=== PATIENT | male | born 1930 | race Caucasian/White ===

== ENCOUNTER 2017-09-05 18:39 | Inpatient (IN) | payer MEDICARE, MEDICAID ==
[2017-09-05] MEDS ORDERED: Haloperidol Lactate 5 mg/mL 1mL Vial ONE ×2 (19:07→23:02)
[2017-09-05] MEDS ORDERED: Haloperidol Lactate 5 mg/mL 1mL Vial IM STA (19:10)
--- NOTE | 2017-09-05 19:37 | ED Physician Chart ---
ED Chief Complaint/HPI - Patient Information Date Seen:: 09/05/17 Time Seen:: 19:00 Chief Complaint:: COMBATIVE History of Present Illness:: THIS IS A 87 YO COMBATIVE DEMENTED MALE SENT FROM THE GROUP HOME FOR EVALUATION AND TREATMENT. THE PATIENT IS CHRONICALLY ILL WITH HYPERTENSION, GLAUCOMA AND ANEMIA WITH DEMENTIA. Allergies:: Allergies Allergy/AdvReac Type Severity Reaction Status Date / Time No Known Allergies Allergy Verified 09/05/17 18:52 Vitals:: Vital Signs - 8 hr 09/05/17 18:53 Temp 98.9 F HR 86 RR 16 BP 125/81 O2 Sat % 94 Historian:: Medical Records Review:: Nurse's Note Reviewed, Old Chart Reviewed, Transfer documents Reviewed ED Review of Systems - Review of Systems General/Constitutional: No fever, No chills, No weight loss, No weakness, No diaphoresis, No edema, No loss of appetite, Other (THIS PATIENT IS UNABLE TO GIVE A REVIEW OF SYSTEMS) Skin: No skin lesions, No rash, No bruising Head: No headache, No light-headedness Eyes: No loss of vision, No pain, No diplopia ENT: No earache, No nasal drainage, No sore throat, No tinnitus Neck: No neck pain, No swelling, No thyromegaly, No stiffness, No mass noted Cardio Vascular: No chest pain, No palpitations, No PND, No orthopnea, No edema Pulmonary: No SOB, No cough, No sputum, No wheezing GI: No nausea, No vomiting, No diarrhea, No pain, No melena, No hematochezia, No constipation, No hematemesis G/U: No dysuria, No frequency, No hematuria Musculoskeletal: No bone or joint pain, No back pain, No muscle pain Endocrine: No polyuria, No polydipsia Psychiatric: No prior psych history, No depression, No anxiety, No suicidal ideation Hematopoietic: No bruising, No lymphadenopathy Allergic/Immuno: No urticaria, No angioedema Neurological: No syncope, No focal symptoms, No weakness, No paresthesia, No headache, No seizure, No dizziness, No confusion, No vertigo ED Past Medical History - Past Medical History Obtainable: Yes Past Medical History: HTN, Dementia, Other (GLAUCOMA, ANEMIA) Family Medical History - Family Member Mother History Unknown: Yes ED Physical Exam - Physical Examination General/Constitutional: Awake, Well-developed, well-nourished, Alert, No distress, GCS 15, Non-toxic appearing, Ambulatory Other Gen/Cons comments:: COMBATIVE, UNCOOPERATIVE AND CONFUSED. Head: Atraumatic Eyes: Lids, conjuctiva normal, PERRL, EOMI Skin: Nl inspection, No rash, No skin lesions, No ecchymosis, Well hydrated, No lymphadenopathy ENMT: External ears, nose nl, Nasal exam nl, Lips, teeth, gums nl Neck: Nontender, Full ROM w/o pain, No JVD, No nuchal rigidity, No bruit, No mass, No stridor Respiratory: Nl effort/Exclusion, Clear to Auscultation, No Wheeze/Rhonchi/Rales Cardio Vascular: RRR, No murmur, gallop, rubs, NL S1 S2 GI: No tenderness/rebounding/guarding, No organomegaly, No hernia, Normal BS's, Nondistended, No mass/bruits, No McBurney tenderness : No CVA tenderness Extremities: No tenderness or effusion, Full ROM, normal strength in all extremities, No edema, Normal digits & nails Neuro/Psych: Alert/oriented, DTR's symmetric, Normal sensory exam, Normal motor strength, Judgement/insight normal, Mood normal, Normal gait, No focal deficits Other Neuro/Psych comments:: THIS PATIENT IS COMBATIVE AND UNCOOPERATIVE, CONFUSED WITH HITTING OUT. Misc: Normal back, No paraspinal tenderness ED Labs/Radiology/EKG Results - Radiology Results Results: chest x-ray = nad - EKG Interpretations EKG Time:: 22:07 Rate & Rhythm: RATE=71, SINUS [place]: LEFT AXIS ED Assessment - Assessment General Assessment: SEVERE PSYCHOSIS ED Septic Shock - . Is Septic Shock (SBP<90, OR Lactate>4 mmol\L) present?: No - <6hrs of presentation: Vital Signs: Vital Signs - 8 hr 09/05/17 18:53 Temp 98.9 F HR 86 RR 16 BP 125/81 O2 Sat % 94 ED Reassessment (Disposition) - Reassessment Reassessment Condition:: Improved - Diagnosis Diagnosis:: PSYCHOSIS - Patient Disposition Discharge/Transfer:: Acute Care w/in this hosp Admitting Medical Physician:: Prashanth Quintana Admitting Psych Physician:: Allie Clarke Condition at Disposition:: Improved ED Discharge Plan - Patient Disposition Admit/Discharge/Transfer: Acute Care w/in this hosp Condition at Disposition: Improved
[2017-09-05 20:38] LABS: % BASOPHILS 1.2 % (0.0-2.0); % EOSINOPHILS 3.4 % (0.0-5.0); % LYMPHOCYTES 34.3 % (20.0-50.0); % NEUTROPHILS 51.1 % (40.0-80.0); BASOPHILE ABSOLUTE 0.1 Th/cumm (0-0.2); EOSINOPHILE ABSOLUTE 0.2 Th/cmm (0.1-0.4); HEMATOCRIT 39.2 % (41.0-60); LYMPHOCYTE ABSOLUTE 2.3 Th/cmm (1.5-3.0); MEAN CELL VOLUME 88.9 fl (80-99); MEAN CORPUSCULAR HEMOGLOBIN 29.6 pg (27.0-31.0); MEAN CORPUSCULAR HGB CONC 33.3 pg (28.0-36.0); MEAN PLATELET VOLUME 7.2 fl; MONOCYTE ABSOLUTE 0.7 Th/cmm (0.3-1.0); NEUTROPHILE ABSOLUTE 3.5 Th/cmm (1.8-8.0); PLATELET COUNT 237 Th/cmm (150-400); RED BLOOD COUNT 4.41 Mil/cmm (3.80-5.80); WHITE BLOOD COUNT 6.8 Th/cmm (4.8-10.8)
[2017-09-05 20:50] LABS: INR 1.01 (0.5-1.4); PROTHROMBIN TIME (TEST) 10.5 SECONDS (9.5-11.5)
[2017-09-05 20:53] LABS: ALB/GLOB RATIO 1.7 (1.0-1.8); ALBUMIN 3.8 gm/dL (4.2-5.5); ALKALINE PHOSPHATASE 115 U/L (34-104); BILIRUBIN,TOTAL 0.3 mg/dL (0.3-1.0); BUN - UREA NITROGEN 23 mg/dL (7-25); CALCIUM SERUM 9.5 mg/dL (8.6-10.3); CARBON DIOXIDE 25.9 mEq/L (21.0-31.0); CHLORIDE 107 mEq/L (98-107); GLUCOSE 89 mg/dL (70-105); POTASSIUM SERUM 4.9 mEq/L (3.5-5.1); SGOT 21 U/L (13-39); SGPT/ALT 15 U/L (7-52); SODIUM SERUM 139 mEq/L (136-145); TOTAL PROTEIN,SERUM 6.1 gm/dL (6.0-8.3)
[2017-09-06 00:16] VITALS: BP 162/80
[2017-09-06] MEDS ORDERED: Magnesium Hydroxide (MOM) 30 mL UDC PO PRN (00:17)
[2017-09-06] MEDS ORDERED: Maalox 30 mL Cup PO PRN (00:17)
[2017-09-06] MEDS ORDERED: Influenza Vaccine 0.5 mL Syr IM ONE (04:21)
--- NOTE | 2017-09-06 05:26 | History and Physical ---
History of Present Illness - HPI Chief Complaint: Combativeness HPI: 87 Y/O male who presents to [facility] ER who was sent from SNF for COMBATIVE behavior and increased DEMENTIA noted by the stadd at the [facility]. Was sent FOR EVALUATION AND TREATMENT. PMH includes HYPERTENSION, BPH, GLAUCOMA AND ANEMIA WITH DEMENTIA. VS T98.2 P102 BP 141/74 R20 Vital Signs: Last Vital Signs Temp 97.4 F 09/06/17 00:14 Pulse 73 09/06/17 00:14 Resp 20 09/06/17 00:14 BP 162/80 09/06/17 00:16 Pulse Ox 96 09/06/17 00:14 Past Medical History Cardiovascular: Report: HTN Pulmonary: Report: No Pertinent Hx RED LEADER: Report: Dementia GI: Report: Constipation Psych: Report: Psychosis Musculoskeletal: Report: No Pertinent Hx Rheumatologic: Report: No pertinent Hx Infectious Disease: Report: No Pertinent Hx Renal/: Report: No Pertinent Hx Endocrine: Report: No Pertinent Hx Dermatology: Report: No Pertinent Hx - Past Surgical History Past Surgical History: No pertinent Hx Family Medical History - Family Member Mother History Unknown: Yes Social History Smoke: No Alcohol: None Drugs: None Lives: Alone - Medications Home Medications: Home Medication Medication Instructions Recorded Type Acetaminophen [Tylenol] 650 mg PO Q6HR PRN 09/05/17 History Ascorbate Calcium [Vitamin C] 500 mg PO DAILY 09/05/17 History Clonidine HCl [Catapres] 0.1 mg PO Q8H PRN 09/05/17 History Donepezil HCl [Aricept] 10 mg PO HS 09/05/17 History Ferrous Sulfate 330 mg PO BID 09/05/17 History Furosemide [Lasix] 20 mg PO DAILY 09/05/17 History Lactose-Reduced Food [Ensure Plus 240 ml PO DAILY 09/05/17 History 240 ml] Lactose-Reduced Food [High-Protein 8 oz PO BID 09/05/17 History Nutritional Shake] Latanoprost 0.005% Ophth Soln 1 drop EACH EYE HS 09/05/17 History [Xalatan 0.005% Ophth Soln] Lorazepam [Ativan] 0.5 mg PO Q6H PRN 09/05/17 History Tamsulosin [Flomax] 0.4 mg PO HS 09/05/17 History amLODIPine Besylate [Norvasc] 5 mg PO DAILY 09/05/17 History - Allergies Allergies/Adverse Reactions: Allergies Allergy/AdvReac Type Severity Reaction Status Date / Time No Known Allergies Allergy Verified 09/05/17 18:52 Review of Systems - Review of Systems Constitutional: Report: No Significant Eyes: Report: No Significant ENT: Report: No Significant Respiratory: Report: No Significant Cardiovascular: Report: No Significant Gastrointestinal: Report: No Significant Genitourinary: Report: No Significant Musculoskeletal: Report: No Significant Skin: Report: No Significant Neurological: Report: No Significant Physical Exam - Physical Exam HEENT: Report: Ears Nose Throat within normal limits, Pharnyx within normal limits Neck: Report: Within normal limits Cardiovascular Systems: Report: +s1/s2 noted, Regular, Rate and Rhythm Respiratory: Report: Breath Sounds are within normal limits, Clear to Auscultation of lung lloyd Abdomen: Report: Non-tender to palpation Back: Report: Inspection of back is within normal limits. Extremities: Report: Non-tender to palpation. Skin: Report: Color of skin is within normal limits Neuro/Psych: Report: Mood affect is within normal limits, A+Ox3 - Assessment Assessment: Current Active Problems Problem Status Onset INCREASED AGITATION AND CONFUSION Acute Psychosis HTN Dementia BPH Insomnia - Plan Plan: admit to [facility] continue home meds
[2017-09-06] MEDS ORDERED: FERROUS SULFATE 330 MG PO SCH (09:00)
--- NOTE | 2017-09-06 09:46 | Diagnostic Imaging Report ---
Chest x-ray single view History: Chest pain Comparison: None The heart size is normal. No focal pulmonary parenchymal processes. No hilar or mediastinal abnormalities. COPD changes are noted. Healed fracture of the left clavicle noted Impression: No acute abnormalities.
[2017-09-06] MEDS: Ferrous Sulfate 325 MG TAB PO SCH ×2 (10:00→18:24)
[2017-09-06] MEDS: Multivitamin Tab PO SCH (10:00)
--- NOTE | 2017-09-07 05:39 | General Progress Note ---
Subjective - Review of Systems Service Date: 09/07/17 Subjective: Awake, Afebrile. but confused. VST97.8 P78 R18 BP 120/66 Objective - Results Result Diagrams: 09/05/17 20:09/05/17 20: Recent Labs: Laboratory Last Values WBC 6.8 Th/cmm (4.8-10.8) 09/05/17 20: RBC 4.41 Mil/cmm (3.80-5.80) 09/05/17 20: Hgb 13.0 gm/dL (12-16) 09/05/17 20: Hct 39.2 % (41.0-60) L 09/05/17 20: MCV 88.9 fl (80-99) 09/05/17 20: MCH 29.6 pg (27.0-31.0) 09/05/17 20: MCHC Differential 33.3 pg (28.0-36.0) 09/05/17 20: RDW 14.0 % (11.5-20.0) 09/05/17 20: Plt Count 237 Th/cmm (150-400) 09/05/17 20:21 MPV 7.2 fl 09/05/17 20:21 Neutrophils % 51.1 % (40.0-80.0) 09/05/17 20: Lymphocytes % 34.3 % (20.0-50.0) 09/05/17 20: Monocytes % 10.0 % (2.0-10.0) 09/05/17 20: Eosinophils % 3.4 % (0.0-5.0) 09/05/17 20: Basophils % 1.2 % (0.0-2.0) 09/05/17 20: PT 10.5 SECONDS (9.5-11.5) 09/05/17 20: INR 1.01 (0.5-1.4) 09/05/17 20: PTT (Actin FS) 27.7 SECONDS (26.0-38.0) 09/05/17 20:21 Sodium 139 mEq/L (136-145) 09/05/17 20:21 Potassium 4.9 mEq/L (3.5-5.1) 09/05/17 20:21 Chloride 107 mEq/L (98-107) 09/05/17 20:21 Carbon Dioxide 25.9 mEq/L (21.0-31.0) 09/05/17 20:21 Anion Gap 11.0 (7.0-16.0) 09/05/17 20:21 BUN 23 mg/dL (7-25) 09/05/17 20:21 Creatinine 1.0 mg/dL (0.7-1.3) 09/05/17 20:21 Est GFR ( Amer) TNP 09/05/17 20:21 Est GFR (Non-Af Amer) TNP 09/05/17 20:21 BUN/Creatinine Ratio 23.0 09/05/17 20:21 Glucose 89 mg/dL (70-105) 09/05/17 20:21 Calcium 9.5 mg/dL (8.6-10.3) 09/05/17 20:21 Total Bilirubin 0.3 mg/dL (0.3-1.0) 09/05/17 20:21 AST 21 U/L (13-39) 09/05/17 20:21 ALT 15 U/L (7-52) 09/05/17 20:21 Alkaline Phosphatase 115 U/L (34-104) H 09/05/17 20:21 Troponin I 0.02 ng/mL (0.01-0.05) 09/05/17 20:21 Total Protein 6.1 gm/dL (6.0-8.3) 09/05/17 20:21 Albumin 3.8 gm/dL (4.2-5.5) L 09/05/17 20:21 Globulin 2.3 gm/dL 09/05/17 20:21 Albumin/Globulin Ratio 1.7 (1.0-1.8) 09/05/17 20:21 TSH 2.30 uIU/ml (0.34-5.60) 09/05/17 20:21 - Physical Exam Vitals and I&O: Vital Signs Temp 97.8 F 09/06/17 20:35 Pulse 78 09/06/17 20:35 Resp 18 09/06/17 20:35 BP 120/66 09/06/17 14:00 Pulse Ox 98 09/06/17 20:35 Intake & Output 03/2409/06/17 09/07/17 06:59 18:59 06:59 Intake Total 120 1640 320 Balance 120 1640 320 Intake: Oral 120 1640 320 Other: # Voids 1 4 1 # Bowel Movements 0 Active Medications: Current Medications Acetaminophen (Tylenol) 650 mg PO Q4HR PRN PRN Reason: Mild Pain / Temp above 100 Stop: 11/05/17 00:16 Al Hydrox/Mg Hydrox/Simethicone (Maalox) 30 ml PO Q4HR PRN PRN Reason: GI DISTRESS Stop: 11/05/17 00:16 Amlodipine Besylate (Norvasc) 5 mg PO DAILY ANG Stop: 11/05/17 08:59 Last Admin: 09/06/17 10:00 Dose: Not Given Ascorbic Acid (Vitamin C) 500 mg PO DAILY ANG Stop: 11/05/17 08:59 Last Admin: 09/06/17 10:00 Dose: Not Given Diphenhydramine HCl (Benadryl 50 Mg/Ml) 50 mg IM Q4HR PRN PRN Reason: Agitation Stop: 11/04/17 21:25 Last Admin: 09/05/17 21:34 Dose: 50 mg Donepezil HCl (Aricept) 10 mg PO HS ANG Stop: 11/05/17 20:59 Last Admin: 09/06/17 22:00 Dose: 10 mg Ferrous Sulfate (Iron) 325 mg PO BID ANG Stop: 11/05/17 08:59 Last Admin: 09/06/17 18:24 Dose: 325 mg Furosemide (Lasix) 20 mg PO DAILY ANG Stop: 11/05/17 08:59 Last Admin: 09/06/17 10:00 Dose: Not Given Latanoprost (Xalatan 0.005% Ophth Soln) 1 drop EACH EYE HS ANG Stop: 11/05/17 20:59 Last Admin: 09/06/17 22:00 Dose: 1 drop Magnesium Hydroxide (Milk Of Magnesia) 30 ml PO HS PRN PRN Reason: Constipation Memantine (Namenda) 5 mg PO DAILY ANG Stop: 11/06/17 08:59 Multivitamins/Vitamin C (Theragran) 1 tab PO DAILY ANG Stop: 11/05/17 08:59 Last Admin: 09/06/17 10:00 Dose: Not Given Olanzapine (Zyprexa) 2.5 mg PO BID ANG PRN Reason: Protocol Stop: 11/05/17 16:59 Last Admin: 09/06/17 16:29 Dose: 2.5 mg Tamsulosin HCl (Flomax) 0.4 mg PO HS ANG Stop: 11/05/17 20:59 Last Admin: 09/06/17 20:00 Dose: 0.4 mg Zolpidem Tartrate (Ambien) 5 mg PO HS PRN PRN Reason: Insomnia Stop: 11/05/17 00:16 Last Admin: 09/06/17 22:14 Dose: 5 mg General: Alert, Oriented x3, No acute distress HEENT: Atraumatic, PERRLA, EOMI Neck: Supple, no JVD Cardiovascular: Regular rate, Normal S1, Normal S2 Lungs: Clear to auscultation Abdomen: Bowel sounds Extremities: no Clubbing, no Cyanosis, no Edema Neurological: Normal gait Assessment/Plan - Problem List Patient Problems: All Active Problems INCREASED AGITATION AND CONFUSION (Acute) - Assessment Assessment: Current Active Problems Problem Status Onset INCREASED AGITATION AND CONFUSION Acute Psychosis HTN Dementia BPH Insomnia - Plan Plan: admit to [facility] continue home meds
[2017-09-07] MEDS: Ferrous Sulfate 325 MG TAB PO SCH ×2 (11:29→17:54)
[2017-09-07] MEDS: Multivitamin Tab PO SCH (11:41)
--- NOTE | 2017-09-07 17:42 | Psychosocial Evaluation ---
DATE OF SERVICE: INITIAL PSYCHIATRIC EVALUATION COVERING FOR: Dr. Clarke. IDENTIFYING DATA: The patient is an 87-year-old male. CHIEF COMPLAINT: Confused. HISTORY OF PRESENT ILLNESS: He is an 87-year-old male who was initially brought in here by [facility], was sent from his [facility] after presenting with combative and also behavior psychotic and also medically cleared prior to being transferred here. Today, on [id number] evaluation, the patient observed to be slightly sedated after given Haldol IM injection for agitated and aggressive behavior yesterday, very extremely poor historian, limited historian. He is still a kind of sleepy from yesterday, unable to get much information. We will obtain more collateral baseline information. PAST MEDICAL HISTORY: Include hypertension, BPH, glaucoma, anemia. PAST PSYCHIATRIC HISTORY: Dementia. HOME MEDICATIONS: Include acetaminophen, clonidine, benazepril 10 mg a day, ferrous sulfate, Lasix, lactulose, ____, Ativan as needed, amlodipine. ALLERGIES TO MEDICATIONS: NKDA. FAMILY PSYCHIATRIC HISTORY: Unknown. LEGAL HISTORY: Unknown. PSYCHOSOCIAL ENVIRONMENTAL HISTORY: No alcohol or drug use. Currently living in a [facility]p. LABORATORY DATA: Reviewed, unremarkable. MENTAL STATUS EXAMINATION: Slightly sedated, difficult to wake up, but redirectable. Unable to assess thought process, thought content, derailed, delusional. Limited insight ____ control. ASSESSMENT: PHYSICAL PAIN: 0 out of 10, no physical impairment. STRENGTH: Open to treatment. WEAKNESS: Poor coping skills. PROVISIONAL DIAGNOSTIC IMPRESSION: Dementia with behavior disturbances and psychosis. SECONDARY DIAGNOSIS: None. MEDICAL DIAGNOSIS: As noted above. ASSESSMENT AND PLAN: The patient is an 87-year-old male with a history of severe dementia with recent exacerbation of behavior. PLAN: We will continue monitoring and evaluating. We will continue with the current medication regimen and augment with Namenda 5 mg and allow the residual ____ from the sedation of medications to further evaluate and obtain more collateral information. Estimated stay between 2-4 weeks. DISCHARGE CRITERIA: The patient is to demonstrate euthymic mood, no suicidal or homicidal ideation, good psychiatric followup, and good [id number] interaction. [facility]# [id number]
--- NOTE | 2017-09-08 08:20 | General Progress Note ---
Subjective - Review of Systems Service Date: 09/08/17 Subjective: Awake, Afebrile. but confused. VST97.2 P84 R18 BP 122/67 Objective - Results Result Diagrams: 09/05/17 20:09/05/17 20: Recent Labs: Laboratory Last Values WBC 6.8 Th/cmm (4.8-10.8) 09/05/17 20: RBC 4.41 Mil/cmm (3.80-5.80) 09/05/17 20: Hgb 13.0 gm/dL (12-16) 09/05/17 20: Hct 39.2 % (41.0-60) L 09/05/17 20: MCV 88.9 fl (80-99) 09/05/17 20: MCH 29.6 pg (27.0-31.0) 09/05/17 20: MCHC Differential 33.3 pg (28.0-36.0) 09/05/17 20: RDW 14.0 % (11.5-20.0) 09/05/17 20: Plt Count 237 Th/cmm (150-400) 09/05/17 20:21 MPV 7.2 fl 09/05/17 20:21 Neutrophils % 51.1 % (40.0-80.0) 09/05/17 20: Lymphocytes % 34.3 % (20.0-50.0) 09/05/17 20: Monocytes % 10.0 % (2.0-10.0) 09/05/17 20: Eosinophils % 3.4 % (0.0-5.0) 09/05/17 20: Basophils % 1.2 % (0.0-2.0) 09/05/17 20: PT 10.5 SECONDS (9.5-11.5) 09/05/17 20: INR 1.01 (0.5-1.4) 09/05/17 20: PTT (Actin FS) 27.7 SECONDS (26.0-38.0) 09/05/17 20:21 Sodium 139 mEq/L (136-145) 09/05/17 20:21 Potassium 4.9 mEq/L (3.5-5.1) 09/05/17 20:21 Chloride 107 mEq/L (98-107) 09/05/17 20:21 Carbon Dioxide 25.9 mEq/L (21.0-31.0) 09/05/17 20:21 Anion Gap 11.0 (7.0-16.0) 09/05/17 20:21 BUN 23 mg/dL (7-25) 09/05/17 20:21 Creatinine 1.0 mg/dL (0.7-1.3) 09/05/17 20:21 Est GFR ( Amer) TNP 09/05/17 20:21 Est GFR (Non-Af Amer) TNP 09/05/17 20:21 BUN/Creatinine Ratio 23.0 09/05/17 20:21 Glucose 89 mg/dL (70-105) 09/05/17 20:21 Calcium 9.5 mg/dL (8.6-10.3) 09/05/17 20:21 Total Bilirubin 0.3 mg/dL (0.3-1.0) 09/05/17 20:21 AST 21 U/L (13-39) 09/05/17 20:21 ALT 15 U/L (7-52) 09/05/17 20:21 Alkaline Phosphatase 115 U/L (34-104) H 09/05/17 20:21 Troponin I 0.02 ng/mL (0.01-0.05) 09/05/17 20:21 Total Protein 6.1 gm/dL (6.0-8.3) 09/05/17 20:21 Albumin 3.8 gm/dL (4.2-5.5) L 09/05/17 20:21 Globulin 2.3 gm/dL 09/05/17 20:21 Albumin/Globulin Ratio 1.7 (1.0-1.8) 09/05/17 20:21 TSH 2.30 uIU/ml (0.34-5.60) 09/05/17 20:21 - Physical Exam Vitals and I&O: Vital Signs Temp 97.2 F 09/08/17 06:48 Pulse 84 09/08/17 06:48 Resp 18 09/08/17 06:48 BP 122/67 09/08/17 06:48 Pulse Ox 96 09/08/17 06:48 Intake & Output 09/07/17 09/08/1709/08/18 18:59 06:59 18:59 Intake Total 770 240 Balance 770 240 Intake: Oral 770 240 Other: # Voids 3 1 # Bowel Movements 0 Active Medications: Current Medications Acetaminophen (Tylenol) 650 mg PO Q4HR PRN PRN Reason: Mild Pain / Temp above 100 Stop: 11/05/17 00:16 Al Hydrox/Mg Hydrox/Simethicone (Maalox) 30 ml PO Q4HR PRN PRN Reason: GI DISTRESS Stop: 11/05/17 00:16 Amlodipine Besylate (Norvasc) 5 mg PO DAILY ANG Stop: 11/05/17 08:59 Last Admin: 09/07/17 11:28 Dose: 5 mg Ascorbic Acid (Vitamin C) 500 mg PO DAILY ANG Stop: 11/05/17 08:59 Last Admin: 09/07/17 11:29 Dose: 500 mg Diphenhydramine HCl (Benadryl 50 Mg/Ml) 50 mg IM Q4HR PRN PRN Reason: Agitation Stop: 11/04/17 21:25 Last Admin: 09/05/17 21:34 Dose: 50 mg Donepezil HCl (Aricept) 10 mg PO HS ANG Stop: 11/05/17 20:59 Last Admin: 09/07/17 21:28 Dose: 10 mg Ferrous Sulfate (Iron) 325 mg PO BID ANG Stop: 11/05/17 08:59 Last Admin: 09/07/17 17:54 Dose: Not Given Furosemide (Lasix) 20 mg PO DAILY ANG Stop: 11/05/17 08:59 Last Admin: 09/07/17 11:29 Dose: 20 mg Latanoprost (Xalatan 0.005% Ophth Soln) 1 drop EACH EYE HS ANG Stop: 11/05/17 20:59 Last Admin: 09/07/17 21:29 Dose: 1 drop Magnesium Hydroxide (Milk Of Magnesia) 30 ml PO HS PRN PRN Reason: Constipation Memantine (Namenda) 5 mg PO DAILY ANG Stop: 11/06/17 08:59 Last Admin: 09/07/17 11:41 Dose: 5 mg Multivitamins/Vitamin C (Theragran) 1 tab PO DAILY ANG Stop: 11/05/17 08:59 Last Admin: 09/07/17 11:41 Dose: 1 tab Olanzapine (Zyprexa) 2.5 mg PO DAILY ANG PRN Reason: Protocol Stop: 11/06/17 08:59 Last Admin: 09/07/17 11:40 Dose: 2.5 mg Olanzapine (Zyprexa) 5 mg PO HS ANG PRN Reason: Protocol Stop: 11/06/17 20:59 Last Admin: 09/07/17 21:28 Dose: 5 mg Tamsulosin HCl (Flomax) 0.4 mg PO HS ANG Stop: 11/05/17 20:59 Last Admin: 09/07/17 21:28 Dose: 0.4 mg Zolpidem Tartrate (Ambien) 5 mg PO HS PRN PRN Reason: Insomnia Stop: 11/05/17 00:16 Last Admin: 09/07/17 21:28 Dose: 5 mg General: Alert, Oriented x3, No acute distress HEENT: Atraumatic, PERRLA, EOMI Neck: Supple, no JVD Cardiovascular: Regular rate, Normal S1, Normal S2 Lungs: Clear to auscultation Abdomen: Bowel sounds Extremities: no Clubbing, no Cyanosis, no Edema Neurological: Normal gait Assessment/Plan - Problem List Patient Problems: All Active Problems INCREASED AGITATION AND CONFUSION (Acute) - Assessment Assessment: Current Active Problems Problem Status Onset INCREASED AGITATION AND CONFUSION Acute Psychosis HTN Dementia BPH Insomnia - Plan [facility]
--- NOTE | 2017-09-08 08:58 | Progress Notes ---
DATE: 09/07/2017 SUBJECTIVE: The patient was seen and evaluated. The patient's chart reviewed. This is Dr. Valentine covering for Dr. Clarke. Nursing staff reported that overnight the patient continues to disrobe, disengage, could not sleep at all last night. Today on [id number] evaluation on interview, minimally interactive, disorganized, mostly just stares. MENTAL STATUS EXAMINATION: Disorganized thought process, disengaged, severely memory and cognitively impaired. ASSESSMENT AND PLAN: The patient is an 87-year-old severely cognitively impaired with dementia. We will continue consolidating his Zyprexa to nighttime to 5 mg to continue to targeting the insomnia that exacerbates the patient's behavior of disrobing. Continue with the neurocognitive enhancer while we obtain more collateral baseline information and awaiting medical consultation. JOB# [id number]
[2017-09-08] MEDS: Ferrous Sulfate 325 MG TAB PO SCH ×2 (09:30→16:46)
[2017-09-08] MEDS: Multivitamin Tab PO SCH (09:31)
[2017-09-08] MEDS ORDERED: Albuterol/Ipratropium Neb 3 ML AERS HHN PRN (15:05)
--- NOTE | 2017-09-08 15:13 | Diagnostic Imaging Report ---
CHEST X-RAY: AP view INDICATION: Pneumonia COMPARISON: 09/05/2017 FINDINGS: Bibasal infiltrates are noted. Small bilateral effusions are noted. Height size is normal. IMPRESSION: Bibasal infiltrates and small bilateral effusions..
[2017-09-08 17:40] LABS: pH 7.46 (7.35-7.45)
[2017-09-08 17:48] LABS: ANION GAP 13.6 (7.0-16.0); BUN - UREA NITROGEN 48 mg/dL (7-25); CARBON DIOXIDE 23.6 mEq/L (21.0-31.0); CHLORIDE 103 mEq/L (98-107); CREATININE - SERUM 1.2 mg/dL (0.7-1.3); GLUCOSE 193 mg/dL (70-105); POTASSIUM SERUM 4.2 mEq/L (3.5-5.1); SODIUM SERUM 136 mEq/L (136-145)
[2017-09-08 18:02] LABS: % EOSINOPHILS 0.2 % (0.0-5.0); % LYMPHOCYTES 6.5 % (20.0-50.0); % MONOCYTES 8.5 % (2.0-10.0); % NEUTROPHILS 84.8 % (40.0-80.0); HEMATOCRIT 40.5 % (41.0-60); HEMOGLOBIN 13.3 gm/dL (12-16); LYMPHOCYTE ABSOLUTE 0.9 Th/cmm (1.5-3.0); MEAN CELL VOLUME 88.8 fl (80-99); MEAN CORPUSCULAR HEMOGLOBIN 29.2 pg (27.0-31.0); MEAN CORPUSCULAR HGB CONC 32.9 pg (28.0-36.0); MONOCYTE ABSOLUTE 1.1 Th/cmm (0.3-1.0); NEUTROPHILE ABSOLUTE 11.2 Th/cmm (1.8-8.0); PLATELET COUNT 173 Th/cmm (150-400); RED BLOOD COUNT 4.56 Mil/cmm (3.80-5.80); RED CELL DISTRIBUTION WIDTH 14.1 % (11.5-20.0)
[2017-09-08 18:06] LABS: WHITE BLOOD COUNT 13.2 Th/cmm (4.8-10.8)
[2017-09-09 16:09] LABS: A1C % 5.1 % (4.0-6.0)
== END 2017-09-08 18:04 | DRG 885 ==
LOC: ER 18:39 → GERO 21:10
PROVIDERS: ADMIT Psychiatry & Neurology Psychiatry; ATTEND Psychiatry & Neurology Psychiatry
DX: F29 Unspecified psychosis not due to a substance or known physiological condition (principal); F03.91 Unspecified dementia, unspecified severity, with behavioral disturbance; D64.9 Anemia, unspecified; I10 Essential (primary) hypertension; N40.0 Benign prostatic hyperplasia without lower urinary tract symptoms; G47.00 Insomnia, unspecified; H40.9 Unspecified glaucoma
CPT/HCPCS: 36415-UA; 36600-90; 71045-TC; 80048-TC; 80053-TC; 82803-TC; 82948-90; 83036-90; 83880-TC; 84443-TC; 84484-TC; 85007-TC; 85025-TC; 85027-TC; 85610-TC; 85730-TC; 93005; 94640; 94760; J1200; J1630; J2060; J7051; Z7610

== ENCOUNTER 2017-09-08 18:05 | Inpatient (IN) | payer MEDICARE, MEDICAID ==
--- NOTE | 2017-09-08 21:07 | Progress Notes ---
DATE: 09/08/2017 Case was discussed with staff of the patient, reviewed records. This is a well-known case to me. I have been seeing him at [facility]. The patient is demented, confused. He was sent from [facility] to his nursing facility after presenting he was combative and psychotic. He was medically cleared before transferring him here. He was somewhat sedated, given Haldol upon admission because of his behavior the day before. He was a very poor historian and limited, which has been all the time since I have been seeing him. The patient also with a history of dementia and also hypertension, glaucoma, and anemia. The patient is unable to participate in any meaningful conversation or make safe plan for self-care. He is unpredictable, impulsive, needing redirection. He has been on Aricept 10 mg at bedtime and Namenda 5 mg daily that was initiated yesterday by Dr. Valentine and he is also on Zyprexa 2.5 mg in the morning and 5 mg at bedtime. Unable to tell me the date where he is, why he is here. No side effects with the medication, no sedation nausea, no extrapyramidal symptoms. We will continue to work with the patient in group therapy, milieu therapy, adjust medication as needed. JOB# [id number]
[2017-09-08] MEDS ORDERED: Maalox 30 mL Cup PO PRN (22:13)
[2017-09-08] MEDS ORDERED: Magnesium Hydroxide (MOM) 30 mL UDC PO PRN (22:21)
[2017-09-08] MEDS ORDERED: Pneumococcal Vaccine 0.5 mL Vial IM ONE (22:44)
[2017-09-08] MEDS ORDERED: Influenza Vaccine 0.5 mL Syr IM ONE (22:44)
[2017-09-09] MEDS ORDERED: Levofloxacin 500mg/100mL 500 MG/100 ML BAG IV SCH (07:00)
[2017-09-09] MEDS: Albuterol/Ipratropium Neb 3 ML AERS HHN PRN (07:34)
--- NOTE | 2017-09-09 08:25 | History and Physical ---
History of Present Illness - HPI Chief Complaint: pneumonia HPI: 87 y/o male who was transferred from [facility] to Medical floor for possible pneumonia. patient was initially admitted to [facility] for psychosis but became short of breath. Chest xray revealed bilateral infiltrate and patient was transferred for further evaluation and treatment. initial labwork Vital Signs: Last Vital Signs Temp 97.9 F 09/09/17 04:00 Pulse 87 09/09/17 07:34 Resp 20 09/09/17 07:34 BP 145/72 09/09/17 04:00 Pulse Ox 95 09/09/17 07:34 Past Medical History Cardiovascular: Report: No Pertinent Hx Pulmonary: Report: Pneumonia [employer]: Report: No Pertinent Hx GI: Report: No Pertinent Hx Psych: Report: No Pertinent Hx Musculoskeletal: Report: No Pertinent Hx Rheumatologic: Report: No pertinent Hx Infectious Disease: Report: No Pertinent Hx Renal/: Report: No Pertinent Hx Endocrine: Report: No Pertinent Hx Dermatology: Report: No Pertinent Hx - Past Surgical History Past Surgical History: No pertinent Hx Family Medical History - Family Member Mother History Unknown: Yes Social History Smoke: No Alcohol: None Drugs: None Lives: Senior Living - Medications Home Medications: Home Medication Medication Instructions Recorded Type Acetaminophen [Tylenol] 650 mg PO Q4HR PRN tab 09/08/17 Rx Al Hyd/Mg Hyd/Simethicone [Maalox] 30 ml PO Q4HR PRN udc 09/08/17 Rx Albuterol/Ipratropium Neb [Duoneb 3 ml HHN Q4H PRN aers 09/08/17 Rx Neb] Ascorbic Acid [Vitamin C] 500 mg PO DAILY tab 09/08/17 Rx Donepezil Hcl [Aricept] 10 mg PO HS tab 09/08/17 Rx Ferrous Sulfate [Iron] 325 mg PO BID tab 09/08/17 Rx Furosemide [Lasix] 20 mg PO DAILY tab 09/08/17 Rx Latanoprost 0.005% Ophth Soln 1 drop EACH EYE HS drops 09/08/17 Rx [Xalatan 0.005% Ophth Soln] Magnesium Hydroxide [Milk of 30 ml PO HS PRN udc 09/08/17 Rx Magnesia] Memantine [Namenda] 5 mg PO DAILY tab 09/08/17 Rx Multivitamin [Theragran] 1 tab PO DAILY tab 09/08/17 Rx OLANZapine [ZyPREXA] 2.5 mg PO DAILY tab 09/08/17 Rx OLANZapine [ZyPREXA] 5 mg PO HS tab 09/08/17 Rx Tamsulosin [Flomax] 0.4 mg PO HS cap 09/08/17 Rx Zolpidem Tartrate [Ambien] 5 mg PO HS PRN tab 09/08/17 Rx amLODIPine Besylate [Norvasc] 5 mg PO DAILY tab 09/08/17 Rx cloNIDine HCl [Catapres] 0.1 mg PO Q8H PRN tab 09/08/17 Rx diphenhydrAMINE [Benadryl 50 50 mg IM Q4HR PRN vial 09/08/17 Rx mg/mL] - Allergies Allergies/Adverse Reactions: Allergies Allergy/AdvReac Type Severity Reaction Status Date / Time No Known Allergies Allergy Verified 09/05/17 18:52 Review of Systems - Review of Systems Constitutional: Report: No Significant Eyes: Report: No Significant ENT: Report: No Significant Respiratory: Report: Cough, Wheezing Cardiovascular: Report: No Significant Gastrointestinal: Report: No Significant Genitourinary: Report: No Significant Musculoskeletal: Report: No Significant Skin: Report: No Significant Neurological: Report: No Significant Physical Exam - Physical Exam HEENT: Report: Ears Nose Throat within normal limits, Pharnyx within normal limits Neck: Report: Within normal limits Cardiovascular Systems: Report: +s1/s2 noted, Regular, Rate and Rhythm Respiratory: Report: Wheezing Abdomen: Report: Non-tender to palpation - Lab Results All Lab Results last 24 hours: Laboratory Results - last 24 hr 09/09/17 08:06 POC Glucose 116 H - Assessment Assessment: leukocytosis pneumonia htn bph glaucoma anemia dementia psychosis prerenal azotemia - Plan Plan: cbc cmp pulmonary consult id consult psyche consult levofloxacin 500mg IV daily gentle hydration
[2017-09-09] MEDS: Sodium Chloride 0.45% 1,000 ML IV SCH (08:49)
[2017-09-09] MEDS: Multivitamin Tab PO SCH (08:53)
[2017-09-09] MEDS ORDERED: Ferrous Sulfate 325 MG TAB PO SCH (09:00)
--- NOTE | 2017-09-09 09:05 | Diagnostic Imaging Report ---
Portable chest x-ray HISTORY: Shortness of breath Compared with the prior exam of September 03, 2015, 2017, persistent infiltrate is seen in the left lower lobe. The findings have increased since an exam of September 05, 2017. Changes suggest pneumonia. Clinical correlation is needed. IMPRESSION: 1. No change since September 08, 2017 with infiltrate in the left lower lobe. The findings have increased compared to September 05, 2017. Pneumonia cannot be excluded. Clinical correlation is needed.
[2017-09-09 10:51] LABS: % BASOPHILS 0.2 % (0.0-2.0); % EOSINOPHILS 0.2 % (0.0-5.0); % LYMPHOCYTES 11.2 % (20.0-50.0); % MONOCYTES 10.5 % (2.0-10.0); % NEUTROPHILS 77.9 % (40.0-80.0); HEMATOCRIT 37.4 % (41.0-60); HEMOGLOBIN 12.5 gm/dL (12-16); MEAN CELL VOLUME 88.5 fl (80-99); MEAN CORPUSCULAR HEMOGLOBIN 29.5 pg (27.0-31.0); MEAN CORPUSCULAR HGB CONC 33.4 pg (28.0-36.0); MEAN PLATELET VOLUME 7.9 fl; MONOCYTE ABSOLUTE 0.9 Th/cmm (0.3-1.0); NEUTROPHILE ABSOLUTE 6.9 Th/cmm (1.8-8.0); PLATELET COUNT 182 Th/cmm (150-400); RED BLOOD COUNT 4.23 Mil/cmm (3.80-5.80); RED CELL DISTRIBUTION WIDTH 13.9 % (11.5-20.0); WHITE BLOOD COUNT 8.8 Th/cmm (4.8-10.8)
[2017-09-09 11:02] LABS: ANION GAP 12.8 (7.0-16.0); BUN - UREA NITROGEN 40 mg/dL (7-25); CALCIUM SERUM 9.5 mg/dL (8.6-10.3); CARBON DIOXIDE 23.9 mEq/L (21.0-31.0); CHLORIDE 106 mEq/L (98-107); CREATININE - SERUM 0.9 mg/dL (0.7-1.3); GLUCOSE 140 mg/dL (70-105); POTASSIUM SERUM 3.7 mEq/L (3.5-5.1); SODIUM SERUM 139 mEq/L (136-145)
--- NOTE | 2017-09-09 23:13 | Progress Notes ---
DATE: 09/09/2017 SUBJECTIVE: Case is discussed with the staff of the patient and reviewed records. This is a well-known case to me as I have been seeing him at [facility] and he was admitted to [facility] because of his acting-out behavior and apparently he developed pneumonia, so transferred to the medical floor. Since being transferred into the unit, the patient was pulling his IVs and they have to put mittens for him, so he could be treated. He is demented, confused, unable to make safe plan for self-care, and so far no side effect from the medication. No sedation, no nausea. He is not on any antipsychotic; however, he is on Namenda 5 mg daily as well as Aricept 10 mg at bedtime and he was initiated on Zyprexa by Dr. Valentine 5 mg at bedtime and 2.5 mg in the morning with no side effects. Thank you very much for allowing me to participate in the care of this most interesting gentleman. JOB# [id number]
[2017-09-10] MEDS ORDERED: LEVOFLOXACIN IV ONE (03:14)
--- NOTE | 2017-09-10 04:52 | Consultation ---
DATE OF CONSULTATION: 09/09/2017 INFECTIOUS DISEASE CONSULTATION REFERRING PHYSICIAN: Dr. Jarrell. REASON FOR CONSULTATION: Pneumonia. HISTORY OF PRESENT ILLNESS: The patient is an 87-year-old male with a past medical history of psychosis, dementia, admitted to Geropsych Unit for psychosis. In the Geropsych Unit, the patient became short of breath. Chest x-ray showed evidence of pneumonia. The patient is a poor historian, unable to give any history. So far, the patient had no fever. On initial evaluation, the patient's temperature is 99.1 degree Fahrenheit and WBC count was 8800. Liver functions were started. ID consult was called for antibiotic management. PAST MEDICAL HISTORY: Includes dementia, psychosis, hypertension, BPH, glaucoma, anemia. ALLERGIES: NKDA. MEDICATIONS: As per medication reconciliation sheet. Antibiotic luciano, he is receiving levofloxacin. SOCIAL HISTORY: No history of smoking, alcohol or drug use. The patient lives at nursing facility. PAST SURGICAL HISTORY: None significant. REVIEW OF SYSTEMS: Unable to give any history. With a limited examination CONSTITUTIONAL: The patient has no fever, no chills. HEENT: No diplopia, no photophobia. RESPIRATORY: The patient has cough and shortness of breath with wheezing. CARDIOVASCULAR: No chest pain, no palpitation. GASTROINTESTINAL: No nausea, no vomiting, no diarrhea. No constipation. GENITOURINARY: No dysuria. MUSCULOSKELETAL: No muscle pain, no joint pain. NEUROLOGIC: No headache, no dizziness, no focal weakness. PHYSICAL EXAMINATION: VITAL SIGNS: Shows temperature is 98.9 degrees Fahrenheit, pulse 89, respirations 19, blood pressure 116/49, oxygen saturation 96%. GENERAL: The patient is comfortable. HEENT: Head is normocephalic, atraumatic. Oral cavity moist, pink tongue. Eyes: Pallor is present, no icterus. PERRLA, EOMI. NECK: Supple, no JVD, no carotid bruit. Trachea midline. CHEST: Bilateral breath sounds, crackles present. HEART: S1, S2 within normal limits. Regular rhythm. No murmur, no gallop. ABDOMEN: Soft, nontender, nondistended. Bowel sounds present. EXTREMITIES: No cyanosis, no clubbing, no edema. NEUROLOGIC: Alert and awake. LABORATORY DATA: Lab luciano current lab shows WBC count 8800, hemoglobin 12.5, hematocrit 37.4, platelets are 182,000, neutrophils 78%. Sodium 139, potassium 3.7, chloride 106, bicarbonate is 24, BUN is 40, creatinine 0.9, glucose is 140. A chest x-ray showed an increase in the left lower lobe infiltrate with changes consistent with pneumonia. IMPRESSION: 1. Pneumonia. 2. Dementia. 3. Psychosis. 4. Anemia. 5. Benign prostatic hypertrophy. 6. Hypertension. 7. Glaucoma. 8. Prerenal azotemia. RECOMMENDATION AND PLAN: I agree with continuing levofloxacin. Because of the age, we will make Levaquin 250 mg p.o. daily. Thank you, Dr. Jarrell for involving me in taking care of this patient. JOB# [id number]
[2017-09-10] MEDS: Sodium Chloride 0.45% 1,000 ML IV SCH (06:11)
[2017-09-10 06:43] LABS: % BASOPHILS 0.4 % (0.0-2.0); % EOSINOPHILS 0.7 % (0.0-5.0); % LYMPHOCYTES 16.7 % (20.0-50.0); % MONOCYTES 13.9 % (2.0-10.0); % NEUTROPHILS 68.3 % (40.0-80.0); EOSINOPHILE ABSOLUTE 0.1 Th/cmm (0.1-0.4); HEMOGLOBIN 11.9 gm/dL (12-16); LYMPHOCYTE ABSOLUTE 1.6 Th/cmm (1.5-3.0); MEAN CELL VOLUME 88.8 fl (80-99); MEAN CORPUSCULAR HEMOGLOBIN 29.4 pg (27.0-31.0); MEAN CORPUSCULAR HGB CONC 33.1 pg (28.0-36.0); MEAN PLATELET VOLUME 7.9 fl; MONOCYTE ABSOLUTE 1.3 Th/cmm (0.3-1.0); NEUTROPHILE ABSOLUTE 6.5 Th/cmm (1.8-8.0); PLATELET COUNT 183 Th/cmm (150-400); RED BLOOD COUNT 4.05 Mil/cmm (3.80-5.80); RED CELL DISTRIBUTION WIDTH 14.1 % (11.5-20.0); WHITE BLOOD COUNT 9.5 Th/cmm (4.8-10.8)
[2017-09-10 07:03] LABS: ANION GAP 11.3 (7.0-16.0); BUN - UREA NITROGEN 32 mg/dL (7-25); CALCIUM SERUM 9.5 mg/dL (8.6-10.3); CARBON DIOXIDE 25.4 mEq/L (21.0-31.0); CHLORIDE 107 mEq/L (98-107); CREATININE - SERUM 0.9 mg/dL (0.7-1.3); GLUCOSE 91 mg/dL (70-105); POTASSIUM SERUM 3.7 mEq/L (3.5-5.1); SODIUM SERUM 140 mEq/L (136-145)
--- NOTE | 2017-09-10 08:10 | General Progress Note ---
Subjective - Review of Systems Service Date: 09/10/17 Subjective: Patient was seen and examined. chest congested. possible aspiration. Will hold feedings for now. swallow eval. change IVs to D5 1/2NS Objective - Results Result Diagrams: 09/10/17 05:40 09/10/17 05:40 Recent Labs: Laboratory Last Values WBC 9.5 Th/cmm (4.8-10.8) 09/10/17 05:40 RBC 4.05 Mil/cmm (3.80-5.80) 09/10/17 05:40 Hgb 11.9 gm/dL (12-16) L 09/10/17 05:40 Hct 36.0 % (41.0-60) L 09/10/17 05:40 MCV 88.8 fl (80-99) 09/10/17 05:40 MCH 29.4 pg (27.0-31.0) 09/10/17 05:40 MCHC Differential 33.1 pg (28.0-36.0) 09/10/17 05:40 RDW 14.1 % (11.5-20.0) 09/10/17 05:40 Plt Count 183 Th/cmm (150-400) 09/10/17 05:40 MPV 7.9 fl 09/10/17 05:40 Neutrophils % 68.3 % (40.0-80.0) 09/10/17 05:40 Lymphocytes % 16.7 % (20.0-50.0) L 09/10/17 05:40 Monocytes % 13.9 % (2.0-10.0) H 09/10/17 05:40 Eosinophils % 0.7 % (0.0-5.0) 09/10/17 05:40 Basophils % 0.4 % (0.0-2.0) 09/10/17 05:40 Sodium 140 mEq/L (136-145) 09/10/17 05:40 Potassium 3.7 mEq/L (3.5-5.1) 09/10/17 05:40 Chloride 107 mEq/L (98-107) 09/10/17 05:40 Carbon Dioxide 25.4 mEq/L (21.0-31.0) 09/10/17 05:40 Anion Gap 11.3 (7.0-16.0) 09/10/17 05:40 BUN 32 mg/dL (7-25) H 09/10/17 05:40 Creatinine 0.9 mg/dL (0.7-1.3) 09/10/17 05:40 Est GFR ( Amer) TNP 09/10/17 05:40 Est GFR (Non-Af Amer) TNP 09/10/17 05:40 BUN/Creatinine Ratio 35.6 09/10/17 05:40 Glucose 91 mg/dL (70-105) 09/10/17 05:40 POC Glucose 116 MG/DL (70 - 105) H 09/09/17 08:06 Calcium 9.5 mg/dL (8.6-10.3) 09/10/17 05:40 Troponin I 0.03 ng/mL (0.01-0.05) 09/09/17 10:15 B-Natriuretic Peptide 88.6 pg/mL (5.0-100.0) 09/10/17 05:40 - Physical Exam Vitals and I&O: Vital Signs Temp 97.6 F 09/10/17 04:00 Pulse 91 09/10/17 04:00 Resp 20 09/10/17 04:00 BP 147/61 09/10/17 04:00 Pulse Ox 100 09/10/17 04:00 Intake & Output 09/09/17 09/10/17 09/10/17 18:59 06:59 18:59 Intake Total 1150.000 Balance 1150.000 Weight (lbs) 70.307 kg Intake: Intake, IV Amount 1100.000 Levofloxacin 500mg/100mL 100 500 mg In 100 ml @ 100 mls/hr IV Q24HR ANG Rx#: [id number] Sodium Chloride 0.45% 1, 1000.000 000 ml @ 50 mls/hr IV . Q20H ANG Rx#:[id number] Oral 50 Other: # Voids 2 # Bowel Movements 0 Weight Source Bedscale Active Medications: Current Medications Acetaminophen (Tylenol) 650 mg PO Q4H PRN PRN Reason: Mild pain, temp above 100 Stop: 11/07/17 22:07 Al Hydrox/Mg Hydrox/Simethicone (Maalox) 30 ml PO Q4HR PRN PRN Reason: GI distress Stop: 11/07/17 22:12 Albuterol/Ipratropium (Duoneb Neb) 3 ml HHN Q4H PRN PRN Reason: Wheezing Stop: 11/07/17 19:41 Last Admin: 09/09/17 07:34 Dose: 3 ml Amlodipine Besylate (Norvasc) 5 mg PO DAILY ANG Stop: 11/08/17 08:59 Last Admin: 09/09/17 08:51 Dose: Not Given Ascorbic Acid (Vitamin C) 500 mg PO DAILY ANG Stop: 11/08/17 08:59 Last Admin: 09/09/17 08:52 Dose: 500 mg Donepezil HCl (Aricept) 10 mg PO HS ANG Stop: 11/08/17 20:59 Last Admin: 09/09/17 22:23 Dose: 10 mg Levofloxacin (Levaquin Pb) 250 mg in 50 mls @ 50 mls/hr IV Q24HR ANG Stop: 11/09/17 08:59 Dextrose/Sodium Chloride (D5-0.45ns) 1,000 mls @ 50 mls/hr IV .Q20H ANG Stop: 11/09/17 08:14 Latanoprost (Xalatan 0.005% Ophth Soln) 1 drop EACH EYE HS ANG Stop: 11/08/17 20:59 Last Admin: 09/10/17 00:22 Dose: Not Given Losartan Potassium (Cozaar) 50 mg PO DAILY ANG Stop: 11/08/17 08:59 Last Admin: 09/09/17 08:52 Dose: Not Given Magnesium Hydroxide (Milk Of Magnesia) 30 ml PO HS PRN PRN Reason: Constipation Stop: 11/07/17 22:20 Memantine (Namenda) 5 mg PO DAILY AGN Stop: 11/08/17 08:59 Last Admin: 09/09/17 08:53 Dose: 5 mg Multivitamins/Vitamin C (Theragran) 1 tab PO DAILY ANG Stop: 11/08/17 08:59 Last Admin: 09/09/17 08:53 Dose: 1 tab Olanzapine (Zyprexa) 5 mg PO HS ANG PRN Reason: Protocol Stop: 11/08/17 20:59 Last Admin: 09/09/17 22:23 Dose: 5 mg Olanzapine (Zyprexa) 2.5 mg PO DAILY ANG PRN Reason: Protocol Stop: 11/08/17 08:59 Last Admin: 09/09/17 08:54 Dose: 2.5 mg Tamsulosin HCl (Flomax) 0.4 mg PO HS ANG Stop: 11/08/17 20:59 Last Admin: 09/09/17 22:23 Dose: 0.4 mg Zolpidem Tartrate (Ambien) 5 mg PO HS PRN PRN Reason: Insomnia Stop: 11/07/17 22:26 General: Alert HEENT: Atraumatic, PERRLA, EOMI Cardiovascular: Regular rate, Normal S1, Normal S2 Lungs: Other (rhonchi) Abdomen: Bowel sounds, Soft Extremities: Edema, no Clubbing, no Cyanosis Neurological: Normal gait Skin: no Rash Assessment/Plan - Assessment Assessment: leukocytosis pneumonia htn bph glaucoma anemia dementia psychosis prerenal azotemia - Plan Plan: cbc cmp pulmonary consult id consult psyche consult levofloxacin 500mg IV daily gentle hydration
[2017-09-10] MEDS: Multivitamin Tab PO SCH (09:07)
[2017-09-10] MEDS: D5-0.45NS 1,000 ML IV SCH (09:14)
[2017-09-10] MEDS: Levofloxacin 250mg/50mL 250 MG/50 ML BAG IV SCH (09:16)
[2017-09-10 13:04] LABS: INR 1.17 (0.5-1.4); PROTHROMBIN TIME (TEST) 12.3 SECONDS (9.5-11.5)
[2017-09-10] MEDS: metroNIDAZOLE 500mg/NS 100mL 500 MG/100 ML BAG IV SCH ×2 (13:39→22:17)
[2017-09-10] MEDS: Albuterol/Ipratropium Neb 3 ML AERS HHN SCH ×2 (15:21→19:30)
--- NOTE | 2017-09-10 16:11 | Progress Notes ---
DATE: 09/10/2017 SUBJECTIVE: The patient is still getting treated for pneumonia. The patient has mittens, so he would not pull his IV. The patient is confused, demented. The patient continued to be unable to make safe plan for self-care or participate in a meaningful conversation. The patient has been compliant with the medication with no side effects, no sedation, no nausea, no extrapyramidal symptoms. The patient is already on Aricept and Namenda. Namenda was initiated yesterday. No side effects with the medication, no sedation, no nausea, no extrapyramidal symptoms. He is also on Zyprexa and the patient may need to go to [facility] if he is still acting out aggressive; however, he improved. He can go back to the Nursing Facility. Thank you very much for allowing me to participate in the care of this most interesting gentleman. [facility]# [id number]
--- NOTE | 2017-09-10 17:39 | Consultation ---
DATE OF CONSULTATION: 09/10/2017 INPATIENT GI CONSULTATION CONSULTING PHYSICIAN: Dr. Jarrell. REASON FOR CONSULTATION: Consideration of G-tube placement. HISTORY OF PRESENT ILLNESS: The patient is an 87-year-old male with past medical history significant for dementia, psychosis, behavioral problems and glaucoma, who was admitted to the medical floor from the [facility] for chest congestions and signs of pneumonia. Once transferred to the medical floor, the patient had a chest x-ray that showed evidence of bilateral pneumonia. He has been maintained on antibiotics thus far. The patient then was subjected to a swallow evaluation this morning, which he failed and there is a recommendation for nothing by mouth from the speech therapist. Given these findings and the possibility of aspiration pneumonia, GI is asked for consultation for possible G-tube placement. PAST MEDICAL HISTORY: Dementia, psychosis, hypertension, benign prostatic hypertrophy, glaucoma, and anemia. PAST SURGICAL HISTORY: Unknown. FAMILY HISTORY: Noncontributory. SOCIAL HISTORY: The patient lives at a nursing facility. There is no history of smoking, alcohol, or other drugs. ALLERGIES: No known drug allergies. REVIEW OF SYSTEMS: Not possible given that the patient is not able to interact with the interview today. CURRENT MEDICATIONS: Tylenol, Maalox, albuterol, amlodipine, vitamin C, Aricept, Levaquin, Cozaar, milk of magnesia, Namenda, Solu-Medrol, Flagyl, multivitamin, Zyprexa, Flomax, and Ambien. PHYSICAL EXAMINATION: VITAL SIGNS: Blood pressure 148/61, pulse 82 beats per minute, temperature 98.0, oxygenation 96%. GENERAL: The patient is lying in bed at 30 degrees. He is alert and oriented x 0. He does not appear to be in acute distress. HEAD, EARS, EYES, NOSE AND THROAT: Normocephalic and atraumatic appearing head. Pupils are equal and reactive. No scleral icterus is noticed. There are dry mucous membranes. NECK: Supple. No JVD or thyromegaly. CHEST: Reduced breath sounds at both bases with crackles as well. CARDIOVASCULAR: S1 and S2 are present. Regular rate and rhythm. ABDOMEN: Soft, nontender to palpation. No guarding. No rebound. No distention. EXTREMITIES: Thin, no pitting edema. Pulses are not present. SKIN: No obvious jaundice or cyanosis. LABORATORY DATA: White blood cell count 9.5, hemoglobin 11.9, platelet count is 183. Sodium 140, BUN 32, creatinine 0.9. BNP is 88. IMAGING: No abdominal imaging has been performed. IMPRESSION: This is an 87-year-old male with history of dementia and psychosis, who was transferred from the Geriatric Psych Unit to the medicine floor with pneumonia and failed swallow evaluation. 1. Pneumonia. 2. Dysphagia, having failed a swallow evaluation. 3. Dementia and psychosis. DISCUSSION: Given that the patient has failed a swallow evaluation and is also suffering pneumonia, it is certainly reasonable to consider G-tube insertion. The patient may have suffered an aspiration event which is responsible for his pneumonia at this time. I have discussed this matter with the patient's niece, who is the primary decision maker and she is leaning towards consenting for the procedure, although will let us know the final decision in a few hours. If there is consent for G-tube placement, then we will plan for this tomorrow morning. I did go over with the niece the risks and benefits of such a procedure, which included infection, bleeding, G-tube site related perforation and premature removal of the G-tube by the patient. I also notified her that this is not a permanent G-tube and may be removed at 6-week point if the patient regained swallowing function. The alternative would be an NG tube to see if he regained swallowing function in the next week or two weeks. RECOMMENDATIONS: 1. We will follow up the patient's niece decision and if she consents, we will plan for G-tube tomorrow morning. 2. We will get an INR value now and tomorrow morning. 3. NPO at midnight. 4. We will write the patient for 1 g of Ancef for 1 hour before the procedure. We will continue to follow. Thank you for allowing us to participate in this patient's care. Please call with any further questions. JOB# [id number]
[2017-09-10] MEDS: Budesonide 0.5 Mg/2 mL Ud HHN SCH (19:30)
--- NOTE | 2017-09-11 00:36 | Consultation ---
DATE OF CONSULTATION: 09/10/2017 PULMONARY CONSULTATION REASON FOR CONSULTATION: Help the patient with shortness of breath with abnormal chest x-ray. CONSULT NOTE: This is an 87-year-old patient of Dr. Jarrell and the patient basically lives in a convalescent home and has been brought in up here, ____ Geropsych with possibly pneumonia. Initially was admitted for psychosis. Unfortunately, this patient quite restless, agitated. Meaningful detailed history from the patient is not available to me at this particular time. PAST MEDICAL HISTORY: Alzheimer psychosis as well as a history of BPH, history of dementia, history of anemia, hypertension, and has history of prerenal azotemia. Unfortunately, meaningful detailed history from the patient is not available to me at this particular time except for reviewing the chart. SOCIAL HISTORY: Smoking history is not available to me at this particular time. PHYSICAL EXAMINATION: GENERAL: This is an elderly looking gentleman, quite agitated, not responding, not in any acute respiratory distress, etc. VITAL SIGNS: The patient's recorded temperature is 97.6, blood pressure 147/61, respiration rate 20, saturation 100% on room air. HEENT: Examination of the head is essentially unremarkable. Pupils appear to be equal and reacting to light. Conjunctivae are slightly pallor. Oral cavity shows edentulous. NECK: No nodes in the neck could be palpated. CHEST: Show diminished air entry with occasional rhonchi. HEART: Regular. ABDOMEN: Soft, nontender. EXTREMITIES: Shows some atrophic changes, otherwise unremarkable. LABORATORY DATA: The patient's white count is 9.5, hemoglobin 11.9 and electrolytes are okay with BUN 32 and BNP is 88. Chest x-ray showed basal interstitial infiltrate bilaterally and chemistries are otherwise unremarkable. IMPRESSION: Most likely this is aspiration with significant dementia, possibility of aspiration is slightly high. PLANS AND SUGGESTIONS: We will get a CT chest if the patient cooperates and also get a speech therapy, most likely would need to have a G-tube on this patient and go from there. We will follow through. JOB# [id number]
[2017-09-11] MEDS: D5-0.45NS 1,000 ML IV SCH (05:07)
[2017-09-11] MEDS: metroNIDAZOLE 500mg/NS 100mL 500 MG/100 ML BAG IV SCH ×2 (05:07→12:12)
[2017-09-11 06:22] LABS: HEMATOCRIT 34.8 % (41.0-60); HEMOGLOBIN 11.7 gm/dL (12-16); MEAN CELL VOLUME 87.8 fl (80-99); MEAN CORPUSCULAR HEMOGLOBIN 29.6 pg (27.0-31.0); MEAN CORPUSCULAR HGB CONC 33.7 pg (28.0-36.0); MEAN PLATELET VOLUME 7.7 fl; PLATELET COUNT 234 Th/cmm (150-400); RED BLOOD COUNT 3.96 Mil/cmm (3.80-5.80); RED CELL DISTRIBUTION WIDTH 13.7 % (11.5-20.0); WHITE BLOOD COUNT 7.2 Th/cmm (4.8-10.8)
[2017-09-11 06:27] LABS: MANUAL DIFF REQUIRED? YES
[2017-09-11 06:43] LABS: ALB/GLOB RATIO 1.1 (1.0-1.8); ALBUMIN 3.3 gm/dL (4.2-5.5); ALKALINE PHOSPHATASE 100 U/L (34-104); ANION GAP 10.5 (7.0-16.0); BILIRUBIN,TOTAL 0.7 mg/dL (0.3-1.0); BUN - UREA NITROGEN 37 mg/dL (7-25); CALCIUM SERUM 9.6 mg/dL (8.6-10.3); CARBON DIOXIDE 23.6 mEq/L (21.0-31.0); CHLORIDE 109 mEq/L (98-107); CREATININE - SERUM 0.9 mg/dL (0.7-1.3); GLUCOSE 160 mg/dL (70-105); POTASSIUM SERUM 4.1 mEq/L (3.5-5.1); SGOT 15 U/L (13-39); SGPT/ALT 16 U/L (7-52); SODIUM SERUM 139 mEq/L (136-145); TOTAL PROTEIN,SERUM 6.3 gm/dL (6.0-8.3)
[2017-09-11 06:59] LABS: INR 1.12 (0.5-1.4); PROTHROMBIN TIME (TEST) 11.7 SECONDS (9.5-11.5)
[2017-09-11 07:22] LABS: BAND NEUTROPHILE 2 % (0-10); LYMPHOCYTE 9 % (20-50); MONOCYTE 2 % (2-10); NEUTROPHILS 87 % (40-80); PLATELET ESTIMATE ADEQUATE (NORMAL); TOTAL CELLS COUNTED 100
[2017-09-11] MEDS: Budesonide 0.5 Mg/2 mL Ud HHN SCH ×2 (07:39→21:26)
[2017-09-11] MEDS: Albuterol/Ipratropium Neb 3 ML AERS HHN SCH ×4 (07:39→21:26)
--- NOTE | 2017-09-11 08:07 | General Progress Note ---
Subjective - Review of Systems Service Date: 09/11/17 Subjective: For Gtube placement today. Patient was seen and examined. NPO for now. Continue IV fluids. No acute distress. chest congestion improved. possible aspiration pneumonia. Objective - Results Result Diagrams: 09/11/17 05:58 09/11/17 05:58 Recent Labs: Laboratory Last Values WBC 7.2 Th/cmm (4.8-10.8) 09/11/17 05:58 RBC 3.96 Mil/cmm (3.80-5.80) 09/11/17 05:58 Hgb 11.7 gm/dL (12-16) L 09/11/17 05:58 Hct 34.8 % (41.0-60) L 09/11/17 05:58 MCV 87.8 fl (80-99) 09/11/17 05:58 MCH 29.6 pg (27.0-31.0) 09/11/17 05:58 MCHC Differential 33.7 pg (28.0-36.0) 09/11/17 05:58 RDW 13.7 % (11.5-20.0) 09/11/17 05:58 Plt Count 234 Th/cmm (150-400) 09/11/17 05:58 MPV 7.7 fl 09/11/17 05:58 Neutrophils % 68.3 % (40.0-80.0) 09/10/17 05:40 Band Neutrophils % 2 % (0-10) 09/11/17 05:58 Lymphocytes % 16.7 % (20.0-50.0) L 09/10/17 05:40 Monocytes % 13.9 % (2.0-10.0) H 09/10/17 05:40 Eosinophils % 0.7 % (0.0-5.0) 09/10/17 05:40 Basophils % 0.4 % (0.0-2.0) 09/10/17 05:40 Neutrophils (Manual) 87 % (40-80) H 09/11/17 05:58 Lymphocytes 9 % (20-50) L 09/11/17 05:58 Monocytes 2 % (2-10) 09/11/17 05:58 Platelet Estimate ADEQUATE (NORMAL) 09/11/17 05:58 PT 11.7 SECONDS (9.5-11.5) H 09/11/17 05:58 INR 1.12 (0.5-1.4) 09/11/17 05:58 Sodium 139 mEq/L (136-145) 09/11/17 05:58 Potassium 4.1 mEq/L (3.5-5.1) 09/11/17 05:58 Chloride 109 mEq/L (98-107) H 09/11/17 05:58 Carbon Dioxide 23.6 mEq/L (21.0-31.0) 09/11/17 05:58 Anion Gap 10.5 (7.0-16.0) 09/11/17 05:58 BUN 37 mg/dL (7-25) H 09/11/17 05:58 Creatinine 0.9 mg/dL (0.7-1.3) 09/11/17 05:58 Est GFR ( Amer) TNP 09/11/17 05:58 Est GFR (Non-Af Amer) TNP 09/11/17 05:58 BUN/Creatinine Ratio 41.1 09/11/17 05:58 Glucose 160 mg/dL (70-105) H 09/11/17 05:58 POC Glucose 116 MG/DL (70 - 105) H 09/09/17 08:06 Calcium 9.6 mg/dL (8.6-10.3) 09/11/17 05:58 Total Bilirubin 0.7 mg/dL (0.3-1.0) 09/11/17 05:58 AST 15 U/L (13-39) 09/11/17 05:58 ALT 16 U/L (7-52) 09/11/17 05:58 Alkaline Phosphatase 100 U/L (34-104) 09/11/17 05:58 Troponin I 0.03 ng/mL (0.01-0.05) 09/09/17 10:15 B-Natriuretic Peptide 88.6 pg/mL (5.0-100.0) 09/10/17 05:40 Total Protein 6.3 gm/dL (6.0-8.3) 09/11/17 05:58 Albumin 3.3 gm/dL (4.2-5.5) L 09/11/17 05:58 Globulin 3.0 gm/dL 09/11/17 05:58 Albumin/Globulin Ratio 1.1 (1.0-1.8) 09/11/17 05:58 - Physical Exam Vitals and I&O: Vital Signs Temp 97.3 F 09/11/17 04:00 Pulse 80 09/11/17 07:51 Resp 18 09/11/17 07:51 BP 146/60 09/11/17 04:00 Pulse Ox 97 09/11/17 07:51 Intake & Output 09/10/17 09/11/17 09/11/17 18:59 06:59 18:59 Intake Total 300 1094.167 Balance 300 1094.167 Weight (lbs) 70.307 kg 70.307 kg Intake: Intake, IV Amount 100 1094.167 D5-0.45NS 1,000 ml @ 50 994.167 mls/hr IV .Q20H [facility] Rx#: [id number] metroNIDAZOLE 500mg/NS 100 100 100mL 500 mg In 100 ml @ 100 mls/hr IV Q8HR [facility] Rx #:[id number] Oral 200 Other: # Voids 3 2 # Bowel Movements 1 Weight Source Bedscale Bedscale Active Medications: Current Medications Acetaminophen (Tylenol) 650 mg PO Q4H PRN PRN Reason: Mild pain, temp above 100 Stop: 11/07/17 22:07 Al Hydrox/Mg Hydrox/Simethicone (Maalox) 30 ml PO Q4HR PRN PRN Reason: GI distress Stop: 11/07/17 22:12 Albuterol/Ipratropium (Duoneb Neb) 3 ml HHN Q4H PRN PRN Reason: Wheezing Stop: 11/07/17 19:41 Last Admin: 09/09/17 07:34 Dose: 3 ml Albuterol/Ipratropium (Duoneb Neb) 3 ml HHN [id number] [facility] Stop: 11/09/17 14:59 Last Admin: 09/11/17 07:39 Dose: 3 ml Amlodipine Besylate (Norvasc) 5 mg PO DAILY [facility] Stop: 11/08/17 08:59 Last Admin: 09/10/17 09:07 Dose: 5 mg Ascorbic Acid (Vitamin C) 500 mg PO DAILY [facility] Stop: 11/08/17 08:59 Last Admin: 09/10/17 09:06 Dose: 500 mg Budesonide (Pulmicort) 0.5 mg HHN BIDRT [facility] Stop: 11/09/17 18:59 Last Admin: 09/11/17 07:39 Dose: 0.5 mg Donepezil HCl (Aricept) 10 mg PO HS ANG Stop: 11/08/17 20:59 Last Admin: 09/10/17 22:13 Dose: 10 mg Levofloxacin (Levaquin Pb) 250 mg in 50 mls @ 50 mls/hr IV Q24HR [facility] Stop: 11/09/17 08:59 Last Admin: 09/10/17 09:16 Dose: 50 mls/hr Dextrose/Sodium Chloride (D5-0.45ns) 1,000 mls @ 50 mls/hr IV .Q20H [facility] Stop: 11/09/17 08:14 Last Admin: 09/11/17 05:07 Dose: 50 mls/hr Metronidazole (Flagyl) 500 mg in 100 mls @ 100 mls/hr IV Q8HR [facility] Stop: 11/09/17 12:59 Last Admin: 09/11/17 05:07 Dose: 100 mls/hr Cefazolin Sodium 1 gm/ (Dextrose) 50 mls @ 100 mls/hr IV X1 ONE Stop: 09/11/17 09:59 Latanoprost (Xalatan 0.005% Ophth Soln) 1 drop EACH EYE HS [facility] Stop: 11/08/17 20:59 Last Admin: 09/10/17 22:17 Dose: 1 drop Losartan Potassium (Cozaar) 50 mg PO DAILY [facility] Stop: 11/08/17 08:59 Last Admin: 09/10/17 09:06 Dose: 50 mg Magnesium Hydroxide (Milk Of Magnesia) 30 ml PO HS PRN PRN Reason: Constipation Stop: 11/07/17 22:20 Memantine (Namenda) 5 mg PO DAILY [facility] Stop: 11/08/17 08:59 Last Admin: 09/10/17 09:07 Dose: 5 mg Methylprednisolone Sodium Succinate (Solu-Medrol) 80 mg IVP Q12HR [facility] Stop: 11/09/17 08:59 Last Admin: 09/10/17 22:17 Dose: 80 mg Multivitamins/Vitamin C (Theragran) 1 tab PO DAILY [facility] Stop: 11/08/17 08:59 Last Admin: 09/10/17 09:07 Dose: 1 tab Olanzapine (Zyprexa) 5 mg PO HS ANG PRN Reason: Protocol Stop: 11/08/17 20:59 Last Admin: 09/10/17 22:13 Dose: 5 mg Olanzapine (Zyprexa) 2.5 mg PO DAILY ANG PRN Reason: Protocol Stop: 11/08/17 08:59 Last Admin: 09/10/17 09:11 Dose: 2.5 mg Tamsulosin HCl (Flomax) 0.4 mg PO HS ANG Stop: 11/08/17 20:59 Last Admin: 09/10/17 22:13 Dose: 0.4 mg Zolpidem Tartrate (Ambien) 5 mg PO HS PRN PRN Reason: Insomnia Stop: 11/07/17 22:26 General: Alert HEENT: Atraumatic, PERRLA, EOMI Cardiovascular: Regular rate, Normal S1, Normal S2 Lungs: Other (rhonchi) Abdomen: Bowel sounds, Soft Extremities: Edema, no Clubbing, no Cyanosis Neurological: Normal gait Skin: no Rash Assessment/Plan - Assessment Assessment: leukocytosis pneumonia vs aspiration PNA htn bph glaucoma anemia dementia psychosis prerenal azotemia - Plan Plan: cbc cmp pulmonary consult id consult psyche consult levofloxacin 500mg IV daily Flagyl 500mg IV q8 gentle hydration for gtube placement. Nutritional Asmnt/Malnutr-PDOC - Dietary Evaluation Malnutrition Findings (Please click <Entered> for more info): Nutritional Asmnt/Malnutrition Start: 09/10/17 18: 01 Text: Status: Complete Freq: Document 09/10/17 18:01 GUZMAN (Rec: 09/10/17 18:12 [email or web address] Nutritional Asmnt/Malnutrition Patient General Information Nutritional Screening High Risk Diagnosis PNA Pertinent Medical Hx/Surgical Hx PNA Subjective Information Pt seen sleeping at time of visit. Per nurse, pt failed swallow eval this morning. ST recommended strict NPO. MD may order PEG placement tommorrow . Current Diet Order/ Nutrition Support NPO Pertinent Medications vit C, D5-0.45ns, levaquin, theragran Pertinent Labs 09/10 BUN 32 Nutritional Hx/Data Height 1.73 m Height (Calculated Centimeters) 172.7 Current Weight (lbs) 70.307 kg Weight (Calculated Kilograms) 70.3 Weight (Calculated Grams) 44355.8 [place] Body Weight 154 Body Mass Index (BMI) 23.6 Weight Status Approriate GI Symptoms GI Symptoms None Last BM 09/08 Difficult in: Swallowing Skin Integrity/Comment: reddened to lower back scabs on both feet Estimated Nutritional Goals BEE in Kcals: Using Current wt Calories/Kcals/Kg 23-27 Kcals Calculated 4491-0635 Protein: Using Current wt Protein g/k-1.2 Protein Calculated 63-74 Fluid: ml 1610-1890ml (1ml/kcal) Nutritional Problem 1. Problem Problem inadequate energy intake Etiology pt failed swallow eval Signs/Symptoms: pt on NPO and need alternative nutrition route Intervention/Recommendation Comments 1. Monitor NPO status. 2. If TF needed, recommend initiating Fibersource HN at 20ml/hr for first 24hr, increase 10ml/hr q12hr to goal rate of 55ml/hr continuous. It provides 1584kcal, 71g protein, 1069ml free water, meeting 100% of nutritional needs. 3. Monitor TF rate, tolerance, wt weekly, skin integrity and labs 4. F/U as high risk in 2-3 days, 09/12-09/13 Expected Outcomes/Goals Expected Outcomes/Goals 1. Pt to meet at least 75% of nutritional needs via nutrition support with tolerance 2. Wt stability, skin to remain intact, labs to approach WNL.
[2017-09-11 08:33] LABS: pH 7.45 (7.35-7.45)
[2017-09-11 08:34] LABS: ALLEN TEST POSITIVE
--- NOTE | 2017-09-11 08:42 | Diagnostic Imaging Report ---
CT Chest without IV contrast HISTORY: Pneumonia COMPARISON: Chest x-ray on 09/09/2017. Technique: Axial images were obtained from the base of the neck to the upper abdomen without IV contrast. Reconstructions were made. Total DLP to 36, CTD I 5.9 Findings: Evaluation of the mediastinum is limited due to lack of IV contrast. A few borderline prominent mediastinal nodes are seen the largest along the left upper mediastinum measuring 0.9 x 0.9 cm. No evidence of an aortic aneurysm. Diffuse atherosclerosis is noted with coronary artery calcifications. Trace pericardial fluid is noted. The heart size is normal. There are diffuse emphysematous changes throughout the lungs most pronounced within the lung bases with areas of interstitial lung disease and and bibasal infiltrates, left greater than right. Left apical 2.9 x 1.4 cm irregular opacity is seen abutting the pleura. Right apical 5 mm nodular opacity is also seen abutting the pleura. No pleural effusions. The Upper abdomen demonstrates evidence of prior cholecystectomy. Left renal cysts are noted. Degenerative changes of the spine are noted with multilevel Schmorl's node formation. There is also mild chronic compression deformity of T12. There is a 1.2 cm sclerotic density along the T12 vertebral body on the left side. IMPRESSION: Diffuse emphysematous changes of the lungs with chronic interstitial lung changes greatest along the bibasal regions with superimposed bibasal infiltrates, left greater than right. Clinical correlation is recommended. 2.9 x 1.4 cm left apical irregular opacity and additional right apical 0.5cm opacity abutting the pleura. Findings favor areas of scarring and probable passive atelectasis. Please correlate with old exams, if available. Neoplastic etiology is less likely, however, short-term follow-up surveillance CT in one 1 to 2 months is recommended. Atherosclerotic vascular disease. Few borderline prominent mediastinal lymph nodes, nonspecific. 1.2 cm a sclerotic density of the T12 vertebral body on the left side, nonspecific. This may represent an incidental bone island. Other etiologies such as metastatic disease would be considered less likely. Correlation with old exams be helpful for comparison. If necessary, follow-up exam such as nuclear medicine bone scan may be obtained Evidence of prior cholecystectomy. Left renal cysts.
[2017-09-11] MEDS: Levofloxacin 250mg/50mL 250 MG/50 ML BAG IV SCH (09:02)
[2017-09-11] MEDS: Multivitamin Tab PO SCH (09:04)
--- NOTE | 2017-09-11 11:26 | Operative Report ---
DATE OF SURGERY: 09/11/2017 INPATIENT EGD AND G-TUBE PLACEMENT PROCEDURE PERFORMED: EGD with biopsy and EGD with PEG placement. ENDOSCOPIST: Rodrigo Heart M.D. PREOPERATIVE DIAGNOSES: 1. Dysphagia, failed swallow evaluation. 2. Pneumonia. POSTOPERATIVE DIAGNOSES: 1. Gastritis. 2. Hiatal hernia. 3. Esophageal diverticulum. 4. Successful G-tube placement. INDICATIONS: The patient is an 87-year-old male with history of dementia, who was transferred from [facility] yesterday because of bilateral pneumonia. He has failed the swallow evaluation and has not been taking in good nutrition and likely has aspirated causing pneumonia. Thus, GI is asked for a G-tube placement. CONSENT: Informed consent was obtained from the patient's niece, who is the healthcare proxy. The risks and benefits of this procedure were discussed and included but not limited to infection, bleeding, perforation, need for surgery, cardiopulmonary complications, missed pathology, G-tube site infection, G-tube site related perforation, premature G-tube site removal, bowel perforation related G-tube site insertion, and . The patient's niece indicated understanding of these risks and wished to go forward with the procedure and signed the consent form. ANESTHESIA: The procedure was performed in the main operating room under the care of the general anesthesiologist. PROCEDURE IN DETAIL: The patient was fitted to the appropriate monitoring devices and kept in the supine position. After initiation of general anesthesia, a gastroscope was introduced into the mouth and guided under direct visualization into the esophagus, stomach, and duodenum. The GE junction was located at 37 cm from the incisors. There appeared to be a 2 cm hiatal hernia in this area. Additionally, proximal to the Z-line, there was a small diverticulum although the diverticulum was investigated and not appear to have any perforation. The examined portions of the stomach appeared without mass lesion or ulcer, although there was some gastritis in the antral area and a LALY test was performed with excisional biopsy to see. The duodenum appeared normal endoscopically and the bulb and second portion. Next, an appropriate position for the G-tube was found in the lesser curve of the stomach proximal to the angularis. This was confirmed by transillumination and single poke method from the outside skin. Next, a 22-gauge needle was used to administer subcutaneous lidocaine in this area. This needle was then used to inject the stomach and it to directly enter into the stomach with ease from the endoscopic side. After this, a small incision was made on the skin and a trocar was placed through the incision and was seen to freely enter the stomach from the endoscopic side with ease without resistance. The trocar was then secured in place by the snare device and the needle was removed. The guidewire was inserted through the trocar and secured with the snare and the scope and guidewire were pulled out through the mouth. Next, a 20-Polish G-tube was affixed to the wire securely and lubricated. Next, using pull technique, the guidewire and G-tube were pulled back down through the mouth and through the esophagus and stomach to the abdominal wall. At this point, antibiotic ointment was applied to the skin site and the external bumper was put into place. The scope was then reintroduced into the stomach and confirmed the correct location of the internal bumper at the abdominal wall, but freely rotated. At this point, the procedure was complete. RECOMMENDATIONS: 1. The G-tube can be used immediately for medications and water flushes. 2. Can start tube feedings at 8 hours at 10 mL an hour and increase by 10 mL per hour until the goal rate is reached. 3. Check residuals every 6 hours and hold for residuals greater than [address] an abdominal binder. 5. We will follow up LALY test and treat H. pylori if found. Thank you for allowing me to participate in the patient's care. Please call with any further questions. JOB# [id number]
--- NOTE | 2017-09-11 14:01 | Infectious Disease Prog Note ---
Infectious Disease Subjective - Review of Systems Service Date: 09/11/17 Subjective: No change, no fever. Infectious Disease Objective - Results Result Diagrams: 09/11/17 05:58 09/11/17 05:58 Recent Labs: Laboratory Last Values WBC 7.2 Th/cmm (4.8-10.8) 09/11/17 05:58 RBC 3.96 Mil/cmm (3.80-5.80) 09/11/17 05:58 Hgb 11.7 gm/dL (12-16) L 09/11/17 05:58 Hct 34.8 % (41.0-60) L 09/11/17 05:58 MCV 87.8 fl (80-99) 09/11/17 05:58 MCH 29.6 pg (27.0-31.0) 09/11/17 05:58 MCHC Differential 33.7 pg (28.0-36.0) 09/11/17 05:58 RDW 13.7 % (11.5-20.0) 09/11/17 05:58 Plt Count 234 Th/cmm (150-400) 09/11/17 05:58 MPV 7.7 fl 09/11/17 05:58 Neutrophils % 68.3 % (40.0-80.0) 09/10/17 05:40 Band Neutrophils % 2 % (0-10) 09/11/17 05:58 Lymphocytes % 16.7 % (20.0-50.0) L 09/10/17 05:40 Monocytes % 13.9 % (2.0-10.0) H 09/10/17 05:40 Eosinophils % 0.7 % (0.0-5.0) 09/10/17 05:40 Basophils % 0.4 % (0.0-2.0) 09/10/17 05:40 Neutrophils (Manual) 87 % (40-80) H 09/11/17 05:58 Lymphocytes 9 % (20-50) L 09/11/17 05:58 Monocytes 2 % (2-10) 09/11/17 05:58 Platelet Estimate ADEQUATE (NORMAL) 09/11/17 05:58 PT 11.7 SECONDS (9.5-11.5) H 09/11/17 05:58 INR 1.12 (0.5-1.4) 09/11/17 05:58 Specimen Source Arterial 09/11/17 08:20 Sample Site RB 09/11/17 08:20 pH 7.45 (7.35-7.45) 09/11/17 08:20 pCO2 35.0 mmHg (35.0-45.0) 09/11/17 08:20 pO2 66.0 mmHg (80.0-100.0) L 09/11/17 08:20 HCO3 25.3 mEq/L (20.0-26.0) 09/11/17 08:20 Base Excess 0.6 mEq/L (-3.0-3.0) 09/11/17 08:20 O2 Saturation 94.0 % (92.0-100.0) 09/11/17 08:20 Franki Test POSITIVE 09/11/17 08:20 Vent Rate NA 09/11/17 08:20 Inspired O2 21 09/11/17 08:20 Tidal Volume NA 09/11/17 08:20 PEEP NA 09/11/17 08:20 Pressure (ins/psv/peep) NA 09/11/17 08:20 Critical Value SANDEEP CAMPOS 09/11/17 08:20 Sodium 139 mEq/L (136-145) 09/11/17 05:58 Potassium 4.1 mEq/L (3.5-5.1) 09/11/17 05:58 Chloride 109 mEq/L (98-107) H 09/11/17 05:58 Carbon Dioxide 23.6 mEq/L (21.0-31.0) 09/11/17 05:58 Anion Gap 10.5 (7.0-16.0) 09/11/17 05:58 BUN 37 mg/dL (7-25) H 09/11/17 05:58 Creatinine 0.9 mg/dL (0.7-1.3) 09/11/17 05:58 Est GFR ( Amer) TNP 09/11/17 05:58 Est GFR (Non-Af Amer) TNP 09/11/17 05:58 BUN/Creatinine Ratio 41.1 09/11/17 05:58 Glucose 160 mg/dL (70-105) H 09/11/17 05:58 POC Glucose 116 MG/DL (70 - 105) H 09/09/17 08:06 Calcium 9.6 mg/dL (8.6-10.3) 09/11/17 05:58 Total Bilirubin 0.7 mg/dL (0.3-1.0) 09/11/17 05:58 AST 15 U/L (13-39) 09/11/17 05:58 ALT 16 U/L (7-52) 09/11/17 05:58 Alkaline Phosphatase 100 U/L (34-104) 09/11/17 05:58 Troponin I 0.03 ng/mL (0.01-0.05) 09/09/17 10:15 B-Natriuretic Peptide 88.6 pg/mL (5.0-100.0) 09/10/17 05:40 Total Protein 6.3 gm/dL (6.0-8.3) 09/11/17 05:58 Albumin 3.3 gm/dL (4.2-5.5) L 09/11/17 05:58 Globulin 3.0 gm/dL 09/11/17 05:58 Albumin/Globulin Ratio 1.1 (1.0-1.8) 09/11/17 05:58 TSH 0.53 uIU/ml (0.34-5.60) 09/11/17 05:58 - Physical Exam Vitals and I&O: Vital Signs Temp 97.3 F 09/11/17 04:00 Pulse 75 09/11/17 10:57 Resp 18 09/11/17 10:57 BP 100/52 09/11/17 09:03 Pulse Ox 95 09/11/17 10:57 Intake & Output 09/10/17 09/11/17 09/11/17 18:59 06:59 18:59 Intake Total 300 1194.167 Balance 300 1194.167 Weight (lbs) 70.307 kg 70.307 kg Intake: Intake, IV Amount 100 1194.167 D5-0.45NS 1,000 ml @ 50 994.167 mls/hr IV .Q20H [facility] Rx#: [id number] metroNIDAZOLE 500mg/NS 100 200 100mL 500 mg In 100 ml @ 100 mls/hr IV Q8HR [facility] Rx #:[id number] Oral 200 Other: # Voids 3 2 # Bowel Movements 1 Weight Source Bedscale Bedscale Active Medications: Current Medications Acetaminophen (Tylenol) 650 mg PO Q4H PRN PRN Reason: Mild pain, temp above 100 Stop: 11/07/17 22:07 Al Hydrox/Mg Hydrox/Simethicone (Maalox) 30 ml PO Q4HR PRN PRN Reason: GI distress Stop: 11/07/17 22:12 Albuterol/Ipratropium (Duoneb Neb) 3 ml HHN Q4H PRN PRN Reason: Wheezing Stop: 11/07/17 19:41 Last Admin: 09/09/17 07:34 Dose: 3 ml Albuterol/Ipratropium (Duoneb Neb) 3 ml HHN [id number] [facility] Stop: 11/09/17 14:59 Last Admin: 09/11/17 10:55 Dose: 3 ml Amlodipine Besylate (Norvasc) 5 mg PO DAILY [facility] Stop: 11/08/17 08:59 Last Admin: 09/11/17 09:01 Dose: Not Given Ascorbic Acid (Vitamin C) 500 mg PO DAILY [facility] Stop: 11/08/17 08:59 Last Admin: 09/11/17 10:49 Dose: Not Given Budesonide (Pulmicort) 0.5 mg HHN BIDRT [facility] Stop: 11/09/17 18:59 Last Admin: 09/11/17 07:39 Dose: 0.5 mg Donepezil HCl (Aricept) 10 mg PO HS [facility] Stop: 11/08/17 20:59 Last Admin: 09/10/17 22:13 Dose: 10 mg Levofloxacin (Levaquin Pb) 250 mg in 50 mls @ 50 mls/hr IV Q24HR [facility] Stop: 11/09/17 08:59 Last Admin: 09/11/17 09:02 Dose: Not Given Dextrose/Sodium Chloride (D5-0.45ns) 1,000 mls @ 50 mls/hr IV .Q20H [facility] Stop: 11/09/17 08:14 Last Admin: 09/11/17 05:07 Dose: 50 mls/hr Metronidazole (Flagyl) 500 mg in 100 mls @ 100 mls/hr IV Q8HR [facility] Stop: 11/09/17 12:59 Last Admin: 09/11/17 12:12 Dose: 100 mls/hr Latanoprost (Xalatan 0.005% Oph Soln) 1 drop EACH EYE [facility] Stop: 11/08/17 20:59 Last Admin: 09/10/17 22:17 Dose: 1 drop Losartan Potassium (Cozaar) 50 mg PO DAILY [facility] Stop: 11/08/17 08:59 Last Admin: 09/11/17 09:03 Dose: Not Given Magnesium Hydroxide (Milk Of Magnesia) 30 ml PO HS PRN PRN Reason: Constipation Stop: 11/07/17 22:20 Memantine (Namenda) 5 mg PO DAILY [facility] Stop: 11/08/17 08:59 Last Admin: 09/11/17 09:04 Dose: Not Given Methylprednisolone Sodium Succinate (Solu-Medrol) 80 mg IVP Q12HR [facility] Stop: 11/09/17 08:59 Last Admin: 09/11/17 10:48 Dose: 80 mg Multivitamins/Vitamin C (Theragran) 1 tab PO DAILY [facility] Stop: 11/08/17 08:59 Last Admin: 09/11/17 09:04 Dose: Not Given Olanzapine (Zyprexa) 5 mg PO HS [facility]G PRN Reason: Protocol Stop: 11/08/17 20:59 Last Admin: 09/10/17 22:13 Dose: 5 mg Olanzapine (Zyprexa) 2.5 mg PO DAILY [facility] PRN Reason: Protocol Stop: 11/08/17 08:59 Last Admin: 09/11/17 09:05 Dose: Not Given Tamsulosin HCl (Flomax) 0.4 mg PO HS [facility] Stop: 11/08/17 20:59 Last Admin: 09/10/17 22:13 Dose: 0.4 mg Zolpidem Tartrate (Ambien) 5 mg PO HS PRN PRN Reason: Insomnia Stop: 11/07/17 22:26 General: no acute distress, well developed, well nourished HEENT: atraumatic, normocephalic, PERRLA Neck: supple, no thyromegaly Cardiovascular: S1S2, regular Lungs: clear to auscultation bilaterally, rhonchi, no clear to percussion Abdomen: soft, bowel sounds, no tender, no distended, no mass, no hepatomegaly, no splenomegaly Extremities: no cyanosis, no clubbing, no edema Neurological: other (confused) Skin: intact Infectious Disease Assmt/Plan - Assessment Assessment: 1. Pneumonia. 2. Dementia. 3. Psychosis. 4. Anemia. 5. Benign prostatic hypertrophy. 6. Hypertension. 7. Glaucoma. 8. Prerenal azotemia. - Plan Plan: Continue Levaquin. Nutritional Asmnt/Malnutr-PDOC - Dietary Evaluation Malnutrition Findings (Please click <Entered> for more info): Nutritional Asmnt/Malnutrition Start: 09/10/17 18: 01 Text: Status: Complete Freq: Document 09/10/17 18:01 JELLY (Rec: 09/10/17 18:12 [email or web address]) Nutritional Asmnt/Malnutrition Patient General Information Nutritional Screening High Risk Diagnosis PNA Pertinent Medical Hx/Surgical Hx PNA Subjective Information Pt seen sleeping at time of visit. Per nurse, pt failed swallow eval this morning. ST recommended strict NPO. MD may order PEG placement tommorrow . Current Diet Order/ Nutrition Support NPO Pertinent Medications vit C, D5-0.45ns, levaquin, theragran Pertinent Labs 09/10 BUN 32 Nutritional Hx/Data Height 1.73 m Height (Calculated Centimeters) 172.7 Current Weight (lbs) 70.307 kg Weight (Calculated Kilograms) 70.3 Weight (Calculated Grams) 51478.8 [place] Body Weight 154 Body Mass Index (BMI) 23.6 Weight Status Approriate GI Symptoms GI Symptoms None Last BM 09/08 Difficult in: Swallowing Skin Integrity/Comment: reddened to lower back scabs on both feet Estimated Nutritional Goals BEE in Kcals: Using Current wt Calories/Kcals/Kg 23-27 Kcals Calculated 5017-9434 Protein: Using Current wt Protein g/k-1.2 Protein Calculated 63-74 Fluid: ml 1610-1890ml (1ml/kcal) Nutritional Problem 1. Problem Problem inadequate energy intake Etiology pt failed swallow eval Signs/Symptoms: pt on NPO and need alternative nutrition route Intervention/Recommendation Comments 1. Monitor NPO status. 2. If TF needed, recommend initiating Fibersource HN at 20ml/hr for first 24hr, increase 10ml/hr q12hr to goal rate of 55ml/hr continuous. It provides 1584kcal, 71g protein, 1069ml free water, meeting 100% of nutritional needs. 3. Monitor TF rate, tolerance, wt weekly, skin integrity and labs 4. F/U as high risk in 2-3 days, 09/12-09/13 Expected Outcomes/Goals Expected Outcomes/Goals 1. Pt to meet at least 75% of nutritional needs via nutrition support with tolerance 2. Wt stability, skin to remain intact, labs to approach WNL.
--- NOTE | 2017-09-11 23:11 | Progress Notes ---
DATE: 09/11/2017 SUBJECTIVE: Case was discussed with staff of the patient and reviewed records. The patient is suffering with pneumonia. The staff today when I tried to talk to him were trying to get a sputum sample from him. He has been staying in bed all the time, which is typically his behavior when he was in the long term. He is unable to communicate. He is unable to take care of himself or make safe plan for self-care. He has not been acting agitated in any way for now. The patient is suffering with pneumonia. He is now n.p.o. with IV fluid with no acute distress. Dr. Jarrell believes he may have aspiration pneumonia and no side effects of the medications. No extrapyramidal symptoms. Thank you very much for allowing me to participate in the care of this most interesting gentleman. JOB# [id number]
[2017-09-12] MEDS: metroNIDAZOLE 500mg/NS 100mL 500 MG/100 ML BAG IV SCH ×4 (00:37→21:26)
--- NOTE | 2017-09-12 00:58 | Progress Notes ---
DATE: 09/11/2017 PROBLEM LIST: 1. Altered state of mind, possibly aspiration. 2. Underlying Alzheimer's. SYMPTOMS: Nil. The patient has a G-tube, still periodically restless, distress, on and off agitated, otherwise unremarkable. PHYSICAL EXAMINATION: VITAL SIGNS: T-max 97.5, blood pressure 126/59, saturation 99 on room air. NECK: Veins not visualized. CHEST: Shows diminished air entry with occasional rhonchi. HEART: Regular. ABDOMEN: Shows a G-tube, otherwise unremarkable. LABORATORY DATA: The patient's white count is 7.2, hemoglobin 11.7. ABG is pO2 is 66. 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 ASSESSMENT: The patient is clinically stable. PLANS AND SUGGESTIONS: Continue current treatment. Hopefully, we can discharge with a G-tube, antibiotic and followup chest x-ray as an outpatient and go from there. JOB# [id number]
[2017-09-12] MEDS: Albuterol/Ipratropium Neb 3 ML AERS HHN SCH ×4 (07:20→19:23)
[2017-09-12] MEDS: Budesonide 0.5 Mg/2 mL Ud HHN SCH ×2 (07:20→19:23)
--- NOTE | 2017-09-12 07:57 | General Progress Note ---
Subjective - Review of Systems Service Date: 09/12/17 Subjective: s/p G-tube placement today. Patient was seen and examined. doing much better today. on g-tube feding per dietary .Continue IV fluids. No acute distress. chest congestion improved. possible aspiration pneumonia. Objective - Results Result Diagrams: 09/11/17 05:58 09/11/17 05:58 Recent Labs: Laboratory Last Values WBC 7.2 Th/cmm (4.8-10.8) 09/11/17 05:58 RBC 3.96 Mil/cmm (3.80-5.80) 09/11/17 05:58 Hgb 11.7 gm/dL (12-16) L 09/11/17 05:58 Hct 34.8 % (41.0-60) L 09/11/17 05:58 MCV 87.8 fl (80-99) 09/11/17 05:58 MCH 29.6 pg (27.0-31.0) 09/11/17 05:58 MCHC Differential 33.7 pg (28.0-36.0) 09/11/17 05:58 RDW 13.7 % (11.5-20.0) 09/11/17 05:58 Plt Count 234 Th/cmm (150-400) 09/11/17 05:58 MPV 7.7 fl 09/11/17 05:58 Neutrophils % 68.3 % (40.0-80.0) 09/10/17 05:40 Band Neutrophils % 2 % (0-10) 09/11/17 05:58 Lymphocytes % 16.7 % (20.0-50.0) L 09/10/17 05:40 Monocytes % 13.9 % (2.0-10.0) H 09/10/17 05:40 Eosinophils % 0.7 % (0.0-5.0) 09/10/17 05:40 Basophils % 0.4 % (0.0-2.0) 09/10/17 05:40 Neutrophils (Manual) 87 % (40-80) H 09/11/17 05:58 Lymphocytes 9 % (20-50) L 09/11/17 05:58 Monocytes 2 % (2-10) 09/11/17 05:58 Platelet Estimate ADEQUATE (NORMAL) 09/11/17 05:58 PT 11.7 SECONDS (9.5-11.5) H 09/11/17 05:58 INR 1.12 (0.5-1.4) 09/11/17 05:58 Specimen Source Arterial 09/11/17 08:20 Sample Site RB 09/11/17 08:20 pH 7.45 (7.35-7.45) 09/11/17 08:20 pCO2 35.0 mmHg (35.0-45.0) 09/11/17 08:20 pO2 66.0 mmHg (80.0-100.0) L 09/11/17 08:20 HCO3 25.3 mEq/L (20.0-26.0) 09/11/17 08:20 Base Excess 0.6 mEq/L (-3.0-3.0) 09/11/17 08:20 O2 Saturation 94.0 % (92.0-100.0) 09/11/17 08:20 Franki Test POSITIVE 09/11/17 08:20 Vent Rate NA 09/11/17 08:20 Inspired O2 21 09/11/17 08:20 Tidal Volume NA 09/11/17 08:20 PEEP NA 09/11/17 08:20 Pressure (ins/psv/peep) NA 09/11/17 08:20 Critical Value SANDEEP BETH 09/11/17 08:20 Sodium 139 mEq/L (136-145) 09/11/17 05:58 Potassium 4.1 mEq/L (3.5-5.1) 09/11/17 05:58 Chloride 109 mEq/L (98-107) H 09/11/17 05:58 Carbon Dioxide 23.6 mEq/L (21.0-31.0) 09/11/17 05:58 Anion Gap 10.5 (7.0-16.0) 09/11/17 05:58 BUN 37 mg/dL (7-25) H 09/11/17 05:58 Creatinine 0.9 mg/dL (0.7-1.3) 09/11/17 05:58 Est GFR ( Amer) TNP 09/11/17 05:58 Est GFR (Non-Af Amer) TNP 09/11/17 05:58 BUN/Creatinine Ratio 41.1 09/11/17 05:58 Glucose 160 mg/dL (70-105) H 09/11/17 05:58 POC Glucose 116 MG/DL (70 - 105) H 09/09/17 08:06 Calcium 9.6 mg/dL (8.6-10.3) 09/11/17 05:58 Total Bilirubin 0.7 mg/dL (0.3-1.0) 09/11/17 05:58 AST 15 U/L (13-39) 09/11/17 05:58 ALT 16 U/L (7-52) 09/11/17 05:58 Alkaline Phosphatase 100 U/L (34-104) 09/11/17 05:58 Troponin I 0.03 ng/mL (0.01-0.05) 09/09/17 10:15 B-Natriuretic Peptide 88.6 pg/mL (5.0-100.0) 09/10/17 05:40 Total Protein 6.3 gm/dL (6.0-8.3) 09/11/17 05:58 Albumin 3.3 gm/dL (4.2-5.5) L 09/11/17 05:58 Globulin 3.0 gm/dL 09/11/17 05:58 Albumin/Globulin Ratio 1.1 (1.0-1.8) 09/11/17 05:58 TSH 0.53 uIU/ml (0.34-5.60) 09/11/17 05:58 - Physical Exam Vitals and I&O: Vital Signs Temp 98.2 F 09/11/17 16:00 Pulse 77 09/12/17 07:23 Resp 20 09/12/17 07:23 BP 112/61 09/11/17 16:00 Pulse Ox 98 09/12/17 07:23 Intake & Output 09/11/17 09/12/17 09/12/17 18:59 06:59 18:59 Intake Total 100 100 Balance 100 100 Weight (lbs) 70.76 kg Intake: Intake, IV Amount 100 100 metroNIDAZOLE 500mg/NS 100 100 100mL 500 mg In 100 ml @ 100 mls/hr IV Q8HR [facility] Rx #:[id number] Other: Weight Source Bedscale Active Medications: Current Medications Acetaminophen (Tylenol) 650 mg PO Q4H PRN PRN Reason: Mild pain, temp above 100 Stop: 11/07/17 22:07 Al Hydrox/Mg Hydrox/Simethicone (Maalox) 30 ml PO Q4HR PRN PRN Reason: GI distress Stop: 11/07/17 22:12 Albuterol/Ipratropium (Duoneb Neb) 3 ml HHN Q4H PRN PRN Reason: Wheezing Stop: 11/07/17 19:41 Last Admin: 09/09/17 07:34 Dose: 3 ml Albuterol/Ipratropium (Duoneb Neb) 3 ml HHN [id number] ANG Stop: 11/09/17 14:59 Last Admin: 09/12/17 07:20 Dose: 3 ml Amlodipine Besylate (Norvasc) 5 mg PO DAILY ANG Stop: 11/08/17 08:59 Last Admin: 09/11/17 09:01 Dose: Not Given Ascorbic Acid (Vitamin C) 500 mg PO DAILY ANG Stop: 11/08/17 08:59 Last Admin: 09/11/17 10:49 Dose: Not Given Budesonide (Pulmicort) 0.5 mg HHN BIDRT ANG Stop: 11/09/17 18:59 Last Admin: 09/12/17 07:20 Dose: 0.5 mg Donepezil HCl (Aricept) 10 mg PO HS [facility] Stop: 11/08/17 20:59 Last Admin: 09/11/17 23:00 Dose: 10 mg Levofloxacin (Levaquin Pb) 250 mg in 50 mls @ 50 mls/hr IV Q24HR ANG Stop: 11/09/17 08:59 Last Admin: 09/11/17 09:02 Dose: Not Given Dextrose/Sodium Chloride (D5-0.45ns) 1,000 mls @ 50 mls/hr IV .Q20H ANG Stop: 11/09/17 08:14 Last Admin: 09/11/17 05:07 Dose: 50 mls/hr Metronidazole (Flagyl) 500 mg in 100 mls @ 100 mls/hr IV Q8HR ANG Stop: 11/09/17 12:59 Last Admin: 09/12/17 05:59 Dose: 100 mls/hr Latanoprost (Xalatan 0.005% Ophth Soln) 1 drop EACH EYE [facility] Stop: 11/08/17 20:59 Last Admin: 09/12/17 02:48 Dose: Not Given Losartan Potassium (Cozaar) 50 mg PO DAILY [facility] Stop: 11/08/17 08:59 Last Admin: 09/11/17 09:03 Dose: Not Given Magnesium Hydroxide (Milk Of Magnesia) 30 ml PO HS PRN PRN Reason: Constipation Stop: 11/07/17 22:20 Memantine (Namenda) 5 mg PO DAILY ANG Stop: 11/08/17 08:59 Last Admin: 09/11/17 09:04 Dose: Not Given Methylprednisolone Sodium Succinate (Solu-Medrol) 80 mg IVP Q12HR ANG Stop: 11/09/17 08:59 Last Admin: 09/12/17 00:22 Dose: 80 mg Multivitamins/Vitamin C (Theragran) 1 tab PO DAILY [facility] Stop: 11/08/17 08:59 Last Admin: 09/11/17 09:04 Dose: Not Given Olanzapine (Zyprexa) 5 mg PO HS ANG PRN Reason: Protocol Stop: 11/08/17 20:59 Last Admin: 09/11/17 23:00 Dose: 5 mg Olanzapine (Zyprexa) 2.5 mg PO DAILY ANG PRN Reason: Protocol Stop: 11/08/17 08:59 Last Admin: 09/11/17 09:05 Dose: Not Given Tamsulosin HCl (Flomax) 0.4 mg PO HS [facility] Stop: 11/08/17 20:59 Last Admin: 09/11/17 23:00 Dose: 0.4 mg Zolpidem Tartrate (Ambien) 5 mg PO HS PRN PRN Reason: Insomnia Stop: 11/07/17 22:26 Last Admin: 09/12/17 00:38 Dose: 5 mg General: Alert HEENT: Atraumatic, PERRLA, EOMI Cardiovascular: Regular rate, Normal S1, Normal S2 Lungs: Other (rhonchi) Abdomen: Bowel sounds, Soft Extremities: Edema, no Clubbing, no Cyanosis Neurological: Normal gait Skin: no Rash Assessment/Plan - Assessment Assessment: leukocytosis pneumonia vs aspiration PNA htn bph glaucoma anemia dementia psychosis prerenal azotemia s/p gtube placement - Plan Plan: cbc cmp pulmonary consult id consult psyche consult levofloxacin 500mg IV daily Flagyl 500mg IV q8 gentle hydration for gtube placement. Nutritional Asmnt/Malnutr-PDOC - Dietary Evaluation Malnutrition Findings (Please click <Entered> for more info): Nutritional Asmnt/Malnutrition Start: 09/10/17 18: 01 Text: Status: Complete Freq: Document 09/10/17 18:01 OSMANJUAN CARLOS (Rec: 09/10/17 18:12 [id number] [id number]) Nutritional Asmnt/Malnutrition Patient General Information Nutritional Screening High Risk Diagnosis PNA Pertinent Medical Hx/Surgical Hx PNA Subjective Information Pt seen sleeping at time of visit. Per nurse, pt failed swallow eval this morning. ST recommended strict NPO. MD may order PEG placement tommorrow . Current Diet Order/ Nutrition Support NPO Pertinent Medications vit C, D5-0.45ns, levaquin, theragran Pertinent Labs 09/10 BUN 32 Nutritional Hx/Data Height 1.73 m Height (Calculated Centimeters) 172.7 Current Weight (lbs) 70.307 kg Weight (Calculated Kilograms) 70.3 Weight (Calculated Grams) 63640.8 [place] Body Weight 154 Body Mass Index (BMI) 23.6 Weight Status Approriate GI Symptoms GI Symptoms None Last BM 09/08 Difficult in: Swallowing Skin Integrity/Comment: reddened to lower back scabs on both feet Estimated Nutritional Goals BEE in Kcals: Using Current wt Calories/Kcals/Kg 23-27 Kcals Calculated 1511-4821 Protein: Using Current wt Protein g/k-1.2 Protein Calculated 63-74 Fluid: ml 1610-1890ml (1ml/kcal) Nutritional Problem 1. Problem Problem inadequate energy intake Etiology pt failed swallow eval Signs/Symptoms: pt on NPO and need alternative nutrition route Intervention/Recommendation Comments 1. Monitor NPO status. 2. If TF needed, recommend initiating Fibersource HN at 20ml/hr for first 24hr, increase 10ml/hr q12hr to goal rate of 55ml/hr continuous. It provides 1584kcal, 71g protein, 1069ml free water, meeting 100% of nutritional needs. 3. Monitor TF rate, tolerance, wt weekly, skin integrity and labs 4. F/U as high risk in 2-3 days, 09/12-09/13 Expected Outcomes/Goals Expected Outcomes/Goals 1. Pt to meet at least 75% of nutritional needs via nutrition support with tolerance 2. Wt stability, skin to remain intact, labs to approach WNL.
[2017-09-12] MEDS: Multivitamin Tab PO SCH (09:04)
--- NOTE | 2017-09-12 09:12 | GI Progress Note ---
Subjective - Review of Systems Service Date: 09/12/17 Subjective: Tolerating G tube feeding Objective - Results Result Diagrams: 09/11/17 05:58 09/11/17 05:58 Recent Labs: Laboratory Last Values WBC 7.2 Th/cmm (4.8-10.8) 09/11/17 05:58 RBC 3.96 Mil/cmm (3.80-5.80) 09/11/17 05:58 Hgb 11.7 gm/dL (12-16) L 09/11/17 05:58 Hct 34.8 % (41.0-60) L 09/11/17 05:58 MCV 87.8 fl (80-99) 09/11/17 05:58 MCH 29.6 pg (27.0-31.0) 09/11/17 05:58 MCHC Differential 33.7 pg (28.0-36.0) 09/11/17 05:58 RDW 13.7 % (11.5-20.0) 09/11/17 05:58 Plt Count 234 Th/cmm (150-400) 09/11/17 05:58 MPV 7.7 fl 09/11/17 05:58 Neutrophils % 68.3 % (40.0-80.0) 09/10/17 05:40 Band Neutrophils % 2 % (0-10) 09/11/17 05:58 Lymphocytes % 16.7 % (20.0-50.0) L 09/10/17 05:40 Monocytes % 13.9 % (2.0-10.0) H 09/10/17 05:40 Eosinophils % 0.7 % (0.0-5.0) 09/10/17 05:40 Basophils % 0.4 % (0.0-2.0) 09/10/17 05:40 Neutrophils (Manual) 87 % (40-80) H 09/11/17 05:58 Lymphocytes 9 % (20-50) L 09/11/17 05:58 Monocytes 2 % (2-10) 09/11/17 05:58 Platelet Estimate ADEQUATE (NORMAL) 09/11/17 05:58 PT 11.7 SECONDS (9.5-11.5) H 09/11/17 05:58 INR 1.12 (0.5-1.4) 09/11/17 05:58 Specimen Source Arterial 09/11/17 08:20 Sample Site RB 09/11/17 08:20 pH 7.45 (7.35-7.45) 09/11/17 08:20 pCO2 35.0 mmHg (35.0-45.0) 09/11/17 08:20 pO2 66.0 mmHg (80.0-100.0) L 09/11/17 08:20 HCO3 25.3 mEq/L (20.0-26.0) 09/11/17 08:20 Base Excess 0.6 mEq/L (-3.0-3.0) 09/11/17 08:20 O2 Saturation 94.0 % (92.0-100.0) 09/11/17 08:20 Franki Test POSITIVE 09/11/17 08:20 Vent Rate NA 09/11/17 08:20 Inspired O2 21 09/11/17 08:20 Tidal Volume NA 09/11/17 08:20 PEEP NA 09/11/17 08:20 Pressure (ins/psv/peep) NA 09/11/17 08:20 Critical Value SANDEEP CAMPOS 09/11/17 08:20 Sodium 139 mEq/L (136-145) 09/11/17 05:58 Potassium 4.1 mEq/L (3.5-5.1) 09/11/17 05:58 Chloride 109 mEq/L (98-107) H 09/11/17 05:58 Carbon Dioxide 23.6 mEq/L (21.0-31.0) 09/11/17 05:58 Anion Gap 10.5 (7.0-16.0) 09/11/17 05:58 BUN 37 mg/dL (7-25) H 09/11/17 05:58 Creatinine 0.9 mg/dL (0.7-1.3) 09/11/17 05:58 Est GFR ( Amer) TNP 09/11/17 05:58 Est GFR (Non-Af Amer) TNP 09/11/17 05:58 BUN/Creatinine Ratio 41.1 09/11/17 05:58 Glucose 160 mg/dL (70-105) H 09/11/17 05:58 POC Glucose 116 MG/DL (70 - 105) H 09/09/17 08:06 Calcium 9.6 mg/dL (8.6-10.3) 09/11/17 05:58 Total Bilirubin 0.7 mg/dL (0.3-1.0) 09/11/17 05:58 AST 15 U/L (13-39) 09/11/17 05:58 ALT 16 U/L (7-52) 09/11/17 05:58 Alkaline Phosphatase 100 U/L (34-104) 09/11/17 05:58 Troponin I 0.03 ng/mL (0.01-0.05) 09/09/17 10:15 B-Natriuretic Peptide 88.6 pg/mL (5.0-100.0) 09/10/17 05:40 Total Protein 6.3 gm/dL (6.0-8.3) 09/11/17 05:58 Albumin 3.3 gm/dL (4.2-5.5) L 09/11/17 05:58 Globulin 3.0 gm/dL 09/11/17 05:58 Albumin/Globulin Ratio 1.1 (1.0-1.8) 09/11/17 05:58 TSH 0.53 uIU/ml (0.34-5.60) 09/11/17 05:58 - Physical Exam Vitals and I&O: Vital Signs Temp 98.2 F 09/11/17 16:00 Pulse 65 09/12/17 09:07 Resp 20 09/12/17 07:23 BP 125/65 09/12/17 09:07 Pulse Ox 98 09/12/17 07:23 Intake & Output 09/11/17 09/12/17 09/12/17 18:59 06:59 18:59 Intake Total 100 100 Balance 100 100 Weight (lbs) 70.76 kg Intake: Intake, IV Amount 100 100 metroNIDAZOLE 500mg/NS 100 100 100mL 500 mg In 100 ml @ 100 mls/hr IV Q8HR [facility] Rx #:[id number] Other: Weight Source Bedscale Active Medications: Current Medications Acetaminophen (Tylenol) 650 mg PO Q4H PRN PRN Reason: Mild pain, temp above 100 Stop: 11/07/17 22:07 Al Hydrox/Mg Hydrox/Simethicone (Maalox) 30 ml PO Q4HR PRN PRN Reason: GI distress Stop: 11/07/17 22:12 Albuterol/Ipratropium (Duoneb Neb) 3 ml HHN Q4H PRN PRN Reason: Wheezing Stop: 11/07/17 19:41 Last Admin: 09/09/17 07:34 Dose: 3 ml Albuterol/Ipratropium (Duoneb Neb) 3 ml HHN [id number] ANG Stop: 11/09/17 14:59 Last Admin: 09/12/17 07:20 Dose: 3 ml Amlodipine Besylate (Norvasc) 5 mg PO DAILY ANG Stop: 11/08/17 08:59 Last Admin: 09/12/17 09:04 Dose: 5 mg Ascorbic Acid (Vitamin C) 500 mg PO DAILY ANG Stop: 11/08/17 08:59 Last Admin: 09/12/17 09:04 Dose: 500 mg Budesonide (Pulmicort) 0.5 mg HHN BIDRT ANG Stop: 11/09/17 18:59 Last Admin: 09/12/17 07:20 Dose: 0.5 mg Donepezil HCl (Aricept) 10 mg PO HS ANG Stop: 11/08/17 20:59 Last Admin: 09/11/17 23:00 Dose: 10 mg Levofloxacin (Levaquin Pb) 250 mg in 50 mls @ 50 mls/hr IV Q24HR ANG Stop: 11/09/17 08:59 Last Admin: 09/11/17 09:02 Dose: Not Given Dextrose/Sodium Chloride (D5-0.45ns) 1,000 mls @ 50 mls/hr IV .Q20H ANG Stop: 11/09/17 08:14 Last Admin: 09/11/17 05:07 Dose: 50 mls/hr Metronidazole (Flagyl) 500 mg in 100 mls @ 100 mls/hr IV Q8HR ANG Stop: 11/09/17 12:59 Last Admin: 09/12/17 05:59 Dose: 100 mls/hr Latanoprost (Xalatan 0.005% Ophth Soln) 1 drop EACH EYE [facility] Stop: 11/08/17 20:59 Last Admin: 09/12/17 02:48 Dose: Not Given Losartan Potassium (Cozaar) 50 mg PO DAILY ANG Stop: 11/08/17 08:59 Last Admin: 09/12/17 09:07 Dose: 50 mg Magnesium Hydroxide (Milk Of Magnesia) 30 ml PO HS PRN PRN Reason: Constipation Stop: 11/07/17 22:20 Memantine (Namenda) 5 mg PO DAILY [facility] Stop: 11/08/17 08:59 Last Admin: 09/12/17 09:04 Dose: 5 mg Methylprednisolone Sodium Succinate (Solu-Medrol) 80 mg IVP Q12HR ANG Stop: 11/09/17 08:59 Last Admin: 09/12/17 09:08 Dose: 80 mg Multivitamins/Vitamin C (Theragran) 1 tab PO DAILY ANG Stop: 11/08/17 08:59 Last Admin: 09/12/17 09:04 Dose: 1 tab Olanzapine (Zyprexa) 5 mg PO HS ANG PRN Reason: Protocol Stop: 11/08/17 20:59 Last Admin: 09/11/17 23:00 Dose: 5 mg Olanzapine (Zyprexa) 2.5 mg PO DAILY ANG PRN Reason: Protocol Stop: 11/08/17 08:59 Last Admin: 09/11/17 09:05 Dose: Not Given Tamsulosin HCl (Flomax) 0.4 mg PO HS [facility] Stop: 11/08/17 20:59 Last Admin: 09/11/17 23:00 Dose: 0.4 mg Zolpidem Tartrate (Ambien) 5 mg PO HS PRN PRN Reason: Insomnia Stop: 11/07/17 22:26 Last Admin: 09/12/17 00:38 Dose: 5 mg General: Alert HEENT: Atraumatic, PERRLA, EOMI Cardiovascular: Regular rate, Normal S1, Normal S2 Lungs: Other (rhonchi) Abdomen: Bowel sounds, Soft Extremities: Edema, no Clubbing, no Cyanosis Neurological: Normal gait Skin: no Rash - Procedures Procedures: Procedures Procedure Code Date EGD PLACE GASTROSTOMY TUBE 87154 09/08/17 INSERTION OF FEEDING DEVICE INTO STOMACH, PERC APPROACH [id number] 09/08/17 Assessment/Plan - Assessment Assessment: # Anorexia # Failure to thrive # Pneumonia # Dementia G tube placed on 09/11 and pt tolerating his feeds this morning. Plan: - cont tube feeding at goal rate - check residual every 6 hr, hold for > 100cc - flush G tube with 100cc water every 6 hours - management of PNA as per primary GI to see as needed, please call with questions
[2017-09-12] MEDS: Levofloxacin 250mg/50mL 250 MG/50 ML BAG IV SCH (11:24)
--- NOTE | 2017-09-12 14:20 | Infectious Disease Prog Note ---
Infectious Disease Subjective - Review of Systems Service Date: 09/12/17 Subjective: No change, no fever. Infectious Disease Objective - Results Result Diagrams: 09/11/17 05:58 09/11/17 05:58 Recent Labs: Laboratory Last Values WBC 7.2 Th/cmm (4.8-10.8) 09/11/17 05:58 RBC 3.96 Mil/cmm (3.80-5.80) 09/11/17 05:58 Hgb 11.7 gm/dL (12-16) L 09/11/17 05:58 Hct 34.8 % (41.0-60) L 09/11/17 05:58 MCV 87.8 fl (80-99) 09/11/17 05:58 MCH 29.6 pg (27.0-31.0) 09/11/17 05:58 MCHC Differential 33.7 pg (28.0-36.0) 09/11/17 05:58 RDW 13.7 % (11.5-20.0) 09/11/17 05:58 Plt Count 234 Th/cmm (150-400) 09/11/17 05:58 MPV 7.7 fl 09/11/17 05:58 Neutrophils % 68.3 % (40.0-80.0) 09/10/17 05:40 Band Neutrophils % 2 % (0-10) 09/11/17 05:58 Lymphocytes % 16.7 % (20.0-50.0) L 09/10/17 05:40 Monocytes % 13.9 % (2.0-10.0) H 09/10/17 05:40 Eosinophils % 0.7 % (0.0-5.0) 09/10/17 05:40 Basophils % 0.4 % (0.0-2.0) 09/10/17 05:40 Neutrophils (Manual) 87 % (40-80) H 09/11/17 05:58 Lymphocytes 9 % (20-50) L 09/11/17 05:58 Monocytes 2 % (2-10) 09/11/17 05:58 Platelet Estimate ADEQUATE (NORMAL) 09/11/17 05:58 PT 11.7 SECONDS (9.5-11.5) H 09/11/17 05:58 INR 1.12 (0.5-1.4) 09/11/17 05:58 Specimen Source Arterial 09/11/17 08:20 Sample Site RB 09/11/17 08:20 pH 7.45 (7.35-7.45) 09/11/17 08:20 pCO2 35.0 mmHg (35.0-45.0) 09/11/17 08:20 pO2 66.0 mmHg (80.0-100.0) L 09/11/17 08:20 HCO3 25.3 mEq/L (20.0-26.0) 09/11/17 08:20 Base Excess 0.6 mEq/L (-3.0-3.0) 09/11/17 08:20 O2 Saturation 94.0 % (92.0-100.0) 09/11/17 08:20 Franki Test POSITIVE 09/11/17 08:20 Vent Rate NA 09/11/17 08:20 Inspired O2 21 09/11/17 08:20 Tidal Volume NA 09/11/17 08:20 PEEP NA 09/11/17 08:20 Pressure (ins/psv/peep) NA 09/11/17 08:20 Critical Value SANDEEP CAMPOS 09/11/17 08:20 Sodium 139 mEq/L (136-145) 09/11/17 05:58 Potassium 4.1 mEq/L (3.5-5.1) 09/11/17 05:58 Chloride 109 mEq/L (98-107) H 09/11/17 05:58 Carbon Dioxide 23.6 mEq/L (21.0-31.0) 09/11/17 05:58 Anion Gap 10.5 (7.0-16.0) 09/11/17 05:58 BUN 37 mg/dL (7-25) H 09/11/17 05:58 Creatinine 0.9 mg/dL (0.7-1.3) 09/11/17 05:58 Est GFR ( Amer) TNP 09/11/17 05:58 Est GFR (Non-Af Amer) TNP 09/11/17 05:58 BUN/Creatinine Ratio 41.1 09/11/17 05:58 Glucose 160 mg/dL (70-105) H 09/11/17 05:58 POC Glucose 116 MG/DL (70 - 105) H 09/09/17 08:06 Calcium 9.6 mg/dL (8.6-10.3) 09/11/17 05:58 Total Bilirubin 0.7 mg/dL (0.3-1.0) 09/11/17 05:58 AST 15 U/L (13-39) 09/11/17 05:58 ALT 16 U/L (7-52) 09/11/17 05:58 Alkaline Phosphatase 100 U/L (34-104) 09/11/17 05:58 Troponin I 0.03 ng/mL (0.01-0.05) 09/09/17 10:15 B-Natriuretic Peptide 88.6 pg/mL (5.0-100.0) 09/10/17 05:40 Total Protein 6.3 gm/dL (6.0-8.3) 09/11/17 05:58 Albumin 3.3 gm/dL (4.2-5.5) L 09/11/17 05:58 Globulin 3.0 gm/dL 09/11/17 05:58 Albumin/Globulin Ratio 1.1 (1.0-1.8) 09/11/17 05:58 TSH 0.53 uIU/ml (0.34-5.60) 09/11/17 05:58 Helicobacter pylori Ab NEGATIVE (NEGATIVE) 09/11/17 09:50 - Physical Exam Vitals and I&O: Vital Signs Temp 98.2 F 09/11/17 16:00 Pulse 79 09/12/17 10:31 Resp 22 09/12/17 10:31 BP 125/65 09/12/17 09:07 Pulse Ox 99 09/12/17 10:31 Intake & Output 09/11/17 09/12/17 09/12/17 18:59 06:59 18:59 Intake Total 100 200 Balance 100 200 Weight (lbs) 70.76 kg Intake: Intake, IV Amount 100 200 metroNIDAZOLE 500mg/NS 100 200 100mL 500 mg In 100 ml @ 100 mls/hr IV Q8HR [facility] Rx #:[id number] Other: Weight Source Bedscale Active Medications: Current Medications Acetaminophen (Tylenol) 650 mg PO Q4H PRN PRN Reason: Mild pain, temp above 100 Stop: 11/07/17 22:07 Al Hydrox/Mg Hydrox/Simethicone (Maalox) 30 ml PO Q4HR PRN PRN Reason: GI distress Stop: 11/07/17 22:12 Albuterol/Ipratropium (Duoneb Neb) 3 ml HHN Q4H PRN PRN Reason: Wheezing Stop: 11/07/17 19:41 Last Admin: 09/09/17 07:34 Dose: 3 ml Albuterol/Ipratropium (Duoneb Neb) 3 ml HHN [id number] ANG Stop: 11/09/17 14:59 Last Admin: 09/12/17 10:31 Dose: 3 ml Amlodipine Besylate (Norvasc) 5 mg PO DAILY ANG Stop: 11/08/17 08:59 Last Admin: 09/12/17 09:04 Dose: 5 mg Ascorbic Acid (Vitamin C) 500 mg PO DAILY ANG Stop: 11/08/17 08:59 Last Admin: 09/12/17 09:04 Dose: 500 mg Budesonide (Pulmicort) 0.5 mg HHN BIDRT ANG Stop: 11/09/17 18:59 Last Admin: 09/12/17 07:20 Dose: 0.5 mg Donepezil HCl (Aricept) 10 mg PO HS ANG Stop: 11/08/17 20:59 Last Admin: 09/11/17 23:00 Dose: 10 mg Levofloxacin (Levaquin Pb) 250 mg in 50 mls @ 50 mls/hr IV Q24HR ANG Stop: 11/09/17 08:59 Last Admin: 09/12/17 11:24 Dose: 50 mls/hr Dextrose/Sodium Chloride (D5-0.45ns) 1,000 mls @ 50 mls/hr IV .Q20H ANG Stop: 11/09/17 08:14 Last Admin: 09/11/17 05:07 Dose: 50 mls/hr Metronidazole (Flagyl) 500 mg in 100 mls @ 100 mls/hr IV Q8HR ANG Stop: 11/09/17 12:59 Last Admin: 09/12/17 12:15 Dose: 100 mls/hr Latanoprost (Xalatan 0.005% Ophth Soln) 1 drop EACH EYE HS ANG Stop: 11/08/17 20:59 Last Admin: 09/12/17 02:48 Dose: Not Given Lorazepam (Ativan) 1 mg GT Q6HR PRN; Protocol PRN Reason: Agitation Stop: 11/11/17 11:14 Losartan Potassium (Cozaar) 50 mg PO DAILY ANG Stop: 11/08/17 08:59 Last Admin: 09/12/17 09:07 Dose: 50 mg Magnesium Hydroxide (Milk Of Magnesia) 30 ml PO HS PRN PRN Reason: Constipation Stop: 11/07/17 22:20 Memantine (Namenda) 5 mg PO DAILY ANG Stop: 11/08/17 08:59 Last Admin: 09/12/17 09:04 Dose: 5 mg Methylprednisolone Sodium Succinate (Solu-Medrol) 80 mg IVP Q12HR ANG Stop: 11/09/17 08:59 Last Admin: 09/12/17 09:08 Dose: 80 mg Multivitamins/Vitamin C (Theragran) 1 tab PO DAILY ANG Stop: 11/08/17 08:59 Last Admin: 09/12/17 09:04 Dose: 1 tab Olanzapine (Zyprexa) 5 mg PO HS ANG PRN Reason: Protocol Stop: 11/08/17 20:59 Last Admin: 09/11/17 23:00 Dose: 5 mg Olanzapine (Zyprexa) 2.5 mg PO DAILY ANG PRN Reason: Protocol Stop: 11/08/17 08:59 Last Admin: 09/12/17 11:22 Dose: 2.5 mg Tamsulosin HCl (Flomax) 0.4 mg PO HS ANG Stop: 11/08/17 20:59 Last Admin: 09/11/17 23:00 Dose: 0.4 mg Zolpidem Tartrate (Ambien) 5 mg PO HS PRN PRN Reason: Insomnia Stop: 11/07/17 22:26 Last Admin: 09/12/17 00:38 Dose: 5 mg General: no acute distress, well developed, well nourished HEENT: atraumatic, normocephalic, PERRLA, EOMI Neck: supple, no thyromegaly Cardiovascular: S1S2, regular Lungs: clear to auscultation bilaterally, clear to percussion Abdomen: soft, bowel sounds, no tender, no distended, no mass, no rebound, no hepatomegaly, no splenomegaly Extremities: no cyanosis, no clubbing, no edema Skin: intact - Procedures Procedures: Procedures Procedure Code Date EGD PLACE GASTROSTOMY TUBE 50470 09/08/17 INSERTION OF FEEDING DEVICE INTO STOMACH, PERC APPROACH [id number] 09/08/17 Infectious Disease Assmt/Plan - Assessment Assessment: 1. Pneumonia. 2. Dementia. 3. Psychosis. 4. Anemia. 5. Benign prostatic hypertrophy. 6. Hypertension. 7. Glaucoma. 8. Prerenal azotemia. - Plan Plan: Continue Levaquin. Nutritional Asmnt/Malnutr-PDOC - Dietary Evaluation Malnutrition Findings (Please click <Entered> for more info): Nutritional Asmnt/Malnutrition Start: 09/10/17 18: 01 Text: Status: Complete Freq: Document 09/10/17 18:01 [facility] (Rec: 09/10/17 18:12 LCHEN [id number]) Nutritional Asmnt/Malnutrition Patient General Information Nutritional Screening High Risk Diagnosis PNA Pertinent Medical Hx/Surgical Hx PNA Subjective Information Pt seen sleeping at time of visit. Per nurse, pt failed swallow eval this morning. ST recommended strict NPO. MD may order PEG placement tommorrow . Current Diet Order/ Nutrition Support NPO Pertinent Medications vit C, D5-0.45ns, levaquin, theragran Pertinent Labs 09/10 BUN 32 Nutritional Hx/Data Height 1.73 m Height (Calculated Centimeters) 172.7 Current Weight (lbs) 70.307 kg Weight (Calculated Kilograms) 70.3 Weight (Calculated Grams) 04365.8 [place] Body Weight 154 Body Mass Index (BMI) 23.6 Weight Status Approriate GI Symptoms GI Symptoms None Last BM 09/08 Difficult in: Swallowing Skin Integrity/Comment: reddened to lower back scabs on both feet Estimated Nutritional Goals BEE in Kcals: Using Current wt Calories/Kcals/Kg 23-27 Kcals Calculated 9329-7306 Protein: Using Current wt Protein g/k-1.2 Protein Calculated 63-74 Fluid: ml 1610-1890ml (1ml/kcal) Nutritional Problem 1. Problem Problem inadequate energy intake Etiology pt failed swallow eval Signs/Symptoms: pt on NPO and need alternative nutrition route Intervention/Recommendation Comments 1. Monitor NPO status. 2. If TF needed, recommend initiating Fibersource HN at 20ml/hr for first 24hr, increase 10ml/hr q12hr to goal rate of 55ml/hr continuous. It provides 1584kcal, 71g protein, 1069ml free water, meeting 100% of nutritional needs. 3. Monitor TF rate, tolerance, wt weekly, skin integrity and labs 4. F/U as high risk in 2-3 days, 09/12-09/13 Expected Outcomes/Goals Expected Outcomes/Goals 1. Pt to meet at least 75% of nutritional needs via nutrition support with tolerance 2. Wt stability, skin to remain intact, labs to approach WNL.
[2017-09-12] MEDS: D5-0.45NS 1,000 ML IV SCH (17:18)
--- NOTE | 2017-09-12 23:59 | Progress Notes ---
DATE: 09/12/2017 SUBJECTIVE: Case discussed with staff of the patient. The patient continues to be unable to communicate. He is recovering from pneumonia. He had a biopsy yesterday. Also endoscopy has been done for him. The patient so far has not been as agitated. He is much calmer and he stays in bed most of the time, which is his pattern even when he was at the [place] [facility] and no side effect for the medication. If he is not agitated, he can go back to the [place] [facility]; however, he still gets agitated and wants to go back to [facility]. Thank you very much for allowing me to participate in the care of this most interesting gentleman. JOB# [id number]
[2017-09-13] MEDS: metroNIDAZOLE 500mg/NS 100mL 500 MG/100 ML BAG IV SCH ×3 (04:31→21:54)
--- NOTE | 2017-09-13 05:52 | General Progress Note ---
Subjective - Review of Systems Service Date: 09/13/17 Subjective: s/p G-tube placement today. Patient was seen and examined. doing much better today. on g-tube feeding per dietary .Continue IV fluids. No acute distress. chest congestion improved. possible aspiration pneumonia. Will continue current treatment. Spoke to Niece. Would like to keep patient here for the weekend for continued care. Objective - Results Result Diagrams: 09/11/17 05:58 09/11/17 05:58 Recent Labs: Laboratory Last Values WBC 7.2 Th/cmm (4.8-10.8) 09/11/17 05:58 RBC 3.96 Mil/cmm (3.80-5.80) 09/11/17 05:58 Hgb 11.7 gm/dL (12-16) L 09/11/17 05:58 Hct 34.8 % (41.0-60) L 09/11/17 05:58 MCV 87.8 fl (80-99) 09/11/17 05:58 MCH 29.6 pg (27.0-31.0) 09/11/17 05:58 MCHC Differential 33.7 pg (28.0-36.0) 09/11/17 05:58 RDW 13.7 % (11.5-20.0) 09/11/17 05:58 Plt Count 234 Th/cmm (150-400) 09/11/17 05:58 MPV 7.7 fl 09/11/17 05:58 Neutrophils % 68.3 % (40.0-80.0) 09/10/17 05:40 Band Neutrophils % 2 % (0-10) 09/11/17 05:58 Lymphocytes % 16.7 % (20.0-50.0) L 09/10/17 05:40 Monocytes % 13.9 % (2.0-10.0) H 09/10/17 05:40 Eosinophils % 0.7 % (0.0-5.0) 09/10/17 05:40 Basophils % 0.4 % (0.0-2.0) 09/10/17 05:40 Neutrophils (Manual) 87 % (40-80) H 09/11/17 05:58 Lymphocytes 9 % (20-50) L 09/11/17 05:58 Monocytes 2 % (2-10) 09/11/17 05:58 Platelet Estimate ADEQUATE (NORMAL) 09/11/17 05:58 PT 11.7 SECONDS (9.5-11.5) H 09/11/17 05:58 INR 1.12 (0.5-1.4) 09/11/17 05:58 Specimen Source Arterial 09/11/17 08:20 Sample Site RB 09/11/17 08:20 pH 7.45 (7.35-7.45) 09/11/17 08:20 pCO2 35.0 mmHg (35.0-45.0) 09/11/17 08:20 pO2 66.0 mmHg (80.0-100.0) L 09/11/17 08:20 HCO3 25.3 mEq/L (20.0-26.0) 09/11/17 08:20 Base Excess 0.6 mEq/L (-3.0-3.0) 09/11/17 08:20 O2 Saturation 94.0 % (92.0-100.0) 09/11/17 08:20 Franki Test POSITIVE 09/11/17 08:20 Vent Rate NA 09/11/17 08:20 Inspired O2 21 09/11/17 08:20 Tidal Volume NA 09/11/17 08:20 PEEP NA 09/11/17 08:20 Pressure (ins/psv/peep) NA 09/11/17 08:20 Critical Value SANDEEP CAMPOS 09/11/17 08:20 Sodium 139 mEq/L (136-145) 09/11/17 05:58 Potassium 4.1 mEq/L (3.5-5.1) 09/11/17 05:58 Chloride 109 mEq/L (98-107) H 09/11/17 05:58 Carbon Dioxide 23.6 mEq/L (21.0-31.0) 09/11/17 05:58 Anion Gap 10.5 (7.0-16.0) 09/11/17 05:58 BUN 37 mg/dL (7-25) H 09/11/17 05:58 Creatinine 0.9 mg/dL (0.7-1.3) 09/11/17 05:58 Est GFR ( Amer) TNP 09/11/17 05:58 Est GFR (Non-Af Amer) TNP 09/11/17 05:58 BUN/Creatinine Ratio 41.1 09/11/17 05:58 Glucose 160 mg/dL (70-105) H 09/11/17 05:58 POC Glucose 116 MG/DL (70 - 105) H 09/09/17 08:06 Calcium 9.6 mg/dL (8.6-10.3) 09/11/17 05:58 Total Bilirubin 0.7 mg/dL (0.3-1.0) 09/11/17 05:58 AST 15 U/L (13-39) 09/11/17 05:58 ALT 16 U/L (7-52) 09/11/17 05:58 Alkaline Phosphatase 100 U/L (34-104) 09/11/17 05:58 Troponin I 0.03 ng/mL (0.01-0.05) 09/09/17 10:15 B-Natriuretic Peptide 88.6 pg/mL (5.0-100.0) 09/10/17 05:40 Total Protein 6.3 gm/dL (6.0-8.3) 09/11/17 05:58 Albumin 3.3 gm/dL (4.2-5.5) L 09/11/17 05:58 Globulin 3.0 gm/dL 09/11/17 05:58 Albumin/Globulin Ratio 1.1 (1.0-1.8) 09/11/17 05:58 TSH 0.53 uIU/ml (0.34-5.60) 09/11/17 05:58 Helicobacter pylori Ab NEGATIVE (NEGATIVE) 09/11/17 09:50 - Physical Exam Vitals and I&O: Vital Signs Temp 98.6 F 09/13/17 04:00 Pulse 73 09/13/17 04:00 Resp 20 09/13/17 04:00 BP 127/85 09/13/17 04:00 Pulse Ox 98 09/13/17 04:00 Intake & Output 09/12/17 09/12/17 09/13/17 06:59 18:59 06:59 Intake Total 1200 1000 750 Balance 1200 1000 750 Weight (lbs) 70.76 kg 59.477 kg Intake: Intake, IV Amount 1200 100 100 D5-0.45NS 1,000 ml @ 50 1000 mls/hr IV .Q20H [facility] Rx#: [id number] metroNIDAZOLE 500mg/NS 200 100 100 100mL 500 mg In 100 ml @ 100 mls/hr IV Q8HR [facility] Rx #:[id number] Oral 0 Tube Feeding 600 650 Other 300 Other: # Voids 2 # Bowel Movements 0 0 Weight Source Bedscale Bedscale Active Medications: Current Medications Acetaminophen (Tylenol) 650 mg PO Q4H PRN PRN Reason: Mild pain, temp above 100 Stop: 11/07/17 22:07 Al Hydrox/Mg Hydrox/Simethicone (Maalox) 30 ml PO Q4HR PRN PRN Reason: GI distress Stop: 11/07/17 22:12 Albuterol/Ipratropium (Duoneb Neb) 3 ml HHN Q4H PRN PRN Reason: Wheezing Stop: 11/07/17 19:41 Last Admin: 09/09/17 07:34 Dose: 3 ml Albuterol/Ipratropium (Duoneb Neb) 3 ml HHN [id number] [facility] Stop: 11/09/17 14:59 Last Admin: 09/12/17 19:23 Dose: 3 ml Amlodipine Besylate (Norvasc) 5 mg PO DAILY [facility] Stop: 11/08/17 08:59 Last Admin: 09/12/17 09:04 Dose: 5 mg Ascorbic Acid (Vitamin C) 500 mg PO DAILY [facility] Stop: 11/08/17 08:59 Last Admin: 09/12/17 09:04 Dose: 500 mg Budesonide (Pulmicort) 0.5 mg HHN BIDRT ANG Stop: 11/09/17 18:59 Last Admin: 09/12/17 19:23 Dose: 0.5 mg Donepezil HCl (Aricept) 10 mg PO HS [facility] Stop: 11/08/17 20:59 Last Admin: 09/12/17 21:23 Dose: 10 mg Levofloxacin (Levaquin Pb) 250 mg in 50 mls @ 50 mls/hr IV Q24HR [facility] Stop: 11/09/17 08:59 Last Admin: 09/12/17 11:24 Dose: 50 mls/hr Dextrose/Sodium Chloride (D5-0.45ns) 1,000 mls @ 50 mls/hr IV .Q20H [facility] Stop: 11/09/17 08:14 Last Admin: 09/12/17 17:18 Dose: 50 mls/hr Metronidazole (Flagyl) 500 mg in 100 mls @ 100 mls/hr IV Q8HR ANG Stop: 11/09/17 12:59 Last Admin: 09/13/17 04:31 Dose: 100 mls/hr Latanoprost (Xalatan 0.005% Ophth Soln) 1 drop EACH EYE HS ANG Stop: 11/08/17 20:59 Last Admin: 09/12/17 21:44 Dose: Not Given Lorazepam (Ativan) 1 mg GT Q6HR PRN; Protocol PRN Reason: Agitation Stop: 11/11/17 11:14 Last Admin: 09/12/17 17:13 Dose: 1 mg Losartan Potassium (Cozaar) 50 mg PO DAILY ANG Stop: 11/08/17 08:59 Last Admin: 09/12/17 09:07 Dose: 50 mg Magnesium Hydroxide (Milk Of Magnesia) 30 ml PO HS PRN PRN Reason: Constipation Stop: 11/07/17 22:20 Memantine (Namenda) 5 mg PO DAILY ANG Stop: 11/08/17 08:59 Last Admin: 09/12/17 09:04 Dose: 5 mg Methylprednisolone Sodium Succinate (Solu-Medrol) 80 mg IVP Q12HR ANG Stop: 11/09/17 08:59 Last Admin: 09/12/17 21:24 Dose: 80 mg Multivitamins/Vitamin C (Theragran) 1 tab PO DAILY ANG Stop: 11/08/17 08:59 Last Admin: 09/12/17 09:04 Dose: 1 tab Olanzapine (Zyprexa) 5 mg PO HS ANG PRN Reason: Protocol Stop: 11/08/17 20:59 Last Admin: 09/12/17 21:24 Dose: 5 mg Olanzapine (Zyprexa) 2.5 mg PO DAILY ANG PRN Reason: Protocol Stop: 11/08/17 08:59 Last Admin: 09/12/17 11:22 Dose: 2.5 mg Tamsulosin HCl (Flomax) 0.4 mg PO HS ANG Stop: 11/08/17 20:59 Last Admin: 09/12/17 21:27 Dose: 0.4 mg Zolpidem Tartrate (Ambien) 5 mg PO HS PRN PRN Reason: Insomnia Stop: 11/07/17 22:26 Last Admin: 09/12/17 00:38 Dose: 5 mg General: Alert HEENT: Atraumatic, PERRLA, EOMI Cardiovascular: Regular rate, Normal S1, Normal S2 Lungs: Other (rhonchi) Abdomen: Bowel sounds, Soft Extremities: Edema, no Clubbing, no Cyanosis Neurological: Normal gait Skin: no Rash Psych/Mental Status: Other (dementia) - Procedures Procedures: Procedures Procedure Code Date EGD PLACE GASTROSTOMY TUBE 91883 09/08/17 INSERTION OF FEEDING DEVICE INTO STOMACH, PERC APPROACH [id number] 09/08/17 Assessment/Plan - Assessment Assessment: leukocytosis pneumonia vs aspiration PNA htn bph glaucoma anemia dementia psychosis prerenal azotemia s/p g-tube placement - Plan Plan: cbc cmp pulmonary consult id consult psyche consult levofloxacin 500mg IV daily Flagyl 500mg IV q8 gentle hydration for g-tube placement. Nutritional Asmnt/Malnutr-PDOC - Dietary Evaluation Malnutrition Findings (Please click <Entered> for more info): Nutritional Asmnt/Malnutrition Start: 09/10/17 18: 01 Text: Status: Complete Freq: Document 09/10/17 18:01 [facility] (Rec: 09/10/17 18:12 HEN [id number]) Nutritional Asmnt/Malnutrition Patient General Information Nutritional Screening High Risk Diagnosis PNA Pertinent Medical Hx/Surgical Hx PNA Subjective Information Pt seen sleeping at time of visit. Per nurse, pt failed swallow eval this morning. ST recommended strict NPO. MD may order PEG placement tommorrow . Current Diet Order/ Nutrition Support NPO Pertinent Medications vit C, D5-0.45ns, levaquin, theragran Pertinent Labs 09/10 BUN 32 Nutritional Hx/Data Height 1.73 m Height (Calculated Centimeters) 172.7 Current Weight (lbs) 70.307 kg Weight (Calculated Kilograms) 70.3 Weight (Calculated Grams) 58414.8 [place] Body Weight 154 Body Mass Index (BMI) 23.6 Weight Status Approriate GI Symptoms GI Symptoms None Last BM 09/08 Difficult in: Swallowing Skin Integrity/Comment: reddened to lower back scabs on both feet Estimated Nutritional Goals BEE in Kcals: Using Current wt Calories/Kcals/Kg 23-27 Kcals Calculated 4412-6615 Protein: Using Current wt Protein g/k-1.2 Protein Calculated 63-74 Fluid: ml 1610-1890ml (1ml/kcal) Nutritional Problem 1. Problem Problem inadequate energy intake Etiology pt failed swallow eval Signs/Symptoms: pt on NPO and need alternative nutrition route Intervention/Recommendation Comments 1. Monitor NPO status. 2. If TF needed, recommend initiating Fibersource HN at 20ml/hr for first 24hr, increase 10ml/hr q12hr to goal rate of 55ml/hr continuous. It provides 1584kcal, 71g protein, 1069ml free water, meeting 100% of nutritional needs. 3. Monitor TF rate, tolerance, wt weekly, skin integrity and labs 4. F/U as high risk in 2-3 days, 09/12-09/13 Expected Outcomes/Goals Expected Outcomes/Goals 1. Pt to meet at least 75% of nutritional needs via nutrition support with tolerance 2. Wt stability, skin to remain intact, labs to approach WNL.
[2017-09-13] MEDS: Albuterol/Ipratropium Neb 3 ML AERS HHN SCH ×4 (07:53→18:48)
[2017-09-13] MEDS: Budesonide 0.5 Mg/2 mL Ud HHN SCH ×2 (07:54→18:48)
[2017-09-13] MEDS: Multivitamin Tab PO SCH (08:20)
[2017-09-13] MEDS: Levofloxacin 250mg/50mL 250 MG/50 ML BAG IV SCH (08:21)
[2017-09-13] MEDS: D5-0.45NS 1,000 ML IV SCH (12:18)
[2017-09-13] MEDS ORDERED: Maalox 30 mL Cup GT PRN (20:45)
--- NOTE | 2017-09-13 22:57 | Infectious Disease Prog Note ---
Infectious Disease Subjective - Review of Systems Service Date: 09/13/17 Subjective: No change, no fever. Infectious Disease Objective - Results Result Diagrams: 09/14/17 05:59 09/14/17 05:59 Recent Labs: Laboratory Last Values WBC 7.2 Th/cmm (4.8-10.8) 09/11/17 05:58 RBC 3.96 Mil/cmm (3.80-5.80) 09/11/17 05:58 Hgb 11.7 gm/dL (12-16) L 09/11/17 05:58 Hct 34.8 % (41.0-60) L 09/11/17 05:58 MCV 87.8 fl (80-99) 09/11/17 05:58 MCH 29.6 pg (27.0-31.0) 09/11/17 05:58 MCHC Differential 33.7 pg (28.0-36.0) 09/11/17 05:58 RDW 13.7 % (11.5-20.0) 09/11/17 05:58 Plt Count 234 Th/cmm (150-400) 09/11/17 05:58 MPV 7.7 fl 09/11/17 05:58 Neutrophils % 68.3 % (40.0-80.0) 09/10/17 05:40 Band Neutrophils % 2 % (0-10) 09/11/17 05:58 Lymphocytes % 16.7 % (20.0-50.0) L 09/10/17 05:40 Monocytes % 13.9 % (2.0-10.0) H 09/10/17 05:40 Eosinophils % 0.7 % (0.0-5.0) 09/10/17 05:40 Basophils % 0.4 % (0.0-2.0) 09/10/17 05:40 Neutrophils (Manual) 87 % (40-80) H 09/11/17 05:58 Lymphocytes 9 % (20-50) L 09/11/17 05:58 Monocytes 2 % (2-10) 09/11/17 05:58 Platelet Estimate ADEQUATE (NORMAL) 09/11/17 05:58 PT 11.7 SECONDS (9.5-11.5) H 09/11/17 05:58 INR 1.12 (0.5-1.4) 09/11/17 05:58 Specimen Source Arterial 09/11/17 08:20 Sample Site RB 09/11/17 08:20 pH 7.45 (7.35-7.45) 09/11/17 08:20 pCO2 35.0 mmHg (35.0-45.0) 09/11/17 08:20 pO2 66.0 mmHg (80.0-100.0) L 09/11/17 08:20 HCO3 25.3 mEq/L (20.0-26.0) 09/11/17 08:20 Base Excess 0.6 mEq/L (-3.0-3.0) 09/11/17 08:20 O2 Saturation 94.0 % (92.0-100.0) 09/11/17 08:20 Franki Test POSITIVE 09/11/17 08:20 Vent Rate NA 09/11/17 08:20 Inspired O2 21 09/11/17 08:20 Tidal Volume NA 09/11/17 08:20 PEEP NA 09/11/17 08:20 Pressure (ins/psv/peep) NA 09/11/17 08:20 Critical Value SANDEEP CAMPOS 09/11/17 08:20 Sodium 139 mEq/L (136-145) 09/11/17 05:58 Potassium 4.1 mEq/L (3.5-5.1) 09/11/17 05:58 Chloride 109 mEq/L (98-107) H 09/11/17 05:58 Carbon Dioxide 23.6 mEq/L (21.0-31.0) 09/11/17 05:58 Anion Gap 10.5 (7.0-16.0) 09/11/17 05:58 BUN 37 mg/dL (7-25) H 09/11/17 05:58 Creatinine 0.9 mg/dL (0.7-1.3) 09/11/17 05:58 Est GFR ( Amer) TNP 09/11/17 05:58 Est GFR (Non-Af Amer) TNP 09/11/17 05:58 BUN/Creatinine Ratio 41.1 09/11/17 05:58 Glucose 160 mg/dL (70-105) H 09/11/17 05:58 POC Glucose 116 MG/DL (70 - 105) H 09/09/17 08:06 Calcium 9.6 mg/dL (8.6-10.3) 09/11/17 05:58 Total Bilirubin 0.7 mg/dL (0.3-1.0) 09/11/17 05:58 AST 15 U/L (13-39) 09/11/17 05:58 ALT 16 U/L (7-52) 09/11/17 05:58 Alkaline Phosphatase 100 U/L (34-104) 09/11/17 05:58 Troponin I 0.03 ng/mL (0.01-0.05) 09/09/17 10:15 B-Natriuretic Peptide 88.6 pg/mL (5.0-100.0) 09/10/17 05:40 Total Protein 6.3 gm/dL (6.0-8.3) 09/11/17 05:58 Albumin 3.3 gm/dL (4.2-5.5) L 09/11/17 05:58 Globulin 3.0 gm/dL 09/11/17 05:58 Albumin/Globulin Ratio 1.1 (1.0-1.8) 09/11/17 05:58 TSH 0.53 uIU/ml (0.34-5.60) 09/11/17 05:58 Helicobacter pylori Ab NEGATIVE (NEGATIVE) 09/11/17 09:50 - Physical Exam Vitals and I&O: Vital Signs Temp 98.6 F 09/13/17 16:00 Pulse 64 09/13/17 18:45 Resp 20 09/13/17 18:45 BP 126/48 09/13/17 16:00 Pulse Ox 95 09/13/17 18:45 Intake & Output 09/13/17 09/13/17 09/14/17 06:59 18:59 06:59 Intake Total 850 1050 Balance 850 1050 Weight (lbs) 59.477 kg Intake: Intake, IV Amount 200 1050 D5-0.45NS 1,000 ml @ 50 950 mls/hr IV .Q20H ANG Rx#: [id number] metroNIDAZOLE 500mg/NS 200 100 100mL 500 mg In 100 ml @ 100 mls/hr IV Q8HR [facility] Rx #:[id number] Tube Feeding 650 Other: # Bowel Movements 0 Weight Source Bedscale Active Medications: Current Medications Acetaminophen (Tylenol) 650 mg GT Q4H PRN PRN Reason: Mild pain, temp above 100 Stop: 11/07/17 22:07 Al Hydrox/Mg Hydrox/Simethicone (Maalox) 30 ml GT Q4HR PRN PRN Reason: GI distress Stop: 11/07/17 22:12 Albuterol/Ipratropium (Duoneb Neb) 3 ml HHN Q4H PRN PRN Reason: Wheezing Stop: 11/07/17 19:41 Last Admin: 09/09/17 07:34 Dose: 3 ml Albuterol/Ipratropium (Duoneb Neb) 3 ml HHN [id number] ANG Stop: 11/09/17 14:59 Last Admin: 09/13/17 18:48 Dose: 3 ml Amlodipine Besylate (Norvasc) 5 mg GT DAILY [facility] Stop: 11/12/17 20:44 Ascorbic Acid (Vitamin C) 500 mg GT DAILY [facility] Stop: 11/12/17 20:45 Budesonide (Pulmicort) 0.5 mg HHN BIDRT [facility] Stop: 11/09/17 18:59 Last Admin: 09/13/17 18:48 Dose: 0.5 mg Donepezil HCl (Aricept) 10 mg GT HS [facility] Stop: 11/12/17 20:48 Last Admin: 09/13/17 21:54 Dose: 10 mg Levofloxacin (Levaquin Pb) 250 mg in 50 mls @ 50 mls/hr IV Q24HR [facility] Stop: 11/09/17 08:59 Last Admin: 09/13/17 08:21 Dose: 50 mls/hr Dextrose/Sodium Chloride (D5-0.45ns) 1,000 mls @ 50 mls/hr IV .Q20H [facility] Stop: 11/09/17 08:14 Last Admin: 09/13/17 12:18 Dose: 50 mls/hr Metronidazole (Flagyl) 500 mg in 100 mls @ 100 mls/hr IV Q8HR [facility] Stop: 11/09/17 12:59 Last Admin: 09/13/17 21:54 Dose: 100 mls/hr Latanoprost (Xalatan 0.005% Ophth Soln) 1 drop EACH EYE HS [facility] Stop: 11/08/17 20:59 Last Admin: 09/13/17 21:55 Dose: Not Given Lorazepam (Ativan) 1 mg GT Q6HR PRN; Protocol PRN Reason: Agitation Stop: 11/11/17 11:14 Last Admin: 09/13/17 06:46 Dose: 1 mg Losartan Potassium (Cozaar) 50 mg GT DAILY ANG Stop: 11/12/17 20:46 Magnesium Hydroxide (Milk Of Magnesia) 30 ml PO HS PRN PRN Reason: Constipation Stop: 11/07/17 22:20 Memantine (Namenda) 5 mg GT DAILY ANG Stop: 11/12/17 20:53 Methylprednisolone Sodium Succinate (Solu-Medrol) 80 mg IVP Q12HR ANG Stop: 11/09/17 08:59 Last Admin: 09/13/17 21:54 Dose: 80 mg Multivitamins/Vitamin C (Theragran) 1 tab GT DAILY [facility] Stop: 11/12/17 20:54 Olanzapine (Zyprexa) 5 mg GT HS ANG PRN Reason: Protocol Stop: 11/12/17 20:54 Olanzapine (Zyprexa) 2.5 mg GT DAILY ANG PRN Reason: Protocol Stop: 11/12/17 20:55 Tamsulosin HCl (Flomax) 0.4 mg GT HS ANG Stop: 11/12/17 20:55 Last Admin: 09/13/17 21:54 Dose: 0.4 mg Zolpidem Tartrate (Ambien) 5 mg GT HS PRN PRN Reason: Insomnia Stop: 11/07/17 22:26 General: no acute distress, cachectic HEENT: atraumatic, normocephalic, PERRLA, EOMI Neck: supple, no thyromegaly Cardiovascular: S1S2, regular Lungs: clear to percussion, crackles Abdomen: soft, no tender, no distended Extremities: no cyanosis, no clubbing, no edema Skin: intact - Procedures Procedures: Procedures Procedure Code Date EGD PLACE GASTROSTOMY TUBE 03886 09/08/17 INSERTION OF FEEDING DEVICE INTO STOMACH, PERC APPROACH [id number] 09/08/17 Infectious Disease Assmt/Plan - Assessment Assessment: 1. Pneumonia. 2. Dementia. 3. Psychosis. 4. Anemia. 5. Benign prostatic hypertrophy. 6. Hypertension. 7. Glaucoma. 8. Prerenal azotemia. - Plan Plan: Continue Levaquin. Nutritional Asmnt/Malnutr-PDOC - Dietary Evaluation Malnutrition Findings (Please click <Entered> for more info): Nutritional Asmnt/Malnutrition Start: 09/10/17 18: 01 Text: Status: Complete Freq: Document 09/10/17 18:01 JELLY (Rec: 09/10/17 18:12 JELLY [email or web address]) Nutritional Asmnt/Malnutrition Patient General Information Nutritional Screening High Risk Diagnosis PNA Pertinent Medical Hx/Surgical Hx PNA Subjective Information Pt seen sleeping at time of visit. Per nurse, pt failed swallow eval this morning. ST recommended strict NPO. MD may order PEG placement tommorrow . Current Diet Order/ Nutrition Support NPO Pertinent Medications vit C, D5-0.45ns, levaquin, theragran Pertinent Labs 09/10 BUN 32 Nutritional Hx/Data Height 1.73 m Height (Calculated Centimeters) 172.7 Current Weight (lbs) 70.307 kg Weight (Calculated Kilograms) 70.3 Weight (Calculated Grams) [address]49[address].8 [place] Body Weight 154 Body Mass Index (BMI) 23.6 Weight Status Approriate GI Symptoms GI Symptoms None Last BM 09/08 Difficult in: Swallowing Skin Integrity/Comment: reddened to lower back scabs on both feet Estimated Nutritional Goals BEE in Kcals: Using Current wt Calories/Kcals/Kg 23-27 Kcals Calculated 4010-9576 Protein: Using Current wt Protein g/k-1.2 Protein Calculated 63-74 Fluid: ml 1610-1890ml (1ml/kcal) Nutritional Problem 1. Problem Problem inadequate energy intake Etiology pt failed swallow eval Signs/Symptoms: pt on NPO and need alternative nutrition route Intervention/Recommendation Comments 1. Monitor NPO status. 2. If TF needed, recommend initiating Fibersource HN at 20ml/hr for first 24hr, increase 10ml/hr q12hr to goal rate of 55ml/hr continuous. It provides 1584kcal, 71g protein, 1069ml free water, meeting 100% of nutritional needs. 3. Monitor TF rate, tolerance, wt weekly, skin integrity and labs 4. F/U as high risk in 2-3 days, 09/12-09/13 Expected Outcomes/Goals Expected Outcomes/Goals 1. Pt to meet at least 75% of nutritional needs via nutrition support with tolerance 2. Wt stability, skin to remain intact, labs to approach WNL.
--- NOTE | 2017-09-13 23:49 | Progress Notes ---
DATE: 09/13/2017 PULMONARY PROGRESS NOTE PROBLEM LIST: 1. Acute aspiration pneumonia, improving. 2. Alzheimer's. 3. Dysphagia. 4. Status post G-tube placement. SYMPTOMS: Nil, feel free, still on and off confused, disoriented, no respiratory distress, etc. PHYSICAL EXAMINATION: VITAL SIGNS: T-max 98.2, blood pressure 128/68, and saturation 96%. NECK: Veins not visualized. CHEST: Shows diminished air entry with occasional secretory noise. ABDOMEN: Soft, nontender. EXTREMITIES: Shows no peripheral edema. ASSESSMENT: The patient is clinically stable respiratory luciano. PLANS AND SUGGESTIONS: We will go ahead and check x-rays out and CBC tomorrow, if it remains stable, possibly consideration for discharge. JOB# [id number]
[2017-09-14] MEDS: metroNIDAZOLE 500mg/NS 100mL 500 MG/100 ML BAG IV SCH ×3 (05:34→21:37)
[2017-09-14 06:47] LABS: HEMATOCRIT 39.9 % (41.0-60); HEMOGLOBIN 13.7 gm/dL (12-16); LYMPHOCYTE ABSOLUTE 0.7 Th/cmm (1.5-3.0); MANUAL DIFF REQUIRED? YES; MEAN CELL VOLUME 88.1 fl (80-99); MEAN CORPUSCULAR HEMOGLOBIN 30.2 pg (27.0-31.0); MEAN CORPUSCULAR HGB CONC 34.3 pg (28.0-36.0); MEAN PLATELET VOLUME 7.7 fl; MONOCYTE ABSOLUTE 0.4 Th/cmm (0.3-1.0); NEUTROPHILE ABSOLUTE 12.2 Th/cmm (1.8-8.0); PLATELET COUNT 321 Th/cmm (150-400); RED BLOOD COUNT 4.53 Mil/cmm (3.80-5.80); RED CELL DISTRIBUTION WIDTH 13.6 % (11.5-20.0)
--- NOTE | 2017-09-14 06:48 | General Progress Note ---
Subjective - Review of Systems Service Date: 09/14/17 Subjective: Patient was seen and examined. less agitated. doing much better today. tolerating g-tube feeding. Will adjust rate per dietary. Continue IV fluids. No acute distress. chest congestion improved. possible aspiration pneumonia. Will continue current treatment. Spoke to Niece. Would like to keep patient here for the weekend for continued care. Objective - Results Result Diagrams: 09/11/17 05:58 09/11/17 05:58 Recent Labs: Laboratory Last Values WBC 7.2 Th/cmm (4.8-10.8) 09/11/17 05:58 RBC 3.96 Mil/cmm (3.80-5.80) 09/11/17 05:58 Hgb 11.7 gm/dL (12-16) L 09/11/17 05:58 Hct 34.8 % (41.0-60) L 09/11/17 05:58 MCV 87.8 fl (80-99) 09/11/17 05:58 MCH 29.6 pg (27.0-31.0) 09/11/17 05:58 MCHC Differential 33.7 pg (28.0-36.0) 09/11/17 05:58 RDW 13.7 % (11.5-20.0) 09/11/17 05:58 Plt Count 234 Th/cmm (150-400) 09/11/17 05:58 MPV 7.7 fl 09/11/17 05:58 Neutrophils % 68.3 % (40.0-80.0) 09/10/17 05:40 Band Neutrophils % 2 % (0-10) 09/11/17 05:58 Lymphocytes % 16.7 % (20.0-50.0) L 09/10/17 05:40 Monocytes % 13.9 % (2.0-10.0) H 09/10/17 05:40 Eosinophils % 0.7 % (0.0-5.0) 09/10/17 05:40 Basophils % 0.4 % (0.0-2.0) 09/10/17 05:40 Neutrophils (Manual) 87 % (40-80) H 09/11/17 05:58 Lymphocytes 9 % (20-50) L 09/11/17 05:58 Monocytes 2 % (2-10) 09/11/17 05:58 Platelet Estimate ADEQUATE (NORMAL) 09/11/17 05:58 PT 11.7 SECONDS (9.5-11.5) H 09/11/17 05:58 INR 1.12 (0.5-1.4) 09/11/17 05:58 Specimen Source Arterial 09/11/17 08:20 Sample Site RB 09/11/17 08:20 pH 7.45 (7.35-7.45) 09/11/17 08:20 pCO2 35.0 mmHg (35.0-45.0) 09/11/17 08:20 pO2 66.0 mmHg (80.0-100.0) L 09/11/17 08:20 HCO3 25.3 mEq/L (20.0-26.0) 09/11/17 08:20 Base Excess 0.6 mEq/L (-3.0-3.0) 09/11/17 08:20 O2 Saturation 94.0 % (92.0-100.0) 09/11/17 08:20 Franki Test POSITIVE 09/11/17 08:20 Vent Rate NA 09/11/17 08:20 Inspired O2 21 09/11/17 08:20 Tidal Volume NA 09/11/17 08:20 PEEP NA 09/11/17 08:20 Pressure (ins/psv/peep) NA 09/11/17 08:20 Critical Value SANDEEP CAMPOS 09/11/17 08:20 Sodium 139 mEq/L (136-145) 09/11/17 05:58 Potassium 4.1 mEq/L (3.5-5.1) 09/11/17 05:58 Chloride 109 mEq/L (98-107) H 09/11/17 05:58 Carbon Dioxide 23.6 mEq/L (21.0-31.0) 09/11/17 05:58 Anion Gap 10.5 (7.0-16.0) 09/11/17 05:58 BUN 37 mg/dL (7-25) H 09/11/17 05:58 Creatinine 0.9 mg/dL (0.7-1.3) 09/11/17 05:58 Est GFR ( Amer) TNP 09/11/17 05:58 Est GFR (Non-Af Amer) TNP 09/11/17 05:58 BUN/Creatinine Ratio 41.1 09/11/17 05:58 Glucose 160 mg/dL (70-105) H 09/11/17 05:58 POC Glucose 116 MG/DL (70 - 105) H 09/09/17 08:06 Calcium 9.6 mg/dL (8.6-10.3) 09/11/17 05:58 Total Bilirubin 0.7 mg/dL (0.3-1.0) 09/11/17 05:58 AST 15 U/L (13-39) 09/11/17 05:58 ALT 16 U/L (7-52) 09/11/17 05:58 Alkaline Phosphatase 100 U/L (34-104) 09/11/17 05:58 Troponin I 0.03 ng/mL (0.01-0.05) 09/09/17 10:15 B-Natriuretic Peptide 88.6 pg/mL (5.0-100.0) 09/10/17 05:40 Total Protein 6.3 gm/dL (6.0-8.3) 09/11/17 05:58 Albumin 3.3 gm/dL (4.2-5.5) L 09/11/17 05:58 Globulin 3.0 gm/dL 09/11/17 05:58 Albumin/Globulin Ratio 1.1 (1.0-1.8) 09/11/17 05:58 TSH 0.53 uIU/ml (0.34-5.60) 09/11/17 05:58 Helicobacter pylori Ab NEGATIVE (NEGATIVE) 09/11/17 09:50 - Physical Exam Vitals and I&O: Vital Signs Temp 98.5 F 09/14/17 04:28 Pulse 82 09/14/17 04:28 Resp 16 09/14/17 04:28 BP 126/72 09/14/17 04:28 Pulse Ox 97 09/14/17 04:28 Intake & Output 09/13/17 09/13/17 09/14/17 06:59 18:59 06:59 Intake Total 850 1050 100 Balance 850 1050 100 Weight (lbs) 59.477 kg Intake: Intake, IV Amount 200 1050 100 D5-0.45NS 1,000 ml @ 50 950 mls/hr IV .Q20H [facility] Rx#: [id number] metroNIDAZOLE 500mg/NS 200 100 100 100mL 500 mg In 100 ml @ 100 mls/hr IV Q8HR [facility] Rx #:[id number] Tube Feeding 650 Other: # Bowel Movements 0 Weight Source Bedscale Active Medications: Current Medications Acetaminophen (Tylenol) 650 mg GT Q4H PRN PRN Reason: Mild pain, temp above 100 Stop: 11/07/17 22:07 Al Hydrox/Mg Hydrox/Simethicone (Maalox) 30 ml GT Q4HR PRN PRN Reason: GI distress Stop: 11/07/17 22:12 Albuterol/Ipratropium (Duoneb Neb) 3 ml HHN Q4H PRN PRN Reason: Wheezing Stop: 11/07/17 19:41 Last Admin: 09/09/17 07:34 Dose: 3 ml Albuterol/Ipratropium (Duoneb Neb) [id number] [facility] Stop: 11/09/17 14:59 Last Admin: 09/13/17 18:48 Dose: 3 ml Amlodipine Besylate (Norvasc) [address] [facility] Stop: 11/12/17 20:44 Ascorbic Acid (Vitamin C) [address] [facility] Stop: 11/12/17 20:45 Budesonide (Pulmicort) 0.[address] [facility] Stop: 11/09/17 18:59 Last Admin: 09/13/17 18:48 Dose: 0.5 mg Donepezil HCl (Aricept) [address] [facility] Stop: 11/12/17 20:48 Last Admin: 09/13/17 21:54 Dose: 10 mg Levofloxacin (Levaquin Pb) 250 mg in 50 mls @ 50 mls/hr IV Q24HR [facility] Stop: 11/09/17 08:59 Last Admin: 09/13/17 08:21 Dose: 50 mls/hr Dextrose/Sodium Chloride (D5-0.45ns) 1,000 mls @ 50 mls/hr IV .Q20H [facility] Stop: 11/09/17 08:14 Last Admin: 09/13/17 12:18 Dose: 50 mls/hr Metronidazole (Flagyl) 500 mg in 100 mls @ 100 mls/hr IV Q8HR [facility] Stop: 11/09/17 12:59 Last Admin: 09/14/17 05:34 Dose: 100 mls/hr Latanoprost (Xalatan 0.005% Ophth Soln) 1 drop EACH EYE HS ANG Stop: 11/08/17 20:59 Last Admin: 09/13/17 21:55 Dose: Not Given Lorazepam (Ativan) 1 mg GT Q6HR PRN; Protocol PRN Reason: Agitation Stop: 11/11/17 11:14 Last Admin: 09/14/17 02:28 Dose: 1 mg Losartan Potassium (Cozaar) 50 mg GT DAILY ANG Stop: 11/12/17 20:46 Magnesium Hydroxide (Milk Of Magnesia) 30 ml PO HS PRN PRN Reason: Constipation Stop: 11/07/17 22:20 Memantine (Namenda) 5 mg GT DAILY ANG Stop: 11/12/17 20:53 Methylprednisolone Sodium Succinate (Solu-Medrol) 80 mg IVP Q12HR ANG Stop: 11/09/17 08:59 Last Admin: 09/13/17 21:54 Dose: 80 mg Multivitamins/Vitamin C (Theragran) 1 tab GT DAILY ANG Stop: 11/12/17 20:54 Olanzapine (Zyprexa) 5 mg GT HS ANG PRN Reason: Protocol Stop: 11/12/17 20:54 Olanzapine (Zyprexa) 2.5 mg GT DAILY ANG PRN Reason: Protocol Stop: 11/12/17 20:55 Tamsulosin HCl (Flomax) 0.4 mg GT HS ANG Stop: 11/12/17 20:55 Last Admin: 09/13/17 21:54 Dose: 0.4 mg Zolpidem Tartrate (Ambien) 5 mg GT HS PRN PRN Reason: Insomnia Stop: 11/07/17 22:26 Last Admin: 09/14/17 01:16 Dose: 5 mg General: Alert HEENT: Atraumatic, PERRLA, EOMI Cardiovascular: Regular rate, Normal S1, Normal S2 Lungs: Other (rhonchi) Abdomen: Bowel sounds, Soft Extremities: Edema, no Clubbing, no Cyanosis Neurological: Normal gait Skin: no Rash Psych/Mental Status: Other (dementia) - Procedures Procedures: Procedures Procedure Code Date EGD PLACE GASTROSTOMY TUBE 17481 09/08/17 INSERTION OF FEEDING DEVICE INTO STOMACH, PERC APPROACH [id number] 09/08/17 Assessment/Plan - Assessment Assessment: leukocytosis pneumonia vs aspiration PNA htn bph glaucoma anemia dementia psychosis prerenal azotemia improving. s/p g-tube placement - Plan Plan: cbc cmp pulmonary consult id consult psyche consult levofloxacin 500mg IV daily Flagyl 500mg IV q8 gentle hydration gtube feeing per dietary Nutritional Asmnt/Malnutr-PDOC - Dietary Evaluation Malnutrition Findings (Please click <Entered> for more info): Nutritional Asmnt/Malnutrition Start: 09/10/17 18: 01 Text: Status: Complete Freq: Document 09/10/17 18:01 [facility] (Rec: 09/10/17 18:12 HEN [email or web address]) Nutritional Asmnt/Malnutrition Patient General Information Nutritional Screening High Risk Diagnosis PNA Pertinent Medical Hx/Surgical Hx PNA Subjective Information Pt seen sleeping at time of visit. Per nurse, pt failed swallow eval this morning. ST recommended strict NPO. MD may order PEG placement tommorrow . Current Diet Order/ Nutrition Support NPO Pertinent Medications vit C, D5-0.45ns, levaquin, theragran Pertinent Labs 09/10 BUN 32 Nutritional Hx/Data Height 1.73 m Height (Calculated Centimeters) 172.7 Current Weight (lbs) 70.307 kg Weight (Calculated Kilograms) 70.3 Weight (Calculated Grams) 90677.8 [place] Body Weight 154 Body Mass Index (BMI) 23.6 Weight Status Approriate GI Symptoms GI Symptoms None Last BM 09/08 Difficult in: Swallowing Skin Integrity/Comment: reddened to lower back scabs on both feet Estimated Nutritional Goals BEE in Kcals: Using Current wt Calories/Kcals/Kg 23-27 Kcals Calculated 1614-1708 Protein: Using Current wt Protein g/k-1.2 Protein Calculated 63-74 Fluid: ml 1610-1890ml (1ml/kcal) Nutritional Problem 1. Problem Problem inadequate energy intake Etiology pt failed swallow eval Signs/Symptoms: pt on NPO and need alternative nutrition route Intervention/Recommendation Comments 1. Monitor NPO status. 2. If TF needed, recommend initiating Fibersource HN at 20ml/hr for first 24hr, increase 10ml/hr q12hr to goal rate of 55ml/hr continuous. It provides 1584kcal, 71g protein, 1069ml free water, meeting 100% of nutritional needs. 3. Monitor TF rate, tolerance, wt weekly, skin integrity and labs 4. F/U as high risk in 2-3 days, 09/12-09/13 Expected Outcomes/Goals Expected Outcomes/Goals 1. Pt to meet at least 75% of nutritional needs via nutrition support with tolerance 2. Wt stability, skin to remain intact, labs to approach WNL.
[2017-09-14 06:55] LABS: WHITE BLOOD COUNT 13.3 Th/cmm (4.8-10.8)
[2017-09-14 07:06] LABS: ALB/GLOB RATIO 1.4 (1.0-1.8); ALBUMIN 3.3 gm/dL (4.2-5.5); ALKALINE PHOSPHATASE 97 U/L (34-104); ANION GAP 10.6 (7.0-16.0); BILIRUBIN,TOTAL 0.6 mg/dL (0.3-1.0); BUN - UREA NITROGEN 32 mg/dL (7-25); CALCIUM SERUM 9.3 mg/dL (8.6-10.3); CARBON DIOXIDE 26.3 mEq/L (21.0-31.0); CHLORIDE 108 mEq/L (98-107); CREATININE - SERUM 0.7 mg/dL (0.7-1.3); GLUCOSE 187 mg/dL (70-105); POTASSIUM SERUM 3.9 mEq/L (3.5-5.1); SGOT 13 U/L (13-39); SGPT/ALT 16 U/L (7-52); SODIUM SERUM 141 mEq/L (136-145); TOTAL PROTEIN,SERUM 5.7 gm/dL (6.0-8.3)
[2017-09-14] MEDS: Budesonide 0.5 Mg/2 mL Ud HHN SCH ×2 (07:23→18:35)
[2017-09-14] MEDS: Albuterol/Ipratropium Neb 3 ML AERS HHN SCH ×4 (07:23→18:35)
[2017-09-14 07:29] LABS: BAND NEUTROPHILE 1 % (0-10); LYMPHOCYTE 4 % (20-50); MONOCYTE 5 % (2-10); NEUTROPHILS 90 % (40-80); PLATELET ESTIMATE ADEQUATE (NORMAL); TOTAL CELLS COUNTED 100
[2017-09-14] MEDS: Levofloxacin 250mg/50mL 250 MG/50 ML BAG IV SCH (08:29)
[2017-09-14] MEDS: Multivitamin Tab GT SCH (08:31)
--- NOTE | 2017-09-14 10:23 | Diagnostic Imaging Report ---
Exam: Portable summation of chest. HISTORY: Pneumonia. Findings: Portable examination of the chest at 0809 hours reviewed and compared to prior study 09/09/2017 demonstrates decrease in bibasal pneumonia. The costophrenic angles are clear. Mediastinal structures midline bony thorax intact. Healed fracture left mid clavicle appreciated. The aortic arch calcified. IMPRESSION: Decreasing basilar infiltrates bilaterally. COPD changes. Follow-up examination is recommended.
[2017-09-14] MEDS: D5-0.45NS 1,000 ML IV SCH (12:49)
--- NOTE | 2017-09-14 18:38 | Progress Notes ---
DATE: 09/14/2017 PROBLEM LIST: 1. Aspiration pneumonia. 2. Questionable COPD. 3. Alzheimer's with underlying psychosis. SYMPTOMS: The patient opens eyes, snoring, no respiratory distress, etc. PHYSICAL EXAMINATION: VITAL SIGNS: Temperature is 97.4, blood pressure 123/79, saturations in mid 90s on room air. NECK: Veins not visualized. CHEST: Shows occasional transmitted noise, otherwise unremarkable. HEART: Regular. ABDOMEN: Soft, nontender. EXTREMITIES: Shows no peripheral edema. Chest x-ray shows slight improvement with infiltrate. LABORATORY DATA: White count is 13,000, hemoglobin 13.7 and neutrophil is 90%. ASSESSMENT: The patient is clinically improving with pneumonitis aspiration with Alzheimer's. PLANS AND SUGGESTIONS: Continue current treatment. Discharge planning should be okay by Friday or Friday. JOB# [id number]
--- NOTE | 2017-09-14 19:00 | Infectious Disease Prog Note ---
Infectious Disease Subjective - Review of Systems Service Date: 09/14/17 Subjective: No change, no fever. Infectious Disease Objective - Results Result Diagrams: 09/14/17 05:59 09/14/17 05:59 Recent Labs: Laboratory Last Values WBC 13.3 Th/cmm (4.8-10.8) H 09/14/17 05:59 RBC 4.53 Mil/cmm (3.80-5.80) 09/14/17 05:59 Hgb 13.7 gm/dL (12-16) 09/14/17 05:59 Hct 39.9 % (41.0-60) L 09/14/17 05:59 MCV 88.1 fl (80-99) 09/14/17 05:59 MCH 30.2 pg (27.0-31.0) 09/14/17 05:59 MCHC Differential 34.3 pg (28.0-36.0) 09/14/17 05:59 RDW 13.6 % (11.5-20.0) 09/14/17 05:59 Plt Count 321 Th/cmm (150-400) 09/14/17 05:59 MPV 7.7 fl 09/14/17 05:59 Neutrophils % 68.3 % (40.0-80.0) 09/10/17 05:40 Band Neutrophils % 1 % (0-10) 09/14/17 05:59 Lymphocytes % 16.7 % (20.0-50.0) L 09/10/17 05:40 Monocytes % 13.9 % (2.0-10.0) H 09/10/17 05:40 Eosinophils % 0.7 % (0.0-5.0) 09/10/17 05:40 Basophils % 0.4 % (0.0-2.0) 09/10/17 05:40 Neutrophils (Manual) 90 % (40-80) H 09/14/17 05:59 Lymphocytes 4 % (20-50) L 09/14/17 05:59 Monocytes 5 % (2-10) 09/14/17 05:59 Platelet Estimate ADEQUATE (NORMAL) 09/14/17 05:59 PT 11.7 SECONDS (9.5-11.5) H 09/11/17 05:58 INR 1.12 (0.5-1.4) 09/11/17 05:58 Specimen Source Arterial 09/11/17 08:20 Sample Site RB 09/11/17 08:20 pH 7.45 (7.35-7.45) 09/11/17 08:20 pCO2 35.0 mmHg (35.0-45.0) 09/11/17 08:20 pO2 66.0 mmHg (80.0-100.0) L 09/11/17 08:20 HCO3 25.3 mEq/L (20.0-26.0) 09/11/17 08:20 Base Excess 0.6 mEq/L (-3.0-3.0) 09/11/17 08:20 O2 Saturation 94.0 % (92.0-100.0) 09/11/17 08:20 Franki Test POSITIVE 09/11/17 08:20 Vent Rate NA 09/11/17 08:20 Inspired O2 21 09/11/17 08:20 Tidal Volume NA 09/11/17 08:20 PEEP NA 09/11/17 08:20 Pressure (ins/psv/peep) NA 09/11/17 08:20 Critical Value SANDEEP CAMPOS 09/11/17 08:20 Sodium 141 mEq/L (136-145) 09/14/17 05:59 Potassium 3.9 mEq/L (3.5-5.1) 09/14/17 05:59 Chloride 108 mEq/L (98-107) H 09/14/17 05:59 Carbon Dioxide 26.3 mEq/L (21.0-31.0) 09/14/17 05:59 Anion Gap 10.6 (7.0-16.0) 09/14/17 05:59 BUN 32 mg/dL (7-25) H 09/14/17 05:59 Creatinine 0.7 mg/dL (0.7-1.3) 09/14/17 05:59 Est GFR ( Amer) TNP 09/14/17 05:59 Est GFR (Non-Af Amer) TNP 09/14/17 05:59 BUN/Creatinine Ratio 45.7 09/14/17 05:59 Glucose 187 mg/dL (70-105) H 09/14/17 05:59 POC Glucose 116 MG/DL (70 - 105) H 09/09/17 08:06 Calcium 9.3 mg/dL (8.6-10.3) 09/14/17 05:59 Total Bilirubin 0.6 mg/dL (0.3-1.0) 09/14/17 05:59 AST 13 U/L (13-39) 09/14/17 05:59 ALT 16 U/L (7-52) 09/14/17 05:59 Alkaline Phosphatase 97 U/L (34-104) 09/14/17 05:59 Troponin I 0.03 ng/mL (0.01-0.05) 09/09/17 10:15 B-Natriuretic Peptide 88.6 pg/mL (5.0-100.0) 09/10/17 05:40 Total Protein 5.7 gm/dL (6.0-8.3) L 09/14/17 05:59 Albumin 3.3 gm/dL (4.2-5.5) L 09/14/17 05:59 Globulin 2.4 gm/dL 09/14/17 05:59 Albumin/Globulin Ratio 1.4 (1.0-1.8) 09/14/17 05:59 TSH 0.53 uIU/ml (0.34-5.60) 09/11/17 05:58 Helicobacter pylori Ab NEGATIVE (NEGATIVE) 09/11/17 09:50 - Physical Exam Vitals and I&O: Vital Signs Temp 98.4 F 09/14/17 16:00 Pulse 88 09/14/17 16:00 Resp 18 09/14/17 16:00 BP 123/78 09/14/17 16:00 Pulse Ox 99 09/14/17 16:00 Intake & Output 09/13/17 09/14/17 09/14/17 18:59 06:59 18:59 Intake Total 5094 777 3000.333 Balance 0549 890 7757.333 Weight (lbs) 59.421 kg Intake: Intake, IV Amount 3103 837 9759.333 D5-0.45NS 1,000 ml @ 50 950 1273.333 mls/hr IV .Q20H ANG Rx#: [id number] Levofloxacin 250mg/50mL 50 50 250 mg In 50 ml @ 50 mls/ hr IV Q24HR ANG Rx#: [id number] metroNIDAZOLE 500mg/NS 100 200 100 100mL 500 mg In 100 ml @ 100 mls/hr IV Q8HR [facility] Rx #:[id number] Other: # Voids 5 # Bowel Movements 1 Stool Characteristics Soft Brown Weight Source Bedscale Active Medications: Current Medications Acetaminophen (Tylenol) 650 mg GT Q4H PRN PRN Reason: Mild pain, temp above 100 Stop: 11/07/17 22:07 Al Hydrox/Mg Hydrox/Simethicone (Maalox) 30 ml GT Q4HR PRN PRN Reason: GI distress Stop: 11/07/17 22:12 Albuterol/Ipratropium (Duoneb Neb) 3 ml HHN Q4H PRN PRN Reason: Wheezing Stop: 11/07/17 19:41 Last Admin: 09/09/17 07:34 Dose: 3 ml Albuterol/Ipratropium (Duoneb Neb) 3 ml HHN [id number] [facility] Stop: 11/09/17 14:59 Last Admin: 09/14/17 18:35 Dose: 3 ml Amlodipine Besylate (Norvasc) 5 mg GT DAILY [facility] Stop: 11/12/17 20:44 Last Admin: 09/14/17 08:29 Dose: 5 mg Ascorbic Acid (Vitamin C) 500 mg GT DAILY [facility] Stop: 11/12/17 20:45 Last Admin: 09/14/17 08:29 Dose: 500 mg Budesonide (Pulmicort) 0.5 mg HHN BIDRT [facility] Stop: 11/09/17 18:59 Last Admin: 09/14/17 18:35 Dose: 0.5 mg Donepezil HCl (Aricept) 10 mg GT HS [facility] Stop: 11/12/17 20:48 Last Admin: 09/13/17 21:54 Dose: 10 mg Levofloxacin (Levaquin Pb) 250 mg in 50 mls @ 50 mls/hr IV Q24HR [facility] Stop: 11/09/17 08:59 Last Infusion: 09/14/17 18:18 Dose: Infused Dextrose/Sodium Chloride (D5-0.45ns) 1,000 mls @ 50 mls/hr IV .Q20H [facility] Stop: 11/09/17 08:14 Last Infusion: 09/14/17 18:17 Dose: 50 mls/hr Metronidazole (Flagyl) 500 mg in 100 mls @ 100 mls/hr IV Q8HR [facility] Stop: 11/09/17 12:59 Last Infusion: 09/14/17 16:02 Dose: Infused Latanoprost (Xalatan 0.005% Ophth Soln) 1 drop EACH EYE HS ANG Stop: 11/08/17 20:59 Last Admin: 09/13/17 21:55 Dose: Not Given Lorazepam (Ativan) 1 mg GT Q6HR PRN; Protocol PRN Reason: Agitation Stop: 11/11/17 11:14 Last Admin: 09/14/17 02:28 Dose: 1 mg Losartan Potassium (Cozaar) 50 mg GT DAILY ANG Stop: 11/12/17 20:46 Last Admin: 09/14/17 08:30 Dose: 50 mg Magnesium Hydroxide (Milk Of Magnesia) 30 ml PO HS PRN PRN Reason: Constipation Stop: 11/07/17 22:20 Memantine (Namenda) 5 mg GT DAILY ANG Stop: 11/12/17 20:53 Last Admin: 09/14/17 08:31 Dose: 5 mg Methylprednisolone Sodium Succinate (Solu-Medrol) 80 mg IVP Q12HR ANG Stop: 11/09/17 08:59 Last Admin: 09/14/17 08:31 Dose: 80 mg Multivitamins/Vitamin C (Theragran) 1 tab GT DAILY ANG Stop: 11/12/17 20:54 Last Admin: 09/14/17 08:31 Dose: 1 tab Olanzapine (Zyprexa) 5 mg GT HS ANG PRN Reason: Protocol Stop: 11/12/17 20:54 Olanzapine (Zyprexa) 2.5 mg GT DAILY ANG PRN Reason: Protocol Stop: 11/12/17 20:55 Last Admin: 09/14/17 08:31 Dose: 2.5 mg Tamsulosin HCl (Flomax) 0.4 mg GT HS ANG Stop: 11/12/17 20:55 Last Admin: 09/13/17 21:54 Dose: 0.4 mg Zolpidem Tartrate (Ambien) 5 mg GT HS PRN PRN Reason: Insomnia Stop: 11/07/17 22:26 Last Admin: 09/14/17 01:16 Dose: 5 mg General: no acute distress, well developed, well nourished HEENT: atraumatic, normocephalic, PERRLA, EOMI Neck: supple, no thyromegaly Cardiovascular: S1S2, regular Lungs: clear to auscultation bilaterally, clear to percussion Abdomen: soft, no tender, no distended, no rebound Extremities: no cyanosis, no clubbing, no edema Neurological: awake, alert, oriented Skin: intact - Procedures Procedures: Procedures Procedure Code Date EGD PLACE GASTROSTOMY TUBE 43563 09/08/17 INSERTION OF FEEDING DEVICE INTO STOMACH, PERC APPROACH [id number] 09/08/17 Infectious Disease Assmt/Plan - Assessment Assessment: 1. Pneumonia. 2. Dementia. 3. Psychosis. 4. Anemia. 5. Benign prostatic hypertrophy. 6. Hypertension. 7. Glaucoma. 8. Prerenal azotemia. - Plan Plan: Continue Levaquin. Nutritional Asmnt/Malnutr-PDOC - Dietary Evaluation Malnutrition Findings (Please click <Entered> for more info): Nutritional Asmnt/Malnutrition Start: 09/10/17 18: 01 Text: Status: Complete Freq: Document 09/10/17 18:01 JELLY (Rec: 09/10/17 18:12 [email or web address] Nutritional Asmnt/Malnutrition Patient General Information Nutritional Screening High Risk Diagnosis PNA Pertinent Medical Hx/Surgical Hx PNA Subjective Information Pt seen sleeping at time of visit. Per nurse, pt failed swallow eval this morning. ST recommended strict NPO. MD may order PEG placement tommorrow . Current Diet Order/ Nutrition Support NPO Pertinent Medications vit C, D5-0.45ns, levaquin, theragran Pertinent Labs 09/10 BUN 32 Nutritional Hx/Data Height 1.73 m Height (Calculated Centimeters) 172.7 Current Weight (lbs) 70.307 kg Weight (Calculated Kilograms) 70.3 Weight (Calculated Grams) 02095.8 [place] Body Weight 154 Body Mass Index (BMI) 23.6 Weight Status Approriate GI Symptoms GI Symptoms None Last BM 09/08 Difficult in: Swallowing Skin Integrity/Comment: reddened to lower back scabs on both feet Estimated Nutritional Goals BEE in Kcals: Using Current wt Calories/Kcals/Kg 23-27 Kcals Calculated 1000-6096 Protein: Using Current wt Protein g/k-1.2 Protein Calculated 63-74 Fluid: ml 1610-1890ml (1ml/kcal) Nutritional Problem 1. Problem Problem inadequate energy intake Etiology pt failed swallow eval Signs/Symptoms: pt on NPO and need alternative nutrition route Intervention/Recommendation Comments 1. Monitor NPO status. 2. If TF needed, recommend initiating Fibersource HN at 20ml/hr for first 24hr, increase 10ml/hr q12hr to goal rate of 55ml/hr continuous. It provides 1584kcal, 71g protein, 1069ml free water, meeting 100% of nutritional needs. 3. Monitor TF rate, tolerance, wt weekly, skin integrity and labs 4. F/U as high risk in 2-3 days, 09/12-09/13 Expected Outcomes/Goals Expected Outcomes/Goals 1. Pt to meet at least 75% of nutritional needs via nutrition support with tolerance 2. Wt stability, skin to remain intact, labs to approach WNL.
--- NOTE | 2017-09-14 19:02 | Infectious Disease Prog Note ---
Infectious Disease Subjective - Review of Systems Service Date: 09/14/17 Subjective: No change, no fever. Infectious Disease Objective - Results Result Diagrams: 09/14/17 05:59 09/14/17 05:59 Recent Labs: Laboratory Last Values WBC 13.3 Th/cmm (4.8-10.8) H 09/14/17 05:59 RBC 4.53 Mil/cmm (3.80-5.80) 09/14/17 05:59 Hgb 13.7 gm/dL (12-16) 09/14/17 05:59 Hct 39.9 % (41.0-60) L 09/14/17 05:59 MCV 88.1 fl (80-99) 09/14/17 05:59 MCH 30.2 pg (27.0-31.0) 09/14/17 05:59 MCHC Differential 34.3 pg (28.0-36.0) 09/14/17 05:59 RDW 13.6 % (11.5-20.0) 09/14/17 05:59 Plt Count 321 Th/cmm (150-400) 09/14/17 05:59 MPV 7.7 fl 09/14/17 05:59 Neutrophils % 68.3 % (40.0-80.0) 09/10/17 05:40 Band Neutrophils % 1 % (0-10) 09/14/17 05:59 Lymphocytes % 16.7 % (20.0-50.0) L 09/10/17 05:40 Monocytes % 13.9 % (2.0-10.0) H 09/10/17 05:40 Eosinophils % 0.7 % (0.0-5.0) 09/10/17 05:40 Basophils % 0.4 % (0.0-2.0) 09/10/17 05:40 Neutrophils (Manual) 90 % (40-80) H 09/14/17 05:59 Lymphocytes 4 % (20-50) L 09/14/17 05:59 Monocytes 5 % (2-10) 09/14/17 05:59 Platelet Estimate ADEQUATE (NORMAL) 09/14/17 05:59 PT 11.7 SECONDS (9.5-11.5) H 09/11/17 05:58 INR 1.12 (0.5-1.4) 09/11/17 05:58 Specimen Source Arterial 09/11/17 08:20 Sample Site RB 09/11/17 08:20 pH 7.45 (7.35-7.45) 09/11/17 08:20 pCO2 35.0 mmHg (35.0-45.0) 09/11/17 08:20 pO2 66.0 mmHg (80.0-100.0) L 09/11/17 08:20 HCO3 25.3 mEq/L (20.0-26.0) 09/11/17 08:20 Base Excess 0.6 mEq/L (-3.0-3.0) 09/11/17 08:20 O2 Saturation 94.0 % (92.0-100.0) 09/11/17 08:20 Franki Test POSITIVE 09/11/17 08:20 Vent Rate NA 09/11/17 08:20 Inspired O2 21 09/11/17 08:20 Tidal Volume NA 09/11/17 08:20 PEEP NA 09/11/17 08:20 Pressure (ins/psv/peep) NA 09/11/17 08:20 Critical Value SANDEEP CAMPOS 09/11/17 08:20 Sodium 141 mEq/L (136-145) 09/14/17 05:59 Potassium 3.9 mEq/L (3.5-5.1) 09/14/17 05:59 Chloride 108 mEq/L (98-107) H 09/14/17 05:59 Carbon Dioxide 26.3 mEq/L (21.0-31.0) 09/14/17 05:59 Anion Gap 10.6 (7.0-16.0) 09/14/17 05:59 BUN 32 mg/dL (7-25) H 09/14/17 05:59 Creatinine 0.7 mg/dL (0.7-1.3) 09/14/17 05:59 Est GFR ( Amer) TNP 09/14/17 05:59 Est GFR (Non-Af Amer) TNP 09/14/17 05:59 BUN/Creatinine Ratio 45.7 09/14/17 05:59 Glucose 187 mg/dL (70-105) H 09/14/17 05:59 POC Glucose 116 MG/DL (70 - 105) H 09/09/17 08:06 Calcium 9.3 mg/dL (8.6-10.3) 09/14/17 05:59 Total Bilirubin 0.6 mg/dL (0.3-1.0) 09/14/17 05:59 AST 13 U/L (13-39) 09/14/17 05:59 ALT 16 U/L (7-52) 09/14/17 05:59 Alkaline Phosphatase 97 U/L (34-104) 09/14/17 05:59 Troponin I 0.03 ng/mL (0.01-0.05) 09/09/17 10:15 B-Natriuretic Peptide 88.6 pg/mL (5.0-100.0) 09/10/17 05:40 Total Protein 5.7 gm/dL (6.0-8.3) L 09/14/17 05:59 Albumin 3.3 gm/dL (4.2-5.5) L 09/14/17 05:59 Globulin 2.4 gm/dL 09/14/17 05:59 Albumin/Globulin Ratio 1.4 (1.0-1.8) 09/14/17 05:59 TSH 0.53 uIU/ml (0.34-5.60) 09/11/17 05:58 Helicobacter pylori Ab NEGATIVE (NEGATIVE) 09/11/17 09:50 - Physical Exam Vitals and I&O: Vital Signs Temp 98.4 F 09/14/17 16:00 Pulse 88 09/14/17 16:00 Resp 18 09/14/17 16:00 BP 123/78 09/14/17 16:00 Pulse Ox 99 09/14/17 16:00 Intake & Output 09/14/17 09/14/17 09/15/17 06:59 18:59 06:59 Intake Total 200 1423.333 Balance 200 1423.333 Weight (lbs) 59.421 kg Intake: Intake, IV Amount 200 1423.333 D5-0.45NS 1,000 ml @ 50 1273.333 mls/hr IV .Q20H ANG Rx#: [id number] Levofloxacin 250mg/50mL 50 250 mg In 50 ml @ 50 mls/ hr IV Q24HR ANG Rx#: [id number] metroNIDAZOLE 500mg/NS 200 100 100mL 500 mg In 100 ml @ 100 mls/hr IV Q8HR ANG Rx #:[id number] Other: # Voids 5 # Bowel Movements 1 Stool Characteristics Soft Brown Weight Source Bedscale Active Medications: Current Medications Acetaminophen (Tylenol) 650 mg GT Q4H PRN PRN Reason: Mild pain, temp above 100 Stop: 11/07/17 22:07 Al Hydrox/Mg Hydrox/Simethicone (Maalox) 30 ml GT Q4HR PRN PRN Reason: GI distress Stop: 11/07/17 22:12 Albuterol/Ipratropium (Duoneb Neb) 3 ml HHN Q4H PRN PRN Reason: Wheezing Stop: 11/07/17 19:41 Last Admin: 09/09/17 07:34 Dose: 3 ml Albuterol/Ipratropium (Duoneb Neb) 3 ml HHN [id number] Stop: 11/09/17 14:59 Last Admin: 09/14/17 18:35 Dose: 3 ml Amlodipine Besylate (Norvasc) 5 mg GT DAILY [facility] Stop: 11/12/17 20:44 Last Admin: 09/14/17 08:29 Dose: 5 mg Ascorbic Acid (Vitamin C) 500 mg GT DAILY [facility] Stop: 11/12/17 20:45 Last Admin: 09/14/17 08:29 Dose: 500 mg Budesonide (Pulmicort) 0.5 mg HHN BIDRT [facility] Stop: 11/09/17 18:59 Last Admin: 09/14/17 18:35 Dose: 0.5 mg Donepezil HCl (Aricept) 10 mg GT HS [facility] Stop: 11/12/17 20:48 Last Admin: 09/13/17 21:54 Dose: 10 mg Levofloxacin (Levaquin Pb) 250 mg in 50 mls @ 50 mls/hr IV Q24HR [facility] Stop: 11/09/17 08:59 Last Infusion: 09/14/17 18:18 Dose: Infused Dextrose/Sodium Chloride (D5-0.45ns) 1,000 mls @ 50 mls/hr IV .Q20H [facility] Stop: 11/09/17 08:14 Last Infusion: 09/14/17 18:17 Dose: 50 mls/hr Metronidazole (Flagyl) 500 mg in 100 mls @ 100 mls/hr IV Q8HR [facility] Stop: 11/09/17 12:59 Last Infusion: 09/14/17 16:02 Dose: Infused Latanoprost (Xalatan 0.005% Ophth Soln) 1 drop EACH EYE HS ANG Stop: 11/08/17 20:59 Last Admin: 09/13/17 21:55 Dose: Not Given Lorazepam (Ativan) 1 mg GT Q6HR PRN; Protocol PRN Reason: Agitation Stop: 11/11/17 11:14 Last Admin: 09/14/17 02:28 Dose: 1 mg Losartan Potassium (Cozaar) 50 mg GT DAILY ANG Stop: 11/12/17 20:46 Last Admin: 09/14/17 08:30 Dose: 50 mg Magnesium Hydroxide (Milk Of Magnesia) 30 ml PO HS PRN PRN Reason: Constipation Stop: 11/07/17 22:20 Memantine (Namenda) 5 mg GT DAILY ANG Stop: 11/12/17 20:53 Last Admin: 09/14/17 08:31 Dose: 5 mg Methylprednisolone Sodium Succinate (Solu-Medrol) 80 mg IVP Q12HR ANG Stop: 11/09/17 08:59 Last Admin: 09/14/17 08:31 Dose: 80 mg Multivitamins/Vitamin C (Theragran) 1 tab GT DAILY ANG Stop: 11/12/17 20:54 Last Admin: 09/14/17 08:31 Dose: 1 tab Olanzapine (Zyprexa) 5 mg GT HS ANG PRN Reason: Protocol Stop: 11/12/17 20:54 Olanzapine (Zyprexa) 2.5 mg GT DAILY ANG PRN Reason: Protocol Stop: 11/12/17 20:55 Last Admin: 09/14/17 08:31 Dose: 2.5 mg Tamsulosin HCl (Flomax) 0.4 mg GT HS ANG Stop: 11/12/17 20:55 Last Admin: 09/13/17 21:54 Dose: 0.4 mg Zolpidem Tartrate (Ambien) 5 mg GT HS PRN PRN Reason: Insomnia Stop: 11/07/17 22:26 Last Admin: 09/14/17 01:16 Dose: 5 mg General: no acute distress HEENT: atraumatic, normocephalic, PERRLA, EOMI, moist mucous membrane Neck: supple, no thyromegaly Cardiovascular: S1S2, regular Lungs: clear to percussion, crackles Abdomen: soft, bowel sounds, no tender, no distended, no rebound Extremities: no cyanosis, no clubbing, no edema Skin: intact - Procedures Procedures: Procedures Procedure Code Date EGD PLACE GASTROSTOMY TUBE 45582 09/08/17 INSERTION OF FEEDING DEVICE INTO STOMACH, PERC APPROACH [id number] 09/08/17 Infectious Disease Assmt/Plan - Assessment Assessment: 1. Pneumonia. 2. Dementia. 3. Psychosis. 4. Anemia. 5. Benign prostatic hypertrophy. 6. Hypertension. 7. Glaucoma. 8. Prerenal azotemia. - Plan Plan: Continue Levaquin. Nutritional Asmnt/Malnutr-PDOC - Dietary Evaluation Malnutrition Findings (Please click <Entered> for more info): Nutritional Asmnt/Malnutrition Start: 09/10/17 18: 01 Text: Status: Complete Freq: Document 09/10/17 18:01 JELLY (Rec: 09/10/17 18:12 K[email or web address]) Nutritional Asmnt/Malnutrition Patient General Information Nutritional Screening High Risk Diagnosis PNA Pertinent Medical Hx/Surgical Hx PNA Subjective Information Pt seen sleeping at time of visit. Per nurse, pt failed swallow eval this morning. ST recommended strict NPO. MD may order PEG placement tommorrow . Current Diet Order/ Nutrition Support NPO Pertinent Medications vit C, D5-0.45ns, levaquin, theragran Pertinent Labs 09/10 BUN 32 Nutritional Hx/Data Height 1.73 m Height (Calculated Centimeters) 172.7 Current Weight (lbs) 70.307 kg Weight (Calculated Kilograms) 70.3 Weight (Calculated Grams) 24172.8 [place] Body Weight 154 Body Mass Index (BMI) 23.6 Weight Status Approriate GI Symptoms GI Symptoms None Last BM 09/08 Difficult in: Swallowing Skin Integrity/Comment: reddened to lower back scabs on both feet Estimated Nutritional Goals BEE in Kcals: Using Current wt Calories/Kcals/Kg 23-27 Kcals Calculated 3746-6299 Protein: Using Current wt Protein g/k-1.2 Protein Calculated 63-74 Fluid: ml 1610-1890ml (1ml/kcal) Nutritional Problem 1. Problem Problem inadequate energy intake Etiology pt failed swallow eval Signs/Symptoms: pt on NPO and need alternative nutrition route Intervention/Recommendation Comments 1. Monitor NPO status. 2. If TF needed, recommend initiating Fibersource HN at 20ml/hr for first 24hr, increase 10ml/hr q12hr to goal rate of 55ml/hr continuous. It provides 1584kcal, 71g protein, 1069ml free water, meeting 100% of nutritional needs. 3. Monitor TF rate, tolerance, wt weekly, skin integrity and labs 4. F/U as high risk in 2-3 days, 09/12-09/13 Expected Outcomes/Goals Expected Outcomes/Goals 1. Pt to meet at least 75% of nutritional needs via nutrition support with tolerance 2. Wt stability, skin to remain intact, labs to approach WNL.
[2017-09-15] MEDS: metroNIDAZOLE 500mg/NS 100mL 500 MG/100 ML BAG IV SCH ×3 (05:30→20:39)
[2017-09-15] MEDS: Albuterol/Ipratropium Neb 3 ML AERS HHN SCH ×4 (07:38→18:53)
[2017-09-15] MEDS: Budesonide 0.5 Mg/2 mL Ud HHN SCH ×2 (07:38→19:29)
--- NOTE | 2017-09-15 07:40 | General Progress Note ---
Subjective - Review of Systems Service Date: 09/15/17 Subjective: Patient was seen and examined. less agitated. doing much better today. tolerating g-tube feeding. Will adjust rate per dietary. Continue IV fluids. No acute distress. chest congestion improved. possible aspiration pneumonia. Will continue current treatment. Spoke to Niece. Would like to keep patient here for the weekend for continued care. Objective - Results Result Diagrams: 09/14/17 05:59 09/14/17 05:59 Recent Labs: Laboratory Last Values WBC 13.3 Th/cmm (4.8-10.8) H 09/14/17 05:59 RBC 4.53 Mil/cmm (3.80-5.80) 09/14/17 05:59 Hgb 13.7 gm/dL (12-16) 09/14/17 05:59 Hct 39.9 % (41.0-60) L 09/14/17 05:59 MCV 88.1 fl (80-99) 09/14/17 05:59 MCH 30.2 pg (27.0-31.0) 09/14/17 05:59 MCHC Differential 34.3 pg (28.0-36.0) 09/14/17 05:59 RDW 13.6 % (11.5-20.0) 09/14/17 05:59 Plt Count 321 Th/cmm (150-400) 09/14/17 05:59 MPV 7.7 fl 09/14/17 05:59 Neutrophils % 68.3 % (40.0-80.0) 09/10/17 05:40 Band Neutrophils % 1 % (0-10) 09/14/17 05:59 Lymphocytes % 16.7 % (20.0-50.0) L 09/10/17 05:40 Monocytes % 13.9 % (2.0-10.0) H 09/10/17 05:40 Eosinophils % 0.7 % (0.0-5.0) 09/10/17 05:40 Basophils % 0.4 % (0.0-2.0) 09/10/17 05:40 Neutrophils (Manual) 90 % (40-80) H 09/14/17 05:59 Lymphocytes 4 % (20-50) L 09/14/17 05:59 Monocytes 5 % (2-10) 09/14/17 05:59 Platelet Estimate ADEQUATE (NORMAL) 09/14/17 05:59 PT 11.7 SECONDS (9.5-11.5) H 09/11/17 05:58 INR 1.12 (0.5-1.4) 09/11/17 05:58 Specimen Source Arterial 09/11/17 08:20 Sample Site RB 09/11/17 08:20 pH 7.45 (7.35-7.45) 09/11/17 08:20 pCO2 35.0 mmHg (35.0-45.0) 09/11/17 08:20 pO2 66.0 mmHg (80.0-100.0) L 09/11/17 08:20 HCO3 25.3 mEq/L (20.0-26.0) 09/11/17 08:20 Base Excess 0.6 mEq/L (-3.0-3.0) 09/11/17 08:20 O2 Saturation 94.0 % (92.0-100.0) 09/11/17 08:20 Franki Test POSITIVE 09/11/17 08:20 Vent Rate NA 09/11/17 08:20 Inspired O2 21 09/11/17 08:20 Tidal Volume NA 09/11/17 08:20 PEEP NA 09/11/17 08:20 Pressure (ins/psv/peep) NA 09/11/17 08:20 Critical Value SANDEEP CAMPOS 09/11/17 08:20 Sodium 141 mEq/L (136-145) 09/14/17 05:59 Potassium 3.9 mEq/L (3.5-5.1) 09/14/17 05:59 Chloride 108 mEq/L (98-107) H 09/14/17 05:59 Carbon Dioxide 26.3 mEq/L (21.0-31.0) 09/14/17 05:59 Anion Gap 10.6 (7.0-16.0) 09/14/17 05:59 BUN 32 mg/dL (7-25) H 09/14/17 05:59 Creatinine 0.7 mg/dL (0.7-1.3) 09/14/17 05:59 Est GFR ( Amer) TNP 09/14/17 05:59 Est GFR (Non-Af Amer) TNP 09/14/17 05:59 BUN/Creatinine Ratio 45.7 09/14/17 05:59 Glucose 187 mg/dL (70-105) H 09/14/17 05:59 POC Glucose 116 MG/DL (70 - 105) H 09/09/17 08:06 Calcium 9.3 mg/dL (8.6-10.3) 09/14/17 05:59 Total Bilirubin 0.6 mg/dL (0.3-1.0) 09/14/17 05:59 AST 13 U/L (13-39) 09/14/17 05:59 ALT 16 U/L (7-52) 09/14/17 05:59 Alkaline Phosphatase 97 U/L (34-104) 09/14/17 05:59 Troponin I 0.03 ng/mL (0.01-0.05) 09/09/17 10:15 B-Natriuretic Peptide 88.6 pg/mL (5.0-100.0) 09/10/17 05:40 Total Protein 5.7 gm/dL (6.0-8.3) L 09/14/17 05:59 Albumin 3.3 gm/dL (4.2-5.5) L 09/14/17 05:59 Globulin 2.4 gm/dL 09/14/17 05:59 Albumin/Globulin Ratio 1.4 (1.0-1.8) 09/14/17 05:59 TSH 0.53 uIU/ml (0.34-5.60) 09/11/17 05:58 Helicobacter pylori Ab NEGATIVE (NEGATIVE) 09/11/17 09:50 - Physical Exam Vitals and I&O: Vital Signs Temp 98.4 F 09/15/17 04:00 Pulse 87 09/15/17 04:00 Resp 18 09/15/17 04:00 BP 122/64 09/15/17 04:00 Pulse Ox 98 09/15/17 04:00 Intake & Output 09/14/17 09/15/17 09/15/17 18:59 06:59 18:59 Intake Total 1423.333 100 Balance 1423.333 100 Weight (lbs) 59.421 kg Intake: Intake, IV Amount 1423.333 100 D5-0.45NS 1,000 ml @ 50 1273.333 mls/hr IV .Q20H [facility] Rx#: [id number] Levofloxacin 250mg/50mL 50 250 mg In 50 ml @ 50 mls/ hr IV Q24HR [facility] Rx#: [id number] metroNIDAZOLE 500mg/NS 100 100 100mL 500 mg In 100 ml @ 100 mls/hr IV Q8HR [facility] Rx #:[id number] Other: # Voids 5 # Bowel Movements 1 Stool Characteristics Soft Soft Brown Brown Weight Source Bedscale Active Medications: Current Medications Acetaminophen (Tylenol) 650 mg GT Q4H PRN PRN Reason: Mild pain, temp above 100 Stop: 11/07/17 22:07 Al Hydrox/Mg Hydrox/Simethicone (Maalox) 30 ml GT Q4HR PRN PRN Reason: GI distress Stop: 11/07/17 22:12 Albuterol/Ipratropium (Duoneb Neb) 3 ml HHN Q4H PRN PRN Reason: Wheezing Stop: 11/07/17 19:41 Last Admin: 09/09/17 07:34 Dose: 3 ml Albuterol/Ipratropium (Duoneb Neb) 3 ml HHN [id number] ANG Stop: 11/09/17 14:59 Last Admin: 09/14/17 18:35 Dose: 3 ml Amlodipine Besylate (Norvasc) 5 mg GT DAILY ANG Stop: 11/12/17 20:44 Last Admin: 09/14/17 08:29 Dose: 5 mg Ascorbic Acid (Vitamin C) 500 mg GT DAILY ANG Stop: 11/12/17 20:45 Last Admin: 09/14/17 08:29 Dose: 500 mg Budesonide (Pulmicort) 0.5 mg HHN BIDRT ANG Stop: 11/09/17 18:59 Last Admin: 09/14/17 18:35 Dose: 0.5 mg Donepezil HCl (Aricept) 10 mg GT HS [facility] Stop: 11/12/17 20:48 Last Admin: 09/14/17 21:37 Dose: 10 mg Levofloxacin (Levaquin Pb) 250 mg in 50 mls @ 50 mls/hr IV Q24HR [facility] Stop: 11/09/17 08:59 Last Infusion: 09/14/17 18:18 Dose: Infused Dextrose/Sodium Chloride (D5-0.45ns) 1,000 mls @ 50 mls/hr IV .Q20H [facility] Stop: 11/09/17 08:14 Last Infusion: 09/14/17 18:17 Dose: 50 mls/hr Metronidazole (Flagyl) 500 mg in 100 mls @ 100 mls/hr IV Q8HR ANG Stop: 11/09/17 12:59 Last Admin: 09/15/17 05:30 Dose: 100 mls/hr Latanoprost (Xalatan 0.005% Ophth Soln) 1 drop EACH EYE HS ANG Stop: 11/08/17 20:59 Last Admin: 09/14/17 21:37 Dose: Not Given Lorazepam (Ativan) 1 mg GT Q6HR PRN; Protocol PRN Reason: Agitation Stop: 11/11/17 11:14 Last Admin: 09/15/17 02:59 Dose: 1 mg Losartan Potassium (Cozaar) 50 mg GT DAILY ANG Stop: 11/12/17 20:46 Last Admin: 09/14/17 08:30 Dose: 50 mg Magnesium Hydroxide (Milk Of Magnesia) 30 ml PO HS PRN PRN Reason: Constipation Stop: 11/07/17 22:20 Memantine (Namenda) 5 mg GT DAILY ANG Stop: 11/12/17 20:53 Last Admin: 09/14/17 08:31 Dose: 5 mg Methylprednisolone Sodium Succinate (Solu-Medrol) 80 mg IVP Q12HR ANG Stop: 11/09/17 08:59 Last Admin: 09/14/17 21:35 Dose: 80 mg Multivitamins/Vitamin C (Theragran) 1 tab GT DAILY ANG Stop: 11/12/17 20:54 Last Admin: 09/14/17 08:31 Dose: 1 tab Olanzapine (Zyprexa) 5 mg GT HS ANG PRN Reason: Protocol Stop: 11/12/17 20:54 Last Admin: 09/14/17 21:36 Dose: 5 mg Olanzapine (Zyprexa) 2.5 mg GT DAILY ANG PRN Reason: Protocol Stop: 11/12/17 20:55 Last Admin: 09/14/17 08:31 Dose: 2.5 mg Tamsulosin HCl (Flomax) 0.4 mg GT HS ANG Stop: 11/12/17 20:55 Last Admin: 09/14/17 21:37 Dose: 0.4 mg Zolpidem Tartrate (Ambien) 5 mg GT HS PRN PRN Reason: Insomnia Stop: 11/07/17 22:26 Last Admin: 09/14/17 01:16 Dose: 5 mg General: Alert HEENT: Atraumatic, PERRLA, EOMI Cardiovascular: Regular rate, Normal S1, Normal S2 Lungs: Other (rhonchi) Abdomen: Bowel sounds, Soft Extremities: Edema, no Clubbing, no Cyanosis Neurological: Normal gait Skin: no Rash Psych/Mental Status: Other (dementia) - Procedures Procedures: Procedures Procedure Code Date EGD PLACE GASTROSTOMY TUBE 50832 09/08/17 INSERTION OF FEEDING DEVICE INTO STOMACH, PERC APPROACH [id number] 09/08/17 Assessment/Plan - Assessment Assessment: leukocytosis pneumonia vs aspiration PNA htn bph glaucoma anemia dementia psychosis prerenal azotemia improving. s/p g-tube placement leukocytosis - Plan Plan: repeat cbc pulmonary consult id consult psyche consult levofloxacin 500mg IV daily Flagyl 500mg IV q8 gentle hydration gtube feeing per dietary Nutritional Asmnt/Malnutr-PDOC - Dietary Evaluation Malnutrition Findings (Please click <Entered> for more info): Nutritional Asmnt/Malnutrition Start: 09/10/17 18: 01 Text: Status: Complete Freq: Document 09/10/17 18:01 KISHORE (Rec: 09/10/17 18:12 [facility] Nutritional Asmnt/Malnutrition Patient General Information Nutritional Screening High Risk Diagnosis PNA Pertinent Medical Hx/Surgical Hx PNA Subjective Information Pt seen sleeping at time of visit. Per nurse, pt failed swallow eval this morning. ST recommended strict NPO. MD may order PEG placement tommorrow . Current Diet Order/ Nutrition Support NPO Pertinent Medications vit C, D5-0.45ns, levaquin, theragran Pertinent Labs 09/10 BUN 32 Nutritional Hx/Data Height 1.73 m Height (Calculated Centimeters) 172.7 Current Weight (lbs) 70.307 kg Weight (Calculated Kilograms) 70.3 Weight (Calculated Grams) 65088.8 [place] Body Weight 154 Body Mass Index (BMI) 23.6 Weight Status Approriate GI Symptoms GI Symptoms None Last BM 09/08 Difficult in: Swallowing Skin Integrity/Comment: reddened to lower back scabs on both feet Estimated Nutritional Goals BEE in Kcals: Using Current wt Calories/Kcals/Kg 23-27 Kcals Calculated 1668-2569 Protein: Using Current wt Protein g/k-1.2 Protein Calculated 63-74 Fluid: ml 1610-1890ml (1ml/kcal) Nutritional Problem 1. Problem Problem inadequate energy intake Etiology pt failed swallow eval Signs/Symptoms: pt on NPO and need alternative nutrition route Intervention/Recommendation Comments 1. Monitor NPO status. 2. If TF needed, recommend initiating Fibersource HN at 20ml/hr for first 24hr, increase 10ml/hr q12hr to goal rate of 55ml/hr continuous. It provides 1584kcal, 71g protein, 1069ml free water, meeting 100% of nutritional needs. 3. Monitor TF rate, tolerance, wt weekly, skin integrity and labs 4. F/U as high risk in 2-3 days, 09/12-09/13 Expected Outcomes/Goals Expected Outcomes/Goals 1. Pt to meet at least 75% of nutritional needs via nutrition support with tolerance 2. Wt stability, skin to remain intact, labs to approach WNL.
[2017-09-15] MEDS ORDERED: Probiotic Screen MC PRN (08:45)
[2017-09-15 09:02] LABS: HEMATOCRIT 42.4 % (41.0-60); MEAN CORPUSCULAR HEMOGLOBIN 29.3 pg (27.0-31.0); MEAN CORPUSCULAR HGB CONC 32.9 pg (28.0-36.0); MEAN PLATELET VOLUME 7.6 fl; PLATELET COUNT 353 Th/cmm (150-400); RED BLOOD COUNT 4.77 Mil/cmm (3.80-5.80); RED CELL DISTRIBUTION WIDTH 13.7 % (11.5-20.0)
[2017-09-15] MEDS: Multivitamin Tab GT SCH (09:06)
[2017-09-15] MEDS: Lactobacillus Rhamnosus GG 15 Billion CFU CAP.SPRINK GT SCH (09:06)
[2017-09-15 09:26] LABS: MANUAL DIFF REQUIRED? YES
[2017-09-15 09:27] LABS: BAND NEUTROPHILE 3 % (0-10); LYMPHOCYTE 10 % (20-50); MONOCYTE 4 % (2-10); NEUTROPHILS 83 % (40-80); TOTAL CELLS COUNTED 100
[2017-09-15 09:29] LABS: WHITE BLOOD COUNT 21.9 Th/cmm (4.8-10.8)
[2017-09-15] MEDS: Levofloxacin 250mg/50mL 250 MG/50 ML BAG IV SCH (09:41)
[2017-09-15] MEDS: D5-0.45NS 1,000 ML IV SCH ×2 (12:44→12:45)
--- NOTE | 2017-09-15 14:28 | Infectious Disease Prog Note ---
Infectious Disease Subjective - Review of Systems Service Date: 09/15/17 Subjective: No change, no fever. Infectious Disease Objective - Results Result Diagrams: 09/16/17 08:07 09/14/17 05:59 Recent Labs: Laboratory Last Values WBC 21.9 Th/cmm (4.8-10.8) H* 09/15/17 08:15 RBC 4.77 Mil/cmm (3.80-5.80) 09/15/17 08:15 Hgb 14.0 gm/dL (12-16) 09/15/17 08:15 Hct 42.4 % (41.0-60) 09/15/17 08:15 MCV 89.0 fl (80-99) 09/15/17 08:15 MCH 29.3 pg (27.0-31.0) 09/15/17 08:15 MCHC Differential 32.9 pg (28.0-36.0) 09/15/17 08:15 RDW 13.7 % (11.5-20.0) 09/15/17 08:15 Plt Count 353 Th/cmm (150-400) 09/15/17 08:15 MPV 7.6 fl 09/15/17 08:15 Neutrophils % 68.3 % (40.0-80.0) 09/10/17 05:40 Band Neutrophils % 3 % (0-10) 09/15/17 08:15 Lymphocytes % 16.7 % (20.0-50.0) L 09/10/17 05:40 Monocytes % 13.9 % (2.0-10.0) H 09/10/17 05:40 Eosinophils % 0.7 % (0.0-5.0) 09/10/17 05:40 Basophils % 0.4 % (0.0-2.0) 09/10/17 05:40 Neutrophils (Manual) 83 % (40-80) H 09/15/17 08:15 Lymphocytes 10 % (20-50) L 09/15/17 08:15 Monocytes 4 % (2-10) 09/15/17 08:15 Platelet Estimate ADEQUATE (NORMAL) 09/14/17 05:59 PT 11.7 SECONDS (9.5-11.5) H 09/11/17 05:58 INR 1.12 (0.5-1.4) 09/11/17 05:58 Specimen Source Arterial 09/11/17 08:20 Sample Site RB 09/11/17 08:20 pH 7.45 (7.35-7.45) 09/11/17 08:20 pCO2 35.0 mmHg (35.0-45.0) 09/11/17 08:20 pO2 66.0 mmHg (80.0-100.0) L 09/11/17 08:20 HCO3 25.3 mEq/L (20.0-26.0) 09/11/17 08:20 Base Excess 0.6 mEq/L (-3.0-3.0) 09/11/17 08:20 O2 Saturation 94.0 % (92.0-100.0) 09/11/17 08:20 Franki Test POSITIVE 09/11/17 08:20 Vent Rate NA 09/11/17 08:20 Inspired O2 21 09/11/17 08:20 Tidal Volume NA 09/11/17 08:20 PEEP NA 09/11/17 08:20 Pressure (ins/psv/peep) NA 09/11/17 08:20 Critical Value SANDEEP CAMPOS 09/11/17 08:20 Sodium 141 mEq/L (136-145) 09/14/17 05:59 Potassium 3.9 mEq/L (3.5-5.1) 09/14/17 05:59 Chloride 108 mEq/L (98-107) H 09/14/17 05:59 Carbon Dioxide 26.3 mEq/L (21.0-31.0) 09/14/17 05:59 Anion Gap 10.6 (7.0-16.0) 09/14/17 05:59 BUN 32 mg/dL (7-25) H 09/14/17 05:59 Creatinine 0.7 mg/dL (0.7-1.3) 09/14/17 05:59 Est GFR ( Amer) TNP 09/14/17 05:59 Est GFR (Non-Af Amer) TNP 09/14/17 05:59 BUN/Creatinine Ratio 45.7 09/14/17 05:59 Glucose 187 mg/dL (70-105) H 09/14/17 05:59 POC Glucose 166 MG/DL (70 - 105) H 09/15/17 11:54 Calcium 9.3 mg/dL (8.6-10.3) 09/14/17 05:59 Total Bilirubin 0.6 mg/dL (0.3-1.0) 09/14/17 05:59 AST 13 U/L (13-39) 09/14/17 05:59 ALT 16 U/L (7-52) 09/14/17 05:59 Alkaline Phosphatase 97 U/L (34-104) 09/14/17 05:59 Troponin I 0.03 ng/mL (0.01-0.05) 09/09/17 10:15 B-Natriuretic Peptide 88.6 pg/mL (5.0-100.0) 09/10/17 05:40 Total Protein 5.7 gm/dL (6.0-8.3) L 09/14/17 05:59 Albumin 3.3 gm/dL (4.2-5.5) L 09/14/17 05:59 Globulin 2.4 gm/dL 09/14/17 05:59 Albumin/Globulin Ratio 1.4 (1.0-1.8) 09/14/17 05:59 TSH 0.53 uIU/ml (0.34-5.60) 09/11/17 05:58 Helicobacter pylori Ab NEGATIVE (NEGATIVE) 09/11/17 09:50 - Physical Exam Vitals and I&O: Vital Signs Temp 97.1 F 09/15/17 11:58 Pulse 88 09/15/17 12:04 Resp 20 09/15/17 12:04 BP 153/84 09/15/17 11:58 Pulse Ox 97 09/15/17 12:04 Intake & Output 09/14/17 09/15/17 09/15/17 18:59 06:59 18:59 Intake Total 1423.333 970 777.500 Output Total 0 Balance 1423.333 970 777.500 Weight (lbs) 59.421 kg 58.967 kg Intake: Intake, IV Amount 1423.333 200 777.500 D5-0.45NS 1,000 ml @ 50 1273.333 727.500 mls/hr IV .Q20H [facility] Rx#: [id number] Levofloxacin 250mg/50mL 50 250 mg In 50 ml @ 50 mls/ hr IV Q24HR [facility] Rx#: [id number] Piperacillin Sodium/ 50 Tazobact 3.375 gm In Sodium Chloride 0.9% 50 ml @ 100 mls/hr IV Q6HR REPLACED BY [facility] Rx#:[id number] metroNIDAZOLE 500mg/NS 100 200 100mL 500 mg In 100 ml @ 100 mls/hr IV Q8HR REPLACED BY [facility] Rx #:[id number] Oral 0 Tube Feeding 120 TPN/PPN 650 Output: Stool 0 Other: # Voids 5 4 # Bowel Movements 1 0 Stool Characteristics Soft Soft Brown Brown Weight Source Bedscale Bedscale Active Medications: Current Medications Acetaminophen (Tylenol) 650 mg GT Q4H PRN PRN Reason: Mild pain, temp above 100 Stop: 11/07/17 22:07 Al Hydrox/Mg Hydrox/Simethicone (Maalox) 30 ml GT Q4HR PRN PRN Reason: GI distress Stop: 11/07/17 22:12 Albuterol/Ipratropium (Duoneb Neb) 3 ml HHN Q4H PRN PRN Reason: Wheezing Stop: 11/07/17 19:41 Last Admin: 09/09/17 07:34 Dose: 3 ml Albuterol/Ipratropium (Duoneb Neb) 3 ml HHN [id number] REPLACED BY [facility] Stop: 11/09/17 14:59 Last Admin: 09/15/17 12:01 Dose: 3 ml Amlodipine Besylate (Norvasc) 5 mg GT DAILY [facility] Stop: 11/12/17 20:44 Last Admin: 09/15/17 09:05 Dose: 5 mg Ascorbic Acid (Vitamin C) 500 mg GT DAILY ANG Stop: 11/12/17 20:45 Last Admin: 09/15/17 09:05 Dose: 500 mg Budesonide (Pulmicort) 0.5 mg HHN BIDRT ANG Stop: 11/09/17 18:59 Last Admin: 09/15/17 07:38 Dose: 0.5 mg Donepezil HCl (Aricept) 10 mg GT HS [facility]PL[facility]ED BY [facility] Stop: 11/12/17 20:48 Last Admin: 09/14/17 21:37 Dose: 10 mg Dextrose/Sodium Chloride (D5-0.45ns) 1,000 mls @ 50 mls/hr IV .Q20H [facility] Stop: 11/09/17 08:14 Last Admin: 09/15/17 12:45 Dose: 50 mls/hr Metronidazole (Flagyl) 500 mg in 100 mls @ 100 mls/hr IV Q8HR ANG Stop: 11/09/17 12:59 Last Admin: 09/15/17 12:34 Dose: 100 mls/hr Piperacillin Sod/Tazobactam (Sod 3.375 gm/ Sodium Chloride) 50 mls @ 100 mls/ hr IV Q6HR ANG Stop: 11/14/17 11:59 Last Infusion: 09/15/17 12:10 Dose: Infused Lactobacillus Rhamnosus (Culturelle 15b) 1 each GT DAILY ANG Stop: 11/14/17 08:59 Last Admin: 09/15/17 09:06 Dose: 1 each Latanoprost (Xalatan 0.005% Oph Soln) 1 drop EACH EYE HS ANG Stop: 11/08/17 20:59 Last Admin: 09/14/17 21:37 Dose: Not Given Lorazepam (Ativan) 1 mg GT Q6HR PRN; Protocol PRN Reason: Agitation Stop: 11/11/17 11:14 Last Admin: 09/15/17 02:59 Dose: 1 mg Losartan Potassium (Cozaar) 50 mg GT DAILY ANG Stop: 11/12/17 20:46 Last Admin: 09/15/17 09:05 Dose: 50 mg Magnesium Hydroxide (Milk Of Magnesia) 30 ml PO HS PRN PRN Reason: Constipation Stop: 11/07/17 22:20 Memantine (Namenda) 5 mg GT BID ANG Stop: 11/14/17 16:59 Methylprednisolone Sodium Succinate (Solu-Medrol) 80 mg IVP Q12HR ANG Stop: 11/09/17 08:59 Last Admin: 09/15/17 09:41 Dose: 80 mg Miscellaneous (Probiotic Screen) 1 ea MC PRN PRN PRN Reason: PROTOCOL Stop: 11/14/17 08:44 Miscellaneous (Zosyn Iv Per Pharmacy) 1 ea MC PRN PRN PRN Reason: PROTOCOL Stop: 11/14/17 09:53 Multivitamins/Vitamin C (Theragran) 1 tab GT DAILY ANG Stop: 11/12/17 20:54 Last Admin: 09/15/17 09:06 Dose: 1 tab Olanzapine (Zyprexa) 5 mg GT HS ANG PRN Reason: Protocol Stop: 11/12/17 20:54 Last Admin: 09/14/17 21:36 Dose: 5 mg Olanzapine (Zyprexa) 2.5 mg GT DAILY ANG PRN Reason: Protocol Stop: 11/12/17 20:55 Last Admin: 09/15/17 09:07 Dose: 2.5 mg Tamsulosin HCl (Flomax) 0.4 mg GT HS ANG Stop: 11/12/17 20:55 Last Admin: 09/14/17 21:37 Dose: 0.4 mg Zolpidem Tartrate (Ambien) 5 mg GT HS PRN PRN Reason: Insomnia Stop: 11/07/17 22:26 Last Admin: 09/14/17 01:16 Dose: 5 mg General: no acute distress, well developed, well nourished HEENT: atraumatic, normocephalic, PERRLA, EOMI Neck: supple, no thyromegaly Cardiovascular: S1S2, regular Lungs: clear to auscultation bilaterally, clear to percussion Abdomen: soft, no tender, no distended Extremities: no cyanosis, no clubbing, no edema Skin: intact - Procedures Procedures: Procedures Procedure Code Date EGD PLACE GASTROSTOMY TUBE 09354 09/08/17 INSERTION OF FEEDING DEVICE INTO STOMACH, PERC APPROACH [id number] 09/08/17 Infectious Disease Assmt/Plan - Assessment Assessment: 1. Pneumonia. 2. Dementia. 3. Psychosis. 4. Anemia. 5. Benign prostatic hypertrophy. 6. Hypertension. 7. Glaucoma. 8. Prerenal azotemia. 9. Leukocytosis. - Plan Plan: Continue zosyn. Nutritional Asmnt/Malnutr-PDOC - Dietary Evaluation Malnutrition Findings (Please click <Entered> for more info): Nutritional Asmnt/Malnutrition Start: 09/10/17 18: 01 Text: Status: Complete Freq: Document 09/10/17 18:01 JELLY (Rec: 09/10/17 18:12 [id number] Nutritional Asmnt/Malnutrition Patient General Information Nutritional Screening High Risk Diagnosis PNA Pertinent Medical Hx/Surgical Hx PNA Subjective Information Pt seen sleeping at time of visit. Per nurse, pt failed swallow eval this morning. ST recommended strict NPO. MD may order PEG placement tommorrow . Current Diet Order/ Nutrition Support NPO Pertinent Medications vit C, D5-0.45ns, levaquin, theragran Pertinent Labs 09/10 BUN 32 Nutritional Hx/Data Height 1.73 m Height (Calculated Centimeters) 172.7 Current Weight (lbs) 70.307 kg Weight (Calculated Kilograms) 70.3 Weight (Calculated Grams) 28729.8 [place] Body Weight 154 Body Mass Index (BMI) 23.6 Weight Status Approriate GI Symptoms GI Symptoms None Last BM 09/08 Difficult in: Swallowing Skin Integrity/Comment: reddened to lower back scabs on both feet Estimated Nutritional Goals BEE in Kcals: Using Current wt Calories/Kcals/Kg 23-27 Kcals Calculated 0958-9983 Protein: Using Current wt Protein g/k-1.2 Protein Calculated 63-74 Fluid: ml 1610-1890ml (1ml/kcal) Nutritional Problem 1. Problem Problem inadequate energy intake Etiology pt failed swallow eval Signs/Symptoms: pt on NPO and need alternative nutrition route Intervention/Recommendation Comments 1. Monitor NPO status. 2. If TF needed, recommend initiating Fibersource HN at 20ml/hr for first 24hr, increase 10ml/hr q12hr to goal rate of 55ml/hr continuous. It provides 1584kcal, 71g protein, 1069ml free water, meeting 100% of nutritional needs. 3. Monitor TF rate, tolerance, wt weekly, skin integrity and labs 4. F/U as high risk in 2-3 days, 09/12-09/13 Expected Outcomes/Goals Expected Outcomes/Goals 1. Pt to meet at least 75% of nutritional needs via nutrition support with tolerance 2. Wt stability, skin to remain intact, labs to approach WNL.
--- NOTE | 2017-09-16 00:16 | Progress Notes ---
DATE: 09/15/2017 Case was discussed with staff of the patient, reviewed records. The patient was moved to another room. He is calmer in general, but he has mittens on because now he has a G-tube and he tend to pull his IVs and G tube. He continues to be demented, confused, unable to participate in meaningful conversation or make safe plan for self-care. He has been compliant with the medication with no side effects, no sedation, no nausea, no extrapyramidal symptoms. He is currently on Namenda 5 mg daily. I will be increasing the dose to 5 mg twice a day to help with his cognitive functioning. He is on Aricept 10 mg at bedtime. He was on Aricept 10 mg at bedtime. The antibiotic was discontinued today, the levofloxacin and he continues to be on the olanzapine and that is helping him calm down and be more cooperative and will continue with no side effects, no sedation, no nausea, no extrapyramidal symptoms. Thank you very much for allowing me to participate in the care of this most interesting gentleman. JOB# [id number]
[2017-09-16] MEDS: metroNIDAZOLE 500mg/NS 100mL 500 MG/100 ML BAG IV SCH ×2 (04:11→12:44)
--- NOTE | 2017-09-16 07:54 | General Progress Note ---
Subjective - Review of Systems Service Date: 09/16/17 Subjective: Patient was seen and examined. no acute distress. awake, alert, afebrile. Objective - Results Result Diagrams: 09/15/17 08:15 09/14/17 05:59 Recent Labs: Laboratory Last Values WBC 21.9 Th/cmm (4.8-10.8) H* 09/15/17 08:15 RBC 4.77 Mil/cmm (3.80-5.80) 09/15/17 08:15 Hgb 14.0 gm/dL (12-16) 09/15/17 08:15 Hct 42.4 % (41.0-60) 09/15/17 08:15 MCV 89.0 fl (80-99) 09/15/17 08:15 MCH 29.3 pg (27.0-31.0) 09/15/17 08:15 MCHC Differential 32.9 pg (28.0-36.0) 09/15/17 08:15 RDW 13.7 % (11.5-20.0) 09/15/17 08:15 Plt Count 353 Th/cmm (150-400) 09/15/17 08:15 MPV 7.6 fl 09/15/17 08:15 Neutrophils % 68.3 % (40.0-80.0) 09/10/17 05:40 Band Neutrophils % 3 % (0-10) 09/15/17 08:15 Lymphocytes % 16.7 % (20.0-50.0) L 09/10/17 05:40 Monocytes % 13.9 % (2.0-10.0) H 09/10/17 05:40 Eosinophils % 0.7 % (0.0-5.0) 09/10/17 05:40 Basophils % 0.4 % (0.0-2.0) 09/10/17 05:40 Neutrophils (Manual) 83 % (40-80) H 09/15/17 08:15 Lymphocytes 10 % (20-50) L 09/15/17 08:15 Monocytes 4 % (2-10) 09/15/17 08:15 Platelet Estimate ADEQUATE (NORMAL) 09/14/17 05:59 PT 11.7 SECONDS (9.5-11.5) H 09/11/17 05:58 INR 1.12 (0.5-1.4) 09/11/17 05:58 Specimen Source Arterial 09/11/17 08:20 Sample Site RB 09/11/17 08:20 pH 7.45 (7.35-7.45) 09/11/17 08:20 pCO2 35.0 mmHg (35.0-45.0) 09/11/17 08:20 pO2 66.0 mmHg (80.0-100.0) L 09/11/17 08:20 HCO3 25.3 mEq/L (20.0-26.0) 09/11/17 08:20 Base Excess 0.6 mEq/L (-3.0-3.0) 09/11/17 08:20 O2 Saturation 94.0 % (92.0-100.0) 09/11/17 08:20 Franki Test POSITIVE 09/11/17 08:20 Vent Rate NA 09/11/17 08:20 Inspired O2 21 09/11/17 08:20 Tidal Volume NA 09/11/17 08:20 PEEP NA 09/11/17 08:20 Pressure (ins/psv/peep) NA 09/11/17 08:20 Critical Value SANDEEP CAMPOS 09/11/17 08:20 Sodium 141 mEq/L (136-145) 09/14/17 05:59 Potassium 3.9 mEq/L (3.5-5.1) 09/14/17 05:59 Chloride 108 mEq/L (98-107) H 09/14/17 05:59 Carbon Dioxide 26.3 mEq/L (21.0-31.0) 09/14/17 05:59 Anion Gap 10.6 (7.0-16.0) 09/14/17 05:59 BUN 32 mg/dL (7-25) H 09/14/17 05:59 Creatinine 0.7 mg/dL (0.7-1.3) 09/14/17 05:59 Est GFR ( Amer) TNP 09/14/17 05:59 Est GFR (Non-Af Amer) TNP 09/14/17 05:59 BUN/Creatinine Ratio 45.7 09/14/17 05:59 Glucose 187 mg/dL (70-105) H 09/14/17 05:59 POC Glucose 166 MG/DL (70 - 105) H 09/15/17 11:54 Calcium 9.3 mg/dL (8.6-10.3) 09/14/17 05:59 Total Bilirubin 0.6 mg/dL (0.3-1.0) 09/14/17 05:59 AST 13 U/L (13-39) 09/14/17 05:59 ALT 16 U/L (7-52) 09/14/17 05:59 Alkaline Phosphatase 97 U/L (34-104) 09/14/17 05:59 Troponin I 0.03 ng/mL (0.01-0.05) 09/09/17 10:15 B-Natriuretic Peptide 88.6 pg/mL (5.0-100.0) 09/10/17 05:40 Total Protein 5.7 gm/dL (6.0-8.3) L 09/14/17 05:59 Albumin 3.3 gm/dL (4.2-5.5) L 09/14/17 05:59 Globulin 2.4 gm/dL 09/14/17 05:59 Albumin/Globulin Ratio 1.4 (1.0-1.8) 09/14/17 05:59 TSH 0.53 uIU/ml (0.34-5.60) 09/11/17 05:58 Helicobacter pylori Ab NEGATIVE (NEGATIVE) 09/11/17 09:50 - Physical Exam Vitals and I&O: Vital Signs Temp 97.6 F 09/16/17 06:00 Pulse 75 09/16/17 06:00 Resp 17 09/16/17 06:00 BP 137/80 09/16/17 06:00 Pulse Ox 95 09/16/17 04:00 Intake & Output 09/15/17 09/16/17 09/16/17 18:59 06:59 18:59 Intake Total 767.802 5677 Balance 178.196 0328 Weight (lbs) 61.643 kg Intake: Intake, IV Amount 877.500 200 D5-0.45NS 1,000 ml @ 50 727.500 mls/hr IV .Q20H ANG Rx#: [id number] Piperacillin Sodium/ 50 100 Tazobact 3.375 gm In Sodium Chloride 0.9% 50 ml @ 100 mls/hr IV Q6HR ANG Rx#:[id number] metroNIDAZOLE 500mg/NS 100 100 100mL 500 mg In 100 ml @ 100 mls/hr IV Q8HR [facility] Rx #:[id number] Tube Feeding 880 Other: # Voids 2 # Bowel Movements 1 Weight Source Bedscale Active Medications: Current Medications Acetaminophen (Tylenol) 650 mg GT Q4H PRN PRN Reason: Mild pain, temp above 100 Stop: 11/07/17 22:07 Al Hydrox/Mg Hydrox/Simethicone (Maalox) 30 ml GT Q4HR PRN PRN Reason: GI distress Stop: 11/07/17 22:12 Albuterol/Ipratropium (Duoneb Neb) 3 ml HHN Q4H PRN PRN Reason: Wheezing Stop: 11/07/17 19:41 Last Admin: 09/09/17 07:34 Dose: 3 ml Albuterol/Ipratropium (Duoneb Neb) 3 ml HHN [id number] [facility] Stop: 11/09/17 14:59 Last Admin: 09/15/17 18:53 Dose: 3 ml Amlodipine Besylate (Norvasc) 5 mg GT DAILY [facility] Stop: 11/12/17 20:44 Last Admin: 09/15/17 09:05 Dose: 5 mg Ascorbic Acid (Vitamin C) 500 mg GT DAILY [facility] Stop: 11/12/17 20:45 Last Admin: 09/15/17 09:05 Dose: 500 mg Budesonide (Pulmicort) 0.5 mg HHN BIDRT [facility] Stop: 11/09/17 18:59 Last Admin: 09/15/17 19:29 Dose: 0.5 mg Donepezil HCl (Aricept) 10 mg GT HS [facility] Stop: 11/12/17 20:48 Last Admin: 09/15/17 20:37 Dose: 10 mg Dextrose/Sodium Chloride (D5-0.45ns) 1,000 mls @ 50 mls/hr IV .Q20H [facility] Stop: 11/09/17 08:14 Last Admin: 09/15/17 12:45 Dose: 50 mls/hr Metronidazole (Flagyl) 500 mg in 100 mls @ 100 mls/hr IV Q8HR [facility] Stop: 11/09/17 12:59 Last Admin: 09/16/17 04:11 Dose: 100 mls/hr Piperacillin Sod/Tazobactam (Sod 3.375 gm/ Sodium Chloride) 50 mls @ 100 mls/ hr IV Q6HR ANG Stop: 11/14/17 11:59 Last Admin: 09/16/17 05:06 Dose: 100 mls/hr Lactobacillus Rhamnosus (Culturelle 15b) 1 each GT DAILY ANG Stop: 11/14/17 08:59 Last Admin: 09/15/17 09:06 Dose: 1 each Latanoprost (Xalatan 0.005% Ophth Soln) 1 drop EACH EYE HS ANG Stop: 11/08/17 20:59 Last Admin: 09/15/17 20:34 Dose: Not Given Lorazepam (Ativan) 1 mg GT Q6HR PRN; Protocol PRN Reason: Agitation Stop: 11/11/17 11:14 Last Admin: 09/15/17 02:59 Dose: 1 mg Losartan Potassium (Cozaar) 50 mg GT DAILY ANG Stop: 11/12/17 20:46 Last Admin: 09/15/17 09:05 Dose: 50 mg Magnesium Hydroxide (Milk Of Magnesia) 30 ml PO HS PRN PRN Reason: Constipation Stop: 11/07/17 22:20 Memantine (Namenda) 5 mg GT BID ANG Stop: 11/14/17 16:59 Last Admin: 09/15/17 19:21 Dose: 5 mg Methylprednisolone Sodium Succinate (Solu-Medrol) 80 mg IVP Q12HR ANG Stop: 11/09/17 08:59 Last Admin: 09/15/17 20:37 Dose: 80 mg Miscellaneous (Probiotic Screen) 1 ea PRN PRN PRN Reason: PROTOCOL Stop: 11/14/17 08:44 Miscellaneous (Zosyn Iv Per Pharmacy) 1 ea PRN PRN PRN Reason: PROTOCOL Stop: 11/14/17 09:53 Multivitamins/Vitamin C (Theragran) 1 tab GT DAILY ANG Stop: 11/12/17 20:54 Last Admin: 09/15/17 09:06 Dose: 1 tab Olanzapine (Zyprexa) 5 mg GT HS ANG PRN Reason: Protocol Stop: 11/12/17 20:54 Last Admin: 09/15/17 20:37 Dose: 5 mg Olanzapine (Zyprexa) 2.5 mg GT DAILY ANG PRN Reason: Protocol Stop: 11/12/17 20:55 Last Admin: 09/15/17 09:07 Dose: 2.5 mg Tamsulosin HCl (Flomax) 0.4 mg GT HS ANG Stop: 11/12/17 20:55 Last Admin: 09/15/17 20:38 Dose: 0.4 mg Zolpidem Tartrate (Ambien) 5 mg GT HS PRN PRN Reason: Insomnia Stop: 11/07/17 22:26 Last Admin: 09/14/17 01:16 Dose: 5 mg General: Alert HEENT: Atraumatic, PERRLA, EOMI Cardiovascular: Regular rate, Normal S1, Normal S2 Lungs: Other (rhonchi) Abdomen: Bowel sounds, Soft Extremities: Edema, no Clubbing, no Cyanosis Neurological: Normal gait Skin: no Rash Psych/Mental Status: Other (dementia) - Procedures Procedures: Procedures Procedure Code Date EGD PLACE GASTROSTOMY TUBE 12346 09/08/17 INSERTION OF FEEDING DEVICE INTO STOMACH, PERC APPROACH [id number] 09/08/17 Assessment/Plan - Assessment Assessment: leukocytosis pneumonia vs aspiration PNA htn bph glaucoma anemia dementia psychosis prerenal azotemia improving. s/p g-tube placement leukocytosis - Plan Plan: repeat cbc pulmonary consult id consult psyche consult Zosyn IV per pharmacy Flagyl 500mg IV q8 gentle hydration gtube feeing per dietary Nutritional Asmnt/Malnutr-PDOC - Dietary Evaluation Malnutrition Findings (Please click <Entered> for more info): Nutritional Asmnt/Malnutrition Start: 09/10/17 18: 01 Text: Status: Complete Freq: Document 09/10/17 18:01 GUZMAN (Rec: 09/10/17 18:12 KISHORE [email or web address]) Nutritional Asmnt/Malnutrition Patient General Information Nutritional Screening High Risk Diagnosis PNA Pertinent Medical Hx/Surgical Hx PNA Subjective Information Pt seen sleeping at time of visit. Per nurse, pt failed swallow eval this morning. ST recommended strict NPO. MD may order PEG placement tommorrow . Current Diet Order/ Nutrition Support NPO Pertinent Medications vit C, D5-0.45ns, levaquin, theragran Pertinent Labs 09/10 BUN 32 Nutritional Hx/Data Height 1.73 m Height (Calculated Centimeters) 172.7 Current Weight (lbs) 70.307 kg Weight (Calculated Kilograms) 70.3 Weight (Calculated Grams) 15650.8 [place] Body Weight 154 Body Mass Index (BMI) 23.6 Weight Status Approriate GI Symptoms GI Symptoms None Last BM 09/08 Difficult in: Swallowing Skin Integrity/Comment: reddened to lower back scabs on both feet Estimated Nutritional Goals BEE in Kcals: Using Current wt Calories/Kcals/Kg 23-27 Kcals Calculated 7267-1006 Protein: Using Current wt Protein g/k-1.2 Protein Calculated 63-74 Fluid: ml 1610-1890ml (1ml/kcal) Nutritional Problem 1. Problem Problem inadequate energy intake Etiology pt failed swallow eval Signs/Symptoms: pt on NPO and need alternative nutrition route Intervention/Recommendation Comments 1. Monitor NPO status. 2. If TF needed, recommend initiating Fibersource HN at 20ml/hr for first 24hr, increase 10ml/hr q12hr to goal rate of 55ml/hr continuous. It provides 1584kcal, 71g protein, 1069ml free water, meeting 100% of nutritional needs. 3. Monitor TF rate, tolerance, wt weekly, skin integrity and labs 4. F/U as high risk in 2-3 days, 09/12-09/13 Expected Outcomes/Goals Expected Outcomes/Goals 1. Pt to meet at least 75% of nutritional needs via nutrition support with tolerance 2. Wt stability, skin to remain intact, labs to approach WNL.
[2017-09-16] MEDS: Albuterol/Ipratropium Neb 3 ML AERS HHN SCH ×4 (08:07→19:43)
[2017-09-16] MEDS: Budesonide 0.5 Mg/2 mL Ud HHN SCH ×2 (08:07→19:57)
[2017-09-16] MEDS: Lactobacillus Rhamnosus GG 15 Billion CFU CAP.SPRINK GT SCH (08:23)
[2017-09-16] MEDS: Multivitamin Tab GT SCH (08:23)
[2017-09-16 08:25] LABS: HEMATOCRIT 39.7 % (41.0-60); HEMOGLOBIN 13.3 gm/dL (12-16); MANUAL DIFF REQUIRED? YES; MEAN CELL VOLUME 88.4 fl (80-99); MEAN CORPUSCULAR HEMOGLOBIN 29.7 pg (27.0-31.0); MEAN CORPUSCULAR HGB CONC 33.6 pg (28.0-36.0); MEAN PLATELET VOLUME 7.5 fl; MONOCYTE ABSOLUTE 0.5 Th/cmm (0.3-1.0); NEUTROPHILE ABSOLUTE 18.3 Th/cmm (1.8-8.0); PLATELET COUNT 337 Th/cmm (150-400); RED BLOOD COUNT 4.49 Mil/cmm (3.80-5.80); RED CELL DISTRIBUTION WIDTH 13.9 % (11.5-20.0)
[2017-09-16 08:29] LABS: WHITE BLOOD COUNT 19.8 Th/cmm (4.8-10.8)
[2017-09-16 08:47] LABS: BAND NEUTROPHILE 6 % (0-10); LYMPHOCYTE 12 % (20-50); NEUTROPHILS 77 % (40-80); TOTAL CELLS COUNTED 100
[2017-09-16 08:48] LABS: MONOCYTE 5 % (2-10)
[2017-09-16] MEDS: D5-0.45NS 1,000 ML IV SCH (11:43)
--- NOTE | 2017-09-16 13:25 | Infectious Disease Prog Note ---
Infectious Disease Subjective - Review of Systems Service Date: 09/16/17 Subjective: No change, no fever. Infectious Disease Objective - Results Result Diagrams: 09/16/17 08:07 09/14/17 05:59 Recent Labs: Laboratory Last Values WBC 19.8 Th/cmm (4.8-10.8) H 09/16/17 08:07 RBC 4.49 Mil/cmm (3.80-5.80) 09/16/17 08:07 Hgb 13.3 gm/dL (12-16) 09/16/17 08:07 Hct 39.7 % (41.0-60) L 09/16/17 08:07 MCV 88.4 fl (80-99) 09/16/17 08:07 MCH 29.7 pg (27.0-31.0) 09/16/17 08:07 MCHC Differential 33.6 pg (28.0-36.0) 09/16/17 08:07 RDW 13.9 % (11.5-20.0) 09/16/17 08:07 Plt Count 337 Th/cmm (150-400) 09/16/17 08:07 MPV 7.5 fl 09/16/17 08:07 Neutrophils % [employer] 09/16/17 08:07 Band Neutrophils % 6 % (0-10) 09/16/17 08:07 Lymphocytes % [employer] 09/16/17 08:07 Monocytes % [employer] 09/16/17 08:07 Eosinophils % [employer] 09/16/17 08:07 Basophils % [employer] 09/16/17 08:07 Neutrophils (Manual) 77 % (40-80) 09/16/17 08:07 Lymphocytes 12 % (20-50) L 09/16/17 08:07 Monocytes 5 % (2-10) 09/16/17 08:07 Platelet Estimate ADEQUATE (NORMAL) 09/14/17 05:59 PT 11.7 SECONDS (9.5-11.5) H 09/11/17 05:58 INR 1.12 (0.5-1.4) 09/11/17 05:58 Specimen Source Arterial 09/11/17 08:20 Sample Site RB 09/11/17 08:20 pH 7.45 (7.35-7.45) 09/11/17 08:20 pCO2 35.0 mmHg (35.0-45.0) 09/11/17 08:20 pO2 66.0 mmHg (80.0-100.0) L 09/11/17 08:20 HCO3 25.3 mEq/L (20.0-26.0) 09/11/17 08:20 Base Excess 0.6 mEq/L (-3.0-3.0) 09/11/17 08:20 O2 Saturation 94.0 % (92.0-100.0) 09/11/17 08:20 Franki Test POSITIVE 09/11/17 08:20 Vent Rate NA 09/11/17 08:20 Inspired O2 21 09/11/17 08:20 Tidal Volume NA 09/11/17 08:20 PEEP NA 09/11/17 08:20 Pressure (ins/psv/peep) NA 09/11/17 08:20 Critical Value SANDEEP CAMPOS 09/11/17 08:20 Sodium 141 mEq/L (136-145) 09/14/17 05:59 Potassium 3.9 mEq/L (3.5-5.1) 09/14/17 05:59 Chloride 108 mEq/L (98-107) H 09/14/17 05:59 Carbon Dioxide 26.3 mEq/L (21.0-31.0) 09/14/17 05:59 Anion Gap 10.6 (7.0-16.0) 09/14/17 05:59 BUN 32 mg/dL (7-25) H 09/14/17 05:59 Creatinine 0.7 mg/dL (0.7-1.3) 09/14/17 05:59 Est GFR ( Amer) TNP 09/14/17 05:59 Est GFR (Non-Af Amer) NYP 09/14/17 05:59 BUN/Creatinine Ratio 45.7 09/14/17 05:59 Glucose 187 mg/dL (70-105) H 09/14/17 05:59 POC Glucose 166 MG/DL (70 - 105) H 09/15/17 11:54 Calcium 9.3 mg/dL (8.6-10.3) 09/14/17 05:59 Total Bilirubin 0.6 mg/dL (0.3-1.0) 09/14/17 05:59 AST 13 U/L (13-39) 09/14/17 05:59 ALT 16 U/L (7-52) 09/14/17 05:59 Alkaline Phosphatase 97 U/L (34-104) 09/14/17 05:59 Troponin I 0.03 ng/mL (0.01-0.05) 09/09/17 10:15 B-Natriuretic Peptide 88.6 pg/mL (5.0-100.0) 09/10/17 05:40 Total Protein 5.7 gm/dL (6.0-8.3) L 09/14/17 05:59 Albumin 3.3 gm/dL (4.2-5.5) L 09/14/17 05:59 Globulin 2.4 gm/dL 09/14/17 05:59 Albumin/Globulin Ratio 1.4 (1.0-1.8) 09/14/17 05:59 TSH 0.53 uIU/ml (0.34-5.60) 09/11/17 05:58 Helicobacter pylori Ab NEGATIVE (NEGATIVE) 09/11/17 09:50 - Physical Exam Vitals and I&O: Vital Signs Temp 98.6 F 09/16/17 12:00 Pulse 73 09/16/17 12:00 Resp 18 09/16/17 12:21 BP 141/79 09/16/17 12:00 Pulse Ox 98 09/16/17 11:39 Intake & Output 09/15/17 09/16/17 09/16/17 18:59 06:59 18:59 Intake Total 002.506 5585 1000 Balance 197.454 3299 1000 Weight (lbs) 61.643 kg Intake: Intake, IV Amount 877.690 258 2015 D5-0.45NS 1,000 ml @ 50 166.344 2338 mls/hr IV .Q20H ANG Rx#: [id number] Piperacillin Sodium/ 50 150 Tazobact 3.375 gm In Sodium Chloride 0.9% 50 ml @ 100 mls/hr IV Q6HR [facility] Rx#:[id number] metroNIDAZOLE 500mg/NS 100 200 100mL 500 mg In 100 ml @ 100 mls/hr IV Q8HR ANG Rx #:[id number] Tube Feeding 880 Other: # Voids 2 # Bowel Movements 1 Weight Source Bedscale Active Medications: Current Medications Acetaminophen (Tylenol) 650 mg GT Q4H PRN PRN Reason: Mild pain, temp above 100 Stop: 11/07/17 22:07 Al Hydrox/Mg Hydrox/Simethicone (Maalox) 30 ml GT Q4HR PRN PRN Reason: GI distress Stop: 11/07/17 22:12 Albuterol/Ipratropium (Duoneb Neb) 3 ml HHN Q4H PRN PRN Reason: Wheezing Stop: 11/07/17 19:41 Last Admin: 09/09/17 07:34 Dose: 3 ml Albuterol/Ipratropium (Duoneb Neb) 3 ml HHN [id number] ANG Stop: 11/09/17 14:59 Last Admin: 09/16/17 11:36 Dose: 3 ml Amlodipine Besylate (Norvasc) 5 mg GT DAILY [facility] Stop: 11/12/17 20:44 Last Admin: 09/16/17 08:23 Dose: 5 mg Ascorbic Acid (Vitamin C) 500 mg GT DAILY ANG Stop: 11/12/17 20:45 Last Admin: 09/16/17 08:23 Dose: 500 mg Budesonide (Pulmicort) 0.5 mg HHN BIDRT ANG Stop: 11/09/17 18:59 Last Admin: 09/16/17 08:07 Dose: 0.5 mg Donepezil HCl (Aricept) 10 mg GT HS [facility] Stop: 11/12/17 20:48 Last Admin: 09/15/17 20:37 Dose: 10 mg Dextrose/Sodium Chloride (D5-0.45ns) 1,000 mls @ 50 mls/hr IV .Q20H ANG Stop: 11/09/17 08:14 Last Admin: 09/16/17 11:43 Dose: 50 mls/hr Metronidazole (Flagyl) 500 mg in 100 mls @ 100 mls/hr IV Q8HR ANG Stop: 11/09/17 12:59 Last Admin: 09/16/17 12:44 Dose: 100 mls/hr Piperacillin Sod/Tazobactam (Sod 3.375 gm/ Sodium Chloride) 50 mls @ 100 mls/ hr IV Q6HR ANG Stop: 11/14/17 11:59 Last Admin: 09/16/17 11:42 Dose: 100 mls/hr Lactobacillus Rhamnosus (Culturelle 15b) 1 each GT DAILY ANG Stop: 11/14/17 08:59 Last Admin: 09/16/17 08:23 Dose: 1 each Latanoprost (Xalatan 0.005% Ophth Soln) 1 drop EACH EYE HS ANG Stop: 11/08/17 20:59 Last Admin: 09/15/17 20:34 Dose: Not Given Lorazepam (Ativan) 1 mg GT Q6HR PRN; Protocol PRN Reason: Agitation Stop: 11/11/17 11:14 Last Admin: 09/15/17 02:59 Dose: 1 mg Losartan Potassium (Cozaar) 50 mg GT DAILY ANG Stop: 11/12/17 20:46 Last Admin: 09/16/17 08:23 Dose: 50 mg Magnesium Hydroxide (Milk Of Magnesia) 30 ml PO HS PRN PRN Reason: Constipation Stop: 11/07/17 22:20 Memantine (Namenda) 5 mg GT BID ANG Stop: 11/14/17 16:59 Last Admin: 09/16/17 08:23 Dose: 5 mg Methylprednisolone Sodium Succinate (Solu-Medrol) 80 mg IVP Q12HR ANG Stop: 11/09/17 08:59 Last Admin: 09/16/17 08:21 Dose: 80 mg Miscellaneous (Probiotic Screen) 1 ea PRN PRN PRN Reason: PROTOCOL Stop: 11/14/17 08:44 Miscellaneous (Zosyn Iv Per Pharmacy) 1 ea PRN PRN PRN Reason: PROTOCOL Stop: 11/14/17 09:53 Multivitamins/Vitamin C (Theragran) 1 tab GT DAILY ANG Stop: 11/12/17 20:54 Last Admin: 09/16/17 08:23 Dose: 1 tab Olanzapine (Zyprexa) 5 mg GT HS ANG PRN Reason: Protocol Stop: 11/12/17 20:54 Last Admin: 09/15/17 20:37 Dose: 5 mg Olanzapine (Zyprexa) 2.5 mg GT DAILY ANG PRN Reason: Protocol Stop: 11/12/17 20:55 Last Admin: 09/16/17 08:22 Dose: 2.5 mg Tamsulosin HCl (Flomax) 0.4 mg GT HS ANG Stop: 11/12/17 20:55 Last Admin: 09/15/17 20:38 Dose: 0.4 mg Zolpidem Tartrate (Ambien) 5 mg GT HS PRN PRN Reason: Insomnia Stop: 11/07/17 22:26 Last Admin: 09/14/17 01:16 Dose: 5 mg General: no acute distress, well developed, well nourished HEENT: atraumatic, normocephalic, PERRLA, EOMI Neck: supple, no thyromegaly Cardiovascular: S1S2, regular, systolic murmur Lungs: clear to auscultation bilaterally, clear to percussion Abdomen: soft, tender, hepatomegaly, no distended Extremities: no cyanosis, no clubbing, no edema - Procedures Procedures: Procedures Procedure Code Date EGD PLACE GASTROSTOMY TUBE 14386 09/08/17 INSERTION OF FEEDING DEVICE INTO STOMACH, PERC APPROACH [id number] 09/08/17 Infectious Disease Assmt/Plan - Assessment Assessment: 1. Pneumonia. 2. Dementia. 3. Psychosis. 4. Anemia. 5. Benign prostatic hypertrophy. 6. Hypertension. 7. Glaucoma. 8. Prerenal azotemia. 9. Leukocytosis. Improving. - Plan Plan: Continue zosyn. Nutritional Asmnt/Malnutr-PDOC - Dietary Evaluation Malnutrition Findings (Please click <Entered> for more info): Nutritional Asmnt/Malnutrition Start: 09/10/17 18: 01 Text: Status: Complete Freq: Document 09/10/17 18:01 [facility] (Rec: 09/10/17 18:12 [facility] [id number]) Nutritional Asmnt/Malnutrition Patient General Information Nutritional Screening High Risk Diagnosis PNA Pertinent Medical Hx/Surgical Hx PNA Subjective Information Pt seen sleeping at time of visit. Per nurse, pt failed swallow eval this morning. ST recommended strict NPO. MD may order PEG placement tommorrow . Current Diet Order/ Nutrition Support NPO Pertinent Medications vit C, D5-0.45ns, levaquin, theragran Pertinent Labs 09/10 BUN 32 Nutritional Hx/Data Height 1.73 m Height (Calculated Centimeters) 172.7 Current Weight (lbs) 70.307 kg Weight (Calculated Kilograms) 70.3 Weight (Calculated Grams) 11479.8 [place] Body Weight 154 Body Mass Index (BMI) 23.6 Weight Status Approriate GI Symptoms GI Symptoms None Last BM 09/08 Difficult in: Swallowing Skin Integrity/Comment: reddened to lower back scabs on both feet Estimated Nutritional Goals BEE in Kcals: Using Current wt Calories/Kcals/Kg 23-27 Kcals Calculated 2363-6626 Protein: Using Current wt Protein g/k-1.2 Protein Calculated 63-74 Fluid: ml 1610-1890ml (1ml/kcal) Nutritional Problem 1. Problem Problem inadequate energy intake Etiology pt failed swallow eval Signs/Symptoms: pt on NPO and need alternative nutrition route Intervention/Recommendation Comments 1. Monitor NPO status. 2. If TF needed, recommend initiating Fibersource HN at 20ml/hr for first 24hr, increase 10ml/hr q12hr to goal rate of 55ml/hr continuous. It provides 1584kcal, 71g protein, 1069ml free water, meeting 100% of nutritional needs. 3. Monitor TF rate, tolerance, wt weekly, skin integrity and labs 4. F/U as high risk in 2-3 days, 09/12-09/13 Expected Outcomes/Goals Expected Outcomes/Goals 1. Pt to meet at least 75% of nutritional needs via nutrition support with tolerance 2. Wt stability, skin to remain intact, labs to approach WNL.
--- NOTE | 2017-09-17 01:56 | Progress Notes ---
DATE: 09/15/2017 PULMONARY PROGRESS NOTE PROBLEM LIST: 1. Aspiration pneumonia, improved. 2. Chronic obstructive pulmonary disease with possibly pulmonary fibrosis. 3. Dysphagia. 4. Psychosis. SYMPTOMS: Nil. The patient is feeling okay, very minimal to not communicative, not in any acute distress. PHYSICAL EXAMINATION: VITAL SIGNS: Temperature is 98, blood pressure 120/80, saturation is mid 90s on room air. No respiratory distress. NECK: Veins not visualized. CHEST: Shows occasional transmitted noise otherwise unremarkable. HEART: Regular. ABDOMEN: Soft, nontender. EXTREMITIES: Shows no peripheral edema. ASSESSMENT: The patient is clinically stable, improving. PLANS AND SUGGESTIONS: We will go ahead and okay for discharge for a few days of antibiotics by G-tube, etc. and go from there. JOB# [id number]
--- NOTE | 2017-09-17 02:02 | Progress Notes ---
DATE: 09/16/2017 PULMONARY PROGRESS NOTE PROBLEM LIST: 1. Aspiration tracheobronchitis with pneumonia. 2. Alzheimer's. 3. Aspiration and underlying history of psychosis. SYMPTOMS: The patient is awake, periodically restless, no distress, and some upper respiratory secretory noise with tongue falling back. PHYSICAL EXAMINATION: VITAL SIGNS: Temperature is 98.6, blood pressure 141/79, respirations 16. NECK: Veins not visualized. Good bilateral carotid upstroke. CHEST: Shows occasional rhonchi with diminished air entry. HEART: Regular. ABDOMEN: Soft, nontender. LABORATORY DATA: The patient's white count went to 19,000 and presumably possibly related to the steroid. PLANS AND SUGGESTIONS: We will discontinue steroid totally, we will put it orally and repeat white count tomorrow and go from there. JOB# [id number]
[2017-09-17 02:57] LABS: URINE MICROSCOPIC INDICATED? YES; URINE SOURCE CATH
[2017-09-17 02:58] LABS: URINE BILIRUBIN NEGATIVE (NEGATIVE); URINE BLOOD NEGATIVE (NEGATIVE); URINE GLUCOSE (UA) NEGATIVE (NEGATIVE); URINE KETONE NEGATIVE (NEGATIVE); URINE LEUKOCYTE ESTERASE NEGATIVE (NEGATIVE); URINE NITRATE NEGATIVE (NEGATIVE); URINE PROTEIN NEGATIVE (NEGATIVE); URINE UROBILINOGEN 0.2 E.U./dL (0.2 - 1.0)
[2017-09-17 03:01] LABS: URINE BACTERIA NONE SEEN /hpf (NONE SEEN); URINE CLARITY CLEAR (CLEAR); URINE COLOR YELLOW; URINE EPITHELIAL CELLS OCCASIONAL /lpf (FEW); URINE RBC NONE SEEN /hpf (0-5); URINE WBC NONE SEEN /hpf (0-5)
--- NOTE | 2017-09-17 03:29 | Progress Notes ---
DATE: 09/16/2017 SUBJECTIVE: Case was discussed with staff of the patient and reviewed records. The patient continues to be the same, unable to participate in a meaningful conversation demented, confused. PLAN: He continues to have multiple medical issues that are being dealt with on the Med-Surg unit. I did increase Namenda dose yesterday to improve his cognition and no side effects with the medication. Thank you very much for allowing me to participate in the care of this most interesting gentleman. JOB# [id number]
[2017-09-17 06:31] LABS: HEMATOCRIT 41.8 % (41.0-60); HEMOGLOBIN 14.2 gm/dL (12-16); MEAN CELL VOLUME 88.5 fl (80-99); RED BLOOD COUNT 4.72 Mil/cmm (3.80-5.80); RED CELL DISTRIBUTION WIDTH 14.1 % (11.5-20.0)
[2017-09-17 06:35] LABS: WHITE BLOOD COUNT 27.7 Th/cmm (4.8-10.8)
[2017-09-17 06:36] LABS: MANUAL DIFF REQUIRED? YES; PLATELET COUNT 233 Th/cmm (150-400)
[2017-09-17] MEDS: Albuterol/Ipratropium Neb 3 ML AERS HHN SCH ×4 (07:14→19:02)
[2017-09-17] MEDS: Budesonide 0.5 Mg/2 mL Ud HHN SCH ×2 (07:16→19:02)
[2017-09-17 07:19] LABS: BAND NEUTROPHILE 8 % (0-10); LYMPHOCYTE 11 % (20-50); MONOCYTE 2 % (2-10); NEUTROPHILS 79 % (40-80); TOTAL CELLS COUNTED 100
--- NOTE | 2017-09-17 07:47 | General Progress Note ---
Subjective - Review of Systems Service Date: 09/17/17 Subjective: Patient was seen and examined. no acute distress. awake, alert, afebrile. WBC' s elevated. For chest xray this AM. Objective - Results Result Diagrams: 09/17/17 06:18 09/14/17 05:59 Recent Labs: Laboratory Last Values WBC 27.7 Th/cmm (4.8-10.8) H* 09/17/17 06:18 RBC 4.72 Mil/cmm (3.80-5.80) 09/17/17 06:18 Hgb 14.2 gm/dL (12-16) 09/17/17 06:18 Hct 41.8 % (41.0-60) 09/17/17 06:18 MCV 88.5 fl (80-99) 09/17/17 06:18 MCH 30.0 pg (27.0-31.0) 09/17/17 06:18 MCHC Differential 34.0 pg (28.0-36.0) 09/17/17 06:18 RDW 14.1 % (11.5-20.0) 09/17/17 06:18 Plt Count 233 Th/cmm (150-400) D 09/17/17 06:18 MPV 8.0 fl 09/17/17 06:18 Neutrophils % AGRICULTURAL EXTENSION SPECIALIST 09/16/17 08:07 Band Neutrophils % 8 % (0-10) 09/17/17 06:18 Lymphocytes % AGRICULTURAL EXTENSION SPECIALIST 09/16/17 08:07 Monocytes % AGRICULTURAL EXTENSION SPECIALIST 09/16/17 08:07 Eosinophils % AGRICULTURAL EXTENSION SPECIALIST 09/16/17 08:07 Basophils % AGRICULTURAL EXTENSION SPECIALIST 09/16/17 08:07 Neutrophils (Manual) 79 % (40-80) 09/17/17 06:18 Lymphocytes 11 % (20-50) L 09/17/17 06:18 Monocytes 2 % (2-10) 09/17/17 06:18 Platelet Estimate ADEQUATE (NORMAL) 09/14/17 05:59 PT 11.7 SECONDS (9.5-11.5) H 09/11/17 05:58 INR 1.12 (0.5-1.4) 09/11/17 05:58 Specimen Source Arterial 09/11/17 08:20 Sample Site RB 09/11/17 08:20 pH 7.45 (7.35-7.45) 09/11/17 08:20 pCO2 35.0 mmHg (35.0-45.0) 09/11/17 08:20 pO2 66.0 mmHg (80.0-100.0) L 09/11/17 08:20 HCO3 25.3 mEq/L (20.0-26.0) 09/11/17 08:20 Base Excess 0.6 mEq/L (-3.0-3.0) 09/11/17 08:20 O2 Saturation 94.0 % (92.0-100.0) 09/11/17 08:20 Franki Test POSITIVE 09/11/17 08:20 Vent Rate NA 09/11/17 08:20 Inspired O2 21 09/11/17 08:20 Tidal Volume NA 09/11/17 08:20 PEEP NA 09/11/17 08:20 Pressure (ins/psv/peep) NA 09/11/17 08:20 Critical Value SANDEEP CAMPOS 09/11/17 08:20 Sodium 141 mEq/L (136-145) 09/14/17 05:59 Potassium 3.9 mEq/L (3.5-5.1) 09/14/17 05:59 Chloride 108 mEq/L (98-107) H 09/14/17 05:59 Carbon Dioxide 26.3 mEq/L (21.0-31.0) 09/14/17 05:59 Anion Gap 10.6 (7.0-16.0) 09/14/17 05:59 BUN 32 mg/dL (7-25) H 09/14/17 05:59 Creatinine 0.7 mg/dL (0.7-1.3) 09/14/17 05:59 Est GFR ( Amer) TNP 09/14/17 05:59 Est GFR (Non-Af Amer) TNP 09/14/17 05:59 BUN/Creatinine Ratio 45.7 09/14/17 05:59 Glucose 187 mg/dL (70-105) H 09/14/17 05:59 POC Glucose 166 MG/DL (70 - 105) H 09/15/17 11:54 Calcium 9.3 mg/dL (8.6-10.3) 09/14/17 05:59 Total Bilirubin 0.6 mg/dL (0.3-1.0) 09/14/17 05:59 AST 13 U/L (13-39) 09/14/17 05:59 ALT 16 U/L (7-52) 09/14/17 05:59 Alkaline Phosphatase 97 U/L (34-104) 09/14/17 05:59 Troponin I 0.03 ng/mL (0.01-0.05) 09/09/17 10:15 B-Natriuretic Peptide 88.6 pg/mL (5.0-100.0) 09/10/17 05:40 Total Protein 5.7 gm/dL (6.0-8.3) L 09/14/17 05:59 Albumin 3.3 gm/dL (4.2-5.5) L 09/14/17 05:59 Globulin 2.4 gm/dL 09/14/17 05:59 Albumin/Globulin Ratio 1.4 (1.0-1.8) 09/14/17 05:59 TSH 0.53 uIU/ml (0.34-5.60) 09/11/17 05:58 Urine Source CATH 09/17/17 02:15 Urine Color YELLOW 09/17/17 02:15 Urine Clarity CLEAR (CLEAR) 09/17/17 02:15 Urine pH 7.0 (4.6 - 8.0) 09/17/17 02:15 Ur Specific [place] 1.010 (1.005-1.030) 09/17/17 02:15 Urine Protein NEGATIVE mg/dL (NEGATIVE) 09/17/17 02:15 Urine Glucose (UA) NEGATIVE mg/dL (NEGATIVE) 09/17/17 02:15 Urine Ketones NEGATIVE mg/dL (NEGATIVE) 09/17/17 02:15 Urine Blood NEGATIVE (NEGATIVE) 09/17/17 02:15 Urine Nitrate NEGATIVE (NEGATIVE) 09/17/17 02:15 Urine Bilirubin NEGATIVE (NEGATIVE) 09/17/17 02:15 Urine Urobilinogen 0.2 E.U./dL (0.2 - 1.0) 09/17/17 02:15 Ur Leukocyte Esterase NEGATIVE (NEGATIVE) 09/17/17 02:15 Urine RBC NONE SEEN /hpf (0-5) 09/17/17 02:15 Urine WBC NONE SEEN /hpf (0-5) 09/17/17 02:15 Ur Epithelial Cells OCCASIONAL /lpf (FEW) 09/17/17 02:15 Urine Bacteria NONE SEEN /hpf (NONE SEEN) 09/17/17 02:15 Helicobacter pylori Ab NEGATIVE (NEGATIVE) 09/11/17 09:50 - Physical Exam Vitals and I&O: Vital Signs Temp 97 F 09/17/17 06:00 Pulse 88 09/17/17 07:16 Resp 20 09/17/17 07:16 BP 147/68 09/17/17 06:00 Pulse Ox 98 09/17/17 07:16 Intake & Output 09/16/17 09/17/17 09/17/17 18:59 06:59 18:59 Intake Total 1100 830 Balance 1100 830 Weight (lbs) 60.781 kg Intake: Intake, IV Amount 1100 50 D5-0.45NS 1,000 ml @ 50 1000 mls/hr IV .Q20H [facility] Rx#: [id number] Piperacillin Sodium/ 100 50 Tazobact 3.375 gm In Sodium Chloride 0.9% 50 ml @ 100 mls/hr IV Q6HR [facility] Rx#:[id number] Oral 0 Tube Feeding 780 Other: # Voids 3 # Bowel Movements 1 Weight Source Bedscale Active Medications: Current Medications Acetaminophen (Tylenol) 650 mg GT Q4H PRN PRN Reason: Mild pain, temp above 100 Stop: 11/07/17 22:07 Al Hydrox/Mg Hydrox/Simethicone (Maalox) 30 ml GT Q4HR PRN PRN Reason: GI distress Stop: 11/07/17 22:12 Albuterol/Ipratropium (Duoneb Neb) 3 ml HHN Q4H PRN PRN Reason: Wheezing Stop: 11/07/17 19:41 Last Admin: 09/09/17 07:34 Dose: 3 ml Albuterol/Ipratropium (Duoneb Neb) 3 ml HHN [id number] [facility] Stop: 11/09/17 14:59 Last Admin: 09/17/17 07:14 Dose: 3 ml Amlodipine Besylate (Norvasc) 5 mg GT DAILY [facility] Stop: 11/12/17 20:44 Last Admin: 09/16/17 08:23 Dose: 5 mg Ascorbic Acid (Vitamin C) 500 mg GT DAILY [facility] Stop: 11/12/17 20:45 Last Admin: 04/03/18 08:23 Dose: 500 mg Budesonide (Pulmicort) 0.5 mg HHN BIDRT ANG Stop: 11/09/17 18:59 Last Admin: 09/17/17 07:16 Dose: 0.5 mg Donepezil HCl (Aricept) 10 mg GT HS ANG Stop: 11/12/17 20:48 Last Admin: 09/16/17 21:55 Dose: 10 mg Dextrose/Sodium Chloride (D5-0.45ns) 1,000 mls @ 50 mls/hr IV .Q20H ANG Stop: 11/09/17 08:14 Last Admin: 09/16/17 11:43 Dose: 50 mls/hr Piperacillin Sod/Tazobactam (Sod 3.375 gm/ Sodium Chloride) 50 mls @ 100 mls/ hr IV Q6HR [facility] Stop: 11/14/17 11:59 Last Admin: 09/17/17 05:58 Dose: 100 mls/hr Metronidazole (Flagyl) 500 mg in 100 mls @ 100 mls/hr IV Q8H ANG Stop: 11/16/17 07:59 Lactobacillus Rhamnosus (Culturelle 15b) 1 each GT DAILY [facility] Stop: 11/14/17 08:59 Last Admin: 09/16/17 08:23 Dose: 1 each Latanoprost (Xalatan 0.005% [facility]) 1 drop EACH EYE HS [facility] Stop: 11/08/17 20:59 Last Admin: 09/16/17 22:03 Dose: Not Given Lorazepam (Ativan) 1 mg GT Q6HR PRN; Protocol PRN Reason: Agitation Stop: 11/11/17 11:14 Last Admin: 09/15/17 02:59 Dose: 1 mg Losartan Potassium (Cozaar) 50 mg GT DAILY ANG Stop: 11/12/17 20:46 Last Admin: 09/16/17 08:23 Dose: 50 mg Magnesium Hydroxide (Milk Of Magnesia) 30 ml PO HS PRN PRN Reason: Constipation Stop: 11/07/17 22:20 Memantine (Namenda) 5 mg GT BID [facility] Stop: 11/14/17 16:59 Last Admin: 09/16/17 17:21 Dose: 5 mg Miscellaneous (Probiotic Screen) 1 ea MC PRN PRN PRN Reason: PROTOCOL Stop: 11/14/17 08:44 Miscellaneous (Zosyn Iv Per Pharmacy) 1 ea MC PRN PRN PRN Reason: PROTOCOL Stop: 11/14/17 09:53 Multivitamins/Vitamin C (Theragran) 1 tab GT DAILY ANG Stop: 11/12/17 20:54 Last Admin: 09/16/17 08:23 Dose: 1 tab Olanzapine (Zyprexa) 5 mg GT HS ANG PRN Reason: Protocol Stop: 11/12/17 20:54 Last Admin: 09/16/17 21:55 Dose: 5 mg Olanzapine (Zyprexa) 2.5 mg GT DAILY ANG PRN Reason: Protocol Stop: 11/12/17 20:55 Last Admin: 09/16/17 08:22 Dose: 2.5 mg Tamsulosin HCl (Flomax) 0.4 mg GT HS ANG Stop: 11/12/17 20:55 Last Admin: 09/16/17 21:55 Dose: 0.4 mg Zolpidem Tartrate (Ambien) 5 mg GT HS PRN PRN Reason: Insomnia Stop: 11/07/17 22:26 Last Admin: 09/14/17 01:16 Dose: 5 mg General: Alert HEENT: Atraumatic, PERRLA, EOMI Cardiovascular: Regular rate, Normal S1, Normal S2 Lungs: Other (rhonchi) Abdomen: Bowel sounds, Soft Extremities: Edema, no Clubbing, no Cyanosis Neurological: Normal gait Skin: no Rash Psych/Mental Status: Other (dementia) - Procedures Procedures: Procedures Procedure Code Date EGD PLACE GASTROSTOMY TUBE 90587 09/08/17 INSERTION OF FEEDING DEVICE INTO STOMACH, PERC APPROACH [id number] 09/08/17 Assessment/Plan - Assessment Assessment: leukocytosis pneumonia vs aspiration PNA htn bph glaucoma anemia dementia psychosis prerenal azotemia improving. s/p g-tube placement leukocytosis possible secondary to steroid use. - Plan Plan: repeat cbc pulmonary consult id consult psyche consult Zosyn IV per pharmacy Flagyl 500mg IV q8 gentle hydration gtube feeing per dietary Chest xray this AM add KUB UA neg DC solumedrol Hem/onc Nutritional Asmnt/Malnutr-PDOC - Dietary Evaluation Malnutrition Findings (Please click <Entered> for more info): Nutritional Asmnt/Malnutrition Start: 09/10/17 18: 01 Text: Status: Complete Freq: Document 09/10/17 18:01 LCHENG (Rec: 09/10/17 18:12 KISHORE [id number]) Nutritional Asmnt/Malnutrition Patient General Information Nutritional Screening High Risk Diagnosis PNA Pertinent Medical Hx/Surgical Hx PNA Subjective Information Pt seen sleeping at time of visit. Per nurse, pt failed swallow eval this morning. ST recommended strict NPO. MD may order PEG placement tommorrow . Current Diet Order/ Nutrition Support NPO Pertinent Medications vit C, D5-0.45ns, levaquin, theragran Pertinent Labs 09/10 BUN 32 Nutritional Hx/Data Height 1.73 m Height (Calculated Centimeters) 172.7 Current Weight (lbs) 70.307 kg Weight (Calculated Kilograms) 70.3 Weight (Calculated Grams) 46669.8 [place] Body Weight 154 Body Mass Index (BMI) 23.6 Weight Status Approriate GI Symptoms GI Symptoms None Last BM 09/08 Difficult in: Swallowing Skin Integrity/Comment: reddened to lower back scabs on both feet Estimated Nutritional Goals BEE in Kcals: Using Current wt Calories/Kcals/Kg 23-27 Kcals Calculated 1278-1631 Protein: Using Current wt Protein g/k-1.2 Protein Calculated 63-74 Fluid: ml 1610-1890ml (1ml/kcal) Nutritional Problem 1. Problem Problem inadequate energy intake Etiology pt failed swallow eval Signs/Symptoms: pt on NPO and need alternative nutrition route Intervention/Recommendation Comments 1. Monitor NPO status. 2. If TF needed, recommend initiating Fibersource HN at 20ml/hr for first 24hr, increase 10ml/hr q12hr to goal rate of 55ml/hr continuous. It provides 1584kcal, 71g protein, 1069ml free water, meeting 100% of nutritional needs. 3. Monitor TF rate, tolerance, wt weekly, skin integrity and labs 4. F/U as high risk in 2-3 days, 09/12-09/13 Expected Outcomes/Goals Expected Outcomes/Goals 1. Pt to meet at least 75% of nutritional needs via nutrition support with tolerance 2. Wt stability, skin to remain intact, labs to approach WNL.
[2017-09-17] MEDS: Multivitamin Tab GT SCH (08:37)
[2017-09-17] MEDS: metroNIDAZOLE 500mg/NS 100mL 500 MG/100 ML BAG IV SCH ×2 (08:37→15:25)
[2017-09-17] MEDS: Lactobacillus Rhamnosus GG 15 Billion CFU CAP.SPRINK GT SCH (08:38)
--- NOTE | 2017-09-17 09:01 | Diagnostic Imaging Report ---
Portable chest x-ray HISTORY: Shortness of breath Compared with prior exam of September 14, 2017, no change in bilateral lower lobe interstitial lung changes with an overall appearance consistent with a chronic etiology. The heart appears enlarged. IMPRESSION: 1. No significant change in the cardiopulmonary status as noted above.
--- NOTE | 2017-09-17 09:04 | Diagnostic Imaging Report ---
KUB abdominal film (portable) HISTORY: Leukocytosis, pain The exam demonstrates stool-filled ascending colon. Somewhat distended stool-filled rectum also noted. Bowel gas pattern otherwise nonspecific. No free intraperitoneal air. Surgical clips noted in the right upper quadrant consistent with prior cholecystectomy. Gastrostomy tube noted. Surgical changes seen about the right hip. IMPRESSION: 1. Somewhat distended stool-filled rectum along with stool-filled ascending colon in an otherwise nonspecific bowel gas appearance. 2. Surgical changes consistent with prior cholecystectomy
--- NOTE | 2017-09-17 11:06 | Consultation ---
DATE OF CONSULTATION: HEMATOLOGY ONCOLOGY CONSULTATION REFERRING PHYSICIAN: Dr. Jarrell. REASON FOR CONSULTATION: Elevated white count. HISTORY OF PRESENT ILLNESS: The patient is an 87-year-old male who was admitted with shortness of breath, cough, and x-ray showing evidence of pneumonia. The patient also had fever and he was noted to have rising white count. Therefore, I was asked to evaluate. PAST MEDICAL HISTORY: Dementia, hypertension, benign prostatic hypertrophy, anemia, glaucoma. MEDICATIONS: Reviewed. SOCIAL HISTORY: Lives in a nursing facility. PHYSICAL EXAMINATION: GENERAL: On exam, the patient is not in distress, coughing. VITAL SIGNS: Blood pressure is stable. HEENT: Atraumatic. Mild pallor. NECK: No lymphadenopathy. CHEST: Scattered rhonchi. ABDOMEN: Soft, gastric tube in place. EXTREMITIES: Wasted muscles. LAB WORK: White count 27.7, hemoglobin 14.2, platelets 233, bands 8%, neutrophils 79%. ASSESSMENT: Reactive leukocytosis secondary to infectious process, pneumonia. I expect improvement of the white count with improvement of the underlying pneumonia. I do not suspect leukemia at this time. Thank you, Dr. Jarrell for the opportunity to participate in the care of this interesting case. JOB# [id number]
--- NOTE | 2017-09-17 15:17 | Progress Notes ---
DATE: 09/17/2017 SUBJECTIVE: Case was discussed with staff of the patient, reviewed records. The patient could have poor insight, demented, confused, unable to carry on a conversation or make safe plan for self-care. Continues to have poor insight, continues to have multiple medical issues and they have mittens on his hands, so he G-tube and he is compliant for the medication with no side effects, no sedation, no nausea, no extrapyramidal symptoms. I did increase Namenda dose and we will continue him. Thank you very much for allowing me to participate in the care of this patient. JOB# [id number]
[2017-09-17] MEDS: D5-0.45NS 1,000 ML IV SCH (17:00)
--- NOTE | 2017-09-17 23:26 | Infectious Disease Prog Note ---
Infectious Disease Subjective - Review of Systems Service Date: 09/17/17 Subjective: No change, no fever. Infectious Disease Objective - Results Result Diagrams: 09/19/17 05:00 09/19/17 05:00 Recent Labs: Laboratory Last Values WBC 27.7 Th/cmm (4.8-10.8) H* 09/17/17 06:18 RBC 4.72 Mil/cmm (3.80-5.80) 09/17/17 06:18 Hgb 14.2 gm/dL (12-16) 09/17/17 06:18 Hct 41.8 % (41.0-60) 09/17/17 06:18 MCV 88.5 fl (80-99) 09/17/17 06:18 MCH 30.0 pg (27.0-31.0) 09/17/17 06:18 MCHC Differential 34.0 pg (28.0-36.0) 09/17/17 06:18 RDW 14.1 % (11.5-20.0) 09/17/17 06:18 Plt Count 233 Th/cmm (150-400) D 09/17/17 06:18 MPV 8.0 fl 09/17/17 06:18 Neutrophils % BANDER OPERATOR 09/16/17 08:07 Band Neutrophils % 8 % (0-10) 09/17/17 06:18 Lymphocytes % BANDER OPERATOR 09/16/17 08:07 Monocytes % BANDER OPERATOR 09/16/17 08:07 Eosinophils % BANDER OPERATOR 09/16/17 08:07 Basophils % BANDER OPERATOR 09/16/17 08:07 Neutrophils (Manual) 79 % (40-80) 09/17/17 06:18 Lymphocytes 11 % (20-50) L 09/17/17 06:18 Monocytes 2 % (2-10) 09/17/17 06:18 Platelet Estimate ADEQUATE (NORMAL) 09/14/17 05:59 PT 11.7 SECONDS (9.5-11.5) H 09/11/17 05:58 INR 1.12 (0.5-1.4) 09/11/17 05:58 Specimen Source Arterial 09/11/17 08:20 Sample Site RB 09/11/17 08:20 pH 7.45 (7.35-7.45) 09/11/17 08:20 pCO2 35.0 mmHg (35.0-45.0) 09/11/17 08:20 pO2 66.0 mmHg (80.0-100.0) L 09/11/17 08:20 HCO3 25.3 mEq/L (20.0-26.0) 09/11/17 08:20 Base Excess 0.6 mEq/L (-3.0-3.0) 09/11/17 08:20 O2 Saturation 94.0 % (92.0-100.0) 09/11/17 08:20 Franki Test POSITIVE 09/11/17 08:20 Vent Rate NA 09/11/17 08:20 Inspired O2 21 09/11/17 08:20 Tidal Volume NA 09/11/17 08:20 PEEP NA 09/11/17 08:20 Pressure (ins/psv/peep) NA 09/11/17 08:20 Critical Value SANDEEP CAMPOS 09/11/17 08:20 Sodium 141 mEq/L (136-145) 09/14/17 05:59 Potassium 3.9 mEq/L (3.5-5.1) 09/14/17 05:59 Chloride 108 mEq/L (98-107) H 09/14/17 05:59 Carbon Dioxide 26.3 mEq/L (21.0-31.0) 09/14/17 05:59 Anion Gap 10.6 (7.0-16.0) 09/14/17 05:59 BUN 32 mg/dL (7-25) H 09/14/17 05:59 Creatinine 0.7 mg/dL (0.7-1.3) 09/14/17 05:59 Est GFR ( Amer) TNP 09/14/17 05:59 Est GFR (Non-Af Amer) TNP 09/14/17 05:59 BUN/Creatinine Ratio 45.7 09/14/17 05:59 Glucose 187 mg/dL (70-105) H 09/14/17 05:59 POC Glucose 166 MG/DL (70 - 105) H 09/15/17 11:54 Calcium 9.3 mg/dL (8.6-10.3) 09/14/17 05:59 Total Bilirubin 0.6 mg/dL (0.3-1.0) 09/14/17 05:59 AST 13 U/L (13-39) 09/14/17 05:59 ALT 16 U/L (7-52) 09/14/17 05:59 Alkaline Phosphatase 97 U/L (34-104) 09/14/17 05:59 Troponin I 0.03 ng/mL (0.01-0.05) 09/09/17 10:15 B-Natriuretic Peptide 88.6 pg/mL (5.0-100.0) 09/10/17 05:40 Total Protein 5.7 gm/dL (6.0-8.3) L 09/14/17 05:59 Albumin 3.3 gm/dL (4.2-5.5) L 09/14/17 05:59 Globulin 2.4 gm/dL 09/14/17 05:59 Albumin/Globulin Ratio 1.4 (1.0-1.8) 09/14/17 05:59 TSH 0.53 uIU/ml (0.34-5.60) 09/11/17 05:58 Urine Source CATH 09/17/17 02:15 Urine Color YELLOW 09/17/17 02:15 Urine Clarity CLEAR (CLEAR) 09/17/17 02:15 Urine pH 7.0 (4.6 - 8.0) 09/17/17 02:15 Ur Specific [place] 1.010 (1.005-1.030) 09/17/17 02:15 Urine Protein NEGATIVE mg/dL (NEGATIVE) 09/17/17 02:15 Urine Glucose (UA) NEGATIVE mg/dL (NEGATIVE) 09/17/17 02:15 Urine Ketones NEGATIVE mg/dL (NEGATIVE) 09/17/17 02:15 Urine Blood NEGATIVE (NEGATIVE) 09/17/17 02:15 Urine Nitrate NEGATIVE (NEGATIVE) 09/17/17 02:15 Urine Bilirubin NEGATIVE (NEGATIVE) 09/17/17 02:15 Urine Urobilinogen 0.2 E.U./dL (0.2 - 1.0) 09/17/17 02:15 Ur Leukocyte Esterase NEGATIVE (NEGATIVE) 09/17/17 02:15 Urine RBC NONE SEEN /hpf (0-5) 09/17/17 02:15 Urine WBC NONE SEEN /hpf (0-5) 09/17/17 02:15 Ur Epithelial Cells OCCASIONAL /lpf (FEW) 09/17/17 02:15 Urine Bacteria NONE SEEN /hpf (NONE SEEN) 09/17/17 02:15 Helicobacter pylori Ab NEGATIVE (NEGATIVE) 09/11/17 09:50 - Physical Exam Vitals and I&O: Vital Signs Temp 97.9 F 09/17/17 20:00 Pulse 85 09/17/17 20:00 Resp 18 09/17/17 20:00 BP 133/73 09/17/17 20:00 Pulse Ox 96 09/17/17 20:00 Intake & Output 09/17/17 09/17/17 09/18/17 06:59 18:59 06:59 Intake Total 880 1251.667 Balance 880 1251.667 Weight (lbs) 60.781 kg Intake: Intake, IV Amount 100 1251.667 D5-0.45NS 1,000 ml @ 50 1001.667 mls/hr IV .Q20H [facility] Rx#: [id number] Piperacillin Sodium/ 100 50 Tazobact 3.375 gm In Sodium Chloride 0.9% 50 ml @ 100 mls/hr IV Q6HR [facility] Rx#:[id number] metroNIDAZOLE 500mg/NS 200 100mL 500 mg In 100 ml @ 100 mls/hr IV Q8H [facility] Rx# :[id number] Oral 0 Tube Feeding 780 Other: # Voids 3 # Bowel Movements 1 Stool Characteristics Soft Weight Source Bedscale Active Medications: Current Medications Acetaminophen (Tylenol) 650 mg GT Q4H PRN PRN Reason: Mild pain, temp above 100 Stop: 11/07/17 22:07 Al Hydrox/Mg Hydrox/Simethicone (Maalox) 30 ml GT Q4HR PRN PRN Reason: GI distress Stop: 11/07/17 22:12 Albuterol/Ipratropium (Duoneb Neb) 3 ml HHN Q4H PRN PRN Reason: Wheezing Stop: 11/07/17 19:41 Last Admin: 09/09/17 07:34 Dose: 3 ml Albuterol/Ipratropium (Duoneb Neb) 3 ml HHN [id number] [facility] Stop: 11/09/17 14:59 Last Admin: 09/17/17 19:02 Dose: 3 ml Amlodipine Besylate (Norvasc) 5 mg GT DAILY [facility] Stop: 11/12/17 20:44 Last Admin: 09/17/17 08:37 Dose: 5 mg Ascorbic Acid (Vitamin C) 500 mg GT DAILY ANG Stop: 11/12/17 20:45 Last Admin: 09/17/17 08:37 Dose: 500 mg Budesonide (Pulmicort) 0.5 mg HHN BIDRT ANG Stop: 11/09/17 18:59 Last Admin: 09/17/17 19:02 Dose: 0.5 mg Docusate Sodium (Colace) 100 mg PO DAILY ANG Stop: 11/17/17 08:59 Donepezil HCl (Aricept) 10 mg GT HS ANG Stop: 11/12/17 20:48 Last Admin: 09/17/17 22:17 Dose: 10 mg Dextrose/Sodium Chloride (D5-0.45ns) 1,000 mls @ 50 mls/hr IV .Q20H ANG Stop: 11/09/17 08:14 Last Infusion: 09/17/17 17:59 Dose: 50 mls/hr Piperacillin Sod/Tazobactam (Sod 3.375 gm/ Sodium Chloride) 50 mls @ 100 mls/ hr IV Q6HR ANG Stop: 11/14/17 11:59 Last Admin: 09/17/17 17:01 Dose: 100 mls/hr Metronidazole (Flagyl) 500 mg in 100 mls @ 100 mls/hr IV Q8H ANG Stop: 11/16/17 07:59 Last Infusion: 09/17/17 16:30 Dose: Infused Lactobacillus Rhamnosus (Culturelle 15b) 1 each GT DAILY ANG Stop: 11/14/17 08:59 Last Admin: 09/17/17 08:38 Dose: 1 each Latanoprost (Xalatan 0.005% [facility]) 1 drop EACH EYE HS ANG Stop: 11/08/17 20:59 Last Admin: 09/16/17 22:03 Dose: Not Given Lorazepam (Ativan) 1 mg GT Q6HR PRN; Protocol PRN Reason: Agitation Stop: 11/11/17 11:14 Last Admin: 09/15/17 02:59 Dose: 1 mg Losartan Potassium (Cozaar) 50 mg GT DAILY ANG Stop: 11/12/17 20:46 Last Admin: 09/17/17 08:38 Dose: 50 mg Magnesium Hydroxide (Milk Of Magnesia) 30 ml PO HS PRN PRN Reason: Constipation Stop: 11/07/17 22:20 Last Admin: 09/17/17 09:31 Dose: 30 ml Memantine (Namenda) 5 mg GT BID ANG Stop: 11/14/17 16:59 Last Admin: 09/17/17 16:58 Dose: 5 mg Miscellaneous (Probiotic Screen) 1 ea MC PRN PRN PRN Reason: PROTOCOL Stop: 11/14/17 08:44 Miscellaneous (Zosyn Iv Per Pharmacy) 1 ea MC PRN PRN PRN Reason: PROTOCOL Stop: 11/14/17 09:53 Multivitamins/Vitamin C (Theragran) 1 tab GT DAILY ANG Stop: 11/12/17 20:54 Last Admin: 09/17/17 08:37 Dose: 1 tab Olanzapine (Zyprexa) 5 mg GT HS ANG PRN Reason: Protocol Stop: 11/12/17 20:54 Last Admin: 09/17/17 22:17 Dose: 5 mg Olanzapine (Zyprexa) 2.5 mg GT DAILY ANG PRN Reason: Protocol Stop: 11/12/17 20:55 Last Admin: 09/17/17 08:38 Dose: 2.5 mg Tamsulosin HCl (Flomax) 0.4 mg GT HS ANG Stop: 11/12/17 20:55 Last Admin: 09/17/17 22:18 Dose: 0.4 mg Zolpidem Tartrate (Ambien) 5 mg GT HS PRN PRN Reason: Insomnia Stop: 11/07/17 22:26 Last Admin: 09/14/17 01:16 Dose: 5 mg General: no acute distress, well developed, well nourished HEENT: atraumatic, normocephalic, PERRLA, EOMI Neck: supple, no thyromegaly Cardiovascular: S1S2, regular Lungs: clear to percussion, rhonchi Abdomen: soft, no tender, no distended, no mass, no rebound Extremities: no cyanosis, no clubbing, no edema Neurological: awake Skin: intact - Procedures Procedures: Procedures Procedure Code Date EGD PLACE GASTROSTOMY TUBE 23700 09/08/17 INSERTION OF FEEDING DEVICE INTO STOMACH, PERC APPROACH [id number] 09/08/17 Infectious Disease Assmt/Plan - Assessment Assessment: 1. Pneumonia. 2. Dementia. 3. Psychosis. 4. Anemia. 5. Benign prostatic hypertrophy. 6. Hypertension. 7. Glaucoma. 8. Prerenal azotemia. 9. Leukocytosis. - Plan Plan: Continue zosyn. add flagyl and solumedrol dc'ed Nutritional Asmnt/Malnutr-PDOC - Dietary Evaluation Malnutrition Findings (Please click <Entered> for more info): Nutritional Asmnt/Malnutrition Start: 09/10/17 18: 01 Text: Status: Complete Freq: Document 09/10/17 18:01 JELLY (Rec: 09/10/17 18:12 LCHENG [id number]) Nutritional Asmnt/Malnutrition Patient General Information Nutritional Screening High Risk Diagnosis PNA Pertinent Medical Hx/Surgical Hx PNA Subjective Information Pt seen sleeping at time of visit. Per nurse, pt failed swallow eval this morning. ST recommended strict NPO. MD may order PEG placement tommorrow . Current Diet Order/ Nutrition Support NPO Pertinent Medications vit C, D5-0.45ns, levaquin, theragran Pertinent Labs 09/10 BUN 32 Nutritional Hx/Data Height 1.73 m Height (Calculated Centimeters) 172.7 Current Weight (lbs) 70.307 kg Weight (Calculated Kilograms) 70.3 Weight (Calculated Grams) 80529.8 [place] Body Weight 154 Body Mass Index (BMI) 23.6 Weight Status Approriate GI Symptoms GI Symptoms None Last BM 09/08 Difficult in: Swallowing Skin Integrity/Comment: reddened to lower back scabs on both feet Estimated Nutritional Goals BEE in Kcals: Using Current wt Calories/Kcals/Kg 23-27 Kcals Calculated 6497-5096 Protein: Using Current wt Protein g/k-1.2 Protein Calculated 63-74 Fluid: ml 1610-1890ml (1ml/kcal) Nutritional Problem 1. Problem Problem inadequate energy intake Etiology pt failed swallow eval Signs/Symptoms: pt on NPO and need alternative nutrition route Intervention/Recommendation Comments 1. Monitor NPO status. 2. If TF needed, recommend initiating Fibersource HN at 20ml/hr for first 24hr, increase 10ml/hr q12hr to goal rate of 55ml/hr continuous. It provides 1584kcal, 71g protein, 1069ml free water, meeting 100% of nutritional needs. 3. Monitor TF rate, tolerance, wt weekly, skin integrity and labs 4. F/U as high risk in 2-3 days, 09/12-09/13 Expected Outcomes/Goals Expected Outcomes/Goals 1. Pt to meet at least 75% of nutritional needs via nutrition support with tolerance 2. Wt stability, skin to remain intact, labs to approach WNL.
--- NOTE | 2017-09-18 01:35 | Progress Notes ---
DATE: 09/17/2017 PROBLEM LIST: 1. Respiratory failure, improved. 2. Encephalopathy, chronic Alzheimer's, stable. 3. Dysphagia, aphasia, and G-tube. 4. Bilateral patchy pneumonia with leukocytosis, improving. SYMPTOMS: Nil. SUBJECTIVE: The patient is obtunded, no respiratory distress, etc. Still has some upper airway secretory noise, etc. PHYSICAL EXAMINATION: VITAL SIGNS: T-max 97.2, blood pressure 158/80, respirations 18, saturation is 98. NECK: Veins not visualized. CHEST: Shows diminished air entry with occasional rhonchi. HEART: Regular. ABDOMEN: Soft, nontender. LABORATORY DATA: The patient's white count is 27,000, I still believe it is ____ because of steroid. PLANS AND SUGGESTIONS: We will go ahead and continue current treatment. We will repeat another chest lab test tomorrow to see how it is and go from there. Please note that chest x-ray showed no acute new changes and we go from there. JOB# [id number]
[2017-09-18] MEDS: metroNIDAZOLE 500mg/NS 100mL 500 MG/100 ML BAG IV SCH ×3 (03:06→16:58)
[2017-09-18] MEDS: Albuterol/Ipratropium Neb 3 ML AERS HHN SCH ×4 (06:47→19:01)
[2017-09-18] MEDS: Budesonide 0.5 Mg/2 mL Ud HHN SCH ×2 (06:48→19:01)
[2017-09-18 07:15] LABS: EOSINOPHILE ABSOLUTE 0.2 Th/cmm (0.1-0.4); HEMATOCRIT 40.9 % (41.0-60); HEMOGLOBIN 14.1 gm/dL (12-16); LYMPHOCYTE ABSOLUTE 2.4 Th/cmm (1.5-3.0); MANUAL DIFF REQUIRED? YES; MEAN CELL VOLUME 88.2 fl (80-99); MEAN CORPUSCULAR HEMOGLOBIN 30.4 pg (27.0-31.0); MEAN CORPUSCULAR HGB CONC 34.5 pg (28.0-36.0); MEAN PLATELET VOLUME 7.9 fl; MONOCYTE ABSOLUTE 0.6 Th/cmm (0.3-1.0); NEUTROPHILE ABSOLUTE 26.7 Th/cmm (1.8-8.0); PLATELET COUNT 341 Th/cmm (150-400); RED BLOOD COUNT 4.64 Mil/cmm (3.80-5.80); RED CELL DISTRIBUTION WIDTH 14.3 % (11.5-20.0)
[2017-09-18 07:29] LABS: WHITE BLOOD COUNT 29.9 Th/cmm (4.8-10.8)
[2017-09-18 08:22] LABS: LYMPHOCYTE 13 % (20-50); MONOCYTE 6 % (2-10); NEUTROPHILS 81 % (40-80); PLATELET ESTIMATE ADEQUATE (NORMAL); TOTAL CELLS COUNTED 100
--- NOTE | 2017-09-18 10:11 | General Progress Note ---
Subjective - Review of Systems Service Date: 09/18/17 Subjective: not in distress Objective - Results Result Diagrams: 09/18/17 05:40 09/14/17 05:59 Recent Labs: Laboratory Last Values WBC 29.9 Th/cmm (4.8-10.8) H* 09/18/17 05:40 RBC 4.64 Mil/cmm (3.80-5.80) 09/18/17 05:40 Hgb 14.1 gm/dL (12-16) 09/18/17 05:40 Hct 40.9 % (41.0-60) L 09/18/17 05:40 MCV 88.2 fl (80-99) 09/18/17 05:40 MCH 30.4 pg (27.0-31.0) 09/18/17 05:40 MCHC Differential 34.5 pg (28.0-36.0) 09/18/17 05:40 RDW 14.3 % (11.5-20.0) 09/18/17 05:40 Plt Count 341 Th/cmm (150-400) D 09/18/17 05:40 MPV 7.9 fl 09/18/17 05:40 Neutrophils % TELEPHONE SERVICE REPRESENTATIVE 09/16/17 08:07 Band Neutrophils % 8 % (0-10) 09/17/17 06:18 Lymphocytes % TELEPHONE SERVICE REPRESENTATIVE 09/16/17 08:07 Monocytes % TELEPHONE SERVICE REPRESENTATIVE 09/16/17 08:07 Eosinophils % TELEPHONE SERVICE REPRESENTATIVE 09/16/17 08:07 Basophils % TELEPHONE SERVICE REPRESENTATIVE 09/16/17 08:07 Neutrophils (Manual) 81 % (40-80) H 09/18/17 05:40 Lymphocytes 13 % (20-50) L 09/18/17 05:40 Monocytes 6 % (2-10) 09/18/17 05:40 Platelet Estimate ADEQUATE (NORMAL) 09/18/17 05:40 PT 11.7 SECONDS (9.5-11.5) H 09/11/17 05:58 INR 1.12 (0.5-1.4) 09/11/17 05:58 Specimen Source Arterial 09/11/17 08:20 Sample Site RB 09/11/17 08:20 pH 7.45 (7.35-7.45) 09/11/17 08:20 pCO2 35.0 mmHg (35.0-45.0) 09/11/17 08:20 pO2 66.0 mmHg (80.0-100.0) L 09/11/17 08:20 HCO3 25.3 mEq/L (20.0-26.0) 09/11/17 08:20 Base Excess 0.6 mEq/L (-3.0-3.0) 09/11/17 08:20 O2 Saturation 94.0 % (92.0-100.0) 09/11/17 08:20 Franki Test POSITIVE 09/11/17 08:20 Vent Rate NA 09/11/17 08:20 Inspired O2 21 09/11/17 08:20 Tidal Volume NA 09/11/17 08:20 PEEP NA 09/11/17 08:20 Pressure (ins/psv/peep) NA 09/11/17 08:20 Critical Value SANDEEP CAMPOS 09/11/17 08:20 Sodium 141 mEq/L (136-145) 09/14/17 05:59 Potassium 3.9 mEq/L (3.5-5.1) 09/14/17 05:59 Chloride 108 mEq/L (98-107) H 09/14/17 05:59 Carbon Dioxide 26.3 mEq/L (21.0-31.0) 09/14/17 05:59 Anion Gap 10.6 (7.0-16.0) 09/14/17 05:59 BUN 32 mg/dL (7-25) H 09/14/17 05:59 Creatinine 0.7 mg/dL (0.7-1.3) 09/14/17 05:59 Est GFR ( Amer) TNP 09/14/17 05:59 Est GFR (Non-Af Amer) TNP 09/14/17 05:59 BUN/Creatinine Ratio 45.7 09/14/17 05:59 Glucose 187 mg/dL (70-105) H 09/14/17 05:59 POC Glucose 166 MG/DL (70 - 105) H 09/15/17 11:54 Calcium 9.3 mg/dL (8.6-10.3) 09/14/17 05:59 Total Bilirubin 0.6 mg/dL (0.3-1.0) 09/14/17 05:59 AST 13 U/L (13-39) 09/14/17 05:59 ALT 16 U/L (7-52) 09/14/17 05:59 Alkaline Phosphatase 97 U/L (34-104) 09/14/17 05:59 Troponin I 0.03 ng/mL (0.01-0.05) 09/09/17 10:15 B-Natriuretic Peptide 88.6 pg/mL (5.0-100.0) 09/10/17 05:40 Total Protein 5.7 gm/dL (6.0-8.3) L 09/14/17 05:59 Albumin 3.3 gm/dL (4.2-5.5) L 09/14/17 05:59 Globulin 2.4 gm/dL 09/14/17 05:59 Albumin/Globulin Ratio 1.4 (1.0-1.8) 09/14/17 05:59 TSH 0.53 uIU/ml (0.34-5.60) 09/11/17 05:58 Urine Source CATH 09/17/17 02:15 Urine Color YELLOW 09/17/17 02:15 Urine Clarity CLEAR (CLEAR) 09/17/17 02:15 Urine pH 7.0 (4.6 - 8.0) 09/17/17 02:15 Ur Specific [place] 1.010 (1.005-1.030) 09/17/17 02:15 Urine Protein NEGATIVE mg/dL (NEGATIVE) 09/17/17 02:15 Urine Glucose (UA) NEGATIVE mg/dL (NEGATIVE) 09/17/17 02:15 Urine Ketones NEGATIVE mg/dL (NEGATIVE) 09/17/17 02:15 Urine Blood NEGATIVE (NEGATIVE) 09/17/17 02:15 Urine Nitrate NEGATIVE (NEGATIVE) 09/17/17 02:15 Urine Bilirubin NEGATIVE (NEGATIVE) 09/17/17 02:15 Urine Urobilinogen 0.2 E.U./dL (0.2 - 1.0) 09/17/17 02:15 Ur Leukocyte Esterase NEGATIVE (NEGATIVE) 09/17/17 02:15 Urine RBC NONE SEEN /hpf (0-5) 09/17/17 02:15 Urine WBC NONE SEEN /hpf (0-5) 09/17/17 02:15 Ur Epithelial Cells OCCASIONAL /lpf (FEW) 09/17/17 02:15 Urine Bacteria NONE SEEN /hpf (NONE SEEN) 09/17/17 02:15 Helicobacter pylori Ab NEGATIVE (NEGATIVE) 09/11/17 09:50 - Physical Exam Vitals and I&O: Vital Signs Temp 98.0 F 09/18/17 08:26 Pulse 90 09/18/17 08:26 Resp 18 09/18/17 08:26 BP 132/65 09/18/17 08:26 Pulse Ox 96 09/18/17 08:26 Intake & Output 09/17/17 09/18/17 09/18/17 18:59 06:59 18:59 Intake Total 1301.667 930 Balance 1301.667 930 Weight (lbs) 60.781 kg Intake: Intake, IV Amount 1301.667 150 D5-0.45NS 1,000 ml @ 50 1001.667 mls/hr IV .Q20H [facility] Rx#: [id number] Piperacillin Sodium/ 100 50 Tazobact 3.375 gm In Sodium Chloride 0.9% 50 ml @ 100 mls/hr IV Q6HR [facility] Rx#:[id number] metroNIDAZOLE 500mg/NS 200 100 100mL 500 mg In 100 ml @ 100 mls/hr IV Q8H [facility] Rx# :[id number] Tube Feeding 780 Other: # Voids 4 # Bowel Movements 0 Stool Characteristics Soft Soft Weight Source Bedscale Active Medications: Current Medications Acetaminophen (Tylenol) 650 mg GT Q4H PRN PRN Reason: Mild pain, temp above 100 Stop: 11/07/17 22:07 Last Admin: 09/18/17 01:21 Dose: 650 mg Al Hydrox/Mg Hydrox/Simethicone (Maalox) 30 ml GT Q4HR PRN PRN Reason: GI distress Stop: 11/07/17 22:12 Albuterol/Ipratropium (Duoneb Neb) 3 ml HHN Q4H PRN PRN Reason: Wheezing Stop: 11/07/17 19:41 Last Admin: 09/09/17 07:34 Dose: 3 ml Albuterol/Ipratropium (Duoneb Neb) 3 ml HHN [id number] [facility] Stop: 11/09/17 14:59 Last Admin: 09/18/17 06:47 Dose: 3 ml Amlodipine Besylate (Norvasc) 5 mg GT DAILY [facility] Stop: 11/12/17 20:44 Last Admin: 09/17/17 08:37 Dose: 5 mg Ascorbic Acid (Vitamin C) 500 mg GT DAILY ANG Stop: 11/12/17 20:45 Last Admin: 09/17/17 08:37 Dose: 500 mg Budesonide (Pulmicort) 0.5 mg HHN BIDRT ANG Stop: 11/09/17 18:59 Last Admin: 09/18/17 06:48 Dose: 0.5 mg Docusate Sodium (Colace) 100 mg PO DAILY ANG Stop: 11/17/17 08:59 Donepezil HCl (Aricept) 10 mg GT HS ANG Stop: 11/12/17 20:48 Last Admin: 09/17/17 22:17 Dose: 10 mg Dextrose/Sodium Chloride (D5-0.45ns) 1,000 mls @ 50 mls/hr IV .Q20H ANG Stop: 11/09/17 08:14 Last Infusion: 09/17/17 17:59 Dose: 50 mls/hr Piperacillin Sod/Tazobactam (Sod 3.375 gm/ Sodium Chloride) 50 mls @ 100 mls/ hr IV Q6HR ANG Stop: 11/14/17 11:59 Last Admin: 09/18/17 06:14 Dose: 100 mls/hr Metronidazole (Flagyl) 500 mg in 100 mls @ 100 mls/hr IV Q8H ANG Stop: 11/16/17 07:59 Last Admin: 09/18/17 09:17 Dose: 100 mls/hr Lactobacillus Rhamnosus (Culturelle 15b) 1 each GT DAILY ANG Stop: 11/14/17 08:59 Last Admin: 09/17/17 08:38 Dose: 1 each Latanoprost (Xalatan 0.005% Oph Soln) 1 drop EACH EYE HS ANG Stop: 11/08/17 20:59 Last Admin: 09/18/17 00:07 Dose: Not Given Lorazepam (Ativan) 1 mg GT Q6HR PRN; Protocol PRN Reason: Agitation Stop: 11/11/17 11:14 Last Admin: 09/18/17 03:06 Dose: 1 mg Losartan Potassium (Cozaar) 50 mg GT DAILY ANG Stop: 11/12/17 20:46 Last Admin: 09/17/17 08:38 Dose: 50 mg Magnesium Hydroxide (Milk Of Magnesia) 30 ml PO HS PRN PRN Reason: Constipation Stop: 11/07/17 22:20 Last Admin: 09/17/17 09:31 Dose: 30 ml Memantine (Namenda) 5 mg GT BID ANG Stop: 11/14/17 16:59 Last Admin: 09/17/17 16:58 Dose: 5 mg Miscellaneous (Probiotic Screen) 1 ea PRN PRN PRN Reason: PROTOCOL Stop: 11/14/17 08:44 Miscellaneous (Zosyn Iv Per Pharmacy) 1 ea PRN PRN PRN Reason: PROTOCOL Stop: 11/14/17 09:53 Multivitamins/Vitamin C (Theragran) 1 tab GT DAILY ANG Stop: 11/12/17 20:54 Last Admin: 09/17/17 08:37 Dose: 1 tab Olanzapine (Zyprexa) 5 mg GT HS ANG PRN Reason: Protocol Stop: 11/12/17 20:54 Last Admin: 09/17/17 22:17 Dose: 5 mg Olanzapine (Zyprexa) 2.5 mg GT DAILY ANG PRN Reason: Protocol Stop: 11/12/17 20:55 Last Admin: 09/17/17 08:38 Dose: 2.5 mg Tamsulosin HCl (Flomax) 0.4 mg GT HS ANG Stop: 11/12/17 20:55 Last Admin: 09/17/17 22:18 Dose: 0.4 mg Zolpidem Tartrate (Ambien) 5 mg GT HS PRN PRN Reason: Insomnia Stop: 11/07/17 22:26 Last Admin: 09/14/17 01:16 Dose: 5 mg General: Alert HEENT: Atraumatic, PERRLA, EOMI Cardiovascular: Regular rate, Normal S1, Normal S2 Lungs: Other (rhonchi) Abdomen: Bowel sounds, Soft Extremities: Edema, no Clubbing, no Cyanosis Neurological: Normal gait, Other (bed ridden) Skin: no Rash Psych/Mental Status: Other (dementia) - Procedures Procedures: Procedures Procedure Code Date EGD PLACE GASTROSTOMY TUBE 41603 09/08/17 INSERTION OF FEEDING DEVICE INTO STOMACH, PERC APPROACH [id number] 09/08/17 Assessment/Plan - Assessment Assessment: * Reactive leukocytosis * pneumonia Follow cbc Nutritional Asmnt/Malnutr-PDOC - Dietary Evaluation Malnutrition Findings (Please click <Entered> for more info): Nutritional Asmnt/Malnutrition Start: 09/10/17 18: 01 Text: Status: Complete Freq: Document 09/10/17 18:01 OSMANJUAN CARLOS (Rec: 09/10/17 18:12 JELLY [email or web address]) Nutritional Asmnt/Malnutrition Patient General Information Nutritional Screening High Risk Diagnosis PNA Pertinent Medical Hx/Surgical Hx PNA Subjective Information Pt seen sleeping at time of visit. Per nurse, pt failed swallow eval this morning. ST recommended strict NPO. MD may order PEG placement tommorrow . Current Diet Order/ Nutrition Support NPO Pertinent Medications vit C, D5-0.45ns, levaquin, theragran Pertinent Labs 09/10 BUN 32 Nutritional Hx/Data Height 1.73 m Height (Calculated Centimeters) 172.7 Current Weight (lbs) 70.307 kg Weight (Calculated Kilograms) 70.3 Weight (Calculated Grams) 08698.8 [place] Body Weight 154 Body Mass Index (BMI) 23.6 Weight Status Approriate GI Symptoms GI Symptoms None Last BM 09/08 Difficult in: Swallowing Skin Integrity/Comment: reddened to lower back scabs on both feet Estimated Nutritional Goals BEE in Kcals: Using Current wt Calories/Kcals/Kg 23-27 Kcals Calculated 0754-5984 Protein: Using Current wt Protein g/k-1.2 Protein Calculated 63-74 Fluid: ml 1610-1890ml (1ml/kcal) Nutritional Problem 1. Problem Problem inadequate energy intake Etiology pt failed swallow eval Signs/Symptoms: pt on NPO and need alternative nutrition route Intervention/Recommendation Comments 1. Monitor NPO status. 2. If TF needed, recommend initiating Fibersource HN at 20ml/hr for first 24hr, increase 10ml/hr q12hr to goal rate of 55ml/hr continuous. It provides 1584kcal, 71g protein, 1069ml free water, meeting 100% of nutritional needs. 3. Monitor TF rate, tolerance, wt weekly, skin integrity and labs 4. F/U as high risk in 2-3 days, 09/12-09/13 Expected Outcomes/Goals Expected Outcomes/Goals 1. Pt to meet at least 75% of nutritional needs via nutrition support with tolerance 2. Wt stability, skin to remain intact, labs to approach WNL.
[2017-09-18] MEDS: Multivitamin Tab GT SCH (10:28)
[2017-09-18] MEDS: Lactobacillus Rhamnosus GG 15 Billion CFU CAP.SPRINK GT SCH (10:28)
--- NOTE | 2017-09-18 18:15 | Progress Notes ---
DATE: 09/18/2017 Case was discussed with staff of the patient, reviewed records. The patient continues to be dealt with on the medical floor because of his multiple medical issues and has been seen by multiple doctors with multiple specialties, Infectious Disease, Crew Scheduler, and a Cooling Machine Operator. The patient has suffered from respiratory failure, but he is improving, encephalopathy, Alzheimer dementia, dysphagia, aphasia and a G-tube and bilateral patchy pneumonia, leukocytosis, improving. He is still unable to express himself, unpredictable and impulsive, needing redirection. We will continue to work the patient in group therapy, milieu therapy, and adjust medication as needed. Thank you very much for allowing me to participate in the care of this most interesting gentleman. JOB# [id number]
[2017-09-18] MEDS ORDERED: Fleet Enema 135 mL RC PRN (23:03)
--- NOTE | 2017-09-18 23:49 | Infectious Disease Prog Note ---
Infectious Disease Subjective - Review of Systems Service Date: 09/18/17 Subjective: No change, no fever. Infectious Disease Objective - Results Result Diagrams: 09/22/17 05:38 09/22/17 05:38 Recent Labs: Laboratory Last Values WBC 29.9 Th/cmm (4.8-10.8) H* 09/18/17 05:40 RBC 4.64 Mil/cmm (3.80-5.80) 09/18/17 05:40 Hgb 14.1 gm/dL (12-16) 09/18/17 05:40 Hct 40.9 % (41.0-60) L 09/18/17 05:40 MCV 88.2 fl (80-99) 09/18/17 05:40 MCH 30.4 pg (27.0-31.0) 09/18/17 05:40 MCHC Differential 34.5 pg (28.0-36.0) 09/18/17 05:40 RDW 14.3 % (11.5-20.0) 09/18/17 05:40 Plt Count 341 Th/cmm (150-400) D 09/18/17 05:40 MPV 7.9 fl 09/18/17 05:40 Neutrophils % LOAN SERVICING OFFICER 09/16/17 08:07 Band Neutrophils % 8 % (0-10) 09/17/17 06:18 Lymphocytes % LOAN SERVICING OFFICER 09/16/17 08:07 Monocytes % LOAN SERVICING OFFICER 09/16/17 08:07 Eosinophils % LOAN SERVICING OFFICER 09/16/17 08:07 Basophils % LOAN SERVICING OFFICER 09/16/17 08:07 Neutrophils (Manual) 81 % (40-80) H 09/18/17 05:40 Lymphocytes 13 % (20-50) L 09/18/17 05:40 Monocytes 6 % (2-10) 09/18/17 05:40 Platelet Estimate ADEQUATE (NORMAL) 09/18/17 05:40 PT 11.7 SECONDS (9.5-11.5) H 09/11/17 05:58 INR 1.12 (0.5-1.4) 09/11/17 05:58 Specimen Source Arterial 09/11/17 08:20 Sample Site RB 09/11/17 08:20 pH 7.45 (7.35-7.45) 09/11/17 08:20 pCO2 35.0 mmHg (35.0-45.0) 09/11/17 08:20 pO2 66.0 mmHg (80.0-100.0) L 09/11/17 08:20 HCO3 25.3 mEq/L (20.0-26.0) 09/11/17 08:20 Base Excess 0.6 mEq/L (-3.0-3.0) 09/11/17 08:20 O2 Saturation 94.0 % (92.0-100.0) 09/11/17 08:20 Franki Test POSITIVE 09/11/17 08:20 Vent Rate NA 09/11/17 08:20 Inspired O2 21 09/11/17 08:20 Tidal Volume NA 09/11/17 08:20 PEEP NA 09/11/17 08:20 Pressure (ins/psv/peep) NA 09/11/17 08:20 Critical Value SANDEEP CAMPOS 09/11/17 08:20 Sodium 141 mEq/L (136-145) 09/14/17 05:59 Potassium 3.9 mEq/L (3.5-5.1) 09/14/17 05:59 Chloride 108 mEq/L (98-107) H 09/14/17 05:59 Carbon Dioxide 26.3 mEq/L (21.0-31.0) 09/14/17 05:59 Anion Gap 10.6 (7.0-16.0) 09/14/17 05:59 BUN 32 mg/dL (7-25) H 09/14/17 05:59 Creatinine 0.7 mg/dL (0.7-1.3) 09/14/17 05:59 Est GFR ( Amer) TNP 09/14/17 05:59 Est GFR (Non-Af Amer) TNP 09/14/17 05:59 BUN/Creatinine Ratio 45.7 09/14/17 05:59 Glucose 187 mg/dL (70-105) H 09/14/17 05:59 POC Glucose 166 MG/DL (70 - 105) H 09/15/17 11:54 Calcium 9.3 mg/dL (8.6-10.3) 09/14/17 05:59 Total Bilirubin 0.6 mg/dL (0.3-1.0) 09/14/17 05:59 AST 13 U/L (13-39) 09/14/17 05:59 ALT 16 U/L (7-52) 09/14/17 05:59 Alkaline Phosphatase 97 U/L (34-104) 09/14/17 05:59 Troponin I 0.03 ng/mL (0.01-0.05) 09/09/17 10:15 B-Natriuretic Peptide 88.6 pg/mL (5.0-100.0) 09/10/17 05:40 Total Protein 5.7 gm/dL (6.0-8.3) L 09/14/17 05:59 Albumin 3.3 gm/dL (4.2-5.5) L 09/14/17 05:59 Globulin 2.4 gm/dL 09/14/17 05:59 Albumin/Globulin Ratio 1.4 (1.0-1.8) 09/14/17 05:59 TSH 0.53 uIU/ml (0.34-5.60) 09/11/17 05:58 Urine Source CATH 09/17/17 02:15 Urine Color YELLOW 09/17/17 02:15 Urine Clarity CLEAR (CLEAR) 09/17/17 02:15 Urine pH 7.0 (4.6 - 8.0) 09/17/17 02:15 Ur Specific [place] 1.010 (1.005-1.030) 09/17/17 02:15 Urine Protein NEGATIVE mg/dL (NEGATIVE) 09/17/17 02:15 Urine Glucose (UA) NEGATIVE mg/dL (NEGATIVE) 09/17/17 02:15 Urine Ketones NEGATIVE mg/dL (NEGATIVE) 09/17/17 02:15 Urine Blood NEGATIVE (NEGATIVE) 09/17/17 02:15 Urine Nitrate NEGATIVE (NEGATIVE) 09/17/17 02:15 Urine Bilirubin NEGATIVE (NEGATIVE) 09/17/17 02:15 Urine Urobilinogen 0.2 E.U./dL (0.2 - 1.0) 09/17/17 02:15 Ur Leukocyte Esterase NEGATIVE (NEGATIVE) 09/17/17 02:15 Urine RBC NONE SEEN /hpf (0-5) 09/17/17 02:15 Urine WBC NONE SEEN /hpf (0-5) 09/17/17 02:15 Ur Epithelial Cells OCCASIONAL /lpf (FEW) 09/17/17 02:15 Urine Bacteria NONE SEEN /hpf (NONE SEEN) 09/17/17 02:15 Helicobacter pylori Ab NEGATIVE (NEGATIVE) 09/11/17 09:50 - Physical Exam Vitals and I&O: Vital Signs Temp 97.5 F 09/18/17 22:00 Pulse 90 09/18/17 22:00 Resp 18 09/18/17 22:00 BP 143/70 09/18/17 22:00 Pulse Ox 97 09/18/17 19:58 Intake & Output 09/18/17 09/18/17 09/19/17 06:59 18:59 06:59 Intake Total 980 250 Balance 980 250 Weight (lbs) 60.781 kg Intake: Intake, IV Amount 200 250 Piperacillin Sodium/ 100 50 Tazobact 3.375 gm In Sodium Chloride 0.9% 50 ml @ 100 mls/hr IV Q6HR [facility] Rx#:[id number] metroNIDAZOLE 500mg/NS 100 200 100mL 500 mg In 100 ml @ 100 mls/hr IV Q8H [facility] Rx# :[id number] Tube Feeding 780 Other: # Voids 4 # Bowel Movements 0 Stool Characteristics Soft Soft Soft Weight Source Bedscale Active Medications: Current Medications Acetaminophen (Tylenol) 650 mg GT Q4H PRN PRN Reason: Mild pain, temp above 100 Stop: 11/07/17 22:07 Last Admin: 09/18/17 16:58 Dose: 650 mg Al Hydrox/Mg Hydrox/Simethicone (Maalox) 30 ml GT Q4HR PRN PRN Reason: GI distress Stop: 11/07/17 22:12 Albuterol/Ipratropium (Duoneb Neb) 3 ml HHN Q4H PRN PRN Reason: Wheezing Stop: 11/07/17 19:41 Last Admin: 09/09/17 07:34 Dose: 3 ml Albuterol/Ipratropium (Duoneb Neb) 3 ml HHN [id number] [facility] Stop: 11/09/17 14:59 Last Admin: 09/18/17 19:01 Dose: 3 ml Amlodipine Besylate (Norvasc) 5 mg GT DAILY [facility] Stop: 11/12/17 20:44 Last Admin: 09/18/17 10:28 Dose: 5 mg Ascorbic Acid (Vitamin C) 500 mg GT DAILY [facility] Stop: 11/12/17 20:45 Last Admin: 09/18/17 10:27 Dose: 500 mg Bisacodyl (Dulcolax 10 Mg Supp) 10 mg RC DAILY PRN PRN Reason: Constipation Stop: 11/17/17 23:01 Budesonide (Pulmicort) 0.5 mg HHN BIDRT ANG Stop: 11/09/17 18:59 Last Admin: 09/18/17 19:01 Dose: 0.5 mg Docusate Sodium (Colace) 100 mg PO DAILY ANG Stop: 11/17/17 08:59 Last Admin: 09/18/17 10:29 Dose: Not Given Donepezil HCl (Aricept) 10 mg GT HS ANG Stop: 11/12/17 20:48 Last Admin: 09/18/17 21:36 Dose: 10 mg Dextrose/Sodium Chloride (D5-0.45ns) 1,000 mls @ 50 mls/hr IV .Q20H ANG Stop: 11/09/17 08:14 Last Infusion: 09/17/17 17:59 Dose: 50 mls/hr Piperacillin Sod/Tazobactam (Sod 3.375 gm/ Sodium Chloride) 50 mls @ 100 mls/ hr IV Q6HR ANG Stop: 11/14/17 11:59 Last Admin: 09/18/17 18:05 Dose: 100 mls/hr Metronidazole (Flagyl) 500 mg in 100 mls @ 100 mls/hr IV Q8H ANG Stop: 11/16/17 07:59 Last Infusion: 09/18/17 17:58 Dose: Infused Lactobacillus Rhamnosus (Culturelle 15b) 1 each GT DAILY ANG Stop: 11/14/17 08:59 Last Admin: 09/18/17 10:28 Dose: 1 each Latanoprost (Xalatan 0.005% Oph Soln) 1 drop EACH EYE HS ANG Stop: 11/08/17 20:59 Last Admin: 09/18/17 21:48 Dose: Not Given Lorazepam (Ativan) 1 mg GT Q6HR PRN; Protocol PRN Reason: Agitation Stop: 11/11/17 11:14 Last Admin: 09/18/17 03:06 Dose: 1 mg Losartan Potassium (Cozaar) 50 mg GT DAILY ANG Stop: 11/12/17 20:46 Last Admin: 09/18/17 10:27 Dose: 50 mg Magnesium Hydroxide (Milk Of Magnesia) 30 ml PO HS PRN PRN Reason: Constipation Stop: 11/07/17 22:20 Last Admin: 09/17/17 09:31 Dose: 30 ml Memantine (Namenda) 5 mg GT BID [facility] Stop: 11/14/17 16:59 Last Admin: 09/18/17 16:58 Dose: 5 mg Miscellaneous (Probiotic Screen) 1 ea PRN PRN PRN Reason: PROTOCOL Stop: 11/14/17 08:44 Miscellaneous (Zosyn Iv Per Pharmacy) 1 ea PRN PRN PRN Reason: PROTOCOL Stop: 11/14/17 09:53 Multivitamins/Vitamin C (Theragran) 1 tab GT DAILY ANG Stop: 11/12/17 20:54 Last Admin: 09/18/17 10:28 Dose: 1 tab Olanzapine (Zyprexa) 5 mg GT HS ANG PRN Reason: Protocol Stop: 11/12/17 20:54 Last Admin: 09/18/17 21:34 Dose: 5 mg Olanzapine (Zyprexa) 2.5 mg GT DAILY ANG PRN Reason: Protocol Stop: 11/12/17 20:55 Last Admin: 09/18/17 10:28 Dose: 2.5 mg Sodium Phosphate (Fleet Enema) 135 ml RC DAILY PRN PRN Reason: Constipation Stop: 11/17/17 23:02 Tamsulosin HCl (Flomax) 0.4 mg GT HS [facility] Stop: 11/12/17 20:55 Last Admin: 09/18/17 21:37 Dose: 0.4 mg Zolpidem Tartrate (Ambien) 5 mg GT HS PRN PRN Reason: Insomnia Stop: 11/07/17 22:26 Last Admin: 09/14/17 01:16 Dose: 5 mg General: no acute distress, well developed, well nourished HEENT: atraumatic, normocephalic, PERRLA Neck: supple, no thyromegaly Cardiovascular: S1S2, regular Lungs: clear to auscultation bilaterally, clear to percussion Abdomen: soft, bowel sounds, no tender, no distended, no mass Extremities: no cyanosis, no clubbing, no edema Neurological: awake, alert, oriented Skin: intact - Procedures Procedures: Procedures Procedure Code Date EGD PLACE GASTROSTOMY TUBE 95089 09/08/17 INSERTION OF FEEDING DEVICE INTO STOMACH, PERC APPROACH [id number] 09/08/17 Infectious Disease Assmt/Plan - Assessment Assessment: 1. Pneumonia. 2. Dementia. 3. Psychosis. 4. Anemia. 5. Benign prostatic hypertrophy. 6. Hypertension. 7. Glaucoma. 8. Prerenal azotemia. 9. Leukocytosis. Improving. - Plan Plan: Continue zosyn. and flagyl and solumedrol dc'ed Nutritional Asmnt/Malnutr-PDOC - Dietary Evaluation Malnutrition Findings (Please click <Entered> for more info): Nutritional Asmnt/Malnutrition Start: 09/10/17 18: 01 Text: Status: Complete Freq: Document 09/10/17 18:01 LCKISHOREG (Rec: 09/10/17 18:12 LCHEN [id number]) Nutritional Asmnt/Malnutrition Patient General Information Nutritional Screening High Risk Diagnosis PNA Pertinent Medical Hx/Surgical Hx PNA Subjective Information Pt seen sleeping at time of visit. Per nurse, pt failed swallow eval this morning. ST recommended strict NPO. MD may order PEG placement tommorrow . Current Diet Order/ Nutrition Support NPO Pertinent Medications vit C, D5-0.45ns, levaquin, theragran Pertinent Labs 09/10 BUN 32 Nutritional Hx/Data Height 1.73 m Height (Calculated Centimeters) 172.7 Current Weight (lbs) 70.307 kg Weight (Calculated Kilograms) 70.3 Weight (Calculated Grams) 12605.8 [place] Body Weight 154 Body Mass Index (BMI) 23.6 Weight Status Approriate GI Symptoms GI Symptoms None Last BM 09/08 Difficult in: Swallowing Skin Integrity/Comment: reddened to lower back scabs on both feet Estimated Nutritional Goals BEE in Kcals: Using Current wt Calories/Kcals/Kg 23-27 Kcals Calculated 2133-0276 Protein: Using Current wt Protein g/k-1.2 Protein Calculated 63-74 Fluid: ml 1610-1890ml (1ml/kcal) Nutritional Problem 1. Problem Problem inadequate energy intake Etiology pt failed swallow eval Signs/Symptoms: pt on NPO and need alternative nutrition route Intervention/Recommendation Comments 1. Monitor NPO status. 2. If TF needed, recommend initiating Fibersource HN at 20ml/hr for first 24hr, increase 10ml/hr q12hr to goal rate of 55ml/hr continuous. It provides 1584kcal, 71g protein, 1069ml free water, meeting 100% of nutritional needs. 3. Monitor TF rate, tolerance, wt weekly, skin integrity and labs 4. F/U as high risk in 2-3 days, 09/12-09/13 Expected Outcomes/Goals Expected Outcomes/Goals 1. Pt to meet at least 75% of nutritional needs via nutrition support with tolerance 2. Wt stability, skin to remain intact, labs to approach WNL.
[2017-09-19] MEDS: D5-0.45NS 1,000 ML IV SCH (00:01)
[2017-09-19] MEDS: metroNIDAZOLE 500mg/NS 100mL 500 MG/100 ML BAG IV SCH ×3 (00:33→15:24)
--- NOTE | 2017-09-19 03:13 | Progress Notes ---
DATE: 09/18/2017 PULMONARY PROGRESS NOTE PROBLEM LIST: 1. Aspiration pneumonia, stable. 2. Persistent leukocytosis, exact detail not clear. 3. Alzheimer's. SYMPTOMS: Nil. The patient is sleeping, awake on stimulation. No respiratory distress, etc. PHYSICAL EXAMINATION: VITAL SIGNS: Temperature is 98.2, blood pressure is 137/72. NECK: Veins not visualized. CHEST: Shows clear with occasional secretory noise. ABDOMEN: Soft, nontender. EXTREMITIES: Shows no peripheral edema. LABORATORY DATA: The patient's white count is 29.9, neutrophils are high, lymphocytes at 13 and monocyte is 6. The patient's urine is clean and hemoglobin is 14.2. ASSESSMENT: The patient with persistent leukocytosis. His exact etiology is not clear. Plans we will check up with: 1. Clostridium difficile colitis. 2. Possibly ischemic colitis. PLANS AND SUGGESTIONS: We will go ahead and get a CT of the chest, repeat CT of the abdomen to get any clue and go from there and follow up other laboratory studies tomorrow. JOB# [id number]
[2017-09-19 05:26] LABS: HEMOGLOBIN 13.4 gm/dL (12-16); MANUAL DIFF REQUIRED? YES; MEAN CELL VOLUME 87.9 fl (80-99); MEAN CORPUSCULAR HEMOGLOBIN 30.2 pg (27.0-31.0); MEAN CORPUSCULAR HGB CONC 34.4 pg (28.0-36.0); MEAN PLATELET VOLUME 7.8 fl; PLATELET COUNT 275 Th/cmm (150-400); RED BLOOD COUNT 4.44 Mil/cmm (3.80-5.80); RED CELL DISTRIBUTION WIDTH 14.6 % (11.5-20.0)
[2017-09-19 05:29] LABS: WHITE BLOOD COUNT 26.8 Th/cmm (4.8-10.8)
[2017-09-19 05:42] LABS: ALB/GLOB RATIO 1.2 (1.0-1.8); ALBUMIN 2.7 gm/dL (4.2-5.5); ALKALINE PHOSPHATASE 134 U/L (34-104); ANION GAP 9.4 (7.0-16.0); BILIRUBIN,TOTAL 0.8 mg/dL (0.3-1.0); BUN - UREA NITROGEN 56 mg/dL (7-25); CALCIUM SERUM 8.4 mg/dL (8.6-10.3); CARBON DIOXIDE 27.6 mEq/L (21.0-31.0); CHLORIDE 106 mEq/L (98-107); CREATININE - SERUM 1.5 mg/dL (0.7-1.3); GLUCOSE 115 mg/dL (70-105); LIPASE 59 U/L (11-82); SGOT 22 U/L (13-39); SGPT/ALT 15 U/L (7-52); SODIUM SERUM 139 mEq/L (136-145); TOTAL PROTEIN,SERUM 4.9 gm/dL (6.0-8.3)
[2017-09-19 06:28] LABS: BAND NEUTROPHILE 2 % (0-10); EOSINOPHIL 1 % (0-5); LYMPHOCYTE 10 % (20-50); MONOCYTE 2 % (2-10); NEUTROPHILS 85 % (40-80); TOTAL CELLS COUNTED 100
[2017-09-19] MEDS: Budesonide 0.5 Mg/2 mL Ud HHN SCH ×2 (07:44→19:34)
[2017-09-19] MEDS: Albuterol/Ipratropium Neb 3 ML AERS HHN SCH ×4 (07:44→19:34)
--- NOTE | 2017-09-19 07:45 | Diagnostic Imaging Report ---
CT Chest without IV contrast HISTORY: Pain, leukocytosis COMPARISON: Chest x-ray on 09/17/[address] of the chest on 09/10/2017. Technique: Axial images were obtained from the base of the neck to the upper abdomen without administration of IV contrast. Coronal reconstructions were made. Total DLP 236, CTD I 6.6 FINDINGS: Evaluation of the mediastinum is limited due to lack of IV contrast. There is mild generalized thickening involving the mid to distal esophagus. Diffuse atherosclerosis is noted. Heart size at the upper limits of normal. No pericardial effusion. No evidence of an aneurysm. The lung lloyd demonstrate emphysematous changes with hypoventilatory atelectatic changes. Bibasilar passive atelectasis and consolidation changes are seen with small bilateral effusions. Biapical opacities are seen as seen on prior exam on the right measuring 2.9 x 1.4 cm and on the left measuring 0.5 cm, abutting the pleura. Small hiatal hernia is noted. Degenerative changes of the spine are noted. 1.2 cm sclerotic density is again seen within the T12 vertebral body on the left side. IMPRESSION: COPD lung changes with bibasal opacity atelectasis and consolidative changes and small effusions. Pneumonia of the lung bases cannot be excluded. Unchanged biapical opacities, left larger than right, on the left side measuring 2.9 x 1.4 cm. Findings may be due to scarring. Neoplastic etiology is considered less likely, however continued short-term follow-up surveillance CT is recommended. Mild prominence of the esophageal wall along the mid to distal esophagus which may be due to infectious inflammatory or less likely neoplastic process. Clinical correlation recommended. Diffuse atherosclerosis. Unchanged 1.2 cm sclerotic density of the T12 vertebral body on the left side. Continued follow-up surveillance is also recommended. Small hiatal hernia.
--- NOTE | 2017-09-19 07:53 | Diagnostic Imaging Report ---
CT abdomen and pelvis without intravenous contrast Indication: Abdominal pain, leukocytosis Comparison: CT chest the same day, Technique: Axial images were obtained from the lung bases to the bilateral proximal femurs without IV contrast. Coronal reconstructions were made. total DLP: 520, CTDI10.9 FINDINGS: Assessment of the solid organs is limited due to lack of IV contrast. No evidence of focal hepatic lesions. The common bile duct is dilated measuring up to 1.5 cm. The patient is status post cholecystectomy. No focal splenic or pancreatic lesions. No focal adrenal lesions. Left renal cysts are noted the largest within the superior pole measuring 3.2 cm. No hydronephrosis or evidence of renal stones. There is moderate bilateral hydronephrosis. There is a severely distended urinary bladder with anterior small urinary bladder diverticulum. The prostate gland is enlarged measuring 6.3 x 4.2 cm with calcifications. There is distal fecal impaction. Moderate stool is seen throughout the colon. The appendix is not well-visualized. A percutaneous gastric feeding tube is noted. Nonspecific mild perinephric inflammatory changes are seen with small amount of perinephric free fluid. There is mild anasarca. Degenerative changes spine and pelvis are noted. Postsurgical changes of right femur are noted. Old left rib fractures are noted. Irregularity of the left ileum is noted. This is likely Related likely related to motion. IMPRESSION: Severely distended urinary bladder. There is associated mild to moderate bilateral hydronephrosis. Enlarged prostate gland. There may be underlying urinary bladder outlet obstruction due to patient's enlarged prostate gland Distal fecal impaction and copious stool throughout the colon. Evidence of prior cholecystectomy. The common bile duct is dilated measuring up to 1.5 cm. Please correlate with clinical findings. Consider further testing if indicated. Bilateral perinephric inflammatory changes and small amount of fluid seen along the bilateral retroperitoneal regions. Percutaneous gastric feeding tube noted. Irregularity of the left iliac bone likely related to motion. If there is concern for iliac bone fractures, x-ray of this region or repeat CT pelvis may be obtained for further assessment. Postsurgical changes of right femur. Atherosclerotic vascular disease.
[2017-09-19] MEDS: Lactobacillus Rhamnosus GG 15 Billion CFU CAP.SPRINK GT SCH (08:32)
[2017-09-19] MEDS: Multivitamin Tab GT SCH (08:32)
[2017-09-19] MEDS ORDERED: Magnesium Citrate 1.75 GM/300 mL Bottle PO ONE (11:19)
[2017-09-19] MEDS: Piperacillin/Tazobact 2.25 gm in 0.9% NS 50 ML IV SCH ×3 (11:59→23:39)
--- NOTE | 2017-09-19 15:10 | Infectious Disease Prog Note ---
Infectious Disease Subjective - Review of Systems Service Date: 09/19/17 Subjective: No change, no fever. Infectious Disease Objective - Results Result Diagrams: 09/19/17 05:00 09/19/17 05:00 Recent Labs: Laboratory Last Values WBC 26.8 Th/cmm (4.8-10.8) H* 09/19/17 05:00 RBC 4.44 Mil/cmm (3.80-5.80) 09/19/17 05:00 Hgb 13.4 gm/dL (12-16) 09/19/17 05:00 Hct 39.0 % (41.0-60) L 09/19/17 05:00 MCV 87.9 fl (80-99) 09/19/17 05:00 MCH 30.2 pg (27.0-31.0) 09/19/17 05:00 MCHC Differential 34.4 pg (28.0-36.0) 09/19/17 05:00 RDW 14.6 % (11.5-20.0) 09/19/17 05:00 Plt Count 275 Th/cmm (150-400) 09/19/17 05:00 MPV 7.8 fl 09/19/17 05:00 Neutrophils % COORDINATOR OF PLACEMENT 09/16/17 08:07 Band Neutrophils % 2 % (0-10) 09/19/17 05:00 Lymphocytes % COORDINATOR OF PLACEMENT 09/16/17 08:07 Monocytes % COORDINATOR OF PLACEMENT 09/16/17 08:07 Eosinophils % COORDINATOR OF PLACEMENT 09/16/17 08:07 Basophils % COORDINATOR OF PLACEMENT 09/16/17 08:07 Neutrophils (Manual) 85 % (40-80) H 09/19/17 05:00 Lymphocytes 10 % (20-50) L 09/19/17 05:00 Monocytes 2 % (2-10) 09/19/17 05:00 Eosinophils 1 % (0-5) 09/19/17 05:00 Platelet Estimate ADEQUATE (NORMAL) 09/18/17 05:40 PT 11.7 SECONDS (9.5-11.5) H 09/11/17 05:58 INR 1.12 (0.5-1.4) 09/11/17 05:58 Specimen Source Arterial 09/11/17 08:20 Sample Site RB 09/11/17 08:20 pH 7.45 (7.35-7.45) 09/11/17 08:20 pCO2 35.0 mmHg (35.0-45.0) 09/11/17 08:20 pO2 66.0 mmHg (80.0-100.0) L 09/11/17 08:20 HCO3 25.3 mEq/L (20.0-26.0) 09/11/17 08:20 Base Excess 0.6 mEq/L (-3.0-3.0) 09/11/17 08:20 O2 Saturation 94.0 % (92.0-100.0) 09/11/17 08:20 Franki Test POSITIVE 09/11/17 08:20 Vent Rate NA 09/11/17 08:20 Inspired O2 21 09/11/17 08:20 Tidal Volume NA 09/11/17 08:20 PEEP NA 09/11/17 08:20 Pressure (ins/psv/peep) NA 09/11/17 08:20 Critical Value SANDEEP CAMPOS 09/11/17 08:20 Sodium 139 mEq/L (136-145) 09/19/17 05:00 Potassium 4.0 mEq/L (3.5-5.1) 09/19/17 05:00 Chloride 106 mEq/L (98-107) 09/19/17 05:00 Carbon Dioxide 27.6 mEq/L (21.0-31.0) 09/19/17 05:00 Anion Gap 9.4 (7.0-16.0) 09/19/17 05:00 BUN 56 mg/dL (7-25) H 09/19/17 05:00 Creatinine 1.5 mg/dL (0.7-1.3) H 09/19/17 05:00 Est GFR ( Amer) TNP 09/19/17 05:00 Est GFR (Non-Af Amer) TNP 09/19/17 05:00 BUN/Creatinine Ratio 37.3 09/19/17 05:00 Glucose 115 mg/dL (70-105) H 09/19/17 05:00 POC Glucose 145 MG/DL (70 - 105) H 09/19/17 12:36 Calcium 8.4 mg/dL (8.6-10.3) L 09/19/17 05:00 Total Bilirubin 0.8 mg/dL (0.3-1.0) 09/19/17 05:00 AST 22 U/L (13-39) 09/19/17 05:00 ALT 15 U/L (7-52) 09/19/17 05:00 Alkaline Phosphatase 134 U/L (34-104) H 09/19/17 05:00 Troponin I 0.03 ng/mL (0.01-0.05) 09/09/17 10:15 B-Natriuretic Peptide 88.6 pg/mL (5.0-100.0) 09/10/17 05:40 Total Protein 4.9 gm/dL (6.0-8.3) L 09/19/17 05:00 Albumin 2.7 gm/dL (4.2-5.5) L 09/19/17 05:00 Globulin 2.2 gm/dL 09/19/17 05:00 Albumin/Globulin Ratio 1.2 (1.0-1.8) 09/19/17 05:00 Lipase 59 U/L (11-82) 09/19/17 05:00 TSH 0.53 uIU/ml (0.34-5.60) 09/11/17 05:58 Urine Source CATH 09/17/17 02:15 Urine Color YELLOW 09/17/17 02:15 Urine Clarity CLEAR (CLEAR) 09/17/17 02:15 Urine pH 7.0 (4.6 - 8.0) 09/17/17 02:15 Ur Specific [place] 1.010 (1.005-1.030) 09/17/17 02:15 Urine Protein NEGATIVE mg/dL (NEGATIVE) 09/17/17 02:15 Urine Glucose (UA) NEGATIVE mg/dL (NEGATIVE) 09/17/17 02:15 Urine Ketones NEGATIVE mg/dL (NEGATIVE) 09/17/17 02:15 Urine Blood NEGATIVE (NEGATIVE) 09/17/17 02:15 Urine Nitrate NEGATIVE (NEGATIVE) 09/17/17 02:15 Urine Bilirubin NEGATIVE (NEGATIVE) 09/17/17 02:15 Urine Urobilinogen 0.2 E.U./dL (0.2 - 1.0) 09/17/17 02:15 Ur Leukocyte Esterase NEGATIVE (NEGATIVE) 09/17/17 02:15 Urine RBC NONE SEEN /hpf (0-5) 09/17/17 02:15 Urine WBC NONE SEEN /hpf (0-5) 09/17/17 02:15 Ur Epithelial Cells OCCASIONAL /lpf (FEW) 09/17/17 02:15 Urine Bacteria NONE SEEN /hpf (NONE SEEN) 09/17/17 02:15 Helicobacter pylori Ab NEGATIVE (NEGATIVE) 09/11/17 09:50 - Physical Exam Vitals and I&O: Vital Signs Temp 97.2 F 09/19/17 12:43 Pulse 92 09/19/17 14:24 Resp 18 09/19/17 14:24 BP 132/70 09/19/17 12:43 Pulse Ox 99 09/19/17 14:24 Intake & Output 09/18/17 09/19/17 09/19/17 18:59 06:59 18:59 Intake Total 1298.333 150 150 Balance 1298.333 150 150 Weight (lbs) 60.781 kg Intake: Intake, IV Amount 1298.333 150 150 D5-0.45NS 1,000 ml @ 50 998.333 mls/hr IV .Q20H ANG Rx#: [id number] Piperacillin Sodium/ 50 Tazobact 2.25 gm In Sodium Chloride 0.9% 50 ml @ 100 mls/hr IV Q6HR ANG Rx#:[id number] Piperacillin Sodium/ 100 50 Tazobact 3.375 gm In Sodium Chloride 0.9% 50 ml @ 100 mls/hr IV Q6HR [facility] Rx#:[id number] metroNIDAZOLE 500mg/NS 200 100 100 100mL 500 mg In 100 ml @ 100 mls/hr IV Q8H [facility] Rx# :[id number] Other: # Voids 3 # Bowel Movements 3 Stool Characteristics Soft Soft Formed Weight Source Bedscale Active Medications: Current Medications Acetaminophen (Tylenol) 650 mg GT Q4H PRN PRN Reason: Mild pain, temp above 100 Stop: 11/07/17 22:07 Last Admin: 09/18/17 16:58 Dose: 650 mg Al Hydrox/Mg Hydrox/Simethicone (Maalox) 30 ml GT Q4HR PRN PRN Reason: GI distress Stop: 11/07/17 22:12 Albuterol/Ipratropium (Duoneb Neb) 3 ml HHN Q4H PRN PRN Reason: Wheezing Stop: 11/07/17 19:41 Last Admin: 09/09/17 07:34 Dose: 3 ml Albuterol/Ipratropium (Duoneb Neb) 3 ml HHN [id number] ANG Stop: 11/09/17 14:59 Last Admin: 09/19/17 14:23 Dose: 3 ml Amlodipine Besylate (Norvasc) 5 mg GT DAILY ANG Stop: 11/12/17 20:44 Last Admin: 09/19/17 08:31 Dose: 5 mg Ascorbic Acid (Vitamin C) 500 mg GT DAILY ANG Stop: 11/12/17 20:45 Last Admin: 09/19/17 08:31 Dose: 500 mg Bisacodyl (Dulcolax 10 Mg Supp) 10 mg RC DAILY PRN PRN Reason: Constipation Stop: 11/17/17 23:01 Budesonide (Pulmicort) 0.5 mg HHN BIDRT ANG Stop: 11/09/17 18:59 Last Admin: 09/19/17 07:44 Dose: 0.5 mg Docusate Sodium (Colace) 100 mg PO DAILY ANG Stop: 11/17/17 08:59 Last Admin: 09/19/17 08:31 Dose: 100 mg Donepezil HCl (Aricept) 10 mg GT HS ANG Stop: 11/12/17 20:48 Last Admin: 09/18/17 21:36 Dose: 10 mg Dextrose/Sodium Chloride (D5-0.45ns) 1,000 mls @ 50 mls/hr IV .Q20H ANG Stop: 11/09/17 08:14 Last Admin: 09/19/17 00:01 Dose: 50 mls/hr Metronidazole (Flagyl) 500 mg in 100 mls @ 100 mls/hr IV Q8H ANG Stop: 11/16/17 07:59 Last Infusion: 09/19/17 09:30 Dose: Infused Piperacillin Sod/Tazobactam (Sod 2.25 gm/ Sodium Chloride) 50 mls @ 100 mls/hr IV Q6HR ANG Stop: 11/18/17 11:59 Last Infusion: 09/19/17 13:14 Dose: Infused Lactobacillus Rhamnosus (Culturelle 15b) 1 each GT DAILY ANG Stop: 11/14/17 08:59 Last Admin: 09/19/17 08:32 Dose: 1 each Latanoprost (Xalatan 0.005% Oph Soln) 1 drop EACH EYE HS ANG Stop: 11/08/17 20:59 Last Admin: 09/18/17 21:48 Dose: Not Given Lorazepam (Ativan) 1 mg GT Q6HR PRN; Protocol PRN Reason: Agitation Stop: 11/11/17 11:14 Last Admin: 09/18/17 03:06 Dose: 1 mg Losartan Potassium (Cozaar) 50 mg GT DAILY ANG Stop: 11/12/17 20:46 Last Admin: 09/19/17 08:32 Dose: 50 mg Magnesium Hydroxide (Milk Of Magnesia) 30 ml PO HS PRN PRN Reason: Constipation Stop: 11/07/17 22:20 Last Admin: 09/17/17 09:31 Dose: 30 ml Memantine (Namenda) 5 mg GT BID ANG Stop: 11/14/17 16:59 Last Admin: 09/19/17 08:32 Dose: 5 mg Mineral Oil (Mineral Oil 30 Ml) 30 ml GT TID ANG Stop: 11/18/17 13:59 Miscellaneous (Probiotic Screen) 1 ea PRN PRN PRN Reason: PROTOCOL Stop: 11/14/17 08:44 Miscellaneous (Zosyn Iv Per Pharmacy) 1 ea PRN PRN PRN Reason: PROTOCOL Stop: 11/14/17 09:53 Multivitamins/Vitamin C (Theragran) 1 tab GT DAILY ANG Stop: 11/12/17 20:54 Last Admin: 09/19/17 08:32 Dose: 1 tab Olanzapine (Zyprexa) 5 mg GT HS ANG PRN Reason: Protocol Stop: 11/12/17 20:54 Last Admin: 09/18/17 21:34 Dose: 5 mg Olanzapine (Zyprexa) 2.5 mg GT DAILY ANG PRN Reason: Protocol Stop: 11/12/17 20:55 Last Admin: 09/19/17 08:32 Dose: 2.5 mg Sodium Phosphate (Fleet Enema) 135 ml RC DAILY PRN PRN Reason: Constipation Stop: 11/17/17 23:02 Tamsulosin HCl (Flomax) 0.4 mg GT HS ANG Stop: 11/12/17 20:55 Last Admin: 09/18/17 21:37 Dose: 0.4 mg Zolpidem Tartrate (Ambien) 5 mg GT HS PRN PRN Reason: Insomnia Stop: 11/07/17 22:26 Last Admin: 09/14/17 01:16 Dose: 5 mg General: no acute distress, well developed, well nourished HEENT: atraumatic, normocephalic, PERRLA Neck: supple, no thyromegaly Cardiovascular: S1S2, regular, systolic murmur Lungs: clear to auscultation bilaterally, clear to percussion Abdomen: soft, no tender Extremities: no cyanosis, no clubbing, no edema - Procedures Procedures: Procedures Procedure Code Date EGD PLACE GASTROSTOMY TUBE 91467 09/08/17 INSERTION OF FEEDING DEVICE INTO STOMACH, PERC APPROACH [id number] 09/08/17 Infectious Disease Assmt/Plan - Assessment Assessment: 1. Pneumonia. 2. Dementia. 3. Psychosis. 4. Anemia. 5. Benign prostatic hypertrophy. 6. Hypertension. 7. Glaucoma. 8. Prerenal azotemia. 9. Leukocytosis. Improving. - Plan Plan: Continue zosyn. and flagyl and solumedrol dc'ed Nutritional Asmnt/Malnutr-PDOC - Dietary Evaluation Malnutrition Findings (Please click <Entered> for more info): Nutritional Asmnt/Malnutrition Start: 09/10/17 18: 01 Text: Status: Complete Freq: Document 09/10/17 18:01 LCKISHOREG (Rec: 09/10/17 18:12 [id number] Nutritional Asmnt/Malnutrition Patient General Information Nutritional Screening High Risk Diagnosis PNA Pertinent Medical Hx/Surgical Hx PNA Subjective Information Pt seen sleeping at time of visit. Per nurse, pt failed swallow eval this morning. ST recommended strict NPO. MD may order PEG placement tommorrow . Current Diet Order/ Nutrition Support NPO Pertinent Medications vit C, D5-0.45ns, levaquin, theragran Pertinent Labs 09/10 BUN 32 Nutritional Hx/Data Height 1.73 m Height (Calculated Centimeters) 172.7 Current Weight (lbs) 70.307 kg Weight (Calculated Kilograms) 70.3 Weight (Calculated Grams) 88457.8 [place] Body Weight 154 Body Mass Index (BMI) 23.6 Weight Status Approriate GI Symptoms GI Symptoms None Last BM 09/08 Difficult in: Swallowing Skin Integrity/Comment: reddened to lower back scabs on both feet Estimated Nutritional Goals BEE in Kcals: Using Current wt Calories/Kcals/Kg 23-27 Kcals Calculated 2039-8832 Protein: Using Current wt Protein g/k-1.2 Protein Calculated 63-74 Fluid: ml 1610-1890ml (1ml/kcal) Nutritional Problem 1. Problem Problem inadequate energy intake Etiology pt failed swallow eval Signs/Symptoms: pt on NPO and need alternative nutrition route Intervention/Recommendation Comments 1. Monitor NPO status. 2. If TF needed, recommend initiating Fibersource HN at 20ml/hr for first 24hr, increase 10ml/hr q12hr to goal rate of 55ml/hr continuous. It provides 1584kcal, 71g protein, 1069ml free water, meeting 100% of nutritional needs. 3. Monitor TF rate, tolerance, wt weekly, skin integrity and labs 4. F/U as high risk in 2-3 days, 09/12-09/13 Expected Outcomes/Goals Expected Outcomes/Goals 1. Pt to meet at least 75% of nutritional needs via nutrition support with tolerance 2. Wt stability, skin to remain intact, labs to approach WNL.
--- NOTE | 2017-09-19 15:38 | Infectious Disease Prog Note ---
Infectious Disease Subjective - Review of Systems Service Date: 09/19/17 Subjective: No change, no fever. CT scan revealed bilateral hydronephrosis. Eduardo catheter placed and 1100ml of urine output noticed, by now, he has 1800ml of urine output recorded. Infectious Disease Objective - Results Result Diagrams: 09/19/17 05:00 09/19/17 05:00 Recent Labs: Laboratory Last Values WBC 26.8 Th/cmm (4.8-10.8) H* 09/19/17 05:00 RBC 4.44 Mil/cmm (3.80-5.80) 09/19/17 05:00 Hgb 13.4 gm/dL (12-16) 09/19/17 05:00 Hct 39.0 % (41.0-60) L 09/19/17 05:00 MCV 87.9 fl (80-99) 09/19/17 05:00 MCH 30.2 pg (27.0-31.0) 09/19/17 05:00 MCHC Differential 34.4 pg (28.0-36.0) 09/19/17 05:00 RDW 14.6 % (11.5-20.0) 09/19/17 05:00 Plt Count 275 Th/cmm (150-400) 09/19/17 05:00 MPV 7.8 fl 09/19/17 05:00 Neutrophils % [employer] 09/16/17 08:07 Band Neutrophils % 2 % (0-10) 09/19/17 05:00 Lymphocytes % [employer] 09/16/17 08:07 Monocytes % [employer] 09/16/17 08:07 Eosinophils % [employer] 09/16/17 08:07 Basophils % [employer] 09/16/17 08:07 Neutrophils (Manual) 85 % (40-80) H 09/19/17 05:00 Lymphocytes 10 % (20-50) L 09/19/17 05:00 Monocytes 2 % (2-10) 09/19/17 05:00 Eosinophils 1 % (0-5) 09/19/17 05:00 Platelet Estimate ADEQUATE (NORMAL) 09/18/17 05:40 PT 11.7 SECONDS (9.5-11.5) H 09/11/17 05:58 INR 1.12 (0.5-1.4) 09/11/17 05:58 Specimen Source Arterial 09/11/17 08:20 Sample Site RB 09/11/17 08:20 pH 7.45 (7.35-7.45) 09/11/17 08:20 pCO2 35.0 mmHg (35.0-45.0) 09/11/17 08:20 pO2 66.0 mmHg (80.0-100.0) L 09/11/17 08:20 HCO3 25.3 mEq/L (20.0-26.0) 09/11/17 08:20 Base Excess 0.6 mEq/L (-3.0-3.0) 09/11/17 08:20 O2 Saturation 94.0 % (92.0-100.0) 09/11/17 08:20 Franki Test POSITIVE 09/11/17 08:20 Vent Rate NA 09/11/17 08:20 Inspired O2 21 09/11/17 08:20 Tidal Volume NA 09/11/17 08:20 PEEP NA 09/11/17 08:20 Pressure (ins/psv/peep) NA 09/11/17 08:20 Critical Value SANDEEP CAMPOS 09/11/17 08:20 Sodium 139 mEq/L (136-145) 09/19/17 05:00 Potassium 4.0 mEq/L (3.5-5.1) 09/19/17 05:00 Chloride 106 mEq/L (98-107) 09/19/17 05:00 Carbon Dioxide 27.6 mEq/L (21.0-31.0) 09/19/17 05:00 Anion Gap 9.4 (7.0-16.0) 09/19/17 05:00 BUN 56 mg/dL (7-25) H 09/19/17 05:00 Creatinine 1.5 mg/dL (0.7-1.3) H 09/19/17 05:00 Est GFR ( Amer) TNP 09/19/17 05:00 Est GFR (Non-Af Amer) TNP 09/19/17 05:00 BUN/Creatinine Ratio 37.3 09/19/17 05:00 Glucose 115 mg/dL (70-105) H 09/19/17 05:00 POC Glucose 145 MG/DL (70 - 105) H 09/19/17 12:36 Calcium 8.4 mg/dL (8.6-10.3) L 09/19/17 05:00 Total Bilirubin 0.8 mg/dL (0.3-1.0) 09/19/17 05:00 AST 22 U/L (13-39) 09/19/17 05:00 ALT 15 U/L (7-52) 09/19/17 05:00 Alkaline Phosphatase 134 U/L (34-104) H 09/19/17 05:00 Troponin I 0.03 ng/mL (0.01-0.05) 09/09/17 10:15 B-Natriuretic Peptide 88.6 pg/mL (5.0-100.0) 09/10/17 05:40 Total Protein 4.9 gm/dL (6.0-8.3) L 09/19/17 05:00 Albumin 2.7 gm/dL (4.2-5.5) L 09/19/17 05:00 Globulin 2.2 gm/dL 09/19/17 05:00 Albumin/Globulin Ratio 1.2 (1.0-1.8) 09/19/17 05:00 Lipase 59 U/L (11-82) 09/19/17 05:00 TSH 0.53 uIU/ml (0.34-5.60) 09/11/17 05:58 Urine Source CATH 09/17/17 02:15 Urine Color YELLOW 09/17/17 02:15 Urine Clarity CLEAR (CLEAR) 09/17/17 02:15 Urine pH 7.0 (4.6 - 8.0) 09/17/17 02:15 Ur Specific [place] 1.010 (1.005-1.030) 09/17/17 02:15 Urine Protein NEGATIVE mg/dL (NEGATIVE) 09/17/17 02:15 Urine Glucose (UA) NEGATIVE mg/dL (NEGATIVE) 09/17/17 02:15 Urine Ketones NEGATIVE mg/dL (NEGATIVE) 09/17/17 02:15 Urine Blood NEGATIVE (NEGATIVE) 09/17/17 02:15 Urine Nitrate NEGATIVE (NEGATIVE) 09/17/17 02:15 Urine Bilirubin NEGATIVE (NEGATIVE) 09/17/17 02:15 Urine Urobilinogen 0.2 E.U./dL (0.2 - 1.0) 09/17/17 02:15 Ur Leukocyte Esterase NEGATIVE (NEGATIVE) 09/17/17 02:15 Urine RBC NONE SEEN /hpf (0-5) 09/17/17 02:15 Urine WBC NONE SEEN /hpf (0-5) 09/17/17 02:15 Ur Epithelial Cells OCCASIONAL /lpf (FEW) 09/17/17 02:15 Urine Bacteria NONE SEEN /hpf (NONE SEEN) 09/17/17 02:15 Helicobacter pylori Ab NEGATIVE (NEGATIVE) 09/11/17 09:50 - Physical Exam Vitals and I&O: Vital Signs Temp 97.2 F 09/19/17 12:43 Pulse 92 09/19/17 14:24 Resp 18 09/19/17 14:24 BP 132/70 09/19/17 12:43 Pulse Ox 99 09/19/17 14:24 Intake & Output 09/18/17 09/19/17 09/19/17 18:59 06:59 18:59 Intake Total 1298.333 150 150 Balance 1298.333 150 150 Weight (lbs) 60.781 kg Intake: Intake, IV Amount 1298.333 150 150 D5-0.45NS 1,000 ml @ 50 998.333 mls/hr IV .Q20H [facility] Rx#: [id number] Piperacillin Sodium/ 50 Tazobact 2.25 gm In Sodium Chloride 0.9% 50 ml @ 100 mls/hr IV Q6HR [facility] Rx#:[id number] Piperacillin Sodium/ 100 50 Tazobact 3.375 gm In Sodium Chloride 0.9% 50 ml @ 100 mls/hr IV Q6HR ANG Rx#:[id number] metroNIDAZOLE 500mg/NS 200 100 100 100mL 500 mg In 100 ml @ 100 mls/hr IV Q8H ANG Rx# :[id number] Other: # Voids 3 # Bowel Movements 3 Stool Characteristics Soft Soft Formed Weight Source Bedscale Active Medications: Current Medications Acetaminophen (Tylenol) 650 mg GT Q4H PRN PRN Reason: Mild pain, temp above 100 Stop: 11/07/17 22:07 Last Admin: 09/18/17 16:58 Dose: 650 mg Al Hydrox/Mg Hydrox/Simethicone (Maalox) 30 ml GT Q4HR PRN PRN Reason: GI distress Stop: 11/07/17 22:12 Albuterol/Ipratropium (Duoneb Neb) 3 ml HHN Q4H PRN PRN Reason: Wheezing Stop: 11/07/17 19:41 Last Admin: 09/09/17 07:34 Dose: 3 ml Albuterol/Ipratropium (Duoneb Neb) 3 ml HHN [id number] ANG Stop: 11/09/17 14:59 Last Admin: 09/19/17 14:23 Dose: 3 ml Amlodipine Besylate (Norvasc) 5 mg GT DAILY ANG Stop: 11/12/17 20:44 Last Admin: 09/19/17 08:31 Dose: 5 mg Ascorbic Acid (Vitamin C) 500 mg GT DAILY ANG Stop: 11/12/17 20:45 Last Admin: 09/19/17 08:31 Dose: 500 mg Bisacodyl (Dulcolax 10 Mg Supp) 10 mg RC DAILY PRN PRN Reason: Constipation Stop: 11/17/17 23:01 Budesonide (Pulmicort) 0.5 mg HHN BIDRT ANG Stop: 11/09/17 18:59 Last Admin: 09/19/17 07:44 Dose: 0.5 mg Docusate Sodium (Colace) 100 mg PO DAILY ANG Stop: 11/17/17 08:59 Last Admin: 09/19/17 08:31 Dose: 100 mg Donepezil HCl (Aricept) 10 mg GT HS [facility] Stop: 11/12/17 20:48 Last Admin: 09/18/17 21:36 Dose: 10 mg Dextrose/Sodium Chloride (D5-0.45ns) 1,000 mls @ 50 mls/hr IV .Q20H ANG Stop: 11/09/17 08:14 Last Admin: 09/19/17 00:01 Dose: 50 mls/hr Metronidazole (Flagyl) 500 mg in 100 mls @ 100 mls/hr IV Q8H ANG Stop: 11/16/17 07:59 Last Admin: 09/19/17 15:24 Dose: 100 mls/hr Piperacillin Sod/Tazobactam (Sod 2.25 gm/ Sodium Chloride) 50 mls @ 100 mls/hr IV Q6HR ANG Stop: 11/18/17 11:59 Last Infusion: 09/19/17 13:14 Dose: Infused Lactobacillus Rhamnosus (Culturelle 15b) 1 each GT DAILY ANG Stop: 11/14/17 08:59 Last Admin: 09/19/17 08:32 Dose: 1 each Latanoprost (Xalatan 0.005% Ophth Soln) 1 drop EACH EYE HS ANG Stop: 11/08/17 20:59 Last Admin: 09/18/17 21:48 Dose: Not Given Lorazepam (Ativan) 1 mg GT Q6HR PRN; Protocol PRN Reason: Agitation Stop: 11/11/17 11:14 Last Admin: 09/18/17 03:06 Dose: 1 mg Losartan Potassium (Cozaar) 50 mg GT DAILY ANG Stop: 11/12/17 20:46 Last Admin: 09/19/17 08:32 Dose: 50 mg Magnesium Hydroxide (Milk Of Magnesia) 30 ml PO HS PRN PRN Reason: Constipation Stop: 11/07/17 22:20 Last Admin: 09/17/17 09:31 Dose: 30 ml Memantine (Namenda) 5 mg GT BID ANG Stop: 11/14/17 16:59 Last Admin: 09/19/17 08:32 Dose: 5 mg Mineral Oil (Mineral Oil 30 Ml) 30 ml GT TID ANG Stop: 11/18/17 13:59 Last Admin: 09/19/17 15:24 Dose: 30 ml Miscellaneous (Probiotic Screen) 1 ea PRN PRN PRN Reason: PROTOCOL Stop: 11/14/17 08:44 Miscellaneous (Zosyn Iv Per Pharmacy) 1 ea PRN PRN PRN Reason: PROTOCOL Stop: 11/14/17 09:53 Multivitamins/Vitamin C (Theragran) 1 tab GT DAILY ANG Stop: 11/12/17 20:54 Last Admin: 09/19/17 08:32 Dose: 1 tab Olanzapine (Zyprexa) 5 mg GT HS ANG PRN Reason: Protocol Stop: 11/12/17 20:54 Last Admin: 09/18/17 21:34 Dose: 5 mg Olanzapine (Zyprexa) 2.5 mg GT DAILY ANG PRN Reason: Protocol Stop: 11/12/17 20:55 Last Admin: 09/19/17 08:32 Dose: 2.5 mg Sodium Phosphate (Fleet Enema) 135 ml RC DAILY PRN PRN Reason: Constipation Stop: 11/17/17 23:02 Tamsulosin HCl (Flomax) 0.4 mg GT HS ANG Stop: 11/12/17 20:55 Last Admin: 09/18/17 21:37 Dose: 0.4 mg Zolpidem Tartrate (Ambien) 5 mg GT HS PRN PRN Reason: Insomnia Stop: 11/07/17 22:26 Last Admin: 09/14/17 01:16 Dose: 5 mg General: no acute distress, well developed, well nourished HEENT: atraumatic, normocephalic, PERRLA Neck: supple, no thyromegaly Cardiovascular: S1S2, regular Lungs: clear to auscultation bilaterally, clear to percussion Abdomen: soft, no tender, no distended, no mass, no rebound Extremities: no cyanosis, no clubbing Neurological: awake, alert - Procedures Procedures: Procedures Procedure Code Date EGD PLACE GASTROSTOMY TUBE 90003 09/08/17 INSERTION OF FEEDING DEVICE INTO STOMACH, PERC APPROACH 2DS45WV 09/08/17 Infectious Disease Assmt/Plan - Assessment Assessment: 1. Pneumonia. 2. Dementia. 3. Psychosis. 4. Anemia. 5. Benign prostatic hypertrophy. 6. Hypertension. 7. Glaucoma. 8. Prerenal azotemia. 9. Leukocytosis. Improving. 10. Bilateral hydronephrosis, obstructice uropathy, neurogenic bladder. - Plan Plan: Continue zosyn. and flagyl. UA urine cs Nutritional Asmnt/Malnutr-PDOC - Dietary Evaluation Malnutrition Findings (Please click <Entered> for more info): Nutritional Asmnt/Malnutrition Start: 09/10/17 18: 01 Text: Status: Complete Freq: Document 09/10/17 18:01 KISHORE (Rec[facility] 09[facility]10[facility]17 [email or web address] Nutritional Asmnt/Malnutrition Patient General Information Nutritional Screening High Risk Diagnosis PNA Pertinent Medical Hx/Surgical Hx PNA Subjective Information Pt seen sleeping at time of visit. Per nurse, pt failed swallow eval this morning. ST recommended strict NPO. may order PEG placement tommorrow . Current Diet Order/ Nutrition Support NPO Pertinent Medications vit C, D5-0.45ns, levaquin, theragran Pertinent Labs 09/10 BUN 32 Nutritional Hx/Data Height 1.73 m Height (Calculated Centimeters) 172.7 Current Weight (lbs) 70.307 kg Weight (Calculated Kilograms) 70.3 Weight (Calculated Grams) 71118.8 [place] Body Weight 154 Body Mass Index (BMI) 23.6 Weight Status Approriate GI Symptoms GI Symptoms None Last BM 09/08 Difficult in: Swallowing Skin Integrity/Comment: reddened to lower back scabs on both feet Estimated Nutritional Goals BEE in Kcals: Using Current wt Calories/Kcals/Kg 23-27 Kcals Calculated 1236-6710 Protein: Using Current wt Protein g/k-1.2 Protein Calculated 63-74 Fluid: ml 1610-1890ml (1ml/kcal) Nutritional Problem 1. Problem Problem inadequate energy intake Etiology pt failed swallow eval Signs/Symptoms: pt on NPO and need alternative nutrition route Intervention/Recommendation Comments 1. Monitor NPO status. 2. If TF needed, recommend initiating Fibersource HN at 20ml/hr for first 24hr, increase 10ml/hr q12hr to goal rate of 55ml/hr continuous. It provides 1584kcal, 71g protein, 1069ml free water, meeting 100% of nutritional needs. 3. Monitor TF rate, tolerance, wt weekly, skin integrity and labs 4. F/U as high risk in 2-3 days, 09/12-09/13 Expected Outcomes/Goals Expected Outcomes/Goals 1. Pt to meet at least 75% of nutritional needs via nutrition support with tolerance 2. Wt stability, skin to remain intact, labs to approach WNL.
[2017-09-19 17:34] LABS: URINE MICROSCOPIC INDICATED? YES; URINE SOURCE FOLEY PORT
[2017-09-19 17:40] LABS: URINE BILIRUBIN NEGATIVE (NEGATIVE); URINE BLOOD LARGE (NEGATIVE); URINE GLUCOSE (UA) NEGATIVE (NEGATIVE); URINE KETONE NEGATIVE (NEGATIVE); URINE LEUKOCYTE ESTERASE NEGATIVE (NEGATIVE); URINE NITRATE NEGATIVE (NEGATIVE); URINE PH 7.5 (4.6 - 8.0); URINE PROTEIN NEGATIVE (NEGATIVE); URINE UROBILINOGEN 0.2 E.U./dL (0.2 - 1.0)
[2017-09-19 17:41] LABS: URINE CLARITY SLIGHTLY HAZY (CLEAR); URINE COLOR YELLOW
[2017-09-19 17:45] LABS: URINE BACTERIA NONE SEEN /hpf (NONE SEEN); URINE EPITHELIAL CELLS RARE /lpf (FEW); URINE RBC 50-100 /hpf (0-5); URINE WBC 0-2 /hpf (0-5)
--- NOTE | 2017-09-19 21:04 | Progress Notes ---
DATE: 09/19/2017 Case was discussed with staff of the patient, reviewed records. The patient continues to have poor insight. He is demented, confused, and unable to participate in meaningful conversation, also had many medical problems. His aggressive behavior is not as prominent, sleeping better. He has a G-tube. No side effects with the medication, no sedation, no nausea, and no extrapyramidal symptoms. We will continue to work with the patient in group therapy, milieu therapy, and adjust the medications as needed. JOB# [id number]
[2017-09-20] MEDS: metroNIDAZOLE 500mg/NS 100mL 500 MG/100 ML BAG IV SCH ×3 (00:23→16:35)
[2017-09-20] MEDS: D5-0.45NS 1,000 ML IV SCH (04:02)
--- NOTE | 2017-09-20 04:26 | Progress Notes ---
DATE: 09/19/2017 PROBLEM LIST: 1. Acute aspiration pneumonia, improving. 2. ALOC with dysphagia, has a G-tube. 3. Persistent leukocytosis, worsening, exact etiology not clear. SYMPTOMS: The patient is awake, mumbling, no meaningful communication could be done and no respiratory distress, etc. PHYSICAL EXAMINATION: VITAL SIGNS: T-max 97.3, blood pressure 107/73, heart rate is in 90s, respiration 18, and saturation is in 90s on room air. NECK: On exam, neck veins not visualized. Good bilateral carotid upstroke. CHEST: Shows diminished air entry with occasional secretory noise. HEART: Regular. ABDOMEN: Soft, nontender. EXTREMITIES: Shows no peripheral edema. DIAGNOSTIC STUDIES: The patient's chest x-ray, CT chest shows bilateral small effusion with patchy infiltrate, not significantly changed from before, and the patient had CT of the abdomen and pelvis, bilateral perinephric inflammatory changes, small amount of fluid in the bilateral retroperitoneal region, otherwise unremarkable. There is irregularity of the left iliac bone and also postsurgical changes in right femur. LABORATORY DATA: The patient's other laboratory studies, white count is slightly better to 26,000, hemoglobin 13.4. ASSESSMENT AND PLAN: 1. The patient has elevated white blood count with a slight pleural effusion, but no significant changes. 2. Significant pulmonary fibrosis change in lungs, exact etiology is not clearcut. I have discussed with GI. We will discuss with Infectious Diseases and see what the thoughts are and we will continue rest of other treatment, etc., and go from there. JOB# [id number]
[2017-09-20] MEDS: Piperacillin/Tazobact 2.25 gm in 0.9% NS 50 ML IV SCH ×3 (05:05→17:08)
[2017-09-20] MEDS: Budesonide 0.5 Mg/2 mL Ud HHN SCH ×2 (07:40→18:49)
[2017-09-20] MEDS: Albuterol/Ipratropium Neb 3 ML AERS HHN SCH ×4 (07:40→18:49)
[2017-09-20 08:24] LABS: % BASOPHILS 0.7 % (0.0-2.0); % EOSINOPHILS 1.4 % (0.0-5.0); % LYMPHOCYTES 9.8 % (20.0-50.0); % MONOCYTES 4.6 % (2.0-10.0); % NEUTROPHILS 83.5 % (40.0-80.0); BASOPHILE ABSOLUTE 0.1 Th/cumm (0-0.2); EOSINOPHILE ABSOLUTE 0.3 Th/cmm (0.1-0.4); HEMATOCRIT 34.2 % (41.0-60); HEMOGLOBIN 11.9 gm/dL (12-16); LYMPHOCYTE ABSOLUTE 1.9 Th/cmm (1.5-3.0); MEAN CELL VOLUME 87.4 fl (80-99); MEAN CORPUSCULAR HEMOGLOBIN 30.3 pg (27.0-31.0); MEAN CORPUSCULAR HGB CONC 34.7 pg (28.0-36.0); MEAN PLATELET VOLUME 7.3 fl; MONOCYTE ABSOLUTE 0.9 Th/cmm (0.3-1.0); NEUTROPHILE ABSOLUTE 15.7 Th/cmm (1.8-8.0); PLATELET COUNT 255 Th/cmm (150-400); RED BLOOD COUNT 3.92 Mil/cmm (3.80-5.80); RED CELL DISTRIBUTION WIDTH 14.5 % (11.5-20.0)
[2017-09-20 08:25] LABS: WHITE BLOOD COUNT 18.9 Th/cmm (4.8-10.8)
[2017-09-20 08:33] LABS: ALB/GLOB RATIO 1.3 (1.0-1.8); ALBUMIN 2.6 gm/dL (4.2-5.5); ALKALINE PHOSPHATASE 135 U/L (34-104); BILIRUBIN,TOTAL 0.7 mg/dL (0.3-1.0); BUN - UREA NITROGEN 39 mg/dL (7-25); CALCIUM SERUM 7.9 mg/dL (8.6-10.3); CHLORIDE 110 mEq/L (98-107); CREATININE - SERUM 1.1 mg/dL (0.7-1.3); GLUCOSE 126 mg/dL (70-105); SGOT 12 U/L (13-39); SGPT/ALT 12 U/L (7-52); SODIUM SERUM 143 mEq/L (136-145); TOTAL PROTEIN,SERUM 4.6 gm/dL (6.0-8.3)
--- NOTE | 2017-09-20 08:33 | GI Progress Note ---
Subjective - Review of Systems Subjective: NO EVENTS SOPHIE TUBE FEEDS Objective - Results Result Diagrams: 09/20/17 08:05 09/19/17 05:00 Recent Labs: Laboratory Last Values WBC 18.9 Th/cmm (4.8-10.8) H 09/20/17 08:05 RBC 3.92 Mil/cmm (3.80-5.80) 09/20/17 08:05 Hgb 11.9 gm/dL (12-16) L 09/20/17 08:05 Hct 34.2 % (41.0-60) L 09/20/17 08:05 MCV 87.4 fl (80-99) 09/20/17 08:05 MCH 30.3 pg (27.0-31.0) 09/20/17 08:05 MCHC Differential 34.7 pg (28.0-36.0) 09/20/17 08:05 RDW 14.5 % (11.5-20.0) 09/20/17 08:05 Plt Count 255 Th/cmm (150-400) 09/20/17 08:05 MPV 7.3 fl 09/20/17 08:05 Neutrophils % 83.5 % (40.0-80.0) H 09/20/17 08:05 Band Neutrophils % 2 % (0-10) 09/19/17 05:00 Lymphocytes % 9.8 % (20.0-50.0) L 09/20/17 08:05 Monocytes % 4.6 % (2.0-10.0) 09/20/17 08:05 Eosinophils % 1.4 % (0.0-5.0) 09/20/17 08:05 Basophils % 0.7 % (0.0-2.0) 09/20/17 08:05 Neutrophils (Manual) 85 % (40-80) H 09/19/17 05:00 Lymphocytes 10 % (20-50) L 09/19/17 05:00 Monocytes 2 % (2-10) 09/19/17 05:00 Eosinophils 1 % (0-5) 09/19/17 05:00 Platelet Estimate ADEQUATE (NORMAL) 09/18/17 05:40 PT 11.7 SECONDS (9.5-11.5) H 09/11/17 05:58 INR 1.12 (0.5-1.4) 09/11/17 05:58 Specimen Source Arterial 09/11/17 08:20 Sample Site RB 09/11/17 08:20 pH 7.45 (7.35-7.45) 09/11/17 08:20 pCO2 35.0 mmHg (35.0-45.0) 09/11/17 08:20 pO2 66.0 mmHg (80.0-100.0) L 09/11/17 08:20 HCO3 25.3 mEq/L (20.0-26.0) 09/11/17 08:20 Base Excess 0.6 mEq/L (-3.0-3.0) 09/11/17 08:20 O2 Saturation 94.0 % (92.0-100.0) 09/11/17 08:20 Franki Test POSITIVE 09/11/17 08:20 Vent Rate NA 09/11/17 08:20 Inspired O2 21 09/11/17 08:20 Tidal Volume NA 09/11/17 08:20 PEEP NA 09/11/17 08:20 Pressure (ins/psv/peep) NA 09/11/17 08:20 Critical Value SANDEEP CAMPOS 09/11/17 08:20 Sodium 139 mEq/L (136-145) 09/19/17 05:00 Potassium 4.0 mEq/L (3.5-5.1) 09/19/17 05:00 Chloride 106 mEq/L (98-107) 09/19/17 05:00 Carbon Dioxide 27.6 mEq/L (21.0-31.0) 09/19/17 05:00 Anion Gap 9.4 (7.0-16.0) 09/19/17 05:00 BUN 56 mg/dL (7-25) H 09/19/17 05:00 Creatinine 1.5 mg/dL (0.7-1.3) H 09/19/17 05:00 Est GFR ( Amer) TNP 09/19/17 05:00 Est GFR (Non-Af Amer) TNP 09/19/17 05:00 BUN/Creatinine Ratio 37.3 09/19/17 05:00 Glucose 115 mg/dL (70-105) H 09/19/17 05:00 POC Glucose 120 MG/DL (70 - 105) H 09/20/17 06:14 Calcium 8.4 mg/dL (8.6-10.3) L 09/19/17 05:00 Total Bilirubin 0.8 mg/dL (0.3-1.0) 09/19/17 05:00 AST 22 U/L (13-39) 09/19/17 05:00 ALT 15 U/L (7-52) 09/19/17 05:00 Alkaline Phosphatase 134 U/L (34-104) H 09/19/17 05:00 Troponin I 0.03 ng/mL (0.01-0.05) 09/09/17 10:15 B-Natriuretic Peptide 88.6 pg/mL (5.0-100.0) 09/10/17 05:40 Total Protein 4.9 gm/dL (6.0-8.3) L 09/19/17 05:00 Albumin 2.7 gm/dL (4.2-5.5) L 09/19/17 05:00 Globulin 2.2 gm/dL 09/19/17 05:00 Albumin/Globulin Ratio 1.2 (1.0-1.8) 09/19/17 05:00 Lipase 59 U/L (11-82) 09/19/17 05:00 TSH 0.53 uIU/ml (0.34-5.60) 09/11/17 05:58 Urine Source [place] 09/19/17 17:00 Urine Color YELLOW 09/19/17 17:00 Urine Clarity SLIGHTLY HAZY (CLEAR) 09/19/17 17:00 Urine pH 7.5 (4.6 - 8.0) 09/19/17 17:00 Ur Specific [place] <= 1.005 (1.005-1.030) 09/19/17 17:00 Urine Protein NEGATIVE mg/dL (NEGATIVE) 09/19/17 17:00 Urine Glucose (UA) NEGATIVE mg/dL (NEGATIVE) 09/19/17 17:00 Urine Ketones NEGATIVE mg/dL (NEGATIVE) 09/19/17 17:00 Urine Blood LARGE (NEGATIVE) H 09/19/17 17:00 Urine Nitrate NEGATIVE (NEGATIVE) 09/19/17 17:00 Urine Bilirubin NEGATIVE (NEGATIVE) 09/19/17 17:00 Urine Urobilinogen 0.2 E.U./dL (0.2 - 1.0) 09/19/17 17:00 Ur Leukocyte Esterase NEGATIVE (NEGATIVE) 09/19/17 17:00 Urine RBC 50-100 /hpf (0-5) H 09/19/17 17:00 Urine WBC 0-2 /hpf (0-5) 09/19/17 17:00 Ur Epithelial Cells RARE /lpf (FEW) 09/19/17 17:00 Urine Bacteria NONE SEEN /hpf (NONE SEEN) 09/19/17 17:00 Helicobacter pylori Ab NEGATIVE (NEGATIVE) 09/11/17 09:50 - Physical Exam Vitals and I&O: Vital Signs Temp 97.4 F 09/20/17 04:00 Pulse 84 09/20/17 08:08 Resp 16 09/20/17 08:08 BP 110/59 09/20/17 04:00 Pulse Ox 97 09/20/17 08:08 Intake & Output 09/19/17 09/20/17 09/20/17 18:59 06:59 18:59 Intake Total 1185 1200 Output Total 1800 1750 Balance -615 -550 Weight (lbs) 64.41 kg 59.891 kg Intake: Intake, IV Amount 300 1200 D5-0.45NS 1,000 ml @ 50 1000 mls/hr IV .Q20H ANG Rx#: [id number] Piperacillin Sodium/ 100 100 Tazobact 2.25 gm In Sodium Chloride 0.9% 50 ml @ 100 mls/hr IV Q6HR ANG Rx#:[id number] metroNIDAZOLE 500mg/NS 200 100 100mL 500 mg In 100 ml @ 100 mls/hr IV Q8H ANG Rx# :[id number] Tube Feeding 585 Other 300 Output: Urine 1800 1750 Other: # Bowel Movements 2 Stool Characteristics Formed Liquid Weight Source Bedscale Bedscale Active Medications: Current Medications Acetaminophen (Tylenol) 650 mg GT Q4H PRN PRN Reason: Mild pain, temp above 100 Stop: 11/07/17 22:07 Last Admin: 09/18/17 16:58 Dose: 650 mg Al Hydrox/Mg Hydrox/Simethicone (Maalox) 30 ml GT Q4HR PRN PRN Reason: GI distress Stop: 11/07/17 22:12 Albuterol/Ipratropium (Duoneb Neb) 3 ml HHN Q4H PRN PRN Reason: Wheezing Stop: 11/07/17 19:41 Last Admin: 09/09/17 07:34 Dose: 3 ml Albuterol/Ipratropium (Duoneb Neb) 3 ml HHN [id number] ANG Stop: 11/09/17 14:59 Last Admin: 09/20/17 07:40 Dose: 3 ml Amlodipine Besylate (Norvasc) 5 mg GT DAILY ANG Stop: 11/12/17 20:44 Last Admin: 09/19/17 08:31 Dose: 5 mg Ascorbic Acid (Vitamin C) 500 mg GT DAILY ANG Stop: 11/12/17 20:45 Last Admin: 09/19/17 08:31 Dose: 500 mg Bisacodyl (Dulcolax 10 Mg Supp) 10 mg RC DAILY PRN PRN Reason: Constipation Stop: 11/17/17 23:01 Budesonide (Pulmicort) 0.5 mg HHN BIDRT ANG Stop: 11/09/17 18:59 Last Admin: 09/20/17 07:40 Dose: 0.5 mg Docusate Sodium (Colace) 100 mg PO DAILY NAG Stop: 11/17/17 08:59 Last Admin: 09/19/17 08:31 Dose: 100 mg Donepezil HCl (Aricept) 10 mg GT HS ANG Stop: 11/12/17 20:48 Last Admin: 09/19/17 20:08 Dose: 10 mg Dextrose/Sodium Chloride (D5-0.45ns) 1,000 mls @ 50 mls/hr IV .Q20H ANG Stop: 11/09/17 08:14 Last Admin: 09/20/17 04:02 Dose: 50 mls/hr Metronidazole (Flagyl) 500 mg in 100 mls @ 100 mls/hr IV Q8H ANG Stop: 11/16/17 07:59 Last Infusion: 09/20/17 01:23 Dose: Infused Piperacillin Sod/Tazobactam (Sod 2.25 gm/ Sodium Chloride) 50 mls @ 100 mls/hr IV Q6HR ANG Stop: 11/18/17 11:59 Last Infusion: 09/20/17 05:35 Dose: Infused Lactobacillus Rhamnosus (Culturelle 15b) 1 each GT DAILY ANG Stop: 11/14/17 08:59 Last Admin: 09/19/17 08:32 Dose: 1 each Latanoprost (Xalatan 0.005% Ophth Soln) 1 drop EACH EYE HS ANG Stop: 11/08/17 20:59 Last Admin: 09/19/17 22:23 Dose: Not Given Lorazepam (Ativan) 1 mg GT Q6HR PRN; Protocol PRN Reason: Agitation Stop: 11/19/17 06:22 Last Admin: 09/20/17 06:38 Dose: 1 mg Losartan Potassium (Cozaar) 50 mg GT DAILY ANG Stop: 11/12/17 20:46 Last Admin: 09/19/17 08:32 Dose: 50 mg Magnesium Hydroxide (Milk Of Magnesia) 30 ml PO HS PRN PRN Reason: Constipation Stop: 11/07/17 22:20 Last Admin: 09/17/17 09:31 Dose: 30 ml Memantine (Namenda) 5 mg GT BID ANG Stop: 11/14/17 16:59 Last Admin: 09/19/17 17:01 Dose: 5 mg Mineral Oil (Mineral Oil 30 Ml) 30 ml GT TID ANG Stop: 11/18/17 13:59 Last Admin: 09/19/17 20:08 Dose: 30 ml Miscellaneous (Probiotic Screen) 1 ea MC PRN PRN PRN Reason: PROTOCOL Stop: 11/14/17 08:44 Miscellaneous (Zosyn Iv Per Pharmacy) 1 ea PRN PRN PRN Reason: PROTOCOL Stop: 11/14/17 09:53 Multivitamins/Vitamin C (Theragran) 1 tab GT DAILY ANG Stop: 11/12/17 20:54 Last Admin: 09/19/17 08:32 Dose: 1 tab Olanzapine (Zyprexa) 5 mg GT HS ANG PRN Reason: Protocol Stop: 11/12/17 20:54 Last Admin: 09/19/17 20:08 Dose: 5 mg Olanzapine (Zyprexa) 2.5 mg GT DAILY ANG PRN Reason: Protocol Stop: 11/12/17 20:55 Last Admin: 09/19/17 08:32 Dose: 2.5 mg Sodium Phosphate (Fleet Enema) 135 ml RC DAILY PRN PRN Reason: Constipation Stop: 11/17/17 23:02 Tamsulosin HCl (Flomax) 0.4 mg GT HS ANG Stop: 11/12/17 20:55 Last Admin: 09/19/17 20:08 Dose: 0.4 mg Zolpidem Tartrate (Ambien) 5 mg GT HS PRN PRN Reason: Insomnia Stop: 11/07/17 22:26 Last Admin: 09/14/17 01:16 Dose: 5 mg General: Alert HEENT: Atraumatic, PERRLA, EOMI Cardiovascular: Regular rate, Normal S1, Normal S2 Lungs: Other (rhonchi) Abdomen: Bowel sounds, Soft Extremities: Edema, no Clubbing, no Cyanosis Neurological: Normal gait, Other (bed ridden) Skin: no Rash Psych/Mental Status: Other (dementia) - Procedures Procedures: Procedures Procedure Code Date EGD PLACE GASTROSTOMY TUBE 37702 09/08/17 INSERTION OF FEEDING DEVICE INTO STOMACH, PERC APPROACH [id number] 09/08/17 Assessment/Plan - Assessment Assessment: 87 YO MALE WITH DYSPHAGIA S/P PEG SOPHIE TUBE FEEDS 1.CONT TUBE FEEDS 2.CONT SUPP CARE
[2017-09-20] MEDS: Lactobacillus Rhamnosus GG 15 Billion CFU CAP.SPRINK GT SCH (08:44)
[2017-09-20] MEDS: Multivitamin Tab GT SCH (08:45)
--- NOTE | 2017-09-20 09:08 | Infectious Disease Prog Note ---
Infectious Disease Subjective - Review of Systems Service Date: 09/20/17 Subjective: No change, no fever. Infectious Disease Objective - Results Result Diagrams: 09/20/17 08:05 09/20/17 08:05 Recent Labs: Laboratory Last Values WBC 18.9 Th/cmm (4.8-10.8) H 09/20/17 08:05 RBC 3.92 Mil/cmm (3.80-5.80) 09/20/17 08:05 Hgb 11.9 gm/dL (12-16) L 09/20/17 08:05 Hct 34.2 % (41.0-60) L 09/20/17 08:05 MCV 87.4 fl (80-99) 09/20/17 08:05 MCH 30.3 pg (27.0-31.0) 09/20/17 08:05 MCHC Differential 34.7 pg (28.0-36.0) 09/20/17 08:05 RDW 14.5 % (11.5-20.0) 09/20/17 08:05 Plt Count 255 Th/cmm (150-400) 09/20/17 08:05 MPV 7.3 fl 09/20/17 08:05 Neutrophils % 83.5 % (40.0-80.0) H 09/20/17 08:05 Band Neutrophils % 2 % (0-10) 09/19/17 05:00 Lymphocytes % 9.8 % (20.0-50.0) L 09/20/17 08:05 Monocytes % 4.6 % (2.0-10.0) 09/20/17 08:05 Eosinophils % 1.4 % (0.0-5.0) 09/20/17 08:05 Basophils % 0.7 % (0.0-2.0) 09/20/17 08:05 Neutrophils (Manual) 85 % (40-80) H 09/19/17 05:00 Lymphocytes 10 % (20-50) L 09/19/17 05:00 Monocytes 2 % (2-10) 09/19/17 05:00 Eosinophils 1 % (0-5) 09/19/17 05:00 Platelet Estimate ADEQUATE (NORMAL) 09/18/17 05:40 PT 11.7 SECONDS (9.5-11.5) H 09/11/17 05:58 INR 1.12 (0.5-1.4) 09/11/17 05:58 Specimen Source Arterial 09/11/17 08:20 Sample Site RB 09/11/17 08:20 pH 7.45 (7.35-7.45) 09/11/17 08:20 pCO2 35.0 mmHg (35.0-45.0) 09/11/17 08:20 pO2 66.0 mmHg (80.0-100.0) L 09/11/17 08:20 HCO3 25.3 mEq/L (20.0-26.0) 09/11/17 08:20 Base Excess 0.6 mEq/L (-3.0-3.0) 09/11/17 08:20 O2 Saturation 94.0 % (92.0-100.0) 09/11/17 08:20 Franki Test POSITIVE 09/11/17 08:20 Vent Rate NA 09/11/17 08:20 Inspired O2 21 09/11/17 08:20 Tidal Volume NA 09/11/17 08:20 PEEP NA 09/11/17 08:20 Pressure (ins/psv/peep) NA 09/11/17 08:20 Critical Value SANDEEP BETH 09/11/17 08:20 Sodium 143 mEq/L (136-145) 09/20/17 08:05 Potassium 4.0 mEq/L (3.5-5.1) 09/20/17 08:05 Chloride 110 mEq/L (98-107) H 09/20/17 08:05 Carbon Dioxide 31.0 mEq/L (21.0-31.0) 09/20/17 08:05 Anion Gap 6.0 (7.0-16.0) L 09/20/17 08:05 BUN 39 mg/dL (7-25) H 09/20/17 08:05 Creatinine 1.1 mg/dL (0.7-1.3) 09/20/17 08:05 Est GFR ( Amer) TNP 09/20/17 08:05 Est GFR (Non-Af Amer) TNP 09/20/17 08:05 BUN/Creatinine Ratio 35.5 09/20/17 08:05 Glucose 126 mg/dL (70-105) H 09/20/17 08:05 POC Glucose 120 MG/DL (70 - 105) H 09/20/17 06:14 Calcium 7.9 mg/dL (8.6-10.3) L 09/20/17 08:05 Total Bilirubin 0.7 mg/dL (0.3-1.0) 09/20/17 08:05 AST 12 U/L (13-39) L 09/20/17 08:05 ALT 12 U/L (7-52) 09/20/17 08:05 Alkaline Phosphatase 135 U/L (34-104) H 09/20/17 08:05 Troponin I 0.03 ng/mL (0.01-0.05) 09/09/17 10:15 B-Natriuretic Peptide 88.6 pg/mL (5.0-100.0) 09/10/17 05:40 Total Protein 4.6 gm/dL (6.0-8.3) L 09/20/17 08:05 Albumin 2.6 gm/dL (4.2-5.5) L 09/20/17 08:05 Globulin 2.0 gm/dL 09/20/17 08:05 Albumin/Globulin Ratio 1.3 (1.0-1.8) 09/20/17 08:05 Lipase 59 U/L (11-82) 09/19/17 05:00 TSH 0.53 uIU/ml (0.34-5.60) 09/11/17 05:58 Urine Source MANJARREZ PORT 09/19/17 17:00 Urine Color YELLOW 09/19/17 17:00 Urine Clarity SLIGHTLY HAZY (CLEAR) 09/19/17 17:00 Urine pH 7.5 (4.6 - 8.0) 09/19/17 17:00 Ur Specific [place] <= 1.005 (1.005-1.030) 09/19/17 17:00 Urine Protein NEGATIVE mg/dL (NEGATIVE) 09/19/17 17:00 Urine Glucose (UA) NEGATIVE mg/dL (NEGATIVE) 09/19/17 17:00 Urine Ketones NEGATIVE mg/dL (NEGATIVE) 09/19/17 17:00 Urine Blood LARGE (NEGATIVE) H 09/19/17 17:00 Urine Nitrate NEGATIVE (NEGATIVE) 09/19/17 17:00 Urine Bilirubin NEGATIVE (NEGATIVE) 09/19/17 17:00 Urine Urobilinogen 0.2 E.U./dL (0.2 - 1.0) 09/19/17 17:00 Ur Leukocyte Esterase NEGATIVE (NEGATIVE) 09/19/17 17:00 Urine RBC 50-100 /hpf (0-5) H 09/19/17 17:00 Urine WBC 0-2 /hpf (0-5) 09/19/17 17:00 Ur Epithelial Cells RARE /lpf (FEW) 09/19/17 17:00 Urine Bacteria NONE SEEN /hpf (NONE SEEN) 09/19/17 17:00 Helicobacter pylori Ab NEGATIVE (NEGATIVE) 09/11/17 09:50 - Physical Exam Vitals and I&O: Vital Signs Temp 97.4 F 09/20/17 04:00 Pulse 89 09/20/17 08:47 Resp 16 09/20/17 08:08 BP 112/54 09/20/17 08:47 Pulse Ox 97 09/20/17 08:08 Intake & Output 09/19/17 09/20/17 09/20/17 18:59 06:59 18:59 Intake Total 1185 1200 Output Total 1800 1750 Balance -615 -550 Weight (lbs) 64.41 kg 59.891 kg Intake: Intake, IV Amount 300 1200 D5-0.45NS 1,000 ml @ 50 1000 mls/hr IV .Q20H ANG Rx#: [id number] Piperacillin Sodium/ 100 100 Tazobact 2.25 gm In Sodium Chloride 0.9% 50 ml @ 100 mls/hr IV Q6HR ANG Rx#:[id number] metroNIDAZOLE 500mg/NS 200 100 100mL 500 mg In 100 ml @ 100 mls/hr IV Q8H ANG Rx# :[id number] Tube Feeding 585 Other 300 Output: Urine 1800 1750 Other: # Bowel Movements 2 Stool Characteristics Formed Liquid Weight Source Bedscale Bedscale Active Medications: Current Medications Acetaminophen (Tylenol) 650 mg GT Q4H PRN PRN Reason: Mild pain, temp above 100 Stop: 11/07/17 22:07 Last Admin: 09/18/17 16:58 Dose: 650 mg Al Hydrox/Mg Hydrox/Simethicone (Maalox) 30 ml GT Q4HR PRN PRN Reason: GI distress Stop: 11/07/17 22:12 Albuterol/Ipratropium (Duoneb Neb) 3 ml HHN Q4H PRN PRN Reason: Wheezing Stop: 11/07/17 19:41 Last Admin: 09/09/17 07:34 Dose: 3 ml Albuterol/Ipratropium (Duoneb Neb) 3 ml HHN [id number] ANG Stop: 11/09/17 14:59 Last Admin: 09/20/17 07:40 Dose: 3 ml Amlodipine Besylate (Norvasc) 5 mg GT DAILY ANG Stop: 11/12/17 20:44 Last Admin: 09/20/17 08:46 Dose: 5 mg Ascorbic Acid (Vitamin C) 500 mg GT DAILY ANG Stop: 11/12/17 20:45 Last Admin: 09/20/17 08:44 Dose: 500 mg Bisacodyl (Dulcolax 10 Mg Supp) 10 mg RC DAILY PRN PRN Reason: Constipation Stop: 11/17/17 23:01 Budesonide (Pulmicort) 0.5 mg HHN BIDRT ANG Stop: 11/09/17 18:59 Last Admin: 09/20/17 07:40 Dose: 0.5 mg Docusate Sodium (Colace) 100 mg PO DAILY ANG Stop: 11/17/17 08:59 Last Admin: 09/20/17 08:44 Dose: 100 mg Donepezil HCl (Aricept) 10 mg GT HS ANG Stop: 11/12/17 20:48 Last Admin: 09/19/17 20:08 Dose: 10 mg Dextrose/Sodium Chloride (D5-0.45ns) 1,000 mls @ 50 mls/hr IV .Q20H ANG Stop: 11/09/17 08:14 Last Admin: 09/20/17 04:02 Dose: 50 mls/hr Metronidazole (Flagyl) 500 mg in 100 mls @ 100 mls/hr IV Q8H ANG Stop: 11/16/17 07:59 Last Admin: 09/20/17 08:41 Dose: 100 mls/hr Piperacillin Sod/Tazobactam (Sod 2.25 gm/ Sodium Chloride) 50 mls @ 100 mls/hr IV Q6HR ANG Stop: 11/18/17 11:59 Last Infusion: 09/20/17 05:35 Dose: Infused Lactobacillus Rhamnosus (Culturelle 15b) 1 each GT DAILY ANG Stop: 11/14/17 08:59 Last Admin: 09/20/17 08:44 Dose: 1 each Latanoprost (Xalatan 0.005% Ophth Soln) 1 drop EACH EYE HS ANG Stop: 11/08/17 20:59 Last Admin: 09/19/17 22:23 Dose: Not Given Lorazepam (Ativan) 1 mg GT Q6HR PRN; Protocol PRN Reason: Agitation Stop: 11/19/17 06:22 Last Admin: 09/20/17 06:38 Dose: 1 mg Losartan Potassium (Cozaar) 50 mg GT DAILY ANG Stop: 11/12/17 20:46 Last Admin: 09/20/17 08:47 Dose: 50 mg Magnesium Hydroxide (Milk Of Magnesia) 30 ml PO HS PRN PRN Reason: Constipation Stop: 11/07/17 22:20 Last Admin: 09/17/17 09:31 Dose: 30 ml Memantine (Namenda) 5 mg GT BID ANG Stop: 11/14/17 16:59 Last Admin: 09/20/17 08:44 Dose: 5 mg Mineral Oil (Mineral Oil 30 Ml) 30 ml GT TID NAG Stop: 11/18/17 13:59 Last Admin: 09/20/17 08:44 Dose: 30 ml Miscellaneous (Probiotic Screen) 1 ea PRN PRN PRN Reason: PROTOCOL Stop: 11/14/17 08:44 Miscellaneous (Zosyn Iv Per Pharmacy) 1 ea PRN PRN PRN Reason: PROTOCOL Stop: 11/14/17 09:53 Multivitamins/Vitamin C (Theragran) 1 tab GT DAILY ANG Stop: 11/12/17 20:54 Last Admin: 09/20/17 08:45 Dose: 1 tab Olanzapine (Zyprexa) 5 mg GT HS ANG PRN Reason: Protocol Stop: 11/12/17 20:54 Last Admin: 09/19/17 20:08 Dose: 5 mg Olanzapine (Zyprexa) 2.5 mg GT DAILY ANG PRN Reason: Protocol Stop: 11/12/17 20:55 Last Admin: 09/20/17 08:45 Dose: 2.5 mg Sodium Phosphate (Fleet Enema) 135 ml RC DAILY PRN PRN Reason: Constipation Stop: 11/17/17 23:02 Tamsulosin HCl (Flomax) 0.4 mg GT HS ANG Stop: 11/12/17 20:55 Last Admin: 09/19/17 20:08 Dose: 0.4 mg Zolpidem Tartrate (Ambien) 5 mg GT HS PRN PRN Reason: Insomnia Stop: 11/07/17 22:26 Last Admin: 09/14/17 01:16 Dose: 5 mg General: no acute distress, well developed, well nourished HEENT: atraumatic, normocephalic, PERRLA, EOMI, moist mucous membrane Neck: supple, no thyromegaly, no lymphadenopathy Cardiovascular: S1S2, regular, systolic murmur Lungs: clear to auscultation bilaterally, clear to percussion, no wheeze Abdomen: soft, no tender, no distended Extremities: no cyanosis, no clubbing, no edema Neurological: awake, alert, oriented Skin: intact - Procedures Procedures: Procedures Procedure Code Date EGD PLACE GASTROSTOMY TUBE 03042 09/08/17 INSERTION OF FEEDING DEVICE INTO STOMACH, PERC APPROACH [id number] 09/08/17 Infectious Disease Assmt/Plan - Assessment Assessment: 1. Pneumonia. 2. Dementia. 3. Psychosis. 4. Anemia. 5. Benign prostatic hypertrophy. 6. Hypertension. 7. Glaucoma. 8. Prerenal azotemia. 9. Leukocytosis. - Plan Plan: Continue zosyn. and flagyl. Change zosyn to levaquin 250 mg po daily for 7 days with flagyl 500mg po bid ( 7days). Nutritional Asmnt/Malnutr-PDOC - Dietary Evaluation Malnutrition Findings (Please click <Entered> for more info): Nutritional Asmnt/Malnutrition Start: 09/10/17 18: 01 Text: Status: Complete Freq: Document 09/10/17 18:01 [facility] (Rec: 09/10/17 18:12 [facility] [id number]) Nutritional Asmnt/Malnutrition Patient General Information Nutritional Screening High Risk Diagnosis PNA Pertinent Medical Hx/Surgical Hx PNA Subjective Information Pt seen sleeping at time of visit. Per nurse, pt failed swallow eval this morning. ST recommended strict NPO. MD may order PEG placement tommorrow . Current Diet Order/ Nutrition Support NPO Pertinent Medications vit C, D5-0.45ns, levaquin, theragran Pertinent Labs 09/10 BUN 32 Nutritional Hx/Data Height 1.73 m Height (Calculated Centimeters) 172.7 Current Weight (lbs) 70.307 kg Weight (Calculated Kilograms) 70.3 Weight (Calculated Grams) 35592.8 [place] Body Weight 154 Body Mass Index (BMI) 23.6 Weight Status Approriate GI Symptoms GI Symptoms None Last BM 09/08 Difficult in: Swallowing Skin Integrity/Comment: reddened to lower back scabs on both feet Estimated Nutritional Goals BEE in Kcals: Using Current wt Calories/Kcals/Kg 23-27 Kcals Calculated 9882-9378 Protein: Using Current wt Protein g/k-1.2 Protein Calculated 63-74 Fluid: ml 1610-1890ml (1ml/kcal) Nutritional Problem 1. Problem Problem inadequate energy intake Etiology pt failed swallow eval Signs/Symptoms: pt on NPO and need alternative nutrition route Intervention/Recommendation Comments 1. Monitor NPO status. 2. If TF needed, recommend initiating Fibersource HN at 20ml/hr for first 24hr, increase 10ml/hr q12hr to goal rate of 55ml/hr continuous. It provides 1584kcal, 71g protein, 1069ml free water, meeting 100% of nutritional needs. 3. Monitor TF rate, tolerance, wt weekly, skin integrity and labs 4. F/U as high risk in 2-3 days, 09/12-09/13 Expected Outcomes/Goals Expected Outcomes/Goals 1. Pt to meet at least 75% of nutritional needs via nutrition support with tolerance 2. Wt stability, skin to remain intact, labs to approach WNL.
--- NOTE | 2017-09-20 10:02 | Diagnostic Imaging Report ---
Exam: Left hip joint. HISTORY: Abnormal findings on prior exam. Findings: Portable examination of the left hip joint at 1506 hours The head of the left femur is well within the acetabular fossa. There is no evidence of fracture or dislocation The visualized pelvis is intact. IMPRESSION: Normal left hip examination, demonstrates no evidence of fracture dislocation.
--- NOTE | 2017-09-20 12:52 | General Progress Note ---
Subjective - Review of Systems Subjective: not in distress. non communicative Objective - Results Result Diagrams: 09/20/17 08:05 09/20/17 08:05 Recent Labs: Laboratory Last Values WBC 18.9 Th/cmm (4.8-10.8) H 09/20/17 08:05 RBC 3.92 Mil/cmm (3.80-5.80) 09/20/17 08:05 Hgb 11.9 gm/dL (12-16) L 09/20/17 08:05 Hct 34.2 % (41.0-60) L 09/20/17 08:05 MCV 87.4 fl (80-99) 09/20/17 08:05 MCH 30.3 pg (27.0-31.0) 09/20/17 08:05 MCHC Differential 34.7 pg (28.0-36.0) 09/20/17 08:05 RDW 14.5 % (11.5-20.0) 09/20/17 08:05 Plt Count 255 Th/cmm (150-400) 09/20/17 08:05 MPV 7.3 fl 09/20/17 08:05 Neutrophils % 83.5 % (40.0-80.0) H 09/20/17 08:05 Band Neutrophils % 2 % (0-10) 09/19/17 05:00 Lymphocytes % 9.8 % (20.0-50.0) L 09/20/17 08:05 Monocytes % 4.6 % (2.0-10.0) 09/20/17 08:05 Eosinophils % 1.4 % (0.0-5.0) 09/20/17 08:05 Basophils % 0.7 % (0.0-2.0) 09/20/17 08:05 Neutrophils (Manual) 85 % (40-80) H 09/19/17 05:00 Lymphocytes 10 % (20-50) L 09/19/17 05:00 Monocytes 2 % (2-10) 09/19/17 05:00 Eosinophils 1 % (0-5) 09/19/17 05:00 Platelet Estimate ADEQUATE (NORMAL) 09/18/17 05:40 PT 11.7 SECONDS (9.5-11.5) H 09/11/17 05:58 INR 1.12 (0.5-1.4) 09/11/17 05:58 Specimen Source Arterial 09/11/17 08:20 Sample Site RB 09/11/17 08:20 pH 7.45 (7.35-7.45) 09/11/17 08:20 pCO2 35.0 mmHg (35.0-45.0) 09/11/17 08:20 pO2 66.0 mmHg (80.0-100.0) L 09/11/17 08:20 HCO3 25.3 mEq/L (20.0-26.0) 09/11/17 08:20 Base Excess 0.6 mEq/L (-3.0-3.0) 09/11/17 08:20 O2 Saturation 94.0 % (92.0-100.0) 09/11/17 08:20 Franki Test POSITIVE 09/11/17 08:20 Vent Rate NA 09/11/17 08:20 Inspired O2 21 09/11/17 08:20 Tidal Volume NA 09/11/17 08:20 PEEP NA 09/11/17 08:20 Pressure (ins/psv/peep) NA 09/11/17 08:20 Critical Value SANDEEP CAMPOS 09/11/17 08:20 Sodium 143 mEq/L (136-145) 09/20/17 08:05 Potassium 4.0 mEq/L (3.5-5.1) 09/20/17 08:05 Chloride 110 mEq/L (98-107) H 09/20/17 08:05 Carbon Dioxide 31.0 mEq/L (21.0-31.0) 09/20/17 08:05 Anion Gap 6.0 (7.0-16.0) L 09/20/17 08:05 BUN 39 mg/dL (7-25) H 09/20/17 08:05 Creatinine 1.1 mg/dL (0.7-1.3) 09/20/17 08:05 Est GFR ( Amer) TNP 09/20/17 08:05 Est GFR (Non-Af Amer) TNP 09/20/17 08:05 BUN/Creatinine Ratio 35.5 09/20/17 08:05 Glucose 126 mg/dL (70-105) H 09/20/17 08:05 POC Glucose 120 MG/DL (70 - 105) H 09/20/17 06:14 Calcium 7.9 mg/dL (8.6-10.3) L 09/20/17 08:05 Total Bilirubin 0.7 mg/dL (0.3-1.0) 09/20/17 08:05 AST 12 U/L (13-39) L 09/20/17 08:05 ALT 12 U/L (7-52) 09/20/17 08:05 Alkaline Phosphatase 135 U/L (34-104) H 09/20/17 08:05 Troponin I 0.03 ng/mL (0.01-0.05) 09/09/17 10:15 B-Natriuretic Peptide 88.6 pg/mL (5.0-100.0) 09/10/17 05:40 Total Protein 4.6 gm/dL (6.0-8.3) L 09/20/17 08:05 Albumin 2.6 gm/dL (4.2-5.5) L 09/20/17 08:05 Globulin 2.0 gm/dL 09/20/17 08:05 Albumin/Globulin Ratio 1.3 (1.0-1.8) 09/20/17 08:05 Lipase 59 U/L (11-82) 09/19/17 05:00 TSH 0.53 uIU/ml (0.34-5.60) 09/11/17 05:58 Urine Source MANJARREZ PORT 09/19/17 17:00 Urine Color YELLOW 09/19/17 17:00 Urine Clarity SLIGHTLY HAZY (CLEAR) 09/19/17 17:00 Urine pH 7.5 (4.6 - 8.0) 09/19/17 17:00 Ur Specific [place] <= 1.005 (1.005-1.030) 09/19/17 17:00 Urine Protein NEGATIVE mg/dL (NEGATIVE) 09/19/17 17:00 Urine Glucose (UA) NEGATIVE mg/dL (NEGATIVE) 09/19/17 17:00 Urine Ketones NEGATIVE mg/dL (NEGATIVE) 09/19/17 17:00 Urine Blood LARGE (NEGATIVE) H 09/19/17 17:00 Urine Nitrate NEGATIVE (NEGATIVE) 09/19/17 17:00 Urine Bilirubin NEGATIVE (NEGATIVE) 09/19/17 17:00 Urine Urobilinogen 0.2 E.U./dL (0.2 - 1.0) 09/19/17 17:00 Ur Leukocyte Esterase NEGATIVE (NEGATIVE) 09/19/17 17:00 Urine RBC 50-100 /hpf (0-5) H 09/19/17 17:00 Urine WBC 0-2 /hpf (0-5) 09/19/17 17:00 Ur Epithelial Cells RARE /lpf (FEW) 09/19/17 17:00 Urine Bacteria NONE SEEN /hpf (NONE SEEN) 09/19/17 17:00 Helicobacter pylori Ab NEGATIVE (NEGATIVE) 09/11/17 09:50 - Physical Exam Vitals and I&O: Vital Signs Temp 97.5 F 09/20/17 08:00 Pulse 71 09/20/17 11:14 Resp 14 09/20/17 11:14 BP 112/54 09/20/17 08:47 Pulse Ox 96 09/20/17 11:14 Intake & Output 09/19/17 09/20/17 09/20/17 18:59 06:59 18:59 Intake Total 1185 1200 115 Output Total 1800 1750 Balance -615 -550 115 Weight (lbs) 64.41 kg 59.891 kg 50.944 kg Intake: Intake, IV Amount 300 1200 115 D5-0.45NS 1,000 ml @ 50 1000 mls/hr IV .Q20H ANG Rx#: [id number] Piperacillin Sodium/ 100 100 50 Tazobact 2.25 gm In Sodium Chloride 0.9% 50 ml @ 100 mls/hr IV Q6HR ANG Rx#:[id number] metroNIDAZOLE 500mg/NS 200 100 65 100mL 500 mg In 100 ml @ 100 mls/hr IV Q8H ANG Rx# :[id number] Tube Feeding 585 Other 300 Output: Urine 1800 1750 Other: # Bowel Movements 2 Stool Characteristics Formed Liquid Liquid Weight Source Bedscale Bedscale Bedscale Active Medications: Current Medications Acetaminophen (Tylenol) 650 mg GT Q4H PRN PRN Reason: Mild pain, temp above 100 Stop: 11/07/17 22:07 Last Admin: 09/18/17 16:58 Dose: 650 mg Al Hydrox/Mg Hydrox/Simethicone (Maalox) 30 ml GT Q4HR PRN PRN Reason: GI distress Stop: 11/07/17 22:12 Albuterol/Ipratropium (Duoneb Neb) 3 ml HHN Q4H PRN PRN Reason: Wheezing Stop: 11/07/17 19:41 Last Admin: 09/09/17 07:34 Dose: 3 ml Albuterol/Ipratropium (Duoneb Neb) 3 ml HHN [id number] ANG Stop: 11/09/17 14:59 Last Admin: 09/20/17 11:12 Dose: 3 ml Amlodipine Besylate (Norvasc) 5 mg GT DAILY ANG Stop: 11/12/17 20:44 Last Admin: 09/20/17 08:46 Dose: 5 mg Ascorbic Acid (Vitamin C) 500 mg GT DAILY ANG Stop: 11/12/17 20:45 Last Admin: 09/20/17 08:44 Dose: 500 mg Bisacodyl (Dulcolax 10 Mg Supp) 10 mg RC DAILY PRN PRN Reason: Constipation Stop: 11/17/17 23:01 Budesonide (Pulmicort) 0.5 mg HHN BIDRT ANG Stop: 11/09/17 18:59 Last Admin: 09/20/17 07:40 Dose: 0.5 mg Docusate Sodium (Colace) 100 mg PO DAILY ANG Stop: 11/17/17 08:59 Last Admin: 09/20/17 08:44 Dose: 100 mg Donepezil HCl (Aricept) 10 mg GT HS ANG Stop: 11/12/17 20:48 Last Admin: 09/19/17 20:08 Dose: 10 mg Dextrose/Sodium Chloride (D5-0.45ns) 1,000 mls @ 50 mls/hr IV .Q20H ANG Stop: 11/09/17 08:14 Last Admin: 09/20/17 04:02 Dose: 50 mls/hr Metronidazole (Flagyl) 500 mg in 100 mls @ 100 mls/hr IV Q8H ANG Stop: 11/16/17 07:59 Last Infusion: 09/20/17 12:50 Dose: 0 mls/hr Piperacillin Sod/Tazobactam (Sod 2.25 gm/ Sodium Chloride) 50 mls @ 100 mls/hr IV Q6HR ANG Stop: 11/18/17 11:59 Last Infusion: 09/20/17 12:50 Dose: Infused Lactobacillus Rhamnosus (Culturelle 15b) 1 each GT DAILY ANG Stop: 11/14/17 08:59 Last Admin: 09/20/17 08:44 Dose: 1 each Latanoprost (Xalatan 0.005% Ophth Soln) 1 drop EACH EYE HS ANG Stop: 11/08/17 20:59 Last Admin: 09/19/17 22:23 Dose: Not Given Lorazepam (Ativan) 1 mg GT Q6HR PRN; Protocol PRN Reason: Agitation Stop: 11/19/17 06:22 Last Admin: 09/20/17 06:38 Dose: 1 mg Losartan Potassium (Cozaar) 50 mg GT DAILY ANG Stop: 11/12/17 20:46 Last Admin: 09/20/17 08:47 Dose: 50 mg Magnesium Hydroxide (Milk Of Magnesia) 30 ml PO HS PRN PRN Reason: Constipation Stop: 11/07/17 22:20 Last Admin: 09/17/17 09:31 Dose: 30 ml Memantine (Namenda) 5 mg GT BID ANG Stop: 11/14/17 16:59 Last Admin: 09/20/17 08:44 Dose: 5 mg Mineral Oil (Mineral Oil 30 Ml) 30 ml GT TID ANG Stop: 11/18/17 13:59 Last Admin: 09/20/17 08:44 Dose: 30 ml Miscellaneous (Probiotic Screen) 1 ea PRN PRN PRN Reason: PROTOCOL Stop: 11/14/17 08:44 Miscellaneous (Zosyn Iv Per Pharmacy) 1 ea PRN PRN PRN Reason: PROTOCOL Stop: 11/14/17 09:53 Multivitamins/Vitamin C (Theragran) 1 tab GT DAILY ANG Stop: 11/12/17 20:54 Last Admin: 09/20/17 08:45 Dose: 1 tab Olanzapine (Zyprexa) 5 mg GT HS ANG PRN Reason: Protocol Stop: 11/12/17 20:54 Last Admin: 09/19/17 20:08 Dose: 5 mg Olanzapine (Zyprexa) 2.5 mg GT DAILY ANG PRN Reason: Protocol Stop: 11/12/17 20:55 Last Admin: 09/20/17 08:45 Dose: 2.5 mg Sodium Phosphate (Fleet Enema) 135 ml RC DAILY PRN PRN Reason: Constipation Stop: 11/17/17 23:02 Tamsulosin HCl (Flomax) 0.4 mg GT HS ANG Stop: 11/12/17 20:55 Last Admin: 09/19/17 20:08 Dose: 0.4 mg Zolpidem Tartrate (Ambien) 5 mg GT HS PRN PRN Reason: Insomnia Stop: 11/07/17 22:26 Last Admin: 09/14/17 01:16 Dose: 5 mg General: Alert HEENT: Atraumatic, PERRLA, EOMI Cardiovascular: Regular rate, Normal S1, Normal S2 Lungs: Other (rhonchi) Abdomen: Bowel sounds, Soft Extremities: Edema, no Clubbing, no Cyanosis Neurological: Normal gait, Other (bed ridden) Skin: no Rash Psych/Mental Status: Other (dementia) - Procedures Procedures: Procedures Procedure Code Date EGD PLACE GASTROSTOMY TUBE 75977 09/08/17 INSERTION OF FEEDING DEVICE INTO STOMACH, PERC APPROACH [id number] 09/08/17 Assessment/Plan - Assessment Assessment: * Reactive leukocytosis * pneumonia Follow cbc Nutritional Asmnt/Malnutr-PDOC - Dietary Evaluation Malnutrition Findings (Please click <Entered> for more info): Nutritional Asmnt/Malnutrition Start: 09/10/17 18: 01 Text: Status: Complete Freq: Document 09/10/17 18:01 KISHORE (Rec: 09/10/17 18:12 [id number] Nutritional Asmnt/Malnutrition Patient General Information Nutritional Screening High Risk Diagnosis PNA Pertinent Medical Hx/Surgical Hx PNA Subjective Information Pt seen sleeping at time of visit. Per nurse, pt failed swallow eval this morning. ST recommended strict NPO. MD may order PEG placement tommorrow . Current Diet Order/ Nutrition Support NPO Pertinent Medications vit C, D5-0.45ns, levaquin, theragran Pertinent Labs 09/10 BUN 32 Nutritional Hx/Data Height 1.73 m Height (Calculated Centimeters) 172.7 Current Weight (lbs) 70.307 kg Weight (Calculated Kilograms) 70.3 Weight (Calculated Grams) 92142.8 [place] Body Weight 154 Body Mass Index (BMI) 23.6 Weight Status Approriate GI Symptoms GI Symptoms None Last BM 09/08 Difficult in: Swallowing Skin Integrity/Comment: reddened to lower back scabs on both feet Estimated Nutritional Goals BEE in Kcals: Using Current wt Calories/Kcals/Kg 23-27 Kcals Calculated 0032-6604 Protein: Using Current wt Protein g/k-1.2 Protein Calculated 63-74 Fluid: ml 1610-1890ml (1ml/kcal) Nutritional Problem 1. Problem Problem inadequate energy intake Etiology pt failed swallow eval Signs/Symptoms: pt on NPO and need alternative nutrition route Intervention/Recommendation Comments 1. Monitor NPO status. 2. If TF needed, recommend initiating Fibersource HN at 20ml/hr for first 24hr, increase 10ml/hr q12hr to goal rate of 55ml/hr continuous. It provides 1584kcal, 71g protein, 1069ml free water, meeting 100% of nutritional needs. 3. Monitor TF rate, tolerance, wt weekly, skin integrity and labs 4. F/U as high risk in 2-3 days, 09/12-09/13 Expected Outcomes/Goals Expected Outcomes/Goals 1. Pt to meet at least 75% of nutritional needs via nutrition support with tolerance 2. Wt stability, skin to remain intact, labs to approach WNL.
--- NOTE | 2017-09-20 23:29 | Progress Notes ---
DATE: 09/20/2017 PULMONARY AND CRITICAL CARE PROGRESS NOTE PROBLEM LIST: 1. Aspiration pneumonia with respiratory failure, improving. 2. Encephalopathic state. 3. Dysphagia. 4. Persistent leukocytosis. SYMPTOMS: The patient is quite agitated today, but no respiratory distress, etc. Currently, breathing without oxygen. PHYSICAL EXAMINATION: VITAL SIGNS: Temperature is 98.7, blood pressure 140/69, respirations 18, saturation 99% on room air. NECK: Veins not visualized. CHEST: Shows diminished air entry with occasional rhonchi. HEART: Regular. ABDOMEN: Soft, nontender. EXTREMITIES: Shows no peripheral edema. LABORATORY DATA: White count has dropped down to 18,000, hemoglobin 11.9 and patient's chloride is 110. The sodium is 143. ASSESSMENT: Finally, the patient is doing better at least a leukocytosis luciano, white count is much better improving from 28 to 18. PLANS AND SUGGESTIONS: We will go ahead and continue current treatment. We will follow through other studies in the next few days, etc., and see how he does and go from there. JOB# [id number]
[2017-09-21] MEDS: Piperacillin/Tazobact 2.25 gm in 0.9% NS 50 ML IV SCH ×4 (00:23→19:00)
[2017-09-21] MEDS: metroNIDAZOLE 500mg/NS 100mL 500 MG/100 ML BAG IV SCH ×3 (01:10→16:26)
[2017-09-21 07:02] LABS: % BASOPHILS 0.2 % (0.0-2.0); % EOSINOPHILS 1.3 % (0.0-5.0); % LYMPHOCYTES 10.2 % (20.0-50.0); % MONOCYTES 8.2 % (2.0-10.0); % NEUTROPHILS 80.1 % (40.0-80.0); EOSINOPHILE ABSOLUTE 0.2 Th/cmm (0.1-0.4); HEMATOCRIT 34.9 % (41.0-60); HEMOGLOBIN 11.8 gm/dL (12-16); LYMPHOCYTE ABSOLUTE 1.7 Th/cmm (1.5-3.0); MEAN CELL VOLUME 88.7 fl (80-99); MEAN CORPUSCULAR HGB CONC 33.9 pg (28.0-36.0); MEAN PLATELET VOLUME 7.9 fl; MONOCYTE ABSOLUTE 1.3 Th/cmm (0.3-1.0); PLATELET COUNT 257 Th/cmm (150-400); RED BLOOD COUNT 3.93 Mil/cmm (3.80-5.80); RED CELL DISTRIBUTION WIDTH 14.5 % (11.5-20.0)
[2017-09-21 07:05] LABS: WHITE BLOOD COUNT 16.2 Th/cmm (4.8-10.8)
[2017-09-21] MEDS: Budesonide 0.5 Mg/2 mL Ud HHN SCH ×2 (07:22→19:27)
[2017-09-21] MEDS: Albuterol/Ipratropium Neb 3 ML AERS HHN SCH ×4 (07:22→19:27)
[2017-09-21 07:30] LABS: ANION GAP 8.4 (7.0-16.0); BUN - UREA NITROGEN 39 mg/dL (7-25); CALCIUM SERUM 8.1 mg/dL (8.6-10.3); CARBON DIOXIDE 27.5 mEq/L (21.0-31.0); CHLORIDE 110 mEq/L (98-107); CREATININE - SERUM 1.2 mg/dL (0.7-1.3); GLUCOSE 140 mg/dL (70-105); POTASSIUM SERUM 3.9 mEq/L (3.5-5.1); SODIUM SERUM 142 mEq/L (136-145)
[2017-09-21] MEDS: Lactobacillus Rhamnosus GG 15 Billion CFU CAP.SPRINK GT SCH (08:25)
[2017-09-21] MEDS: Multivitamin Tab GT SCH (08:25)
--- NOTE | 2017-09-21 08:34 | GI Progress Note ---
Subjective - Review of Systems Subjective: NO EVENTS SOPHIE TUBE FEEDS Objective - Results Result Diagrams: 09/21/17 06:42 09/21/17 06:42 Recent Labs: Laboratory Last Values WBC 16.2 Th/cmm (4.8-10.8) H 09/21/17 06:42 RBC 3.93 Mil/cmm (3.80-5.80) 04 06:42 Hgb 11.8 gm/dL (12-16) L 09/21/17 06:42 Hct 34.9 % (41.0-60) L 09/21/17 06:42 MCV 88.7 fl (80-99) 04 06:42 MCH 30.0 pg (27.0-31.0) 04 06:42 MCHC Differential 33.9 pg (28.0-36.0) 09/21/17 06:42 RDW 14.5 % (11.5-20.0) 09/21/17 06:42 Plt Count 257 Th/cmm (150-400) 09/21/17 06:42 MPV 7.9 fl 09/21/17 06:42 Neutrophils % 80.1 % (40.0-80.0) H 09/21/17 06:42 Band Neutrophils % 2 % (0-10) 09/19/17 05:00 Lymphocytes % 10.2 % (20.0-50.0) L 09/21/17 06:42 Monocytes % 8.2 % (2.0-10.0) 09/21/17 06:42 Eosinophils % 1.3 % (0.0-5.0) 09/21/17 06:42 Basophils % 0.2 % (0.0-2.0) 09/21/17 06:42 Neutrophils (Manual) 85 % (40-80) H 09/19/17 05:00 Lymphocytes 10 % (20-50) L 09/19/17 05:00 Monocytes 2 % (2-10) 09/19/17 05:00 Eosinophils 1 % (0-5) 09/19/17 05:00 Platelet Estimate ADEQUATE (NORMAL) 09/18/17 05:40 PT 11.7 SECONDS (9.5-11.5) H 09/11/17 05:58 INR 1.12 (0.5-1.4) 09/11/17 05:58 Specimen Source Arterial 09/11/17 08:20 Sample Site RB 09/11/17 08:20 pH 7.45 (7.35-7.45) 09/11/17 08:20 pCO2 35.0 mmHg (35.0-45.0) 09/11/17 08:20 pO2 66.0 mmHg (80.0-100.0) L 09/11/17 08:20 HCO3 25.3 mEq/L (20.0-26.0) 09/11/17 08:20 Base Excess 0.6 mEq/L (-3.0-3.0) 09/11/17 08:20 O2 Saturation 94.0 % (92.0-100.0) 09/11/17 08:20 Franki Test POSITIVE 09/11/17 08:20 Vent Rate NA 09/11/17 08:20 Inspired O2 21 09/11/17 08:20 Tidal Volume NA 09/11/17 08:20 PEEP NA 09/11/17 08:20 Pressure (ins/psv/peep) NA 09/11/17 08:20 Critical Value SANDEEP CAMPOS 09/11/17 08:20 Sodium 142 mEq/L (136-145) 09/21/17 06:42 Potassium 3.9 mEq/L (3.5-5.1) 09/21/17 06:42 Chloride 110 mEq/L (98-107) H 09/21/17 06:42 Carbon Dioxide 27.5 mEq/L (21.0-31.0) 09/21/17 06:42 Anion Gap 8.4 (7.0-16.0) 09/21/17 06:42 BUN 39 mg/dL (7-25) H 09/21/17 06:42 Creatinine 1.2 mg/dL (0.7-1.3) 09/21/17 06:42 Est GFR ( Amer) TNP 09/21/17 06:42 Est GFR (Non-Af Amer) TNP 09/21/17 06:42 BUN/Creatinine Ratio 32.5 09/21/17 06:42 Glucose 140 mg/dL (70-105) H 09/21/17 06:42 POC Glucose 120 MG/DL (70 - 105) H 09/20/17 06:14 Calcium 8.1 mg/dL (8.6-10.3) L 09/21/17 06:42 Total Bilirubin 0.7 mg/dL (0.3-1.0) 09/20/17 08:05 AST 12 U/L (13-39) L 09/20/17 08:05 ALT 12 U/L (7-52) 09/20/17 08:05 Alkaline Phosphatase 135 U/L (34-104) H 09/20/17 08:05 Troponin I 0.03 ng/mL (0.01-0.05) 09/09/17 10:15 B-Natriuretic Peptide 88.6 pg/mL (5.0-100.0) 09/10/17 05:40 Total Protein 4.6 gm/dL (6.0-8.3) L 09/20/17 08:05 Albumin 2.6 gm/dL (4.2-5.5) L 09/20/17 08:05 Globulin 2.0 gm/dL 09/20/17 08:05 Albumin/Globulin Ratio 1.3 (1.0-1.8) 09/20/17 08:05 Lipase 59 U/L (11-82) 09/19/17 05:00 TSH 0.53 uIU/ml (0.34-5.60) 09/11/17 05:58 Urine Source MANJARREZ PORT 09/19/17 17:00 Urine Color YELLOW 09/19/17 17:00 Urine Clarity SLIGHTLY HAZY (CLEAR) 09/19/17 17:00 Urine pH 7.5 (4.6 - 8.0) 09/19/17 17:00 Ur Specific [place] <= 1.005 (1.005-1.030) 09/19/17 17:00 Urine Protein NEGATIVE mg/dL (NEGATIVE) 09/19/17 17:00 Urine Glucose (UA) NEGATIVE mg/dL (NEGATIVE) 09/19/17 17:00 Urine Ketones NEGATIVE mg/dL (NEGATIVE) 09/19/17 17:00 Urine Blood LARGE (NEGATIVE) H 09/19/17 17:00 Urine Nitrate NEGATIVE (NEGATIVE) 09/19/17 17:00 Urine Bilirubin NEGATIVE (NEGATIVE) 09/19/17 17:00 Urine Urobilinogen 0.2 E.U./dL (0.2 - 1.0) 09/19/17 17:00 Ur Leukocyte Esterase NEGATIVE (NEGATIVE) 09/19/17 17:00 Urine RBC 50-100 /hpf (0-5) H 09/19/17 17:00 Urine WBC 0-2 /hpf (0-5) 09/19/17 17:00 Ur Epithelial Cells RARE /lpf (FEW) 09/19/17 17:00 Urine Bacteria NONE SEEN /hpf (NONE SEEN) 09/19/17 17:00 Helicobacter pylori Ab NEGATIVE (NEGATIVE) 09/11/17 09:50 - Physical Exam Vitals and I&O: Vital Signs Temp 98.6 F 09/21/17 07:49 Pulse 82 09/21/17 08:26 Resp 19 09/21/17 07:49 BP 102/52 09/21/17 08:26 Pulse Ox 96 09/21/17 07:49 Intake & Output 09/20/17 09/21/17 09/21/17 18:59 06:59 18:59 Intake Total 1185 50 100 Output Total 800 1000 Balance 385 -950 100 Weight (lbs) 50.802 kg 84.141 kg Intake: Intake, IV Amount 265 50 100 Piperacillin Sodium/ 100 50 Tazobact 2.25 gm In Sodium Chloride 0.9% 50 ml @ 100 mls/hr IV Q6HR ANG Rx#:[id number] metroNIDAZOLE 500mg/NS 165 100 100mL 500 mg In 100 ml @ 100 mls/hr IV Q8H ANG Rx# :[id number] Tube Feeding 720 Other 200 Output: Urine 800 1000 Other: # Voids 3 # Bowel Movements 0 0 Stool Characteristics Liquid Liquid Weight Source Bedscale Bedscale Active Medications: Current Medications Acetaminophen (Tylenol) 650 mg GT Q4H PRN PRN Reason: Mild pain, temp above 100 Stop: 11/07/17 22:07 Last Admin: 09/21/17 00:22 Dose: 650 mg Al Hydrox/Mg Hydrox/Simethicone (Maalox) 30 ml GT Q4HR PRN PRN Reason: GI distress Stop: 11/07/17 22:12 Albuterol/Ipratropium (Duoneb Neb) 3 ml HHN Q4H PRN PRN Reason: Wheezing Stop: 11/07/17 19:41 Last Admin: 09/09/17 07:34 Dose: 3 ml Albuterol/Ipratropium (Duoneb Neb) 3 ml HHN [id number] ANG Stop: 11/09/17 14:59 Last Admin: 09/21/17 07:22 Dose: 3 ml Amlodipine Besylate (Norvasc) 5 mg GT DAILY ANG Stop: 11/12/17 20:44 Last Admin: 09/21/17 08:26 Dose: Not Given Ascorbic Acid (Vitamin C) 500 mg GT DAILY ANG Stop: 11/12/17 20:45 Last Admin: 09/21/17 08:25 Dose: 500 mg Bisacodyl (Dulcolax 10 Mg Supp) 10 mg RC DAILY PRN PRN Reason: Constipation Stop: 11/17/17 23:01 Budesonide (Pulmicort) 0.5 mg HHN BIDRT ANG Stop: 11/09/17 18:59 Last Admin: 09/21/17 07:22 Dose: 0.5 mg Docusate Sodium (Colace) 100 mg PO DAILY ANG Stop: 11/17/17 08:59 Last Admin: 09/21/17 08:25 Dose: 100 mg Donepezil HCl (Aricept) 10 mg GT HS ANG Stop: 11/12/17 20:48 Last Admin: 09/20/17 21:20 Dose: 10 mg Dextrose/Sodium Chloride (D5-0.45ns) 1,000 mls @ 50 mls/hr IV .Q20H ANG Stop: 11/09/17 08:14 Last Admin: 09/20/17 04:02 Dose: 50 mls/hr Metronidazole (Flagyl) 500 mg in 100 mls @ 100 mls/hr IV Q8H ANG Stop: 11/16/17 07:59 Last Admin: 09/21/17 08:24 Dose: 100 mls/hr Piperacillin Sod/Tazobactam (Sod 2.25 gm/ Sodium Chloride) 50 mls @ 100 mls/hr IV Q6HR ANG Stop: 11/18/17 11:59 Last Admin: 09/21/17 05:49 Dose: 100 mls/hr Lactobacillus Rhamnosus (Culturelle 15b) 1 each GT DAILY ANG Stop: 11/14/17 08:59 Last Admin: 09/21/17 08:25 Dose: 1 each Latanoprost (Xalatan 0.005% Oph Soln) 1 drop EACH EYE HS ANG Stop: 11/08/17 20:59 Last Admin: 09/20/17 21:31 Dose: Not Given Lorazepam (Ativan) 1 mg GT Q6HR PRN; Protocol PRN Reason: Agitation Stop: 11/19/17 06:22 Last Admin: 09/20/17 17:49 Dose: 1 mg Losartan Potassium (Cozaar) 50 mg GT DAILY ANG Stop: 11/12/17 20:46 Last Admin: 09/21/17 08:26 Dose: Not Given Magnesium Hydroxide (Milk Of Magnesia) 30 ml PO HS PRN PRN Reason: Constipation Stop: 11/07/17 22:20 Last Admin: 09/17/17 09:31 Dose: 30 ml Memantine (Namenda) 5 mg GT BID ANG Stop: 11/14/17 16:59 Last Admin: 09/21/17 08:25 Dose: 5 mg Mineral Oil (Mineral Oil 30 Ml) 30 ml GT TID ANG Stop: 11/18/17 13:59 Last Admin: 09/21/17 08:27 Dose: 30 ml Miscellaneous (Probiotic Screen) 1 ea PRN PRN PRN Reason: PROTOCOL Stop: 11/14/17 08:44 Miscellaneous (Zosyn Iv Per Pharmacy) 1 ea PRN PRN PRN Reason: PROTOCOL Stop: 11/14/17 09:53 Multivitamins/Vitamin C (Theragran) 1 tab GT DAILY ANG Stop: 11/12/17 20:54 Last Admin: 09/21/17 08:25 Dose: 1 tab Olanzapine (Zyprexa) 5 mg GT HS ANG PRN Reason: Protocol Stop: 11/12/17 20:54 Last Admin: 09/20/17 21:19 Dose: 5 mg Olanzapine (Zyprexa) 2.5 mg GT DAILY ANG PRN Reason: Protocol Stop: 11/12/17 20:55 Last Admin: 09/21/17 08:28 Dose: 2.5 mg Sodium Phosphate (Fleet Enema) 135 ml RC DAILY PRN PRN Reason: Constipation Stop: 11/17/17 23:02 Tamsulosin HCl (Flomax) 0.4 mg GT HS ANG Stop: 11/12/17 20:55 Last Admin: 09/20/17 21:20 Dose: 0.4 mg Zolpidem Tartrate (Ambien) 5 mg GT HS PRN PRN Reason: Insomnia Stop: 11/07/17 22:26 Last Admin: 09/14/17 01:16 Dose: 5 mg General: Alert HEENT: Atraumatic, PERRLA, EOMI Cardiovascular: Regular rate, Normal S1, Normal S2 Lungs: Other (rhonchi) Abdomen: Bowel sounds, Soft Extremities: Edema, no Clubbing, no Cyanosis Neurological: Normal gait, Other (bed ridden) Skin: no Rash Psych/Mental Status: Other (dementia) - Procedures Procedures: Procedures Procedure Code Date EGD PLACE GASTROSTOMY TUBE 90675 09/08/17 INSERTION OF FEEDING DEVICE INTO STOMACH, PERC APPROACH [id number] 09/08/17 Assessment/Plan - Assessment Assessment: 87 YO MALE WITH DYSPHAGIA S/P PEG SOPHIE TUBE FEEDS 1.CONT TUBE FEEDS 2.CONT SUPP CARE
--- NOTE | 2017-09-21 10:00 | Diagnostic Imaging Report ---
Exam: Pelvic ultrasound HISTORY: Prostate hypertroph Findings. Real-time ultrasound examination prostate gland performed multiple planes the study demonstrates hypertrophy of prostate gland measuring 6.3 x 5.4 x 4.8 cm diameter with the examination of the urinary bladder floor. There is evidence for 1.2 cm calcification within the prostate gland. Eduardo catheter in urinary bladder is noted. IMPRESSION: Enlarged prostate gland with the calcification, clinical correlation recommended Question of invasion of the urinary bladder floor.
--- NOTE | 2017-09-21 17:04 | Progress Notes ---
DATE: 09/21/2017 PROBLEM LIST: 1. Aspiration pneumonia, improving. 2. Persistent leukocytosis. 3. Underlying history of Alzheimer's. SYMPTOMS: The patient is awake, sleepy, periodic, restless, no distress. PHYSICAL EXAMINATION: VITAL SIGNS: T-max 98.3, blood pressure 122/52, saturation is 98. NECK: Veins not visualized. CHEST: Shows diminished air entry with occasional rhonchi. HEART: Regular. ABDOMEN: Soft, nontender. LABORATORY DATA: White count of 16,000, hemoglobin 10.8. Electrolytes are okay. ASSESSMENT: The patient is clinically stable, improving with white count and clinically stable respiratory luciano. PLANS AND SUGGESTIONS: We will go ahead and continue current treatment, etc. Follow through on the CBC tomorrow. JOB# [id number]
[2017-09-21 22:02] VITALS: BP 133/75
--- NOTE | 2017-09-21 23:10 | Infectious Disease Prog Note ---
Infectious Disease Subjective - Review of Systems Service Date: 09/21/17 Subjective: No change, no fever. Infectious Disease Objective - Results Result Diagrams: 09/21/17 06:42 09/21/17 06:42 Recent Labs: Laboratory Last Values WBC 16.2 Th/cmm (4.8-10.8) H 09/21/17 06:42 RBC 3.93 Mil/cmm (3.80-5.80) 09/21/17 06:42 Hgb 11.8 gm/dL (12-16) L 09/21/17 06:42 Hct 34.9 % (41.0-60) L 09/21/17 06:42 MCV 88.7 fl (80-99) 09/21/17 06:42 MCH 30.0 pg (27.0-31.0) 04 06:42 MCHC Differential 33.9 pg (28.0-36.0) 04 06:42 RDW 14.5 % (11.5-20.0) 09/21/17 06:42 Plt Count 257 Th/cmm (150-400) 09/21/17 06:42 MPV 7.9 fl 09/21/17 06:42 Neutrophils % 80.1 % (40.0-80.0) H 09/21/17 06:42 Band Neutrophils % 2 % (0-10) 09/19/17 05:00 Lymphocytes % 10.2 % (20.0-50.0) L 09/21/17 06:42 Monocytes % 8.2 % (2.0-10.0) 09/21/17 06:42 Eosinophils % 1.3 % (0.0-5.0) 09/21/17 06:42 Basophils % 0.2 % (0.0-2.0) 09/21/17 06:42 Neutrophils (Manual) 85 % (40-80) H 09/19/17 05:00 Lymphocytes 10 % (20-50) L 09/19/17 05:00 Monocytes 2 % (2-10) 09/19/17 05:00 Eosinophils 1 % (0-5) 09/19/17 05:00 Platelet Estimate ADEQUATE (NORMAL) 09/18/17 05:40 PT 11.7 SECONDS (9.5-11.5) H 09/11/17 05:58 INR 1.12 (0.5-1.4) 09/11/17 05:58 Specimen Source Arterial 09/11/17 08:20 Sample Site RB 09/11/17 08:20 pH 7.45 (7.35-7.45) 09/11/17 08:20 pCO2 35.0 mmHg (35.0-45.0) 09/11/17 08:20 pO2 66.0 mmHg (80.0-100.0) L 09/11/17 08:20 HCO3 25.3 mEq/L (20.0-26.0) 09/11/17 08:20 Base Excess 0.6 mEq/L (-3.0-3.0) 09/11/17 08:20 O2 Saturation 94.0 % (92.0-100.0) 09/11/17 08:20 Franki Test POSITIVE 09/11/17 08:20 Vent Rate NA 09/11/17 08:20 Inspired O2 21 09/11/17 08:20 Tidal Volume NA 09/11/17 08:20 PEEP NA 09/11/17 08:20 Pressure (ins/psv/peep) NA 09/11/17 08:20 Critical Value SANDEEP BETH 09/11/17 08:20 Sodium 142 mEq/L (136-145) 09/21/17 06:42 Potassium 3.9 mEq/L (3.5-5.1) 09/21/17 06:42 Chloride 110 mEq/L (98-107) H 09/21/17 06:42 Carbon Dioxide 27.5 mEq/L (21.0-31.0) 09/21/17 06:42 Anion Gap 8.4 (7.0-16.0) 09/21/17 06:42 BUN 39 mg/dL (7-25) H 09/21/17 06:42 Creatinine 1.2 mg/dL (0.7-1.3) 09/21/17 06:42 Est GFR ( Amer) TNP 09/21/17 06:42 Est GFR (Non-Af Amer) TNP 09/21/17 06:42 BUN/Creatinine Ratio 32.5 09/21/17 06:42 Glucose 140 mg/dL (70-105) H 09/21/17 06:42 POC Glucose 120 MG/DL (70 - 105) H 09/20/17 06:14 Calcium 8.1 mg/dL (8.6-10.3) L 09/21/17 06:42 Total Bilirubin 0.7 mg/dL (0.3-1.0) 09/20/17 08:05 AST 12 U/L (13-39) L 09/20/17 08:05 ALT 12 U/L (7-52) 09/20/17 08:05 Alkaline Phosphatase 135 U/L (34-104) H 09/20/17 08:05 Troponin I 0.03 ng/mL (0.01-0.05) 09/09/17 10:15 B-Natriuretic Peptide 88.6 pg/mL (5.0-100.0) 09/10/17 05:40 Total Protein 4.6 gm/dL (6.0-8.3) L 09/20/17 08:05 Albumin 2.6 gm/dL (4.2-5.5) L 09/20/17 08:05 Globulin 2.0 gm/dL 09/20/17 08:05 Albumin/Globulin Ratio 1.3 (1.0-1.8) 09/20/17 08:05 Lipase 59 U/L (11-82) 09/19/17 05:00 TSH 0.53 uIU/ml (0.34-5.60) 09/11/17 05:58 Urine Source MANJARREZ PORT 09/19/17 17:00 Urine Color YELLOW 09/19/17 17:00 Urine Clarity SLIGHTLY HAZY (CLEAR) 09/19/17 17:00 Urine pH 7.5 (4.6 - 8.0) 09/19/17 17:00 Ur Specific [place] <= 1.005 (1.005-1.030) 09/19/17 17:00 Urine Protein NEGATIVE mg/dL (NEGATIVE) 09/19/17 17:00 Urine Glucose (UA) NEGATIVE mg/dL (NEGATIVE) 09/19/17 17:00 Urine Ketones NEGATIVE mg/dL (NEGATIVE) 09/19/17 17:00 Urine Blood LARGE (NEGATIVE) H 09/19/17 17:00 Urine Nitrate NEGATIVE (NEGATIVE) 09/19/17 17:00 Urine Bilirubin NEGATIVE (NEGATIVE) 09/19/17 17:00 Urine Urobilinogen 0.2 E.U./dL (0.2 - 1.0) 09/19/17 17:00 Ur Leukocyte Esterase NEGATIVE (NEGATIVE) 09/19/17 17:00 Urine RBC 50-100 /hpf (0-5) H 09/19/17 17:00 Urine WBC 0-2 /hpf (0-5) 09/19/17 17:00 Ur Epithelial Cells RARE /lpf (FEW) 09/19/17 17:00 Urine Bacteria NONE SEEN /hpf (NONE SEEN) 09/19/17 17:00 Helicobacter pylori Ab NEGATIVE (NEGATIVE) 09/11/17 09:50 - Physical Exam Vitals and I&O: Vital Signs Temp 98.3 F 09/21/17 19:00 Pulse 82 09/21/17 19:29 Resp 18 09/21/17 19:29 BP 133/75 09/21/17 22:02 Pulse Ox 99 09/21/17 19:29 Intake & Output 09/21/17 09/21/17 09/22/17 06:59 18:59 06:59 Intake Total 783 143 9555 Output Total 1000 2200 Balance -900 350 -1140 Weight (lbs) 84.141 kg 83.915 kg Intake: Intake, IV Amount 100 350 Piperacillin Sodium/ 100 50 Tazobact 2.25 gm In Sodium Chloride 0.9% 50 ml @ 100 mls/hr IV Q6HR ANG Rx#:[id number] metroNIDAZOLE 500mg/NS 300 100mL 500 mg In 100 ml @ 100 mls/hr IV Q8H [facility] Rx# :[id number] Tube Feeding 760 Other 300 Output: Urine 1000 2200 Other: # Voids 3 # Bowel Movements 0 2 Stool Characteristics Liquid Soft Liquid Weight Source Bedscale Bedscale Active Medications: Current Medications Acetaminophen (Tylenol) 650 mg GT Q4H PRN PRN Reason: Mild pain, temp above 100 Stop: 11/07/17 22:07 Last Admin: 09/21/17 00:22 Dose: 650 mg Al Hydrox/Mg Hydrox/Simethicone (Maalox) 30 ml GT Q4HR PRN PRN Reason: GI distress Stop: 11/07/17 22:12 Albuterol/Ipratropium (Duoneb Neb) 3 ml HHN Q4H PRN PRN Reason: Wheezing Stop: 11/07/17 19:41 Last Admin: 09/09/17 07:34 Dose: 3 ml Albuterol/Ipratropium (Duoneb Neb) 3 ml HHN [id number] [facility] Stop: 11/09/17 14:59 Last Admin: 09/21/17 19:27 Dose: 3 ml Amlodipine Besylate (Norvasc) 5 mg GT DAILY ANG Stop: 11/12/17 20:44 Last Admin: 09/21/17 08:26 Dose: Not Given Ascorbic Acid (Vitamin C) 500 mg GT DAILY ANG Stop: 11/12/17 20:45 Last Admin: 09/21/17 08:25 Dose: 500 mg Bisacodyl (Dulcolax 10 Mg Supp) 10 mg RC DAILY PRN PRN Reason: Constipation Stop: 11/17/17 23:01 Budesonide (Pulmicort) 0.5 mg HHN BIDRT ANG Stop: 11/09/17 18:59 Last Admin: 09/21/17 19:27 Dose: 0.5 mg Docusate Sodium (Colace) 100 mg PO DAILY ANG Stop: 11/17/17 08:59 Last Admin: 09/21/17 08:25 Dose: 100 mg Donepezil HCl (Aricept) 10 mg GT HS ANG Stop: 11/12/17 20:48 Last Admin: 09/21/17 20:55 Dose: 10 mg Dextrose/Sodium Chloride (D5-0.45ns) 1,000 mls @ 50 mls/hr IV .Q20H ANG Stop: 11/09/17 08:14 Last Admin: 09/20/17 04:02 Dose: 50 mls/hr Metronidazole (Flagyl) 500 mg in 100 mls @ 100 mls/hr IV Q8H ANG Stop: 11/16/17 07:59 Last Infusion: 09/21/17 17:30 Dose: Infused Piperacillin Sod/Tazobactam (Sod 2.25 gm/ Sodium Chloride) 50 mls @ 100 mls/hr IV Q6HR ANG Stop: 11/18/17 11:59 Last Admin: 09/21/17 19:00 Dose: 100 mls/hr Lactobacillus Rhamnosus (Culturelle 15b) 1 each GT DAILY ANG Stop: 11/14/17 08:59 Last Admin: 09/21/17 08:25 Dose: 1 each Latanoprost (Xalatan 0.005% Ophth Soln) 1 drop EACH EYE HS ANG Stop: 11/08/17 20:59 Last Admin: 09/21/17 21:11 Dose: Not Given Lorazepam (Ativan) 1 mg GT Q6HR PRN; Protocol PRN Reason: Agitation Stop: 11/19/17 06:22 Last Admin: 09/20/17 17:49 Dose: 1 mg Losartan Potassium (Cozaar) 50 mg GT DAILY ANG Stop: 11/12/17 20:46 Last Admin: 09/21/17 08:26 Dose: Not Given Magnesium Hydroxide (Milk Of Magnesia) 30 ml PO HS PRN PRN Reason: Constipation Stop: 11/07/17 22:20 Last Admin: 09/17/17 09:31 Dose: 30 ml Memantine (Namenda) 5 mg GT BID ANG Stop: 11/14/17 16:59 Last Admin: 09/21/17 16:26 Dose: 5 mg Mineral Oil (Mineral Oil 30 Ml) 30 ml GT TID ANG Stop: 11/18/17 13:59 Last Admin: 09/21/17 20:55 Dose: 30 ml Miscellaneous (Probiotic Screen) 1 ea MC PRN PRN PRN Reason: PROTOCOL Stop: 11/14/17 08:44 Miscellaneous (Zosyn Iv Per Pharmacy) 1 ea PRN PRN PRN Reason: PROTOCOL Stop: 11/14/17 09:53 Multivitamins/Vitamin C (Theragran) 1 tab GT DAILY ANG Stop: 11/12/17 20:54 Last Admin: 09/21/17 08:25 Dose: 1 tab Olanzapine (Zyprexa) 5 mg GT HS ANG PRN Reason: Protocol Stop: 11/12/17 20:54 Last Admin: 09/21/17 20:55 Dose: 5 mg Olanzapine (Zyprexa) 2.5 mg GT DAILY ANG PRN Reason: Protocol Stop: 11/12/17 20:55 Last Admin: 09/21/17 08:28 Dose: 2.5 mg Sodium Phosphate (Fleet Enema) 135 ml RC DAILY PRN PRN Reason: Constipation Stop: 11/17/17 23:02 Tamsulosin HCl (Flomax) 0.4 mg GT HS ANG Stop: 11/12/17 20:55 Last Admin: 09/21/17 20:58 Dose: 0.4 mg Zolpidem Tartrate (Ambien) 5 mg GT HS PRN PRN Reason: Insomnia Stop: 11/07/17 22:26 Last Admin: 09/14/17 01:16 Dose: 5 mg General: no acute distress, well developed, well nourished HEENT: atraumatic, normocephalic, PERRLA, EOMI, moist mucous membrane Neck: supple, no thyromegaly, no lymphadenopathy, no rigid Cardiovascular: S1S2, regular, no systolic murmur, no thrills Lungs: clear to auscultation bilaterally, clear to percussion Abdomen: soft, bowel sounds, no tender, no distended Extremities: no cyanosis, no clubbing, no lines Neurological: awake, alert, oriented - Procedures Procedures: Procedures Procedure Code Date EGD PLACE GASTROSTOMY TUBE 77457 09/08/17 INSERTION OF FEEDING DEVICE INTO STOMACH, PERC APPROACH [id number] 09/08/17 Infectious Disease Assmt/Plan - Assessment Assessment: 1. Pneumonia. 2. Dementia. 3. Psychosis. 4. Anemia. 5. Benign prostatic hypertrophy. 6. Hypertension. 7. Glaucoma. 8. Prerenal azotemia. 9. Leukocytosis. - Plan Plan: Continue zosyn. and flagyl. may Change zosyn to levaquin 250 mg po daily for 7 days with flagyl 500mg po bid ( 7days). Nutritional Asmnt/Malnutr-PDOC - Dietary Evaluation Malnutrition Findings (Please click <Entered> for more info): Nutritional Asmnt/Malnutrition Start: 09/10/17 18: 01 Text: Status: Complete Freq: Document 09/10/17 18:01 [facility] (Rec: 09/10/17 18:12 [facility] [id number]) Nutritional Asmnt/Malnutrition Patient General Information Nutritional Screening High Risk Diagnosis PNA Pertinent Medical Hx/Surgical Hx PNA Subjective Information Pt seen sleeping at time of visit. Per nurse, pt failed swallow eval this morning. ST recommended strict NPO. may order PEG placement tommorrow . Current Diet Order/ Nutrition Support NPO Pertinent Medications vit C, D5-0.45ns, levaquin, theragran Pertinent Labs 09/10 BUN 32 Nutritional Hx/Data Height 1.73 m Height (Calculated Centimeters) 172.7 Current Weight (lbs) 70.307 kg Weight (Calculated Kilograms) 70.3 Weight (Calculated Grams) 89383.8 [place] Body Weight 154 Body Mass Index (BMI) 23.6 Weight Status Approriate GI Symptoms GI Symptoms None Last BM 09/08 Difficult in: Swallowing Skin Integrity/Comment: reddened to lower back scabs on both feet Estimated Nutritional Goals BEE in Kcals: Using Current wt Calories/Kcals/Kg 23-27 Kcals Calculated 9495-8400 Protein: Using Current wt Protein g/k-1.2 Protein Calculated 63-74 Fluid: ml 1610-1890ml (1ml/kcal) Nutritional Problem 1. Problem Problem inadequate energy intake Etiology pt failed swallow eval Signs/Symptoms: pt on NPO and need alternative nutrition route Intervention/Recommendation Comments 1. Monitor NPO status. 2. If TF needed, recommend initiating Fibersource HN at 20ml/hr for first 24hr, increase 10ml/hr q12hr to goal rate of 55ml/hr continuous. It provides 1584kcal, 71g protein, 1069ml free water, meeting 100% of nutritional needs. 3. Monitor TF rate, tolerance, wt weekly, skin integrity and labs 4. F/U as high risk in 2-3 days, 09/12-09/13 Expected Outcomes/Goals Expected Outcomes/Goals 1. Pt to meet at least 75% of nutritional needs via nutrition support with tolerance 2. Wt stability, skin to remain intact, labs to approach WNL.
[2017-09-22] MEDS: Piperacillin/Tazobact 2.25 gm in 0.9% NS 50 ML IV SCH ×2 (00:20→05:39)
[2017-09-22] MEDS: metroNIDAZOLE 500mg/NS 100mL 500 MG/100 ML BAG IV SCH ×3 (01:01→16:30)
[2017-09-22 06:10] LABS: % BASOPHILS 0.1 % (0.0-2.0); % EOSINOPHILS 1.8 % (0.0-5.0); % LYMPHOCYTES 12.1 % (20.0-50.0); % MONOCYTES 7.3 % (2.0-10.0); % NEUTROPHILS 78.7 % (40.0-80.0); EOSINOPHILE ABSOLUTE 0.3 Th/cmm (0.1-0.4); HEMATOCRIT 35.6 % (41.0-60); HEMOGLOBIN 12.1 gm/dL (12-16); LYMPHOCYTE ABSOLUTE 1.9 Th/cmm (1.5-3.0); MEAN CELL VOLUME 88.5 fl (80-99); MEAN CORPUSCULAR HGB CONC 33.9 pg (28.0-36.0); MEAN PLATELET VOLUME 7.9 fl; MONOCYTE ABSOLUTE 1.2 Th/cmm (0.3-1.0); NEUTROPHILE ABSOLUTE 12.4 Th/cmm (1.8-8.0); PLATELET COUNT 297 Th/cmm (150-400); RED BLOOD COUNT 4.02 Mil/cmm (3.80-5.80); RED CELL DISTRIBUTION WIDTH 14.8 % (11.5-20.0)
[2017-09-22 06:23] LABS: WHITE BLOOD COUNT 15.8 Th/cmm (4.8-10.8)
[2017-09-22 06:30] LABS: ANION GAP 8.5 (7.0-16.0); BUN - UREA NITROGEN 26 mg/dL (7-25); CALCIUM SERUM 8.5 mg/dL (8.6-10.3); CARBON DIOXIDE 26.8 mEq/L (21.0-31.0); CHLORIDE 111 mEq/L (98-107); CREATININE - SERUM 0.8 mg/dL (0.7-1.3); GLUCOSE 99 mg/dL (70-105); POTASSIUM SERUM 4.3 mEq/L (3.5-5.1); SODIUM SERUM 142 mEq/L (136-145)
[2017-09-22] MEDS: Albuterol/Ipratropium Neb 3 ML AERS HHN SCH ×4 (07:07→19:13)
[2017-09-22] MEDS: Albuterol/Ipratropium Neb 3 ML AERS HHN PRN (07:07)
[2017-09-22] MEDS: Budesonide 0.5 Mg/2 mL Ud HHN SCH ×2 (07:09→19:13)
--- NOTE | 2017-09-22 08:16 | General Progress Note ---
Subjective - Review of Systems Service Date: 09/22/17 Subjective: Patient was seen and examined. no acute distress. WBC's improved. Objective - Results Result Diagrams: 09/22/17 05:38 09/22/17 05:38 Recent Labs: Laboratory Last Values WBC 15.8 Th/cmm (4.8-10.8) H 09/22/17 05:38 RBC 4.02 Mil/cmm (3.80-5.80) 09/22/17 05:38 Hgb 12.1 gm/dL (12-16) 09/22/17 05:38 Hct 35.6 % (41.0-60) L 09/22/17 05:38 MCV 88.5 fl (80-99) 09/22/17 05:38 MCH 30.0 pg (27.0-31.0) 09/22/17 05:38 MCHC Differential 33.9 pg (28.0-36.0) 09/22/17 05:38 RDW 14.8 % (11.5-20.0) 09/22/17 05:38 Plt Count 297 Th/cmm (150-400) 09/22/17 05:38 MPV 7.9 fl 09/22/17 05:38 Neutrophils % 78.7 % (40.0-80.0) 09/22/17 05:38 Band Neutrophils % 2 % (0-10) 09/19/17 05:00 Lymphocytes % 12.1 % (20.0-50.0) L 09/22/17 05:38 Monocytes % 7.3 % (2.0-10.0) 09/22/17 05:38 Eosinophils % 1.8 % (0.0-5.0) 09/22/17 05:38 Basophils % 0.1 % (0.0-2.0) 09/22/17 05:38 Neutrophils (Manual) 85 % (40-80) H 09/19/17 05:00 Lymphocytes 10 % (20-50) L 09/19/17 05:00 Monocytes 2 % (2-10) 09/19/17 05:00 Eosinophils 1 % (0-5) 09/19/17 05:00 Platelet Estimate ADEQUATE (NORMAL) 09/18/17 05:40 PT 11.7 SECONDS (9.5-11.5) H 09/11/17 05:58 INR 1.12 (0.5-1.4) 09/11/17 05:58 Specimen Source Arterial 09/11/17 08:20 Sample Site RB 09/11/17 08:20 pH 7.45 (7.35-7.45) 09/11/17 08:20 pCO2 35.0 mmHg (35.0-45.0) 09/11/17 08:20 pO2 66.0 mmHg (80.0-100.0) L 09/11/17 08:20 HCO3 25.3 mEq/L (20.0-26.0) 09/11/17 08:20 Base Excess 0.6 mEq/L (-3.0-3.0) 09/11/17 08:20 O2 Saturation 94.0 % (92.0-100.0) 09/11/17 08:20 Franki Test POSITIVE 09/11/17 08:20 Vent Rate NA 09/11/17 08:20 Inspired O2 21 09/11/17 08:20 Tidal Volume NA 09/11/17 08:20 PEEP NA 09/11/17 08:20 Pressure (ins/psv/peep) NA 09/11/17 08:20 Critical Value SANDEEP BETH 09/11/17 08:20 Sodium 142 mEq/L (136-145) 09/22/17 05:38 Potassium 4.3 mEq/L (3.5-5.1) 09/22/17 05:38 Chloride 111 mEq/L (98-107) H 09/22/17 05:38 Carbon Dioxide 26.8 mEq/L (21.0-31.0) 09/22/17 05:38 Anion Gap 8.5 (7.0-16.0) 09/22/17 05:38 BUN 26 mg/dL (7-25) H 09/22/17 05:38 Creatinine 0.8 mg/dL (0.7-1.3) 09/22/17 05:38 Est GFR ( Amer) TNP 09/22/17 05:38 Est GFR (Non-Af Amer) TNP 09/22/17 05:38 BUN/Creatinine Ratio 32.5 09/22/17 05:38 Glucose 99 mg/dL (70-105) 09/22/17 05:38 POC Glucose 120 MG/DL (70 - 105) H 09/20/17 06:14 Calcium 8.5 mg/dL (8.6-10.3) L 09/22/17 05:38 Total Bilirubin 0.7 mg/dL (0.3-1.0) 09/20/17 08:05 AST 12 U/L (13-39) L 09/20/17 08:05 ALT 12 U/L (7-52) 09/20/17 08:05 Alkaline Phosphatase 135 U/L (34-104) H 09/20/17 08:05 Troponin I 0.03 ng/mL (0.01-0.05) 09/09/17 10:15 B-Natriuretic Peptide 88.6 pg/mL (5.0-100.0) 09/10/17 05:40 Total Protein 4.6 gm/dL (6.0-8.3) L 09/20/17 08:05 Albumin 2.6 gm/dL (4.2-5.5) L 09/20/17 08:05 Globulin 2.0 gm/dL 09/20/17 08:05 Albumin/Globulin Ratio 1.3 (1.0-1.8) 09/20/17 08:05 Lipase 59 U/L (11-82) 09/19/17 05:00 TSH 0.53 uIU/ml (0.34-5.60) 09/11/17 05:58 Urine Source MANJARREZ PORT 09/19/17 17:00 Urine Color YELLOW 09/19/17 17:00 Urine Clarity SLIGHTLY HAZY (CLEAR) 09/19/17 17:00 Urine pH 7.5 (4.6 - 8.0) 09/19/17 17:00 Ur Specific [place] <= 1.005 (1.005-1.030) 09/19/17 17:00 Urine Protein NEGATIVE mg/dL (NEGATIVE) 09/19/17 17:00 Urine Glucose (UA) NEGATIVE mg/dL (NEGATIVE) 09/19/17 17:00 Urine Ketones NEGATIVE mg/dL (NEGATIVE) 09/19/17 17:00 Urine Blood LARGE (NEGATIVE) H 09/19/17 17:00 Urine Nitrate NEGATIVE (NEGATIVE) 09/19/17 17:00 Urine Bilirubin NEGATIVE (NEGATIVE) 09/19/17 17:00 Urine Urobilinogen 0.2 E.U./dL (0.2 - 1.0) 09/19/17 17:00 Ur Leukocyte Esterase NEGATIVE (NEGATIVE) 09/19/17 17:00 Urine RBC 50-100 /hpf (0-5) H 09/19/17 17:00 Urine WBC 0-2 /hpf (0-5) 09/19/17 17:00 Ur Epithelial Cells RARE /lpf (FEW) 09/19/17 17:00 Urine Bacteria NONE SEEN /hpf (NONE SEEN) 09/19/17 17:00 Helicobacter pylori Ab NEGATIVE (NEGATIVE) 09/11/17 09:50 - Physical Exam Vitals and I&O: Vital Signs Temp 97.0 F 09/22/17 07:33 Pulse 64 09/22/17 07:33 Resp 18 09/22/17 07:33 BP 125/69 09/22/17 07:33 Pulse Ox 97 09/22/17 07:33 Intake & Output 09/21/17 09/22/17 09/22/17 18:59 06:59 18:59 Intake Total 350 1160 Output Total 2200 Balance 350 -1040 Weight (lbs) 62.596 kg Intake: Intake, IV Amount 350 100 Piperacillin Sodium/ 50 100 Tazobact 2.25 gm In Sodium Chloride 0.9% 50 ml @ 100 mls/hr IV Q6HR ANG Rx#:[id number] metroNIDAZOLE 500mg/NS 300 100mL 500 mg In 100 ml @ 100 mls/hr IV Q8H ANG Rx# :[id number] Tube Feeding 760 Other 300 Output: Urine 2200 Other: # Bowel Movements 2 Stool Characteristics Soft Liquid Weight Source Bedscale Active Medications: Current Medications Acetaminophen (Tylenol) 650 mg GT Q4H PRN PRN Reason: Mild pain, temp above 100 Stop: 11/07/17 22:07 Last Admin: 09/21/17 00:22 Dose: 650 mg Al Hydrox/Mg Hydrox/Simethicone (Maalox) 30 ml GT Q4HR PRN PRN Reason: GI distress Stop: 11/07/17 22:12 Albuterol/Ipratropium (Duoneb Neb) 3 ml HHN Q4H PRN PRN Reason: Wheezing Stop: 11/07/17 19:41 Last Admin: 09/09/17 07:34 Dose: 3 ml Albuterol/Ipratropium (Duoneb Neb) 3 ml HHN R0UUPYS ANG Stop: 11/09/17 14:59 Last Admin: 09/22/17 07:07 Dose: 3 ml Amlodipine Besylate (Norvasc) 5 mg GT DAILY ANG Stop: 11/12/17 20:44 Last Admin: 09/21/17 08:26 Dose: Not Given Ascorbic Acid (Vitamin C) 500 mg GT DAILY ANG Stop: 11/12/17 20:45 Last Admin: 09/21/17 08:25 Dose: 500 mg Bisacodyl (Dulcolax 10 Mg Supp) 10 mg RC DAILY PRN PRN Reason: Constipation Stop: 11/17/17 23:01 Budesonide (Pulmicort) 0.5 mg HHN BIDRT ANG Stop: 11/09/17 18:59 Last Admin: 09/22/17 07:09 Dose: 0.5 mg Docusate Sodium (Colace) 100 mg PO DAILY ANG Stop: 11/17/17 08:59 Last Admin: 09/21/17 08:25 Dose: 100 mg Donepezil HCl (Aricept) 10 mg GT HS ANG Stop: 11/12/17 20:48 Last Admin: 09/21/17 20:55 Dose: 10 mg Dextrose/Sodium Chloride (D5-0.45ns) 1,000 mls @ 50 mls/hr IV .Q20H NAG Stop: 11/09/17 08:14 Last Admin: 09/20/17 04:02 Dose: 50 mls/hr Metronidazole (Flagyl) 500 mg in 100 mls @ 100 mls/hr IV Q8H ANG Stop: 11/16/17 07:59 Last Admin: 09/22/17 01:01 Dose: 100 mls/hr Piperacillin Sod/Tazobactam (Sod 2.25 gm/ Sodium Chloride) 50 mls @ 100 mls/hr IV Q6HR ANG Stop: 11/18/17 11:59 Last Admin: 09/22/17 05:39 Dose: 100 mls/hr Lactobacillus Rhamnosus (Culturelle 15b) 1 each GT DAILY ANG Stop: 11/14/17 08:59 Last Admin: 09/21/17 08:25 Dose: 1 each Latanoprost (Xalatan 0.005% [facility] Soln) 1 drop EACH EYE HS ANG Stop: 11/08/17 20:59 Last Admin: 09/21/17 21:11 Dose: Not Given Lorazepam (Ativan) 1 mg GT Q6HR PRN; Protocol PRN Reason: Agitation Stop: 11/19/17 06:22 Last Admin: 09/22/17 04:57 Dose: 1 mg Losartan Potassium (Cozaar) 50 mg GT DAILY ANG Stop: 11/12/17 20:46 Last Admin: 09/21/17 08:26 Dose: Not Given Magnesium Hydroxide (Milk Of Magnesia) 30 ml PO HS PRN PRN Reason: Constipation Stop: 11/07/17 22:20 Last Admin: 09/17/17 09:31 Dose: 30 ml Memantine (Namenda) 5 mg GT BID ANG Stop: 11/14/17 16:59 Last Admin: 09/21/17 16:26 Dose: 5 mg Mineral Oil (Mineral Oil 30 Ml) 30 ml GT TID ANG Stop: 11/18/17 13:59 Last Admin: 09/21/17 20:55 Dose: 30 ml Miscellaneous (Probiotic Screen) 1 ea PRN PRN PRN Reason: PROTOCOL Stop: 11/14/17 08:44 Miscellaneous (Zosyn Iv Per Pharmacy) 1 ea PRN PRN PRN Reason: PROTOCOL Stop: 11/14/17 09:53 Multivitamins/Vitamin C (Theragran) 1 tab GT DAILY ANG Stop: 11/12/17 20:54 Last Admin: 09/21/17 08:25 Dose: 1 tab Olanzapine (Zyprexa) 5 mg GT HS ANG PRN Reason: Protocol Stop: 11/12/17 20:54 Last Admin: 09/21/17 20:55 Dose: 5 mg Olanzapine (Zyprexa) 2.5 mg GT DAILY ANG PRN Reason: Protocol Stop: 11/12/17 20:55 Last Admin: 09/21/17 08:28 Dose: 2.5 mg Sodium Phosphate (Fleet Enema) 135 ml RC DAILY PRN PRN Reason: Constipation Stop: 11/17/17 23:02 Tamsulosin HCl (Flomax) 0.4 mg GT HS ANG Stop: 11/12/17 20:55 Last Admin: 09/21/17 20:58 Dose: 0.4 mg Zolpidem Tartrate (Ambien) 5 mg GT HS PRN PRN Reason: Insomnia Stop: 11/07/17 22:26 Last Admin: 09/14/17 01:16 Dose: 5 mg General: Alert HEENT: Atraumatic, PERRLA, EOMI Cardiovascular: Regular rate, Normal S1, Normal S2 Lungs: Other (rhonchi) Abdomen: Bowel sounds, Soft Extremities: Edema, no Clubbing, no Cyanosis Neurological: Normal gait, Other (bed ridden) Skin: no Rash Psych/Mental Status: Other (dementia) - Procedures Procedures: Procedures Procedure Code Date EGD PLACE GASTROSTOMY TUBE 34466 09/08/17 INSERTION OF FEEDING DEVICE INTO STOMACH, PERC APPROACH [id number] 09/08/17 Assessment/Plan - Assessment Assessment: leukocytosis improving pneumonia vs aspiration PNA htn bph glaucoma anemia dementia psychosis prerenal azotemia improving. s/p g-tube placement leukocytosis possible secondary to steroid use. - Plan Plan: repeat cbc pulmonary consult id consult psyche consult Zosyn IV per pharmacy Flagyl 500mg IV q8 gentle hydration gtube feeing per dietary Chest xray this AM add KUB UA neg DC solumedrol Hem/onc discharge planning Nutritional Asmnt/Malnutr-PDOC - Dietary Evaluation Malnutrition Findings (Please click <Entered> for more info): Nutritional Asmnt/Malnutrition Start: 09/10/17 18: 01 Text: Status: Complete Freq: Document 09/10/17 18:01 L[facility]EN (Rec: 09/10/17 18:12 [id number]) Nutritional Asmnt/Malnutrition Patient General Information Nutritional Screening High Risk Diagnosis PNA Pertinent Medical Hx/Surgical Hx PNA Subjective Information Pt seen sleeping at time of visit. Per nurse, pt failed swallow eval this morning. ST recommended strict NPO. MD may order PEG placement tommorrow . Current Diet Order/ Nutrition Support NPO Pertinent Medications vit C, D5-0.45ns, levaquin, theragran Pertinent Labs 09/10 BUN 32 Nutritional Hx/Data Height 1.73 m Height (Calculated Centimeters) 172.7 Current Weight (lbs) 70.307 kg Weight (Calculated Kilograms) 70.3 Weight (Calculated Grams) 03536.8 [place] Body Weight 154 Body Mass Index (BMI) 23.6 Weight Status Approriate GI Symptoms GI Symptoms None Last BM 09/08 Difficult in: Swallowing Skin Integrity/Comment: reddened to lower back scabs on both feet Estimated Nutritional Goals BEE in Kcals: Using Current wt Calories/Kcals/Kg 23-27 Kcals Calculated 1096-8027 Protein: Using Current wt Protein g/k-1.2 Protein Calculated 63-74 Fluid: ml 1610-1890ml (1ml/kcal) Nutritional Problem 1. Problem Problem inadequate energy intake Etiology pt failed swallow eval Signs/Symptoms: pt on NPO and need alternative nutrition route Intervention/Recommendation Comments 1. Monitor NPO status. 2. If TF needed, recommend initiating Fibersource HN at 20ml/hr for first 24hr, increase 10ml/hr q12hr to goal rate of 55ml/hr continuous. It provides 1584kcal, 71g protein, 1069ml free water, meeting 100% of nutritional needs. 3. Monitor TF rate, tolerance, wt weekly, skin integrity and labs 4. F/U as high risk in 2-3 days, 09/12-09/13 Expected Outcomes/Goals Expected Outcomes/Goals 1. Pt to meet at least 75% of nutritional needs via nutrition support with tolerance 2. Wt stability, skin to remain intact, labs to approach WNL.
[2017-09-22] MEDS: Lactobacillus Rhamnosus GG 15 Billion CFU CAP.SPRINK GT SCH (08:43)
[2017-09-22] MEDS: Multivitamin Tab GT SCH (08:44)
--- NOTE | 2017-09-22 09:55 | General Progress Note ---
Subjective - Review of Systems Service Date: 09/22/17 Subjective: not in distress. non communicative Objective - Results Result Diagrams: 09/22/17 05:38 09/22/17 05:38 Recent Labs: Laboratory Last Values WBC 15.8 Th/cmm (4.8-10.8) H 09/22/17 05:38 RBC 4.02 Mil/cmm (3.80-5.80) 09/22/17 05:38 Hgb 12.1 gm/dL (12-16) 09/22/17 05:38 Hct 35.6 % (41.0-60) L 09/22/17 05:38 MCV 88.5 fl (80-99) 09/22/17 05:38 MCH 30.0 pg (27.0-31.0) 09/22/17 05:38 MCHC Differential 33.9 pg (28.0-36.0) 09/22/17 05:38 RDW 14.8 % (11.5-20.0) 09/22/17 05:38 Plt Count 297 Th/cmm (150-400) 09/22/17 05:38 MPV 7.9 fl 09/22/17 05:38 Neutrophils % 78.7 % (40.0-80.0) 09/22/17 05:38 Band Neutrophils % 2 % (0-10) 09/19/17 05:00 Lymphocytes % 12.1 % (20.0-50.0) L 09/22/17 05:38 Monocytes % 7.3 % (2.0-10.0) 09/22/17 05:38 Eosinophils % 1.8 % (0.0-5.0) 09/22/17 05:38 Basophils % 0.1 % (0.0-2.0) 09/22/17 05:38 Neutrophils (Manual) 85 % (40-80) H 09/19/17 05:00 Lymphocytes 10 % (20-50) L 09/19/17 05:00 Monocytes 2 % (2-10) 09/19/17 05:00 Eosinophils 1 % (0-5) 09/19/17 05:00 Platelet Estimate ADEQUATE (NORMAL) 09/18/17 05:40 PT 11.7 SECONDS (9.5-11.5) H 09/11/17 05:58 INR 1.12 (0.5-1.4) 09/11/17 05:58 Specimen Source Arterial 09/11/17 08:20 Sample Site RB 09/11/17 08:20 pH 7.45 (7.35-7.45) 09/11/17 08:20 pCO2 35.0 mmHg (35.0-45.0) 09/11/17 08:20 pO2 66.0 mmHg (80.0-100.0) L 09/11/17 08:20 HCO3 25.3 mEq/L (20.0-26.0) 09/11/17 08:20 Base Excess 0.6 mEq/L (-3.0-3.0) 09/11/17 08:20 O2 Saturation 94.0 % (92.0-100.0) 09/11/17 08:20 Franki Test POSITIVE 09/11/17 08:20 Vent Rate NA 09/11/17 08:20 Inspired O2 21 09/11/17 08:20 Tidal Volume NA 09/11/17 08:20 PEEP NA 09/11/17 08:20 Pressure (ins/psv/peep) NA 09/11/17 08:20 Critical Value SANDEEP CAMPOS 09/11/17 08:20 Sodium 142 mEq/L (136-145) 09/22/17 05:38 Potassium 4.3 mEq/L (3.5-5.1) 09/22/17 05:38 Chloride 111 mEq/L (98-107) H 09/22/17 05:38 Carbon Dioxide 26.8 mEq/L (21.0-31.0) 09/22/17 05:38 Anion Gap 8.5 (7.0-16.0) 09/22/17 05:38 BUN 26 mg/dL (7-25) H 09/22/17 05:38 Creatinine 0.8 mg/dL (0.7-1.3) 09/22/17 05:38 Est GFR ( Amer) TNP 09/22/17 05:38 Est GFR (Non-Af Amer) TNP 09/22/17 05:38 BUN/Creatinine Ratio 32.5 09/22/17 05:38 Glucose 99 mg/dL (70-105) 09/22/17 05:38 POC Glucose 120 MG/DL (70 - 105) H 09/20/17 06:14 Calcium 8.5 mg/dL (8.6-10.3) L 09/22/17 05:38 Total Bilirubin 0.7 mg/dL (0.3-1.0) 09/20/17 08:05 AST 12 U/L (13-39) L 09/20/17 08:05 ALT 12 U/L (7-52) 09/20/17 08:05 Alkaline Phosphatase 135 U/L (34-104) H 09/20/17 08:05 Troponin I 0.03 ng/mL (0.01-0.05) 09/09/17 10:15 B-Natriuretic Peptide 88.6 pg/mL (5.0-100.0) 09/10/17 05:40 Total Protein 4.6 gm/dL (6.0-8.3) L 09/20/17 08:05 Albumin 2.6 gm/dL (4.2-5.5) L 09/20/17 08:05 Globulin 2.0 gm/dL 09/20/17 08:05 Albumin/Globulin Ratio 1.3 (1.0-1.8) 09/20/17 08:05 Lipase 59 U/L (11-82) 09/19/17 05:00 TSH 0.53 uIU/ml (0.34-5.60) 09/11/17 05:58 Urine Source MANJARREZ PORT 09/19/17 17:00 Urine Color YELLOW 09/19/17 17:00 Urine Clarity SLIGHTLY HAZY (CLEAR) 09/19/17 17:00 Urine pH 7.5 (4.6 - 8.0) 09/19/17 17:00 Ur Specific [employer] <= 1.005 (1.005-1.030) 09/19/17 17:00 Urine Protein NEGATIVE mg/dL (NEGATIVE) 09/19/17 17:00 Urine Glucose (UA) NEGATIVE mg/dL (NEGATIVE) 09/19/17 17:00 Urine Ketones NEGATIVE mg/dL (NEGATIVE) 09/19/17 17:00 Urine Blood LARGE (NEGATIVE) H 09/19/17 17:00 Urine Nitrate NEGATIVE (NEGATIVE) 09/19/17 17:00 Urine Bilirubin NEGATIVE (NEGATIVE) 09/19/17 17:00 Urine Urobilinogen 0.2 E.U./dL (0.2 - 1.0) 09/19/17 17:00 Ur Leukocyte Esterase NEGATIVE (NEGATIVE) 09/19/17 17:00 Urine RBC 50-100 /hpf (0-5) H 09/19/17 17:00 Urine WBC 0-2 /hpf (0-5) 09/19/17 17:00 Ur Epithelial Cells RARE /lpf (FEW) 09/19/17 17:00 Urine Bacteria NONE SEEN /hpf (NONE SEEN) 09/19/17 17:00 Helicobacter pylori Ab NEGATIVE (NEGATIVE) 09/11/17 09:50 - Physical Exam Vitals and I&O: Vital Signs Temp 97.0 F 09/22/17 07:33 Pulse 64 09/22/17 08:44 Resp 18 09/22/17 07:33 BP 125/69 09/22/17 08:44 Pulse Ox 97 09/22/17 07:33 Intake & Output 09/21/17 09/22/17 09/22/17 18:59 06:59 18:59 Intake Total 350 1160 100 Output Total 2200 Balance 350 -1040 100 Weight (lbs) 62.596 kg Intake: Intake, IV Amount 350 100 100 Piperacillin Sodium/ 50 100 Tazobact 2.25 gm In Sodium Chloride 0.9% 50 ml @ 100 mls/hr IV Q6HR [facility] Rx#:[id number] metroNIDAZOLE 500mg/NS 300 100 100mL 500 mg In 100 ml @ 100 mls/hr IV Q8H [facility] Rx# :[id number] Tube Feeding 760 Other 300 Output: Urine 2200 Other: # Bowel Movements 2 Stool Characteristics Soft Liquid Weight Source Bedscale Active Medications: Current Medications Acetaminophen (Tylenol) 650 mg GT Q4H PRN PRN Reason: Mild pain, temp above 100 Stop: 11/07/17 22:07 Last Admin: 09/21/17 00:22 Dose: 650 mg Al Hydrox/Mg Hydrox/Simethicone (Maalox) 30 ml GT Q4HR PRN PRN Reason: GI distress Stop: 11/07/17 22:12 Albuterol/Ipratropium (Duoneb Neb) 3 ml HHN Q4H PRN PRN Reason: Wheezing Stop: 11/07/17 19:41 Last Admin: 09/09/17 07:34 Dose: 3 ml Albuterol/Ipratropium (Duoneb Neb) 3 ml HHN [id number] ANG Stop: 11/09/17 14:59 Last Admin: 09/22/17 07:07 Dose: 3 ml Amlodipine Besylate (Norvasc) 5 mg GT DAILY ANG Stop: 11/12/17 20:44 Last Admin: 09/22/17 08:44 Dose: 5 mg Ascorbic Acid (Vitamin C) 500 mg GT DAILY ANG Stop: 11/12/17 20:45 Last Admin: 09/22/17 08:44 Dose: 500 mg Bisacodyl (Dulcolax 10 Mg Supp) 10 mg RC DAILY PRN PRN Reason: Constipation Stop: 11/17/17 23:01 Budesonide (Pulmicort) 0.5 mg HHN BIDRT ANG Stop: 11/09/17 18:59 Last Admin: 09/22/17 07:09 Dose: 0.5 mg Docusate Sodium (Colace) 100 mg PO DAILY ANG Stop: 11/17/17 08:59 Last Admin: 09/22/17 08:44 Dose: 100 mg Donepezil HCl (Aricept) 10 mg GT HS ANG Stop: 11/12/17 20:48 Last Admin: 09/21/17 20:55 Dose: 10 mg Dextrose/Sodium Chloride (D5-0.45ns) 1,000 mls @ 50 mls/hr IV .Q20H ANG Stop: 11/09/17 08:14 Last Admin: 09/20/17 04:02 Dose: 50 mls/hr Metronidazole (Flagyl) 500 mg in 100 mls @ 100 mls/hr IV Q8H ANG Stop: 11/16/17 07:59 Last Admin: 09/22/17 08:45 Dose: 100 mls/hr Piperacillin Sod/Tazobactam (Sod 2.25 gm/ Sodium Chloride) 50 mls @ 100 mls/hr IV Q6HR ANG Stop: 11/18/17 11:59 Last Admin: 09/22/17 05:39 Dose: 100 mls/hr Lactobacillus Rhamnosus (Culturelle 15b) 1 each GT DAILY ANG Stop: 11/14/17 08:59 Last Admin: 09/22/17 08:43 Dose: 1 each Latanoprost (Xalatan 0.005% [facility] Soln) 1 drop EACH EYE HS ANG Stop: 11/08/17 20:59 Last Admin: 09/21/17 21:11 Dose: Not Given Lorazepam (Ativan) 1 mg GT Q6HR PRN; Protocol PRN Reason: Agitation Stop: 11/19/17 06:22 Last Admin: 09/22/17 09:34 Dose: 1 mg Losartan Potassium (Cozaar) 50 mg GT DAILY ANG Stop: 11/12/17 20:46 Last Admin: 09/22/17 08:43 Dose: 50 mg Magnesium Hydroxide (Milk Of Magnesia) 30 ml PO HS PRN PRN Reason: Constipation Stop: 11/07/17 22:20 Last Admin: 09/17/17 09:31 Dose: 30 ml Memantine (Namenda) 5 mg GT BID ANG Stop: 11/14/17 16:59 Last Admin: 09/22/17 08:43 Dose: 5 mg Mineral Oil (Mineral Oil 30 Ml) 30 ml GT TID ANG Stop: 11/18/17 13:59 Last Admin: 09/22/17 08:45 Dose: 30 ml Miscellaneous (Probiotic Screen) 1 ea PRN PRN PRN Reason: PROTOCOL Stop: 11/14/17 08:44 Miscellaneous (Zosyn Iv Per Pharmacy) 1 ea PRN PRN PRN Reason: PROTOCOL Stop: 11/14/17 09:53 Multivitamins/Vitamin C (Theragran) 1 tab GT DAILY ANG Stop: 11/12/17 20:54 Last Admin: 09/22/17 08:44 Dose: 1 tab Olanzapine (Zyprexa) 5 mg GT HS ANG PRN Reason: Protocol Stop: 11/12/17 20:54 Last Admin: 09/21/17 20:55 Dose: 5 mg Olanzapine (Zyprexa) 2.5 mg GT DAILY ANG PRN Reason: Protocol Stop: 11/12/17 20:55 Last Admin: 09/22/17 08:44 Dose: 2.5 mg Sodium Phosphate (Fleet Enema) 135 ml RC DAILY PRN PRN Reason: Constipation Stop: 11/17/17 23:02 Tamsulosin HCl (Flomax) 0.4 mg GT HS ANG Stop: 11/12/17 20:55 Last Admin: 09/21/17 20:58 Dose: 0.4 mg Zolpidem Tartrate (Ambien) 5 mg GT HS PRN PRN Reason: Insomnia Stop: 11/07/17 22:26 Last Admin: 09/14/17 01:16 Dose: 5 mg General: Alert HEENT: Atraumatic, PERRLA, EOMI Cardiovascular: Regular rate, Normal S1, Normal S2 Lungs: Other (rhonchi) Abdomen: Bowel sounds, Soft Extremities: Edema, no Clubbing, no Cyanosis Neurological: Normal gait, Other (bed ridden) Skin: no Rash Psych/Mental Status: Other (dementia) - Procedures Procedures: Procedures Procedure Code Date EGD PLACE GASTROSTOMY TUBE 67896 09/08/17 INSERTION OF FEEDING DEVICE INTO STOMACH, PERC APPROACH [id number] 09/08/17 Assessment/Plan - Assessment Assessment: * Reactive leukocytosis * pneumonia Follow cbc Nutritional Asmnt/Malnutr-PDOC - Dietary Evaluation Malnutrition Findings (Please click <Entered> for more info): Nutritional Asmnt/Malnutrition Start: 09/10/17 18: 01 Text: Status: Complete Freq: Document 09/10/17 18:01 KISHORE (Rec: 09/10/17 18:12 [facility] Nutritional Asmnt/Malnutrition Patient General Information Nutritional Screening High Risk Diagnosis PNA Pertinent Medical Hx/Surgical Hx PNA Subjective Information Pt seen sleeping at time of visit. Per nurse, pt failed swallow eval this morning. ST recommended strict NPO. MD may order PEG placement tommorrow . Current Diet Order/ Nutrition Support NPO Pertinent Medications vit C, D5-0.45ns, levaquin, theragran Pertinent Labs 09/10 BUN 32 Nutritional Hx/Data Height 1.73 m Height (Calculated Centimeters) 172.7 Current Weight (lbs) 70.307 kg Weight (Calculated Kilograms) 70.3 Weight (Calculated Grams) 62042.8 [place] Body Weight 154 Body Mass Index (BMI) 23.6 Weight Status Approriate GI Symptoms GI Symptoms None Last BM 09/08 Difficult in: Swallowing Skin Integrity/Comment: reddened to lower back scabs on both feet Estimated Nutritional Goals BEE in Kcals: Using Current wt Calories/Kcals/Kg 23-27 Kcals Calculated 5684-8991 Protein: Using Current wt Protein g/k-1.2 Protein Calculated 63-74 Fluid: ml 1610-1890ml (1ml/kcal) Nutritional Problem 1. Problem Problem inadequate energy intake Etiology pt failed swallow eval Signs/Symptoms: pt on NPO and need alternative nutrition route Intervention/Recommendation Comments 1. Monitor NPO status. 2. If TF needed, recommend initiating Fibersource HN at 20ml/hr for first 24hr, increase 10ml/hr q12hr to goal rate of 55ml/hr continuous. It provides 1584kcal, 71g protein, 1069ml free water, meeting 100% of nutritional needs. 3. Monitor TF rate, tolerance, wt weekly, skin integrity and labs 4. F/U as high risk in 2-3 days, 09/12-09/13 Expected Outcomes/Goals Expected Outcomes/Goals 1. Pt to meet at least 75% of nutritional needs via nutrition support with tolerance 2. Wt stability, skin to remain intact, labs to approach WNL.
--- NOTE | 2017-09-22 14:44 | Progress Notes ---
DATE: 09/22/2017 PULMONARY PROGRESS NOTE PROBLEM LIST: 1. Aspiration pneumonia, improving. 2. Leukocytosis, improving. 3. Alzheimer. 4. History of dysphagia, currently on a G-tube. SUBJECTIVE: The patient is snoring, no respiratory distress. PHYSICAL EXAMINATION: VITAL SIGNS: T-max 98.3, blood pressure 113/62, saturations 100% on room air. NECK: Veins not visualized. CHEST: Shows diminished air entry, no other adventitious breath sound with occasional upper airway secretory noise. HEART: Regular. ABDOMEN: Soft, nontender. LABORATORY DATA: White count is slightly down 15.8, electrolytes are okay. ASSESSMENT: The patient is gradually and very slowly improving. PLANS AND SUGGESTIONS: We will continue current treatment per ID, watch her leukocytosis, etc and go from there. JOB# [id number]
--- NOTE | 2017-09-22 22:46 | Progress Notes ---
DATE: 09/22/2017 FOLLOWUP CONSULT NOTE Case was discussed with staff of the patient, reviewed records. The patient apparently is medically cleared. He is calm. He is more cooperative, though he is demented, confused, and unable to make safe plan for self-care. The staff was not sure for a test, we will take him back. He is compliant with the medication. He is on a G-tube. No side effects with the medication, no sedation, and no nausea. I will follow up with the patient ____ if he goes there. However, if he goes to another facility, then he needs to follow up with the psychiatrist there. Thank you very much for allowing me to participate in the care of this most interesting gentleman. JOB# [id number]
--- NOTE | 2017-09-24 10:26 | Discharge Summary ---
DATE OF DISCHARGE: 09/22/2017 PRELIMINARY DIAGNOSES: 1. Leukocytosis. 2. Pneumonia. 3. Hypertension. 4. Benign prostatic hypertrophy. 5. Glaucoma. 6. Anemia. 7. Dementia. 8. Psychosis. 9. Prerenal azotemia. DISCHARGE DIAGNOSES: 1. Leukocytosis. 2. Aspiration pneumonia. 3. Hypertension. 4. Dysphagia. 5. Benign prostatic hypertrophy. 6. Glaucoma. 7. Anemia. 8. Dementia. 9. Psychosis. 10. Prerenal azotemia. BRIEF HISTORY OF PRESENT ILLNESS: This is an 87-year-old male who was initially admitted to [facility] for psychosis, was transferred from [facility] to medicine floor for possible pneumonia. The patient had a chest x-ray that revealed bilateral infiltrates and was thus transferred to med/surg for aggressive IV antibiotics and further treatment. HOSPITAL COURSE: The patient had a swallow evaluation, which he failed, was found to have aspiration pneumonia. The patient was seen by GI and a gastrostomy tube was in place. The patient was started on G-tube feeding, which he tolerated well. During his hospitalization, he also was started on IV antibiotics, initially with Levaquin and then added Flagyl. The patient's white count improved during his hospital stay. The patient was seen by Infectious Disease, see dictated report, also seen by Pulmonary. Please see dictated report. The patient was also found to be prerenal azotemia, was given IV hydration, which also improved during his hospital stay. He was subsequently transferred to long-term acute care for further treatment and evaluation. [facility]# [id number]
== END 2017-09-22 20:10 | DRG 177 ==
LOC: MSI 18:05 → UNDOADMIN 18:34 → MSI 18:34 → TELE 09-17 09:44 → MSI 09-22 17:38
PROVIDERS: ADMIT Family Medicine; ATTEND Family Medicine
PROC: 3E0234Z Introduction of Serum, Toxoid and Vaccine into Muscle, Percutaneous Approach (ICD-10-PCS; 2017-09-08)
PROC: 0DH63UZ Insertion of Feeding Device into Stomach, Percutaneous Approach (ICD-10-PCS; principal; 2017-09-11)
PROC: 0DB68ZX Excision of Stomach, Via Natural or Artificial Opening Endoscopic, Diagnostic (ICD-10-PCS; 2017-09-11)
DX: J69.0 Pneumonitis due to inhalation of food and vomit (principal); F02.81 Dementia in other diseases classified elsewhere, unspecified severity, with behavioral disturbance; J96.90 Respiratory failure, unspecified, unspecified whether with hypoxia or hypercapnia; G93.40 Encephalopathy, unspecified; R47.01 Aphasia; N13.30 Unspecified hydronephrosis; R13.10 Dysphagia, unspecified; D64.9 Anemia, unspecified; G30.9 Alzheimer's disease, unspecified; I10 Essential (primary) hypertension; N40.0 Benign prostatic hyperplasia without lower urinary tract symptoms; H40.9 Unspecified glaucoma; K22.5 Diverticulum of esophagus, acquired; R62.7 Adult failure to thrive; N31.9 Neuromuscular dysfunction of bladder, unspecified; J84.10 Pulmonary fibrosis, unspecified; R63.0 Anorexia; R45.87 Impulsiveness; F29 Unspecified psychosis not due to a substance or known physiological condition; R79.89 Other specified abnormal findings of blood chemistry; K29.70 Gastritis, unspecified, without bleeding; K44.9 Diaphragmatic hernia without obstruction or gangrene; Z23 Encounter for immunization; Z79.899 Other long term (current) drug therapy; Z68.21 Body mass index [BMI] 21.0-21.9, adult
CPT/HCPCS: 36415-UA; 36600-90; 71045-TC; 71250-TC; 73501; 74000-TC; 76857-TC; 80048-TC; 80053-TC; 81001-TC; 82803-TC; 82948-90; 83690-TC; 83880-TC; 84443-TC; 84484-TC; 85007-TC; 85025-TC; 85027-TC; 85610-TC; 87070; 87086-90; 87338-TC; 90799; 94760; J0690; J1030; J1956; J2543; J2930; J7030; X3401; Z7506; Z7610

== ENCOUNTER 2017-10-16 07:38 | Inpatient (IN) | payer MEDICARE, MEDICAID ==
--- NOTE | 2017-10-16 08:02 | ED Physician Chart ---
ED Chief Complaint/HPI - Patient Information Date Seen:: 10/16/17 Time Seen:: 07:30 Chief Complaint:: abnormal labs History of Present Illness:: Patient had labs drawn yesterday and sodium returned 157, potassium 6.8, chloride 122, BUN 118 and creatinine 4.0. Allergies:: Allergies Allergy/AdvReac Type Severity Reaction Status Date / Time No Known Allergies Allergy Verified 09/05/17 18:52 Historian:: EMS Review:: Transfer documents Reviewed ED Review of Systems - Review of Systems General/Constitutional: No fever, No chills, No weight loss, No weakness, No diaphoresis, No edema, No loss of appetite Skin: No skin lesions, No rash, No bruising Head: No headache, No light-headedness Eyes: No loss of vision, No pain, No diplopia ENT: No earache, No nasal drainage, No sore throat, No tinnitus Neck: No neck pain, No swelling, No thyromegaly, No stiffness, No mass noted Cardio Vascular: No chest pain, No palpitations, No PND, No orthopnea, No edema Pulmonary: No SOB, No cough, No sputum, No wheezing GI: No nausea, No vomiting, No diarrhea, No pain, No melena, No hematochezia, No constipation, No hematemesis G/U: No dysuria, No frequency, No hematuria Musculoskeletal: No bone or joint pain, No back pain, No muscle pain Endocrine: No polyuria, No polydipsia Psychiatric: No prior psych history, No depression, No anxiety, No suicidal ideation Hematopoietic: No bruising, No lymphadenopathy Allergic/Immuno: No urticaria, No angioedema Neurological: No syncope, No focal symptoms, No weakness, No paresthesia, No headache, No seizure, No dizziness, No confusion, No vertigo ED Past Medical History - Past Medical History Past Medical History: HTN, Asthma/COPD, PUD/GERD, Other (status post pneumonia; dysphagia; anemia; benign prostatic hypertrophy; glaucoma; psychosis; insomnia; anxiety) Family History: Other (unavailable) Social History: Care Facility Surgical History: other (unavailable) Psychiatricy History: Dementia Medication: Reviewed Family Medical History - Family Member Mother History Unknown: Yes ED Physical Exam - Physical Examination General/Constitutional: Awake Other Gen/Cons comments:: Chronically ill-appearing; barely verbal Head: Atraumatic Eyes: Lids, conjuctiva normal Other Eyes comments:: Left eye: Pupil about 2 mm with cataract; right eye: Pupil by 1 mm Skin: Nl inspection ENMT: External ears, nose nl, Lips, teeth, gums nl Neck: No nuchal rigidity Other Neck comments:: Neck stiff Respiratory: Nl effort/Exclusion, Clear to Auscultation Cardio Vascular: RRR GI: No tenderness/rebounding/guarding, Nondistended Extremities: Normal digits & nails Neuro/Psych: No focal deficits ED Labs/Radiology/EKG Results - Lab Results Results: Laboratory Results - last 24 hr 10/16/17 10/16/17 10/16/17 08:15 08:15 08:15 WBC 16.8 H RBC 3.60 L Hgb 10.7 L Hct 32.7 L MCV 90.9 MCH 29.7 MCHC Differential 32.7 RDW 17.1 Plt Count 321 MPV 7.3 Neutrophils % SUPERVISOR SE[employer] Band Neutrophils % 2 Lymphocytes % SUPERVISOR SEAMING Monocytes % SUPERVISOR SEAMING Eosinophils % [employer]PERVIS[employer] SEAMING Basophils % SUPERVISOR SEAMING Neutrophils (Manual) 83 H Lymphocytes 6 L Monocytes 8 Basophils 1 Platelet Estimate ADEQUATE Sodium 159 H* D Potassium 4.7 Chloride 129 H Carbon Dioxide 24.2 Anion Gap 10.5 BUN 87 H* Creatinine 2.0 H Est GFR ( Amer) TNP Est GFR (Non-Af Amer) TNP BUN/Creatinine Ratio 43.5 Glucose 119 H Whole Bld Lactic Acid 1.47 Calcium 9.3 ED Assessment - Assessment General Assessment: Patient has anemia, hypernatremic dehydration, leukocytosis and pneumonia. ED Septic Shock - . Is Septic Shock (SBP<90, OR Lactate>4 mmol\L) present?: No ED Reassessment (Disposition) - Reassessment Reassessment Condition:: Unchanged - Diagnosis Diagnosis:: Pneumonia; anemia; hypernatremic dehydration; leukocytosis - Patient Disposition Admitted to:: ICU Spoke to:: Pillo Jarrell Admitting Medical Physician:: Pillo Jarrell Condition at Disposition:: Critical
[2017-10-16] MEDS ORDERED: Sodium Chloride 0.9% 1,000 ML IV ONE (08:07)
--- NOTE | 2017-10-16 08:20 | Diagnostic Imaging Report ---
CHEST X-RAY: AP view INDICATION: Pneumonia COMPARISON: Chest x-ray 09/17/2017 FINDINGS: Chronic lung changes are seen with left lower lung zone infiltrates. Small effusions are noted. Heart size normal. Atherosclerosis is noted. Degenerative changes of the spine are noted. IMPRESSION: Chronic lung changes and left lower lung zone infiltrates. Follow-up recommended. Atherosclerotic vascular disease.
[2017-10-16 08:31] LABS: HEMATOCRIT 32.7 % (41.0-60); HEMOGLOBIN 10.7 gm/dL (12-16); MEAN CELL VOLUME 90.9 fl (80-99); MEAN CORPUSCULAR HEMOGLOBIN 29.7 pg (27.0-31.0); MEAN CORPUSCULAR HGB CONC 32.7 pg (28.0-36.0); MEAN PLATELET VOLUME 7.3 fl; PLATELET COUNT 321 Th/cmm (150-400); RED CELL DISTRIBUTION WIDTH 17.1 % (11.5-20.0)
[2017-10-16 08:32] LABS: WHITE BLOOD COUNT 16.8 Th/cmm (4.8-10.8)
[2017-10-16 08:38] LABS: ANION GAP 10.5 (7.0-16.0); CALCIUM SERUM 9.3 mg/dL (8.6-10.3); CARBON DIOXIDE 24.2 mEq/L (21.0-31.0); CHLORIDE 129 mEq/L (98-107); GLUCOSE 119 mg/dL (70-105); POTASSIUM SERUM 4.7 mEq/L (3.5-5.1)
[2017-10-16 08:43] LABS: BUN - UREA NITROGEN 87 mg/dL (7-25)
[2017-10-16 08:49] LABS: BAND NEUTROPHILE 2 % (0-10); BASOPHIL 1 % (0-3); LYMPHOCYTE 6 % (20-50); MANUAL DIFF REQUIRED? YES; MONOCYTE 8 % (2-10); NEUTROPHILS 83 % (40-80); TOTAL CELLS COUNTED 100
[2017-10-16 08:50] LABS: PLATELET ESTIMATE ADEQUATE (NORMAL)
[2017-10-16] MEDS ORDERED: Piperacillin Sodium/Tazobact 3.375 gm Vial IV ONE (08:53)
[2017-10-16 08:58] LABS: SODIUM SERUM 159 mEq/L (136-145)
[2017-10-16 10:21] LABS: URINE MICROSCOPIC INDICATED? YES; URINE SOURCE FOLEY PORT
[2017-10-16 10:39] LABS: URINE BILIRUBIN NEGATIVE (NEGATIVE); URINE BLOOD SMALL (NEGATIVE); URINE GLUCOSE (UA) NEGATIVE (NEGATIVE); URINE KETONE NEGATIVE (NEGATIVE); URINE LEUKOCYTE ESTERASE MODERATE (NEGATIVE); URINE NITRATE NEGATIVE (NEGATIVE); URINE PH 8.5 (4.6 - 8.0); URINE PROTEIN >=300 mg/dL (NEGATIVE); URINE UROBILINOGEN 0.2 E.U./dL (0.2 - 1.0)
[2017-10-16 10:50] LABS: URINE CLARITY HAZY (CLEAR); URINE COLOR YELLOW
[2017-10-16 11:01] LABS: URINE BACTERIA MODERATE /hpf (NONE SEEN); URINE EPITHELIAL CELLS FEW /lpf (FEW); URINE TRIPLE PHOSPHATE CRYSTAL MANY /hpf (FEW)
[2017-10-16] MEDS ORDERED: D5-0.45NS 1,000 ML IV SCH (11:45)
[2017-10-16] MEDS: Albuterol/Ipratropium Neb 3 ML AERS HHN SCH ×2 (15:12→19:36)
[2017-10-16] MEDS: Piperacillin/Tazobact 2.25 gm in 0.9% NS 50 ML IV SCH (17:10)
[2017-10-16] MEDS: Dextrose 5% 1,000 ML IV SCH (17:10)
--- NOTE | 2017-10-16 18:13 | History and Physical ---
History of Present Illness - HPI Chief Complaint: ALOC HPI: 87 y/o male who presents to [facility] ER from [facility] for abnormal lab values and was sent to the hospital for further evaluation. Labwork was drawn at the [facility] yesterday which revealed .... sodium 157, potassium 6.8, chloride 122, BUN 118 and creatinine 4.0. ED Past Medical History - Past Medical History Past Medical History: HTN, Asthma/COPD, PUD/GERD, Other (status post pneumonia; dysphagia; anemia; benign prostatic hypertrophy; glaucoma; psychosis; insomnia; anxiety) Family History: Other (unavailable) Social History: Care Facility Surgical History: other (unavailable) Psychiatricy History: Dementia Medication: Reviewed Family Medical History - Family Member Mother History Unknown: Yes Initial Labwork revealed .... ED Labs/Radiology/EKG Results - Lab Results Results: Laboratory Results - last 24 hr 10/16/17 10/16/17 10/16/17 08:15 08:15 08:15 WBC 16.8 H RBC 3.60 L Hgb 10.7 L Hct 32.7 L MCV 90.9 MCH 29.7 MCHC Differential 32.7 RDW 17.1 Plt Count 321 MPV 7.3 Neutrophils % GIN FEEDER Band Neutrophils % 2 Lymphocytes % GIN FEEDER Monocytes % GIN FEEDER Eosinophils % GIN FEEDER Basophils % GIN FEEDER Neutrophils (Manual) 83 H Lymphocytes 6 L Monocytes 8 Basophils 1 Platelet Estimate ADEQUATE Sodium 159 H* D Potassium 4.7 Chloride 129 H Carbon Dioxide 24.2 Anion Gap 10.5 BUN 87 H* Creatinine 2.0 H Est GFR ( Amer) TNP Est GFR (Non-Af Amer) TNP BUN/Creatinine Ratio 43.5 Glucose 119 H Whole Bld Lactic Acid 1.47 Calcium 9.3 CXR revealed LLL PNA Patient was subsequently admitted for further evaluation and treatment. Vital Signs: Last Vital Signs Temp 98.1 F 10/16/17 16:00 Pulse 88 10/16/17 17:00 Resp 20 10/16/17 17:00 BP 105/6 10/16/17 17:00 Pulse Ox 98 10/16/17 17:00 Past Medical History Cardiovascular: Report: HTN Pulmonary: Report: Asthma, COPD COMPUTER SYSTEMS DESIGNER: Report: Dementia GI: Report: GERD, Peptic Ulcer Psych: Report: Anxiety, Psychosis, Other (Insomnia) Musculoskeletal: Report: No Pertinent Hx Rheumatologic: Report: No pertinent Hx Infectious Disease: Report: No Pertinent Hx Renal/: Report: Other (BPH) Endocrine: Report: No Pertinent Hx Dermatology: Report: No Pertinent Hx Other History: Glaucoma - Past Surgical History Past Surgical History: Other (S/P gastrostomy tube insertion for dysphagia) Family Medical History - Family Member Mother History Unknown: Yes Social History Smoke: No Alcohol: None Drugs: None Lives: Half-Way - Medications Home Medications: Home Medication Medication Instructions Recorded Type Acetaminophen [Tylenol] 650 mg PO Q4HR PRN tab 09/08/17 Rx Al Hyd/Mg Hyd/Simethicone [Maalox] 30 ml PO Q4HR PRN udc 09/08/17 Rx Albuterol/Ipratropium Neb [Duoneb 3 ml HHN Q4H PRN aers 09/08/17 Rx Neb] Ascorbic Acid [Vitamin C] 500 mg PO DAILY tab 09/08/17 Rx Donepezil Hcl [Aricept] 10 mg PO HS tab 09/08/17 Rx Ferrous Sulfate [Iron] 325 mg PO BID tab 09/08/17 Rx Furosemide [Lasix] 20 mg PO DAILY tab 09/08/17 Rx Latanoprost 0.005% Ophth Soln 1 drop EACH EYE HS drops 09/08/17 Rx [Xalatan 0.005% Ophth Soln] Magnesium Hydroxide [Milk of 30 ml PO HS PRN udc 09/08/17 Rx Magnesia] Memantine [Namenda] 5 mg PO DAILY tab 09/08/17 Rx Multivitamin [Theragran] 1 tab PO DAILY tab 09/08/17 Rx OLANZapine [ZyPREXA] 2.5 mg PO DAILY tab 09/08/17 Rx OLANZapine [ZyPREXA] 5 mg PO HS tab 09/08/17 Rx Tamsulosin [Flomax] 0.4 mg PO HS cap 09/08/17 Rx Zolpidem Tartrate [Ambien] 5 mg PO HS PRN tab 09/08/17 Rx amLODIPine Besylate [Norvasc] 5 mg PO DAILY tab 09/08/17 Rx cloNIDine HCl [Catapres] 0.1 mg PO Q8H PRN tab 09/08/17 Rx diphenhydrAMINE [Benadryl 50 50 mg IM Q4HR PRN vial 09/08/17 Rx mg/mL] Acetaminophen [Tylenol] 650 mg GT Q4H PRN tab 09/22/17 Rx Al Hyd/Mg Hyd/Simethicone [Maalox] 30 ml GT Q4HR PRN udc 09/22/17 Rx Albuterol/Ipratropium Neb [Duoneb 3 ml HHN Q4H PRN aers 09/22/17 Rx Neb] Albuterol/Ipratropium Neb [Duoneb 3 ml HHN [id number] aers 09/22/17 Rx Neb] Ascorbic Acid [Vitamin C] 500 mg GT DAILY tab 09/22/17 Rx Bisacodyl [Dulcolax 10 Mg Supp] 10 mg RC DAILY PRN sup 09/22/17 Rx Budesonide [Pulmicort] 0.5 mg HHN BIDRT ud 09/22/17 Rx Docusate Sodium [Colace] 100 mg PO DAILY cap 09/22/17 Rx Donepezil Hcl [Aricept] 10 mg GT HS tab 09/22/17 Rx Fleet Enema 135 ml RC DAILY PRN btl 09/22/17 Rx Lactobacillus Rhamnosus GG 15B 1 each GT DAILY cap.sprink 09/22/17 Rx [Culturelle 15B] Latanoprost 0.005% Ophth Soln 1 drop EACH EYE HS drops 09/22/17 Rx [Xalatan 0.005% Ophth Soln] Lorazepam [Ativan] 1 mg GT Q6HR PRN tab 09/22/17 Rx Losartan Potassium [Cozaar] 50 mg GT DAILY tab 09/22/17 Rx Magnesium Hydroxide [Milk of 30 ml PO HS PRN udc 09/22/17 Rx Magnesia] Memantine [Namenda] 5 mg GT BID tab 09/22/17 Rx Mineral Oil [Mineral Oil 30 ml] 30 ml GT TID udc 09/22/17 Rx Multivitamin [Theragran] 1 tab GT DAILY tab 09/22/17 Rx OLANZapine [ZyPREXA] 2.5 mg GT DAILY tab 09/22/17 Rx OLANZapine [ZyPREXA] 5 mg GT HS tab 09/22/17 Rx Piperacillin Sodium/Tazobact 2.25 gm IV Q6HR vial 09/22/17 Rx [Zosyn] Tamsulosin [Flomax] 0.4 mg GT HS cap 09/22/17 Rx Zolpidem Tartrate [Ambien] 5 mg GT HS PRN tab 09/22/17 Rx amLODIPine Besylate [Norvasc] 5 mg GT DAILY tab 09/22/17 Rx cloNIDine HCl [Catapres] 0.1 mg GT Q8HR PRN tab 09/22/17 Rx metroNIDAZOLE 500mg/NS 100mL 500 mg IV Q8H bag 09/22/17 Rx [Flagyl*] - Allergies Allergies/Adverse Reactions: Allergies Allergy/AdvReac Type Severity Reaction Status Date / Time No Known Allergies Allergy Verified 09/05/17 18:52 Review of Systems - Review of Systems Constitutional: Report: No Significant Eyes: Report: No Significant ENT: Report: No Significant Respiratory: Report: No Significant Cardiovascular: Report: No Significant Gastrointestinal: Report: No Significant Genitourinary: Report: No Significant Musculoskeletal: Report: No Significant Skin: Report: No Significant Neurological: Report: Other (ALOC) Physical Exam - Physical Exam HEENT: Report: Ears Nose Throat within normal limits, Pharnyx within normal limits Neck: Report: Within normal limits Cardiovascular Systems: Report: +s1/s2 noted, Regular, Rate and Rhythm Respiratory: Report: Breath Sounds are within normal limits Abdomen: Report: Non-tender to palpation Back: Report: Inspection of back is within normal limits. Extremities: Report: Non-tender to palpation. Skin: Report: Color of skin is within normal limits - Lab Results All Lab Results last 24 hours: Microbiology 10/16/17 11:18 Gram Stain - Final Sputum Culture - Expectorated Sputum Sputum Culture - Final - Assessment Assessment: ALOC Encephalopathy Leukocytosis Anemia Hypernatremia Acute Renal Insufficiency GIANNI PNA HTN Asthma COPD PUD GERD s/p gastrostomy tube placement dysphagia benign prostatic hypertrophy glaucoma psychosis insomnia anxiety - Plan Plan: Admit to ICU Pulmonary consult Dr Raisa Katz Nephrology consult Dr. Morales Neurology consult Dr. Serrano IV hydration IV Zosyn repeat CBC,CMP tomorrow Blood cultures Urine cultures Sputum Cultures
[2017-10-16] MEDS: Budesonide 0.5 Mg/2 mL Ud HHN SCH (19:36)
[2017-10-17] MEDS: Dextrose 5% 1,000 ML IV SCH ×3 (00:30→22:30)
[2017-10-17] MEDS: Piperacillin/Tazobact 2.25 gm in 0.9% NS 50 ML IV SCH ×5 (01:29→23:33)
--- NOTE | 2017-10-17 02:26 | Progress Notes ---
DATE: 10/16/2017 PULMONARY AND CRITICAL CARE CONSULTATION NOTE REASON FOR CONSULTATION: Shortness of breath and abnormal chest x-ray. CONSULT NOTE: This is an 87-year-old gentleman who is a familiar with me from previous admission. The patient basically has a chronic pulmonary fibrosis with possibly COPD as well as the patient has a significant altered state of mind with significant evidence of previously hypercarbia. The patient basically was brought in up here because of chest congestion, more shortness of breath. Unfortunately, meaningful history from the patient is very difficult to or not available. PAST MEDICAL HISTORY: History of Alzheimer's, history of psychosis, history of chronic respiratory failure, history of suspect obstructive sleep apnea syndrome, also previous history of dysphagia, aphasia, and has a G-tube on a last admission. ALLERGIC HISTORY: Nil. SMOKING HISTORY: Not available. PHYSICAL EXAMINATION: GENERAL: This is an elderly looking gentleman, fidgety, but not responding to verbal stimuli, no respiratory distress, etc. VITAL SIGNS: The patient's recorded vital signs, temperature is 99.7, heart rate is 100, and saturation is 93 on room air. HEENT: Examination of the head is essentially unremarkable. Pupils appear to be equal and reacting to light. Conjunctivae slightly pallor. Oral cavity shows edentulous with dry mouth. NECK: No nodes in the neck could be palpated. CHEST: Shows occasional secretory noise with diminished air entry. HEART: Regular. ABDOMEN: Shows G-tube, otherwise unremarkable. EXTREMITIES: Shows quite atrophic changes, but otherwise unremarkable. DIAGNOSTIC DATA: The patient's chest x-ray shows basal interstitial changes, probably not much change than before. LABORATORY DATA: The patient's other pertinent laboratory studies, white count is 16.8, hemoglobin 10.7, and lymphocyte is 7. Sodium is 157, BUN is 87, creatinine is 2, and glucose is 119. The patient's urine does show moderate bacteria with [id number] leukocyte esterase positive. IMPRESSION: 1. The patient has a mild acute decompensated respiratory ____ secondary to poor ability to mobilize secretions. 2. Underlying obstructive sleep apnea syndrome. 3. Left nasal area infiltrate, probably acute on chronic. 4. Urosepsis with underlying dehydration. PLANS AND SUGGESTIONS: Hydration, etc. leave it up to salesperson fashion accessories. We will give aggressive inhalation treatment, sputum cultures as well as bronchodilator therapy, follow through blood gases, and repeat chest x-ray in the next 24-48 hours and go from there. JOB# [id number]
[2017-10-17 04:47] LABS: % BASOPHILS 0.9 % (0.0-2.0); % EOSINOPHILS 2.1 % (0.0-5.0); % LYMPHOCYTES 9.3 % (20.0-50.0); % MONOCYTES 10.2 % (2.0-10.0); % NEUTROPHILS 77.5 % (40.0-80.0); BASOPHILE ABSOLUTE 0.1 Th/cumm (0-0.2); EOSINOPHILE ABSOLUTE 0.3 Th/cmm (0.1-0.4); HEMATOCRIT 29.1 % (41.0-60); HEMOGLOBIN 9.7 gm/dL (12-16); LYMPHOCYTE ABSOLUTE 1.2 Th/cmm (1.5-3.0); MEAN CELL VOLUME 89.9 fl (80-99); MEAN CORPUSCULAR HGB CONC 33.4 pg (28.0-36.0); MEAN PLATELET VOLUME 7.2 fl; MONOCYTE ABSOLUTE 1.3 Th/cmm (0.3-1.0); NEUTROPHILE ABSOLUTE 9.8 Th/cmm (1.8-8.0); PLATELET COUNT 259 Th/cmm (150-400); RED BLOOD COUNT 3.24 Mil/cmm (3.80-5.80); RED CELL DISTRIBUTION WIDTH 16.3 % (11.5-20.0)
[2017-10-17 04:50] LABS: WHITE BLOOD COUNT 12.7 Th/cmm (4.8-10.8)
[2017-10-17 04:57] LABS: ALBUMIN 2.6 gm/dL (4.2-5.5); ALKALINE PHOSPHATASE 107 U/L (34-104); ANION GAP 10.6 (7.0-16.0); BILIRUBIN,TOTAL 0.5 mg/dL (0.3-1.0); BUN - UREA NITROGEN 59 mg/dL (7-25); CALCIUM SERUM 9.1 mg/dL (8.6-10.3); CARBON DIOXIDE 23.7 mEq/L (21.0-31.0); CHLORIDE 128 mEq/L (98-107); CREATININE - SERUM 1.4 mg/dL (0.7-1.3); GLUCOSE 121 mg/dL (70-105); MAGNESIUM 1.9 mg/dL (1.9-2.7); PHOSPHOROUS 3.1 mg/dL (2.5-5.0); POTASSIUM SERUM 4.3 mEq/L (3.5-5.1); SGOT 20 U/L (13-39); SGPT/ALT 18 U/L (7-52); TOTAL PROTEIN,SERUM 5.3 gm/dL (6.0-8.3); URIC ACID 3.7 mg/dL (4.4-7.6)
[2017-10-17 05:03] LABS: SODIUM SERUM 158 mEq/L (136-145)
--- NOTE | 2017-10-17 06:00 | Consultation ---
DATE OF CONSULTATION: 10/16/2017 ASSISTANT COOK: Wade Morales MD REASON FOR CONSULTATION: Worsening kidney function, electrolyte imbalance and fluid management. HISTORY OF PRESENT ILLNESS: This is an 87-year-old male with past medical history of chronic kidney disease, who was brought in because of abnormal labs. A few hours prior to admission, he had labs drawn at the [facility]. This revealed a white count of 15.7. However, his sodium was 157 with a potassium of 6.8 and a BUN/creatinine of 118/4. Thus, he was brought to the Emergency Room. His chest x-ray revealed left lower lobe infiltrates and white count was 16.8. UA was suggestive of a urinary tract infection. His sodium was 159. His sodium at the Emergency Room was 159, with a BUN/creatinine of 87/2. He does not have any history of nausea and vomiting nor diarrhea. PAST MEDICAL HISTORY: 1. Chronic kidney disease. 2. COPD. 3. GERD without esophagitis. 4. Anemia of chronic disease. 5. Essential hypertension. 6. BPH. 7. Glaucoma. 8. Dementia without behavioral disturbance. 9. Psychosis. 10. Anxiety. 11. Insomnia. 12. Dysphagia. CURRENT MEDICATIONS: He is currently on albuterol/ipratropium, budesonide, Zosyn, . ALLERGIES: No known drug allergies. SOCIAL AND FAMILY HISTORY: I was not able to obtain from the patient because he remains nonverbal. REVIEW OF SYSTEMS: Again, I was not able to decipher from the patient because of the same reasons. PHYSICAL EXAMINATION: GENERAL: The patient is arousable, not in any distress. VITAL SIGNS: His blood pressure is 128/55, pulse 95, temperature 98 degrees. SKIN: Poor turgor, warm, no rash, no jaundice appreciated. HEENT: Head; normocephalic, atraumatic. Eyes, extraocular muscles intact. Pupils equal, round, and reactive to light and accommodates. Anicteric sclerae. Pale conjunctivae. Nose, midline nasal septum. Mouth, very dry mucosa with poor dentition. NECK: Supple, no adenopathy, no thyromegaly, no bruits. Trachea palpated in the midline. CHEST AND CARDIOVASCULAR SYSTEM: S1, S2. No rub, murmur nor gallop appreciated. Point of maximal impulse fifth intercostal space, left midclavicular line. No abdominal or femoral bruits appreciated. LUNGS: Equal expansion. No use of accessory muscles. No supraclavicular retractions. Decreased breath sounds with no rales nor wheezes appreciated. ABDOMEN: Mildly globular, soft. Positive for bowel sounds. No bruits either diastolic or systolic. RECTAL: Deferred. GENITOURINARY: Normal appearing male genitalia with indwelling Eduardo catheter. MUSCULOSKELETAL: No effusions present in his joints, but unable to assess his range of motion. EXTREMITIES: He has I would say +2 right calf, ankle and foot edema with a +1 left ankle and foot edema, he also has mild edema in his right hand. No cyanosis or clubbing. He has a palpable femoral, but unable to fully appreciate popliteal and dorsalis pedis pulses. NEUROLOGIC: As mentioned, the patient is demented, unable to follow my neuro commands, so I was not able to pursue further my neuro exam. LABORATORY DATA: Labs did reveal sodium 159, potassium 4.7, chloride 129, BUN 87, creatinine 2, glucose 119, BNP 83, calcium 9.3. White count 16.8, hemoglobin 10.7, hematocrit 32.7, platelets 321, polys 83%. IMPRESSION: 1. Acute kidney injury on chronic kidney disease. Chronic kidney disease is secondary to hypertensive nephrosclerosis with longstanding history of hypertension. Acute kidney injury in this case is initially prerenal in nature. The patient's physical exam revealed poor skin turgor with dry oral mucosa. He also has hypoalbuminemia. These are suggestive of dehydration with decrease in effective circulating volume. His prerenal azotemia eventually progressed to acute tubular injury. 2. Sepsis secondary to complicated urinary tract infection and also an underlying left lower lobe healthcare-acquired pneumonia. 3. Metabolic encephalopathy secondary to underlying sepsis and even possibly from medications. 4. Anemia of chronic disease. 5. Dehydration. 6. Chronic obstructive pulmonary disease. 7. Gastroesophageal reflux disease without esophagitis. 8. Essential hypertension. 9. Benign prostatic hypertrophy. 10. History of glaucoma. 11. Psychosis. 12. Anxiety. 13. Insomnia. 14. Dysphagia status post PEG placement. PLAN: 1. Follow up cultures, especially urine C and S. 2. Continue on with Zosyn for now. 3. Urine sodium, eosinophils, creatinine and osmolarity. 4. Urine microalbumin to creatinine ratio. 5. Renal ultrasound. 6. Continue to follow up electrolytes. Thank you, Dr. Jarrell for this consult. We will follow the patient closely with you. JOB# [id number]
[2017-10-17] MEDS: Albuterol/Ipratropium Neb 3 ML AERS HHN SCH ×4 (07:27→19:02)
[2017-10-17] MEDS: Budesonide 0.5 Mg/2 mL Ud HHN SCH ×2 (07:27→19:02)
--- NOTE | 2017-10-17 08:04 | Diagnostic Imaging Report ---
Renal ultrasound HISTORY: Abnormal renal function test The right kidney is normal in size (11.6 x 5.0 x 5.8 cm). There is evidence of mild to moderate degree of hydronephrosis involving the collecting system. The left kidney is enlarged (12.6 x 5.3 x 6.8 cm). Suboptimal delineation of the renal margins. There appears to be multiple well-circumscribed sonolucent lesions consistent with cysts throughout the kidney. There also appears to be degree of dilatation involving the left renal pelvis. A CT scan would provide additional detail and assessment. The exam of the pelvis demonstrates marked enlargement of the prostate gland with encroachment on the floor of the urinary bladder. Generalized urinary bladder wall thickening. IMPRESSION: 1. Somewhat enlarged left kidney with poor delineation the entire renal margins. 2. Evidence of mild to moderate right-sided hydronephrosis 3. Findings suggesting multiple left renal cysts. Questionable hydronephrosis. A CT scan is recommended for further clarification and assessment. 4. Marked prostatic enlargement with encroachment on the floor of the urinary bladder. Generalized thickening of the urinary bladder wall may be associated with changes of chronic bladder outlet obstruction.
[2017-10-17] MEDS ORDERED: Maalox 30 mL Cup GT PRN (08:30)
[2017-10-17] MEDS ORDERED: Magnesium Hydroxide (MOM) 30 mL UDC PO PRN (08:30)
[2017-10-17] MEDS ORDERED: Albuterol/Ipratropium Neb 3 ML AERS HHN PRN (08:30)
[2017-10-17] MEDS ORDERED: [UNRECOGNIZED DRUG - OTHER] IV SCH (08:30)
[2017-10-17] MEDS ORDERED: METRONIDAZOLE IV SCH (08:30)
[2017-10-17] MEDS ORDERED: Fleet Enema 135 mL RC PRN (08:30)
--- NOTE | 2017-10-17 08:39 | General Progress Note ---
Subjective - Review of Systems Service Date: 10/17/17 Subjective: Patient is more awake and alert but confused. moves upper extremities. Objective - Results Result Diagrams: 10/17/17 04:20 10/17/17 04:20 Recent Labs: Laboratory Last Values WBC 12.7 Th/cmm (4.8-10.8) H 10/17/17 04:20 RBC 3.24 Mil/cmm (3.80-5.80) L 10/17/17 04:20 Hgb 9.7 gm/dL (12-16) L 10/17/17 04:20 Hct 29.1 % (41.0-60) L 10/17/17 04:20 MCV 89.9 fl (80-99) 10/17/17 04:20 MCH 30.0 pg (27.0-31.0) 10/17/17 04:20 MCHC Differential 33.4 pg (28.0-36.0) 10/17/17 04:20 RDW 16.3 % (11.5-20.0) 10/17/17 04:20 Plt Count 259 Th/cmm (150-400) 10/17/17 04:20 MPV 7.2 fl 10/17/17 04:20 Neutrophils % 77.5 % (40.0-80.0) 10/17/17 04:20 Band Neutrophils % 2 % (0-10) 10/16/17 08:15 Lymphocytes % 9.3 % (20.0-50.0) L 10/17/17 04:20 Monocytes % 10.2 % (2.0-10.0) H 10/17/17 04:20 Eosinophils % 2.1 % (0.0-5.0) 10/17/17 04:20 Basophils % 0.9 % (0.0-2.0) 10/17/17 04:20 Neutrophils (Manual) 83 % (40-80) H 10/16/17 08:15 Lymphocytes 6 % (20-50) L 10/16/17 08:15 Monocytes 8 % (2-10) 10/16/17 08:15 Basophils 1 % (0-3) 10/16/17 08:15 Platelet Estimate ADEQUATE (NORMAL) 10/16/17 08:15 Sodium 158 mEq/L (136-145) H 10/17/17 04:20 Potassium 4.3 mEq/L (3.5-5.1) 10/17/17 04:20 Chloride 128 mEq/L (98-107) H 10/17/17 04:20 Carbon Dioxide 23.7 mEq/L (21.0-31.0) 10/17/17 04:20 Anion Gap 10.6 (7.0-16.0) 10/17/17 04:20 BUN 59 mg/dL (7-25) H 10/17/17 04:20 Creatinine 1.4 mg/dL (0.7-1.3) H 10/17/17 04:20 Est GFR ( Amer) TNP 10/17/17 04:20 Est GFR (Non-Af Amer) TNP 10/17/17 04:20 BUN/Creatinine Ratio 42.1 10/17/17 04:20 Glucose 121 mg/dL (70-105) H 10/17/17 04:20 Whole Bld Lactic Acid 1.47 mmol/L (0.60-1.99) 10/16/17 08:15 Uric Acid 3.7 mg/dL (4.4-7.6) L 10/17/17 04:20 Calcium 9.1 mg/dL (8.6-10.3) 10/17/17 04:20 Phosphorus 3.1 mg/dL (2.5-5.0) 10/17/17 04:20 Magnesium 1.9 mg/dL (1.9-2.7) 10/17/17 04:20 Total Bilirubin 0.5 mg/dL (0.3-1.0) 10/17/17 04:20 AST 20 U/L (13-39) 10/17/17 04:20 ALT 18 U/L (7-52) 10/17/17 04:20 Alkaline Phosphatase 107 U/L (34-104) H 10/17/17 04:20 Ammonia 43 umol/L (16-53) 10/17/17 04:20 B-Natriuretic Peptide 83.6 pg/mL (5.0-100.0) 10/16/17 08:15 Total Protein 5.3 gm/dL (6.0-8.3) L 10/17/17 04:20 Albumin 2.6 gm/dL (4.2-5.5) L 10/17/17 04:20 Globulin 2.7 gm/dL 10/17/17 04:20 Albumin/Globulin Ratio 1.0 (1.0-1.8) 10/17/17 04:20 Urine Source [place] 10/16/17 09:00 Urine Color YELLOW 10/16/17 09:00 Urine Clarity HAZY (CLEAR) 10/16/17 09:00 Urine pH 8.5 (4.6 - 8.0) 10/16/17 09:00 Ur Specific [place] <= 1.005 (1.005-1.030) 10/16/17 09:00 Urine Protein >=300 mg/dL (NEGATIVE) 10/16/17 09:00 Urine Glucose (UA) NEGATIVE mg/dL (NEGATIVE) 10/16/17 09:00 Urine Ketones NEGATIVE mg/dL (NEGATIVE) 10/16/17 09:00 Urine Blood SMALL (NEGATIVE) H 10/16/17 09:00 Urine Nitrate NEGATIVE (NEGATIVE) 10/16/17 09:00 Urine Bilirubin NEGATIVE (NEGATIVE) 10/16/17 09:00 Urine Urobilinogen 0.2 E.U./dL (0.2 - 1.0) 10/16/17 09:00 Ur Leukocyte Esterase MODERATE (NEGATIVE) H 10/16/17 09:00 Urine RBC 2-5 /hpf (0-5) H 10/16/17 09:00 Urine WBC 6-10 /hpf (0-5) 10/16/17 09:00 Ur Epithelial Cells FEW /lpf (FEW) 10/16/17 09:00 Triple Phos Crystals MANY /hpf (FEW) 10/16/17 09:00 Urine Bacteria MODERATE /hpf (NONE SEEN) H 10/16/17 09:00 - Physical Exam Vitals and I&O: Vital Signs Temp 97.3 F 10/17/17 04:00 Pulse 76 10/17/17 07:40 Resp 18 10/17/17 07:40 BP 123/69 10/17/17 06:00 Pulse Ox 100 10/17/17 07:40 Intake & Output 10/16/17 10/17/17 10/17/17 18:59 06:59 18:59 Intake Total 1150 783.333 763.333 Output Total 1300 850 Balance -150 -66.667 763.333 Weight (lbs) 68.039 kg 58.831 kg Intake: Intake, IV Amount 1050 783.333 763.333 Dextrose 5% 1,000 ml @ 733.333 713.333 100 mls/hr IV .Q10H [facility] Rx#:[id number] Piperacillin Sodium/ 50 50 Tazobact 2.25 gm In Sodium Chloride 0.9% 50 ml @ 100 mls/hr IV Q8HR [facility] Rx#:[id number] Other 100 Output: Urine 1300 850 Other: # Bowel Movements 0 Weight Source Bedscale Bedscale Active Medications: Current Medications Albuterol/Ipratropium (Duoneb Neb) 3 ml HHN [id number] [facility] Stop: 12/15/17 14:59 Last Admin: 10/17/17 07:27 Dose: 3 ml Budesonide (Pulmicort) 0.5 mg HHN BIDRT [facility] Stop: 12/15/17 18:59 Last Admin: 10/17/17 07:27 Dose: 0.5 mg Piperacillin Sod/Tazobactam (Sod 2.25 gm/ Sodium Chloride) 50 mls @ 100 mls/hr IV Q8HR [facility] Stop: 12/15/17 12:59 Last Infusion: 10/17/17 07:38 Dose: Infused Dextrose (D5w) 1,000 mls @ 100 mls/hr IV .Q10H [facility] Stop: 12/15/17 14:29 Last Infusion: 10/17/17 07:38 Dose: 100 mls/hr Miscellaneous (Zosyn Iv Per Pharmacy) 1 [facility] PRN PRN PRN Reason: PROTOCOL Stop: 12/15/17 10:42 General: Alert, No acute distress, Other (confused) HEENT: Atraumatic, PERRLA, EOMI Neck: Supple, no JVD, no Thyromegaly Cardiovascular: Regular rate, Normal S1, Normal S2 Lungs: Other (decreased breath sounds) Abdomen: Bowel sounds, Soft Extremities: Edema (right lower extremity,erythema), no Clubbing, no Cyanosis - Procedures Procedures: Procedures Procedure Code Date EGD ENDO MUCOSAL RESECTION 70209 09/08/[address] GASTROSTOMY TUBE 53887 09/08/17 EXCISION OF STOMACH, ENDO, DIAGN [id number] 09/08/17 INSERTION OF FEEDING DEVICE INTO STOMACH, PERC APPROACH [id number] 09/08/17 INTRODUCTION OF SERUM/TOX/VACCINE INTO MUSCLE, PERC APPROACH [id number] 09/08/17 Assessment/Plan - Assessment Assessment: ALOC Encephalopathy Sepsis Anemia Hypernatremia Acute Renal Insufficiency GIANNI PNA HTN Asthma COPD PUD GERD s/p gastrostomy tube placement dysphagia benign prostatic hypertrophy glaucoma psychosis insomnia anxiety Lower Ext Edema R/O DVT Enlarge Prostate Right Sided Hydronephrosis - Plan Plan: Admit to ICU Pulmonary consult Dr Raisa Katz Nephrology consult Dr. Morales Neurology consult Dr. Serrano IV hydration IV Zosyn repeat CBC,CMP tomorrow Blood cultures Urine cultures Sputum Cultures PSA Chest Xray CBC, CMP B/L Venous doppler US
[2017-10-17] MEDS: Multivitamin Tab GT SCH (09:36)
[2017-10-17] MEDS: Lactobacillus Rhamnosus GG 15 Billion CFU CAP.SPRINK GT SCH (09:36)
[2017-10-17] MEDS: Ferrous Sulfate 325 MG TAB PO SCH ×2 (09:36→17:21)
[2017-10-17 09:48] LABS: ALLEN TEST YES
[2017-10-17 11:28] LABS: CREATININEURINE 38.7 mg/dl
[2017-10-17 14:13] LABS: INR 1.14 (0.5-1.4)
--- NOTE | 2017-10-17 14:45 | Diagnostic Imaging Report ---
Bilateral lower extremity Doppler venous ultrasound exam HISTORY: Pain, swelling Sonographic sector images were obtained through the deep venous systems of both legs. Associated Doppler data was obtained. The exam of the right leg demonstrates intraluminal echogenic density consistent with thrombus within the common femoral, superficial femoral, popliteal, and posterior tibial veins. Absence of compressibility and augmentation responses. The left leg demonstrates intraluminal echogenic density consistent with thrombus within the distal portion of the superficial femoral vein. The remainder the deep venous system appears patent. IMPRESSION: 1. Findings consistent with diffuse deep vein thrombophlebitis within the right leg and within the distal portion of the left superficial femoral vein.
--- NOTE | 2017-10-17 15:16 | General Progress Note ---
Subjective - Review of Systems Service Date: 10/17/17 Subjective: arousable, comfortable Objective - Results Result Diagrams: 10/17/17 04:20 10/17/17 04:20 Recent Labs: Laboratory Last Values WBC 12.7 Th/cmm (4.8-10.8) H 10/17/17 04:20 RBC 3.24 Mil/cmm (3.80-5.80) L 10/17/17 04:20 Hgb 9.7 gm/dL (12-16) L 10/17/17 04:20 Hct 29.1 % (41.0-60) L 10/17/17 04:20 MCV 89.9 fl (80-99) 10/17/17 04:20 MCH 30.0 pg (27.0-31.0) 10/17/17 04:20 MCHC Differential 33.4 pg (28.0-36.0) 10/17/17 04:20 RDW 16.3 % (11.5-20.0) 10/17/17 04:20 Plt Count 259 Th/cmm (150-400) 10/17/17 04:20 MPV 7.2 fl 10/17/17 04:20 Neutrophils % 77.5 % (40.0-80.0) 10/17/17 04:20 Band Neutrophils % 2 % (0-10) 10/16/17 08:15 Lymphocytes % 9.3 % (20.0-50.0) L 10/17/17 04:20 Monocytes % 10.2 % (2.0-10.0) H 10/17/17 04:20 Eosinophils % 2.1 % (0.0-5.0) 10/17/17 04:20 Basophils % 0.9 % (0.0-2.0) 10/17/17 04:20 Neutrophils (Manual) 83 % (40-80) H 10/16/17 08:15 Lymphocytes 6 % (20-50) L 10/16/17 08:15 Monocytes 8 % (2-10) 10/16/17 08:15 Basophils 1 % (0-3) 10/16/17 08:15 Platelet Estimate ADEQUATE (NORMAL) 10/16/17 08:15 PT 12.0 SECONDS (9.5-11.5) H 10/17/17 13:28 INR 1.14 (0.5-1.4) 10/17/17 13:28 PTT (Actin FS) 26.0 SECONDS (26.0-38.0) 10/17/17 13:28 Specimen Source Arterial 10/17/17 09:33 Sample Site Right Radial 10/17/17 09:33 pH 7.40 (7.35-7.45) 10/17/17 09:33 pCO2 37.0 mmHg (35.0-45.0) 10/17/17 09:33 pO2 84.0 mmHg (80.0-100.0) 10/17/17 09:33 HCO3 23.7 mEq/L (20.0-26.0) 10/17/17 09:33 Base Excess -1.6 mEq/L (-3.0-3.0) 10/17/17 09:33 O2 Saturation 96.0 % (92.0-100.0) 10/17/17 09:33 Franki Test YES 10/17/17 09:33 Vent Rate NA 10/17/17 09:33 Inspired O2 28 10/17/17 09:33 Tidal Volume NA 10/17/17 09:33 PEEP NA 10/17/17 09:33 Pressure (ins/psv/peep) NA 10/17/17 09:33 Critical Value E.COOL 10/17/17 09:33 Sodium 158 mEq/L (136-145) H 10/17/17 04:20 Potassium 4.3 mEq/L (3.5-5.1) 10/17/17 04:20 Chloride 128 mEq/L (98-107) H 10/17/17 04:20 Carbon Dioxide 23.7 mEq/L (21.0-31.0) 10/17/17 04:20 Anion Gap 10.6 (7.0-16.0) 10/17/17 04:20 BUN 59 mg/dL (7-25) H 10/17/17 04:20 Creatinine 1.4 mg/dL (0.7-1.3) H 10/17/17 04:20 Est GFR ( Amer) TNP 10/17/17 04:20 Est GFR (Non-Af Amer) TNP 10/17/17 04:20 BUN/Creatinine Ratio 42.1 10/17/17 04:20 Glucose 121 mg/dL (70-105) H 10/17/17 04:20 Whole Bld Lactic Acid 1.47 mmol/L (0.60-1.99) 10/16/17 08:15 Uric Acid 3.7 mg/dL (4.4-7.6) L 10/17/17 04:20 Calcium 9.1 mg/dL (8.6-10.3) 10/17/17 04:20 Phosphorus 3.1 mg/dL (2.5-5.0) 10/17/17 04:20 Magnesium 1.9 mg/dL (1.9-2.7) 10/17/17 04:20 Total Bilirubin 0.5 mg/dL (0.3-1.0) 10/17/17 04:20 AST 20 U/L (13-39) 10/17/17 04:20 ALT 18 U/L (7-52) 10/17/17 04:20 Alkaline Phosphatase 107 U/L (34-104) H 10/17/17 04:20 Ammonia 43 umol/L (16-53) 10/17/17 04:20 B-Natriuretic Peptide 83.6 pg/mL (5.0-100.0) 10/16/17 08:15 Total Protein 5.3 gm/dL (6.0-8.3) L 10/17/17 04:20 Albumin 2.6 gm/dL (4.2-5.5) L 10/17/17 04:20 Globulin 2.7 gm/dL 10/17/17 04:20 Albumin/Globulin Ratio 1.0 (1.0-1.8) 10/17/17 04:20 Urine Source [facility] [place] 10/16/17 09:00 Urine Color YELLOW 10/16/17 09:00 Urine Clarity HAZY (CLEAR) 10/16/17 09:00 Urine pH 8.5 (4.6 - 8.0) 10/16/17 09:00 Ur Specific [place] <= 1.005 (1.005-1.030) 10/16/17 09:00 Urine Protein >=300 mg/dL (NEGATIVE) 10/16/17 09:00 Urine Glucose (UA) NEGATIVE mg/dL (NEGATIVE) 10/16/17 09:00 Urine Ketones NEGATIVE mg/dL (NEGATIVE) 10/16/17 09:00 Urine Blood SMALL (NEGATIVE) H 10/16/17 09:00 Urine Nitrate NEGATIVE (NEGATIVE) 10/16/17 09:00 Urine Bilirubin NEGATIVE (NEGATIVE) 10/16/17 09:00 Urine Urobilinogen 0.2 E.U./dL (0.2 - 1.0) 10/16/17 09:00 Ur Leukocyte Esterase MODERATE (NEGATIVE) H 10/16/17 09:00 Urine RBC 2-5 /hpf (0-5) H 10/16/17 09:00 Urine WBC 6-10 /hpf (0-5) 10/16/17 09:00 Ur Epithelial Cells FEW /lpf (FEW) 10/16/17 09:00 Triple Phos Crystals MANY /hpf (FEW) 10/16/17 09:00 Urine Bacteria MODERATE /hpf (NONE SEEN) H 10/16/17 09:00 Urine Creatinine 38.7 mg/dl 10/16/17 09:00 Urine Microalbumin 116 10/16/17 09:00 Microalb/Creat Ratio 299.7 10/16/17 09:00 - Physical Exam Vitals and I&O: Vital Signs Temp 97.5 F 10/17/17 07:00 Pulse 84 10/17/17 14:46 Resp 18 10/17/17 14:46 BP 91/43 10/17/17 12:00 Pulse Ox 96 10/17/17 14:46 Intake & Output 10/16/17 10/17/17 10/17/17 18:59 06:59 18:59 Intake Total 1150 621.906 4983.000 Output Total 1300 850 Balance -150 -66.667 1050.000 Weight (lbs) 68.039 kg 58.831 kg Intake: Intake, IV Amount 1050 869.315 7518.000 Dextrose 5% 1,000 ml @ 909.544 5975.000 100 mls/hr IV .Q10H ANG Rx#:[id number] Piperacillin Sodium/ 50 50 Tazobact 2.25 gm In Sodium Chloride 0.9% 50 ml @ 100 mls/hr IV Q8HR ANG Rx#:[id number] Other 100 Output: Urine 1300 850 Other: # Bowel Movements 0 Weight Source Bedscale Bedscale Active Medications: Current Medications Acetaminophen (Tylenol) 650 mg GT Q4H PRN PRN Reason: Mild pain, temp above 100 Stop: 12/16/17 08:29 Al Hydrox/Mg Hydrox/Simethicone (Maalox) 30 ml GT Q4HR PRN PRN Reason: GI distress Stop: 12/16/17 08:29 Albuterol/Ipratropium (Duoneb Neb) 3 ml HHN [id number] ANG Stop: 12/15/17 14:59 Last Admin: 10/17/17 14:45 Dose: 3 ml Albuterol/Ipratropium (Duoneb Neb) 3 ml HHN Q4H PRN PRN Reason: Wheezing Stop: 12/16/17 08:29 Amlodipine Besylate (Norvasc) 5 mg GT DAILY ANG Stop: 12/16/17 08:59 Last Admin: 10/17/17 09:37 Dose: Not Given Ascorbic Acid (Vitamin C) 500 mg GT DAILY ANG Stop: 12/16/17 08:59 Last Admin: 10/17/17 09:36 Dose: 500 mg Bisacodyl (Dulcolax 10 Mg Supp) 10 mg RC DAILY PRN PRN Reason: Constipation Stop: 12/16/17 08:29 Budesonide (Pulmicort) 0.5 mg HHN BIDRT ANG Stop: 12/15/17 18:59 Last Admin: 10/17/17 07:27 Dose: 0.5 mg Diphenhydramine HCl (Benadryl 50 Mg/Ml) 50 mg IM Q4HR PRN PRN Reason: Agitation Stop: 12/16/17 08:29 Docusate Sodium (Colace) 100 mg PO DAILY ANG Stop: 12/16/17 08:59 Last Admin: 10/17/17 09:36 Dose: 100 mg Donepezil HCl (Aricept) 10 mg GT HS ANG Stop: 12/16/17 20:59 Ferrous Sulfate (Iron) 325 mg PO BID ANG Stop: 12/16/17 08:59 Last Admin: 10/17/17 09:36 Dose: 325 mg Dextrose (D5w) 1,000 mls @ 100 mls/hr IV .Q10H ANG Stop: 12/15/17 14:29 Last Admin: 10/17/17 11:57 Dose: 100 mls/hr Piperacillin Sod/Tazobactam (Sod 2.25 gm/ Sodium Chloride) 50 mls @ 100 mls/hr IV Q6HR AGN Stop: 12/15/17 12:59 Last Admin: 10/17/17 11:59 Dose: 100 mls/hr Lactobacillus Rhamnosus (Culturelle 15b) 1 each GT DAILY ANG Stop: 12/16/17 08:59 Last Admin: 10/17/17 09:36 Dose: 1 each Latanoprost (Xalatan 0.005% Ophth Soln) 1 drop EACH EYE HS ANG Stop: 12/16/17 20:59 Lorazepam (Ativan) 1 mg GT Q6HR PRN; Protocol PRN Reason: Agitation Stop: 12/16/17 08:29 Losartan Potassium (Cozaar) 50 mg GT DAILY ANG Stop: 12/16/17 08:59 Last Admin: 10/17/17 09:37 Dose: Not Given Magnesium Hydroxide (Milk Of Magnesia) 30 ml PO HS PRN PRN Reason: Constipation Stop: 12/16/17 08:29 Memantine (Namenda) 5 mg GT BID ANG Stop: 12/16/17 08:59 Last Admin: 10/17/17 09:36 Dose: 5 mg Mineral Oil (Mineral Oil 30 Ml) 30 ml GT TID ANG Stop: 12/16/17 08:59 Last Admin: 10/17/17 14:20 Dose: 30 ml Miscellaneous (Zosyn Iv Per Pharmacy) 1 [facility] PRN PRN PRN Reason: PROTOCOL Stop: 12/15/17 10:42 Multivitamins/Vitamin C (Theragran) 1 tab GT DAILY ANG Stop: 12/16/17 08:59 Last Admin: 10/17/17 09:36 Dose: 1 tab Mupirocin (Bactroban Oint) 1 appl NS BID ANG Stop: 10/22/17 09:01 Olanzapine (Zyprexa) 5 mg GT HS ANG PRN Reason: Protocol Stop: 12/16/17 20:59 Olanzapine (Zyprexa) 2.5 mg GT DAILY ANG PRN Reason: Protocol Stop: 12/16/17 08:59 Sodium Phosphate (Fleet Enema) 135 ml RC DAILY PRN PRN Reason: Constipation Stop: 12/16/17 08:29 Tamsulosin HCl (Flomax) 0.4 mg GT HS ANG Stop: 12/16/17 20:59 Zolpidem Tartrate (Ambien) 5 mg GT HS PRN PRN Reason: Insomnia Stop: 12/16/17 08:29 General: Alert, No acute distress, Other (confused) HEENT: Atraumatic, PERRLA, EOMI Neck: Supple, no JVD, no Thyromegaly Cardiovascular: Regular rate, Normal S1, Normal S2 Lungs: Other (decreased breath sounds, few rhonchi) Abdomen: Bowel sounds, Soft Extremities: Edema (right lower extremity,erythema), no Clubbing, no Cyanosis - Procedures Procedures: Procedures Procedure Code Date EGD ENDO MUCOSAL RESECTION 18574 09/08/[address] GASTROSTOMY TUBE 10180 09/08/17 EXCISION OF STOMACH, ENDO, DIAGN [id number] 09/08/17 INSERTION OF FEEDING DEVICE INTO STOMACH, PERC APPROACH [id number] 09/08/17 INTRODUCTION OF SERUM/TOX/VACCINE INTO MUSCLE, PERC APPROACH [id number] 09/08/17 Assessment/Plan - Assessment Assessment: SWATHI on CKD Sepsis 2/2 Cx UTI Met Enceph Anemia CD COPD GERD Psychosis - Plan Plan: Lab - Result Diagrams 10/17/17 04:20 10/17/17 04:20 Current Medications Acetaminophen (Tylenol) 650 mg GT Q4H PRN PRN Reason: Mild pain, temp above 100 Stop: 12/16/17 08:29 Al Hydrox/Mg Hydrox/Simethicone (Maalox) 30 ml GT Q4HR PRN PRN Reason: GI distress Stop: 12/16/17 08:29 Albuterol/Ipratropium (Duoneb Neb) 3 ml HHN [id number] [facility] Stop: 12/15/17 14:59 Last Admin: 10/17/17 14:45 Dose: 3 ml Albuterol/Ipratropium (Duoneb Neb) 3 ml HHN Q4H PRN PRN Reason: Wheezing Stop: 12/16/17 08:29 Amlodipine Besylate (Norvasc) 5 mg GT DAILY [facility] Stop: 12/16/17 08:59 Last Admin: 10/17/17 09:37 Dose: Not Given Ascorbic Acid (Vitamin C) 500 mg GT DAILY [facility] Stop: 12/16/17 08:59 Last Admin: 10/17/17 09:36 Dose: 500 mg Bisacodyl (Dulcolax 10 Mg Supp) 10 mg RC DAILY PRN PRN Reason: Constipation Stop: 12/16/17 08:29 Budesonide (Pulmicort) 0.5 mg HHN BIDRT ANG Stop: 12/15/17 18:59 Last Admin: 10/17/17 07:27 Dose: 0.5 mg Diphenhydramine HCl (Benadryl 50 Mg/Ml) 50 mg IM Q4HR PRN PRN Reason: Agitation Stop: 12/16/17 08:29 Docusate Sodium (Colace) 100 mg PO DAILY ANG Stop: 12/16/17 08:59 Last Admin: 10/17/17 09:36 Dose: 100 mg Donepezil HCl (Aricept) 10 mg GT HS ANG Stop: 12/16/17 20:59 Ferrous Sulfate (Iron) 325 mg PO BID ANG Stop: 12/16/17 08:59 Last Admin: 10/17/17 09:36 Dose: 325 mg Dextrose (D5w) 1,000 mls @ 100 mls/hr IV .Q10H ANG Stop: 12/15/17 14:29 Last Admin: 10/17/17 11:57 Dose: 100 mls/hr Piperacillin Sod/Tazobactam (Sod 2.25 gm/ Sodium Chloride) 50 mls @ 100 mls/hr IV Q6HR ANG Stop: 12/15/17 12:59 Last Admin: 10/17/17 11:59 Dose: 100 mls/hr Lactobacillus Rhamnosus (Culturelle 15b) 1 each GT DAILY ANG Stop: 12/16/17 08:59 Last Admin: 10/17/17 09:36 Dose: 1 each Latanoprost (Xalatan 0.005% Ophth Soln) 1 drop EACH EYE HS ANG Stop: 12/16/17 20:59 Lorazepam (Ativan) 1 mg GT Q6HR PRN; Protocol PRN Reason: Agitation Stop: 12/16/17 08:29 Losartan Potassium (Cozaar) 50 mg GT DAILY ANG Stop: 12/16/17 08:59 Last Admin: 10/17/17 09:37 Dose: Not Given Magnesium Hydroxide (Milk Of Magnesia) 30 ml PO HS PRN PRN Reason: Constipation Stop: 12/16/17 08:29 Memantine (Namenda) 5 mg GT BID ANG Stop: 12/16/17 08:59 Last Admin: 10/17/17 09:36 Dose: 5 mg Mineral Oil (Mineral Oil 30 Ml) 30 ml GT TID ANG Stop: 12/16/17 08:59 Last Admin: 10/17/17 14:20 Dose: 30 ml Miscellaneous (Zosyn Iv Per Pharmacy) 1 ea [facility] PRN PRN PRN Reason: PROTOCOL Stop: 12/15/17 10:42 Multivitamins/Vitamin C (Theragran) 1 tab GT DAILY ANG Stop: 12/16/17 08:59 Last Admin: 10/17/17 09:36 Dose: 1 tab Mupirocin (Bactroban Oint) 1 appl NS BID ANG Stop: 10/22/17 09:01 Olanzapine (Zyprexa) 5 mg GT HS ANG PRN Reason: Protocol Stop: 12/16/17 20:59 Olanzapine (Zyprexa) 2.5 mg GT DAILY ANG PRN Reason: Protocol Stop: 12/16/17 08:59 Sodium Phosphate (Fleet Enema) 135 ml RC DAILY PRN PRN Reason: Constipation Stop: 12/16/17 08:29 Tamsulosin HCl (Flomax) 0.4 mg GT HS ANG Stop: 12/16/17 20:59 Zolpidem Tartrate (Ambien) 5 mg GT HS PRN PRN Reason: Insomnia Stop: 12/16/17 08:29 Lab - Result Diagrams 10/17/17 04:20 10/17/17 04:20 kidney fnc better UOP also improved Na still elevated continue D5W f/u electrolytes, cbc On Zosyn Nutritional Asmnt/Malnutr-PDOC - Dietary Evaluation Malnutrition Findings (Please click <Entered> for more info): Nutritional Asmnt/Malnutrition Start: 10/17/17 14: 29 Text: Status: Active Freq: Document 10/17/17 14:29 JELLY (Rec: 10/17/17 14:49 JELLY [id number]) Nutritional Asmnt/Malnutrition Patient General Information Nutritional Screening High Risk Diagnosis ALOC, LEFT lower lobe PNA, Acute renal insuff Pertinent Medical Hx/Surgical Hx HTN, asthma/COPD, PUD/GERD, s/ p PNA, dysphagia, anemia, BPH, glaucolma, psychosis, insomnia, anxiety, dementia Subjective Information Consult received for wounds. Pt seen resting in bed at time of visit. Pt on NPO, no nutrition support initiated at this time. Current Diet Order/ Nutrition Support NPO Pertinent Medications vit C, D5w, colace, iron, culturelle, theragran, piperacillin Pertinent Labs 10/17 Na 158, K 4.3, Cl 128, BUN 59, Cr 1.4, glucose 121 5/ Na 159, K 4.7, Cl 129, BUN 87, Cr 2.0, glucose 119 Nutritional Hx/Data Height 1.7 m Height (Calculated Centimeters) 170.2 Current Weight (lbs) 58.967 kg Weight (Calculated Kilograms) 59.0 Weight (Calculated Grams) 44880.0 [place] Body Weight 148 Body Mass Index (BMI) 20.3 Weight Status Approriate GI Symptoms GI Symptoms None Last BM none Difficult in: None Usual diet at home glucerna 1.2 at 60ml/hr x 20hr at SNF per chart Skin Integrity/Comment: scar to sacrum, pressure area to right heel, laceration to left hip Current %PO Negligible < 25% Estimated Nutritional Goals BEE in Kcals: Using Current wt Calories/Kcals/Kg 25-30 Kcals Calculated 6954-1378 Protein: Using Current wt Protein g/k.7-0.9 monitor renal labs Protein Calculated 41-53 Fluid: ml per MD Nutritional Problem 1. Problem Problem altered nutrition related labs Etiology electrolytes imbalance, dx of acute renal insuff, endocrine dysfunction Signs/Symptoms: Na 158, Cl 128, BUN 59, Cr 1.4 , glucose 121 Intervention/Recommendation Comments 1. Monitor NPO status. 2. If tube feeding needed, considering elevated BUN/Cr and glucose, recommend Suplena 4 cans daily to provide 1700kcal, 42g protein and 700ml free water, meeting 100% of estimated nutritional needs. 3. Monitor nutrition support, wt daily, skin integrity and labs 3. F/U as high risk in 2-3 days, 10/19-10/20 Expected Outcomes/Goals Expected Outcomes/Goals 1. pt to meet at least 75% of nutritional needs. 2. Wt stability, skin to remain intact, labs to approach WNL.
[2017-10-17] MEDS ORDERED: Enoxaparin Subq per Pharmacy MC SCH (18:30)
[2017-10-17] MEDS ORDERED: Budesonide 0.5 Mg/2 mL Ud HHN SCH (19:00)
[2017-10-17 21:17] LABS: EOSINOPHIL SMEAR SOURCE URINE; EOSINOPHILS SMEAR COUNT NONE SEEN (NONE SEEN)
[2017-10-17] MEDS ORDERED: Enoxaparin 40 mg/0.4 mL 0.4mL Syr SUBQ SCH (21:45)
[2017-10-17] MEDS: Enoxaparin 60 mg/0.6 mL 0.6mL Syr SUBQ SCH (22:32)
--- NOTE | 2017-10-18 01:18 | Psychosocial Evaluation ---
DATE OF SERVICE: 10/17/2017 IDENTIFYING INFORMATION: The patient is an 87-year-old male. HISTORY OF PRESENT ILLNESS: The patient who is a well-known case to me from previous admission as I have been seeing him at [facility]. He presented to the hospital Emergency Room for abnormal lab value and was sent to the hospital for further evaluation. He has a very high sodium level, high potassium level and very high BUN and creatinine level. The patient is with history of hypertension, asthma, COPD, peptic ulcer disease, GERD. Also, he is demented, confused, very poor historian, unable to participate in meaningful conversation or make safe plan for self-care. PAST PSYCHIATRIC HISTORY: Dementia, has been at this facility for a while. MEDICAL HISTORY: Hypertension, COPD, peptic ulcer disease, GERD, status post pneumonia, dysphagia, anemia, benign prostatic hypertrophy, glaucoma with history of anxiety and insomnia. MEDICATIONS: The patient has been on Aricept 10 mg at bedtime, Namenda 5 mg twice a day, Zyprexa 5 mg at bedtime and 2.5 mg in the morning and he is getting his medications through G-tube. He is also on iron for anemia 325 mg twice a day, clonidine 0.1 mg every 8 hours as needed for high blood pressure. He is on ascorbic acid 500 mg daily, Pulmicort inhaler, albuterol inhaler as needed and Benadryl 50 mg every 4 hours as needed with eye drops for glaucoma latanoprost 0.005% one drop in each eye at bedtime, multivitamin 1 tablet daily, antibiotic piperacillin 2.25 g and 50 mL daily, Flomax 0.4 mg daily, Zosyn as needed. FAMILY AND SOCIAL HISTORY: The patient is living in a nursing facility. He is a poor historian, unable to participate in meaningful conversation or tell me anything about his family, but the family has been supportive. MENTAL STATUS EXAMINATION: The patient is appropriately dressed and well groomed. Unable to participate in meaningful conversation or make safe for self-care, unpredictable, impulsive, needing redirection, unable to tell the date, where he is, why he is here, unable to tell if he is hearing voices or seeing things. Insight and judgment is impaired. Impaired long and short-term memory. Nonverbal. IMPRESSION: AXIS I: Psychosis, not otherwise specified, dementia. MEDICAL DIAGNOSES: Chronic kidney disease, chronic obstructive pulmonary disease, gastroesophageal reflux disease without esophagitis, anemia of chronic disease, essential hypertension, benign prostatic hypertrophy, glaucoma, anxiety, insomnia, dysphagia. The patient has NG tube. PLAN: I would recommend to continue medication. I will observe the patient and adjust medication as needed. Thank you very much for allowing me to participate in the care of this most interesting gentleman. JOB# [id number]
--- NOTE | 2017-10-18 03:36 | Progress Notes ---
DATE: 10/17/2017 PULMONARY PROGRESS NOTE PROBLEM LIST: 1. Acute on chronic respiratory failure. 2. Dysphagia, history. 3. Acute on chronic pneumonia. 4. Significant encephalopathic stage. SYMPTOMS: The patient opens eyes, currently on a Venturi mask, no respiratory distress, etc. PHYSICAL EXAMINATION: VITAL SIGNS: The patient is afebrile and the patient's respiration rate is 10-15, pulse is 80. The patient is on a Venturi mask 28%, saturating 95%. NECK: Veins not visualized. CHEST: Shows diminished air entry with occasional secretory noise. ABDOMEN: Soft, nontender. EXTREMITIES: Shows no peripheral edema. LABORATORY DATA: The patient's white count is dropping to 12.7 and hemoglobin is 9.7. ABG, currently on 28% appears to be okay with pO2 84 and pCO2 37. The patient's electrolyte slightly improving in sodium; though, still elevated BUN. ASSESSMENT: The patient is clinically stable, improving respiratory luciano, improving renal function, and dehydration. PLANS AND SUGGESTIONS: We will go ahead and continue current treatment. We will follow through lab and chest x-ray again tomorrow. JOB# [id number]
--- NOTE | 2017-10-18 04:53 | General Progress Note ---
Subjective - Review of Systems Service Date: 10/18/17 Subjective: Patient is more awake and alert but confused. moves upper extremities. Objective - Results Result Diagrams: 10/17/17 04:20 10/17/17 04:20 Recent Labs: Laboratory Last Values WBC 12.7 Th/cmm (4.8-10.8) H 10/17/17 04:20 RBC 3.24 Mil/cmm (3.80-5.80) L 10/17/17 04:20 Hgb 9.7 gm/dL (12-16) L 10/17/17 04:20 Hct 29.1 % (41.0-60) L 10/17/17 04:20 MCV 89.9 fl (80-99) 10/17/17 04:20 MCH 30.0 pg (27.0-31.0) 10/17/17 04:20 MCHC Differential 33.4 pg (28.0-36.0) 10/17/17 04:20 RDW 16.3 % (11.5-20.0) 10/17/17 04:20 Plt Count 259 Th/cmm (150-400) 10/17/17 04:20 MPV 7.2 fl 10/17/17 04:20 Neutrophils % 77.5 % (40.0-80.0) 10/17/17 04:20 Band Neutrophils % 2 % (0-10) 10/16/17 08:15 Lymphocytes % 9.3 % (20.0-50.0) L 10/17/17 04:20 Monocytes % 10.2 % (2.0-10.0) H 10/17/17 04:20 Eosinophils % 2.1 % (0.0-5.0) 10/17/17 04:20 Basophils % 0.9 % (0.0-2.0) 10/17/17 04:20 Neutrophils (Manual) 83 % (40-80) H 10/16/17 08:15 Lymphocytes 6 % (20-50) L 10/16/17 08:15 Monocytes 8 % (2-10) 10/16/17 08:15 Basophils 1 % (0-3) 10/16/17 08:15 Platelet Estimate ADEQUATE (NORMAL) 10/16/17 08:15 Eos Smear Source URINE 10/17/17 17:40 Eos Smear Total Cells NONE SEEN (NONE SEEN) 10/17/17 17:40 PT 12.0 SECONDS (9.5-11.5) H 10/17/17 13:28 INR 1.14 (0.5-1.4) 10/17/17 13:28 PTT (Actin FS) 26.0 SECONDS (26.0-38.0) 10/17/17 13:28 Specimen Source Arterial 10/17/17 09:33 Sample Site Right Radial 10/17/17 09:33 pH 7.40 (7.35-7.45) 10/17/17 09:33 pCO2 37.0 mmHg (35.0-45.0) 10/17/17 09:33 pO2 84.0 mmHg (80.0-100.0) 10/17/17 09:33 HCO3 23.7 mEq/L (20.0-26.0) 10/17/17 09:33 Base Excess -1.6 mEq/L (-3.0-3.0) 10/17/17 09:33 O2 Saturation 96.0 % (92.0-100.0) 10/17/17 09:33 Franki Test YES 10/17/17 09:33 Vent Rate NA 10/17/17 09:33 Inspired O2 28 10/17/17 09:33 Tidal Volume NA 10/17/17 09:33 PEEP NA 10/17/17 09:33 Pressure (ins/psv/peep) NA 10/17/17 09:33 Critical Value E.COOL 10/17/17 09:33 Sodium 158 mEq/L (136-145) H 10/17/17 04:20 Potassium 4.3 mEq/L (3.5-5.1) 10/17/17 04:20 Chloride 128 mEq/L (98-107) H 10/17/17 04:20 Carbon Dioxide 23.7 mEq/L (21.0-31.0) 10/17/17 04:20 Anion Gap 10.6 (7.0-16.0) 10/17/17 04:20 BUN 59 mg/dL (7-25) H 10/17/17 04:20 Creatinine 1.4 mg/dL (0.7-1.3) H 10/17/17 04:20 Est GFR ( Amer) TNP 10/17/17 04:20 Est GFR (Non-Af Amer) TNP 10/17/17 04:20 BUN/Creatinine Ratio 42.1 10/17/17 04:20 Glucose 121 mg/dL (70-105) H 10/17/17 04:20 Whole Bld Lactic Acid 1.47 mmol/L (0.60-1.99) 10/16/17 08:15 Uric Acid 3.7 mg/dL (4.4-7.6) L 10/17/17 04:20 Calcium 9.1 mg/dL (8.6-10.3) 10/17/17 04:20 Phosphorus 3.1 mg/dL (2.5-5.0) 10/17/17 04:20 Magnesium 1.9 mg/dL (1.9-2.7) 10/17/17 04:20 Total Bilirubin 0.5 mg/dL (0.3-1.0) 10/17/17 04:20 AST 20 U/L (13-39) 10/17/17 04:20 ALT 18 U/L (7-52) 10/17/17 04:20 Alkaline Phosphatase 107 U/L (34-104) H 10/17/17 04:20 Ammonia 43 umol/L (16-53) 10/17/17 04:20 B-Natriuretic Peptide 83.6 pg/mL (5.0-100.0) 10/16/17 08:15 Total Protein 5.3 gm/dL (6.0-8.3) L 10/17/17 04:20 Albumin 2.6 gm/dL (4.2-5.5) L 10/17/17 04:20 Globulin 2.7 gm/dL 10/17/17 04:20 Albumin/Globulin Ratio 1.0 (1.0-1.8) 10/17/17 04:20 Urine Source MANJARREZ PORT 10/16/17 09:00 Urine Color YELLOW 10/16/17 09:00 Urine Clarity HAZY (CLEAR) 10/16/17 09:00 Urine pH 8.5 (4.6 - 8.0) 10/16/17 09:00 Ur Specific Boon <= 1.005 (1.005-1.030) 10/16/17 09:00 Urine Protein >=300 mg/dL (NEGATIVE) 10/16/17 09:00 Urine Glucose (UA) NEGATIVE mg/dL (NEGATIVE) 10/16/17 09:00 Urine Ketones NEGATIVE mg/dL (NEGATIVE) 10/16/17 09:00 Urine Blood SMALL (NEGATIVE) H 10/16/17 09:00 Urine Nitrate NEGATIVE (NEGATIVE) 10/16/17 09:00 Urine Bilirubin NEGATIVE (NEGATIVE) 10/16/17 09:00 Urine Urobilinogen 0.2 E.U./dL (0.2 - 1.0) 10/16/17 09:00 Ur Leukocyte Esterase MODERATE (NEGATIVE) H 10/16/17 09:00 Urine RBC 2-5 /hpf (0-5) H 10/16/17 09:00 Urine WBC 6-10 /hpf (0-5) 10/16/17 09:00 Ur Epithelial Cells FEW /lpf (FEW) 10/16/17 09:00 Triple Phos Crystals MANY /hpf (FEW) 10/16/17 09:00 Urine Bacteria MODERATE /hpf (NONE SEEN) H 10/16/17 09:00 Ur Random Sodium 88 mmol/L 10/17/17 17:40 Urine Creatinine 39.0 mg/dl (39.0-259.0) 10/17/17 17:40 Urine Microalbumin 116 10/16/17 09:00 Microalb/Creat Ratio 299.7 10/16/17 09:00 - Physical Exam Vitals and I&O: Vital Signs Temp 99.8 F 10/18/17 00:00 Pulse 84 10/18/17 03:00 Resp 16 10/18/17 03:00 BP 93/34 10/18/17 03:00 Pulse Ox 96 10/18/17 03:00 Intake & Output 10/17/17 10/17/17 10/18/17 06:59 18:59 06:59 Intake Total 383.929 4757.000 1540 Output Total 850 650 Balance -66.667 1150.000 890 Weight (lbs) 58.831 kg 58.513 kg Intake: Intake, IV Amount 333.831 9614.000 1000 Dextrose 5% 1,000 ml @ 812.582 9051.000 1000 100 mls/hr IV .Q10H [facility] Rx#:[id number] Piperacillin Sodium/ 100 Tazobact 2.25 gm In Sodium Chloride 0.9% 50 ml @ 100 mls/hr IV Q6HR [facility] Rx#:[id number] Piperacillin Sodium/ 50 50 Tazobact 2.25 gm In Sodium Chloride 0.9% 50 ml @ 100 mls/hr IV Q8HR [facility] Rx#:[id number] Tube Feeding 300 Other 240 Output: Urine 850 650 Other: # Bowel Movements 0 Weight Source Bedscale Bedscale Active Medications: Current Medications Acetaminophen (Tylenol) 650 mg GT Q4H PRN PRN Reason: Mild pain, temp above 100 Stop: 12/16/17 08:29 Al Hydrox/Mg Hydrox/Simethicone (Maalox) 30 ml GT Q4HR PRN PRN Reason: GI distress Stop: 12/16/17 08:29 Albuterol/Ipratropium (Duoneb Neb) 3 ml HHN [id number] [facility] Stop: 12/15/17 14:59 Last Admin: 10/17/17 19:02 Dose: 3 ml Albuterol/Ipratropium (Duoneb Neb) 3 ml HHN Q4H PRN PRN Reason: Wheezing Stop: 12/16/17 08:29 Amlodipine Besylate (Norvasc) 5 mg GT DAILY [facility] Stop: 12/16/17 08:59 Last Admin: 10/17/17 09:37 Dose: Not Given Ascorbic Acid (Vitamin C) 500 mg GT DAILY [facility] Stop: 12/16/17 08:59 Last Admin: 10/17/17 09:36 Dose: 500 mg Bisacodyl (Dulcolax 10 Mg Supp) 10 mg RC DAILY PRN PRN Reason: Constipation Stop: 12/16/17 08:29 Budesonide (Pulmicort) 0.5 mg HHN BIDRT [facility] Stop: 12/15/17 18:59 Last Admin: 10/17/17 19:02 Dose: 0.5 mg Diphenhydramine HCl (Benadryl 50 Mg/Ml) 50 mg IM Q4HR PRN PRN Reason: Agitation Stop: 12/16/17 08:29 Docusate Sodium (Colace) 100 mg PO DAILY [facility] Stop: 12/16/17 08:59 Last Admin: 10/17/17 09:36 Dose: 100 mg Donepezil HCl (Aricept) 10 mg GT HS [facility] Stop: 12/16/17 20:59 Last Admin: 10/17/17 21:38 Dose: 10 mg Enoxaparin Sodium (Lovenox) 60 mg SUBQ Q12H ANG Stop: 12/16/17 21:44 Last Admin: 10/17/17 22:32 Dose: 60 mg Ferrous Sulfate (Iron) 325 mg PO BID ANG Stop: 12/16/17 08:59 Last Admin: 10/17/17 17:21 Dose: 325 mg Dextrose (D5w) 1,000 mls @ 100 mls/hr IV .Q10H ANG Stop: 12/15/17 14:29 Last Admin: 10/17/17 22:30 Dose: 100 mls/hr Piperacillin Sod/Tazobactam (Sod 2.25 gm/ Sodium Chloride) 50 mls @ 100 mls/hr IV Q6HR ANG Stop: 12/15/17 12:59 Last Admin: 10/17/17 23:33 Dose: 100 mls/hr Lactobacillus Rhamnosus (Culturelle 15b) 1 each GT DAILY ANG Stop: 12/16/17 08:59 Last Admin: 10/17/17 09:36 Dose: 1 each Latanoprost (Xalatan 0.005% Ophth Soln) 1 drop EACH EYE HS ANG Stop: 12/16/17 20:59 Last Admin: 10/17/17 21:38 Dose: 1 drop Lorazepam (Ativan) 1 mg GT Q6HR PRN; Protocol PRN Reason: Agitation Stop: 12/16/17 08:29 Losartan Potassium (Cozaar) 50 mg GT DAILY ANG Stop: 12/16/17 08:59 Last Admin: 10/17/17 09:37 Dose: Not Given Magnesium Hydroxide (Milk Of Magnesia) 30 ml PO HS PRN PRN Reason: Constipation Stop: 12/16/17 08:29 Memantine (Namenda) 5 mg GT BID ANG Stop: 12/16/17 08:59 Last Admin: 10/17/17 17:21 Dose: 5 mg Mineral Oil (Mineral Oil 30 Ml) 30 ml GT TID ANG Stop: 12/16/17 08:59 Last Admin: 10/17/17 21:38 Dose: 30 ml Miscellaneous (Zosyn Iv Per Pharmacy) 1 ea MC PRN PRN PRN Reason: PROTOCOL Stop: 12/15/17 10:42 Multivitamins/Vitamin C (Theragran) 1 tab GT DAILY ANG Stop: 12/16/17 08:59 Last Admin: 10/17/17 09:36 Dose: 1 tab Mupirocin (Bactroban Oint) 1 appl NS BID ANG Stop: 10/22/17 09:01 Last Admin: 10/17/17 17:22 Dose: 1 appl Olanzapine (Zyprexa) 5 mg GT HS ANG PRN Reason: Protocol Stop: 12/16/17 20:59 Olanzapine (Zyprexa) 2.5 mg GT DAILY ANG PRN Reason: Protocol Stop: 12/16/17 08:59 Sodium Phosphate (Fleet Enema) 135 ml RC DAILY PRN PRN Reason: Constipation Stop: 12/16/17 08:29 Tamsulosin HCl (Flomax) 0.4 mg GT HS ANG Stop: 12/16/17 20:59 Last Admin: 10/17/17 21:38 Dose: 0.4 mg Zolpidem Tartrate (Ambien) 5 mg GT HS PRN PRN Reason: Insomnia Stop: 12/16/17 08:29 General: Alert, No acute distress, Other (confused) HEENT: Atraumatic, PERRLA, EOMI Neck: Supple, no JVD, no Thyromegaly Cardiovascular: Regular rate, Normal S1, Normal S2 Lungs: Other (decreased breath sounds, few rhonchi) Abdomen: Bowel sounds, Soft Extremities: Edema (right lower extremity,erythema), no Clubbing, no Cyanosis - Procedures Procedures: Procedures Procedure Code Date EGD ENDO MUCOSAL RESECTION 80453 09/08/[address] GASTROSTOMY TUBE 44766 09/08/17 EXCISION OF STOMACH, ENDO, DIAGN [id number] 09/08/17 INSERTION OF FEEDING DEVICE INTO STOMACH, PERC APPROACH [id number] 09/08/17 INTRODUCTION OF SERUM/TOX/VACCINE INTO MUSCLE, PERC APPROACH [id number] 09/08/17 Assessment/Plan - Assessment Assessment: ALOC Metabolic Encephalopathy Sepsis Anemia Hypernatremia improving Acute Renal Insufficiency improving GIANNI PNA HTN Asthma COPD PUD GERD s/p gastrostomy tube placement dysphagia benign prostatic hypertrophy glaucoma psychosis insomnia anxiety DVT to LE Enlarge Prostate Right Sided Hydronephrosis - Plan Plan: Admit to ICU Pulmonary consult Dr Raisa Katz Nephrology consult Dr. Morales Neurology consult Dr. Kundi IV hydration IV Zosyn repeat CBC,CMP tomorrow blood culture x2 urine culture x2 sputum culture x2 PSA Chest Xray CBC, CMP Lovenox SQ Nutritional Asmnt/Malnutr-PDOC - Dietary Evaluation Malnutrition Findings (Please click <Entered> for more info): Nutritional Asmnt/Malnutrition Start: 10/17/17 14: 29 Text: Status: Complete Freq: Document 10/17/17 14:29 HEN (Rec: 10/17/17 14:49 LCHENG [id number]) Nutritional Asmnt/Malnutrition Patient General Information Nutritional Screening High Risk Diagnosis ALOC, LEFT lower lobe PNA, Acute renal insuff Pertinent Medical Hx/Surgical Hx HTN, asthma/COPD, PUD/GERD, s/ p PNA, dysphagia, anemia, BPH, glaucolma, psychosis, insomnia, anxiety, dementia Subjective Information Consult received for wounds. Pt seen resting in bed at time of visit. Pt on NPO, TF not initiated at this time. Current Diet Order/ Nutrition Support Diabetisource AC 60ml/hr x 20hr Pertinent Medications vit C, D5w, colace, iron, culturelle, theragran, piperacillin Pertinent Labs 5/4 Na 158, K 4.3, Cl 128, BUN 59, Cr 1.4, glucose 121 5/3 Na 159, K 4.7, Cl 129, BUN 87, Cr 2.0, glucose 119 Nutritional Hx/Data Height 1.7 m Height (Calculated Centimeters) 170.2 Current Weight (lbs) 58.967 kg Weight (Calculated Kilograms) 59.0 Weight (Calculated Grams) 26311.0 [place] Body Weight 148 Body Mass Index (BMI) 20.3 Weight Status Approriate GI Symptoms GI Symptoms None Last BM none Difficult in: None Usual diet at home glucerna 1.2 at 60ml/hr x 20hr at SNF per chart Skin Integrity/Comment: scar to sacrum, pressure area to right heel, laceration to left hip non-pitting to left lower extremity and left foot, pitting 1+ to right lower extremity and right foot. Current %PO Negligible < 25% Estimated Nutritional Goals BEE in Kcals: Using Current wt Calories/Kcals/Kg 25-30 Kcals Calculated 1434-7347 Protein: Using Current wt Protein g/k-1.2 monitor renal labs Protein Calculated 59-71 Fluid: ml per MD Nutritional Problem 1. Problem Problem altered nutrition related labs Etiology electrolytes imbalance, dx of acute renal insuff, endocrine dysfunction Signs/Symptoms: Na 158, Cl 128, BUN 59, Cr 1.4 , glucose 121 Intervention/Recommendation Comments 1. Start TF as ordered. It will provide 1440kcal and 72g protein, meeting 100% of nutritional needs. 3. Monitor TF tolerance, wt daily, skin integrity and labs 3. F/U as high risk in 2-3 days, 10/19-10/20 Expected Outcomes/Goals Expected Outcomes/Goals 1. pt to meet at least 75% of nutritional needs. 2. Wt stability, skin to remain intact, labs to approach WNL.
[2017-10-18 05:02] LABS: % BASOPHILS 1.4 % (0.0-2.0); % EOSINOPHILS 2.8 % (0.0-5.0); % LYMPHOCYTES 10.2 % (20.0-50.0); % MONOCYTES 9.9 % (2.0-10.0); % NEUTROPHILS 75.7 % (40.0-80.0); BASOPHILE ABSOLUTE 0.2 Th/cumm (0-0.2); EOSINOPHILE ABSOLUTE 0.3 Th/cmm (0.1-0.4); HEMATOCRIT 28.5 % (41.0-60); HEMOGLOBIN 9.5 gm/dL (12-16); LYMPHOCYTE ABSOLUTE 1.2 Th/cmm (1.5-3.0); MEAN CELL VOLUME 88.9 fl (80-99); MEAN CORPUSCULAR HEMOGLOBIN 29.6 pg (27.0-31.0); MEAN CORPUSCULAR HGB CONC 33.3 pg (28.0-36.0); MEAN PLATELET VOLUME 7.7 fl; MONOCYTE ABSOLUTE 1.2 Th/cmm (0.3-1.0); NEUTROPHILE ABSOLUTE 8.8 Th/cmm (1.8-8.0); PLATELET COUNT 248 Th/cmm (150-400); RED BLOOD COUNT 3.21 Mil/cmm (3.80-5.80); RED CELL DISTRIBUTION WIDTH 15.7 % (11.5-20.0); WHITE BLOOD COUNT 11.7 Th/cmm (4.8-10.8)
[2017-10-18] MEDS: Piperacillin/Tazobact 2.25 gm in 0.9% NS 50 ML IV SCH ×4 (05:43→23:52)
[2017-10-18 05:46] LABS: ALB/GLOB RATIO 0.9 (1.0-1.8); ALBUMIN 2.3 gm/dL (4.2-5.5); ALKALINE PHOSPHATASE 144 U/L (34-104); ANION GAP 10.5 (7.0-16.0); BILIRUBIN,TOTAL 0.3 mg/dL (0.3-1.0); BUN - UREA NITROGEN 49 mg/dL (7-25); CALCIUM SERUM 8.7 mg/dL (8.6-10.3); CARBON DIOXIDE 21.9 mEq/L (21.0-31.0); CHLORIDE 120 mEq/L (98-107); CREATININE - SERUM 1.1 mg/dL (0.7-1.3); GLUCOSE 141 mg/dL (70-105); POTASSIUM SERUM 3.4 mEq/L (3.5-5.1); SGOT 33 U/L (13-39); SGPT/ALT 30 U/L (7-52); SODIUM SERUM 149 mEq/L (136-145); TOTAL PROTEIN,SERUM 4.9 gm/dL (6.0-8.3)
[2017-10-18] MEDS: Albuterol/Ipratropium Neb 3 ML AERS HHN SCH ×4 (08:00→19:52)
[2017-10-18] MEDS: Budesonide 0.5 Mg/2 mL Ud HHN SCH ×2 (08:01→19:52)
[2017-10-18] MEDS: Multivitamin Tab GT SCH (08:27)
[2017-10-18] MEDS: Lactobacillus Rhamnosus GG 15 Billion CFU CAP.SPRINK GT SCH (08:27)
[2017-10-18] MEDS: Ferrous Sulfate 325 MG TAB PO SCH ×2 (08:28→17:20)
--- NOTE | 2017-10-18 08:49 | Diagnostic Imaging Report ---
Portable chest x-ray HISTORY: Shortness of breath Compared with prior exam October 17, 2017, no change in bilateral lower lobe interstitial infiltrates (left greater than right). Findings correspond to chronic changes noted on the earlier CT scan of September 18, 2017. The heart size appears somewhat generous. No evidence of free pleural fluid. Pleural thickening noted about the left costophrenic angle. IMPRESSION: 1. Chronic bilateral predominantly lower lobe pulmonary infiltrates (left greater than right). The findings correspond to the CT documented changes of September 18, 2017. Superimposed pneumonia cannot be excluded. Clinical correlation is needed.
[2017-10-18] MEDS: Enoxaparin 60 mg/0.6 mL 0.6mL Syr SUBQ SCH (09:49)
[2017-10-18] MEDS ORDERED: Potassium Chloride Elixir 20 mEq /15 mL UDC GT ONE (16:24)
[2017-10-18] MEDS ORDERED: Potassium Chloride Elixir 20 mEq /15 mL UDC GT SCH (16:30)
[2017-10-18] MEDS: Enoxaparin 30 mg/0.3 mL 0.3mL Syr SUBQ SCH (17:20)
[2017-10-18] MEDS ORDERED: Enoxaparin 30 mg/0.3 mL 0.3mL Syr SUBQ SCH (20:00)
[2017-10-18] MEDS: Dextrose 5% 1,000 ML IV SCH (22:41)
--- NOTE | 2017-10-18 23:08 | Consultation ---
DATE OF CONSULTATION: 10/18/2017 NEUROLOGY CONSULT The patient is an 87-year-old admitted from SNF. The patient apparently was altered. Also, noted to have abnormal labs. His sodium was 157, BUN 118, creatinine 4.0 and potassium 3.8. These have been improved. The patient seemed to be more alert, though still limited interaction. His baseline is ____ probably mainly in the bed. The patient has dysphagia, had a G-tube. The patient is unclear whether he had previous strokes or not. PAST MEDICAL HISTORY: Includes asthma, hypertension. The patient with dementia. Psychosis. Glaucoma. MEDICATIONS: As per reconciliation. REVIEW OF SYSTEMS: Twelve point negative except for above. PHYSICAL EXAMINATION: VITAL SIGNS: Temperature 98.4, blood pressure 110/66, pulse is 84. NECK: Supple, no bruits. HEART: Sounds S1, S2. LUNGS: Clear. NEUROLOGIC: The patient is lying in bed. Spontaneous respiration. Eyes closed. Limited interaction, but when stimulating the patient does seem to get ____. The patient will withdraw upper extremity. I do not get much more in the lower extremity, increased tone with a kind of combination of rigidity and spasticity. The patient has a G-tube. Reflexes about 1, difficult to get in the lower extremity. INVESTIGATIONS: No CT scan done. LABORATORY DATA: Admission labs noted above. Currently, the patient's WBC 11.7, hemoglobin 9.5. Sodium is 149, potassium is down to 3.4 now, BUN has gone down to 49, creatinine 1.1. IMPRESSION: 1. Encephalopathy, metabolic. 2. Underlying probably dementia. 3. Dysphagia. 4. Anemia. 5. Renal failure, better. 6. Pneumonia. 7. Hypertension. 8. Psychosis. PLAN: Continue present treatment. JOB# [id number]
--- NOTE | 2017-10-19 00:34 | Progress Notes ---
DATE: 10/18/2017 PROBLEM LIST: 1. Alzheimer's. 2. Acute on chronic pneumonitis. SYMPTOMS: Nil. The patient is breathing okay, saturating okay. No respiratory distress, etc. PHYSICAL EXAMINATION: VITAL SIGNS: The patient is afebrile, respiration is 18, saturation 98% on room air. NECK: Veins not visualized. CHEST: Shows occasional rales with diminished air entry, mostly in the left base. HEART: Regular. ABDOMEN: Soft, nontender. LABORATORY DATA: The patient's white count is trending down 11.7. Chest x-ray shows still patchy infiltrate in the left base. I believe a lot of them could be possibly from chronic. PLANS AND SUGGESTIONS: Okay to bring the patient to Step Down Unit and care and plan discussed with nursing staff. JOB# [id number]
[2017-10-19] MEDS: Piperacillin/Tazobact 2.25 gm in 0.9% NS 50 ML IV SCH ×3 (05:12→17:08)
[2017-10-19] MEDS: Enoxaparin 30 mg/0.3 mL 0.3mL Syr SUBQ SCH ×2 (05:19→17:06)
[2017-10-19 07:30] LABS: % EOSINOPHILS 3.6 % (0.0-5.0); % LYMPHOCYTES 15.6 % (20.0-50.0); % NEUTROPHILS 70.8 % (40.0-80.0); BASOPHILE ABSOLUTE 0.1 Th/cumm (0-0.2); EOSINOPHILE ABSOLUTE 0.4 Th/cmm (0.1-0.4); HEMOGLOBIN 9.4 gm/dL (12-16); LYMPHOCYTE ABSOLUTE 1.9 Th/cmm (1.5-3.0); MEAN CELL VOLUME 88.3 fl (80-99); MEAN CORPUSCULAR HEMOGLOBIN 29.7 pg (27.0-31.0); MEAN CORPUSCULAR HGB CONC 33.6 pg (28.0-36.0); MEAN PLATELET VOLUME 7.5 fl; MONOCYTE ABSOLUTE 1.1 Th/cmm (0.3-1.0); NEUTROPHILE ABSOLUTE 8.9 Th/cmm (1.8-8.0); PLATELET COUNT 268 Th/cmm (150-400); RED BLOOD COUNT 3.17 Mil/cmm (3.80-5.80); RED CELL DISTRIBUTION WIDTH 14.9 % (11.5-20.0)
[2017-10-19 07:43] LABS: WHITE BLOOD COUNT 12.4 Th/cmm (4.8-10.8)
[2017-10-19] MEDS: Budesonide 0.5 Mg/2 mL Ud HHN SCH ×2 (07:44→19:20)
[2017-10-19] MEDS: Albuterol/Ipratropium Neb 3 ML AERS HHN SCH ×4 (07:44→19:20)
[2017-10-19 07:59] LABS: ANION GAP 8.2 (7.0-16.0); BUN - UREA NITROGEN 40 mg/dL (7-25); CALCIUM SERUM 8.4 mg/dL (8.6-10.3); CARBON DIOXIDE 26.5 mEq/L (21.0-31.0); CHLORIDE 112 mEq/L (98-107); GLUCOSE 114 mg/dL (70-105); POTASSIUM SERUM 3.7 mEq/L (3.5-5.1); SODIUM SERUM 143 mEq/L (136-145)
[2017-10-19] MEDS: Multivitamin Tab GT SCH (09:31)
[2017-10-19] MEDS: Ferrous Sulfate 325 MG TAB PO SCH ×2 (09:31→17:06)
[2017-10-19] MEDS: Lactobacillus Rhamnosus GG 15 Billion CFU CAP.SPRINK GT SCH (09:31)
[2017-10-19] MEDS: Dextrose 5% 1,000 ML IV SCH ×2 (09:31→10:56)
[2017-10-19] MEDS ORDERED: Potassium Chloride Elixir 20 mEq /15 mL UDC GT ONE (10:00)
--- NOTE | 2017-10-19 10:05 | General Progress Note ---
Subjective - Review of Systems Service Date: 10/19/17 Subjective: Patient is more awake and alert but confused. Patient less congested now. productive sputum. L LE DVT noted on Venous Doppler US now on Lovenox SQ Objective - Results Result Diagrams: 10/19/17 06:59 10/19/17 06:59 Recent Labs: Laboratory Last Values WBC 12.4 Th/cmm (4.8-10.8) H 10/19/17 06:59 RBC 3.17 Mil/cmm (3.80-5.80) L 10/19/17 06:59 Hgb 9.4 gm/dL (12-16) L 10/19/17 06:59 Hct 28.0 % (41.0-60) L 10/19/17 06:59 MCV 88.3 fl (80-99) 10/19/17 06:59 MCH 29.7 pg (27.0-31.0) 10/19/17 06:59 MCHC Differential 33.6 pg (28.0-36.0) 10/19/17 06:59 RDW 14.9 % (11.5-20.0) 10/19/17 06:59 Plt Count 268 Th/cmm (150-400) 10/19/17 06:59 MPV 7.5 fl 10/19/17 06:59 Neutrophils % 70.8 % (40.0-80.0) 10/19/17 06:59 Band Neutrophils % 2 % (0-10) 10/16/17 08:15 Lymphocytes % 15.6 % (20.0-50.0) L 10/19/17 06:59 Monocytes % 9.0 % (2.0-10.0) 10/19/17 06:59 Eosinophils % 3.6 % (0.0-5.0) 10/19/17 06:59 Basophils % 1.0 % (0.0-2.0) 10/19/17 06:59 Neutrophils (Manual) 83 % (40-80) H 10/16/17 08:15 Lymphocytes 6 % (20-50) L 10/16/17 08:15 Monocytes 8 % (2-10) 10/16/17 08:15 Basophils 1 % (0-3) 10/16/17 08:15 Platelet Estimate ADEQUATE (NORMAL) 10/16/17 08:15 Eos Smear Source URINE 10/17/17 17:40 Eos Smear Total Cells NONE SEEN (NONE SEEN) 10/17/17 17:40 PT 12.0 SECONDS (9.5-11.5) H 10/17/17 13:28 INR 1.14 (0.5-1.4) 10/17/17 13:28 PTT (Actin FS) 26.0 SECONDS (26.0-38.0) 10/17/17 13:28 Specimen Source Arterial 10/17/17 09:33 Sample Site Right Radial 10/17/17 09:33 pH 7.40 (7.35-7.45) 10/17/17 09:33 pCO2 37.0 mmHg (35.0-45.0) 10/17/17 09:33 pO2 84.0 mmHg (80.0-100.0) 10/17/17 09:33 HCO3 23.7 mEq/L (20.0-26.0) 10/17/17 09:33 Base Excess -1.6 mEq/L (-3.0-3.0) 10/17/17 09:33 O2 Saturation 96.0 % (92.0-100.0) 10/17/17 09:33 Franki Test YES 10/17/17 09:33 Vent Rate NA 10/17/17 09:33 Inspired O2 28 10/17/17 09:33 Tidal Volume NA 10/17/17 09:33 PEEP NA 10/17/17 09:33 Pressure (ins/psv/peep) NA 10/17/17 09:33 Critical Value E.COOL 10/17/17 09:33 Sodium 143 mEq/L (136-145) 10/19/17 06:59 Potassium 3.7 mEq/L (3.5-5.1) 10/19/17 06:59 Chloride 112 mEq/L (98-107) H 10/19/17 06:59 Carbon Dioxide 26.5 mEq/L (21.0-31.0) 10/19/17 06:59 Anion Gap 8.2 (7.0-16.0) 10/19/17 06:59 BUN 40 mg/dL (7-25) H 10/19/17 06:59 Creatinine 1.0 mg/dL (0.7-1.3) 10/19/17 06:59 Est GFR ( Amer) TNP 10/19/17 06:59 Est GFR (Non-Af Amer) TNP 10/19/17 06:59 BUN/Creatinine Ratio 40.0 10/19/17 06:59 Glucose 114 mg/dL (70-105) H 10/19/17 06:59 Whole Bld Lactic Acid 1.47 mmol/L (0.60-1.99) 10/16/17 08:15 Uric Acid 3.7 mg/dL (4.4-7.6) L 10/17/17 04:20 Calcium 8.4 mg/dL (8.6-10.3) L 10/19/17 06:59 Phosphorus 3.1 mg/dL (2.5-5.0) 10/17/17 04:20 Magnesium 1.9 mg/dL (1.9-2.7) 10/17/17 04:20 Total Bilirubin 0.3 mg/dL (0.3-1.0) 10/18/17 04:25 AST 33 U/L (13-39) 10/18/17 04:25 ALT 30 U/L (7-52) 10/18/17 04:25 Alkaline Phosphatase 144 U/L (34-104) H 10/18/17 04:25 Ammonia 43 umol/L (16-53) 10/17/17 04:20 B-Natriuretic Peptide 83.6 pg/mL (5.0-100.0) 10/16/17 08:15 Total Protein 4.9 gm/dL (6.0-8.3) L 10/18/17 04:25 Albumin 2.3 gm/dL (4.2-5.5) L 10/18/17 04:25 Globulin 2.6 gm/dL 10/18/17 04:25 Albumin/Globulin Ratio 0.9 (1.0-1.8) L 10/18/17 04:25 Urine Source [place]AR[place] 10/16/17 09:00 Urine Color YELLOW 10/16/17 09:00 Urine Clarity HAZY (CLEAR) 10/16/17 09:00 Urine pH 8.5 (4.6 - 8.0) 10/16/17 09:00 Ur Specific [place] <= 1.005 (1.005-1.030) 10/16/17 09:00 Urine Protein >=300 mg/dL (NEGATIVE) 10/16/17 09:00 Urine Glucose (UA) NEGATIVE mg/dL (NEGATIVE) 10/16/17 09:00 Urine Ketones NEGATIVE mg/dL (NEGATIVE) 10/16/17 09:00 Urine Blood SMALL (NEGATIVE) H 10/16/17 09:00 Urine Nitrate NEGATIVE (NEGATIVE) 10/16/17 09:00 Urine Bilirubin NEGATIVE (NEGATIVE) 10/16/17 09:00 Urine Urobilinogen 0.2 E.U./dL (0.2 - 1.0) 10/16/17 09:00 Ur Leukocyte Esterase MODERATE (NEGATIVE) H 10/16/17 09:00 Urine RBC 2-5 /hpf (0-5) H 10/16/17 09:00 Urine WBC 6-10 /hpf (0-5) 10/16/17 09:00 Ur Epithelial Cells FEW /lpf (FEW) 10/16/17 09:00 Triple Phos Crystals MANY /hpf (FEW) 10/16/17 09:00 Urine Bacteria MODERATE /hpf (NONE SEEN) H 10/16/17 09:00 Ur Random Sodium 88 mmol/L 10/17/17 17:40 Urine Creatinine 39.0 mg/dl (39.0-259.0) 10/17/17 17:40 Urine Microalbumin 116 10/16/17 09:00 Microalb/Creat Ratio 299.7 10/16/17 09:00 - Physical Exam Vitals and I&O: Vital Signs Temp 99.2 F 10/19/17 04:00 Pulse 76 10/19/17 09:31 Resp 18 10/19/17 08:19 BP 124/55 10/19/17 09:31 Pulse Ox 99 10/19/17 07:47 Intake & Output 10/18/17 10/19/17 10/19/17 18:59 06:59 18:59 Intake Total 100 5043.026 5381 Output Total 2400 Balance 100 -729.550 3460 Weight (lbs) 61.689 kg Intake: Intake, IV Amount 100 717.986 5181 Dextrose 5% 1,000 ml @ 397.949 7860 100 mls/hr IV .Q10H [facility] Rx#:[id number] Piperacillin Sodium/ 100 50 Tazobact 2.25 gm In Sodium Chloride 0.9% 50 ml @ 100 mls/hr IV Q6HR [facility] Rx#:[id number] Tube Feeding 1440 Other 200 Output: Urine 2400 Other: # Bowel Movements 1 Stool Characteristics Soft Weight Source Bedscale Active Medications: Current Medications Acetaminophen (Tylenol) 650 mg GT Q4H PRN PRN Reason: Mild pain, temp above 100 Stop: 12/16/17 08:29 Al Hydrox/Mg Hydrox/Simethicone (Maalox) 30 ml GT Q4HR PRN PRN Reason: GI distress Stop: 12/16/17 08:29 Albuterol/Ipratropium (Duoneb Neb) 3 ml HHN [id number] [facility] Stop: 12/15/17 14:59 Last Admin: 10/19/17 07:44 Dose: 3 ml Albuterol/Ipratropium (Duoneb Neb) 3 ml HHN Q4H PRN PRN Reason: Wheezing Stop: 12/16/17 08:29 Amlodipine Besylate (Norvasc) 5 mg GT DAILY [facility] Stop: 12/16/17 08:59 Last Admin: 10/19/17 09:31 Dose: 5 mg Ascorbic Acid (Vitamin C) 500 mg GT DAILY [facility] Stop: 12/16/17 08:59 Last Admin: 10/19/17 09:31 Dose: 500 mg Bisacodyl (Dulcolax 10 Mg Supp) 10 mg RC DAILY PRN PRN Reason: Constipation Stop: 12/16/17 08:29 Budesonide (Pulmicort) 0.5 mg HHN BIDRT [facility] Stop: 12/15/17 18:59 Last Admin: 10/19/17 07:44 Dose: 0.5 mg Diphenhydramine HCl (Benadryl 50 Mg/Ml) 50 mg IM Q4HR PRN PRN Reason: Agitation Stop: 12/16/17 08:29 Docusate Sodium (Colace) 100 mg PO DAILY [facility] Stop: 12/16/17 08:59 Last Admin: 10/19/17 09:31 Dose: 100 mg Donepezil HCl (Aricept) 10 mg GT HS [facility] Stop: 12/16/17 20:59 Last Admin: 10/18/17 21:24 Dose: 10 mg Enoxaparin Sodium (Lovenox) 30 mg SUBQ Q12H ANG Stop: 12/17/17 16:19 Last Admin: 10/19/17 05:19 Dose: 30 mg Ferrous Sulfate (Iron) 325 mg PO BID ANG Stop: 12/16/17 08:59 Last Admin: 10/19/17 09:31 Dose: 325 mg Dextrose (D5w) 1,000 mls @ 100 mls/hr IV .Q10H ANG Stop: 12/15/17 14:29 Last Admin: 10/19/17 09:31 Dose: 100 mls/hr Piperacillin Sod/Tazobactam (Sod 2.25 gm/ Sodium Chloride) 50 mls @ 100 mls/hr IV Q6HR ANG Stop: 12/15/17 12:59 Last Admin: 10/19/17 05:12 Dose: 100 mls/hr Lactobacillus Rhamnosus (Culturelle 15b) 1 each GT DAILY ANG Stop: 12/16/17 08:59 Last Admin: 10/19/17 09:31 Dose: 1 each Latanoprost (Xalatan 0.005% Oph Soln) 1 drop EACH EYE HS ANG Stop: 12/16/17 20:59 Last Admin: 10/18/17 21:24 Dose: 1 drop Lorazepam (Ativan) 1 mg GT Q6HR PRN; Protocol PRN Reason: Agitation Stop: 12/16/17 08:29 Losartan Potassium (Cozaar) 50 mg GT DAILY ANG Stop: 12/16/17 08:59 Last Admin: 10/18/17 11:37 Dose: Not Given Magnesium Hydroxide (Milk Of Magnesia) 30 ml PO HS PRN PRN Reason: Constipation Stop: 12/16/17 08:29 Memantine (Namenda) 5 mg GT BID ANG Stop: 12/16/17 08:59 Last Admin: 10/19/17 09:31 Dose: 5 mg Mineral Oil (Mineral Oil 30 Ml) 30 ml GT TID ANG Stop: 12/16/17 08:59 Last Admin: 10/19/17 09:31 Dose: 30 ml Miscellaneous (Zosyn Iv Per Pharmacy) 1 ea MC PRN PRN PRN Reason: PROTOCOL Stop: 12/15/17 10:42 Multivitamins/Vitamin C (Theragran) 1 tab GT DAILY ANG Stop: 12/16/17 08:59 Last Admin: 10/19/17 09:31 Dose: 1 tab Mupirocin (Bactroban Oint) 1 appl NS BID ANG Stop: 10/22/17 09:01 Last Admin: 10/19/17 09:31 Dose: 1 appl Olanzapine (Zyprexa) 5 mg GT HS ANG PRN Reason: Protocol Stop: 12/16/17 20:59 Olanzapine (Zyprexa) 2.5 mg GT DAILY ANG PRN Reason: Protocol Stop: 12/16/17 08:59 Sodium Phosphate (Fleet Enema) 135 ml RC DAILY PRN PRN Reason: Constipation Stop: 12/16/17 08:29 Tamsulosin HCl (Flomax) 0.4 mg GT HS ANG Stop: 12/16/17 20:59 Last Admin: 10/18/17 21:24 Dose: 0.4 mg Zolpidem Tartrate (Ambien) 5 mg GT HS PRN PRN Reason: Insomnia Stop: 12/16/17 08:29 General: Alert, No acute distress, Other (confused) HEENT: Atraumatic, PERRLA, EOMI Neck: Supple, no JVD, no Thyromegaly Cardiovascular: Regular rate, Normal S1, Normal S2 Lungs: Other (improved breath sounds) Abdomen: Bowel sounds, Soft Extremities: Edema (right lower extremity,erythema), no Clubbing, no Cyanosis - Procedures Procedures: Procedures Procedure Code Date EGD ENDO MUCOSAL RESECTION 08741 09/08/[address] GASTROSTOMY TUBE 25816 09/08/17 EXCISION OF STOMACH, ENDO, DIAGN [id number] 09/08/17 INSERTION OF FEEDING DEVICE INTO STOMACH, PERC APPROACH [id number] 09/08/17 INTRODUCTION OF SERUM/TOX/VACCINE INTO MUSCLE, PERC APPROACH [id number] 09/08/17 Assessment/Plan - Assessment Assessment: ALOC secondary to Metabolic Encephalopathy Sepsis improving Anemia Hypernatremia improving Acute Renal Insufficiency improving GIANNI PNA possible aspiration. HTN Asthma COPD PUD GERD s/p gastrostomy tube placement dysphagia benign prostatic hypertrophy glaucoma psychosis insomnia anxiety DVT to LE Enlarge Prostate Right Sided Hydronephrosis hypokalemia - Plan Plan: Admit to ICU Pulmonary consult Dr Raisa Katz Nephrology consult Dr. Morales Neurology consult Dr. Serrnao IV hydration IV Zosyn repeat CBC,CMP tomorrow blood culture x2 urine culture x2 sputum culture x2 PSA Chest Xray CBC, CMP Lovenox SQ Nutritional Asmnt/Malnutr-PDOC - Dietary Evaluation Malnutrition Findings (Please click <Entered> for more info): Nutritional Asmnt/Malnutrition Start: 10/17/17 14: 29 Text: Status: Complete Freq: Document 10/17/17 14:29 OSMANJUAN CARLOS (Rec: 10/17/17 14:49 LCKISHORE [id number]) Nutritional Asmnt/Malnutrition Patient General Information Nutritional Screening High Risk Diagnosis ALOC, LEFT lower lobe PNA, Acute renal insuff Pertinent Medical Hx/Surgical Hx HTN, asthma/COPD, PUD/GERD, s/ p PNA, dysphagia, anemia, BPH, glaucolma, psychosis, insomnia, anxiety, dementia Subjective Information Consult received for wounds. Pt seen resting in bed at time of visit. Pt on NPO, TF not initiated at this time. Current Diet Order/ Nutrition Support Diabetisource AC 60ml/hr x 20hr Pertinent Medications vit C, D5w, colace, iron, culturelle, theragran, piperacillin Pertinent Labs 5/4 Na 158, K 4.3, Cl 128, BUN 59, Cr 1.4, glucose 121 5/3 Na 159, K 4.7, Cl 129, BUN 87, Cr 2.0, glucose 119 Nutritional Hx/Data Height 1.7 m Height (Calculated Centimeters) 170.2 Current Weight (lbs) 58.967 kg Weight (Calculated Kilograms) 59.0 Weight (Calculated Grams) 99450.0 Elizabeth Body Weight 148 Body Mass Index (BMI) 20.3 Weight Status Approriate GI Symptoms GI Symptoms None Last BM none Difficult in: None Usual diet at home glucerna 1.2 at 60ml/hr x 20hr at SNF per chart Skin Integrity/Comment: scar to sacrum, pressure area to right heel, laceration to left hip non-pitting to left lower extremity and left foot, pitting 1+ to right lower extremity and right foot. Current %PO Negligible < 25% Estimated Nutritional Goals BEE in Kcals: Using Current wt Calories/Kcals/Kg 25-30 Kcals Calculated 2513-8500 Protein: Using Current wt Protein g/k-1.2 monitor renal labs Protein Calculated 59-71 Fluid: ml per MD Nutritional Problem 1. Problem Problem altered nutrition related labs Etiology electrolytes imbalance, dx of acute renal insuff, endocrine dysfunction Signs/Symptoms: Na 158, Cl 128, BUN 59, Cr 1.4 , glucose 121 Intervention/Recommendation Comments 1. Start TF as ordered. It will provide 1440kcal and 72g protein, meeting 100% of nutritional needs. 3. Monitor TF tolerance, wt daily, skin integrity and labs 3. F/U as high risk in 2-3 days, 10/19-10/20 Expected Outcomes/Goals Expected Outcomes/Goals 1. pt to meet at least 75% of nutritional needs. 2. Wt stability, skin to remain intact, labs to approach WNL.
--- NOTE | 2017-10-19 19:20 | Progress Notes ---
DATE: 10/19/2017 SUBJECTIVE: The patient lying in the bed. ICU. The patient actually more responsive, tries to verbalize, very little speech. No seizures. The patient's G-tube. MEDICATIONS: Per reconciliation. PHYSICAL EXAMINATION: VITAL SIGNS: 98.7, blood pressure 115/70, pulse is 80. NECK: Supple. The patient in bed. He does respond to his name. He will withdraw or would increase the tone with rigidity and some spasticity. The patient has G-tube. ASSESSMENT: 1. Encephalopathy, metabolic. 2. Underlying dementia. 3. Dysphagia. 4. Anemia. 5. Renal failure. 6. Pneumonia. 7. Hypertension. 8.. Psychosis. Continue present treatment. May consider dose of Sinemet. JOB# [id number]
[2017-10-20] MEDS: Piperacillin/Tazobact 2.25 gm in 0.9% NS 50 ML IV SCH ×4 (00:09→18:31)
[2017-10-20] MEDS: Dextrose 5% 1,000 ML IV SCH (00:11)
--- NOTE | 2017-10-20 01:08 | Progress Notes ---
DATE: 10/19/2017 PULMONARY PROGRESS NOTE PROBLEM LIST: 1. Respiratory failure, improved. 2. Chronic pneumonia, acute on chronic, right side. 3. Alzheimer. 4. History of dysphagia. SYMPTOMS: Nil, feeling okay, not communication much, and some sputum production. No respiratory distress. PHYSICAL EXAMINATION: VITAL SIGNS: T-max 99.4, blood pressure 122/67, and saturation 98. NECK: Veins not visualized. CHEST: Shows diminished air entry with occasional rhonchi. HEART: Regular. ABDOMEN: Soft, nontender. EXTREMITIES: Shows no peripheral edema. PERTINENT LABORATORY STUDIES: White count is 12,000 and hemoglobin 9.4. Electrolytes are okay. ASSESSMENT: The patient is clinically stable. PLANS AND SUGGESTIONS: Okay from Pulmonary standpoint and is step down. No specific symptomatology or treatment. JOB# [id number]
[2017-10-20 05:01] LABS: % EOSINOPHILS 4.2 % (0.0-5.0); % LYMPHOCYTES 19.4 % (20.0-50.0); % MONOCYTES 4.9 % (2.0-10.0); % NEUTROPHILS 71.5 % (40.0-80.0); EOSINOPHILE ABSOLUTE 0.5 Th/cmm (0.1-0.4); HEMATOCRIT 27.4 % (41.0-60); HEMOGLOBIN 9.3 gm/dL (12-16); LYMPHOCYTE ABSOLUTE 2.3 Th/cmm (1.5-3.0); MEAN CELL VOLUME 87.6 fl (80-99); MEAN CORPUSCULAR HEMOGLOBIN 29.7 pg (27.0-31.0); MEAN CORPUSCULAR HGB CONC 33.9 pg (28.0-36.0); MEAN PLATELET VOLUME 7.4 fl; MONOCYTE ABSOLUTE 0.6 Th/cmm (0.3-1.0); NEUTROPHILE ABSOLUTE 8.3 Th/cmm (1.8-8.0); PLATELET COUNT 248 Th/cmm (150-400); RED BLOOD COUNT 3.12 Mil/cmm (3.80-5.80); RED CELL DISTRIBUTION WIDTH 14.7 % (11.5-20.0); WHITE BLOOD COUNT 11.7 Th/cmm (4.8-10.8)
[2017-10-20 05:04] LABS: ALBUMIN 2.4 gm/dL (4.2-5.5); ALKALINE PHOSPHATASE 139 U/L (34-104); ANION GAP 9.1 (7.0-16.0); BILIRUBIN,TOTAL 0.4 mg/dL (0.3-1.0); BUN - UREA NITROGEN 29 mg/dL (7-25); CALCIUM SERUM 8.3 mg/dL (8.6-10.3); CARBON DIOXIDE 22.3 mEq/L (21.0-31.0); CHLORIDE 112 mEq/L (98-107); CREATININE - SERUM 0.9 mg/dL (0.7-1.3); GLUCOSE 105 mg/dL (70-105); MAGNESIUM 1.8 mg/dL (1.9-2.7); POTASSIUM SERUM 3.4 mEq/L (3.5-5.1); SGOT 23 U/L (13-39); SGPT/ALT 22 U/L (7-52); SODIUM SERUM 140 mEq/L (136-145); TOTAL PROTEIN,SERUM 4.8 gm/dL (6.0-8.3)
[2017-10-20] MEDS: Enoxaparin 30 mg/0.3 mL 0.3mL Syr SUBQ SCH ×2 (05:10→16:22)
--- NOTE | 2017-10-20 06:48 | Diagnostic Imaging Report ---
Exam: Portable chest x-ray HISTORY: Shortness of breath. Findings: Portable upright examination of the chest at 0911 hours reviewed compatible prior study day earlier, demonstrates unchanged appearance of the chronic interstitial lung changes bilaterally with fibrosis and scarring. There is evidence for mild left basilar infiltrate and pleural thickening with pleural effusion. Right basilar atelectasis and pleural thickening appreciated. COPD changes are noted. The aortic arch calcified bony thorax is intact. IMPRESSION: COPD changes Basilar atelectasis ,pleural effusions. Question of left basilar infiltrate. Follow-up examination recommended
[2017-10-20] MEDS: Budesonide 0.5 Mg/2 mL Ud HHN SCH ×2 (07:26→18:52)
[2017-10-20] MEDS: Albuterol/Ipratropium Neb 3 ML AERS HHN SCH ×4 (07:26→18:52)
--- NOTE | 2017-10-20 08:28 | Diagnostic Imaging Report ---
CHEST X-RAY: AP view INDICATION: Shortness of breath COMPARISON: 10/18/2017 FINDINGS: Chronic lung changes are seen with superimposed left lower lung zone infiltrates and probable trace effusions. Heart size normal. IMPRESSION: Chronic lung changes with superimposed left lower lung zone infiltrates. There may be additional faint interstitial right basal infiltrates.
--- NOTE | 2017-10-20 08:36 | General Progress Note ---
Subjective - Review of Systems Service Date: 10/20/17 Subjective: Patient is more awake and afebrile. but less confused. Patient cxr this AM. Patient here for PNA. and DVT Objective - Results Result Diagrams: 10/20/17 04:35 10/20/17 04:35 Recent Labs: Laboratory Last Values WBC 11.7 Th/cmm (4.8-10.8) H 10/20/17 04:35 RBC 3.12 Mil/cmm (3.80-5.80) L 10/20/17 04:35 Hgb 9.3 gm/dL (12-16) L 10/20/17 04:35 Hct 27.4 % (41.0-60) L 10/20/17 04:35 MCV 87.6 fl (80-99) 10/20/17 04:35 MCH 29.7 pg (27.0-31.0) 10/20/17 04:35 MCHC Differential 33.9 pg (28.0-36.0) 10/20/17 04:35 RDW 14.7 % (11.5-20.0) 10/20/17 04:35 Plt Count 248 Th/cmm (150-400) 10/20/17 04:35 MPV 7.4 fl 10/20/17 04:35 Neutrophils % 71.5 % (40.0-80.0) 10/20/17 04:35 Band Neutrophils % 2 % (0-10) 10/16/17 08:15 Lymphocytes % 19.4 % (20.0-50.0) L 10/20/17 04:35 Monocytes % 4.9 % (2.0-10.0) 10/20/17 04:35 Eosinophils % 4.2 % (0.0-5.0) 10/20/17 04:35 Basophils % 0.0 % (0.0-2.0) 10/20/17 04:35 Neutrophils (Manual) 83 % (40-80) H 10/16/17 08:15 Lymphocytes 6 % (20-50) L 10/16/17 08:15 Monocytes 8 % (2-10) 10/16/17 08:15 Basophils 1 % (0-3) 10/16/17 08:15 Platelet Estimate ADEQUATE (NORMAL) 10/16/17 08:15 Eos Smear Source URINE 10/17/17 17:40 Eos Smear Total Cells NONE SEEN (NONE SEEN) 10/17/17 17:40 PT 12.0 SECONDS (9.5-11.5) H 10/17/17 13:28 INR 1.14 (0.5-1.4) 10/17/17 13:28 PTT (Actin FS) 26.0 SECONDS (26.0-38.0) 10/17/17 13:28 Specimen Source Arterial 10/17/17 09:33 Sample Site Right Radial 10/17/17 09:33 pH 7.40 (7.35-7.45) 10/17/17 09:33 pCO2 37.0 mmHg (35.0-45.0) 10/17/17 09:33 pO2 84.0 mmHg (80.0-100.0) 10/17/17 09:33 HCO3 23.7 mEq/L (20.0-26.0) 10/17/17 09:33 Base Excess -1.6 mEq/L (-3.0-3.0) 10/17/17 09:33 O2 Saturation 96.0 % (92.0-100.0) 10/17/17 09:33 Franki Test YES 10/17/17 09:33 Vent Rate NA 10/17/17 09:33 Inspired O2 28 10/17/17 09:33 Tidal Volume NA 10/17/17 09:33 PEEP NA 10/17/17 09:33 Pressure (ins/psv/peep) NA 10/17/17 09:33 Critical Value E.COOL 10/17/17 09:33 Sodium 140 mEq/L (136-145) 10/20/17 04:35 Potassium 3.4 mEq/L (3.5-5.1) L 10/20/17 04:35 Chloride 112 mEq/L (98-107) H 10/20/17 04:35 Carbon Dioxide 22.3 mEq/L (21.0-31.0) 10/20/17 04:35 Anion Gap 9.1 (7.0-16.0) 10/20/17 04:35 BUN 29 mg/dL (7-25) H 10/20/17 04:35 Creatinine 0.9 mg/dL (0.7-1.3) 10/20/17 04:35 Est GFR ( Amer) TNP 10/20/17 04:35 Est GFR (Non-Af Amer) TNP 10/20/17 04:35 BUN/Creatinine Ratio 32.2 10/20/17 04:35 Glucose 105 mg/dL (70-105) 10/20/17 04:35 Whole Bld Lactic Acid 1.47 mmol/L (0.60-1.99) 10/16/17 08:15 Uric Acid 3.7 mg/dL (4.4-7.6) L 10/17/17 04:20 Calcium 8.3 mg/dL (8.6-10.3) L 10/20/17 04:35 Phosphorus 3.1 mg/dL (2.5-5.0) 10/17/17 04:20 Magnesium 1.8 mg/dL (1.9-2.7) L 10/20/17 04:35 Total Bilirubin 0.4 mg/dL (0.3-1.0) 10/20/17 04:35 AST 23 U/L (13-39) 10/20/17 04:35 ALT 22 U/L (7-52) 10/20/17 04:35 Alkaline Phosphatase 139 U/L (34-104) H 10/20/17 04:35 Ammonia 43 umol/L (16-53) 10/17/17 04:20 B-Natriuretic Peptide 83.6 pg/mL (5.0-100.0) 10/16/17 08:15 Total Protein 4.8 gm/dL (6.0-8.3) L 10/20/17 04:35 Albumin 2.4 gm/dL (4.2-5.5) L 10/20/17 04:35 Globulin 2.4 gm/dL 10/20/17 04:35 Albumin/Globulin Ratio 1.0 (1.0-1.8) 10/20/17 04:35 Urine Source MANJARREZ PORT 10/16/17 09:00 Urine Color YELLOW 10/16/17 09:00 Urine Clarity HAZY (CLEAR) 10/16/17 09:00 Urine pH 8.5 (4.6 - 8.0) 10/16/17 09:00 Ur Specific [place] <= 1.005 (1.005-1.030) 10/16/17 09:00 Urine Protein >=300 mg/dL (NEGATIVE) 10/16/17 09:00 Urine Glucose (UA) NEGATIVE mg/dL (NEGATIVE) 10/16/17 09:00 Urine Ketones NEGATIVE mg/dL (NEGATIVE) 10/16/17 09:00 Urine Blood SMALL (NEGATIVE) H 10/16/17 09:00 Urine Nitrate NEGATIVE (NEGATIVE) 10/16/17 09:00 Urine Bilirubin NEGATIVE (NEGATIVE) 10/16/17 09:00 Urine Urobilinogen 0.2 E.U./dL (0.2 - 1.0) 10/16/17 09:00 Ur Leukocyte Esterase MODERATE (NEGATIVE) H 10/16/17 09:00 Urine RBC 2-5 /hpf (0-5) H 10/16/17 09:00 Urine WBC 6-10 /hpf (0-5) 10/16/17 09:00 Ur Epithelial Cells FEW /lpf (FEW) 10/16/17 09:00 Triple Phos Crystals MANY /hpf (FEW) 10/16/17 09:00 Urine Bacteria MODERATE /hpf (NONE SEEN) H 10/16/17 09:00 Ur Random Sodium 88 mmol/L 10/17/17 17:40 Urine Creatinine 39.0 mg/dl (39.0-259.0) 10/17/17 17:40 Urine Microalbumin 116 10/16/17 09:00 Microalb/Creat Ratio 299.7 10/16/17 09:00 - Physical Exam Vitals and I&O: Vital Signs Temp 99.0 F 10/20/17 04:00 Pulse 86 10/20/17 07:43 Resp 14 10/20/17 07:43 BP 100/44 10/20/17 06:00 Pulse Ox 97 10/20/17 07:43 Intake & Output 10/19/17 10/20/17 10/20/17 18:59 06:59 18:59 Intake Total 2020 1010 Output Total 2250 6045 Balance -230 -665 Weight (lbs) 61.689 kg 61.689 kg Intake: Intake, IV Amount 1100 950 Dextrose 5% 1,000 ml @ 1000 100 mls/hr IV .Q10H ANG Rx#:[id number] Dextrose 5% 1,000 ml @ 75 900 mls/hr IV .[id number] ANG Rx#:[id number] Piperacillin Sodium/ 100 50 Tazobact 2.25 gm In Sodium Chloride 0.9% 50 ml @ 100 mls/hr IV Q6HR [facility] Rx#:[id number] Tube Feeding 720 60 Other 200 Output: Urine 2250 1675 Other: # Bowel Movements 0 Weight Source Bedscale Bedscale Active Medications: Current Medications Acetaminophen (Tylenol) 650 mg GT Q4H PRN PRN Reason: Mild pain, temp above 100 Stop: 12/16/17 08:29 Al Hydrox/Mg Hydrox/Simethicone (Maalox) 30 ml GT Q4HR PRN PRN Reason: GI distress Stop: 12/16/17 08:29 Albuterol/Ipratropium (Duoneb Neb) 3 ml HHN [id number] [facility] Stop: 12/15/17 14:59 Last Admin: 10/20/17 07:26 Dose: 3 ml Albuterol/Ipratropium (Duoneb Neb) 3 ml HHN Q4H PRN PRN Reason: Wheezing Stop: 12/16/17 08:29 Amlodipine Besylate (Norvasc) 5 mg GT DAILY [facility] Stop: 12/16/17 08:59 Last Admin: 10/19/17 09:31 Dose: 5 mg Ascorbic Acid (Vitamin C) 500 mg GT DAILY [facility] Stop: 12/16/17 08:59 Last Admin: 10/19/17 09:31 Dose: 500 mg Bisacodyl (Dulcolax 10 Mg Supp) 10 mg RC DAILY PRN PRN Reason: Constipation Stop: 12/16/17 08:29 Budesonide (Pulmicort) 0.5 mg HHN BIDRT [facility] Stop: 12/15/17 18:59 Last Admin: 10/20/17 07:26 Dose: 0.5 mg Diphenhydramine HCl (Benadryl 50 Mg/Ml) 50 mg IM Q4HR PRN PRN Reason: Agitation Stop: 12/16/17 08:29 Docusate Sodium (Colace) 100 mg PO DAILY [facility] Stop: 12/16/17 08:59 Last Admin: 10/19/17 09:31 Dose: 100 mg Donepezil HCl (Aricept) 10 mg GT HS [facility] Stop: 12/16/17 20:59 Last Admin: 10/19/17 22:00 Dose: 10 mg Enoxaparin Sodium (Lovenox) 30 mg SUBQ Q12H ANG Stop: 12/17/17 16:19 Last Admin: 10/20/17 05:10 Dose: 30 mg Ferrous Sulfate (Iron) 325 mg PO BID ANG Stop: 12/16/17 08:59 Last Admin: 10/19/17 17:06 Dose: 325 mg Piperacillin Sod/Tazobactam (Sod 2.25 gm/ Sodium Chloride) 50 mls @ 100 mls/hr IV Q6HR ANG Stop: 12/15/17 12:59 Last Admin: 10/20/17 05:11 Dose: 100 mls/hr Dextrose (D5w) 1,000 mls @ 75 mls/hr IV .[id number] [facility] Stop: 12/18/17 10:25 Last Admin: 10/20/17 00:11 Dose: 75 mls/hr Lactobacillus Rhamnosus (Culturelle 15b) 1 each GT DAILY ANG Stop: 12/16/17 08:59 Last Admin: 10/19/17 09:31 Dose: 1 each Latanoprost (Xalatan 0.005% Oph Sol) 1 drop EACH EYE HS ANG Stop: 12/16/17 20:59 Last Admin: 10/20/17 00:09 Dose: Not Given Lorazepam (Ativan) 1 mg GT Q6HR PRN; Protocol PRN Reason: Agitation Stop: 12/16/17 08:29 Losartan Potassium (Cozaar) 50 mg GT DAILY ANG Stop: 12/16/17 08:59 Last Admin: 10/19/17 10:50 Dose: Not Given Magnesium Hydroxide (Milk Of Magnesia) 30 ml PO HS PRN PRN Reason: Constipation Stop: 12/16/17 08:29 Memantine (Namenda) 5 mg GT BID ANG Stop: 12/16/17 08:59 Last Admin: 10/19/17 17:06 Dose: 5 mg Mineral Oil (Mineral Oil 30 Ml) 30 ml GT TID ANG Stop: 12/16/17 08:59 Last Admin: 10/19/17 21:59 Dose: 30 ml Miscellaneous (Zosyn Iv Per Pharmacy) 1 ea PRN PRN PRN Reason: PROTOCOL Stop: 12/15/17 10:42 Multivitamins/Vitamin C (Theragran) 1 tab GT DAILY [facility] Stop: 12/16/17 08:59 Last Admin: 10/19/17 09:31 Dose: 1 tab Mupirocin (Bactroban Oint) 1 appl NS BID [facility] Stop: 10/22/17 09:01 Last Admin: 10/19/17 17:07 Dose: 1 appl Olanzapine (Zyprexa) 5 mg GT HS ANG PRN Reason: Protocol Stop: 12/16/17 20:59 Olanzapine (Zyprexa) 2.5 mg GT DAILY ANG PRN Reason: Protocol Stop: 12/16/17 08:59 Pantoprazole Sodium (Protonix) 40 mg PO DAILY [facility] Stop: 12/19/17 08:59 Sodium Phosphate (Fleet Enema) 135 ml RC DAILY PRN PRN Reason: Constipation Stop: 12/16/17 08:29 Tamsulosin HCl (Flomax) 0.4 mg GT HS [facility] Stop: 12/16/17 20:59 Last Admin: 10/19/17 22:00 Dose: 0.4 mg Zolpidem Tartrate (Ambien) 5 mg GT HS PRN PRN Reason: Insomnia Stop: 12/16/17 08:29 General: Alert, No acute distress, Other (confused) HEENT: Atraumatic, PERRLA, EOMI Neck: Supple, no JVD, no Thyromegaly Cardiovascular: Regular rate, Normal S1, Normal S2 Lungs: Other (improved breath sounds) Abdomen: Bowel sounds, Soft Extremities: Edema (right lower extremity,erythema), no Clubbing, no Cyanosis - Procedures Procedures: Procedures Procedure Code Date EGD ENDO MUCOSAL RESECTION 97918 09/08/[address] GASTROSTOMY TUBE 21936 09/08/17 EXCISION OF STOMACH, ENDO, DIAGN [id number] 09/08/17 INSERTION OF FEEDING DEVICE INTO STOMACH, PERC APPROACH [id number] 09/08/17 INTRODUCTION OF SERUM/TOX/VACCINE INTO MUSCLE, PERC APPROACH [id number] 09/08/17 Assessment/Plan - Assessment Assessment: ALOC secondary to Metabolic Encephalopathy Sepsis improving Anemia Hypernatremia improving Acute Renal Insufficiency improving GIANNI PNA possible aspiration. HTN Asthma COPD PUD GERD s/p gastrostomy tube placement dysphagia benign prostatic hypertrophy glaucoma psychosis insomnia anxiety DVT to LE Enlarge Prostate Right Sided Hydronephrosis hypokalemia hypomagnesemia - Plan Plan: Admit to ICU Pulmonary consult Dr Raisa Katz Nephrology consult Dr. Morales Neurology consult Dr. Serrano IV hydration IV Zosyn repeat CBC,CMP tomorrow blood culture x2 urine culture x2 sputum culture x2 Lovenox SQ q12 PO K and Mg Nutritional Asmnt/Malnutr-PDOC - Dietary Evaluation Malnutrition Findings (Please click <Entered> for more info): Nutritional Asmnt/Malnutrition Start: 10/17/17 14: 29 Text: Status: Complete Freq: Document 10/17/17 14:29 HEN (Rec: 10/17/17 14:49 LCHEN [id number]) Nutritional Asmnt/Malnutrition Patient General Information Nutritional Screening High Risk Diagnosis ALOC, LEFT lower lobe PNA, Acute renal insuff Pertinent Medical Hx/Surgical Hx HTN, asthma/COPD, PUD/GERD, s/ p PNA, dysphagia, anemia, BPH, glaucolma, psychosis, insomnia, anxiety, dementia Subjective Information Consult received for wounds. Pt seen resting in bed at time of visit. Pt on NPO, TF not initiated at this time. Current Diet Order/ Nutrition Support Diabetisource AC 60ml/hr x 20hr Pertinent Medications vit C, D5w, colace, iron, culturelle, theragran, piperacillin Pertinent Labs 5/4 Na 158, K 4.3, Cl 128, BUN 59, Cr 1.4, glucose 121 5/3 Na 159, K 4.7, Cl 129, BUN 87, Cr 2.0, glucose 119 Nutritional Hx/Data Height 1.7 m Height (Calculated Centimeters) 170.2 Current Weight (lbs) 58.967 kg Weight (Calculated Kilograms) 59.0 Weight (Calculated Grams) 93764.0 [place] Body Weight 148 Body Mass Index (BMI) 20.3 Weight Status Approriate GI Symptoms GI Symptoms None Last BM none Difficult in: None Usual diet at home glucerna 1.2 at 60ml/hr x 20hr at SNF per chart Skin Integrity/Comment: scar to sacrum, pressure area to right heel, laceration to left hip non-pitting to left lower extremity and left foot, pitting 1+ to right lower extremity and right foot. Current %PO Negligible < 25% Estimated Nutritional Goals BEE in Kcals: Using Current wt Calories/Kcals/Kg 25-30 Kcals Calculated 2247-3723 Protein: Using Current wt Protein g/k-1.2 monitor renal labs Protein Calculated 59-71 Fluid: ml per MD Nutritional Problem 1. Problem Problem altered nutrition related labs Etiology electrolytes imbalance, dx of acute renal insuff, endocrine dysfunction Signs/Symptoms: Na 158, Cl 128, BUN 59, Cr 1.4 , glucose 121 Intervention/Recommendation Comments 1. Start TF as ordered. It will provide 1440kcal and 72g protein, meeting 100% of nutritional needs. 3. Monitor TF tolerance, wt daily, skin integrity and labs 3. F/U as high risk in 2-3 days, 10/19-10/20 Expected Outcomes/Goals Expected Outcomes/Goals 1. pt to meet at least 75% of nutritional needs. 2. Wt stability, skin to remain intact, labs to approach WNL.
[2017-10-20] MEDS ORDERED: Potassium Chloride Elixir 20 mEq /15 mL UDC GT ONE (08:45)
[2017-10-20] MEDS: Lactobacillus Rhamnosus GG 15 Billion CFU CAP.SPRINK GT SCH (08:53)
[2017-10-20] MEDS: Pantoprazole 40 mg/Packet PO SCH (08:53)
[2017-10-20] MEDS: Promethazine DM 6.25/15mg-5mL 5 ML SYR PO PRN (08:53)
[2017-10-20] MEDS: Ferrous Sulfate 325 MG TAB PO SCH ×2 (08:53→16:22)
[2017-10-20] MEDS: Multivitamin Tab GT SCH (08:53)
--- NOTE | 2017-10-20 12:24 | Diagnostic Imaging Report ---
Bilateral upper extremity DVT study HISTORY: Swelling COMPARISON: None Technique: Longitudinal and transverse sonographic images of the bilateral upper extremity veins were obtained with doppler analysis. FINDINGS: There is patency of the bilateral jugular, subclavian, axillary, brachial, basilic, cephalic veins. Compressibility and augmentation is demonstrated with no evidence of DVT formation. IMPRESSION: No evidence of DVT within the bilateral upper extremity venous system.
[2017-10-20] MEDS ORDERED: D5-0.45NS 1,000 ML IV ONE (19:46)
--- NOTE | 2017-10-20 23:38 | Progress Notes ---
DATE: 10/20/2017 Case was discussed with staff of the patient, reviewed records. The patient is still in ICU, recovering from pneumonia and altered level of consciousness. The patient is nonverbal. He continues to have episodes of getting easily agitated. He usually takes his medication. He is still unpredictable. He needs total care. He is demented, confused, and unable to participate in a meaningful conversation or make safe plan for self-care. His kidney function is going down as well. He was also seen by Dr. Serrano for Neurology consult. Dr. Serrano diagnosed him with encephalopathy, dementia, dysphagia, anemia, renal failure, pneumonia, and hypertension. The patient had a high sodium level and high BUN. No interaction with others. His current medication includes albuterol inhaler every 4 hours as needed, amlodipine 5 mg through the G-tube daily, ascorbic acid 500 mg through the G-tube daily, bisacodyl 10 mg daily, Pulmicort inhaler twice a day, clonidine 0.1 mg every 4 hours as needed, diphenhydramine 50 mg IM every 4 hours as needed, Aricept 10 mg through G-tube at bedtime as needed, Lovenox 30 mg subcutaneous every 12 hours, iron 325 mg through G-tube twice a day, losartan 50 mg daily, Namenda 5 mg twice a day, olanzapine 7.5 mg through the G-tube, Protonix 40 mg daily, piperacillin IV every 6 hours, promethazine 5 mg 3 times a day as needed, Flomax 0.4 mg at bedtime, and Zosyn IV. According to the pharmacy, no side effects to the medication, no sedation, and no extrapyramidal symptoms. We will continue to work with the patient in group therapy. Thank you very much for allowing me to participate in the care of this most interesting gentleman. JOB# [id number]
[2017-10-21] MEDS: Piperacillin/Tazobact 2.25 gm in 0.9% NS 50 ML IV SCH ×5 (00:45→23:55)
--- NOTE | 2017-10-21 01:24 | Progress Notes ---
DATE: 10/20/2017 PULMONARY PROGRESS NOTE PROBLEM LIST: 1. Acute pneumonitis, improving. 2. Organic brain syndrome. 3. Suspect sleep apnea syndrome. SYMPTOMS: The patient is awake, breathing without O2. No respiratory distress. PHYSICAL EXAMINATION: VITAL SIGNS: The patient's recorded vitals, T-max 97.5, heart rate in 80s, saturation 98 on room air, and respirations 18. NECK: Veins not visualized. Good bilateral carotid upstroke. CHEST: Diminished air entry with occasional rhonchi. HEART: Regular. ABDOMEN: Soft, nontender. LABORATORY DATA: The patient's ultrasound shows no evidence of ____ bilateral upper extremity. ASSESSMENT: The patient is clinically stable, improving. PLANS AND SUGGESTIONS: Continue current conservative treatment. Discharge planning should be okay and go from there. JOB# [id number]
--- NOTE | 2017-10-21 04:15 | Progress Notes ---
DATE: 10/20/2017 NEUROLOGY PROGRESS NOTE SUBJECTIVE/REVIEW OF SYSTEMS: The patient is in bed ICU. More awake. He is coughing, some shortness of breath. Question of DVT. Management as per PMD. The patient is very little speech, but seems to verbalize a little bit, moving extremities more. MEDICATIONS: Per reconciliation. OBJECTIVE: VITAL SIGNS: Temperature 98.2, blood pressure 110/48, pulse is 80. NECK: Supple, no bruits. CARDIOVASCULAR: Heart sounds S1, S2. RESPIRATORY: Lungs clear. NEUROLOGICAL: The patient is more awake. EXTREMITIES: Moving upper extremity, some withdrawal lower extremity still increased tone, but seemed to be little bit more active than before. ASSESSMENT: 1. Encephalopathy, metabolic. 2. Underlying dementia. 3. Dysphagia. 4. Anemia. 5. Renal failure. 6. Pneumonia. 7. Hypertension. 8. Psychosis. PLAN: Continue present treatment. Get a CT scan of the head. JOB# [id number]
[2017-10-21] MEDS: Enoxaparin 30 mg/0.3 mL 0.3mL Syr SUBQ SCH ×2 (05:08→16:03)
[2017-10-21] MEDS: Albuterol/Ipratropium Neb 3 ML AERS HHN SCH ×4 (07:19→19:02)
[2017-10-21] MEDS: Budesonide 0.5 Mg/2 mL Ud HHN SCH ×2 (07:19→19:02)
--- NOTE | 2017-10-21 08:10 | General Progress Note ---
Subjective - Review of Systems Service Date: 10/21/17 Subjective: Patient is more awake and afebrile. but less confused. Patient cxr this AM. Patient here for PNA. and DVT. Still coughing. +MRSA sputum Objective - Results Result Diagrams: 10/20/17 04:35 10/20/17 04:35 Recent Labs: Laboratory Last Values WBC 11.7 Th/cmm (4.8-10.8) H 10/20/17 04:35 RBC 3.12 Mil/cmm (3.80-5.80) L 10/20/17 04:35 Hgb 9.3 gm/dL (12-16) L 10/20/17 04:35 Hct 27.4 % (41.0-60) L 10/20/17 04:35 MCV 87.6 fl (80-99) 10/20/17 04:35 MCH 29.7 pg (27.0-31.0) 10/20/17 04:35 MCHC Differential 33.9 pg (28.0-36.0) 10/20/17 04:35 RDW 14.7 % (11.5-20.0) 10/20/17 04:35 Plt Count 248 Th/cmm (150-400) 10/20/17 04:35 MPV 7.4 fl 10/20/17 04:35 Neutrophils % 71.5 % (40.0-80.0) 10/20/17 04:35 Band Neutrophils % 2 % (0-10) 10/16/17 08:15 Lymphocytes % 19.4 % (20.0-50.0) L 10/20/17 04:35 Monocytes % 4.9 % (2.0-10.0) 10/20/17 04:35 Eosinophils % 4.2 % (0.0-5.0) 10/20/17 04:35 Basophils % 0.0 % (0.0-2.0) 10/20/17 04:35 Neutrophils (Manual) 83 % (40-80) H 10/16/17 08:15 Lymphocytes 6 % (20-50) L 10/16/17 08:15 Monocytes 8 % (2-10) 10/16/17 08:15 Basophils 1 % (0-3) 10/16/17 08:15 Platelet Estimate ADEQUATE (NORMAL) 10/16/17 08:15 Eos Smear Source URINE 10/17/17 17:40 Eos Smear Total Cells NONE SEEN (NONE SEEN) 10/17/17 17:40 PT 12.0 SECONDS (9.5-11.5) H 10/17/17 13:28 INR 1.14 (0.5-1.4) 10/17/17 13:28 PTT (Actin FS) 26.0 SECONDS (26.0-38.0) 10/17/17 13:28 Specimen Source Arterial 10/17/17 09:33 Sample Site Right Radial 10/17/17 09:33 pH 7.40 (7.35-7.45) 10/17/17 09:33 pCO2 37.0 mmHg (35.0-45.0) 10/17/17 09:33 pO2 84.0 mmHg (80.0-100.0) 10/17/17 09:33 HCO3 23.7 mEq/L (20.0-26.0) 10/17/17 09:33 Base Excess -1.6 mEq/L (-3.0-3.0) 10/17/17 09:33 O2 Saturation 96.0 % (92.0-100.0) 10/17/17 09:33 Franki Test YES 10/17/17 09:33 Vent Rate NA 10/17/17 09:33 Inspired O2 28 10/17/17 09:33 Tidal Volume NA 10/17/17 09:33 PEEP NA 10/17/17 09:33 Pressure (ins/psv/peep) NA 10/17/17 09:33 Critical Value E.COOL 10/17/17 09:33 Sodium 140 mEq/L (136-145) 10/20/17 04:35 Potassium 3.4 mEq/L (3.5-5.1) L 10/20/17 04:35 Chloride 112 mEq/L (98-107) H 10/20/17 04:35 Carbon Dioxide 22.3 mEq/L (21.0-31.0) 10/20/17 04:35 Anion Gap 9.1 (7.0-16.0) 10/20/17 04:35 BUN 29 mg/dL (7-25) H 10/20/17 04:35 Creatinine 0.9 mg/dL (0.7-1.3) 10/20/17 04:35 Est GFR ( Amer) TNP 10/20/17 04:35 Est GFR (Non-Af Amer) TNP 10/20/17 04:35 BUN/Creatinine Ratio 32.2 10/20/17 04:35 Glucose 105 mg/dL (70-105) 10/20/17 04:35 Whole Bld Lactic Acid 1.47 mmol/L (0.60-1.99) 10/16/17 08:15 Uric Acid 3.7 mg/dL (4.4-7.6) L 10/17/17 04:20 Calcium 8.3 mg/dL (8.6-10.3) L 10/20/17 04:35 Phosphorus 3.1 mg/dL (2.5-5.0) 10/17/17 04:20 Magnesium 1.8 mg/dL (1.9-2.7) L 10/20/17 04:35 Total Bilirubin 0.4 mg/dL (0.3-1.0) 10/20/17 04:35 AST 23 U/L (13-39) 10/20/17 04:35 ALT 22 U/L (7-52) 10/20/17 04:35 Alkaline Phosphatase 139 U/L (34-104) H 10/20/17 04:35 Ammonia 43 umol/L (16-53) 10/17/17 04:20 B-Natriuretic Peptide 83.6 pg/mL (5.0-100.0) 10/16/17 08:15 Total Protein 4.8 gm/dL (6.0-8.3) L 10/20/17 04:35 Albumin 2.4 gm/dL (4.2-5.5) L 10/20/17 04:35 Globulin 2.4 gm/dL 10/20/17 04:35 Albumin/Globulin Ratio 1.0 (1.0-1.8) 10/20/17 04:35 Urine Source [place] 10/16/17 09:00 Urine Color YELLOW 10/16/17 09:00 Urine Clarity HAZY (CLEAR) 10/16/17 09:00 Urine pH 8.5 (4.6 - 8.0) 10/16/17 09:00 Ur Specific [place] <= 1.005 (1.005-1.030) 10/16/17 09:00 Urine Protein >=300 mg/dL (NEGATIVE) 10/16/17 09:00 Urine Glucose (UA) NEGATIVE mg/dL (NEGATIVE) 10/16/17 09:00 Urine Ketones NEGATIVE mg/dL (NEGATIVE) 10/16/17 09:00 Urine Blood SMALL (NEGATIVE) H 10/16/17 09:00 Urine Nitrate NEGATIVE (NEGATIVE) 10/16/17 09:00 Urine Bilirubin NEGATIVE (NEGATIVE) 10/16/17 09:00 Urine Urobilinogen 0.2 E.U./dL (0.2 - 1.0) 10/16/17 09:00 Ur Leukocyte Esterase MODERATE (NEGATIVE) H 10/16/17 09:00 Urine RBC 2-5 /hpf (0-5) H 10/16/17 09:00 Urine WBC 6-10 /hpf (0-5) 10/16/17 09:00 Ur Epithelial Cells FEW /lpf (FEW) 10/16/17 09:00 Triple Phos Crystals MANY /hpf (FEW) 10/16/17 09:00 Urine Bacteria MODERATE /hpf (NONE SEEN) H 10/16/17 09:00 Urine Osmolality 509 mOsmol/kg 10/18/17 15:30 Ur Random Sodium 88 mmol/L 10/17/17 17:40 Urine Creatinine 39.0 mg/dl (39.0-259.0) 10/17/17 17:40 Urine Microalbumin 116 10/16/17 09:00 Microalb/Creat Ratio 299.7 10/16/17 09:00 - Physical Exam Vitals and I&O: Vital Signs Temp 97.2 F 10/21/17 04:00 Pulse 86 10/21/17 07:21 Resp 19 10/21/17 07:21 BP 120/69 10/21/17 04:00 Pulse Ox 98 10/21/17 07:21 Intake & Output 10/20/17 10/21/17 10/21/17 18:59 06:59 18:59 Intake Total 50 100 Balance 50 100 Intake: Intake, IV Amount 50 100 Piperacillin Sodium/ 50 100 Tazobact 2.25 gm In Sodium Chloride 0.9% 50 ml @ 100 mls/hr IV Q6HR [facility] Rx#:[id number] Active Medications: Current Medications Acetaminophen (Tylenol) 650 mg GT Q4H PRN PRN Reason: Mild pain, temp above 100 Stop: 12/16/17 08:29 Al Hydrox/Mg Hydrox/Simethicone (Maalox) 30 ml GT Q4HR PRN PRN Reason: GI distress Stop: 12/16/17 08:29 Albuterol/Ipratropium (Duoneb Neb) 3 ml HHN [id number] ANG Stop: 12/15/17 14:59 Last Admin: 10/21/17 07:19 Dose: 3 ml Albuterol/Ipratropium (Duoneb Neb) 3 ml HHN Q4H PRN PRN Reason: Wheezing Stop: 12/16/17 08:29 Amlodipine Besylate (Norvasc) 5 mg GT DAILY [facility] Stop: 12/16/17 08:59 Last Admin: 10/20/17 08:54 Dose: Not Given Ascorbic Acid (Vitamin C) 500 mg GT DAILY [facility] Stop: 12/16/17 08:59 Last Admin: 10/20/17 08:53 Dose: 500 mg Bisacodyl (Dulcolax 10 Mg Supp) 10 mg RC DAILY PRN PRN Reason: Constipation Stop: 12/16/17 08:29 Budesonide (Pulmicort) 0.5 mg HHN BIDRT [facility] Stop: 12/15/17 18:59 Last Admin: 10/21/17 07:19 Dose: 0.5 mg Diphenhydramine HCl (Benadryl 50 Mg/Ml) 50 mg IM Q4HR PRN PRN Reason: Agitation Stop: 12/16/17 08:29 Docusate Sodium (Colace) 100 mg PO DAILY ANG Stop: 12/16/17 08:59 Last Admin: 10/20/17 08:53 Dose: 100 mg Donepezil HCl (Aricept) 10 mg GT HS [facility] Stop: 12/16/17 20:59 Last Admin: 10/20/17 21:45 Dose: 10 mg Enoxaparin Sodium (Lovenox) 30 mg SUBQ Q12H ANG Stop: 12/17/17 16:19 Last Admin: 10/21/17 05:08 Dose: 30 mg Ferrous Sulfate (Iron) 325 mg PO BID [facility] Stop: 12/16/17 08:59 Last Admin: 10/20/17 16:22 Dose: 325 mg Piperacillin Sod/Tazobactam (Sod 2.25 gm/ Sodium Chloride) 50 mls @ 100 mls/hr IV Q6HR ANG Stop: 12/15/17 12:59 Last Admin: 10/21/17 05:09 Dose: 100 mls/hr Dextrose/Sodium Chloride (D5-0.45ns) 1,000 mls @ 60 mls/hr IV .[id number] ONE Stop: 10/21/17 12:25 Last Admin: 10/20/17 22:03 Dose: 60 mls/hr Lactobacillus Rhamnosus (Culturelle 15b) 1 each GT DAILY ANG Stop: 12/16/17 08:59 Last Admin: 10/20/17 08:53 Dose: 1 each Latanoprost (Xalatan 0.005% Oph Soln) 1 drop EACH EYE HS [facility] Stop: 12/16/17 20:59 Last Admin: 10/20/17 21:45 Dose: 1 drop Lorazepam (Ativan) 1 mg GT Q6HR PRN; Protocol PRN Reason: Agitation Stop: 12/16/17 08:29 Losartan Potassium (Cozaar) 50 mg GT DAILY ANG Stop: 12/16/17 08:59 Last Admin: 10/20/17 08:55 Dose: Not Given Magnesium Hydroxide (Milk Of Magnesia) 30 ml PO HS PRN PRN Reason: Constipation Stop: 12/16/17 08:29 Memantine (Namenda) 5 mg GT BID ANG Stop: 12/16/17 08:59 Last Admin: 10/20/17 16:22 Dose: 5 mg Mineral Oil (Mineral Oil 30 Ml) 30 ml GT TID ANG Stop: 12/16/17 08:59 Last Admin: 10/20/17 21:45 Dose: 30 ml Miscellaneous (Zosyn Iv Per Pharmacy) 1 ea MC PRN PRN PRN Reason: PROTOCOL Stop: 12/15/17 10:42 Multivitamins/Vitamin C (Theragran) 1 tab GT DAILY ANG Stop: 12/16/17 08:59 Last Admin: 10/20/17 08:53 Dose: 1 tab Mupirocin (Bactroban Oint) 1 appl NS BID ANG Stop: 10/22/17 09:01 Last Admin: 10/20/17 16:24 Dose: 1 appl Olanzapine (Zyprexa) 5 mg GT HS ANG PRN Reason: Protocol Stop: 12/16/17 20:59 Olanzapine (Zyprexa) 2.5 mg GT DAILY ANG PRN Reason: Protocol Stop: 12/16/17 08:59 Pantoprazole Sodium (Protonix) 40 mg PO DAILY ANG Stop: 12/19/17 08:59 Last Admin: 10/20/17 08:53 Dose: 40 mg Promethazine HCl/Dextromethorphan (Phenergan Dm 6.25/15mg-5 Ml) 5 ml PO TID PRN PRN Reason: Cough Stop: 12/19/17 08:36 Last Admin: 10/20/17 08:53 Dose: 5 ml Sodium Phosphate (Fleet Enema) 135 ml RC DAILY PRN PRN Reason: Constipation Stop: 12/16/17 08:29 Tamsulosin HCl (Flomax) 0.4 mg GT HS ANG Stop: 12/16/17 20:59 Last Admin: 10/20/17 21:45 Dose: 0.4 mg Zolpidem Tartrate (Ambien) 5 mg GT HS PRN PRN Reason: Insomnia Stop: 12/16/17 08:29 General: Alert, No acute distress, Other (confused) HEENT: Atraumatic, PERRLA, EOMI Neck: Supple, no JVD, no Thyromegaly Cardiovascular: Regular rate, Normal S1, Normal S2 Lungs: Other (improved breath sounds) Abdomen: Bowel sounds, Soft Extremities: Edema (right lower extremity,erythema), no Clubbing, no Cyanosis - Procedures Procedures: Procedures Procedure Code Date EGD ENDO MUCOSAL RESECTION 78435 09/08/[address] GASTROSTOMY TUBE 32183 09/08/17 EXCISION OF STOMACH, ENDO, DIAGN [id number] 09/08/17 INSERTION OF FEEDING DEVICE INTO STOMACH, PERC APPROACH [id number] 09/08/17 INTRODUCTION OF SERUM/TOX/VACCINE INTO MUSCLE, PERC APPROACH [id number] 09/08/17 Assessment/Plan - Assessment Assessment: +MRSA Sputum ALOC secondary to Metabolic Encephalopathy Sepsis improving Anemia Hypernatremia improving Acute Renal Insufficiency improving GIANNI PNA possible aspiration. HTN Asthma COPD PUD GERD s/p gastrostomy tube placement dysphagia benign prostatic hypertrophy glaucoma psychosis insomnia anxiety DVT to LE Enlarge Prostate Right Sided Hydronephrosis hypokalemia hypomagnesemia - Plan Plan: Admit to ICU Pulmonary consult Dr Raisa Katz Nephrology consult Dr. Morales Neurology consult Dr. Serrano IV hydration IV Zosyn repeat CBC,CMP tomorrow blood culture x2 urine culture x2 sputum culture x2 Lovenox SQ q12 PO K and Mg Nutritional Asmnt/Malnutr-PDOC - Dietary Evaluation Malnutrition Findings (Please click <Entered> for more info): Nutritional Asmnt/Malnutrition Start: 10/17/17 14: 29 Text: Status: Complete Freq: Document 10/17/17 14:29 HEN (Rec: 10/17/17 14:49 LCHENG [id number]) Nutritional Asmnt/Malnutrition Patient General Information Nutritional Screening High Risk Diagnosis ALOC, LEFT lower lobe PNA, Acute renal insuff Pertinent Medical Hx/Surgical Hx HTN, asthma/COPD, PUD/GERD, s/ p PNA, dysphagia, anemia, BPH, glaucolma, psychosis, insomnia, anxiety, dementia Subjective Information Consult received for wounds. Pt seen resting in bed at time of visit. Pt on NPO, TF not initiated at this time. Current Diet Order/ Nutrition Support Diabetisource AC 60ml/hr x 20hr Pertinent Medications vit C, D5w, colace, iron, culturelle, theragran, piperacillin Pertinent Labs 5/4 Na 158, K 4.3, Cl 128, BUN 59, Cr 1.4, glucose 121 5/3 Na 159, K 4.7, Cl 129, BUN 87, Cr 2.0, glucose 119 Nutritional Hx/Data Height 1.7 m Height (Calculated Centimeters) 170.2 Current Weight (lbs) 58.967 kg Weight (Calculated Kilograms) 59.0 Weight (Calculated Grams) 20600.0 [place] Body Weight 148 Body Mass Index (BMI) 20.3 Weight Status Approriate GI Symptoms GI Symptoms None Last BM none Difficult in: None Usual diet at home glucerna 1.2 at 60ml/hr x 20hr at [facility] per chart Skin Integrity/Comment: scar to sacrum, pressure area to right heel, laceration to left hip non-pitting to left lower extremity and left foot, pitting 1+ to right lower extremity and right foot. Current %PO Negligible < 25% Estimated Nutritional Goals BEE in Kcals: Using Current wt Calories/Kcals/Kg 25-30 Kcals Calculated 2113-5010 Protein: Using Current wt Protein g/k-1.2 monitor renal labs Protein Calculated 59-71 Fluid: ml per MD Nutritional Problem 1. Problem Problem altered nutrition related labs Etiology electrolytes imbalance, dx of acute renal insuff, endocrine dysfunction Signs/Symptoms: Na 158, Cl 128, BUN 59, Cr 1.4 , glucose 121 Intervention/Recommendation Comments 1. Start TF as ordered. It will provide 1440kcal and 72g protein, meeting 100% of nutritional needs. 3. Monitor TF tolerance, wt daily, skin integrity and labs 3. F/U as high risk in 2-3 days, 10/19-10/20 Expected Outcomes/Goals Expected Outcomes/Goals 1. pt to meet at least 75% of nutritional needs. 2. Wt stability, skin to remain intact, labs to approach WNL.
[2017-10-21] MEDS: Ferrous Sulfate 325 MG TAB PO SCH ×2 (08:33→16:04)
[2017-10-21] MEDS: Pantoprazole 40 mg/Packet PO SCH (08:33)
[2017-10-21] MEDS: Lactobacillus Rhamnosus GG 15 Billion CFU CAP.SPRINK GT SCH (08:33)
[2017-10-21] MEDS: Multivitamin Tab GT SCH (08:33)
[2017-10-21] MEDS: Promethazine DM 6.25/15mg-5mL 5 ML SYR PO PRN (08:49)
[2017-10-21 09:21] LABS: % BASOPHILS 0.5 % (0.0-2.0); % EOSINOPHILS 4.3 % (0.0-5.0); % LYMPHOCYTES 16.7 % (20.0-50.0); % MONOCYTES 8.7 % (2.0-10.0); % NEUTROPHILS 69.8 % (40.0-80.0); BASOPHILE ABSOLUTE 0.1 Th/cumm (0-0.2); EOSINOPHILE ABSOLUTE 0.6 Th/cmm (0.1-0.4); HEMATOCRIT 28.4 % (41.0-60); HEMOGLOBIN 9.6 gm/dL (12-16); LYMPHOCYTE ABSOLUTE 2.3 Th/cmm (1.5-3.0); MEAN CELL VOLUME 88.7 fl (80-99); MEAN CORPUSCULAR HEMOGLOBIN 29.8 pg (27.0-31.0); MEAN CORPUSCULAR HGB CONC 33.7 pg (28.0-36.0); MEAN PLATELET VOLUME 7.8 fl; MONOCYTE ABSOLUTE 1.2 Th/cmm (0.3-1.0); NEUTROPHILE ABSOLUTE 9.3 Th/cmm (1.8-8.0); PLATELET COUNT 263 Th/cmm (150-400); RED BLOOD COUNT 3.21 Mil/cmm (3.80-5.80); RED CELL DISTRIBUTION WIDTH 15.6 % (11.5-20.0)
[2017-10-21 09:23] LABS: WHITE BLOOD COUNT 13.5 Th/cmm (4.8-10.8)
[2017-10-21 09:40] LABS: ALB/GLOB RATIO 0.9 (1.0-1.8); ALBUMIN 2.3 gm/dL (4.2-5.5); ALKALINE PHOSPHATASE 139 U/L (34-104); ANION GAP 9.5 (7.0-16.0); BILIRUBIN,TOTAL 0.4 mg/dL (0.3-1.0); BUN - UREA NITROGEN 25 mg/dL (7-25); CALCIUM SERUM 8.1 mg/dL (8.6-10.3); CARBON DIOXIDE 24.3 mEq/L (21.0-31.0); CHLORIDE 110 mEq/L (98-107); CREATININE - SERUM 0.8 mg/dL (0.7-1.3); GLUCOSE 121 mg/dL (70-105); POTASSIUM SERUM 3.8 mEq/L (3.5-5.1); SGOT 55 U/L (13-39); SGPT/ALT 43 U/L (7-52); SODIUM SERUM 140 mEq/L (136-145); TOTAL PROTEIN,SERUM 4.9 gm/dL (6.0-8.3)
--- NOTE | 2017-10-21 12:37 | Consultation ---
Consult Note - Consult Note Service Date: 10/21/17 Referring Physician: Pillo Jarrell Consult Note: PHYSICIAN Consultation Note: Date of Admission: 10/16/17 Purpose of Consultation: MRSA Pneumonia. Chief Complaint: Patient HAZEL PINEDO was admitted to [facility] with ALOC/LEFT LOWER LOBE PNA/ACUTE RENAL INSUFFICIENCY. History of Present Illness: Patient is 87 year male with a past medical history of dementia, psychosis, anxiety disorder, hypertension, CK D, COPD, history of aspiration pneumonia, GERD, peptic ulcer disease, BPH, dysphagia, G-tube placement Brought to the ER for abnormal labs. Patient has a sodium of 157 40 some 6.8 chloride 122 BUN is 118 creatinine 4.0. Patient was admitted with the diagnoses acute renal failure to the ICU. Over the time, he was diagnosed to have pneumonia. And the sputum culture grew MRSA. Chest x-ray also showed chronic lung changes with left lower lobe infiltrate. Patient was treated by Diana. ID consult was called for antibiotic management. It was also noted that patient had elevated the WBC counts. On initial evaluation patient, and WBC count was 16,800 and it improved to 11,700. Now it went back to 13,500 today. Vancomycin IV was elevated today. Patient is severely demented and unable to give any history. Past Medical History: dementia, psychosis, anxiety disorder, hypertension, CK D , COPD, history of aspiration pneumonia, GERD, peptic ulcer disease, BPH, dysphagia, G-tube placement Diagnoses SEPSIS, UNSPECIFIED ORGANISM (10/16/17) ANEMIA, UNSPECIFIED (10/16/17) HYPOMAGNESEMIA (10/16/17) DEHYDRATION (10/16/17) HYPEROSMOLALITY AND HYPERNATREMIA (10/16/17) HYPOKALEMIA (10/16/17) UNSP PSYCHOSIS NOT DUE TO A SUBSTANCE OR KNOWN PHYSIOL COND (10/16/17) ANXIETY DISORDER, UNSPECIFIED (10/16/17) INSOMNIA, UNSPECIFIED (10/16/17) ENCEPHALOPATHY, UNSPECIFIED (10/16/17) METABOLIC ENCEPHALOPATHY (10/16/17) UNSPECIFIED GLAUCOMA (10/16/17) ESSENTIAL (PRIMARY) HYPERTENSION (10/16/17) HYPERTENSIVE CHRONIC KIDNEY DISEASE W STG 1-4/UNSP CHR KDNY (10/16/17) CHRONIC OBSTRUCTIVE PULMONARY DISEASE, UNSPECIFIED (10/16/17) UNSPECIFIED ASTHMA, UNCOMPLICATED (10/16/17) PNEUMONITIS DUE TO INHALATION OF FOOD AND VOMIT (10/16/17) GASTRO-ESOPHAGEAL REFLUX DISEASE WITHOUT ESOPHAGITIS (10/16/17) PEPTIC ULC, SITE UNSP, UNSP AC OR CHR, W/O HEMOR OR PERF (10/16/17) ACUTE KIDNEY FAILURE, UNSPECIFIED (10/16/17) CHRONIC KIDNEY DISEASE, UNSPECIFIED (10/16/17) BENIGN PROSTATIC HYPERPLASIA WITHOUT LOWER URINRY TRACT SYMP (10/16/17) DYSPHAGIA, UNSPECIFIED (10/16/17) GASTROSTOMY STATUS (10/16/17) Allergies Allergy/AdvReac Type Severity Reaction Status Date / Time No Known Allergies Allergy Verified 09/05/17 18:52 Vital Signs Temp 97.7 F 10/21/17 08:12 Pulse 84 10/21/17 11:12 Resp 20 10/21/17 12:00 BP 98/48 10/21/17 08:36 Pulse Ox 97 10/21/17 11:12 Intake & Output 10/20/17 10/21/17 10/21/17 18:59 06:59 18:59 Intake Total 50 820 662 Output Total 850 Balance 50 -30 662 Weight (lbs) 61.235 kg Intake: Intake, IV Amount 50 100 662 D5-0.45NS 1,000 ml @ 60 612 mls/hr IV .[id number] ONE Rx #:[id number] Piperacillin Sodium/ 50 100 50 Tazobact 2.25 gm In Sodium Chloride 0.9% 50 ml @ 100 mls/hr IV Q6HR [facility] Rx#:[id number] TPN/PPN 720 Output: Urine 850 Other: # Bowel Movements 0 [facility] Laboratory Results - last 24 hr 10/18/17 10/21/17 10/21/17 15:30 09:05 09:05 WBC 13.5 H RBC 3.21 L Hgb 9.6 L Hct 28.4 L MCV 88.7 MCH 29.8 MCHC Differential 33.7 RDW 15.6 Plt Count 263 MPV 7.8 Neutrophils % 69.8 Lymphocytes % 16.7 L Monocytes % 8.7 Eosinophils % 4.3 Basophils % 0.5 Sodium 140 Potassium 3.8 Chloride 110 H Carbon Dioxide 24.3 Anion Gap 9.5 BUN 25 Creatinine 0.8 Est GFR ( Amer) TNP Est GFR (Non-Af Amer) TNP BUN/Creatinine Ratio 31.3 Glucose 121 H Calcium 8.1 L Total Bilirubin 0.4 AST 55 H ALT 43 Alkaline Phosphatase 139 H Total Protein 4.9 L Albumin 2.3 L Globulin 2.6 Albumin/Globulin Ratio 0.9 L Urine Osmolality 509 Home Medication Medication Instructions Recorded Type Acetaminophen [Tylenol] 650 mg PO Q4HR PRN tab 09/08/17 Rx Al Hyd/Mg Hyd/Simethicone [Maalox] 30 ml PO Q4HR PRN udc 09/08/17 Rx Albuterol/Ipratropium Neb [Duoneb 3 ml HHN Q4H PRN aers 09/08/17 Rx Neb] Ascorbic Acid [Vitamin C] 500 mg PO DAILY tab 09/08/17 Rx Donepezil Hcl [Aricept] 10 mg PO HS tab 09/08/17 Rx Ferrous Sulfate [Iron] 325 mg PO BID tab 09/08/17 Rx Furosemide [Lasix] 20 mg PO DAILY tab 09/08/17 Rx Latanoprost 0.005% Ophth Soln 1 drop EACH EYE HS drops 09/08/17 Rx [Xalatan 0.005% Ophth Soln] Magnesium Hydroxide [Milk of 30 ml PO HS PRN udc 09/08/17 Rx Magnesia] Memantine [Namenda] 5 mg PO DAILY tab 09/08/17 Rx Multivitamin [Theragran] 1 tab PO DAILY tab 09/08/17 Rx OLANZapine [ZyPREXA] 2.5 mg PO DAILY tab 09/08/17 Rx OLANZapine [ZyPREXA] 5 mg PO HS tab 09/08/17 Rx Tamsulosin [Flomax] 0.4 mg PO HS cap 09/08/17 Rx Zolpidem Tartrate [Ambien] 5 mg PO HS PRN tab 09/08/17 Rx amLODIPine Besylate [Norvasc] 5 mg PO DAILY tab 09/08/17 Rx cloNIDine HCl [Catapres] 0.1 mg PO Q8H PRN tab 09/08/17 Rx diphenhydrAMINE [Benadryl 50 50 mg IM Q4HR PRN vial 09/08/17 Rx mg/mL] Acetaminophen [Tylenol] 650 mg GT Q4H PRN tab 09/22/17 Rx Al Hyd/Mg Hyd/Simethicone [Maalox] 30 ml GT Q4HR PRN udc 09/22/17 Rx Albuterol/Ipratropium Neb [Duoneb 3 ml HHN Q4H PRN aers 09/22/17 Rx Neb] Albuterol/Ipratropium Neb [Duoneb 3 ml HHN [id number] aers 09/22/17 Rx Neb] Ascorbic Acid [Vitamin C] 500 mg GT DAILY tab 09/22/17 Rx Bisacodyl [Dulcolax 10 Mg Supp] 10 mg RC DAILY PRN sup 09/22/17 Rx Budesonide [Pulmicort] 0.5 mg HHN BIDRT ud 09/22/17 Rx Docusate Sodium [Colace] 100 mg PO DAILY cap 09/22/17 Rx Donepezil Hcl [Aricept] 10 mg GT HS tab 09/22/17 Rx Fleet Enema 135 ml RC DAILY PRN btl 09/22/17 Rx Lactobacillus Rhamnosus GG 15B 1 each GT DAILY cap.sprink 09/22/17 Rx [Culturelle 15B] Latanoprost 0.005% Ophth Soln 1 drop EACH EYE HS drops 09/22/17 Rx [Xalatan 0.005% Ophth Soln] Lorazepam [Ativan] 1 mg GT Q6HR PRN tab 09/22/17 Rx Losartan Potassium [Cozaar] 50 mg GT DAILY tab 09/22/17 Rx Magnesium Hydroxide [Milk of 30 ml PO HS PRN udc 09/22/17 Rx Magnesia] Memantine [Namenda] 5 mg GT BID tab 09/22/17 Rx Mineral Oil [Mineral Oil 30 ml] 30 ml GT TID udc 09/22/17 Rx Multivitamin [Theragran] 1 tab GT DAILY tab 09/22/17 Rx OLANZapine [ZyPREXA] 2.5 mg GT DAILY tab 09/22/17 Rx OLANZapine [ZyPREXA] 5 mg GT HS tab 09/22/17 Rx Piperacillin Sodium/Tazobact 2.25 gm IV Q6HR vial 09/22/17 Rx [Zosyn] Tamsulosin [Flomax] 0.4 mg GT HS cap 09/22/17 Rx Zolpidem Tartrate [Ambien] 5 mg GT HS PRN tab 09/22/17 Rx amLODIPine Besylate [Norvasc] 5 mg GT DAILY tab 09/22/17 Rx cloNIDine HCl [Catapres] 0.1 mg GT Q8HR PRN tab 09/22/17 Rx metroNIDAZOLE 500mg/NS 100mL 500 mg IV Q8H bag 09/22/17 Rx [Flagyl*] Current Medications Generic Name Dose Route Start Last Admin Trade Name Freq PRN Reason Stop Dose Admin Acetaminophen 650 mg 10/17/17 08:30 Tylenol GT 12/16/17 08:29 Q4H PRN Mild pain, temp above 100 Al Hydrox/Mg Hydrox/Simethicone 30 ml 10/17/17 08:30 Maalox GT 12/16/17 08:29 Q4HR PRN GI distress Albuterol/Ipratropium 3 ml 10/16/17 15:00 10/21/17 11:12 Duoneb Neb [facility] 12/15/17 14:59 3 ml [id number] ANG Administration Albuterol/Ipratropium 3 ml 10/17/17 08:30 Duoneb Neb [facility] 12/16/17 08:29 Q4H PRN Wheezing Amlodipine Besylate 5 mg 10/17/17 09:00 10/21/17 08:36 Norvasc GT 12/16/17 08:59 Not Given DAILY ANG Ascorbic Acid 500 mg 10/17/17 09:00 10/21/17 08:33 Vitamin C GT 12/16/17 08:59 500 mg DAILY ANG Administration Bisacodyl 10 mg 10/17/17 08:30 Dulcolax 10 Mg Supp RC 12/16/17 08:29 DAILY PRN Constipation Budesonide 0.5 mg 10/16/17 19:00 10/21/17 07:19 Pulmicort N 12/15/17 18:59 0.5 mg BIDRT ANG Administration Diphenhydramine HCl 50 mg 10/17/17 08:30 Benadryl 50 Mg/Ml IM 12/16/17 08:29 Q4HR PRN Agitation Docusate Sodium 100 mg 10/17/17 09:00 10/21/17 08:33 Colace PO 12/16/17 08:59 100 mg DAILY ANG Administration Donepezil HCl 10 mg 10/17/17 21:00 10/20/17 21:45 Aricept GT 12/16/17 20:59 10 mg HS ANG Administration Enoxaparin Sodium 30 mg 10/18/17 16:23 10/21/17 05:08 Lovenox SUBQ 12/17/17 16:19 30 mg Q12H ANG Administration Ferrous Sulfate 325 mg 10/17/17 09:00 10/21/17 08:33 Iron PO 12/16/17 08:59 325 mg BID ANG Administration Piperacillin Sod/Tazobactam 50 mls @ 100 mls/hr 10/17/17 12:00 10/21/17 11:22 Sod 2.25 gm/ Sodium Chloride IV 12/15/17 12:59 100 mls/hr Q6HR ANG Administration Vancomycin HCl 1.25 gm/ Sodium 250 mls @ 165 mls/hr 10/21/17 12:00 Chloride IV 10/21/17 13:30 ONCE ONE Vancomycin HCl 1.25 gm/ Sodium 250 mls @ 165 mls/hr 10/22/17 09:00 Chloride IV 12/21/17 08:59 Q24H ANG Lactobacillus Rhamnosus 1 each 10/17/17 09:00 10/21/17 08:33 Culturelle 15b GT 12/16/17 08:59 1 each DAILY ANG Administration Latanoprost 1 drop 10/17/17 21:00 10/20/17 21:45 Xalatan 0.005% Ophth Soln EACH EYE 12/16/17 20:59 1 drop HS ANG Administration Lorazepam 1 mg 10/17/17 08:30 Ativan GT 12/16/17 08:29 Q6HR PRN Agitation Protocol Losartan Potassium 50 mg 10/17/17 09:00 10/21/17 08:36 Cozaar GT 12/16/17 08:59 Not Given DAILY ANG Magnesium Hydroxide 30 ml 10/17/17 08:30 Milk Of Magnesia PO 12/16/17 08:29 HS PRN Constipation Memantine 5 mg 10/17/17 09:00 10/21/17 08:33 Namenda GT 12/16/17 08:59 5 mg BID ANG Administration Mineral Oil 30 ml 10/17/17 09:00 10/21/17 08:33 Mineral Oil 30 Ml GT 12/16/17 08:59 30 ml TID ANG Administration Miscellaneous 1 ea 10/16/17 10:43 Zosyn Iv Per Pharmacy 12/15/17 10:42 PRN PRN PROTOCOL Miscellaneous 1 ea 10/21/17 11:00 Vancomycin Iv Per Pharmacy 12/20/17 10:59 DAILY ANG Multivitamins/Vitamin C 1 tab 10/17/17 09:00 10/21/17 08:33 Theragran GT 12/16/17 08:59 1 tab DAILY ANG Administration Mupirocin 1 appl 10/17/17 17:00 10/21/17 08:41 Bactroban Oint NS 10/22/17 09:01 1 appl BID ANG Administration Olanzapine 5 mg 10/17/17 21:00 Zyprexa GT 12/16/17 20:59 HS ANG Protocol Olanzapine 2.5 mg 10/17/17 09:00 Zyprexa GT 12/16/17 08:59 DAILY ANG Protocol Pantoprazole Sodium 40 mg 10/20/17 09:00 10/21/17 08:33 Protonix PO 12/19/17 08:59 40 mg DAILY ANG Administration Promethazine HCl/Dextromethorphan 5 ml 10/20/17 08:37 10/21/17 08:49 Phenergan Dm 6.25/15mg-5 Ml PO 12/19/17 08:36 5 ml TID PRN Administration Cough Sodium Phosphate 135 ml 10/17/17 08:30 Fleet Enema RC 12/16/17 08:29 DAILY PRN Constipation Tamsulosin HCl 0.4 mg 10/17/17 21:00 10/20/17 21:45 Flomax GT 12/16/17 20:59 0.4 mg HS ANG Administration Zolpidem Tartrate 5 mg 10/17/17 08:30 Ambien GT 12/16/17 08:29 HS PRN Insomnia Review of Systems: A 12 point ROS was reviewed with the pertinent positive and negatives noted in the HPI. Social History Smoking Status Unknown if ever smoked Drug Use No Alcohol Use No Listed nursing facility. Family Medical History Not available. Physical Exam: General: Cachectic, not in acute distress. HEENT: Head: Normocephalic, atraumatic. Oral cavity moist, pink tongue. Eyes: Pallor is present icterus. Pupils PERRLA. EOMI. Neck: Supple, no [place], no use of X his neck muscles. S1 and S2 within normal limits regular rhythm no murmur no gallop. Cardio: Respiratory: Vesicular breath sound with the crackles present on auscultation. Abdominal: Soft, nontender, nondistended bowel sounds present G-tube site is clear. Genital/Urinary: Deferred. Extremities: No cyanosis no clubbing no edema. Neurological: Confused. Assessment: 1. MRSA pneumonia. LLL. 2. Leukocytosis. 3. dementia. 4. psychosis. 5. Anxiety disorder. 6. hypertension. 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 8. COPD. 9. History of aspiration pneumonia. 10. GERD, peptic ulcer disease. 11. BPH. 12. Dysphagia. 13. G-tube placement. Plan: Start vancomycin IV and contionue zosyn. Thank you, Dr. Jarrell for involving me taking care of this patient Signed, Aman Katz M.D. [id number]
--- NOTE | 2017-10-21 13:46 | General Progress Note ---
Subjective - Review of Systems Service Date: 10/21/17 Subjective: arousable, comfortable Objective - Results Result Diagrams: 10/21/17 09:05 10/21/17 09:05 Recent Labs: Laboratory Last Values WBC 13.5 Th/cmm (4.8-10.8) H 10/21/17 09:05 RBC 3.21 Mil/cmm (3.80-5.80) L 10/21/17 09:05 Hgb 9.6 gm/dL (12-16) L 10/21/17 09:05 Hct 28.4 % (41.0-60) L 10/21/17 09:05 MCV 88.7 fl (80-99) 10/21/17 09:05 MCH 29.8 pg (27.0-31.0) 10/21/17 09:05 MCHC Differential 33.7 pg (28.0-36.0) 10/21/17 09:05 RDW 15.6 % (11.5-20.0) 10/21/17 09:05 Plt Count 263 Th/cmm (150-400) 10/21/17 09:05 MPV 7.8 fl 10/21/17 09:05 Neutrophils % 69.8 % (40.0-80.0) 10/21/17 09:05 Band Neutrophils % 2 % (0-10) 10/16/17 08:15 Lymphocytes % 16.7 % (20.0-50.0) L 10/21/17 09:05 Monocytes % 8.7 % (2.0-10.0) 10/21/17 09:05 Eosinophils % 4.3 % (0.0-5.0) 10/21/17 09:05 Basophils % 0.5 % (0.0-2.0) 10/21/17 09:05 Neutrophils (Manual) 83 % (40-80) H 10/16/17 08:15 Lymphocytes 6 % (20-50) L 10/16/17 08:15 Monocytes 8 % (2-10) 10/16/17 08:15 Basophils 1 % (0-3) 10/16/17 08:15 Platelet Estimate ADEQUATE (NORMAL) 10/16/17 08:15 Eos Smear Source URINE 10/17/17 17:40 Eos Smear Total Cells NONE SEEN (NONE SEEN) 10/17/17 17:40 PT 12.0 SECONDS (9.5-11.5) H 10/17/17 13:28 INR 1.14 (0.5-1.4) 10/17/17 13:28 PTT (Actin FS) 26.0 SECONDS (26.0-38.0) 10/17/17 13:28 Specimen Source Arterial 10/17/17 09:33 Sample Site Right Radial 10/17/17 09:33 pH 7.40 (7.35-7.45) 10/17/17 09:33 pCO2 37.0 mmHg (35.0-45.0) 10/17/17 09:33 pO2 84.0 mmHg (80.0-100.0) 10/17/17 09:33 HCO3 23.7 mEq/L (20.0-26.0) 10/17/17 09:33 Base Excess -1.6 mEq/L (-3.0-3.0) 10/17/17 09:33 O2 Saturation 96.0 % (92.0-100.0) 10/17/17 09:33 Franki Test YES 10/17/17 09:33 Vent Rate NA 10/17/17 09:33 Inspired O2 28 10/17/17 09:33 Tidal Volume NA 10/17/17 09:33 PEEP NA 10/17/17 09:33 Pressure (ins/psv/peep) NA 10/17/17 09:33 Critical Value E.COOL 10/17/17 09:33 Sodium 140 mEq/L (136-145) 10/21/17 09:05 Potassium 3.8 mEq/L (3.5-5.1) 10/21/17 09:05 Chloride 110 mEq/L (98-107) H 10/21/17 09:05 Carbon Dioxide 24.3 mEq/L (21.0-31.0) 10/21/17 09:05 Anion Gap 9.5 (7.0-16.0) 10/21/17 09:05 BUN 25 mg/dL (7-25) 10/21/17 09:05 Creatinine 0.8 mg/dL (0.7-1.3) 10/21/17 09:05 Est GFR ( Amer) TNP 10/21/17 09:05 Est GFR (Non-Af Amer) TNP 10/21/17 09:05 BUN/Creatinine Ratio 31.3 10/21/17 09:05 Glucose 121 mg/dL (70-105) H 10/21/17 09:05 Whole Bld Lactic Acid 1.47 mmol/L (0.60-1.99) 10/16/17 08:15 Uric Acid 3.7 mg/dL (4.4-7.6) L 10/17/17 04:20 Calcium 8.1 mg/dL (8.6-10.3) L 10/21/17 09:05 Phosphorus 3.1 mg/dL (2.5-5.0) 10/17/17 04:20 Magnesium 1.8 mg/dL (1.9-2.7) L 10/20/17 04:35 Total Bilirubin 0.4 mg/dL (0.3-1.0) 10/21/17 09:05 AST 55 U/L (13-39) H 10/21/17 09:05 ALT 43 U/L (7-52) 10/21/17 09:05 Alkaline Phosphatase 139 U/L (34-104) H 10/21/17 09:05 Ammonia 43 umol/L (16-53) 10/17/17 04:20 B-Natriuretic Peptide 83.6 pg/mL (5.0-100.0) 10/16/17 08:15 Total Protein 4.9 gm/dL (6.0-8.3) L 10/21/17 09:05 Albumin 2.3 gm/dL (4.2-5.5) L 10/21/17 09:05 Globulin 2.6 gm/dL 10/21/17 09:05 Albumin/Globulin Ratio 0.9 (1.0-1.8) L 10/21/17 09:05 Urine Source [place] 10/16/17 09:00 Urine Color YELLOW 10/16/17 09:00 Urine Clarity HAZY (CLEAR) 10/16/17 09:00 Urine pH 8.5 (4.6 - 8.0) 10/16/17 09:00 Ur Specific [place] <= 1.005 (1.005-1.030) 10/16/17 09:00 Urine Protein >=300 mg/dL (NEGATIVE) 10/16/17 09:00 Urine Glucose (UA) NEGATIVE mg/dL (NEGATIVE) 10/16/17 09:00 Urine Ketones NEGATIVE mg/dL (NEGATIVE) 10/16/17 09:00 Urine Blood SMALL (NEGATIVE) H 10/16/17 09:00 Urine Nitrate NEGATIVE (NEGATIVE) 10/16/17 09:00 Urine Bilirubin NEGATIVE (NEGATIVE) 10/16/17 09:00 Urine Urobilinogen 0.2 E.U./dL (0.2 - 1.0) 10/16/17 09:00 Ur Leukocyte Esterase MODERATE (NEGATIVE) H 10/16/17 09:00 Urine RBC 2-5 /hpf (0-5) H 10/16/17 09:00 Urine WBC 6-10 /hpf (0-5) 10/16/17 09:00 Ur Epithelial Cells FEW /lpf (FEW) 10/16/17 09:00 Triple Phos Crystals MANY /hpf (FEW) 10/16/17 09:00 Urine Bacteria MODERATE /hpf (NONE SEEN) H 10/16/17 09:00 Urine Osmolality 509 mOsmol/kg 10/18/17 15:30 Ur Random Sodium 88 mmol/L 10/17/17 17:40 Urine Creatinine 39.0 mg/dl (39.0-259.0) 10/17/17 17:40 Urine Microalbumin 116 10/16/17 09:00 Microalb/Creat Ratio 299.7 10/16/17 09:00 - Physical Exam Vitals and I&O: Vital Signs Temp 97.7 F 10/21/17 08:12 Pulse 84 10/21/17 11:12 Resp 20 10/21/17 12:00 BP 98/48 10/21/17 08:36 Pulse Ox 97 10/21/17 11:12 Intake & Output 10/20/17 10/21/17 10/21/17 18:59 06:59 18:59 Intake Total 50 820 662 Output Total 850 Balance 50 -30 662 Weight (lbs) 61.235 kg Intake: Intake, IV Amount 50 100 662 D5-0.45NS 1,000 ml @ 60 612 mls/hr IV .[id number] ONE Rx #:[id number] Piperacillin Sodium/ 50 100 50 Tazobact 2.25 gm In Sodium Chloride 0.9% 50 ml @ 100 mls/hr IV Q6HR ANG Rx#:[id number] TPN/PPN 720 Output: Urine 850 Other: # Bowel Movements 0 Weight Source Bedscale Active Medications: Current Medications Acetaminophen (Tylenol) 650 mg GT Q4H PRN PRN Reason: Mild pain, temp above 100 Stop: 12/16/17 08:29 Al Hydrox/Mg Hydrox/Simethicone (Maalox) 30 ml GT Q4HR PRN PRN Reason: GI distress Stop: 12/16/17 08:29 Albuterol/Ipratropium (Duoneb Neb) 3 ml HHN [id number] [facility] Stop: 12/15/17 14:59 Last Admin: 10/21/17 11:12 Dose: 3 ml Albuterol/Ipratropium (Duoneb Neb) 3 ml HHN Q4H PRN PRN Reason: Wheezing Stop: 12/16/17 08:29 Amlodipine Besylate (Norvasc) 5 mg GT DAILY [facility] Stop: 12/16/17 08:59 Last Admin: 10/21/17 08:36 Dose: Not Given Ascorbic Acid (Vitamin C) 500 mg GT DAILY [facility] Stop: 12/16/17 08:59 Last Admin: 10/21/17 08:33 Dose: 500 mg Bisacodyl (Dulcolax 10 Mg Supp) 10 mg RC DAILY PRN PRN Reason: Constipation Stop: 12/16/17 08:29 Budesonide (Pulmicort) 0.5 mg HHN BIDRT [facility] Stop: 12/15/17 18:59 Last Admin: 10/21/17 07:19 Dose: 0.5 mg Diphenhydramine HCl (Benadryl 50 Mg/Ml) 50 mg IM Q4HR PRN PRN Reason: Agitation Stop: 12/16/17 08:29 Docusate Sodium (Colace) 100 mg PO DAILY [facility] Stop: 12/16/17 08:59 Last Admin: 10/21/17 08:33 Dose: 100 mg Donepezil HCl (Aricept) 10 mg GT HS [facility] Stop: 12/16/17 20:59 Last Admin: 10/20/17 21:45 Dose: 10 mg Enoxaparin Sodium (Lovenox) 30 mg SUBQ Q12H [facility] Stop: 12/17/17 16:19 Last Admin: 10/21/17 05:08 Dose: 30 mg Ferrous Sulfate (Iron) 325 mg PO BID ANG Stop: 12/16/17 08:59 Last Admin: 10/21/17 08:33 Dose: 325 mg Piperacillin Sod/Tazobactam (Sod 2.25 gm/ Sodium Chloride) 50 mls @ 100 mls/hr IV Q6HR ANG Stop: 12/15/17 12:59 Last Admin: 10/21/17 11:22 Dose: 100 mls/hr Vancomycin HCl 1.25 gm/ Sodium (Chloride) 250 mls @ 165 mls/hr IV Q24H ANG Stop: 12/21/17 08:59 Lactobacillus Rhamnosus (Culturelle 15b) 1 each GT DAILY ANG Stop: 12/16/17 08:59 Last Admin: 10/21/17 08:33 Dose: 1 each Latanoprost (Xalatan 0.005% Oph Soln) 1 drop EACH EYE HS ANG Stop: 12/16/17 20:59 Last Admin: 10/20/17 21:45 Dose: 1 drop Lorazepam (Ativan) 1 mg GT Q6HR PRN; Protocol PRN Reason: Agitation Stop: 12/16/17 08:29 Losartan Potassium (Cozaar) 50 mg GT DAILY ANG Stop: 12/16/17 08:59 Last Admin: 10/21/17 08:36 Dose: Not Given Magnesium Hydroxide (Milk Of Magnesia) 30 ml PO HS PRN PRN Reason: Constipation Stop: 12/16/17 08:29 Memantine (Namenda) 5 mg GT BID ANG Stop: 12/16/17 08:59 Last Admin: 10/21/17 08:33 Dose: 5 mg Mineral Oil (Mineral Oil 30 Ml) 30 ml GT TID ANG Stop: 12/16/17 08:59 Last Admin: 10/21/17 08:33 Dose: 30 ml Miscellaneous (Zosyn Iv Per Pharmacy) 1 ea MC PRN PRN PRN Reason: PROTOCOL Stop: 12/15/17 10:42 Miscellaneous (Vancomycin Iv Per Pharmacy) 1 ea MC DAILY ANG Stop: 12/20/17 10:59 Multivitamins/Vitamin C (Theragran) 1 tab GT DAILY ANG Stop: 12/16/17 08:59 Last Admin: 10/21/17 08:33 Dose: 1 tab Mupirocin (Bactroban Oint) 1 appl NS BID ANG Stop: 10/22/17 09:01 Last Admin: 10/21/17 08:41 Dose: 1 appl Olanzapine (Zyprexa) 5 mg GT HS ANG PRN Reason: Protocol Stop: 12/16/17 20:59 Olanzapine (Zyprexa) 2.5 mg GT DAILY ANG PRN Reason: Protocol Stop: 12/16/17 08:59 Pantoprazole Sodium (Protonix) 40 mg PO DAILY [facility] Stop: 12/19/17 08:59 Last Admin: 10/21/17 08:33 Dose: 40 mg Promethazine HCl/Dextromethorphan (Phenergan Dm 6.25/15mg-5 Ml) 5 ml PO TID PRN PRN Reason: Cough Stop: 12/19/17 08:36 Last Admin: 10/21/17 08:49 Dose: 5 ml Sodium Phosphate (Fleet Enema) 135 ml RC DAILY PRN PRN Reason: Constipation Stop: 12/16/17 08:29 Tamsulosin HCl (Flomax) 0.4 mg GT HS [facility] Stop: 12/16/17 20:59 Last Admin: 10/20/17 21:45 Dose: 0.4 mg Zolpidem Tartrate (Ambien) 5 mg GT HS PRN PRN Reason: Insomnia Stop: 12/16/17 08:29 General: Alert, No acute distress, Other (confused) HEENT: Atraumatic, PERRLA, EOMI Neck: Supple, no JVD, no Thyromegaly Cardiovascular: Regular rate, Normal S1, Normal S2 Lungs: Other (improved breath sounds) Abdomen: Bowel sounds, Soft Extremities: no Clubbing, no Cyanosis, no Edema Neurological: Sensation intact Skin: no Rash Psych/Mental Status: Mood NL - Procedures Procedures: Procedures Procedure Code Date EGD ENDO MUCOSAL RESECTION 26088 09/08/[address] GASTROSTOMY TUBE 30425 09/08/17 EXCISION OF STOMACH, ENDO, DIAGN [id number] 09/08/17 INSERTION OF FEEDING DEVICE INTO STOMACH, PERC APPROACH [id number] 09/08/17 INTRODUCTION OF SERUM/TOX/VACCINE INTO MUSCLE, PERC APPROACH [id number] 09/08/17 Assessment/Plan - Assessment Assessment: SWATHI on CKD Sepsis 2/2 Cx UTI Met Enceph Anemia CD COPD GERD Psychosis - Plan Plan: Lab - Result Diagrams 10/17/17 04:20 10/17/17 04:20 Current Medications Acetaminophen (Tylenol) 650 mg GT Q4H PRN PRN Reason: Mild pain, temp above 100 Stop: 12/16/17 08:29 Al Hydrox/Mg Hydrox/Simethicone (Maalox) 30 ml GT Q4HR PRN PRN Reason: GI distress Stop: 12/16/17 08:29 Albuterol/Ipratropium (Duoneb Neb) 3 ml HHN [id number] [facility] Stop: 12/15/17 14:59 Last Admin: 10/17/17 14:45 Dose: 3 ml Albuterol/Ipratropium (Duoneb Neb) 3 ml HHN Q4H PRN PRN Reason: Wheezing Stop: 12/16/17 08:29 Amlodipine Besylate (Norvasc) 5 mg GT DAILY [facility] Stop: 12/16/17 08:59 Last Admin: 10/17/17 09:37 Dose: Not Given Ascorbic Acid (Vitamin C) 500 mg GT DAILY [facility] Stop: 12/16/17 08:59 Last Admin: 10/17/17 09:36 Dose: 500 mg Bisacodyl (Dulcolax 10 Mg Supp) 10 mg RC DAILY PRN PRN Reason: Constipation Stop: 12/16/17 08:29 Budesonide (Pulmicort) 0.5 mg HHN BIDRT [facility] Stop: 12/15/17 18:59 Last Admin: 10/17/17 07:27 Dose: 0.5 mg Diphenhydramine HCl (Benadryl 50 Mg/Ml) 50 mg IM Q4HR PRN PRN Reason: Agitation Stop: 12/16/17 08:29 Docusate Sodium (Colace) 100 mg PO DAILY [facility] Stop: 12/16/17 08:59 Last Admin: 10/17/17 09:36 Dose: 100 mg Donepezil HCl (Aricept) 10 mg GT HS [facility] Stop: 12/16/17 20:59 Ferrous Sulfate (Iron) 325 mg PO BID [facility] Stop: 12/16/17 08:59 Last Admin: 10/17/17 09:36 Dose: 325 mg Dextrose (D5w) 1,000 mls @ 100 mls/hr IV .Q10H [facility] Stop: 12/15/17 14:29 Last Admin: 10/17/17 11:57 Dose: 100 mls/hr Piperacillin Sod/Tazobactam (Sod 2.25 gm/ Sodium Chloride) 50 mls @ 100 mls/hr IV Q6HR ANG Stop: 12/15/17 12:59 Last Admin: 10/17/17 11:59 Dose: 100 mls/hr Lactobacillus Rhamnosus (Culturelle 15b) 1 each GT DAILY ANG Stop: 12/16/17 08:59 Last Admin: 10/17/17 09:36 Dose: 1 each Latanoprost (Xalatan 0.005% Ophth Soln) 1 drop EACH EYE HS ANG Stop: 12/16/17 20:59 Lorazepam (Ativan) 1 mg GT Q6HR PRN; Protocol PRN Reason: Agitation Stop: 12/16/17 08:29 Losartan Potassium (Cozaar) 50 mg GT DAILY ANG Stop: 12/16/17 08:59 Last Admin: 10/17/17 09:37 Dose: Not Given Magnesium Hydroxide (Milk Of Magnesia) 30 ml PO HS PRN PRN Reason: Constipation Stop: 12/16/17 08:29 Memantine (Namenda) 5 mg GT BID ANG Stop: 12/16/17 08:59 Last Admin: 10/17/17 09:36 Dose: 5 mg Mineral Oil (Mineral Oil 30 Ml) 30 ml GT TID ANG Stop: 12/16/17 08:59 Last Admin: 10/17/17 14:20 Dose: 30 ml Miscellaneous (Zosyn Iv Per Pharmacy) 1 ea MC PRN PRN PRN Reason: PROTOCOL Stop: 12/15/17 10:42 Multivitamins/Vitamin C (Theragran) 1 tab GT DAILY ANG Stop: 12/16/17 08:59 Last Admin: 10/17/17 09:36 Dose: 1 tab Mupirocin (Bactroban Oint) 1 appl NS BID [facility] Stop: 10/22/17 09:01 Olanzapine (Zyprexa) 5 mg GT HS AGN PRN Reason: Protocol Stop: 12/16/17 20:59 Olanzapine (Zyprexa) 2.5 mg GT DAILY ANG PRN Reason: Protocol Stop: 12/16/17 08:59 Sodium Phosphate (Fleet Enema) 135 ml RC DAILY PRN PRN Reason: Constipation Stop: 12/16/17 08:29 Tamsulosin HCl (Flomax) 0.4 mg GT HS ANG Stop: 12/16/17 20:59 Zolpidem Tartrate (Ambien) 5 mg GT HS PRN PRN Reason: Insomnia Stop: 12/16/17 08:29 Lab - Result Diagrams 10/21/17 09:05 10/21/17 09:05 kidney fnc better UOP also improved Na @ 140 continue D5W f/u electrolytes, cbc On Zosyn Nutritional Asmnt/Malnutr-PDOC - Dietary Evaluation Malnutrition Findings (Please click <Entered> for more info): Nutritional Asmnt/Malnutrition Start: 10/17/17 14: 29 Text: Status: Complete Freq: Document 10/17/17 14:29 JELLY (Rec: 10/17/17 14:49 JELLY [id number]) Nutritional Asmnt/Malnutrition Patient General Information Nutritional Screening High Risk Diagnosis ALOC, LEFT lower lobe PNA, Acute renal insuff Pertinent Medical Hx/Surgical Hx HTN, asthma/COPD, PUD/GERD, s/ p PNA, dysphagia, anemia, BPH, glaucolma, psychosis, insomnia, anxiety, dementia Subjective Information Consult received for wounds. Pt seen resting in bed at time of visit. Pt on NPO, TF not initiated at this time. Current Diet Order/ Nutrition Support Diabetisource AC 60ml/hr x 20hr Pertinent Medications vit C, D5w, colace, iron, culturelle, theragran, piperacillin Pertinent Labs 5/4 Na 158, K 4.3, Cl 128, BUN 59, Cr 1.4, glucose 121 5/3 Na 159, K 4.7, Cl 129, BUN 87, Cr 2.0, glucose 119 Nutritional Hx/Data Height 1.7 m Height (Calculated Centimeters) 170.2 Current Weight (lbs) 58.967 kg Weight (Calculated Kilograms) 59.0 Weight (Calculated Grams) 46653.0 Ellis Body Weight 148 Body Mass Index (BMI) 20.3 Weight Status Approriate GI Symptoms GI Symptoms None Last BM none Difficult in: None Usual diet at home glucerna 1.2 at 60ml/hr x 20hr at SNF per chart Skin Integrity/Comment: scar to sacrum, pressure area to right heel, laceration to left hip non-pitting to left lower extremity and left foot, pitting 1+ to right lower extremity and right foot. Current %PO Negligible < 25% Estimated Nutritional Goals BEE in Kcals: Using Current wt Calories/Kcals/Kg 25-30 Kcals Calculated 8811-9348 Protein: Using Current wt Protein g/k-1.2 monitor renal labs Protein Calculated 59-71 Fluid: ml per MD Nutritional Problem 1. Problem Problem altered nutrition related labs Etiology electrolytes imbalance, dx of acute renal insuff, endocrine dysfunction Signs/Symptoms: Na 158, Cl 128, BUN 59, Cr 1.4 , glucose 121 Intervention/Recommendation Comments 1. Start TF as ordered. It will provide 1440kcal and 72g protein, meeting 100% of nutritional needs. 3. Monitor TF tolerance, wt daily, skin integrity and labs 3. F/U as high risk in 2-3 days, 10/19-10/20 Expected Outcomes/Goals Expected Outcomes/Goals 1. pt to meet at least 75% of nutritional needs. 2. Wt stability, skin to remain intact, labs to approach WNL.
--- NOTE | 2017-10-21 14:03 | Diagnostic Imaging Report ---
Head CT without intravenous contrast Indication: CVA Comparison: None Technique: Axial images were obtained from the vertex to the skull base without IV contrast. Coronal reconstructions were made. Total DLP: 1220, [id number] FINDINGS: Exam is limited due to positioning and motion. There is no evidence of hemorrhage. Diffuse atrophy is noted. Mild white matter disease is noted. The ventricles and basal cisterns are patent. No mass effect or midline shift. Assessment for skull fracture is limited on this exam. There is mucosal thickening of paranasal sinus. There is partial opacification of bilateral mastoid air cells. IMPRESSION: Limited exam. No evidence of an acute intracranial hemorrhage. Diffuse atrophy. Mild supratentorial white matter disease which is nonspecific and may be due to chronic microvessel ischemia.. Mild bilateral mastoid air cell disease.
--- NOTE | 2017-10-21 16:02 | Progress Notes ---
DATE: 10/21/2017 SUBJECTIVE: Discussed with staff of the patient, reviewed records. The patient was transferred from ICU to the medical floor. 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 He continues to be nonverbal, needing redirection. He is at high fall risk. He is always in bed, is hard to adjust his depression; however, he is on Zyprexa 7.5 mg daily with no side effects to help his agitated behavior and we will continue with the patient in group therapy, milieu therapy, and adjust medications as needed. JOB# [id number]
--- NOTE | 2017-10-21 16:38 | Progress Notes ---
DATE: 10/21/2017 PULMONARY PROGRESS NOTE PROBLEM LIST: 1. Slowly resolving pneumonia, acute on chronic. 2. Electrolyte imbalance. 3. Significant anasarca and history of previous pulmonary fibrosis. SYMPTOMS: Nil. Noncommunicative. Not in acute respiratory distress. PHYSICAL EXAMINATION: VITAL SIGNS: The patient's pulse is in 80s, respiration 18, saturation 96. NECK: Veins not visualized. CHEST: Shows diminished air entry without much of adventitious breath sounds. HEART: Regular. ABDOMEN: Soft, nontender. LABORATORY DATA: The patient's chest x-ray shows some chronic changes bibasilar, probably most of them looks like an old one. ASSESSMENT: The patient is clinically stable. PLANS AND SUGGESTIONS: We will continue current respiratory care, inhalation treatment, nocturnal BiPAP, etc., and go from there. JOB# [id number]
[2017-10-22] MEDS: Enoxaparin 30 mg/0.3 mL 0.3mL Syr SUBQ SCH ×2 (04:54→15:51)
[2017-10-22] MEDS: Piperacillin/Tazobact 2.25 gm in 0.9% NS 50 ML IV SCH ×3 (05:36→17:37)
[2017-10-22 06:34] LABS: ANION GAP 9.6 (7.0-16.0); BUN - UREA NITROGEN 25 mg/dL (7-25); CALCIUM SERUM 8.3 mg/dL (8.6-10.3); CARBON DIOXIDE 25.4 mEq/L (21.0-31.0); CHLORIDE 111 mEq/L (98-107); CREATININE - SERUM 0.8 mg/dL (0.7-1.3); GLUCOSE 109 mg/dL (70-105); SODIUM SERUM 142 mEq/L (136-145)
[2017-10-22 06:35] LABS: % EOSINOPHILS 3.7 % (0.0-5.0); % LYMPHOCYTES 18.9 % (20.0-50.0); % MONOCYTES 10.5 % (2.0-10.0); % NEUTROPHILS 65.9 % (40.0-80.0); BASOPHILE ABSOLUTE 0.1 Th/cumm (0-0.2); EOSINOPHILE ABSOLUTE 0.5 Th/cmm (0.1-0.4); HEMOGLOBIN 9.3 gm/dL (12-16); LYMPHOCYTE ABSOLUTE 2.3 Th/cmm (1.5-3.0); MEAN CELL VOLUME 87.3 fl (80-99); MEAN CORPUSCULAR HEMOGLOBIN 30.1 pg (27.0-31.0); MEAN CORPUSCULAR HGB CONC 34.4 pg (28.0-36.0); MEAN PLATELET VOLUME 7.8 fl; MONOCYTE ABSOLUTE 1.3 Th/cmm (0.3-1.0); PLATELET COUNT 275 Th/cmm (150-400); RED BLOOD COUNT 3.09 Mil/cmm (3.80-5.80); RED CELL DISTRIBUTION WIDTH 16.1 % (11.5-20.0)
[2017-10-22 06:40] LABS: WHITE BLOOD COUNT 12.2 Th/cmm (4.8-10.8)
[2017-10-22] MEDS: Albuterol/Ipratropium Neb 3 ML AERS HHN SCH ×4 (07:26→18:31)
[2017-10-22] MEDS: Budesonide 0.5 Mg/2 mL Ud HHN SCH ×2 (07:26→18:31)
--- NOTE | 2017-10-22 08:18 | General Progress Note ---
Subjective - Review of Systems Service Date: 10/22/17 Subjective: Temp 99.1 last night. but less confused. Patient cxr this AM. Patient here for PNA. and DVT. coughing improved. +MRSA sputum. Objective - Results Result Diagrams: 10/22/17 05:30 10/22/17 05:30 Recent Labs: Laboratory Last Values WBC 12.2 Th/cmm (4.8-10.8) H 10/22/17 05:30 RBC 3.09 Mil/cmm (3.80-5.80) L 10/22/17 05:30 Hgb 9.3 gm/dL (12-16) L 10/22/17 05:30 Hct 27.0 % (41.0-60) L 10/22/17 05:30 MCV 87.3 fl (80-99) 10/22/17 05:30 MCH 30.1 pg (27.0-31.0) 10/22/17 05:30 MCHC Differential 34.4 pg (28.0-36.0) 10/22/17 05:30 RDW 16.1 % (11.5-20.0) 10/22/17 05:30 Plt Count 275 Th/cmm (150-400) 10/22/17 05:30 MPV 7.8 fl 10/22/17 05:30 Neutrophils % 65.9 % (40.0-80.0) 10/22/17 05:30 Band Neutrophils % 2 % (0-10) 10/16/17 08:15 Lymphocytes % 18.9 % (20.0-50.0) L 10/22/17 05:30 Monocytes % 10.5 % (2.0-10.0) H 10/22/17 05:30 Eosinophils % 3.7 % (0.0-5.0) 10/22/17 05:30 Basophils % 1.0 % (0.0-2.0) 10/22/17 05:30 Neutrophils (Manual) 83 % (40-80) H 10/16/17 08:15 Lymphocytes 6 % (20-50) L 10/16/17 08:15 Monocytes 8 % (2-10) 10/16/17 08:15 Basophils 1 % (0-3) 10/16/17 08:15 Platelet Estimate ADEQUATE (NORMAL) 10/16/17 08:15 Eos Smear Source URINE 10/17/17 17:40 Eos Smear Total Cells NONE SEEN (NONE SEEN) 10/17/17 17:40 PT 12.0 SECONDS (9.5-11.5) H 10/17/17 13:28 INR 1.14 (0.5-1.4) 10/17/17 13:28 PTT (Actin FS) 26.0 SECONDS (26.0-38.0) 10/17/17 13:28 Specimen Source Arterial 10/17/17 09:33 Sample Site Right Radial 10/17/17 09:33 pH 7.40 (7.35-7.45) 10/17/17 09:33 pCO2 37.0 mmHg (35.0-45.0) 10/17/17 09:33 pO2 84.0 mmHg (80.0-100.0) 10/17/17 09:33 HCO3 23.7 mEq/L (20.0-26.0) 10/17/17 09:33 Base Excess -1.6 mEq/L (-3.0-3.0) 10/17/17 09:33 O2 Saturation 96.0 % (92.0-100.0) 10/17/17 09:33 Franki Test YES 10/17/17 09:33 Vent Rate NA 10/17/17 09:33 Inspired O2 28 10/17/17 09:33 Tidal Volume NA 10/17/17 09:33 PEEP NA 10/17/17 09:33 Pressure (ins/psv/peep) NA 10/17/17 09:33 Critical Value E.COOL 10/17/17 09:33 Sodium 142 mEq/L (136-145) 10/22/17 05:30 Potassium 4.0 mEq/L (3.5-5.1) 10/22/17 05:30 Chloride 111 mEq/L (98-107) H 10/22/17 05:30 Carbon Dioxide 25.4 mEq/L (21.0-31.0) 10/22/17 05:30 Anion Gap 9.6 (7.0-16.0) 10/22/17 05:30 BUN 25 mg/dL (7-25) 10/22/17 05:30 Creatinine 0.8 mg/dL (0.7-1.3) 10/22/17 05:30 Est GFR ( Amer) TNP 10/22/17 05:30 Est GFR (Non-Af Amer) TNP 10/22/17 05:30 BUN/Creatinine Ratio 31.3 10/22/17 05:30 Glucose 109 mg/dL (70-105) H 10/22/17 05:30 Whole Bld Lactic Acid 1.47 mmol/L (0.60-1.99) 10/16/17 08:15 Uric Acid 3.7 mg/dL (4.4-7.6) L 10/17/17 04:20 Calcium 8.3 mg/dL (8.6-10.3) L 10/22/17 05:30 Phosphorus 3.1 mg/dL (2.5-5.0) 10/17/17 04:20 Magnesium 1.8 mg/dL (1.9-2.7) L 10/20/17 04:35 Total Bilirubin 0.4 mg/dL (0.3-1.0) 10/21/17 09:05 AST 55 U/L (13-39) H 10/21/17 09:05 ALT 43 U/L (7-52) 10/21/17 09:05 Alkaline Phosphatase 139 U/L (34-104) H 10/21/17 09:05 Ammonia 43 umol/L (16-53) 10/17/17 04:20 B-Natriuretic Peptide 83.6 pg/mL (5.0-100.0) 10/16/17 08:15 Total Protein 4.9 gm/dL (6.0-8.3) L 10/21/17 09:05 Albumin 2.3 gm/dL (4.2-5.5) L 10/21/17 09:05 Globulin 2.6 gm/dL 10/21/17 09:05 Albumin/Globulin Ratio 0.9 (1.0-1.8) L 10/21/17 09:05 Urine Source MANJAR[place]Z [place] 10/16/17 09:00 Urine Color YELLOW 10/16/17 09:00 Urine Clarity HAZY (CLEAR) 10/16/17 09:00 Urine pH 8.5 (4.6 - 8.0) 10/16/17 09:00 Ur Specific [place] <= 1.005 (1.005-1.030) 05/03/18 09:00 Urine Protein >=300 mg/dL (NEGATIVE) 10/16/17 09:00 Urine Glucose (UA) NEGATIVE mg/dL (NEGATIVE) 10/16/17 09:00 Urine Ketones NEGATIVE mg/dL (NEGATIVE) 10/16/17 09:00 Urine Blood SMALL (NEGATIVE) H 10/16/17 09:00 Urine Nitrate NEGATIVE (NEGATIVE) 10/16/17 09:00 Urine Bilirubin NEGATIVE (NEGATIVE) 10/16/17 09:00 Urine Urobilinogen 0.2 E.U./dL (0.2 - 1.0) 10/16/17 09:00 Ur Leukocyte Esterase MODERATE (NEGATIVE) H 10/16/17 09:00 Urine RBC 2-5 /hpf (0-5) H 10/16/17 09:00 Urine WBC 6-10 /hpf (0-5) 10/16/17 09:00 Ur Epithelial Cells FEW /lpf (FEW) 10/16/17 09:00 Triple Phos Crystals MANY /hpf (FEW) 10/16/17 09:00 Urine Bacteria MODERATE /hpf (NONE SEEN) H 10/16/17 09:00 Urine Osmolality 509 mOsmol/kg 10/18/17 15:30 Ur Random Sodium 88 mmol/L 10/17/17 17:40 Urine Creatinine 39.0 mg/dl (39.0-259.0) 10/17/17 17:40 Urine Microalbumin 116 10/16/17 09:00 Microalb/Creat Ratio 299.7 10/16/17 09:00 - Physical Exam Vitals and I&O: Vital Signs Temp 98.5 F 10/22/17 04:48 Pulse 89 10/22/17 07:43 Resp 18 10/22/17 07:43 BP 114/50 10/22/17 04:48 Pulse Ox 98 10/22/17 07:43 Intake & Output 10/21/17 10/22/17 10/22/17 18:59 06:59 18:59 Intake Total 762 940 Output Total 500 Balance 762 440 Weight (lbs) 61.326 kg Intake: Intake, IV Amount 762 100 D5-0.45NS 1,000 ml @ 60 612 mls/hr IV .[id number] ONE Rx #:[id number] Piperacillin Sodium/ 150 100 Tazobact 2.25 gm In Sodium Chloride 0.9% 50 ml @ 100 mls/hr IV Q6HR [facility] Rx#:[id number] Tube Feeding 720 Other 120 Output: Urine 500 Other: # Bowel Movements 1 Weight Source Bedscale Active Medications: Current Medications Acetaminophen (Tylenol) 650 mg GT Q4H PRN PRN Reason: Mild pain, temp above 100 Stop: 12/16/17 08:29 Al Hydrox/Mg Hydrox/Simethicone (Maalox) 30 ml GT Q4HR PRN PRN Reason: GI distress Stop: 12/16/17 08:29 Albuterol/Ipratropium (Duoneb Neb) 3 ml HHN [id number] [facility] Stop: 12/15/17 14:59 Last Admin: 10/22/17 07:26 Dose: 3 ml Albuterol/Ipratropium (Duoneb Neb) 3 ml HHN Q4H PRN PRN Reason: Wheezing Stop: 12/16/17 08:29 Amlodipine Besylate (Norvasc) 5 mg GT DAILY [facility] Stop: 12/16/17 08:59 Last Admin: 10/21/17 08:36 Dose: Not Given Ascorbic Acid (Vitamin C) 500 mg GT DAILY [facility] Stop: 12/16/17 08:59 Last Admin: 10/21/17 08:33 Dose: 500 mg Bisacodyl (Dulcolax 10 Mg Supp) 10 mg RC DAILY PRN PRN Reason: Constipation Stop: 12/16/17 08:29 Budesonide (Pulmicort) 0.5 mg HHN BIDRT [facility] Stop: 12/15/17 18:59 Last Admin: 10/22/17 07:26 Dose: 0.5 mg Diphenhydramine HCl (Benadryl 50 Mg/Ml) 50 mg IM Q4HR PRN PRN Reason: Agitation Stop: 12/16/17 08:29 Docusate Sodium (Colace) 100 mg PO DAILY [facility] Stop: 12/16/17 08:59 Last Admin: 10/21/17 08:33 Dose: 100 mg Donepezil HCl (Aricept) 10 mg GT HS [facility] Stop: 12/16/17 20:59 Last Admin: 10/21/17 21:29 Dose: 10 mg Enoxaparin Sodium (Lovenox) 30 mg SUBQ Q12H [facility] Stop: 12/17/17 16:19 Last Admin: 10/22/17 04:54 Dose: 30 mg Ferrous Sulfate (Iron) 325 mg PO BID ANG Stop: 12/16/17 08:59 Last Admin: 10/21/17 16:04 Dose: 325 mg Piperacillin Sod/Tazobactam (Sod 2.25 gm/ Sodium Chloride) 50 mls @ 100 mls/hr IV Q6HR ANG Stop: 12/15/17 12:59 Last Infusion: 10/22/17 06:06 Dose: Infused Vancomycin HCl 1.25 gm/ Sodium (Chloride) 250 mls @ 165 mls/hr IV Q24H ANG Stop: 12/21/17 08:59 Lactobacillus Rhamnosus (Culturelle 15b) 1 each GT DAILY ANG Stop: 12/16/17 08:59 Last Admin: 10/21/17 08:33 Dose: 1 each Latanoprost (Xalatan 0.005% Ophth Soln) 1 drop EACH EYE HS ANG Stop: 12/16/17 20:59 Last Admin: 10/22/17 07:13 Dose: 1 drop Lorazepam (Ativan) 1 mg GT Q6HR PRN; Protocol PRN Reason: Agitation Stop: 12/16/17 08:29 Losartan Potassium (Cozaar) 50 mg GT DAILY ANG Stop: 12/16/17 08:59 Last Admin: 10/21/17 08:36 Dose: Not Given Magnesium Hydroxide (Milk Of Magnesia) 30 ml PO HS PRN PRN Reason: Constipation Stop: 12/16/17 08:29 Memantine (Namenda) 5 mg GT BID ANG Stop: 12/16/17 08:59 Last Admin: 10/21/17 16:04 Dose: 5 mg Mineral Oil (Mineral Oil 30 Ml) 30 ml GT TID ANG Stop: 12/16/17 08:59 Last Admin: 10/21/17 21:29 Dose: 30 ml Miscellaneous (Zosyn Iv Per Pharmacy) 1 ea MC PRN PRN PRN Reason: PROTOCOL Stop: 12/15/17 10:42 Miscellaneous (Vancomycin Iv Per Pharmacy) 1 ea MC DAILY ANG Stop: 12/20/17 10:59 Multivitamins/Vitamin C (Theragran) 1 tab GT DAILY ANG Stop: 12/16/17 08:59 Last Admin: 10/21/17 08:33 Dose: 1 tab Mupirocin (Bactroban Oint) 1 appl NS BID ANG Stop: 10/22/17 09:01 Last Admin: 10/21/17 16:06 Dose: 1 appl Olanzapine (Zyprexa) 5 mg GT HS ANG PRN Reason: Protocol Stop: 12/16/17 20:59 Last Admin: 10/21/17 21:30 Dose: 5 mg Olanzapine (Zyprexa) 2.5 mg GT DAILY ANG PRN Reason: Protocol Stop: 12/16/17 08:59 Pantoprazole Sodium (Protonix) 40 mg PO DAILY ANG Stop: 12/19/17 08:59 Last Admin: 10/21/17 08:33 Dose: 40 mg Promethazine HCl/Dextromethorphan (Phenergan Dm 6.25/15mg-5 Ml) 5 ml PO TID PRN PRN Reason: Cough Stop: 12/19/17 08:36 Last Admin: 10/21/17 08:49 Dose: 5 ml Sodium Phosphate (Fleet Enema) 135 ml RC DAILY PRN PRN Reason: Constipation Stop: 12/16/17 08:29 Tamsulosin HCl (Flomax) 0.4 mg GT HS ANG Stop: 12/16/17 20:59 Last Admin: 10/21/17 21:29 Dose: 0.4 mg Zolpidem Tartrate (Ambien) 5 mg GT HS PRN PRN Reason: Insomnia Stop: 12/16/17 08:29 General: Alert, No acute distress, Other (confused) HEENT: Atraumatic, PERRLA, EOMI Neck: Supple, no JVD, no Thyromegaly Cardiovascular: Regular rate, Normal S1, Normal S2 Lungs: Other (improved breath sounds) Abdomen: Bowel sounds, Soft Extremities: no Clubbing, no Cyanosis, no Edema Neurological: Sensation intact Skin: no Rash Psych/Mental Status: Mood NL - Procedures Procedures: Procedures Procedure Code Date EGD ENDO MUCOSAL RESECTION 65510 09/08/[address] GASTROSTOMY TUBE 96568 09/08/17 EXCISION OF STOMACH, ENDO, DIAGN [id number] 09/08/17 INSERTION OF FEEDING DEVICE INTO STOMACH, PERC APPROACH [id number] 09/08/17 INTRODUCTION OF SERUM/TOX/VACCINE INTO MUSCLE, PERC APPROACH [id number] 09/08/17 Assessment/Plan - Assessment Assessment: +MRSA Sputum ALOC secondary to Metabolic Encephalopathy Sepsis improving Anemia Hypernatremia improving Acute Renal Insufficiency improving GIANNI PNA possible aspiration. HTN Asthma COPD PUD GERD s/p gastrostomy tube placement dysphagia benign prostatic hypertrophy glaucoma psychosis insomnia anxiety DVT to LE Enlarge Prostate Right Sided Hydronephrosis hypokalemia hypomagnesemia - Plan Plan: Admit to ICU Pulmonary consult Dr Raisa Katz Nephrology consult Dr. Morales Neurology consult Dr. Serrano IV hydration IV Zosyn & Vancomycin IV repeat CBC,CMP tomorrow blood culture x2 urine culture x2 sputum culture x2 Lovenox SQ q12 PO K and Mg check Mg level repeat CBC tomorrow PICC Line Placement Nutritional Asmnt/Malnutr-PDOC - Dietary Evaluation Malnutrition Findings (Please click <Entered> for more info): Nutritional Asmnt/Malnutrition Start: 10/17/17 14: 29 Text: Status: Complete Freq: Document 10/17/17 14:29 LCKISHORE (Rec: 10/17/17 14:49 LCHEN [id number]) Nutritional Asmnt/Malnutrition Patient General Information Nutritional Screening High Risk Diagnosis ALOC, LEFT lower lobe PNA, Acute renal insuff Pertinent Medical Hx/Surgical Hx HTN, asthma/COPD, PUD/GERD, s/ p PNA, dysphagia, anemia, BPH, glaucolma, psychosis, insomnia, anxiety, dementia Subjective Information Consult received for wounds. Pt seen resting in bed at time of visit. Pt on NPO, TF not initiated at this time. Current Diet Order/ Nutrition Support Diabetisource AC 60ml/hr x 20hr Pertinent Medications vit C, D5w, colace, iron, culturelle, theragran, piperacillin Pertinent Labs 5/4 Na 158, K 4.3, Cl 128, BUN 59, Cr 1.4, glucose 121 5/3 Na 159, K 4.7, Cl 129, BUN 87, Cr 2.0, glucose 119 Nutritional Hx/Data Height 1.7 m Height (Calculated Centimeters) 170.2 Current Weight (lbs) 58.967 kg Weight (Calculated Kilograms) 59.0 Weight (Calculated Grams) 61376.0 [place] Body Weight 148 Body Mass Index (BMI) 20.3 Weight Status Approriate GI Symptoms GI Symptoms None Last BM none Difficult in: None Usual diet at home glucerna 1.2 at 60ml/hr x 20hr at SN[facility] per chart Skin Integrity/Comment: scar to sacrum, pressure area to right heel, laceration to left hip non-pitting to left lower extremity and left foot, pitting 1+ to right lower extremity and right foot. Current %PO Negligible < 25% Estimated Nutritional Goals BEE in Kcals: Using Current wt Calories/Kcals/Kg 25-30 Kcals Calculated [id number] Protein: Using Current wt Protein g/k-1.2 monitor renal labs Protein Calculated 59-71 Fluid: ml per MD Nutritional Problem 1. Problem Problem altered nutrition related labs Etiology electrolytes imbalance, dx of acute renal insuff, endocrine dysfunction Signs/Symptoms: Na 158, Cl 128, BUN 59, Cr 1.4 , glucose 121 Intervention/Recommendation Comments 1. Start TF as ordered. It will provide 1440kcal and 72g protein, meeting 100% of nutritional needs. 3. Monitor TF tolerance, wt daily, skin integrity and labs 3. F/U as high risk in 2-3 days, 10/19-10/20 Expected Outcomes/Goals Expected Outcomes/Goals 1. pt to meet at least 75% of nutritional needs. 2. Wt stability, skin to remain intact, labs to approach WNL.
[2017-10-22] MEDS: Ferrous Sulfate 325 MG TAB PO SCH ×2 (09:57→17:37)
[2017-10-22] MEDS: Lactobacillus Rhamnosus GG 15 Billion CFU CAP.SPRINK GT SCH (09:57)
[2017-10-22] MEDS: Multivitamin Tab GT SCH (09:58)
[2017-10-22] MEDS: Pantoprazole 40 mg/Packet PO SCH (09:59)
--- NOTE | 2017-10-22 10:06 | Infectious Disease Prog Note ---
Infectious Disease Subjective - Review of Systems Service Date: 10/22/17 Subjective: There is no new change. Infectious Disease Objective - Results Result Diagrams: 10/22/17 05:30 10/22/17 05:30 Recent Labs: Laboratory Last Values WBC 12.2 Th/cmm (4.8-10.8) H 10/22/17 05:30 RBC 3.09 Mil/cmm (3.80-5.80) L 10/22/17 05:30 Hgb 9.3 gm/dL (12-16) L 10/22/17 05:30 Hct 27.0 % (41.0-60) L 10/22/17 05:30 MCV 87.3 fl (80-99) 10/22/17 05:30 MCH 30.1 pg (27.0-31.0) 10/22/17 05:30 MCHC Differential 34.4 pg (28.0-36.0) 10/22/17 05:30 RDW 16.1 % (11.5-20.0) 10/22/17 05:30 Plt Count 275 Th/cmm (150-400) 10/22/17 05:30 MPV 7.8 fl 10/22/17 05:30 Neutrophils % 65.9 % (40.0-80.0) 10/22/17 05:30 Band Neutrophils % 2 % (0-10) 10/16/17 08:15 Lymphocytes % 18.9 % (20.0-50.0) L 10/22/17 05:30 Monocytes % 10.5 % (2.0-10.0) H 10/22/17 05:30 Eosinophils % 3.7 % (0.0-5.0) 10/22/17 05:30 Basophils % 1.0 % (0.0-2.0) 10/22/17 05:30 Neutrophils (Manual) 83 % (40-80) H 10/16/17 08:15 Lymphocytes 6 % (20-50) L 10/16/17 08:15 Monocytes 8 % (2-10) 10/16/17 08:15 Basophils 1 % (0-3) 10/16/17 08:15 Platelet Estimate ADEQUATE (NORMAL) 10/16/17 08:15 Eos Smear Source URINE 10/17/17 17:40 Eos Smear Total Cells NONE SEEN (NONE SEEN) 10/17/17 17:40 PT 12.0 SECONDS (9.5-11.5) H 10/17/17 13:28 INR 1.14 (0.5-1.4) 10/17/17 13:28 PTT (Actin FS) 26.0 SECONDS (26.0-38.0) 10/17/17 13:28 Specimen Source Arterial 10/17/17 09:33 Sample Site Right Radial 10/17/17 09:33 pH 7.40 (7.35-7.45) 10/17/17 09:33 pCO2 37.0 mmHg (35.0-45.0) 10/17/17 09:33 pO2 84.0 mmHg (80.0-100.0) 10/17/17 09:33 HCO3 23.7 mEq/L (20.0-26.0) 10/17/17 09:33 Base Excess -1.6 mEq/L (-3.0-3.0) 10/17/17 09:33 O2 Saturation 96.0 % (92.0-100.0) 10/17/17 09:33 Franki Test YES 10/17/17 09:33 Vent Rate NA 10/17/17 09:33 Inspired O2 28 10/17/17 09:33 Tidal Volume NA 10/17/17 09:33 PEEP NA 10/17/17 09:33 Pressure (ins/psv/peep) NA 10/17/17 09:33 Critical Value E.COOL 10/17/17 09:33 Sodium 142 mEq/L (136-145) 10/22/17 05:30 Potassium 4.0 mEq/L (3.5-5.1) 10/22/17 05:30 Chloride 111 mEq/L (98-107) H 10/22/17 05:30 Carbon Dioxide 25.4 mEq/L (21.0-31.0) 10/22/17 05:30 Anion Gap 9.6 (7.0-16.0) 10/22/17 05:30 BUN 25 mg/dL (7-25) 10/22/17 05:30 Creatinine 0.8 mg/dL (0.7-1.3) 10/22/17 05:30 Est GFR ( Amer) TNP 10/22/17 05:30 Est GFR (Non-Af Amer) TNP 10/22/17 05:30 BUN/Creatinine Ratio 31.3 10/22/17 05:30 Glucose 109 mg/dL (70-105) H 10/22/17 05:30 Whole Bld Lactic Acid 1.47 mmol/L (0.60-1.99) 10/16/17 08:15 Uric Acid 3.7 mg/dL (4.4-7.6) L 10/17/17 04:20 Calcium 8.3 mg/dL (8.6-10.3) L 10/22/17 05:30 Phosphorus 3.1 mg/dL (2.5-5.0) 10/17/17 04:20 Magnesium 1.9 mg/dL (1.9-2.7) 10/22/17 05:30 Total Bilirubin 0.4 mg/dL (0.3-1.0) 10/21/17 09:05 AST 55 U/L (13-39) H 10/21/17 09:05 ALT 43 U/L (7-52) 10/21/17 09:05 Alkaline Phosphatase 139 U/L (34-104) H 10/21/17 09:05 Ammonia 43 umol/L (16-53) 10/17/17 04:20 B-Natriuretic Peptide 83.6 pg/mL (5.0-100.0) 10/16/17 08:15 Total Protein 4.9 gm/dL (6.0-8.3) L 10/21/17 09:05 Albumin 2.3 gm/dL (4.2-5.5) L 10/21/17 09:05 Globulin 2.6 gm/dL 10/21/17 09:05 Albumin/Globulin Ratio 0.9 (1.0-1.8) L 10/21/17 09:05 Urine Source [place] 10/16/17 09:00 Urine Color YELLOW 10/16/17 09:00 Urine Clarity HAZY (CLEAR) 10/16/17 09:00 Urine pH 8.5 (4.6 - 8.0) 10/16/17 09:00 Ur Specific [place] <= 1.005 (1.005-1.030) 10/16/17 09:00 Urine Protein >=300 mg/dL (NEGATIVE) 10/16/17 09:00 Urine Glucose (UA) NEGATIVE mg/dL (NEGATIVE) 10/16/17 09:00 Urine Ketones NEGATIVE mg/dL (NEGATIVE) 10/16/17 09:00 Urine Blood SMALL (NEGATIVE) H 10/16/17 09:00 Urine Nitrate NEGATIVE (NEGATIVE) 10/16/17 09:00 Urine Bilirubin NEGATIVE (NEGATIVE) 10/16/17 09:00 Urine Urobilinogen 0.2 E.U./dL (0.2 - 1.0) 10/16/17 09:00 Ur Leukocyte Esterase MODERATE (NEGATIVE) H 10/16/17 09:00 Urine RBC 2-5 /hpf (0-5) H 10/16/17 09:00 Urine WBC 6-10 /hpf (0-5) 10/16/17 09:00 Ur Epithelial Cells FEW /lpf (FEW) 10/16/17 09:00 Triple Phos Crystals MANY /hpf (FEW) 10/16/17 09:00 Urine Bacteria MODERATE /hpf (NONE SEEN) H 10/16/17 09:00 Urine Osmolality 509 mOsmol/kg 10/18/17 15:30 Ur Random Sodium 88 mmol/L 10/17/17 17:40 Urine Creatinine 39.0 mg/dl (39.0-259.0) 10/17/17 17:40 Urine Microalbumin 116 10/16/17 09:00 Microalb/Creat Ratio 299.7 10/16/17 09:00 - Physical Exam Vitals and I&O: Vital Signs Temp 98.5 F 10/22/17 04:48 Pulse 79 10/22/17 09:57 Resp 18 10/22/17 07:43 BP 112/41 10/22/17 09:57 Pulse Ox 98 10/22/17 07:43 Intake & Output 10/21/17 10/22/17 10/22/17 18:59 06:59 18:59 Intake Total 762 940 Output Total 500 Balance 762 440 Weight (lbs) 61.326 kg Intake: Intake, IV Amount 762 100 D5-0.45NS 1,000 ml @ 60 612 mls/hr IV .[id number] ONE Rx #:[id number] Piperacillin Sodium/ 150 100 Tazobact 2.25 gm In Sodium Chloride 0.9% 50 ml @ 100 mls/hr IV Q6HR ANG Rx#:[id number] Tube Feeding 720 Other 120 Output: Urine 500 Other: # Bowel Movements 1 Weight Source Bedscale Active Medications: Current Medications Acetaminophen (Tylenol) 650 mg GT Q4H PRN PRN Reason: Mild pain, temp above 100 Stop: 12/16/17 08:29 Al Hydrox/Mg Hydrox/Simethicone (Maalox) 30 ml GT Q4HR PRN PRN Reason: GI distress Stop: 12/16/17 08:29 Albuterol/Ipratropium (Duoneb Neb) 3 ml HHN [id number] [facility] Stop: 12/15/17 14:59 Last Admin: 10/22/17 07:26 Dose: 3 ml Albuterol/Ipratropium (Duoneb Neb) 3 ml HHN Q4H PRN PRN Reason: Wheezing Stop: 12/16/17 08:29 Amlodipine Besylate (Norvasc) 5 mg GT DAILY [facility] Stop: 12/16/17 08:59 Last Admin: 10/22/17 09:56 Dose: Not Given Ascorbic Acid (Vitamin C) 500 mg GT DAILY [facility] Stop: 12/16/17 08:59 Last Admin: 10/22/17 09:56 Dose: 500 mg Bisacodyl (Dulcolax 10 Mg Supp) 10 mg RC DAILY PRN PRN Reason: Constipation Stop: 12/16/17 08:29 Budesonide (Pulmicort) 0.5 mg HHN BIDRT [facility] Stop: 12/15/17 18:59 Last Admin: 10/22/17 07:26 Dose: 0.5 mg Diphenhydramine HCl (Benadryl 50 Mg/Ml) 50 mg IM Q4HR PRN PRN Reason: Agitation Stop: 12/16/17 08:29 Docusate Sodium (Colace) 100 mg PO DAILY [facility] Stop: 12/16/17 08:59 Last Admin: 10/22/17 09:57 Dose: 100 mg Donepezil HCl (Aricept) 10 mg GT HS [facility] Stop: 12/16/17 20:59 Last Admin: 10/21/17 21:29 Dose: 10 mg Enoxaparin Sodium (Lovenox) 30 mg SUBQ Q12H [facility] Stop: 12/17/17 16:19 Last Admin: 10/22/17 04:54 Dose: 30 mg Ferrous Sulfate (Iron) 325 mg PO BID ANG Stop: 12/16/17 08:59 Last Admin: 10/22/17 09:57 Dose: 325 mg Piperacillin Sod/Tazobactam (Sod 2.25 gm/ Sodium Chloride) 50 mls @ 100 mls/hr IV Q6HR ANG Stop: 12/15/17 12:59 Last Infusion: 10/22/17 06:06 Dose: Infused Vancomycin HCl 1.25 gm/ Sodium (Chloride) 250 mls @ 165 mls/hr IV Q24H ANG Stop: 12/21/17 08:59 Lactobacillus Rhamnosus (Culturelle 15b) 1 each GT DAILY ANG Stop: 12/16/17 08:59 Last Admin: 10/22/17 09:57 Dose: 1 each Latanoprost (Xalatan 0.005% Oph Soln) 1 drop EACH EYE HS [facility] Stop: 12/16/17 20:59 Last Admin: 10/22/17 07:13 Dose: 1 drop Lorazepam (Ativan) 1 mg GT Q6HR PRN; Protocol PRN Reason: Agitation Stop: 12/16/17 08:29 Losartan Potassium (Cozaar) 50 mg GT DAILY ANG Stop: 12/16/17 08:59 Last Admin: 10/22/17 09:57 Dose: Not Given Magnesium Hydroxide (Milk Of Magnesia) 30 ml PO HS PRN PRN Reason: Constipation Stop: 12/16/17 08:29 Memantine (Namenda) 5 mg GT BID ANG Stop: 12/16/17 08:59 Last Admin: 10/22/17 09:57 Dose: 5 mg Mineral Oil (Mineral Oil 30 Ml) 30 ml GT TID ANG Stop: 12/16/17 08:59 Last Admin: 10/22/17 09:58 Dose: 30 ml Miscellaneous (Zosyn Iv Per Pharmacy) 1 ea MC PRN PRN PRN Reason: PROTOCOL Stop: 12/15/17 10:42 Miscellaneous (Vancomycin Iv Per Pharmacy) 1 ea MC DAILY ANG Stop: 12/20/17 10:59 Multivitamins/Vitamin C (Theragran) 1 tab GT DAILY ANG Stop: 12/16/17 08:59 Last Admin: 10/22/17 09:58 Dose: 1 tab Olanzapine (Zyprexa) 5 mg GT HS ANG PRN Reason: Protocol Stop: 12/16/17 20:59 Last Admin: 10/21/17 21:30 Dose: 5 mg Olanzapine (Zyprexa) 2.5 mg GT DAILY ANG PRN Reason: Protocol Stop: 12/16/17 08:59 Last Admin: 10/22/17 09:56 Dose: 2.5 mg Pantoprazole Sodium (Protonix) 40 mg PO DAILY ANG Stop: 12/19/17 08:59 Last Admin: 10/22/17 09:59 Dose: 40 mg Promethazine HCl/Dextromethorphan (Phenergan Dm 6.25/15mg-5 Ml) 5 ml PO TID PRN PRN Reason: Cough Stop: 12/19/17 08:36 Last Admin: 10/21/17 08:49 Dose: 5 ml Sodium Phosphate (Fleet Enema) 135 ml RC DAILY PRN PRN Reason: Constipation Stop: 12/16/17 08:29 Tamsulosin HCl (Flomax) 0.4 mg GT HS ANG Stop: 12/16/17 20:59 Last Admin: 10/21/17 21:29 Dose: 0.4 mg Zolpidem Tartrate (Ambien) 5 mg GT HS PRN PRN Reason: Insomnia Stop: 12/16/17 08:29 General: no acute distress, cachectic HEENT: atraumatic, normocephalic, PERRLA Neck: supple, no thyromegaly Cardiovascular: S1S2, regular Lungs: clear to percussion, crackles Abdomen: soft, no tender, no distended, no mass Extremities: no cyanosis, no clubbing, no edema Neurological: other (confused) Skin: intact - Procedures Procedures: Procedures Procedure Code Date EGD ENDO MUCOSAL RESECTION 56686 09/08/[address] GASTROSTOMY TUBE 12950 09/08/17 EXCISION OF STOMACH, ENDO, DIAGN [id number] 09/08/17 INSERTION OF FEEDING DEVICE INTO STOMACH, PERC APPROACH [id number] 09/08/17 INTRODUCTION OF SERUM/TOX/VACCINE INTO MUSCLE, PERC APPROACH [id number] 09/08/17 Infectious Disease Assmt/Plan - Assessment Assessment: 1. MRSA pneumonia. LLL. 2. Leukocytosis. 3. UTI. 4. psychosis. 5. Anxiety disorder. 6. hypertension. 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 8. COPD. 9. History of aspiration pneumonia. 10. GERD, peptic ulcer disease. 11. BPH. 12. Dysphagia. 13. G-tube placement. 14. Dementia. - Plan Plan: Continue vancomycin IV and Zosyn. Nutritional Asmnt/Malnutr-PDOC - Dietary Evaluation Malnutrition Findings (Please click <Entered> for more info): Nutritional Asmnt/Malnutrition Start: 10/17/17 14: 29 Text: Status: Complete Freq: Document 10/17/17 14:29 LOCATED [facility]IN [facility] (Rec: 10/17/17 14:49 [email or web address] Nutritional Asmnt/Malnutrition Patient General Information Nutritional Screening High Risk Diagnosis ALOC, LEFT lower lobe PNA, Acute renal insuff Pertinent Medical Hx/Surgical Hx HTN, asthma/COPD, PUD/GERD, s/ p PNA, dysphagia, anemia, BPH, glaucolma, psychosis, insomnia, anxiety, dementia Subjective Information Consult received for wounds. Pt seen resting in bed at time of visit. Pt on NPO, TF not initiated at this time. Current Diet Order/ Nutrition Support Diabetisource AC 60ml/hr x 20hr Pertinent Medications vit C, D5w, colace, iron, culturelle, theragran, piperacillin Pertinent Labs 5/4 Na 158, K 4.3, Cl 128, BUN 59, Cr 1.4, glucose 121 5/3 Na 159, K 4.7, Cl 129, BUN 87, Cr 2.0, glucose 119 Nutritional Hx/Data Height 1.7 m Height (Calculated Centimeters) 170.2 Current Weight (lbs) 58.967 kg Weight (Calculated Kilograms) 59.0 Weight (Calculated Grams) 28257.0 [place] Body Weight 148 Body Mass Index (BMI) 20.3 Weight Status Approriate GI Symptoms GI Symptoms None Last BM none Difficult in: None Usual diet at home glucerna 1.2 at 60ml/hr x 20hr at SNF per chart Skin Integrity/Comment: scar to sacrum, pressure area to right heel, laceration to left hip non-pitting to left lower extremity and left foot, pitting 1+ to right lower extremity and right foot. Current %PO Negligible < 25% Estimated Nutritional Goals BEE in Kcals: Using Current wt Calories/Kcals/Kg 25-30 Kcals Calculated 6876-2617 Protein: Using Current wt Protein g/k-1.2 monitor renal labs Protein Calculated 59-71 Fluid: ml per MD Nutritional Problem 1. Problem Problem altered nutrition related labs Etiology electrolytes imbalance, dx of acute renal insuff, endocrine dysfunction Signs/Symptoms: Na 158, Cl 128, BUN 59, Cr 1.4 , glucose 121 Intervention/Recommendation Comments 1. Start TF as ordered. It will provide 1440kcal and 72g protein, meeting 100% of nutritional needs. 3. Monitor TF tolerance, wt daily, skin integrity and labs 3. F/U as high risk in 2-3 days, 10/19-10/20 Expected Outcomes/Goals Expected Outcomes/Goals 1. pt to meet at least 75% of nutritional needs. 2. Wt stability, skin to remain intact, labs to approach WNL.
--- NOTE | 2017-10-22 12:59 | Progress Notes ---
DATE: 10/22/2017 Case discussed with staff of the patient, reviewed records. Still he is always in bed. Unable to talk or express himself. He has been this way for a long period of time even before hospitalization. He is demented, confused. He is recovering from pneumonia. His medical condition is critical. He has dementia as well. He has episodes where he gets aggressive, irritable; however, in general, these are not as prominent. He is on medication for dementia, which is Aricept 10 mg at bedtime, Namenda 5 mg twice a day. He has a G-tube. No side effects to the medication and no extrapyramidal symptoms. He will be sent to a nursing facility as soon as he is better. Thank you very much for allowing me to participate in the care of this most interesting gentleman. JOB# [id number]
--- NOTE | 2017-10-22 13:49 | General Progress Note ---
Subjective - Review of Systems Service Date: 10/22/17 Subjective: arousable, comfortable Objective - Results Result Diagrams: 10/22/17 05:30 10/22/17 05:30 Recent Labs: Laboratory Last Values WBC 12.2 Th/cmm (4.8-10.8) H 10/22/17 05:30 RBC 3.09 Mil/cmm (3.80-5.80) L 10/22/17 05:30 Hgb 9.3 gm/dL (12-16) L 10/22/17 05:30 Hct 27.0 % (41.0-60) L 10/22/17 05:30 MCV 87.3 fl (80-99) 10/22/17 05:30 MCH 30.1 pg (27.0-31.0) 10/22/17 05:30 MCHC Differential 34.4 pg (28.0-36.0) 10/22/17 05:30 RDW 16.1 % (11.5-20.0) 10/22/17 05:30 Plt Count 275 Th/cmm (150-400) 10/22/17 05:30 MPV 7.8 fl 10/22/17 05:30 Neutrophils % 65.9 % (40.0-80.0) 10/22/17 05:30 Band Neutrophils % 2 % (0-10) 10/16/17 08:15 Lymphocytes % 18.9 % (20.0-50.0) L 10/22/17 05:30 Monocytes % 10.5 % (2.0-10.0) H 10/22/17 05:30 Eosinophils % 3.7 % (0.0-5.0) 10/22/17 05:30 Basophils % 1.0 % (0.0-2.0) 10/22/17 05:30 Neutrophils (Manual) 83 % (40-80) H 10/16/17 08:15 Lymphocytes 6 % (20-50) L 10/16/17 08:15 Monocytes 8 % (2-10) 10/16/17 08:15 Basophils 1 % (0-3) 10/16/17 08:15 Platelet Estimate ADEQUATE (NORMAL) 10/16/17 08:15 Eos Smear Source URINE 10/17/17 17:40 Eos Smear Total Cells NONE SEEN (NONE SEEN) 10/17/17 17:40 PT 12.0 SECONDS (9.5-11.5) H 10/17/17 13:28 INR 1.14 (0.5-1.4) 10/17/17 13:28 PTT (Actin FS) 26.0 SECONDS (26.0-38.0) 10/17/17 13:28 Specimen Source Arterial 10/17/17 09:33 Sample Site Right Radial 10/17/17 09:33 pH 7.40 (7.35-7.45) 10/17/17 09:33 pCO2 37.0 mmHg (35.0-45.0) 10/17/17 09:33 pO2 84.0 mmHg (80.0-100.0) 10/17/17 09:33 HCO3 23.7 mEq/L (20.0-26.0) 10/17/17 09:33 Base Excess -1.6 mEq/L (-3.0-3.0) 10/17/17 09:33 O2 Saturation 96.0 % (92.0-100.0) 10/17/17 09:33 Franki Test YES 10/17/17 09:33 Vent Rate NA 10/17/17 09:33 Inspired O2 28 10/17/17 09:33 Tidal Volume NA 10/17/17 09:33 PEEP NA 10/17/17 09:33 Pressure (ins/psv/peep) NA 10/17/17 09:33 Critical Value E.COOL 10/17/17 09:33 Sodium 142 mEq/L (136-145) 10/22/17 05:30 Potassium 4.0 mEq/L (3.5-5.1) 10/22/17 05:30 Chloride 111 mEq/L (98-107) H 10/22/17 05:30 Carbon Dioxide 25.4 mEq/L (21.0-31.0) 10/22/17 05:30 Anion Gap 9.6 (7.0-16.0) 10/22/17 05:30 BUN 25 mg/dL (7-25) 10/22/17 05:30 Creatinine 0.8 mg/dL (0.7-1.3) 10/22/17 05:30 Est GFR ( Amer) TNP 10/22/17 05:30 Est GFR (Non-Af Amer) TNP 10/22/17 05:30 BUN/Creatinine Ratio 31.3 10/22/17 05:30 Glucose 109 mg/dL (70-105) H 10/22/17 05:30 Whole Bld Lactic Acid 1.47 mmol/L (0.60-1.99) 10/16/17 08:15 Uric Acid 3.7 mg/dL (4.4-7.6) L 10/17/17 04:20 Calcium 8.3 mg/dL (8.6-10.3) L 10/22/17 05:30 Phosphorus 3.1 mg/dL (2.5-5.0) 10/17/17 04:20 Magnesium 1.9 mg/dL (1.9-2.7) 10/22/17 05:30 Total Bilirubin 0.4 mg/dL (0.3-1.0) 10/21/17 09:05 AST 55 U/L (13-39) H 10/21/17 09:05 ALT 43 U/L (7-52) 10/21/17 09:05 Alkaline Phosphatase 139 U/L (34-104) H 10/21/17 09:05 Ammonia 43 umol/L (16-53) 10/17/17 04:20 B-Natriuretic Peptide 83.6 pg/mL (5.0-100.0) 10/16/17 08:15 Total Protein 4.9 gm/dL (6.0-8.3) L 10/21/17 09:05 Albumin 2.3 gm/dL (4.2-5.5) L 10/21/17 09:05 Globulin 2.6 gm/dL 10/21/17 09:05 Albumin/Globulin Ratio 0.9 (1.0-1.8) L 10/21/17 09:05 Urine Source [place] 10/16/17 09:00 Urine Color YELLOW 10/16/17 09:00 Urine Clarity HAZY (CLEAR) 10/16/17 09:00 Urine pH 8.5 (4.6 - 8.0) 10/16/17 09:00 Ur Specific [place] <= 1.005 (1.005-1.030) 10/16/17 09:00 Urine Protein >=300 mg/dL (NEGATIVE) 10/16/17 09:00 Urine Glucose (UA) NEGATIVE mg/dL (NEGATIVE) 10/16/17 09:00 Urine Ketones NEGATIVE mg/dL (NEGATIVE) 10/16/17 09:00 Urine Blood SMALL (NEGATIVE) H 10/16/17 09:00 Urine Nitrate NEGATIVE (NEGATIVE) 10/16/17 09:00 Urine Bilirubin NEGATIVE (NEGATIVE) 10/16/17 09:00 Urine Urobilinogen 0.2 E.U./dL (0.2 - 1.0) 10/16/17 09:00 Ur Leukocyte Esterase MODERATE (NEGATIVE) H 10/16/17 09:00 Urine RBC 2-5 /hpf (0-5) H 10/16/17 09:00 Urine WBC 6-10 /hpf (0-5) 10/16/17 09:00 Ur Epithelial Cells FEW /lpf (FEW) 10/16/17 09:00 Triple Phos Crystals MANY /hpf (FEW) 10/16/17 09:00 Urine Bacteria MODERATE /hpf (NONE SEEN) H 10/16/17 09:00 Urine Osmolality 509 mOsmol/kg 10/18/17 15:30 Ur Random Sodium 88 mmol/L 10/17/17 17:40 Urine Creatinine 39.0 mg/dl (39.0-259.0) 10/17/17 17:40 Urine Microalbumin 116 10/16/17 09:00 Microalb/Creat Ratio 299.7 10/16/17 09:00 - Physical Exam Vitals and I&O: Vital Signs Temp 98.5 F 10/22/17 04:48 Pulse 90 10/22/17 11:03 Resp 18 10/22/17 11:03 BP 112/41 10/22/17 09:57 Pulse Ox 98 10/22/17 11:03 Intake & Output 10/21/17 10/22/17 10/22/17 18:59 06:59 18:59 Intake Total 762 940 Output Total 500 Balance 762 440 Weight (lbs) 61.326 kg Intake: Intake, IV Amount 762 100 D5-0.45NS 1,000 ml @ 60 612 mls/hr IV .[id number] ONE Rx #:[id number] Piperacillin Sodium/ 150 100 Tazobact 2.25 gm In Sodium Chloride 0.9% 50 ml @ 100 mls/hr IV Q6HR ANG Rx#:[id number] Tube Feeding 720 Other 120 Output: Urine 500 Other: # Bowel Movements 1 Weight Source Bedscale Active Medications: Current Medications Acetaminophen (Tylenol) 650 mg GT Q4H PRN PRN Reason: Mild pain, temp above 100 Stop: 12/16/17 08:29 Al Hydrox/Mg Hydrox/Simethicone (Maalox) 30 ml GT Q4HR PRN PRN Reason: GI distress Stop: 12/16/17 08:29 Albuterol/Ipratropium (Duoneb Neb) 3 ml HHN [id number] [facility] Stop: 12/15/17 14:59 Last Admin: 10/22/17 11:02 Dose: 3 ml Albuterol/Ipratropium (Duoneb Neb) 3 ml HHN Q4H PRN PRN Reason: Wheezing Stop: 12/16/17 08:29 Amlodipine Besylate (Norvasc) 5 mg GT DAILY [facility] Stop: 12/16/17 08:59 Last Admin: 10/22/17 09:56 Dose: Not Given Ascorbic Acid (Vitamin C) 500 mg GT DAILY [facility] Stop: 12/16/17 08:59 Last Admin: 10/22/17 09:56 Dose: 500 mg Bisacodyl (Dulcolax 10 Mg Supp) 10 mg RC DAILY PRN PRN Reason: Constipation Stop: 12/16/17 08:29 Budesonide (Pulmicort) 0.5 mg HHN BIDRT [facility] Stop: 12/15/17 18:59 Last Admin: 10/22/17 07:26 Dose: 0.5 mg Diphenhydramine HCl (Benadryl 50 Mg/Ml) 50 mg IM Q4HR PRN PRN Reason: Agitation Stop: 12/16/17 08:29 Docusate Sodium (Colace) 100 mg PO DAILY [facility] Stop: 12/16/17 08:59 Last Admin: 10/22/17 09:57 Dose: 100 mg Donepezil HCl (Aricept) 10 mg GT HS [facility] Stop: 12/16/17 20:59 Last Admin: 10/21/17 21:29 Dose: 10 mg Enoxaparin Sodium (Lovenox) 30 mg SUBQ Q12H [facility] Stop: 12/17/17 16:19 Last Admin: 10/22/17 04:54 Dose: 30 mg Ferrous Sulfate (Iron) 325 mg PO BID ANG Stop: 12/16/17 08:59 Last Admin: 10/22/17 09:57 Dose: 325 mg Piperacillin Sod/Tazobactam (Sod 2.25 gm/ Sodium Chloride) 50 mls @ 100 mls/hr IV Q6HR ANG Stop: 12/15/17 12:59 Last Admin: 10/22/17 12:53 Dose: 100 mls/hr Vancomycin HCl 1.25 gm/ Sodium (Chloride) 250 mls @ 165 mls/hr IV Q24H ANG Stop: 12/21/17 08:59 Last Admin: 10/22/17 10:20 Dose: 165 mls/hr Lactobacillus Rhamnosus (Culturelle 15b) 1 each GT DAILY ANG Stop: 12/16/17 08:59 Last Admin: 10/22/17 09:57 Dose: 1 each Latanoprost (Xalatan 0.005% Ophth Soln) 1 drop EACH EYE HS ANG Stop: 12/16/17 20:59 Last Admin: 10/22/17 07:13 Dose: 1 drop Lorazepam (Ativan) 1 mg GT Q6HR PRN; Protocol PRN Reason: Agitation Stop: 12/16/17 08:29 Losartan Potassium (Cozaar) 50 mg GT DAILY ANG Stop: 12/16/17 08:59 Last Admin: 10/22/17 09:57 Dose: Not Given Magnesium Hydroxide (Milk Of Magnesia) 30 ml PO HS PRN PRN Reason: Constipation Stop: 12/16/17 08:29 Memantine (Namenda) 5 mg GT BID ANG Stop: 12/16/17 08:59 Last Admin: 10/22/17 09:57 Dose: 5 mg Mineral Oil (Mineral Oil 30 Ml) 30 ml GT TID ANG Stop: 12/16/17 08:59 Last Admin: 10/22/17 09:58 Dose: 30 ml Miscellaneous (Zosyn Iv Per Pharmacy) 1 ea PRN PRN PRN Reason: PROTOCOL Stop: 12/15/17 10:42 Miscellaneous (Vancomycin Iv Per Pharmacy) 1 ea MC DAILY ANG Stop: 12/20/17 10:59 Multivitamins/Vitamin C (Theragran) 1 tab GT DAILY ANG Stop: 12/16/17 08:59 Last Admin: 10/22/17 09:58 Dose: 1 tab Olanzapine (Zyprexa) 5 mg GT HS ANG PRN Reason: Protocol Stop: 12/16/17 20:59 Last Admin: 10/21/17 21:30 Dose: 5 mg Olanzapine (Zyprexa) 2.5 mg GT DAILY ANG PRN Reason: Protocol Stop: 12/16/17 08:59 Last Admin: 10/22/17 09:56 Dose: 2.5 mg Pantoprazole Sodium (Protonix) 40 mg PO DAILY [facility] Stop: 12/19/17 08:59 Last Admin: 10/22/17 09:59 Dose: 40 mg Promethazine HCl/Dextromethorphan (Phenergan Dm 6.25/15mg-5 Ml) 5 ml PO TID PRN PRN Reason: Cough Stop: 12/19/17 08:36 Last Admin: 10/21/17 08:49 Dose: 5 ml Sodium Phosphate (Fleet Enema) 135 ml RC DAILY PRN PRN Reason: Constipation Stop: 12/16/17 08:29 Tamsulosin HCl (Flomax) 0.4 mg GT HS [facility] Stop: 12/16/17 20:59 Last Admin: 10/21/17 21:29 Dose: 0.4 mg Zolpidem Tartrate (Ambien) 5 mg GT HS PRN PRN Reason: Insomnia Stop: 12/16/17 08:29 General: Alert, No acute distress, Other (confused) HEENT: Atraumatic, PERRLA, EOMI Neck: Supple, no JVD, no Thyromegaly Cardiovascular: Regular rate, Normal S1, Normal S2 Lungs: Other (improved breath sounds) Abdomen: Bowel sounds, Soft Extremities: no Clubbing, no Cyanosis, no Edema Neurological: Sensation intact Skin: no Rash Psych/Mental Status: Mood NL - Procedures Procedures: Procedures Procedure Code Date EGD ENDO MUCOSAL RESECTION 00905 09/08/[address] GASTROSTOMY TUBE 56521 09/08/17 EXCISION OF STOMACH, ENDO, DIAGN [id number] 09/08/17 INSERTION OF FEEDING DEVICE INTO STOMACH, PERC APPROACH [id number] 09/08/17 INTRODUCTION OF SERUM/TOX/VACCINE INTO MUSCLE, PERC APPROACH [id number] 09/08/17 Assessment/Plan - Assessment Assessment: SWATHI on CKD Sepsis 2/2 Cx UTI Met Enceph Anemia CD COPD GERD Psychosis Left lower lobe MRSA Healthcare Acquired Pna - Plan Plan: Lab - Result Diagrams 10/17/17 04:20 10/17/17 04:20 Current Medications Acetaminophen (Tylenol) 650 mg GT Q4H PRN PRN Reason: Mild pain, temp above 100 Stop: 12/16/17 08:29 Al Hydrox/Mg Hydrox/Simethicone (Maalox) 30 ml GT Q4HR PRN PRN Reason: GI distress Stop: 12/16/17 08:29 Albuterol/Ipratropium (Duoneb Neb) 3 ml HHN [id number] [facility] Stop: 12/15/17 14:59 Last Admin: 10/17/17 14:45 Dose: 3 ml Albuterol/Ipratropium (Duoneb Neb) 3 ml HHN Q4H PRN PRN Reason: Wheezing Stop: 12/16/17 08:29 Amlodipine Besylate (Norvasc) 5 mg GT DAILY [facility] Stop: 12/16/17 08:59 Last Admin: 10/17/17 09:37 Dose: Not Given Ascorbic Acid (Vitamin C) 500 mg GT DAILY [facility] Stop: 12/16/17 08:59 Last Admin: 10/17/17 09:36 Dose: 500 mg Bisacodyl (Dulcolax 10 Mg Supp) 10 mg RC DAILY PRN PRN Reason: Constipation Stop: 12/16/17 08:29 Budesonide (Pulmicort) 0.5 mg HHN BIDRT [facility] Stop: 12/15/17 18:59 Last Admin: 10/17/17 07:27 Dose: 0.5 mg Diphenhydramine HCl (Benadryl 50 Mg/Ml) 50 mg IM Q4HR PRN PRN Reason: Agitation Stop: 12/16/17 08:29 Docusate Sodium (Colace) 100 mg PO DAILY ANG Stop: 12/16/17 08:59 Last Admin: 10/17/17 09:36 Dose: 100 mg Donepezil HCl (Aricept) 10 mg GT HS [facility] Stop: 12/16/17 20:59 Ferrous Sulfate (Iron) 325 mg PO BID [facility] Stop: 12/16/17 08:59 Last Admin: 10/17/17 09:36 Dose: 325 mg Dextrose (D5w) 1,000 mls @ 100 mls/hr IV .Q10H ANG Stop: 12/15/17 14:29 Last Admin: 10/17/17 11:57 Dose: 100 mls/hr Piperacillin Sod/Tazobactam (Sod 2.25 gm/ Sodium Chloride) 50 mls @ 100 mls/hr IV Q6HR ANG Stop: 12/15/17 12:59 Last Admin: 10/17/17 11:59 Dose: 100 mls/hr Lactobacillus Rhamnosus (Culturelle 15b) 1 each GT DAILY ANG Stop: 12/16/17 08:59 Last Admin: 10/17/17 09:36 Dose: 1 each Latanoprost (Xalatan 0.005% Ophth Soln) 1 drop EACH EYE HS ANG Stop: 12/16/17 20:59 Lorazepam (Ativan) 1 mg GT Q6HR PRN; Protocol PRN Reason: Agitation Stop: 12/16/17 08:29 Losartan Potassium (Cozaar) 50 mg GT DAILY ANG Stop: 12/16/17 08:59 Last Admin: 10/17/17 09:37 Dose: Not Given Magnesium Hydroxide (Milk Of Magnesia) 30 ml PO HS PRN PRN Reason: Constipation Stop: 12/16/17 08:29 Memantine (Namenda) 5 mg GT BID ANG Stop: 12/16/17 08:59 Last Admin: 10/17/17 09:36 Dose: 5 mg Mineral Oil (Mineral Oil 30 Ml) 30 ml GT TID ANG Stop: 12/16/17 08:59 Last Admin: 10/17/17 14:20 Dose: 30 ml Miscellaneous (Zosyn Iv Per Pharmacy) 1 ea MC PRN PRN PRN Reason: PROTOCOL Stop: 12/15/17 10:42 Multivitamins/Vitamin C (Theragran) 1 tab GT DAILY ANG Stop: 12/16/17 08:59 Last Admin: 10/17/17 09:36 Dose: 1 tab Mupirocin (Bactroban Oint) 1 appl NS BID ANG Stop: 10/22/17 09:01 Olanzapine (Zyprexa) 5 mg GT HS ANG PRN Reason: Protocol Stop: 12/16/17 20:59 Olanzapine (Zyprexa) 2.5 mg GT DAILY ANG PRN Reason: Protocol Stop: 12/16/17 08:59 Sodium Phosphate (Fleet Enema) 135 ml RC DAILY PRN PRN Reason: Constipation Stop: 12/16/17 08:29 Tamsulosin HCl (Flomax) 0.4 mg GT HS ANG Stop: 12/16/17 20:59 Zolpidem Tartrate (Ambien) 5 mg GT HS PRN PRN Reason: Insomnia Stop: 12/16/17 08:29 Lab - Result Diagrams 10/22/17 05:30 10/22/17 05:30 kidney fnc stable UOP also improved Na @ 142 continue D5W f/u electrolytes, cbc On Zosyn WBC down to 12.2 Nutritional Asmnt/Malnutr-PDOC - Dietary Evaluation Malnutrition Findings (Please click <Entered> for more info): Nutritional Asmnt/Malnutrition Start: 10/17/17 14: 29 Text: Status: Complete Freq: Document 10/17/17 14:29 JELLY (Rec: 10/17/17 14:49 [id number] Nutritional Asmnt/Malnutrition Patient General Information Nutritional Screening High Risk Diagnosis ALOC, LEFT lower lobe PNA, Acute renal insuff Pertinent Medical Hx/Surgical Hx HTN, asthma/COPD, PUD/GERD, s/ p PNA, dysphagia, anemia, BPH, glaucolma, psychosis, insomnia, anxiety, dementia Subjective Information Consult received for wounds. Pt seen resting in bed at time of visit. Pt on NPO, TF not initiated at this time. Current Diet Order/ Nutrition Support Diabetisource AC 60ml/hr x 20hr Pertinent Medications vit C, D5w, colace, iron, culturelle, theragran, piperacillin Pertinent Labs 5/4 Na 158, K 4.3, Cl 128, BUN 59, Cr 1.4, glucose 121 5/3 Na 159, K 4.7, Cl 129, BUN 87, Cr 2.0, glucose 119 Nutritional Hx/Data Height 1.7 m Height (Calculated Centimeters) 170.2 Current Weight (lbs) 58.967 kg Weight (Calculated Kilograms) 59.0 Weight (Calculated Grams) 28069.0 [place] Body Weight 148 Body Mass Index (BMI) 20.3 Weight Status Approriate GI Symptoms GI Symptoms None Last BM none Difficult in: None Usual diet at home glucerna 1.2 at 60ml/hr x 20hr at [facility] per chart Skin Integrity/Comment: scar to sacrum, pressure area to right heel, laceration to left hip non-pitting to left lower extremity and left foot, pitting 1+ to right lower extremity and right foot. Current %PO Negligible < 25% Estimated Nutritional Goals BEE in Kcals: Using Current wt Calories/Kcals/Kg 25-30 Kcals Calculated 5840-0840 Protein: Using Current wt Protein g/k-1.2 monitor renal labs Protein Calculated 59-71 Fluid: ml per MD Nutritional Problem 1. Problem Problem altered nutrition related labs Etiology electrolytes imbalance, dx of acute renal insuff, endocrine dysfunction Signs/Symptoms: Na 158, Cl 128, BUN 59, Cr 1.4 , glucose 121 Intervention/Recommendation Comments 1. Start TF as ordered. It will provide 1440kcal and 72g protein, meeting 100% of nutritional needs. 3. Monitor TF tolerance, wt daily, skin integrity and labs 3. F/U as high risk in 2-3 days, 10/19-10/20 Expected Outcomes/Goals Expected Outcomes/Goals 1. pt to meet at least 75% of nutritional needs. 2. Wt stability, skin to remain intact, labs to approach WNL.
--- NOTE | 2017-10-22 14:41 | Diagnostic Imaging Report ---
CHEST X-RAY: AP view INDICATION: PICC line placement COMPARISON: 10/20/2017 FINDINGS: Left PICC line is in place with tip in SVC. Congestive changes are seen bilateral infiltrates and small effusions. Heart size is borderline prominent. IMPRESSION: Interval left PICC line placement with tip in the SVC. Congestive changes with bilateral hazy infiltrates and small effusions.
[2017-10-23] MEDS: Piperacillin/Tazobact 2.25 gm in 0.9% NS 50 ML IV SCH ×4 (00:30→17:29)
[2017-10-23] MEDS: Enoxaparin 30 mg/0.3 mL 0.3mL Syr SUBQ SCH ×2 (04:54→16:14)
[2017-10-23 05:56] LABS: % BASOPHILS 1.2 % (0.0-2.0); % EOSINOPHILS 3.3 % (0.0-5.0); % LYMPHOCYTES 20.5 % (20.0-50.0); % MONOCYTES 10.1 % (2.0-10.0); % NEUTROPHILS 64.9 % (40.0-80.0); BASOPHILE ABSOLUTE 0.1 Th/cumm (0-0.2); EOSINOPHILE ABSOLUTE 0.4 Th/cmm (0.1-0.4); HEMATOCRIT 28.9 % (41.0-60); HEMOGLOBIN 9.9 gm/dL (12-16); LYMPHOCYTE ABSOLUTE 2.4 Th/cmm (1.5-3.0); MEAN CELL VOLUME 87.6 fl (80-99); MEAN CORPUSCULAR HEMOGLOBIN 29.9 pg (27.0-31.0); MEAN CORPUSCULAR HGB CONC 34.1 pg (28.0-36.0); MEAN PLATELET VOLUME 7.4 fl; MONOCYTE ABSOLUTE 1.2 Th/cmm (0.3-1.0); NEUTROPHILE ABSOLUTE 7.6 Th/cmm (1.8-8.0); PLATELET COUNT 273 Th/cmm (150-400); RED CELL DISTRIBUTION WIDTH 15.7 % (11.5-20.0); WHITE BLOOD COUNT 11.7 Th/cmm (4.8-10.8)
[2017-10-23 06:04] LABS: ALB/GLOB RATIO 0.9 (1.0-1.8); ALBUMIN 2.5 gm/dL (4.2-5.5); ALKALINE PHOSPHATASE 143 U/L (34-104); ANION GAP 10.3 (7.0-16.0); BILIRUBIN,TOTAL 0.4 mg/dL (0.3-1.0); BUN - UREA NITROGEN 25 mg/dL (7-25); CALCIUM SERUM 8.6 mg/dL (8.6-10.3); CARBON DIOXIDE 27.1 mEq/L (21.0-31.0); CHLORIDE 110 mEq/L (98-107); CREATININE - SERUM 0.8 mg/dL (0.7-1.3); GLUCOSE 103 mg/dL (70-105); POTASSIUM SERUM 4.4 mEq/L (3.5-5.1); SGOT 41 U/L (13-39); SGPT/ALT 41 U/L (7-52); SODIUM SERUM 143 mEq/L (136-145); TOTAL PROTEIN,SERUM 5.4 gm/dL (6.0-8.3)
[2017-10-23] MEDS: Budesonide 0.5 Mg/2 mL Ud HHN SCH ×2 (07:31→18:36)
[2017-10-23] MEDS: Albuterol/Ipratropium Neb 3 ML AERS HHN SCH ×4 (07:31→18:36)
--- NOTE | 2017-10-23 08:05 | General Progress Note ---
Subjective - Review of Systems Service Date: 10/23/17 Subjective: Temp 99.1 last night. but less confused. Patient recently had PICC line placement. Patient here for PNA. on Lovenox SQ for DVT LLE. +MRSA PNA. Objective - Results Result Diagrams: 10/23/17 05:30 10/23/17 05:30 Recent Labs: Laboratory Last Values WBC 11.7 Th/cmm (4.8-10.8) H 10/23/17 05:30 RBC 3.30 Mil/cmm (3.80-5.80) L 10/23/17 05:30 Hgb 9.9 gm/dL (12-16) L 10/23/17 05:30 Hct 28.9 % (41.0-60) L 10/23/17 05:30 MCV 87.6 fl (80-99) 10/23/17 05:30 MCH 29.9 pg (27.0-31.0) 10/23/17 05:30 MCHC Differential 34.1 pg (28.0-36.0) 10/23/17 05:30 RDW 15.7 % (11.5-20.0) 10/23/17 05:30 Plt Count 273 Th/cmm (150-400) 10/23/17 05:30 MPV 7.4 fl 10/23/17 05:30 Neutrophils % 64.9 % (40.0-80.0) 10/23/17 05:30 Band Neutrophils % 2 % (0-10) 10/16/17 08:15 Lymphocytes % 20.5 % (20.0-50.0) 10/23/17 05:30 Monocytes % 10.1 % (2.0-10.0) H 10/23/17 05:30 Eosinophils % 3.3 % (0.0-5.0) 10/23/17 05:30 Basophils % 1.2 % (0.0-2.0) 10/23/17 05:30 Neutrophils (Manual) 83 % (40-80) H 10/16/17 08:15 Lymphocytes 6 % (20-50) L 10/16/17 08:15 Monocytes 8 % (2-10) 10/16/17 08:15 Basophils 1 % (0-3) 10/16/17 08:15 Platelet Estimate ADEQUATE (NORMAL) 10/16/17 08:15 Eos Smear Source URINE 10/17/17 17:40 Eos Smear Total Cells NONE SEEN (NONE SEEN) 10/17/17 17:40 PT 12.0 SECONDS (9.5-11.5) H 10/17/17 13:28 INR 1.14 (0.5-1.4) 10/17/17 13:28 PTT (Actin FS) 26.0 SECONDS (26.0-38.0) 10/17/17 13:28 Specimen Source Arterial 10/17/17 09:33 Sample Site Right Radial 10/17/17 09:33 pH 7.40 (7.35-7.45) 10/17/17 09:33 pCO2 37.0 mmHg (35.0-45.0) 10/17/17 09:33 pO2 84.0 mmHg (80.0-100.0) 10/17/17 09:33 HCO3 23.7 mEq/L (20.0-26.0) 10/17/17 09:33 Base Excess -1.6 mEq/L (-3.0-3.0) 10/17/17 09:33 O2 Saturation 96.0 % (92.0-100.0) 10/17/17 09:33 Franki Test YES 10/17/17 09:33 Vent Rate NA 10/17/17 09:33 Inspired O2 28 10/17/17 09:33 Tidal Volume NA 10/17/17 09:33 PEEP NA 10/17/17 09:33 Pressure (ins/psv/peep) NA 10/17/17 09:33 Critical Value E.COOL 10/17/17 09:33 Sodium 143 mEq/L (136-145) 10/23/17 05:30 Potassium 4.4 mEq/L (3.5-5.1) 10/23/17 05:30 Chloride 110 mEq/L (98-107) H 10/23/17 05:30 Carbon Dioxide 27.1 mEq/L (21.0-31.0) 10/23/17 05:30 Anion Gap 10.3 (7.0-16.0) 10/23/17 05:30 BUN 25 mg/dL (7-25) 10/23/17 05:30 Creatinine 0.8 mg/dL (0.7-1.3) 10/23/17 05:30 Est GFR ( Amer) TNP 10/23/17 05:30 Est GFR (Non-Af Amer) TNP 10/23/17 05:30 BUN/Creatinine Ratio 31.3 10/23/17 05:30 Glucose 103 mg/dL (70-105) 10/23/17 05:30 Whole Bld Lactic Acid 1.47 mmol/L (0.60-1.99) 10/16/17 08:15 Uric Acid 3.7 mg/dL (4.4-7.6) L 10/17/17 04:20 Calcium 8.6 mg/dL (8.6-10.3) 10/23/17 05:30 Phosphorus 3.1 mg/dL (2.5-5.0) 10/17/17 04:20 Magnesium 1.9 mg/dL (1.9-2.7) 10/22/17 05:30 Total Bilirubin 0.4 mg/dL (0.3-1.0) 10/23/17 05:30 AST 41 U/L (13-39) H 10/23/17 05:30 ALT 41 U/L (7-52) 10/23/17 05:30 Alkaline Phosphatase 143 U/L (34-104) H 10/23/17 05:30 Ammonia 43 umol/L (16-53) 10/17/17 04:20 B-Natriuretic Peptide 83.6 pg/mL (5.0-100.0) 10/16/17 08:15 Total Protein 5.4 gm/dL (6.0-8.3) L 10/23/17 05:30 Albumin 2.5 gm/dL (4.2-5.5) L 10/23/17 05:30 Globulin 2.9 gm/dL 10/23/17 05:30 Albumin/Globulin Ratio 0.9 (1.0-1.8) L 10/23/17 05:30 Urine Source [place] 10/16/17 09:00 Urine Color YELLOW 10/16/17 09:00 Urine Clarity HAZY (CLEAR) 10/16/17 09:00 Urine pH 8.5 (4.6 - 8.0) 10/16/17 09:00 Ur Specific [place] <= 1.005 (1.005-1.030) 10/16/17 09:00 Urine Protein >=300 mg/dL (NEGATIVE) 10/16/17 09:00 Urine Glucose (UA) NEGATIVE mg/dL (NEGATIVE) 10/16/17 09:00 Urine Ketones NEGATIVE mg/dL (NEGATIVE) 10/16/17 09:00 Urine Blood SMALL (NEGATIVE) H 10/16/17 09:00 Urine Nitrate NEGATIVE (NEGATIVE) 10/16/17 09:00 Urine Bilirubin NEGATIVE (NEGATIVE) 10/16/17 09:00 Urine Urobilinogen 0.2 E.U./dL (0.2 - 1.0) 10/16/17 09:00 Ur Leukocyte Esterase MODERATE (NEGATIVE) H 10/16/17 09:00 Urine RBC 2-5 /hpf (0-5) H 10/16/17 09:00 Urine WBC 6-10 /hpf (0-5) 10/16/17 09:00 Ur Epithelial Cells FEW /lpf (FEW) 10/16/17 09:00 Triple Phos Crystals MANY /hpf (FEW) 10/16/17 09:00 Urine Bacteria MODERATE /hpf (NONE SEEN) H 10/16/17 09:00 Urine Osmolality 509 mOsmol/kg 10/18/17 15:30 Ur Random Sodium 88 mmol/L 10/17/17 17:40 Urine Creatinine 39.0 mg/dl (39.0-259.0) 10/17/17 17:40 Urine Microalbumin 116 10/16/17 09:00 Microalb/Creat Ratio 299.7 10/16/17 09:00 Vancomycin Trough 14.5 ug/mL (5-10) H 10/23/17 05:30 - Physical Exam Vitals and I&O: Vital Signs Temp 98.2 F 10/23/17 04:00 Pulse 83 10/23/17 07:45 Resp 20 10/23/17 07:45 BP 103/68 10/23/17 04:00 Pulse Ox 97 10/23/17 07:45 Intake & Output 10/22/17 10/23/17 10/23/17 18:59 06:59 18:59 Intake Total 100 400 Output Total 1400 Balance 100 -1000 Weight (lbs) 61.32 kg Intake: Intake, IV Amount 100 100 Piperacillin Sodium/ 100 100 Tazobact 2.25 gm In Sodium Chloride 0.9% 50 ml @ 100 mls/hr IV Q6HR [facility] Rx#:[id number] Other 300 Output: Urine 1400 Other: # Bowel Movements 1 Weight Source Bedscale Active Medications: Current Medications Acetaminophen (Tylenol) 650 mg GT Q4H PRN PRN Reason: Mild pain, temp above 100 Stop: 12/16/17 08:29 Al Hydrox/Mg Hydrox/Simethicone (Maalox) 30 ml GT Q4HR PRN PRN Reason: GI distress Stop: 12/16/17 08:29 Albuterol/Ipratropium (Duoneb Neb) 3 ml HHN [id number] [facility] Stop: 12/15/17 14:59 Last Admin: 10/23/17 07:31 Dose: 3 ml Albuterol/Ipratropium (Duoneb Neb) 3 ml HHN Q4H PRN PRN Reason: Wheezing Stop: 12/16/17 08:29 Amlodipine Besylate (Norvasc) 5 mg GT DAILY [facility] Stop: 12/16/17 08:59 Last Admin: 10/22/17 09:56 Dose: Not Given Ascorbic Acid (Vitamin C) 500 mg GT DAILY [facility] Stop: 12/16/17 08:59 Last Admin: 10/22/17 09:56 Dose: 500 mg Bisacodyl (Dulcolax 10 Mg Supp) 10 mg RC DAILY PRN PRN Reason: Constipation Stop: 12/16/17 08:29 Budesonide (Pulmicort) 0.5 mg HHN BIDRT ANG Stop: 12/15/17 18:59 Last Admin: 10/23/17 07:31 Dose: 0.5 mg Diphenhydramine HCl (Benadryl 50 Mg/Ml) 50 mg IM Q4HR PRN PRN Reason: Agitation Stop: 12/16/17 08:29 Docusate Sodium (Colace) 100 mg PO DAILY [facility] Stop: 12/16/17 08:59 Last Admin: 10/22/17 09:57 Dose: 100 mg Donepezil HCl (Aricept) 10 mg GT HS [facility] Stop: 12/16/17 20:59 Last Admin: 10/22/17 21:12 Dose: 10 mg Enoxaparin Sodium (Lovenox) 30 mg SUBQ Q12H ANG Stop: 07/04/18 16:19 Last Admin: 10/23/17 04:54 Dose: 30 mg Ferrous Sulfate (Iron) 325 mg PO BID ANG Stop: 12/16/17 08:59 Last Admin: 10/22/17 17:37 Dose: 325 mg Piperacillin Sod/Tazobactam (Sod 2.25 gm/ Sodium Chloride) 50 mls @ 100 mls/hr IV Q6HR ANG Stop: 12/15/17 12:59 Last Infusion: 10/23/17 06:16 Dose: Infused Vancomycin HCl 1.25 gm/ Sodium (Chloride) 250 mls @ 165 mls/hr IV Q24H ANG Stop: 12/21/17 08:59 Last Admin: 10/22/17 10:20 Dose: 165 mls/hr Lactobacillus Rhamnosus (Culturelle 15b) 1 each GT DAILY ANG Stop: 12/16/17 08:59 Last Admin: 10/22/17 09:57 Dose: 1 each Latanoprost (Xalatan 0.005% Oph Soln) 1 drop EACH EYE HS ANG Stop: 12/16/17 20:59 Last Admin: 10/22/17 22:00 Dose: Not Given Lorazepam (Ativan) 1 mg GT Q6HR PRN; Protocol PRN Reason: Agitation Stop: 12/16/17 08:29 Losartan Potassium (Cozaar) 50 mg GT DAILY ANG Stop: 12/16/17 08:59 Last Admin: 10/22/17 09:57 Dose: Not Given Magnesium Hydroxide (Milk Of Magnesia) 30 ml PO HS PRN PRN Reason: Constipation Stop: 12/16/17 08:29 Memantine (Namenda) 5 mg GT BID ANG Stop: 12/16/17 08:59 Last Admin: 10/22/17 17:37 Dose: 5 mg Mineral Oil (Mineral Oil 30 Ml) 30 ml GT TID ANG Stop: 12/16/17 08:59 Last Admin: 10/22/17 21:12 Dose: 30 ml Miscellaneous (Zosyn Iv Per Pharmacy) 1 ea MC PRN PRN PRN Reason: PROTOCOL Stop: 12/15/17 10:42 Miscellaneous (Vancomycin Iv Per Pharmacy) 1 ea MC DAILY ANG Stop: 12/20/17 10:59 Multivitamins/Vitamin C (Theragran) 1 tab GT DAILY ANG Stop: 12/16/17 08:59 Last Admin: 10/22/17 09:58 Dose: 1 tab Olanzapine (Zyprexa) 5 mg GT HS ANG PRN Reason: Protocol Stop: 12/16/17 20:59 Last Admin: 10/22/17 21:12 Dose: 5 mg Olanzapine (Zyprexa) 2.5 mg GT DAILY ANG PRN Reason: Protocol Stop: 12/16/17 08:59 Last Admin: 10/22/17 09:56 Dose: 2.5 mg Pantoprazole Sodium (Protonix) 40 mg PO DAILY [facility] Stop: 12/19/17 08:59 Last Admin: 10/22/17 09:59 Dose: 40 mg Promethazine HCl/Dextromethorphan (Phenergan Dm 6.25/15mg-5 Ml) 5 ml PO TID PRN PRN Reason: Cough Stop: 12/19/17 08:36 Last Admin: 10/21/17 08:49 Dose: 5 ml Sodium Phosphate (Fleet Enema) 135 ml RC DAILY PRN PRN Reason: Constipation Stop: 12/16/17 08:29 Tamsulosin HCl (Flomax) 0.4 mg GT HS [facility] Stop: 12/16/17 20:59 Last Admin: 10/22/17 21:12 Dose: 0.4 mg Zolpidem Tartrate (Ambien) 5 mg GT HS PRN PRN Reason: Insomnia Stop: 12/16/17 08:29 General: Alert, No acute distress, Other (confused) HEENT: Atraumatic, PERRLA, EOMI Neck: Supple, no JVD, no Thyromegaly Cardiovascular: Regular rate, Normal S1, Normal S2 Lungs: Other (improved breath sounds) Abdomen: Bowel sounds, Soft Extremities: no Clubbing, no Cyanosis, no Edema Neurological: Sensation intact Skin: no Rash Psych/Mental Status: Mood NL - Procedures Procedures: Procedures Procedure Code Date EGD ENDO MUCOSAL RESECTION 56704 09/08/[address] GASTROSTOMY TUBE 11235 09/08/17 EXCISION OF STOMACH, ENDO, DIAGN [id number] 09/08/17 INSERTION OF FEEDING DEVICE INTO STOMACH, PERC APPROACH [id number] 09/08/17 INTRODUCTION OF SERUM/TOX/VACCINE INTO MUSCLE, PERC APPROACH [id number] 09/08/17 Assessment/Plan - Assessment Assessment: +MRSA Sputum ALOC secondary to Metabolic Encephalopathy Sepsis improving Anemia Hypernatremia improving Acute Renal Insufficiency improving GIANNI PNA possible aspiration. HTN Asthma COPD PUD GERD s/p gastrostomy tube placement dysphagia benign prostatic hypertrophy glaucoma psychosis insomnia anxiety DVT to LE Enlarge Prostate Right Sided Hydronephrosis hypokalemia hypomagnesemia - Plan Plan: Admit to ICU Pulmonary consult Dr Raisa Katz Nephrology consult Dr. Morales Neurology consult Dr. Serrano IV hydration IV Zosyn & Vancomycin IV repeat CBC,CMP tomorrow blood culture x2 urine culture x2 sputum culture x2 Lovenox SQ q12 PO K and Mg check Mg level repeat CBC tomorrow PICC Line Placement Assisted Acute Care Placement for IV antibiotics. Nutritional Asmnt/Malnutr-PDOC - Dietary Evaluation Malnutrition Findings (Please click <Entered> for more info): Nutritional Asmnt/Malnutrition Start: 10/17/17 14: 29 Text: Status: Complete Freq: Document 10/17/17 14:29 [facility] (Rec: 10/17/17 14:49 HEN [id number]) Nutritional Asmnt/Malnutrition Patient General Information Nutritional Screening High Risk Diagnosis ALOC, LEFT lower lobe PNA, Acute renal insuff Pertinent Medical Hx/Surgical Hx HTN, asthma/COPD, PUD/GERD, s/ p PNA, dysphagia, anemia, BPH, glaucolma, psychosis, insomnia, anxiety, dementia Subjective Information Consult received for wounds. Pt seen resting in bed at time of visit. Pt on NPO, TF not initiated at this time. Current Diet Order/ Nutrition Support Diabetisource AC 60ml/hr x 20hr Pertinent Medications vit C, D5w, colace, iron, culturelle, theragran, piperacillin Pertinent Labs 5/4 Na 158, K 4.3, Cl 128, BUN 59, Cr 1.4, glucose 121 5/3 Na 159, K 4.7, Cl 129, BUN 87, Cr 2.0, glucose 119 Nutritional Hx/Data Height 1.7 m Height (Calculated Centimeters) 170.2 Current Weight (lbs) 58.967 kg Weight (Calculated Kilograms) 59.0 Weight (Calculated Grams) 98213.0 [place] Body Weight 148 Body Mass Index (BMI) 20.3 Weight Status Approriate GI Symptoms GI Symptoms None Last BM none Difficult in: None Usual diet at home glucerna 1.2 at 60ml/hr x 20hr at SN[facility] per chart Skin Integrity/Comment: scar to sacrum, pressure area to right heel, laceration to left hip non-pitting to left lower extremity and left foot, pitting 1+ to right lower extremity and right foot. Current %PO Negligible < 25% Estimated Nutritional Goals BEE in Kcals: Using Current wt Calories/Kcals/Kg 25-30 Kcals Calculated [id number] Protein: Using Current wt Protein g/k-1.2 monitor renal labs Protein Calculated 59-71 Fluid: ml per MD Nutritional Problem 1. Problem Problem altered nutrition related labs Etiology electrolytes imbalance, dx of acute renal insuff, endocrine dysfunction Signs/Symptoms: Na 158, Cl 128, BUN 59, Cr 1.4 , glucose 121 Intervention/Recommendation Comments 1. Start TF as ordered. It will provide 1440kcal and 72g protein, meeting 100% of nutritional needs. 3. Monitor TF tolerance, wt daily, skin integrity and labs 3. F/U as high risk in 2-3 days, 10/19-10/20 Expected Outcomes/Goals Expected Outcomes/Goals 1. pt to meet at least 75% of nutritional needs. 2. Wt stability, skin to remain intact, labs to approach WNL.
[2017-10-23] MEDS: Pantoprazole 40 mg/Packet PO SCH (09:21)
[2017-10-23] MEDS: Ferrous Sulfate 325 MG TAB PO SCH ×2 (09:21→16:17)
[2017-10-23] MEDS: Lactobacillus Rhamnosus GG 15 Billion CFU CAP.SPRINK GT SCH (09:21)
[2017-10-23] MEDS: Multivitamin Tab GT SCH (09:21)
--- NOTE | 2017-10-23 10:38 | Infectious Disease Prog Note ---
Infectious Disease Subjective - Review of Systems Service Date: 10/23/17 Subjective: There is no new change. Infectious Disease Objective - Results Result Diagrams: 10/23/17 05:30 10/23/17 05:30 Recent Labs: Laboratory Last Values WBC 11.7 Th/cmm (4.8-10.8) H 10/23/17 05:30 RBC 3.30 Mil/cmm (3.80-5.80) L 10/23/17 05:30 Hgb 9.9 gm/dL (12-16) L 10/23/17 05:30 Hct 28.9 % (41.0-60) L 10/23/17 05:30 MCV 87.6 fl (80-99) 10/23/17 05:30 MCH 29.9 pg (27.0-31.0) 10/23/17 05:30 MCHC Differential 34.1 pg (28.0-36.0) 10/23/17 05:30 RDW 15.7 % (11.5-20.0) 10/23/17 05:30 Plt Count 273 Th/cmm (150-400) 10/23/17 05:30 MPV 7.4 fl 10/23/17 05:30 Neutrophils % 64.9 % (40.0-80.0) 10/23/17 05:30 Band Neutrophils % 2 % (0-10) 10/16/17 08:15 Lymphocytes % 20.5 % (20.0-50.0) 10/23/17 05:30 Monocytes % 10.1 % (2.0-10.0) H 10/23/17 05:30 Eosinophils % 3.3 % (0.0-5.0) 10/23/17 05:30 Basophils % 1.2 % (0.0-2.0) 10/23/17 05:30 Neutrophils (Manual) 83 % (40-80) H 10/16/17 08:15 Lymphocytes 6 % (20-50) L 10/16/17 08:15 Monocytes 8 % (2-10) 10/16/17 08:15 Basophils 1 % (0-3) 10/16/17 08:15 Platelet Estimate ADEQUATE (NORMAL) 10/16/17 08:15 Eos Smear Source URINE 10/17/17 17:40 Eos Smear Total Cells NONE SEEN (NONE SEEN) 10/17/17 17:40 PT 12.0 SECONDS (9.5-11.5) H 10/17/17 13:28 INR 1.14 (0.5-1.4) 10/17/17 13:28 PTT (Actin FS) 26.0 SECONDS (26.0-38.0) 10/17/17 13:28 Specimen Source Arterial 10/17/17 09:33 Sample Site Right Radial 10/17/17 09:33 pH 7.40 (7.35-7.45) 10/17/17 09:33 pCO2 37.0 mmHg (35.0-45.0) 10/17/17 09:33 pO2 84.0 mmHg (80.0-100.0) 10/17/17 09:33 HCO3 23.7 mEq/L (20.0-26.0) 10/17/17 09:33 Base Excess -1.6 mEq/L (-3.0-3.0) 10/17/17 09:33 O2 Saturation 96.0 % (92.0-100.0) 10/17/17 09:33 Franki Test YES 10/17/17 09:33 Vent Rate NA 10/17/17 09:33 Inspired O2 28 10/17/17 09:33 Tidal Volume NA 10/17/17 09:33 PEEP NA 10/17/17 09:33 Pressure (ins/psv/peep) NA 10/17/17 09:33 Critical Value E.COOL 10/17/17 09:33 Sodium 143 mEq/L (136-145) 10/23/17 05:30 Potassium 4.4 mEq/L (3.5-5.1) 10/23/17 05:30 Chloride 110 mEq/L (98-107) H 10/23/17 05:30 Carbon Dioxide 27.1 mEq/L (21.0-31.0) 10/23/17 05:30 Anion Gap 10.3 (7.0-16.0) 10/23/17 05:30 BUN 25 mg/dL (7-25) 10/23/17 05:30 Creatinine 0.8 mg/dL (0.7-1.3) 10/23/17 05:30 Est GFR ( Amer) TNP 10/23/17 05:30 Est GFR (Non-Af Amer) TNP 10/23/17 05:30 BUN/Creatinine Ratio 31.3 10/23/17 05:30 Glucose 103 mg/dL (70-105) 10/23/17 05:30 Whole Bld Lactic Acid 1.47 mmol/L (0.60-1.99) 10/16/17 08:15 Uric Acid 3.7 mg/dL (4.4-7.6) L 10/17/17 04:20 Calcium 8.6 mg/dL (8.6-10.3) 10/23/17 05:30 Phosphorus 3.1 mg/dL (2.5-5.0) 10/17/17 04:20 Magnesium 1.9 mg/dL (1.9-2.7) 10/22/17 05:30 Total Bilirubin 0.4 mg/dL (0.3-1.0) 10/23/17 05:30 AST 41 U/L (13-39) H 10/23/17 05:30 ALT 41 U/L (7-52) 10/23/17 05:30 Alkaline Phosphatase 143 U/L (34-104) H 10/23/17 05:30 Ammonia 43 umol/L (16-53) 10/17/17 04:20 B-Natriuretic Peptide 83.6 pg/mL (5.0-100.0) 10/16/17 08:15 Total Protein 5.4 gm/dL (6.0-8.3) L 10/23/17 05:30 Albumin 2.5 gm/dL (4.2-5.5) L 10/23/17 05:30 Globulin 2.9 gm/dL 10/23/17 05:30 Albumin/Globulin Ratio 0.9 (1.0-1.8) L 10/23/17 05:30 Urine Source MANJARREZ PORT 10/16/17 09:00 Urine Color YELLOW 10/16/17 09:00 Urine Clarity HAZY (CLEAR) 10/16/17 09:00 Urine pH 8.5 (4.6 - 8.0) 10/16/17 09:00 Ur Specific Foss <= 1.005 (1.005-1.030) 10/16/17 09:00 Urine Protein >=300 mg/dL (NEGATIVE) 10/16/17 09:00 Urine Glucose (UA) NEGATIVE mg/dL (NEGATIVE) 10/16/17 09:00 Urine Ketones NEGATIVE mg/dL (NEGATIVE) 10/16/17 09:00 Urine Blood SMALL (NEGATIVE) H 10/16/17 09:00 Urine Nitrate NEGATIVE (NEGATIVE) 10/16/17 09:00 Urine Bilirubin NEGATIVE (NEGATIVE) 10/16/17 09:00 Urine Urobilinogen 0.2 E.U./dL (0.2 - 1.0) 10/16/17 09:00 Ur Leukocyte Esterase MODERATE (NEGATIVE) H 10/16/17 09:00 Urine RBC 2-5 /hpf (0-5) H 10/16/17 09:00 Urine WBC 6-10 /hpf (0-5) 10/16/17 09:00 Ur Epithelial Cells FEW /lpf (FEW) 10/16/17 09:00 Triple Phos Crystals MANY /hpf (FEW) 10/16/17 09:00 Urine Bacteria MODERATE /hpf (NONE SEEN) H 10/16/17 09:00 Urine Osmolality 509 mOsmol/kg 10/18/17 15:30 Ur Random Sodium 88 mmol/L 10/17/17 17:40 Urine Creatinine 39.0 mg/dl (39.0-259.0) 10/17/17 17:40 Urine Microalbumin 116 10/16/17 09:00 Microalb/Creat Ratio 299.7 10/16/17 09:00 Vancomycin Trough 14.5 ug/mL (5-10) H 10/23/17 05:30 - Physical Exam Vitals and I&O: Vital Signs Temp 98.2 F 10/23/17 04:00 Pulse 77 10/23/17 09:23 Resp 20 10/23/17 07:45 BP 98/46 10/23/17 09:23 Pulse Ox 97 10/23/17 07:45 Intake & Output 10/22/17 10/23/17 10/23/17 18:59 06:59 18:59 Intake Total 350 400 Output Total 1400 Balance 350 -1000 Weight (lbs) 61.32 kg Intake: Intake, IV Amount 350 100 Piperacillin Sodium/ 100 100 Tazobact 2.25 gm In Sodium Chloride 0.9% 50 ml @ 100 mls/hr IV Q6HR [facility] Rx#:[id number] Vancomycin HCl 1.25 gm In 250 Sodium Chloride 0.9% 250 ml @ 165 mls/hr IV Q24H [facility] Rx#:[id number] Other 300 Output: Urine 1400 Other: # Bowel Movements 1 Weight Source Bedscale Active Medications: Current Medications Acetaminophen (Tylenol) 650 mg GT Q4H PRN PRN Reason: Mild pain, temp above 100 Stop: 12/16/17 08:29 Al Hydrox/Mg Hydrox/Simethicone (Maalox) 30 ml GT Q4HR PRN PRN Reason: GI distress Stop: 12/16/17 08:29 Albuterol/Ipratropium (Duoneb Neb) 3 ml HHN [id number] ANG Stop: 12/15/17 14:59 Last Admin: 10/23/17 07:31 Dose: 3 ml Albuterol/Ipratropium (Duoneb Neb) 3 ml HHN Q4H PRN PRN Reason: Wheezing Stop: 12/16/17 08:29 Amlodipine Besylate (Norvasc) 5 mg GT DAILY [facility] Stop: 12/16/17 08:59 Last Admin: 10/23/17 09:23 Dose: Not Given Ascorbic Acid (Vitamin C) 500 mg GT DAILY ANG Stop: 12/16/17 08:59 Last Admin: 10/23/17 09:21 Dose: 500 mg Bisacodyl (Dulcolax 10 Mg Supp) 10 mg RC DAILY PRN PRN Reason: Constipation Stop: 12/16/17 08:29 Budesonide (Pulmicort) 0.5 mg HHN BIDRT ANG Stop: 12/15/17 18:59 Last Admin: 10/23/17 07:31 Dose: 0.5 mg Diphenhydramine HCl (Benadryl 50 Mg/Ml) 50 mg IM Q4HR PRN PRN Reason: Agitation Stop: 12/16/17 08:29 Docusate Sodium (Colace) 100 mg PO DAILY [facility] Stop: 12/16/17 08:59 Last Admin: 10/23/17 09:21 Dose: 100 mg Donepezil HCl (Aricept) 10 mg GT HS ANG Stop: 12/16/17 20:59 Last Admin: 10/22/17 21:12 Dose: 10 mg Enoxaparin Sodium (Lovenox) 30 mg SUBQ Q12H ANG Stop: 12/17/17 16:19 Last Admin: 10/23/17 04:54 Dose: 30 mg Ferrous Sulfate (Iron) 325 mg PO BID ANG Stop: 12/16/17 08:59 Last Admin: 10/23/17 09:21 Dose: 325 mg Piperacillin Sod/Tazobactam (Sod 2.25 gm/ Sodium Chloride) 50 mls @ 100 mls/hr IV Q6HR ANG Stop: 12/15/17 12:59 Last Infusion: 10/23/17 06:16 Dose: Infused Vancomycin HCl 1.25 gm/ Sodium (Chloride) 250 mls @ 165 mls/hr IV Q24H ANG Stop: 12/21/17 08:59 Last Admin: 10/23/17 09:23 Dose: 165 mls/hr Lactobacillus Rhamnosus (Culturelle 15b) 1 each GT DAILY ANG Stop: 12/16/17 08:59 Last Admin: 10/23/17 09:21 Dose: 1 each Latanoprost (Xalatan 0.005% Oph Soln) 1 drop EACH EYE HS ANG Stop: 12/16/17 20:59 Last Admin: 10/22/17 22:00 Dose: Not Given Lorazepam (Ativan) 1 mg GT Q6HR PRN; Protocol PRN Reason: Agitation Stop: 12/16/17 08:29 Losartan Potassium (Cozaar) 50 mg GT DAILY ANG Stop: 12/16/17 08:59 Last Admin: 10/23/17 09:22 Dose: Not Given Magnesium Hydroxide (Milk Of Magnesia) 30 ml PO HS PRN PRN Reason: Constipation Stop: 12/16/17 08:29 Memantine (Namenda) 5 mg GT BID ANG Stop: 12/16/17 08:59 Last Admin: 10/23/17 09:23 Dose: 5 mg Mineral Oil (Mineral Oil 30 Ml) 30 ml GT TID ANG Stop: 12/16/17 08:59 Last Admin: 10/23/17 09:21 Dose: 30 ml Miscellaneous (Zosyn Iv Per Pharmacy) 1 ea MC PRN PRN PRN Reason: PROTOCOL Stop: 12/15/17 10:42 Miscellaneous (Vancomycin Iv Per Pharmacy) 1 ea MC DAILY ANG Stop: 12/20/17 10:59 Multivitamins/Vitamin C (Theragran) 1 tab GT DAILY ANG Stop: 12/16/17 08:59 Last Admin: 10/23/17 09:21 Dose: 1 tab Olanzapine (Zyprexa) 5 mg GT HS ANG PRN Reason: Protocol Stop: 12/16/17 20:59 Last Admin: 10/22/17 21:12 Dose: 5 mg Olanzapine (Zyprexa) 2.5 mg GT DAILY ANG PRN Reason: Protocol Stop: 12/16/17 08:59 Last Admin: 10/23/17 09:22 Dose: 2.5 mg Pantoprazole Sodium (Protonix) 40 mg PO DAILY ANG Stop: 12/19/17 08:59 Last Admin: 10/23/17 09:21 Dose: 40 mg Promethazine HCl/Dextromethorphan (Phenergan Dm 6.25/15mg-5 Ml) 5 ml PO TID PRN PRN Reason: Cough Stop: 12/19/17 08:36 Last Admin: 10/21/17 08:49 Dose: 5 ml Sodium Phosphate (Fleet Enema) 135 ml RC DAILY PRN PRN Reason: Constipation Stop: 12/16/17 08:29 Tamsulosin HCl (Flomax) 0.4 mg GT HS ANG Stop: 12/16/17 20:59 Last Admin: 10/22/17 21:12 Dose: 0.4 mg Zolpidem Tartrate (Ambien) 5 mg GT HS PRN PRN Reason: Insomnia Stop: 12/16/17 08:29 General: no acute distress, well developed, well nourished HEENT: atraumatic, no normocephalic, no PERRLA Neck: supple, no thyromegaly Cardiovascular: S1S2, regular Lungs: clear to percussion, crackles Abdomen: soft, no tender, no distended, no mass Extremities: no cyanosis, no clubbing, no edema Neurological: awake, alert Skin: intact - Procedures Procedures: Procedures Procedure Code Date EGD ENDO MUCOSAL RESECTION 85309 09/08/[address] GASTROSTOMY TUBE 03238 09/08/17 EXCISION OF STOMACH, ENDO, DIAGN [id number] 09/08/17 INSERTION OF FEEDING DEVICE INTO STOMACH, PERC APPROACH [id number] 09/08/17 INTRODUCTION OF SERUM/TOX/VACCINE INTO MUSCLE, PERC APPROACH [id number] 09/08/17 Infectious Disease Assmt/Plan - Assessment Assessment: 1. MRSA pneumonia. LLL. 2. Leukocytosis. 3. UTI. 4. psychosis. 5. Anxiety disorder. 6. hypertension. 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 8. COPD. 9. History of aspiration pneumonia. 10. GERD, peptic ulcer disease. 11. BPH. 12. Dysphagia. 13. G-tube placement. 14. Dementia. - Plan Plan: Continue vancomycin IV and Zosyn. Nutritional Asmnt/Malnutr-PDOC - Dietary Evaluation Malnutrition Findings (Please click <Entered> for more info): Nutritional Asmnt/Malnutrition Start: 10/17/17 14: 29 Text: Status: Complete Freq: Document 10/17/17 14:29 JELLY (Rec: 10/17/17 14:49 JELLY [id number]) Nutritional Asmnt/Malnutrition Patient General Information Nutritional Screening High Risk Diagnosis ALOC, LEFT lower lobe PNA, Acute renal insuff Pertinent Medical Hx/Surgical Hx HTN, asthma/COPD, PUD/GERD, s/ p PNA, dysphagia, anemia, BPH, glaucolma, psychosis, insomnia, anxiety, dementia Subjective Information Consult received for wounds. Pt seen resting in bed at time of visit. Pt on NPO, TF not initiated at this time. Current Diet Order/ Nutrition Support Diabetisource AC 60ml/hr x 20hr Pertinent Medications vit C, D5w, colace, iron, culturelle, theragran, piperacillin Pertinent Labs 5/4 Na 158, K 4.3, Cl 128, BUN 59, Cr 1.4, glucose 121 5/3 Na 159, K 4.7, Cl 129, BUN 87, Cr 2.0, glucose 119 Nutritional Hx/Data Height 1.7 m Height (Calculated Centimeters) 170.2 Current Weight (lbs) 58.967 kg Weight (Calculated Kilograms) 59.0 Weight (Calculated Grams) 65738.0 [place] Body Weight 148 Body Mass Index (BMI) 20.3 Weight Status Approriate GI Symptoms GI Symptoms None Last BM none Difficult in: None Usual diet at home glucerna 1.2 at 60ml/hr x 20hr at SN[facility] per chart Skin Integrity/Comment: scar to sacrum, pressure area to right heel, laceration to left hip non-pitting to left lower extremity and left foot, pitting 1+ to right lower extremity and right foot. Current %PO Negligible < 25% Estimated Nutritional Goals BEE in Kcals: Using Current wt Calories/Kcals/Kg 25-30 Kcals Calculated [id number] Protein: Using Current wt Protein g/k-1.2 monitor renal labs Protein Calculated 59-71 Fluid: ml per MD Nutritional Problem 1. Problem Problem altered nutrition related labs Etiology electrolytes imbalance, dx of acute renal insuff, endocrine dysfunction Signs/Symptoms: Na 158, Cl 128, BUN 59, Cr 1.4 , glucose 121 Intervention/Recommendation Comments 1. Start TF as ordered. It will provide 1440kcal and 72g protein, meeting 100% of nutritional needs. 3. Monitor TF tolerance, wt daily, skin integrity and labs 3. F/U as high risk in 2-3 days, 10/19-10/20 Expected Outcomes/Goals Expected Outcomes/Goals 1. pt to meet at least 75% of nutritional needs. 2. Wt stability, skin to remain intact, labs to approach WNL.
--- NOTE | 2017-10-23 12:02 | General Progress Note ---
Subjective - Review of Systems Service Date: 10/23/17 Subjective: sleeping, comfortable Objective - Results Result Diagrams: 10/23/17 05:30 10/23/17 05:30 Recent Labs: Laboratory Last Values WBC 11.7 Th/cmm (4.8-10.8) H 10/23/17 05:30 RBC 3.30 Mil/cmm (3.80-5.80) L 10/23/17 05:30 Hgb 9.9 gm/dL (12-16) L 10/23/17 05:30 Hct 28.9 % (41.0-60) L 10/23/17 05:30 MCV 87.6 fl (80-99) 10/23/17 05:30 MCH 29.9 pg (27.0-31.0) 10/23/17 05:30 MCHC Differential 34.1 pg (28.0-36.0) 10/23/17 05:30 RDW 15.7 % (11.5-20.0) 10/23/17 05:30 Plt Count 273 Th/cmm (150-400) 10/23/17 05:30 MPV 7.4 fl 10/23/17 05:30 Neutrophils % 64.9 % (40.0-80.0) 10/23/17 05:30 Band Neutrophils % 2 % (0-10) 10/16/17 08:15 Lymphocytes % 20.5 % (20.0-50.0) 10/23/17 05:30 Monocytes % 10.1 % (2.0-10.0) H 10/23/17 05:30 Eosinophils % 3.3 % (0.0-5.0) 10/23/17 05:30 Basophils % 1.2 % (0.0-2.0) 10/23/17 05:30 Neutrophils (Manual) 83 % (40-80) H 10/16/17 08:15 Lymphocytes 6 % (20-50) L 10/16/17 08:15 Monocytes 8 % (2-10) 10/16/17 08:15 Basophils 1 % (0-3) 10/16/17 08:15 Platelet Estimate ADEQUATE (NORMAL) 10/16/17 08:15 Eos Smear Source URINE 10/17/17 17:40 Eos Smear Total Cells NONE SEEN (NONE SEEN) 10/17/17 17:40 PT 12.0 SECONDS (9.5-11.5) H 10/17/17 13:28 INR 1.14 (0.5-1.4) 10/17/17 13:28 PTT (Actin FS) 26.0 SECONDS (26.0-38.0) 10/17/17 13:28 Specimen Source Arterial 10/17/17 09:33 Sample Site Right Radial 10/17/17 09:33 pH 7.40 (7.35-7.45) 10/17/17 09:33 pCO2 37.0 mmHg (35.0-45.0) 10/17/17 09:33 pO2 84.0 mmHg (80.0-100.0) 10/17/17 09:33 HCO3 23.7 mEq/L (20.0-26.0) 10/17/17 09:33 Base Excess -1.6 mEq/L (-3.0-3.0) 10/17/17 09:33 O2 Saturation 96.0 % (92.0-100.0) 10/17/17 09:33 Franki Test YES 10/17/17 09:33 Vent Rate NA 10/17/17 09:33 Inspired O2 28 10/17/17 09:33 Tidal Volume NA 10/17/17 09:33 PEEP NA 10/17/17 09:33 Pressure (ins/psv/peep) NA 10/17/17 09:33 Critical Value E.COOL 10/17/17 09:33 Sodium 143 mEq/L (136-145) 10/23/17 05:30 Potassium 4.4 mEq/L (3.5-5.1) 10/23/17 05:30 Chloride 110 mEq/L (98-107) H 10/23/17 05:30 Carbon Dioxide 27.1 mEq/L (21.0-31.0) 10/23/17 05:30 Anion Gap 10.3 (7.0-16.0) 10/23/17 05:30 BUN 25 mg/dL (7-25) 10/23/17 05:30 Creatinine 0.8 mg/dL (0.7-1.3) 10/23/17 05:30 Est GFR ( Amer) TNP 10/23/17 05:30 Est GFR (Non-Af Amer) TNP 10/23/17 05:30 BUN/Creatinine Ratio 31.3 10/23/17 05:30 Glucose 103 mg/dL (70-105) 10/23/17 05:30 Whole Bld Lactic Acid 1.47 mmol/L (0.60-1.99) 10/16/17 08:15 Uric Acid 3.7 mg/dL (4.4-7.6) L 10/17/17 04:20 Calcium 8.6 mg/dL (8.6-10.3) 10/23/17 05:30 Phosphorus 3.1 mg/dL (2.5-5.0) 10/17/17 04:20 Magnesium 1.9 mg/dL (1.9-2.7) 10/22/17 05:30 Total Bilirubin 0.4 mg/dL (0.3-1.0) 10/23/17 05:30 AST 41 U/L (13-39) H 10/23/17 05:30 ALT 41 U/L (7-52) 10/23/17 05:30 Alkaline Phosphatase 143 U/L (34-104) H 10/23/17 05:30 Ammonia 43 umol/L (16-53) 10/17/17 04:20 B-Natriuretic Peptide 83.6 pg/mL (5.0-100.0) 10/16/17 08:15 Total Protein 5.4 gm/dL (6.0-8.3) L 10/23/17 05:30 Albumin 2.5 gm/dL (4.2-5.5) L 10/23/17 05:30 Globulin 2.9 gm/dL 10/23/17 05:30 Albumin/Globulin Ratio 0.9 (1.0-1.8) L 10/23/17 05:30 Urine Source [place]JAR[place] 10/16/17 09:00 Urine Color YELLOW 10/16/17 09:00 Urine Clarity HAZY (CLEAR) 10/16/17 09:00 Urine pH 8.5 (4.6 - 8.0) 10/16/17 09:00 Ur Specific [place] <= 1.005 (1.005-1.030) 10/16/17 09:00 Urine Protein >=300 mg/dL (NEGATIVE) 10/16/17 09:00 Urine Glucose (UA) NEGATIVE mg/dL (NEGATIVE) 10/16/17 09:00 Urine Ketones NEGATIVE mg/dL (NEGATIVE) 10/16/17 09:00 Urine Blood SMALL (NEGATIVE) H 10/16/17 09:00 Urine Nitrate NEGATIVE (NEGATIVE) 10/16/17 09:00 Urine Bilirubin NEGATIVE (NEGATIVE) 10/16/17 09:00 Urine Urobilinogen 0.2 E.U./dL (0.2 - 1.0) 10/16/17 09:00 Ur Leukocyte Esterase MODERATE (NEGATIVE) H 10/16/17 09:00 Urine RBC 2-5 /hpf (0-5) H 10/16/17 09:00 Urine WBC 6-10 /hpf (0-5) 10/16/17 09:00 Ur Epithelial Cells FEW /lpf (FEW) 10/16/17 09:00 Triple Phos Crystals MANY /hpf (FEW) 10/16/17 09:00 Urine Bacteria MODERATE /hpf (NONE SEEN) H 10/16/17 09:00 Urine Osmolality 509 mOsmol/kg 10/18/17 15:30 Ur Random Sodium 88 mmol/L 10/17/17 17:40 Urine Creatinine 39.0 mg/dl (39.0-259.0) 10/17/17 17:40 Urine Microalbumin 116 10/16/17 09:00 Microalb/Creat Ratio 299.7 10/16/17 09:00 Vancomycin Trough 14.5 ug/mL (5-10) H 10/23/17 05:30 - Physical Exam Vitals and I&O: Vital Signs Temp 98.8 F 10/23/17 08:00 Pulse 84 10/23/17 11:39 Resp 20 10/23/17 11:39 BP 98/46 10/23/17 09:23 Pulse Ox 97 10/23/17 11:39 Intake & Output 10/22/17 10/23/17 10/23/17 18:59 06:59 18:59 Intake Total 350 400 300 Output Total 1400 Balance 350 -1000 300 Weight (lbs) 61.32 kg 61.32 kg Intake: Intake, IV Amount 350 100 Piperacillin Sodium/ 100 100 Tazobact 2.25 gm In Sodium Chloride 0.9% 50 ml @ 100 mls/hr IV Q6HR [facility] Rx#:[id number] Vancomycin HCl 1.25 gm In 250 Sodium Chloride 0.9% 250 ml @ 165 mls/hr IV Q24H [facility] Rx#:[id number] Other 300 300 Output: Urine 1400 Other: # Bowel Movements 1 Weight Source Bedscale Bedscale Active Medications: Current Medications Acetaminophen (Tylenol) 650 mg GT Q4H PRN PRN Reason: Mild pain, temp above 100 Stop: 12/16/17 08:29 Al Hydrox/Mg Hydrox/Simethicone (Maalox) 30 ml GT Q4HR PRN PRN Reason: GI distress Stop: 12/16/17 08:29 Albuterol/Ipratropium (Duoneb Neb) 3 ml HHN [id number] [facility] Stop: 12/15/17 14:59 Last Admin: 10/23/17 11:38 Dose: 3 ml Albuterol/Ipratropium (Duoneb Neb) 3 ml HHN Q4H PRN PRN Reason: Wheezing Stop: 12/16/17 08:29 Amlodipine Besylate (Norvasc) 5 mg GT DAILY [facility] Stop: 12/16/17 08:59 Last Admin: 10/23/17 09:23 Dose: Not Given Ascorbic Acid (Vitamin C) 500 mg GT DAILY [facility] Stop: 12/16/17 08:59 Last Admin: 10/23/17 09:21 Dose: 500 mg Bisacodyl (Dulcolax 10 Mg Supp) 10 mg RC DAILY PRN PRN Reason: Constipation Stop: 12/16/17 08:29 Budesonide (Pulmicort) 0.5 mg HHN BIDRT [facility] Stop: 12/15/17 18:59 Last Admin: 10/23/17 07:31 Dose: 0.5 mg Diphenhydramine HCl (Benadryl 50 Mg/Ml) 50 mg IM Q4HR PRN PRN Reason: Agitation Stop: 12/16/17 08:29 Docusate Sodium (Colace) 100 mg PO DAILY [facility] Stop: 12/16/17 08:59 Last Admin: 10/23/17 09:21 Dose: 100 mg Donepezil HCl (Aricept) 10 mg GT HS [facility] Stop: 12/16/17 20:59 Last Admin: 10/22/17 21:12 Dose: 10 mg Enoxaparin Sodium (Lovenox) 30 mg SUBQ Q12H ANG Stop: 12/17/17 16:19 Last Admin: 10/23/17 04:54 Dose: 30 mg Ferrous Sulfate (Iron) 325 mg PO BID ANG Stop: 12/16/17 08:59 Last Admin: 10/23/17 09:21 Dose: 325 mg Piperacillin Sod/Tazobactam (Sod 2.25 gm/ Sodium Chloride) 50 mls @ 100 mls/hr IV Q6HR ANG Stop: 12/15/17 12:59 Last Infusion: 10/23/17 06:16 Dose: Infused Vancomycin HCl 1.25 gm/ Sodium (Chloride) 250 mls @ 165 mls/hr IV Q24H ANG Stop: 12/21/17 08:59 Last Admin: 10/23/17 09:23 Dose: 165 mls/hr Lactobacillus Rhamnosus (Culturelle 15b) 1 each GT DAILY ANG Stop: 12/16/17 08:59 Last Admin: 10/23/17 09:21 Dose: 1 each Latanoprost (Xalatan 0.005% Oph Sol) 1 drop EACH EYE HS [facility] Stop: 12/16/17 20:59 Last Admin: 10/22/17 22:00 Dose: Not Given Lorazepam (Ativan) 1 mg GT Q6HR PRN; Protocol PRN Reason: Agitation Stop: 12/16/17 08:29 Losartan Potassium (Cozaar) 50 mg GT DAILY ANG Stop: 12/16/17 08:59 Last Admin: 10/23/17 09:22 Dose: Not Given Magnesium Hydroxide (Milk Of Magnesia) 30 ml PO HS PRN PRN Reason: Constipation Stop: 12/16/17 08:29 Memantine (Namenda) 5 mg GT BID ANG Stop: 12/16/17 08:59 Last Admin: 10/23/17 09:23 Dose: 5 mg Mineral Oil (Mineral Oil 30 Ml) 30 ml GT TID ANG Stop: 12/16/17 08:59 Last Admin: 10/23/17 09:21 Dose: 30 ml Miscellaneous (Zosyn Iv Per Pharmacy) 1 ea PRN PRN PRN Reason: PROTOCOL Stop: 12/15/17 10:42 Miscellaneous (Vancomycin Iv Per Pharmacy) 1 ea MC DAILY ANG Stop: 12/20/17 10:59 Multivitamins/Vitamin C (Theragran) 1 tab GT DAILY ANG Stop: 12/16/17 08:59 Last Admin: 10/23/17 09:21 Dose: 1 tab Olanzapine (Zyprexa) 5 mg GT HS ANG PRN Reason: Protocol Stop: 12/16/17 20:59 Last Admin: 10/22/17 21:12 Dose: 5 mg Olanzapine (Zyprexa) 2.5 mg GT DAILY ANG PRN Reason: Protocol Stop: 12/16/17 08:59 Last Admin: 10/23/17 09:22 Dose: 2.5 mg Pantoprazole Sodium (Protonix) 40 mg PO DAILY ANG Stop: 12/19/17 08:59 Last Admin: 10/23/17 09:21 Dose: 40 mg Promethazine HCl/Dextromethorphan (Phenergan Dm 6.25/15mg-5 Ml) 5 ml PO TID PRN PRN Reason: Cough Stop: 12/19/17 08:36 Last Admin: 10/21/17 08:49 Dose: 5 ml Sodium Phosphate (Fleet Enema) 135 ml RC DAILY PRN PRN Reason: Constipation Stop: 12/16/17 08:29 Tamsulosin HCl (Flomax) 0.4 mg GT HS ANG Stop: 12/16/17 20:59 Last Admin: 10/22/17 21:12 Dose: 0.4 mg Zolpidem Tartrate (Ambien) 5 mg GT HS PRN PRN Reason: Insomnia Stop: 12/16/17 08:29 General: No acute distress, Other (confused) HEENT: Atraumatic, PERRLA, EOMI Neck: Supple, +2 carotid pulse wo bruit, no JVD, no Thyromegaly Cardiovascular: Regular rate, Normal S1, Normal S2 Lungs: Other (improved breath sounds) Abdomen: Bowel sounds, Soft Extremities: no Clubbing, no Cyanosis, no Edema Neurological: Sensation intact Skin: no Rash Psych/Mental Status: Mood NL - Procedures Procedures: Procedures Procedure Code Date EGD ENDO MUCOSAL RESECTION 75779 09/08/[address] GASTROSTOMY TUBE 55707 09/08/17 EXCISION OF STOMACH, ENDO, DIAGN [id number] 09/08/17 INSERTION OF FEEDING DEVICE INTO STOMACH, PERC APPROACH [id number] 09/08/17 INTRODUCTION OF SERUM/TOX/VACCINE INTO MUSCLE, PERC APPROACH [id number] 09/08/17 Assessment/Plan - Assessment Assessment: SWATHI on CKD Sepsis 2/2 Cx UTI Met Enceph Anemia CD COPD GERD Psychosis Left lower lobe MRSA Healthcare Acquired Pna - Plan Plan: Lab - Result Diagrams 10/17/17 04:20 10/17/17 04:20 Current Medications Acetaminophen (Tylenol) 650 mg GT Q4H PRN PRN Reason: Mild pain, temp above 100 Stop: 12/16/17 08:29 Al Hydrox/Mg Hydrox/Simethicone (Maalox) 30 ml GT Q4HR PRN PRN Reason: GI distress Stop: 12/16/17 08:29 Albuterol/Ipratropium (Duoneb Neb) 3 ml HHN [id number] ANG Stop: 12/15/17 14:59 Last Admin: 10/17/17 14:45 Dose: 3 ml Albuterol/Ipratropium (Duoneb Neb) 3 ml HHN Q4H PRN PRN Reason: Wheezing Stop: 12/16/17 08:29 Amlodipine Besylate (Norvasc) 5 mg GT DAILY ANG Stop: 12/16/17 08:59 Last Admin: 10/17/17 09:37 Dose: Not Given Ascorbic Acid (Vitamin C) 500 mg GT DAILY ANG Stop: 12/16/17 08:59 Last Admin: 10/17/17 09:36 Dose: 500 mg Bisacodyl (Dulcolax 10 Mg Supp) 10 mg RC DAILY PRN PRN Reason: Constipation Stop: 12/16/17 08:29 Budesonide (Pulmicort) 0.5 mg HHN BIDRT ANG Stop: 12/15/17 18:59 Last Admin: 10/17/17 07:27 Dose: 0.5 mg Diphenhydramine HCl (Benadryl 50 Mg/Ml) 50 mg IM Q4HR PRN PRN Reason: Agitation Stop: 12/16/17 08:29 Docusate Sodium (Colace) 100 mg PO DAILY ANG Stop: 12/16/17 08:59 Last Admin: 10/17/17 09:36 Dose: 100 mg Donepezil HCl (Aricept) 10 mg GT HS ANG Stop: 12/16/17 20:59 Ferrous Sulfate (Iron) 325 mg PO BID ANG Stop: 12/16/17 08:59 Last Admin: 10/17/17 09:36 Dose: 325 mg Dextrose (D5w) 1,000 mls @ 100 mls/hr IV .Q10H ANG Stop: 12/15/17 14:29 Last Admin: 10/17/17 11:57 Dose: 100 mls/hr Piperacillin Sod/Tazobactam (Sod 2.25 gm/ Sodium Chloride) 50 mls @ 100 mls/hr IV Q6HR ANG Stop: 12/15/17 12:59 Last Admin: 10/17/17 11:59 Dose: 100 mls/hr Lactobacillus Rhamnosus (Culturelle 15b) 1 each GT DAILY ANG Stop: 12/16/17 08:59 Last Admin: 10/17/17 09:36 Dose: 1 each Latanoprost (Xalatan 0.005% Oph Soln) 1 drop EACH EYE HS [facility] Stop: 12/16/17 20:59 Lorazepam (Ativan) 1 mg GT Q6HR PRN; Protocol PRN Reason: Agitation Stop: 12/16/17 08:29 Losartan Potassium (Cozaar) 50 mg GT DAILY ANG Stop: 12/16/17 08:59 Last Admin: 10/17/17 09:37 Dose: Not Given Magnesium Hydroxide (Milk Of Magnesia) 30 ml PO HS PRN PRN Reason: Constipation Stop: 12/16/17 08:29 Memantine (Namenda) 5 mg GT BID [facility] Stop: 12/16/17 08:59 Last Admin: 10/17/17 09:36 Dose: 5 mg Mineral Oil (Mineral Oil 30 Ml) 30 ml GT TID ANG Stop: 12/16/17 08:59 Last Admin: 10/17/17 14:20 Dose: 30 ml Miscellaneous (Zosyn Iv Per Pharmacy) 1 ea MC PRN PRN PRN Reason: PROTOCOL Stop: 12/15/17 10:42 Multivitamins/Vitamin C (Theragran) 1 tab GT DAILY ANG Stop: 12/16/17 08:59 Last Admin: 10/17/17 09:36 Dose: 1 tab Mupirocin (Bactroban Oint) 1 appl NS BID ANG Stop: 10/22/17 09:01 Olanzapine (Zyprexa) 5 mg GT HS ANG PRN Reason: Protocol Stop: 12/16/17 20:59 Olanzapine (Zyprexa) 2.5 mg GT DAILY ANG PRN Reason: Protocol Stop: 12/16/17 08:59 Sodium Phosphate (Fleet Enema) 135 ml RC DAILY PRN PRN Reason: Constipation Stop: 12/16/17 08:29 Tamsulosin HCl (Flomax) 0.4 mg GT HS ANG Stop: 12/16/17 20:59 Zolpidem Tartrate (Ambien) 5 mg GT HS PRN PRN Reason: Insomnia Stop: 12/16/17 08:29 Lab - Result Diagrams 10/23/17 05:30 10/23/17 05:30 kidney fnc stable UOP also improved Na @ 143 continue D5W f/u electrolytes, cbc On Zosyn WBC down to 11.7 Nutritional Asmnt/Malnutr-PDOC - Dietary Evaluation Malnutrition Findings (Please click <Entered> for more info): Nutritional Asmnt/Malnutrition Start: 10/17/17 14: 29 Text: Status: Complete Freq: Document 10/17/17 14:29 JELLY (Rec: 10/17/17 14:49 JELLY [id number]) Nutritional Asmnt/Malnutrition Patient General Information Nutritional Screening High Risk Diagnosis ALOC, LEFT lower lobe PNA, Acute renal insuff Pertinent Medical Hx/Surgical Hx HTN, asthma/COPD, PUD/GERD, s/ p PNA, dysphagia, anemia, BPH, glaucolma, psychosis, insomnia, anxiety, dementia Subjective Information Consult received for wounds. Pt seen resting in bed at time of visit. Pt on NPO, TF not initiated at this time. Current Diet Order/ Nutrition Support Diabetisource AC 60ml/hr x 20hr Pertinent Medications vit C, D5w, colace, iron, culturelle, theragran, piperacillin Pertinent Labs 5/4 Na 158, K 4.3, Cl 128, BUN 59, Cr 1.4, glucose 121 5/3 Na 159, K 4.7, Cl 129, BUN 87, Cr 2.0, glucose 119 Nutritional Hx/Data Height 1.7 m Height (Calculated Centimeters) 170.2 Current Weight (lbs) 58.967 kg Weight (Calculated Kilograms) 59.0 Weight (Calculated Grams) 71721.0 [place] Body Weight 148 Body Mass Index (BMI) 20.3 Weight Status Approriate GI Symptoms GI Symptoms None Last BM none Difficult in: None Usual diet at home glucerna 1.2 at 60ml/hr x 20hr at SNF per chart Skin Integrity/Comment: scar to sacrum, pressure area to right heel, laceration to left hip non-pitting to left lower extremity and left foot, pitting 1+ to right lower extremity and right foot. Current %PO Negligible < 25% Estimated Nutritional Goals BEE in Kcals: Using Current wt Calories/Kcals/Kg 25-30 Kcals Calculated 9938-8184 Protein: Using Current wt Protein g/k-1.2 monitor renal labs Protein Calculated 59-71 Fluid: ml per MD Nutritional Problem 1. Problem Problem altered nutrition related labs Etiology electrolytes imbalance, dx of acute renal insuff, endocrine dysfunction Signs/Symptoms: Na 158, Cl 128, BUN 59, Cr 1.4 , glucose 121 Intervention/Recommendation Comments 1. Start TF as ordered. It will provide 1440kcal and 72g protein, meeting 100% of nutritional needs. 3. Monitor TF tolerance, wt daily, skin integrity and labs 3. F/U as high risk in 2-3 days, 10/19-10/20 Expected Outcomes/Goals Expected Outcomes/Goals 1. pt to meet at least 75% of nutritional needs. 2. Wt stability, skin to remain intact, labs to approach WNL.
--- NOTE | 2017-10-23 21:32 | Progress Notes ---
DATE: 10/23/2017 Case discussed with staff of the patient, reviewed records. The patient continues to be in bed. He is still recovering from pneumonia. He has mittens on both of his hands. I discussed with the staff taking care of him today, he is poor. He continues to have episodes of agitation, out of control behavior. So, I am reluctant to go down on the Zyprexa dose. So, he is more stable as it may affect his medical treatment because he remains very agitated, pulling the IVs. He has a G-tube, so far no side effects with the medication, no sedation, no nausea, no extrapyramidal symptoms. Thank you very much for allowing me to participate in the care of this most interesting gentleman. JOB# [id number]
--- NOTE | 2017-10-23 22:33 | Progress Notes ---
DATE: 10/23/2017 PROBLEM LIST: 1. Pneumonia. 2. Underlying psychosis with poor ability to mobilize secretion. SUBJECTIVE: The patient is obtunded, opens eyes, in no respiratory distress. PHYSICAL EXAMINATION: VITAL SIGNS: T-max 98.8 plus saturations in the mid 90s to highs 90s on room air. NECK: Veins not be visualized. CHEST: Diminished air entry with occasional rhonchi. HEART: Regular. ABDOMEN: Soft, nontender. LABORATORY DATA: The patient's white count is 11.7, electrolytes are okay. ASSESSMENT: The patient respiratory luciano is currently stable. PLANS AND SUGGESTIONS: We will continue current treatment, etc. placement should be okay. JOB# [id number]
[2017-10-24] MEDS: Piperacillin/Tazobact 2.25 gm in 0.9% NS 50 ML IV SCH ×4 (00:48→18:42)
[2017-10-24] MEDS: Enoxaparin 30 mg/0.3 mL 0.3mL Syr SUBQ SCH ×2 (05:25→16:36)
--- NOTE | 2017-10-24 06:21 | Progress Notes ---
DATE: 10/23/2017 SUBJECTIVE: The patient in bed, eyes closed. Limited interaction. Will move upper extremities and limited lower extremity. OBJECTIVE: VITAL SIGNS: Temperature 98.2, blood pressure 130/70, pulse is 74. HEENT: The patient's eyes were open. Pupils react to light. NECK: Supple. EXTREMITIES: The patient will withdraw upper extremity, increased tone with some rigidity, cogwheeling, but also lower extremity spasticity. ASSESSMENT: 1. Encephalopathy, metabolic. 2. Underlying dementia. 3. Pneumonia and sepsis. 4. Dysphagia. 5. Anemia. 6. Hypertension. 7. Psychosis. 8. Parkinsonian features. PLAN: Continue present treatment. Recommend patient follow Neurology outpatient. [facility]# [id number]
[2017-10-24] MEDS: Budesonide 0.5 Mg/2 mL Ud HHN SCH ×2 (06:55→19:37)
[2017-10-24] MEDS: Albuterol/Ipratropium Neb 3 ML AERS HHN SCH ×4 (06:55→19:37)
[2017-10-24 07:01] LABS: % BASOPHILS 1.6 % (0.0-2.0); % EOSINOPHILS 3.6 % (0.0-5.0); % LYMPHOCYTES 22.2 % (20.0-50.0); % MONOCYTES 8.7 % (2.0-10.0); % NEUTROPHILS 63.9 % (40.0-80.0); BASOPHILE ABSOLUTE 0.2 Th/cumm (0-0.2); EOSINOPHILE ABSOLUTE 0.4 Th/cmm (0.1-0.4); HEMATOCRIT 30.2 % (41.0-60); HEMOGLOBIN 10.3 gm/dL (12-16); LYMPHOCYTE ABSOLUTE 2.3 Th/cmm (1.5-3.0); MEAN CORPUSCULAR HEMOGLOBIN 29.9 pg (27.0-31.0); MEAN PLATELET VOLUME 7.2 fl; MONOCYTE ABSOLUTE 0.9 Th/cmm (0.3-1.0); NEUTROPHILE ABSOLUTE 6.7 Th/cmm (1.8-8.0); PLATELET COUNT 283 Th/cmm (150-400); RED BLOOD COUNT 3.43 Mil/cmm (3.80-5.80); RED CELL DISTRIBUTION WIDTH 15.5 % (11.5-20.0); WHITE BLOOD COUNT 10.5 Th/cmm (4.8-10.8)
--- NOTE | 2017-10-24 08:13 | General Progress Note ---
Subjective - Review of Systems Service Date: 10/24/17 Subjective: Temp 99.1 last night. but less confused. Patient recently had PICC line placement. Patient here for PNA. on Lovenox SQ for DVT LLE. +MRSA PNA. Objective - Results Result Diagrams: 10/24/17 06:45 10/23/17 05:30 Recent Labs: Laboratory Last Values WBC 10.5 Th/cmm (4.8-10.8) 10/24/17 06:45 RBC 3.43 Mil/cmm (3.80-5.80) L 10/24/17 06:45 Hgb 10.3 gm/dL (12-16) L 10/24/17 06:45 Hct 30.2 % (41.0-60) L 10/24/17 06:45 MCV 88.0 fl (80-99) 10/24/17 06:45 MCH 29.9 pg (27.0-31.0) 10/24/17 06:45 MCHC Differential 34.0 pg (28.0-36.0) 10/24/17 06:45 RDW 15.5 % (11.5-20.0) 10/24/17 06:45 Plt Count 283 Th/cmm (150-400) 10/24/17 06:45 MPV 7.2 fl 10/24/17 06:45 Neutrophils % 63.9 % (40.0-80.0) 10/24/17 06:45 Band Neutrophils % 2 % (0-10) 10/16/17 08:15 Lymphocytes % 22.2 % (20.0-50.0) 10/24/17 06:45 Monocytes % 8.7 % (2.0-10.0) 10/24/17 06:45 Eosinophils % 3.6 % (0.0-5.0) 10/24/17 06:45 Basophils % 1.6 % (0.0-2.0) 10/24/17 06:45 Neutrophils (Manual) 83 % (40-80) H 10/16/17 08:15 Lymphocytes 6 % (20-50) L 10/16/17 08:15 Monocytes 8 % (2-10) 10/16/17 08:15 Basophils 1 % (0-3) 10/16/17 08:15 Platelet Estimate ADEQUATE (NORMAL) 10/16/17 08:15 Eos Smear Source URINE 10/17/17 17:40 Eos Smear Total Cells NONE SEEN (NONE SEEN) 10/17/17 17:40 PT 12.0 SECONDS (9.5-11.5) H 10/17/17 13:28 INR 1.14 (0.5-1.4) 10/17/17 13:28 PTT (Actin FS) 26.0 SECONDS (26.0-38.0) 10/17/17 13:28 Specimen Source Arterial 10/17/17 09:33 Sample Site Right Radial 10/17/17 09:33 pH 7.40 (7.35-7.45) 10/17/17 09:33 pCO2 37.0 mmHg (35.0-45.0) 10/17/17 09:33 pO2 84.0 mmHg (80.0-100.0) 10/17/17 09:33 HCO3 23.7 mEq/L (20.0-26.0) 10/17/17 09:33 Base Excess -1.6 mEq/L (-3.0-3.0) 10/17/17 09:33 O2 Saturation 96.0 % (92.0-100.0) 10/17/17 09:33 Franki Test YES 10/17/17 09:33 Vent Rate NA 10/17/17 09:33 Inspired O2 28 10/17/17 09:33 Tidal Volume NA 10/17/17 09:33 PEEP NA 10/17/17 09:33 Pressure (ins/psv/peep) NA 10/17/17 09:33 Critical Value E.COOL 10/17/17 09:33 Sodium 143 mEq/L (136-145) 10/23/17 05:30 Potassium 4.4 mEq/L (3.5-5.1) 10/23/17 05:30 Chloride 110 mEq/L (98-107) H 10/23/17 05:30 Carbon Dioxide 27.1 mEq/L (21.0-31.0) 10/23/17 05:30 Anion Gap 10.3 (7.0-16.0) 10/23/17 05:30 BUN 25 mg/dL (7-25) 10/23/17 05:30 Creatinine 0.8 mg/dL (0.7-1.3) 10/23/17 05:30 Est GFR ( Amer) TNP 10/23/17 05:30 Est GFR (Non-Af Amer) TNP 10/23/17 05:30 BUN/Creatinine Ratio 31.3 10/23/17 05:30 Glucose 103 mg/dL (70-105) 10/23/17 05:30 Whole Bld Lactic Acid 1.47 mmol/L (0.60-1.99) 10/16/17 08:15 Uric Acid 3.7 mg/dL (4.4-7.6) L 10/17/17 04:20 Calcium 8.6 mg/dL (8.6-10.3) 10/23/17 05:30 Phosphorus 3.1 mg/dL (2.5-5.0) 10/17/17 04:20 Magnesium 1.9 mg/dL (1.9-2.7) 10/22/17 05:30 Total Bilirubin 0.4 mg/dL (0.3-1.0) 10/23/17 05:30 AST 41 U/L (13-39) H 10/23/17 05:30 ALT 41 U/L (7-52) 10/23/17 05:30 Alkaline Phosphatase 143 U/L (34-104) H 10/23/17 05:30 Ammonia 43 umol/L (16-53) 10/17/17 04:20 B-Natriuretic Peptide 83.6 pg/mL (5.0-100.0) 10/16/17 08:15 Total Protein 5.4 gm/dL (6.0-8.3) L 10/23/17 05:30 Albumin 2.5 gm/dL (4.2-5.5) L 10/23/17 05:30 Globulin 2.9 gm/dL 10/23/17 05:30 Albumin/Globulin Ratio 0.9 (1.0-1.8) L 10/23/17 05:30 Urine Source [place] 10/16/17 09:00 Urine Color YELLOW 10/16/17 09:00 Urine Clarity HAZY (CLEAR) 10/16/17 09:00 Urine pH 8.5 (4.6 - 8.0) 10/16/17 09:00 Ur Specific [place] <= 1.005 (1.005-1.030) 10/16/17 09:00 Urine Protein >=300 mg/dL (NEGATIVE) 10/16/17 09:00 Urine Glucose (UA) NEGATIVE mg/dL (NEGATIVE) 10/16/17 09:00 Urine Ketones NEGATIVE mg/dL (NEGATIVE) 10/16/17 09:00 Urine Blood SMALL (NEGATIVE) H 10/16/17 09:00 Urine Nitrate NEGATIVE (NEGATIVE) 10/16/17 09:00 Urine Bilirubin NEGATIVE (NEGATIVE) 10/16/17 09:00 Urine Urobilinogen 0.2 E.U./dL (0.2 - 1.0) 10/16/17 09:00 Ur Leukocyte Esterase MODERATE (NEGATIVE) H 10/16/17 09:00 Urine RBC 2-5 /hpf (0-5) H 10/16/17 09:00 Urine WBC 6-10 /hpf (0-5) 10/16/17 09:00 Ur Epithelial Cells FEW /lpf (FEW) 10/16/17 09:00 Triple Phos Crystals MANY /hpf (FEW) 10/16/17 09:00 Urine Bacteria MODERATE /hpf (NONE SEEN) H 10/16/17 09:00 Urine Osmolality 509 mOsmol/kg 10/18/17 15:30 Ur Random Sodium 88 mmol/L 10/17/17 17:40 Urine Creatinine 39.0 mg/dl (39.0-259.0) 10/17/17 17:40 Urine Microalbumin 116 10/16/17 09:00 Microalb/Creat Ratio 299.7 10/16/17 09:00 Vancomycin Trough 14.5 ug/mL (5-10) H 10/23/17 05:30 - Physical Exam Vitals and I&O: Vital Signs Temp 98.6 F 10/24/17 04:00 Pulse 83 10/24/17 06:59 Resp 18 10/24/17 06:59 BP 116/57 10/24/17 04:00 Pulse Ox 100 10/24/17 06:59 Intake & Output 10/23/17 10/24/17 10/24/17 18:59 06:59 18:59 Intake Total 1670 50 Output Total 200 Balance 1670 -150 Weight (lbs) 61.235 kg 61.235 kg Intake: Intake, IV Amount 350 50 Piperacillin Sodium/ 100 50 Tazobact 2.25 gm In Sodium Chloride 0.9% 50 ml @ 100 mls/hr IV Q6HR [facility] Rx#:[id number] Vancomycin HCl 1.25 gm In 250 Sodium Chloride 0.9% 250 ml @ 165 mls/hr IV Q24H [facility] Rx#:[id number] Tube Feeding 720 Other 600 Output: Urine 200 Other: # Bowel Movements 1 Weight Source Bedscale Bedscale Active Medications: Current Medications Acetaminophen (Tylenol) 650 mg GT Q4H PRN PRN Reason: Mild pain, temp above 100 Stop: 12/16/17 08:29 Al Hydrox/Mg Hydrox/Simethicone (Maalox) 30 ml GT Q4HR PRN PRN Reason: GI distress Stop: 12/16/17 08:29 Albuterol/Ipratropium (Duoneb Neb) 3 ml HHN [id number] [facility] Stop: 12/15/17 14:59 Last Admin: 10/24/17 06:55 Dose: 3 ml Albuterol/Ipratropium (Duoneb Neb) 3 ml HHN Q4H PRN PRN Reason: Wheezing Stop: 12/16/17 08:29 Amlodipine Besylate (Norvasc) 5 mg GT DAILY [facility] Stop: 12/16/17 08:59 Last Admin: 10/23/17 09:23 Dose: Not Given Ascorbic Acid (Vitamin C) 500 mg GT DAILY [facility] Stop: 12/16/17 08:59 Last Admin: 10/23/17 09:21 Dose: 500 mg Bisacodyl (Dulcolax 10 Mg Supp) 10 mg RC DAILY PRN PRN Reason: Constipation Stop: 12/16/17 08:29 Budesonide (Pulmicort) 0.5 mg HHN BIDRT [facility] Stop: 12/15/17 18:59 Last Admin: 10/24/17 06:55 Dose: 0.5 mg Diphenhydramine HCl (Benadryl 50 Mg/Ml) 50 mg IM Q4HR PRN PRN Reason: Agitation Stop: 12/16/17 08:29 Docusate Sodium (Colace) 100 mg PO DAILY [facility] Stop: 12/16/17 08:59 Last Admin: 10/23/17 09:21 Dose: 100 mg Donepezil HCl (Aricept) 10 mg GT HS [facility] Stop: 12/16/17 20:59 Last Admin: 10/23/17 21:35 Dose: 10 mg Enoxaparin Sodium (Lovenox) 30 mg SUBQ Q12H ANG Stop: 12/17/17 16:19 Last Admin: 10/24/17 05:25 Dose: 30 mg Ferrous Sulfate (Iron) 325 mg PO BID ANG Stop: 12/16/17 08:59 Last Admin: 10/23/17 16:17 Dose: 325 mg Piperacillin Sod/Tazobactam (Sod 2.25 gm/ Sodium Chloride) 50 mls @ 100 mls/hr IV Q6HR ANG Stop: 12/15/17 12:59 Last Admin: 10/24/17 05:25 Dose: 100 mls/hr Vancomycin HCl 1.25 gm/ Sodium (Chloride) 250 mls @ 165 mls/hr IV Q24H ANG Stop: 12/21/17 08:59 Last Infusion: 10/23/17 11:00 Dose: Infused Lactobacillus Rhamnosus (Culturelle 15b) 1 each GT DAILY ANG Stop: 12/16/17 08:59 Last Admin: 10/23/17 09:21 Dose: 1 each Latanoprost (Xalatan 0.005% Oph Soln) 1 drop EACH EYE HS ANG Stop: 12/16/17 20:59 Last Admin: 10/23/17 21:36 Dose: 1 drop Lorazepam (Ativan) 1 mg GT Q6HR PRN; Protocol PRN Reason: Agitation Stop: 12/16/17 08:29 Losartan Potassium (Cozaar) 50 mg GT DAILY ANG Stop: 12/16/17 08:59 Last Admin: 10/23/17 09:22 Dose: Not Given Magnesium Hydroxide (Milk Of Magnesia) 30 ml PO HS PRN PRN Reason: Constipation Stop: 12/16/17 08:29 Memantine (Namenda) 5 mg GT BID ANG Stop: 12/16/17 08:59 Last Admin: 10/23/17 16:17 Dose: 5 mg Mineral Oil (Mineral Oil 30 Ml) 30 ml GT TID ANG Stop: 12/16/17 08:59 Last Admin: 10/23/17 21:35 Dose: 30 ml Miscellaneous (Zosyn Iv Per Pharmacy) 1 ea PRN PRN PRN Reason: PROTOCOL Stop: 12/15/17 10:42 Miscellaneous (Vancomycin Iv Per Pharmacy) 1 ea MC DAILY ANG Stop: 12/20/17 10:59 Multivitamins/Vitamin C (Theragran) 1 tab GT DAILY ANG Stop: 12/16/17 08:59 Last Admin: 10/23/17 09:21 Dose: 1 tab Olanzapine (Zyprexa) 5 mg GT HS ANG PRN Reason: Protocol Stop: 12/16/17 20:59 Last Admin: 10/23/17 21:36 Dose: 5 mg Olanzapine (Zyprexa) 2.5 mg GT DAILY ANG PRN Reason: Protocol Stop: 12/16/17 08:59 Last Admin: 10/23/17 09:22 Dose: 2.5 mg Pantoprazole Sodium (Protonix) 40 mg PO DAILY [facility] Stop: 12/19/17 08:59 Last Admin: 10/23/17 09:21 Dose: 40 mg Promethazine HCl/Dextromethorphan (Phenergan Dm 6.25/15mg-5 Ml) 5 ml PO TID PRN PRN Reason: Cough Stop: 12/19/17 08:36 Last Admin: 10/21/17 08:49 Dose: 5 ml Sodium Phosphate (Fleet Enema) 135 ml RC DAILY PRN PRN Reason: Constipation Stop: 12/16/17 08:29 Tamsulosin HCl (Flomax) 0.4 mg GT HS [facility] Stop: 12/16/17 20:59 Last Admin: 10/23/17 21:35 Dose: 0.4 mg Zolpidem Tartrate (Ambien) 5 mg GT HS PRN PRN Reason: Insomnia Stop: 12/16/17 08:29 General: No acute distress, Other (confused) HEENT: Atraumatic, PERRLA, EOMI Neck: Supple, +2 carotid pulse wo bruit, no JVD, no Thyromegaly Cardiovascular: Regular rate, Normal S1, Normal S2 Lungs: Other (improved breath sounds) Abdomen: Bowel sounds, Soft Extremities: no Clubbing, no Cyanosis, no Edema Neurological: Sensation intact Skin: no Rash Psych/Mental Status: Mood NL - Procedures Procedures: Procedures Procedure Code Date EGD ENDO MUCOSAL RESECTION 89647 09/08/[address] GASTROSTOMY TUBE 75003 09/08/17 EXCISION OF STOMACH, ENDO, DIAGN [id number] 09/08/17 INSERTION OF FEEDING DEVICE INTO STOMACH, PERC APPROACH [id number] 09/08/17 INTRODUCTION OF SERUM/TOX/VACCINE INTO MUSCLE, PERC APPROACH [id number] 09/08/17 Assessment/Plan - Assessment Assessment: +MRSA Sputum ALOC secondary to Metabolic Encephalopathy Sepsis improving Anemia Hypernatremia improving Acute Renal Insufficiency improving GIANNI PNA possible aspiration. HTN Asthma COPD PUD GERD s/p gastrostomy tube placement dysphagia benign prostatic hypertrophy glaucoma psychosis insomnia anxiety DVT to LE Enlarge Prostate Right Sided Hydronephrosis hypokalemia hypomagnesemia - Plan Plan: Admit to ICU Pulmonary consult Dr Raisa Katz Nephrology consult Dr. Morales Neurology consult Dr. Serrano IV hydration IV Zosyn & Vancomycin IV repeat CBC,CMP tomorrow blood culture x2 urine culture x2 sputum culture x2 Lovenox SQ q12 PO K and Mg check Mg level repeat CBC tomorrow PICC Line Placement [employer] Acute Care Placement for IV antibiotics. Nutritional Asmnt/Malnutr-PDOC - Dietary Evaluation Malnutrition Findings (Please click <Entered> for more info): Nutritional Asmnt/Malnutrition Start: 10/17/17 14: 29 Text: Status: Complete Freq: Document 10/17/17 14:29 [facility] (Rec: 10/17/17 14:49 HEN [id number]) Nutritional Asmnt/Malnutrition Patient General Information Nutritional Screening High Risk Diagnosis ALOC, LEFT lower lobe PNA, Acute renal insuff Pertinent Medical Hx/Surgical Hx HTN, asthma/COPD, PUD/GERD, s/ p PNA, dysphagia, anemia, BPH, glaucolma, psychosis, insomnia, anxiety, dementia Subjective Information Consult received for wounds. Pt seen resting in bed at time of visit. Pt on NPO, TF not initiated at this time. Current Diet Order/ Nutrition Support Diabetisource AC 60ml/hr x 20hr Pertinent Medications vit C, D5w, colace, iron, culturelle, theragran, piperacillin Pertinent Labs 5/4 Na 158, K 4.3, Cl 128, BUN 59, Cr 1.4, glucose 121 5/3 Na 159, K 4.7, Cl 129, BUN 87, Cr 2.0, glucose 119 Nutritional Hx/Data Height 1.7 m Height (Calculated Centimeters) 170.2 Current Weight (lbs) 58.967 kg Weight (Calculated Kilograms) 59.0 Weight (Calculated Grams) 91506.0 [place] Body Weight 148 Body Mass Index (BMI) 20.3 Weight Status Approriate GI Symptoms GI Symptoms None Last BM none Difficult in: None Usual diet at home glucerna 1.2 at 60ml/hr x 20hr at [facility] per chart Skin Integrity/Comment: scar to sacrum, pressure area to right heel, laceration to left hip non-pitting to left lower extremity and left foot, pitting 1+ to right lower extremity and right foot. Current %PO Negligible < 25% Estimated Nutritional Goals BEE in Kcals: Using Current wt Calories/Kcals/Kg 25-30 Kcals Calculated 2788-9250 Protein: Using Current wt Protein g/k-1.2 monitor renal labs Protein Calculated 59-71 Fluid: ml per MD Nutritional Problem 1. Problem Problem altered nutrition related labs Etiology electrolytes imbalance, dx of acute renal insuff, endocrine dysfunction Signs/Symptoms: Na 158, Cl 128, BUN 59, Cr 1.4 , glucose 121 Intervention/Recommendation Comments 1. Start TF as ordered. It will provide 1440kcal and 72g protein, meeting 100% of nutritional needs. 3. Monitor TF tolerance, wt daily, skin integrity and labs 3. F/U as high risk in 2-3 days, 10/19-10/20 Expected Outcomes/Goals Expected Outcomes/Goals 1. pt to meet at least 75% of nutritional needs. 2. Wt stability, skin to remain intact, labs to approach WNL.
[2017-10-24] MEDS: Pantoprazole 40 mg/Packet PO SCH (10:03)
[2017-10-24] MEDS: Ferrous Sulfate 325 MG TAB PO SCH ×2 (10:04→16:37)
[2017-10-24] MEDS: Lactobacillus Rhamnosus GG 15 Billion CFU CAP.SPRINK GT SCH (10:04)
[2017-10-24] MEDS: Multivitamin Tab GT SCH (10:05)
--- NOTE | 2017-10-24 10:22 | Infectious Disease Prog Note ---
Infectious Disease Subjective - Review of Systems Service Date: 10/24/17 Subjective: There is no new change. Infectious Disease Objective - Results Result Diagrams: 10/24/17 06:45 10/23/17 05:30 Recent Labs: Laboratory Last Values WBC 10.5 Th/cmm (4.8-10.8) 10/24/17 06:45 RBC 3.43 Mil/cmm (3.80-5.80) L 10/24/17 06:45 Hgb 10.3 gm/dL (12-16) L 10/24/17 06:45 Hct 30.2 % (41.0-60) L 10/24/17 06:45 MCV 88.0 fl (80-99) 10/24/17 06:45 MCH 29.9 pg (27.0-31.0) 10/24/17 06:45 MCHC Differential 34.0 pg (28.0-36.0) 10/24/17 06:45 RDW 15.5 % (11.5-20.0) 10/24/17 06:45 Plt Count 283 Th/cmm (150-400) 10/24/17 06:45 MPV 7.2 fl 10/24/17 06:45 Neutrophils % 63.9 % (40.0-80.0) 10/24/17 06:45 Band Neutrophils % 2 % (0-10) 10/16/17 08:15 Lymphocytes % 22.2 % (20.0-50.0) 10/24/17 06:45 Monocytes % 8.7 % (2.0-10.0) 10/24/17 06:45 Eosinophils % 3.6 % (0.0-5.0) 10/24/17 06:45 Basophils % 1.6 % (0.0-2.0) 10/24/17 06:45 Neutrophils (Manual) 83 % (40-80) H 10/16/17 08:15 Lymphocytes 6 % (20-50) L 10/16/17 08:15 Monocytes 8 % (2-10) 10/16/17 08:15 Basophils 1 % (0-3) 10/16/17 08:15 Platelet Estimate ADEQUATE (NORMAL) 10/16/17 08:15 Eos Smear Source URINE 10/17/17 17:40 Eos Smear Total Cells NONE SEEN (NONE SEEN) 10/17/17 17:40 PT 12.0 SECONDS (9.5-11.5) H 10/17/17 13:28 INR 1.14 (0.5-1.4) 10/17/17 13:28 PTT (Actin FS) 26.0 SECONDS (26.0-38.0) 10/17/17 13:28 Specimen Source Arterial 10/17/17 09:33 Sample Site Right Radial 10/17/17 09:33 pH 7.40 (7.35-7.45) 10/17/17 09:33 pCO2 37.0 mmHg (35.0-45.0) 10/17/17 09:33 pO2 84.0 mmHg (80.0-100.0) 10/17/17 09:33 HCO3 23.7 mEq/L (20.0-26.0) 10/17/17 09:33 Base Excess -1.6 mEq/L (-3.0-3.0) 10/17/17 09:33 O2 Saturation 96.0 % (92.0-100.0) 10/17/17 09:33 Franki Test YES 10/17/17 09:33 Vent Rate NA 10/17/17 09:33 Inspired O2 28 10/17/17 09:33 Tidal Volume NA 10/17/17 09:33 PEEP NA 10/17/17 09:33 Pressure (ins/psv/peep) NA 10/17/17 09:33 Critical Value E.COOL 10/17/17 09:33 Sodium 143 mEq/L (136-145) 10/23/17 05:30 Potassium 4.4 mEq/L (3.5-5.1) 10/23/17 05:30 Chloride 110 mEq/L (98-107) H 10/23/17 05:30 Carbon Dioxide 27.1 mEq/L (21.0-31.0) 10/23/17 05:30 Anion Gap 10.3 (7.0-16.0) 10/23/17 05:30 BUN 25 mg/dL (7-25) 10/23/17 05:30 Creatinine 0.8 mg/dL (0.7-1.3) 10/23/17 05:30 Est GFR ( Amer) TNP 10/23/17 05:30 Est GFR (Non-Af Amer) TNP 10/23/17 05:30 BUN/Creatinine Ratio 31.3 10/23/17 05:30 Glucose 103 mg/dL (70-105) 10/23/17 05:30 Whole Bld Lactic Acid 1.47 mmol/L (0.60-1.99) 10/16/17 08:15 Uric Acid 3.7 mg/dL (4.4-7.6) L 10/17/17 04:20 Calcium 8.6 mg/dL (8.6-10.3) 10/23/17 05:30 Phosphorus 3.1 mg/dL (2.5-5.0) 10/17/17 04:20 Magnesium 1.9 mg/dL (1.9-2.7) 10/22/17 05:30 Total Bilirubin 0.4 mg/dL (0.3-1.0) 10/23/17 05:30 AST 41 U/L (13-39) H 10/23/17 05:30 ALT 41 U/L (7-52) 10/23/17 05:30 Alkaline Phosphatase 143 U/L (34-104) H 10/23/17 05:30 Ammonia 43 umol/L (16-53) 10/17/17 04:20 B-Natriuretic Peptide 83.6 pg/mL (5.0-100.0) 10/16/17 08:15 Total Protein 5.4 gm/dL (6.0-8.3) L 10/23/17 05:30 Albumin 2.5 gm/dL (4.2-5.5) L 10/23/17 05:30 Globulin 2.9 gm/dL 10/23/17 05:30 Albumin/Globulin Ratio 0.9 (1.0-1.8) L 10/23/17 05:30 Urine Source [place] 10/16/17 09:00 Urine Color YELLOW 10/16/17 09:00 Urine Clarity HAZY (CLEAR) 10/16/17 09:00 Urine pH 8.5 (4.6 - 8.0) 10/16/17 09:00 Ur Specific [place] <= 1.005 (1.005-1.030) 10/16/17 09:00 Urine Protein >=300 mg/dL (NEGATIVE) 10/16/17 09:00 Urine Glucose (UA) NEGATIVE mg/dL (NEGATIVE) 10/16/17 09:00 Urine Ketones NEGATIVE mg/dL (NEGATIVE) 10/16/17 09:00 Urine Blood SMALL (NEGATIVE) H 10/16/17 09:00 Urine Nitrate NEGATIVE (NEGATIVE) 10/16/17 09:00 Urine Bilirubin NEGATIVE (NEGATIVE) 10/16/17 09:00 Urine Urobilinogen 0.2 E.U./dL (0.2 - 1.0) 10/16/17 09:00 Ur Leukocyte Esterase MODERATE (NEGATIVE) H 10/16/17 09:00 Urine RBC 2-5 /hpf (0-5) H 10/16/17 09:00 Urine WBC 6-10 /hpf (0-5) 10/16/17 09:00 Ur Epithelial Cells FEW /lpf (FEW) 10/16/17 09:00 Triple Phos Crystals MANY /hpf (FEW) 10/16/17 09:00 Urine Bacteria MODERATE /hpf (NONE SEEN) H 10/16/17 09:00 Urine Osmolality 509 mOsmol/kg 10/18/17 15:30 Ur Random Sodium 88 mmol/L 10/17/17 17:40 Urine Creatinine 39.0 mg/dl (39.0-259.0) 10/17/17 17:40 Urine Microalbumin 116 10/16/17 09:00 Microalb/Creat Ratio 299.7 10/16/17 09:00 Vancomycin Trough 14.5 ug/mL (5-10) H 10/23/17 05:30 - Physical Exam Vitals and I&O: Vital Signs Temp 98.6 F 10/24/17 04:00 Pulse 75 10/24/17 10:04 Resp 18 10/24/17 06:59 BP 114/64 10/24/17 10:04 Pulse Ox 100 10/24/17 06:59 Intake & Output 10/23/17 10/24/17 10/24/17 18:59 06:59 18:59 Intake Total 1670 50 Output Total 200 Balance 1670 -150 Weight (lbs) 61.235 kg 61.235 kg Intake: Intake, IV Amount 350 50 Piperacillin Sodium/ 100 50 Tazobact 2.25 gm In Sodium Chloride 0.9% 50 ml @ 100 mls/hr IV Q6HR [facility] Rx#:[id number] Vancomycin HCl 1.25 gm In 250 Sodium Chloride 0.9% 250 ml @ 165 mls/hr IV Q24H [facility] Rx#:[id number] Tube Feeding 720 Other 600 Output: Urine 200 Other: # Bowel Movements 1 Weight Source Bedscale Bedscale Active Medications: Current Medications Acetaminophen (Tylenol) 650 mg GT Q4H PRN PRN Reason: Mild pain, temp above 100 Stop: 12/16/17 08:29 Al Hydrox/Mg Hydrox/Simethicone (Maalox) 30 ml GT Q4HR PRN PRN Reason: GI distress Stop: 12/16/17 08:29 Albuterol/Ipratropium (Duoneb Neb) 3 ml HHN [id number] [facility] Stop: 12/15/17 14:59 Last Admin: 10/24/17 06:55 Dose: 3 ml Albuterol/Ipratropium (Duoneb Neb) 3 ml HHN Q4H PRN PRN Reason: Wheezing Stop: 12/16/17 08:29 Amlodipine Besylate (Norvasc) 5 mg GT DAILY [facility] Stop: 12/16/17 08:59 Last Admin: 10/23/17 09:23 Dose: Not Given Ascorbic Acid (Vitamin C) 500 mg GT DAILY [facility] Stop: 12/16/17 08:59 Last Admin: 10/24/17 10:04 Dose: 500 mg Bisacodyl (Dulcolax 10 Mg Supp) 10 mg RC DAILY PRN PRN Reason: Constipation Stop: 12/16/17 08:29 Budesonide (Pulmicort) 0.5 mg HHN BIDRT [facility] Stop: 12/15/17 18:59 Last Admin: 10/24/17 06:55 Dose: 0.5 mg Diphenhydramine HCl (Benadryl 50 Mg/Ml) 50 mg IM Q4HR PRN PRN Reason: Agitation Stop: 12/16/17 08:29 Docusate Sodium (Colace) 100 mg PO DAILY [facility] Stop: 12/16/17 08:59 Last Admin: 10/24/17 10:04 Dose: 100 mg Donepezil HCl (Aricept) 10 mg GT HS [facility] Stop: 12/16/17 20:59 Last Admin: 10/23/17 21:35 Dose: 10 mg Enoxaparin Sodium (Lovenox) 30 mg SUBQ Q12H ANG Stop: 12/17/17 16:19 Last Admin: 10/24/17 05:25 Dose: 30 mg Ferrous Sulfate (Iron) 325 mg PO BID ANG Stop: 12/16/17 08:59 Last Admin: 10/24/17 10:04 Dose: 325 mg Piperacillin Sod/Tazobactam (Sod 2.25 gm/ Sodium Chloride) 50 mls @ 100 mls/hr IV Q6HR ANG Stop: 12/15/17 12:59 Last Admin: 10/24/17 05:25 Dose: 100 mls/hr Vancomycin HCl 1.25 gm/ Sodium (Chloride) 250 mls @ 165 mls/hr IV Q24H ANG Stop: 12/21/17 08:59 Last Infusion: 10/23/17 11:00 Dose: Infused Lactobacillus Rhamnosus (Culturelle 15b) 1 each GT DAILY ANG Stop: 12/16/17 08:59 Last Admin: 10/24/17 10:04 Dose: 1 each Latanoprost (Xalatan 0.005% [facility]) 1 drop EACH EYE HS ANG Stop: 12/16/17 20:59 Last Admin: 10/23/17 21:36 Dose: 1 drop Lorazepam (Ativan) 1 mg GT Q6HR PRN; Protocol PRN Reason: Agitation Stop: 12/16/17 08:29 Losartan Potassium (Cozaar) 50 mg GT DAILY ANG Stop: 12/16/17 08:59 Last Admin: 10/24/17 10:04 Dose: 50 mg Magnesium Hydroxide (Milk Of Magnesia) 30 ml PO HS PRN PRN Reason: Constipation Stop: 12/16/17 08:29 Memantine (Namenda) 5 mg GT BID ANG Stop: 12/16/17 08:59 Last Admin: 10/24/17 10:04 Dose: 5 mg Mineral Oil (Mineral Oil 30 Ml) 30 ml GT TID ANG Stop: 12/16/17 08:59 Last Admin: 10/24/17 10:03 Dose: 30 ml Miscellaneous (Zosyn Iv Per Pharmacy) 1 ea PRN PRN PRN Reason: PROTOCOL Stop: 12/15/17 10:42 Miscellaneous (Vancomycin Iv Per Pharmacy) 1 ea MC DAILY ANG Stop: 12/20/17 10:59 Multivitamins/Vitamin C (Theragran) 1 tab GT DAILY ANG Stop: 12/16/17 08:59 Last Admin: 10/24/17 10:05 Dose: 1 tab Olanzapine (Zyprexa) 5 mg GT HS ANG PRN Reason: Protocol Stop: 12/16/17 20:59 Last Admin: 10/23/17 21:36 Dose: 5 mg Olanzapine (Zyprexa) 2.5 mg GT DAILY ANG PRN Reason: Protocol Stop: 12/16/17 08:59 Last Admin: 10/24/17 10:06 Dose: 2.5 mg Pantoprazole Sodium (Protonix) 40 mg PO DAILY ANG Stop: 12/19/17 08:59 Last Admin: 10/24/17 10:03 Dose: 40 mg Promethazine HCl/Dextromethorphan (Phenergan Dm 6.25/15mg-5 Ml) 5 ml PO TID PRN PRN Reason: Cough Stop: 12/19/17 08:36 Last Admin: 10/21/17 08:49 Dose: 5 ml Sodium Phosphate (Fleet Enema) 135 ml RC DAILY PRN PRN Reason: Constipation Stop: 12/16/17 08:29 Tamsulosin HCl (Flomax) 0.4 mg GT HS ANG Stop: 12/16/17 20:59 Last Admin: 10/23/17 21:35 Dose: 0.4 mg Zolpidem Tartrate (Ambien) 5 mg GT HS PRN PRN Reason: Insomnia Stop: 12/16/17 08:29 General: no acute distress, cachectic HEENT: atraumatic, normocephalic, PERRLA, EOMI Neck: supple, no thyromegaly Cardiovascular: S1S2, regular Lungs: clear to percussion, crackles Abdomen: soft, no tender, no distended Extremities: no cyanosis, no clubbing, no edema Neurological: awake, alert Skin: intact - Procedures Procedures: Procedures Procedure Code Date EGD ENDO MUCOSAL RESECTION 40665 09/08/[address] GASTROSTOMY TUBE 87662 09/08/17 EXCISION OF STOMACH, ENDO, DIAGN [id number] 09/08/17 INSERTION OF FEEDING DEVICE INTO STOMACH, PERC APPROACH [id number] 09/08/17 INTRODUCTION OF SERUM/TOX/VACCINE INTO MUSCLE, PERC APPROACH [id number] 09/08/17 Infectious Disease Assmt/Plan - Assessment Assessment: 1. MRSA pneumonia. LLL. 2. Leukocytosis. 3. UTI. 4. psychosis. 5. Anxiety disorder. 6. hypertension. 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 8. COPD. 9. History of aspiration pneumonia. 10. GERD, peptic ulcer disease. 11. BPH. 12. Dysphagia. 13. G-tube placement. 14. Dementia. - Plan Plan: Continue vancomycin IV and Zosyn. Nutritional Asmnt/Malnutr-PDOC - Dietary Evaluation Malnutrition Findings (Please click <Entered> for more info): Nutritional Asmnt/Malnutrition Start: 10/17/17 14: 29 Text: Status: Complete Freq: Document 10/17/17 14:29 JELLY (Rec: 10/17/17 14:49 [email or web address] [email or web address]) Nutritional Asmnt/Malnutrition Patient General Information Nutritional Screening High Risk Diagnosis ALOC, LEFT lower lobe PNA, Acute renal insuff Pertinent Medical Hx/Surgical Hx HTN, asthma/COPD, PUD/GERD, s/ p PNA, dysphagia, anemia, BPH, glaucolma, psychosis, insomnia, anxiety, dementia Subjective Information Consult received for wounds. Pt seen resting in bed at time of visit. Pt on NPO, TF not initiated at this time. Current Diet Order/ Nutrition Support Diabetisource AC 60ml/hr x 20hr Pertinent Medications vit C, D5w, colace, iron, culturelle, theragran, piperacillin Pertinent Labs 5/4 Na 158, K 4.3, Cl 128, BUN 59, Cr 1.4, glucose 121 5/3 Na 159, K 4.7, Cl 129, BUN 87, Cr 2.0, glucose 119 Nutritional Hx/Data Height 1.7 m Height (Calculated Centimeters) 170.2 Current Weight (lbs) 58.967 kg Weight (Calculated Kilograms) 59.0 Weight (Calculated Grams) 50476.0 [place] Body Weight 148 Body Mass Index (BMI) 20.3 Weight Status Approriate GI Symptoms GI Symptoms None Last BM none Difficult in: None Usual diet at home glucerna 1.2 at 60ml/hr x 20hr at SN[facility] per chart Skin Integrity/Comment: scar to sacrum, pressure area to right heel, laceration to left hip non-pitting to left lower extremity and left foot, pitting 1+ to right lower extremity and right foot. Current %PO Negligible < 25% Estimated Nutritional Goals BEE in Kcals: Using Current wt Calories/Kcals/Kg 25-30 Kcals Calculated [id number] Protein: Using Current wt Protein g/k-1.2 monitor renal labs Protein Calculated 59-71 Fluid: ml per MD Nutritional Problem 1. Problem Problem altered nutrition related labs Etiology electrolytes imbalance, dx of acute renal insuff, endocrine dysfunction Signs/Symptoms: Na 158, Cl 128, BUN 59, Cr 1.4 , glucose 121 Intervention/Recommendation Comments 1. Start TF as ordered. It will provide 1440kcal and 72g protein, meeting 100% of nutritional needs. 3. Monitor TF tolerance, wt daily, skin integrity and labs 3. F/U as high risk in 2-3 days, 10/19-10/20 Expected Outcomes/Goals Expected Outcomes/Goals 1. pt to meet at least 75% of nutritional needs. 2. Wt stability, skin to remain intact, labs to approach WNL.
[2017-10-24] MEDS ORDERED: Probiotic Screen MC PRN (13:50)
--- NOTE | 2017-10-24 14:31 | General Progress Note ---
Subjective - Review of Systems Service Date: 10/24/17 Subjective: sleeping, comfortable Objective - Results Result Diagrams: 10/24/17 06:45 10/23/17 05:30 Recent Labs: Laboratory Last Values WBC 10.5 Th/cmm (4.8-10.8) 10/24/17 06:45 RBC 3.43 Mil/cmm (3.80-5.80) L 10/24/17 06:45 Hgb 10.3 gm/dL (12-16) L 10/24/17 06:45 Hct 30.2 % (41.0-60) L 10/24/17 06:45 MCV 88.0 fl (80-99) 10/24/17 06:45 MCH 29.9 pg (27.0-31.0) 10/24/17 06:45 MCHC Differential 34.0 pg (28.0-36.0) 10/24/17 06:45 RDW 15.5 % (11.5-20.0) 10/24/17 06:45 Plt Count 283 Th/cmm (150-400) 10/24/17 06:45 MPV 7.2 fl 10/24/17 06:45 Neutrophils % 63.9 % (40.0-80.0) 10/24/17 06:45 Band Neutrophils % 2 % (0-10) 10/16/17 08:15 Lymphocytes % 22.2 % (20.0-50.0) 10/24/17 06:45 Monocytes % 8.7 % (2.0-10.0) 10/24/17 06:45 Eosinophils % 3.6 % (0.0-5.0) 10/24/17 06:45 Basophils % 1.6 % (0.0-2.0) 10/24/17 06:45 Neutrophils (Manual) 83 % (40-80) H 10/16/17 08:15 Lymphocytes 6 % (20-50) L 10/16/17 08:15 Monocytes 8 % (2-10) 10/16/17 08:15 Basophils 1 % (0-3) 10/16/17 08:15 Platelet Estimate ADEQUATE (NORMAL) 10/16/17 08:15 Eos Smear Source URINE 10/17/17 17:40 Eos Smear Total Cells NONE SEEN (NONE SEEN) 10/17/17 17:40 PT 12.0 SECONDS (9.5-11.5) H 10/17/17 13:28 INR 1.14 (0.5-1.4) 10/17/17 13:28 PTT (Actin FS) 26.0 SECONDS (26.0-38.0) 10/17/17 13:28 Specimen Source Arterial 10/17/17 09:33 Sample Site Right Radial 10/17/17 09:33 pH 7.40 (7.35-7.45) 10/17/17 09:33 pCO2 37.0 mmHg (35.0-45.0) 10/17/17 09:33 pO2 84.0 mmHg (80.0-100.0) 10/17/17 09:33 HCO3 23.7 mEq/L (20.0-26.0) 10/17/17 09:33 Base Excess -1.6 mEq/L (-3.0-3.0) 10/17/17 09:33 O2 Saturation 96.0 % (92.0-100.0) 10/17/17 09:33 Franki Test YES 10/17/17 09:33 Vent Rate NA 10/17/17 09:33 Inspired O2 28 10/17/17 09:33 Tidal Volume NA 10/17/17 09:33 PEEP NA 10/17/17 09:33 Pressure (ins/psv/peep) NA 10/17/17 09:33 Critical Value E.COOL 10/17/17 09:33 Sodium 143 mEq/L (136-145) 10/23/17 05:30 Potassium 4.4 mEq/L (3.5-5.1) 10/23/17 05:30 Chloride 110 mEq/L (98-107) H 10/23/17 05:30 Carbon Dioxide 27.1 mEq/L (21.0-31.0) 10/23/17 05:30 Anion Gap 10.3 (7.0-16.0) 10/23/17 05:30 BUN 25 mg/dL (7-25) 10/23/17 05:30 Creatinine 0.8 mg/dL (0.7-1.3) 10/23/17 05:30 Est GFR ( Amer) TNP 10/23/17 05:30 Est GFR (Non-Af Amer) TNP 10/23/17 05:30 BUN/Creatinine Ratio 31.3 10/23/17 05:30 Glucose 103 mg/dL (70-105) 10/23/17 05:30 Whole Bld Lactic Acid 1.47 mmol/L (0.60-1.99) 10/16/17 08:15 Uric Acid 3.7 mg/dL (4.4-7.6) L 10/17/17 04:20 Calcium 8.6 mg/dL (8.6-10.3) 10/23/17 05:30 Phosphorus 3.1 mg/dL (2.5-5.0) 10/17/17 04:20 Magnesium 1.9 mg/dL (1.9-2.7) 10/22/17 05:30 Total Bilirubin 0.4 mg/dL (0.3-1.0) 10/23/17 05:30 AST 41 U/L (13-39) H 10/23/17 05:30 ALT 41 U/L (7-52) 10/23/17 05:30 Alkaline Phosphatase 143 U/L (34-104) H 10/23/17 05:30 Ammonia 43 umol/L (16-53) 10/17/17 04:20 B-Natriuretic Peptide 83.6 pg/mL (5.0-100.0) 10/16/17 08:15 Total Protein 5.4 gm/dL (6.0-8.3) L 10/23/17 05:30 Albumin 2.5 gm/dL (4.2-5.5) L 10/23/17 05:30 Globulin 2.9 gm/dL 10/23/17 05:30 Albumin/Globulin Ratio 0.9 (1.0-1.8) L 10/23/17 05:30 Urine Source MANJAR[place] 10/16/17 09:00 Urine Color YELLOW 10/16/17 09:00 Urine Clarity HAZY (CLEAR) 10/16/17 09:00 Urine pH 8.5 (4.6 - 8.0) 10/16/17 09:00 Ur Specific [place] <= 1.005 (1.005-1.030) 10/16/17 09:00 Urine Protein >=300 mg/dL (NEGATIVE) 10/16/17 09:00 Urine Glucose (UA) NEGATIVE mg/dL (NEGATIVE) 10/16/17 09:00 Urine Ketones NEGATIVE mg/dL (NEGATIVE) 10/16/17 09:00 Urine Blood SMALL (NEGATIVE) H 10/16/17 09:00 Urine Nitrate NEGATIVE (NEGATIVE) 10/16/17 09:00 Urine Bilirubin NEGATIVE (NEGATIVE) 10/16/17 09:00 Urine Urobilinogen 0.2 E.U./dL (0.2 - 1.0) 10/16/17 09:00 Ur Leukocyte Esterase MODERATE (NEGATIVE) H 10/16/17 09:00 Urine RBC 2-5 /hpf (0-5) H 10/16/17 09:00 Urine WBC 6-10 /hpf (0-5) 10/16/17 09:00 Ur Epithelial Cells FEW /lpf (FEW) 10/16/17 09:00 Triple Phos Crystals MANY /hpf (FEW) 10/16/17 09:00 Urine Bacteria MODERATE /hpf (NONE SEEN) H 10/16/17 09:00 Urine Osmolality 509 mOsmol/kg 10/18/17 15:30 Ur Random Sodium 88 mmol/L 10/17/17 17:40 Urine Creatinine 39.0 mg/dl (39.0-259.0) 10/17/17 17:40 Urine Microalbumin 116 10/16/17 09:00 Microalb/Creat Ratio 299.7 10/16/17 09:00 Vancomycin Trough 14.5 ug/mL (5-10) H 10/23/17 05:30 - Physical Exam Vitals and I&O: Vital Signs Temp 98.6 F 10/24/17 04:00 Pulse 81 10/24/17 10:23 Resp 18 10/24/17 10:23 BP 114/64 10/24/17 10:04 Pulse Ox 97 10/24/17 10:23 Intake & Output 10/23/17 10/24/17 10/24/17 18:59 06:59 18:59 Intake Total 1670 50 Output Total 200 Balance 1670 -150 Weight (lbs) 61.235 kg 61.235 kg Intake: Intake, IV Amount 350 50 Piperacillin Sodium/ 100 50 Tazobact 2.25 gm In Sodium Chloride 0.9% 50 ml @ 100 mls/hr IV Q6HR [facility] Rx#:[id number] Vancomycin HCl 1.25 gm In 250 Sodium Chloride 0.9% 250 ml @ 165 mls/hr IV Q24H [facility] Rx#:[id number] Tube Feeding 720 Other 600 Output: Urine 200 Other: # Bowel Movements 1 Weight Source Bedscale Bedscale Active Medications: Current Medications Acetaminophen (Tylenol) 650 mg GT Q4H PRN PRN Reason: Mild pain, temp above 100 Stop: 12/16/17 08:29 Al Hydrox/Mg Hydrox/Simethicone (Maalox) 30 ml GT Q4HR PRN PRN Reason: GI distress Stop: 12/16/17 08:29 Albuterol/Ipratropium (Duoneb Neb) 3 ml HHN [id number] [facility] Stop: 12/15/17 14:59 Last Admin: 10/24/17 10:23 Dose: 3 ml Albuterol/Ipratropium (Duoneb Neb) 3 ml HHN Q4H PRN PRN Reason: Wheezing Stop: 12/16/17 08:29 Amlodipine Besylate (Norvasc) 5 mg GT DAILY [facility] Stop: 12/16/17 08:59 Last Admin: 10/23/17 09:23 Dose: Not Given Ascorbic Acid (Vitamin C) 500 mg GT DAILY [facility] Stop: 12/16/17 08:59 Last Admin: 10/24/17 10:04 Dose: 500 mg Bisacodyl (Dulcolax 10 Mg Supp) 10 mg RC DAILY PRN PRN Reason: Constipation Stop: 12/16/17 08:29 Budesonide (Pulmicort) 0.5 mg HHN BIDRT [facility] Stop: 12/15/17 18:59 Last Admin: 10/24/17 06:55 Dose: 0.5 mg Diphenhydramine HCl (Benadryl 50 Mg/Ml) 50 mg IM Q4HR PRN PRN Reason: Agitation Stop: 12/16/17 08:29 Docusate Sodium (Colace) 100 mg PO DAILY [facility] Stop: 12/16/17 08:59 Last Admin: 10/24/17 10:04 Dose: 100 mg Donepezil HCl (Aricept) 10 mg GT HS [facility] Stop: 12/16/17 20:59 Last Admin: 10/23/17 21:35 Dose: 10 mg Enoxaparin Sodium (Lovenox) 30 mg SUBQ Q12H ANG Stop: 12/17/17 16:19 Last Admin: 10/24/17 05:25 Dose: 30 mg Ferrous Sulfate (Iron) 325 mg PO BID ANG Stop: 12/16/17 08:59 Last Admin: 10/24/17 10:04 Dose: 325 mg Piperacillin Sod/Tazobactam (Sod 2.25 gm/ Sodium Chloride) 50 mls @ 100 mls/hr IV Q6HR ANG Stop: 12/15/17 12:59 Last Admin: 10/24/17 05:25 Dose: 100 mls/hr Vancomycin HCl 1.25 gm/ Sodium (Chloride) 250 mls @ 165 mls/hr IV Q24H ANG Stop: 12/21/17 08:59 Last Infusion: 10/23/17 11:00 Dose: Infused Lactobacillus Rhamnosus (Culturelle 15b) 1 each GT DAILY ANG Stop: 12/16/17 08:59 Last Admin: 10/24/17 10:04 Dose: 1 each Latanoprost (Xalatan 0.005% Oph Sol) 1 drop EACH EYE HS ANG Stop: 12/16/17 20:59 Last Admin: 10/23/17 21:36 Dose: 1 drop Lorazepam (Ativan) 1 mg GT Q6HR PRN; Protocol PRN Reason: Agitation Stop: 12/16/17 08:29 Losartan Potassium (Cozaar) 50 mg GT DAILY ANG Stop: 12/16/17 08:59 Last Admin: 10/24/17 10:04 Dose: 50 mg Magnesium Hydroxide (Milk Of Magnesia) 30 ml PO HS PRN PRN Reason: Constipation Stop: 12/16/17 08:29 Memantine (Namenda) 5 mg GT BID ANG Stop: 12/16/17 08:59 Last Admin: 10/24/17 10:04 Dose: 5 mg Mineral Oil (Mineral Oil 30 Ml) 30 ml GT TID ANG Stop: 12/16/17 08:59 Last Admin: 10/24/17 10:03 Dose: 30 ml Miscellaneous (Zosyn Iv Per Pharmacy) 1 ea PRN PRN PRN Reason: PROTOCOL Stop: 12/15/17 10:42 Miscellaneous (Vancomycin Iv Per Pharmacy) 1 ea MC DAILY ANG Stop: 12/20/17 10:59 Miscellaneous (Probiotic Screen) 1 ea PRN PRN PRN Reason: PROTOCOL Stop: 12/23/17 13:49 Multivitamins/Vitamin C (Theragran) 1 tab GT DAILY ANG Stop: 12/16/17 08:59 Last Admin: 10/24/17 10:05 Dose: 1 tab Olanzapine (Zyprexa) 5 mg GT HS ANG PRN Reason: Protocol Stop: 12/16/17 20:59 Last Admin: 10/23/17 21:36 Dose: 5 mg Olanzapine (Zyprexa) 2.5 mg GT DAILY ANG PRN Reason: Protocol Stop: 12/16/17 08:59 Last Admin: 10/24/17 10:06 Dose: 2.5 mg Pantoprazole Sodium (Protonix) 40 mg PO DAILY ANG Stop: 12/19/17 08:59 Last Admin: 10/24/17 10:03 Dose: 40 mg Promethazine HCl/Dextromethorphan (Phenergan Dm 6.25/15mg-5 Ml) 5 ml PO TID PRN PRN Reason: Cough Stop: 12/19/17 08:36 Last Admin: 10/21/17 08:49 Dose: 5 ml Sodium Phosphate (Fleet Enema) 135 ml RC DAILY PRN PRN Reason: Constipation Stop: 12/16/17 08:29 Tamsulosin HCl (Flomax) 0.4 mg GT HS [facility] Stop: 12/16/17 20:59 Last Admin: 10/23/17 21:35 Dose: 0.4 mg Zolpidem Tartrate (Ambien) 5 mg GT HS PRN PRN Reason: Insomnia Stop: 12/16/17 08:29 General: No acute distress, Other (confused) HEENT: Atraumatic, PERRLA, EOMI Neck: Supple, +2 carotid pulse wo bruit, no JVD, no Thyromegaly Cardiovascular: Regular rate, Normal S1, Normal S2 Lungs: Other (improved breath sounds) Abdomen: Bowel sounds, Soft Extremities: no Clubbing, no Cyanosis, no Edema Neurological: Sensation intact Skin: no Rash Psych/Mental Status: Mood NL - Procedures Procedures: Procedures Procedure Code Date EGD ENDO MUCOSAL RESECTION 90913 09/08/[address] GASTROSTOMY TUBE 67729 09/08/17 EXCISION OF STOMACH, ENDO, DIAGN 4VT23SB 09/08/17 INSERTION OF FEEDING DEVICE INTO STOMACH, PERC APPROACH [id number] 09/08/17 INTRODUCTION OF SERUM/TOX/VACCINE INTO MUSCLE, PERC APPROACH [id number] 09/08/17 Assessment/Plan - Assessment Assessment: SWATHI on CKD Sepsis 2/2 Cx UTI Met Enceph Anemia CD COPD GERD Psychosis Left lower lobe MRSA Healthcare Acquired Pna - Plan Plan: Lab - Result Diagrams 10/17/17 04:20 10/17/17 04:20 Current Medications Acetaminophen (Tylenol) 650 mg GT Q4H PRN PRN Reason: Mild pain, temp above 100 Stop: 12/16/17 08:29 Al Hydrox/Mg Hydrox/Simethicone (Maalox) 30 ml GT Q4HR PRN PRN Reason: GI distress Stop: 12/16/17 08:29 Albuterol/Ipratropium (Duoneb Neb) 3 ml HHN [id number] [facility] Stop: 12/15/17 14:59 Last Admin: 10/17/17 14:45 Dose: 3 ml Albuterol/Ipratropium (Duoneb Neb) 3 ml HHN Q4H PRN PRN Reason: Wheezing Stop: 12/16/17 08:29 Amlodipine Besylate (Norvasc) 5 mg GT DAILY ANG Stop: 12/16/17 08:59 Last Admin: 10/17/17 09:37 Dose: Not Given Ascorbic Acid (Vitamin C) 500 mg GT DAILY [facility] Stop: 12/16/17 08:59 Last Admin: 10/17/17 09:36 Dose: 500 mg Bisacodyl (Dulcolax 10 Mg Supp) 10 mg RC DAILY PRN PRN Reason: Constipation Stop: 12/16/17 08:29 Budesonide (Pulmicort) 0.5 mg HHN BIDRT [facility] Stop: 12/15/17 18:59 Last Admin: 10/17/17 07:27 Dose: 0.5 mg Diphenhydramine HCl (Benadryl 50 Mg/Ml) 50 mg IM Q4HR PRN PRN Reason: Agitation Stop: 12/16/17 08:29 Docusate Sodium (Colace) 100 mg PO DAILY ANG Stop: 12/16/17 08:59 Last Admin: 10/17/17 09:36 Dose: 100 mg Donepezil HCl (Aricept) 10 mg GT HS [facility] Stop: 07/03/18 20:59 Ferrous Sulfate (Iron) 325 mg PO BID ANG Stop: 12/16/17 08:59 Last Admin: 10/17/17 09:36 Dose: 325 mg Dextrose (D5w) 1,000 mls @ 100 mls/hr IV .Q10H ANG Stop: 12/15/17 14:29 Last Admin: 10/17/17 11:57 Dose: 100 mls/hr Piperacillin Sod/Tazobactam (Sod 2.25 gm/ Sodium Chloride) 50 mls @ 100 mls/hr IV Q6HR ANG Stop: 12/15/17 12:59 Last Admin: 10/17/17 11:59 Dose: 100 mls/hr Lactobacillus Rhamnosus (Culturelle 15b) 1 each GT DAILY ANG Stop: 12/16/17 08:59 Last Admin: 10/17/17 09:36 Dose: 1 each Latanoprost (Xalatan 0.005% Ophth Soln) 1 drop EACH EYE HS [facility] Stop: 12/16/17 20:59 Lorazepam (Ativan) 1 mg GT Q6HR PRN; Protocol PRN Reason: Agitation Stop: 12/16/17 08:29 Losartan Potassium (Cozaar) 50 mg GT DAILY ANG Stop: 12/16/17 08:59 Last Admin: 10/17/17 09:37 Dose: Not Given Magnesium Hydroxide (Milk Of Magnesia) 30 ml PO HS PRN PRN Reason: Constipation Stop: 12/16/17 08:29 Memantine (Namenda) 5 mg GT BID ANG Stop: 12/16/17 08:59 Last Admin: 10/17/17 09:36 Dose: 5 mg Mineral Oil (Mineral Oil 30 Ml) 30 ml GT TID ANG Stop: 12/16/17 08:59 Last Admin: 10/17/17 14:20 Dose: 30 ml Miscellaneous (Zosyn Iv Per Pharmacy) 1 ea PRN PRN PRN Reason: PROTOCOL Stop: 12/15/17 10:42 Multivitamins/Vitamin C (Theragran) 1 tab GT DAILY ANG Stop: 12/16/17 08:59 Last Admin: 10/17/17 09:36 Dose: 1 tab Mupirocin (Bactroban Oint) 1 appl NS BID [facility] Stop: 10/22/17 09:01 Olanzapine (Zyprexa) 5 mg GT HS ANG PRN Reason: Protocol Stop: 12/16/17 20:59 Olanzapine (Zyprexa) 2.5 mg GT DAILY ANG PRN Reason: Protocol Stop: 12/16/17 08:59 Sodium Phosphate (Fleet Enema) 135 ml RC DAILY PRN PRN Reason: Constipation Stop: 12/16/17 08:29 Tamsulosin HCl (Flomax) 0.4 mg GT HS ANG Stop: 12/16/17 20:59 Zolpidem Tartrate (Ambien) 5 mg GT HS PRN PRN Reason: Insomnia Stop: 12/16/17 08:29 Lab - Result Diagrams 10/24/17 06:45 10/23/17 05:30 kidney fnc stable UOP also improved Na @ 143 continue D5W f/u electrolytes, cbc On Zosyn WBC down to 10.5 Nutritional Asmnt/Malnutr-PDOC - Dietary Evaluation Malnutrition Findings (Please click <Entered> for more info): Nutritional Asmnt/Malnutrition Start: 10/17/17 14: 29 Text: Status: Complete Freq: Document 10/17/17 14:29 LCHENG (Rec: 10/17/17 14:49 LCHENG [id number]) Nutritional Asmnt/Malnutrition Patient General Information Nutritional Screening High Risk Diagnosis ALOC, LEFT lower lobe PNA, Acute renal insuff Pertinent Medical Hx/Surgical Hx HTN, asthma/COPD, PUD/GERD, s/ p PNA, dysphagia, anemia, BPH, glaucolma, psychosis, insomnia, anxiety, dementia Subjective Information Consult received for wounds. Pt seen resting in bed at time of visit. Pt on NPO, TF not initiated at this time. Current Diet Order/ Nutrition Support Diabetisource AC 60ml/hr x 20hr Pertinent Medications vit C, D5w, colace, iron, culturelle, theragran, piperacillin Pertinent Labs 5/4 Na 158, K 4.3, Cl 128, BUN 59, Cr 1.4, glucose 121 5/3 Na 159, K 4.7, Cl 129, BUN 87, Cr 2.0, glucose 119 Nutritional Hx/Data Height 1.7 m Height (Calculated Centimeters) 170.2 Current Weight (lbs) 58.967 kg Weight (Calculated Kilograms) 59.0 Weight (Calculated Grams) 22409.0 [place] Body Weight 148 Body Mass Index (BMI) 20.3 Weight Status Approriate GI Symptoms GI Symptoms None Last BM none Difficult in: None Usual diet at home glucerna 1.2 at 60ml/hr x 20hr at SNF per chart Skin Integrity/Comment: scar to sacrum, pressure area to right heel, laceration to left hip non-pitting to left lower extremity and left foot, pitting 1+ to right lower extremity and right foot. Current %PO Negligible < 25% Estimated Nutritional Goals BEE in Kcals: Using Current wt Calories/Kcals/Kg 25-30 Kcals Calculated 2620-8347 Protein: Using Current wt Protein g/k-1.2 monitor renal labs Protein Calculated 59-71 Fluid: ml per MD Nutritional Problem 1. Problem Problem altered nutrition related labs Etiology electrolytes imbalance, dx of acute renal insuff, endocrine dysfunction Signs/Symptoms: Na 158, Cl 128, BUN 59, Cr 1.4 , glucose 121 Intervention/Recommendation Comments 1. Start TF as ordered. It will provide 1440kcal and 72g protein, meeting 100% of nutritional needs. 3. Monitor TF tolerance, wt daily, skin integrity and labs 3. F/U as high risk in 2-3 days, 10/19-10/20 Expected Outcomes/Goals Expected Outcomes/Goals 1. pt to meet at least 75% of nutritional needs. 2. Wt stability, skin to remain intact, labs to approach WNL.
[2017-10-24] MEDS ORDERED: Albuterol/Ipratropium Neb 3 ML AERS HHN ONE (14:54)
--- NOTE | 2017-10-24 23:56 | Progress Notes ---
DATE: 10/24/2017 SUBJECTIVE: Case was discussed with staff of the patient, reviewed records. The patient continues to do the same. He continues to have episodes of agitation, irritability, and striking at staff. Continues to be unable to make safe plan for self-care, unpredictable, impulsive, and needing redirection. He is demented and confused. No side effects to the medication, no sedation, no nausea, and no extrapyramidal symptoms. He is nonverbal in general. Because of agitation, all people take care of him. We will need to keep ____ for now and discontinue while he go back to the nursing facility. Thank you very much for allowing me to participate in the care of this most interesting gentleman. JOB# [id number]
--- NOTE | 2017-10-26 00:18 | Progress Notes ---
DATE: 10/24/2017 PROBLEM LIST: 1. Chronic encephalopathic state. 2. Chronic pneumonia, acute improved significantly. SYMPTOMS: Nil. Noncommunicative, altered. Not in acute respiratory distress. PHYSICAL EXAMINATION: VITAL SIGNS: T-max 99.7, BP is 126/87, saturation 100% on room air. NECK: Veins not visualized. CHEST: Shows diminished air entry with occasional rhonchi. HEART: Regular. ABDOMEN: Soft, nontender. LABORATORY DATA: White count is 10.5, hemoglobin 10.0. ASSESSMENT: The patient is clinically stable and improving. PLANS AND SUGGESTIONS: Okay for pulmonary [facility] for discharge and go from there. JOB# [id number]
== END 2017-10-24 22:15 | DRG 871 ==
LOC: ER 07:38 → ICU 10:46 → TELE 10-20 17:10 → MSI 10-23 13:00
PROVIDERS: ADMIT Family Medicine; ATTEND Family Medicine
PROC: 5A09357 Assistance with Respiratory Ventilation, Less than 24 Consecutive Hours, Continuous Positive Airway Pressure (ICD-10-PCS; principal; 2017-10-19)
PROC: 5A09457 Assistance with Respiratory Ventilation, 24-96 Consecutive Hours, Continuous Positive Airway Pressure (ICD-10-PCS; 2017-10-22)
DX: A41.9 Sepsis, unspecified organism (principal); G93.41 Metabolic encephalopathy; J15.212 Pneumonia due to Methicillin resistant Staphylococcus aureus; E87.0 Hyperosmolality and hypernatremia; N17.9 Acute kidney failure, unspecified; J96.10 Chronic respiratory failure, unspecified whether with hypoxia or hypercapnia; N13.30 Unspecified hydronephrosis; N39.0 Urinary tract infection, site not specified; J44.0 Chronic obstructive pulmonary disease with (acute) lower respiratory infection; I82.412 Acute embolism and thrombosis of left femoral vein; K27.9 Peptic ulcer, site unspecified, unspecified as acute or chronic, without hemorrhage or perforation; K21.9 Gastro-esophageal reflux disease without esophagitis; Z93.1 Gastrostomy status; R13.10 Dysphagia, unspecified; N40.0 Benign prostatic hyperplasia without lower urinary tract symptoms; H40.9 Unspecified glaucoma; F29 Unspecified psychosis not due to a substance or known physiological condition; G47.00 Insomnia, unspecified; F41.9 Anxiety disorder, unspecified; I12.9 Hypertensive chronic kidney disease with stage 1 through stage 4 chronic kidney disease, or unspecified chronic kidney disease; N18.9 Chronic kidney disease, unspecified; E86.0 Dehydration; E83.42 Hypomagnesemia; E87.6 Hypokalemia; J84.10 Pulmonary fibrosis, unspecified; G30.9 Alzheimer's disease, unspecified; F02.80 Dementia in other diseases classified elsewhere, unspecified severity, without behavioral disturbance, psychotic disturbance, mood disturbance, and anxiety; D63.8 Anemia in other chronic diseases classified elsewhere; G20 Parkinson's disease
CPT/HCPCS: 36415-UA; 36600-90; 70450-TC; 71045-TC; 76770-TC; 80048-TC; 80053-TC; 80202-TC; 81001-TC; 81015-TC; 82043-90; 82140-TC; 82570-TC; 82803-TC; 83605; 83735-TC; 83880-TC; 83935-90; 84100-TC; 84300-TC; 84550-TC; 85007-TC; 85025-TC; 85027-TC; 85610-TC; 87070; 87086-90; 93970-TC-50; 94640; 94660; 94760; J1650; J2543; J3370; J7030; J7040; J7042; J7070; Z7610